=== PATIENT | female | born 1955 | race Caucasian/White ===

== ENCOUNTER 2023-03-09 12:28 | Emergency (ER) | payer MEDICARE, SELFPAY ==
--- NOTE | ~2023-03-09 | CT_ITS ---
EXAMINATION: CT abdomen pelvis wo con DATE: 03/09/2023 14:38 INDICATION: Right lower quadrant pain. Hematuria. TECHNIQUE: Computed tomography (CT) of the abdomen and pelvis was performed without intravenous contr ast. The dose-length product was 1002.51 mGy-cm. Automated exposure control and iterative reconstruct ion technique were employed. COMPARISON: No prior studies for comparison. FINDINGS: Lung bases are unremarkable. Heart size normal. No significant pleural or pericardial effus ion. No significant vascular abnormality. No lymphadenopathy. Small fat-containing umbilical hernia. Fatty infiltration of the liver. The spleen, pancreas, adrenal glands and left kidney are unremarkabl e. There is a 3 mm distal right ureteral stone with moderate right hydronephrosis. The left kidney is unremarkable. Normal appendix. Gallbladder is present. Moderate lumbar spondylosis. There is a punct ate 1 mm nonobstructing right renal stone. There is a gallstone. IMPRESSION: 1. Distal right ureteral stone measuring 3 mm with moderate hydronephrosis. 2: Punctate 1 mm right renal stone. 3: Cholelithiasis. 4: Hepatic steatosis. Reviewed, dictated and finalized at location []
[2023-03-09 12:41] VITALS: BP 178/98; PULSE 104; TEMP 36.5; O2SAT 97
[2023-03-09 14:08] LABS: Basophils Percent Auto 0.1 % (0.2-1.2); Hematocrit 43.2 % (37.0-47.0); Hemoglobin 14.6 g/dL (12.0-15.0); Immature Granulocyte Absolute 0.06 K/mm3 (0.00-0.031); Immature Granulocyte Percent A 0.4 % (0-0.5); Lymphocytes Absolute Auto 1.96 K/mm3 (0.9-3.2); Mean Corpuscular HGB Conc 33.8 g/dl (32-36); Mean Corpuscular Hemoglobin 29.3 pg (26-34); Mean Corpuscular Volume 86.7 fl (80-100); Mean Platelet Volume 10.5 fl (7.4-10.4); Monocytes Absolute Auto 0.6 K/mm3 (0.1-0.6); Monocytes Percent Auto 4.3 % (2.6-8.5); Neutrophils Absolute Auto 11.3 K/mm3 (1.3-6.7); Neutrophils Percent Auto 81.2 % (45.5-73.1); Platelet Count Result 214 k/mm3 (150-375); Red Blood Count 4.98 M/mm3 (4.2-5.4); Red Cell Distribution Width 12.3 % (11.5-14.5)
[2023-03-09 14:19] LABS: INR 0.9; Prothrombin Time 12.9 Seconds (11.1-14.7)
[2023-03-09 14:20] LABS: Lactic Acid Reflex 3.6 mmol/L (0.7-2.0); Partial Thromboplastin Time 25.4 SECONDS (22.3-36.8)
[2023-03-09 14:22] LABS: Appearance Urine Cloudy (Clear); Bacteria Urine None Seen /hpf; Bilirubin Urine Negative (Negative); Blood Urine 3+ (Negative); Color Urine Dark Yellow (Yellow); Glucose Urine UA Negative (Negative); Ketones Urine 2+ mg/dL (Negative); Leukocyte Esterase Ur 2+ LEU/UL (Negative); Need Manual Microscopic Reviewed; Nitrate Urine Negative (Negative); Protein Urine Trace mg/dL (Negative); RBC Urine 21-50 /hpf (0-2); Specific Grav Ur 1.023 (1.001-1.035); Squamous Epithelial Cell Urine Few /hpf (Few); Urobilinogen Urine 0.2 mg/dL (<2.0); WBC Urine 0-5 /hpf; pH Urine 5.5 (5.0-9.0)
--- NOTE | 2023-03-09 14:22 | ED.ABDPAIN ---
HPI - Abdominal Pain General Chief Complaint: Abdominal Pain Stated Complaint: abdominal pain Time Seen by Provider: 03/09/23 12:47 History of Present Illness HPI narrative: 67-year-old female presented the emergency department for evaluation of right-sided abdominal pain. Patient was recently treated for a urinary tract infection due to her hematuria, patient states that she did take the antibiotics, her urine culture came back negative and patient is still having right lower quadrant pain. Patient presented to the emergency department for further evaluation. Patient has no prior history of kidney stones. Review of Systems Review of Systems: All systems reviewed & are unremarkable except as noted in HPI and below Exam Narrative: APPEARANCE: Well appearing, no pain, no distress, well-nourished. HEAD: normocephalic, atraumatic. EYES: PERRLA/EOMI, conjunctivae clear. NOSE: Normal no drainage NECK: Supple. No adenopathy, no masses. RESPIRATORY: Airway patent, respirations nonlabored. Clear to auscultation bilaterally, no rales, rhonchi, wheezing. CARDIOVASCULAR: Regular rate and rhythm without murmurs rubs or gallops. ABDOMINAL: Soft, right lower quadrant pain without significant tenderness to palpation MUSCULOSKELETAL: Moves all extremities. Strength/ROM intact, No edema, No calf tenderness. NEURO: Alert. Cranial nerves II through XII intact. Grossly intact SKIN: Warm, dry. Normal Color PSYCHIATRIC: Normal affect/mood. Course Course Emergency Course: Patient is afebrile but is tachycardic. Patient has a leukocytosis of 14.1. Patient's lactic acid is elevated at 3.6. Patient was treated with 1 L IV saline. Patient lactic acid was normal after rehydration. UA showed no evidence of infection but did show some hematuria. CT scan did show distal right ureteral stone measuring 3 mm with moderate hydronephrosis. Patient declined any medications for pain control in the ED. A follow-up will be provided medications for pain control for home. Patient was updated on the results of the work-up and was encouraged of close follow-up with urology. Patient was also educated on reasons to return to the emergency department. All question concerns were addressed. Vital Signs Vital signs: Vital Signs Temperature 97.7 F 03/09/23 12:41 Pulse Rate 104 H 03/09/23 12:41 Blood Pressure 178/98 H 03/09/23 12:41 Pulse Oximetry 97 03/09/23 12:41 Temperature 97.7 F 03/09/23 12:41 Pulse Rate 104 H 03/09/23 12:41 Blood Pressure 178/98 H 03/09/23 12:41 Pulse Oximetry 97 03/09/23 12:41 MDM - Abdominal Pain Lab Data Attestation: I reviewed the patient's lab results. 03/09/23 13:59 03/09/23 13:59 Labs: Lab Results 03/09/23 03/09/23 Range/Units 13:59 16:26 WBC 14.0 H (4.5-10.0) K/mm3 RBC 4.98 (4.2-5.4) M/mm3 Hgb 14.6 (12.0-15.0) g/dL Hct 43.2 (37.0-47.0) % MCV 86.7 (80-100) fl MCH 29.3 (26-34) pg MCHC 33.8 (32-36) g/dl RDW 12.3 (11.5-14.5) % Plt Count 214 (150-375) k/mm3 MPV 10.5 H (7.4-10.4) fl Immature Gran % (Auto) 0.4 (0-0.5) % Neut % (Auto) 81.2 H (45.5-73.1) % Lymph % (Auto) 14.0 L (18.3-44.2) % [place] % (Auto) 4.3 (2.6-8.5) % Eos % (Auto) 0.0 (0-4.4) % Baso % (Auto) 0.1 L (0.2-1.2) % Lymph # (Auto) 1.96 (0.9-3.2) K/mm3 [place] # (Auto) 0.6 (0.1-0.6) K/mm3 Eos # (Auto) 0.0 (0-0.3) K/mm3 Baso # (Auto) 0.0 (0.0-0.1) K/mm3 Abs Immat Gran (auto) 0.06 H (0.00-0.031) K/mm3 Absolute Neuts (auto) 11.3 H (1.3-6.7) K/mm3 Absolute Nucleated RBC 0.0 (0.0-0.012) K/mm3 Nucleated RBC % 0.0 (0.0-0.2) % PT 12.9 (11.1-14.7) Seconds INR 0.9 APTT 25.4 (22.3-36.8) SECONDS Sodium 139 (137-145) mmol/L Potassium 3.5 (3.4-5.0) mmol/L Chloride 99 (98-107) mmol/L Carbon Dioxide 29 (22-30) mmol/L Anion Gap 11 (8-16) mmol/L BUN 19 H (7-17) mg/dL Creatinine 0.80 (0.7-1.
[2023-03-09 14:23] LABS: Add Urine Microscopic? YES; Albumin Level 4.8 g/dL (3.5-5.1); Alkaline Phosphatase 123 U/L (38-126); Anion Gap 11 mmol/L (8-16); Aspartate Amino Transferase 37 U/L (14-36); Bilirubin,Total 1.4 mg/dL (0.2-1.3); Blood Urea Nitrogen 19 mg/dL (7-17); Calcium 9.7 mg/dL (8.4-10.2); Carbon Dioxide 29 mmol/L (22-30); Chloride 99 mmol/L (98-107); Estimated Glomerular Filt Rate > 60; Glucose 151 mg/dL (65-110); Potassium 3.5 mmol/L (3.4-5.0); Sodium 139 mmol/L (137-145)
[2023-03-09 14:27] LABS: Alanine Aminotransferase 47 U/L (6-35)
[2023-03-09] MEDS: SODIUM CHLORIDE 0.9% IV 1,000 ML 999 ML IV CONT (15:10)
[2023-03-09 16:45] LABS: Lactic Acid Reflex 2.1 mmol/L (0.7-2.0)
[2023-03-09 17:06] LABS: Reflex Lactic Acid Yes or No Add Lactic
== END 2023-03-09 17:39 | disposition home or self-care (01) ==
PROVIDERS: Emergency Provider Emergency Medicine; PCP Internal Medicine Gastroenterology
DX: N13.2 Hydronephrosis with renal and ureteral calculous obstruction (principal); R31.9 Hematuria, unspecified; K76.0 Fatty (change of) liver, not elsewhere classified; K80.20 Calculus of gallbladder without cholecystitis without obstruction
CPT/HCPCS: 36415; 74176; 80053; 81001; 83605; 85025; 85610; 85730; 96360; 99284; J7030

== ENCOUNTER 2024-10-15 09:03 | Inpatient (IN) | payer MEDICARE, SELFPAY ==
[2024-10-15] VITALS (13 sets, daily range): BP systolic 120–153; BP diastolic 63–93; PULSE 92–113; RESP 15–20; TEMP 36.3–37.4; O2SAT 93–98; BMI 37.8
--- NOTE | ~2024-10-15 | CT_ITS ---
EXAMINATION: CT abdomen pelvis w con DATE: 10/15/2024 10:32 INDICATION: Right lower abdominal pain, nausea and vomiting TECHNIQUE: Computed tomography (CT) of the abdomen and pelvis was performed with 100 mL Omnipaque-350 intravenous contrast. Automated exposure control and iterative reconstruction technique were employe d. The dose-length product was 704.31 mGy-cm. COMPARISON: CT dated 03/09/2023 FINDINGS: Mild atelectasis in the right lower lobe. Heart size normal. Atherosclerotic coronary artery calcific location. No pericardial effusion. Postoperative changes with surgical clips at the left breast. Sma ll sliding-type hiatal hernia. Couple calcified gallstones the dependent aspect of the otherwise norm al-appearing gallbladder. Liver, spleen, pancreas, bilateral adrenal glands are normal. 1.2 cm soft t issue density lesion at the lower pole of the right kidney equivocal for neoplasm versus complex prot einaceous/hemorrhagic cyst. Small bowel and appendix are normal. Normal appendix. Small diverticulum along a loop of small bowel in the central abdomen. There is wall thickening in the proximal colon wa s gently mild but more prominent in the region of the hepatic flexure where there is inflammatory str anding, groundglass and small nodular soft tissue densities in the surrounding fat which is all new s wagner the prior study. No abscess, free intraperitoneal gas or significant ascites. Partially decompre ssed bladder is normal. The uterus and bilateral ovaries are not identified there are surgical clips in the pelvis consistent with likely prior hysterectomy and bilateral salpingo-oophorectomy. Interval increase in size of a cluster of small aortocaval lymph nodes the largest measuring 9 mm in maximal short axis diameter. No pathologically enlarged abdominal or pelvic lymphadenopathy. Mild lumbar dext roscoliosis with moderate spondylosis. IMPRESSION: 1. Wall thickening at the hepatic flexure the colon with prominent surrounding inflammatory stranding without abscess or free intraperitoneal gas which could be due to radiographically uncomplicated foc al colitis, diverticulitis or malignancy. Recommend colonoscopy for further evaluation. 2. Indeterminate 1.2 cm soft tissue density lesion at the lower pole the right kidney which could rep resent renal cell carcinoma or a complex proteinaceous/hemorrhagic cyst. Recommend further evaluation with pre and postcontrast MRI or CT. 3. Small sliding-type hiatal hernia. 4. Cholelithiasis. 5. Mild aortocaval lymphadenopathy most likely reactive although could not exclude metastatic disease in the setting of malignancy. Reviewed, dictated and finalized at location A. EMS MECHANIC IMPRESSION: 1. Wall thickening at the hepatic flexure the colon with prominent surrounding inflammatory stranding without abscess or free intraperitoneal gas which could be due to radiographically uncomplicated focal colitis, diverticulitis or malig susy. Recommend colonoscopy for further evaluation. 2. Indeterminate 1.2 cm soft tissue density lesion at the lower pole the right kidney which could represent renal cell carcinoma or a complex proteinaceous/he morrhagic cyst. Recommend further evaluation with pre and postcontrast MRI or C T. 3. Small sliding-type hiatal hernia. 4. Cholelithiasis. 5. Mild aortocaval lymphadenopathy most likely reactive although could not excl ude metastatic disease in the setting of malignancy.
--- NOTE | ~2024-10-15 | US_ITS ---
EXAMINATION: US abdomen limited DATE: 10/17/2024 08:30 INDICATION: Nausea and vomiting. TECHNIQUE: Multiple grayscale and Doppler ultrasound images of the abdomen were obtained. COMPARISON: CT abdomen and pelvis 10/15/2024 FINDINGS: The visualized portions of the head, body, and tail of pancreas are normal. There is diffus e hepatic steatosis. There is normal flow in main portal vein. The gallbladder is normal in size cont ains gallstones. No gallbladder wall thickening or sonographic Maurer sign. The common duct is normal and measures 4 mm. IMPRESSION: 1. Diffuse hepatic steatosis. 2. Cholelithiasis. No evidence of acute cholecystitis. Reviewed, dictated and finalized at location B. GE PERSON
[2024-10-15 09:53] LABS: Basophils Percent Auto 0.2 % (0.2-1.2); Hematocrit 44.5 % (37.0-47.0); Hemoglobin 14.8 g/dL (12.0-15.0); Immature Granulocyte Absolute 0.09 K/mm3 (0.00-0.031); Immature Granulocyte Percent A 0.4 % (0-0.5); Lymphocytes Absolute Auto 1.62 K/mm3 (0.9-3.2); Lymphocytes Percent Auto 6.9 % (18.3-44.2); Mean Corpuscular HGB Conc 33.3 g/dl (32-36); Mean Corpuscular Hemoglobin 28.6 pg (26-34); Mean Corpuscular Volume 86.1 fl (80-100); Mean Platelet Volume 10.4 fl (7.4-10.4); Neutrophils Absolute Auto 20.8 K/mm3 (1.3-6.7); Neutrophils Percent Auto 88.5 % (45.5-73.1); Platelet Count Result 296 k/mm3 (150-375); Red Blood Count 5.17 M/mm3 (4.2-5.4); Red Cell Distribution Width 12.1 % (11.5-14.5); White Blood Count 23.5 K/mm3 (4.5-10.0)
--- NOTE | 2024-10-15 09:56 | ED_ITS ---
HPI - Female Genitourinary General Chief complaint: Urogenital-Female <ALIZA Ma Last Filed: 10/15/24 13:23> Stated complaint: R FLANK PAIN,N/V <Nava Lopez PA-C - Last Filed: 10/15/24 13:23> Time Seen by Provider: 10/15/24 09:30 <ALIZA Ma Last Filed: 10/15/24 13:23> Source: patient <ALIZA Ma Last Filed: 10/15/24 13:23> Mode of arrival: ambulatory <ALIZA Ma Last Filed: 10/15/24 13:23> Limitations: no limitations <ALIZA Ma Last Filed: 10/15/24 13:23> History of Present Illness HPI Narrative: Patient is a 68 y/o female who presents to the ED with c/o right lower abdominal pain. Patient reports pain has been ongoing for the last week or so, but became worse over the last 2 days. Does radiate around to her lower back. States she was diagnosed with a UTI on 10/08 at her primary care doctor's office. Started on Cipro for 5 days. Completed this, but reported no change in symptoms. Reported having nausea and vomiting last night and today. Denies dysuria, hematuria, fevers. Does have history of previous kidney stone. <ALIZA Ma Last Filed: 10/15/24 13:23> Related Data Home medications: Home Medications ?Medication ?Instructions ?Recorded ?Confirmed ?Last Taken ?Type amlodipine 5 mg tablet 5 mg PO DAILY 10/15/24 10/15/24 10/15/24 History aspirin 81 mg chewable tablet 81 mg PO DAILY 10/15/24 10/15/24 10/14/24 History ezetimibe 10 mg tablet 10 mg PO DAILY 10/15/24 10/15/24 10/14/24 History losartan 100 1 tablet PO DAILY 10/15/24 10/15/24 10/15/24 History mg-hydrochlorothiazide 12.5 mg tablet metoprolol succinate 50 mg 50 mg PO Q12H 10/15/24 10/15/24 10/14/24 History tablet,extended release 24 hr potassium chloride 10 mEq 10 meq PO DAILY 10/15/24 10/15/24 10/14/24 History tablet,extended release pravastatin 40 mg tablet 40 mg PO DAILY 10/15/24 10/15/24 10/14/24 History <Nava Lopez PA-C - Last Filed: 10/15/24 13:23> Allergies/Adverse reactions: Allergies Allergy/AdvReac Type Severity Reaction Status Date / Time No Known Allergies Allergy Verified 10/15/24 09:05 <Nava Lopez PA-C - Last Filed: 10/15/24 13:23> Review of Systems 2 Review of Systems: All systems reviewed & are unremarkable except as noted in HPI. <Nava Lopez PA-C - Last Filed: 10/15/24 13:23> All systems reviewed & are unremarkable except as noted in HPI and below < Nava Lopez PA-C - Last Filed: 10/15/24 13:23> [facility] Family History Family History: Family History (Updated 10/15/24 @ 15:00 by Denia Diaz RN) Sibling Lung cancer COVID Diabetes mellitus Father Leukemia Mother Heart trouble <Nava Lopez PA-C - Last Filed: 10/15/24 13:23> Social History Social History: Social History Smoking status: Never smoker Alcohol intake: never Substance use: never Do You Feel Safe in your Home?: Yes Lack of Transportation: No Lack of Food: Never True Current Housing: I Have Housing Concerned About Future Housing: No Difficulty Paying Gas/Electric Bills: No Difficulty Paying for Meds: No Currently Unemployed: No Education: Grade School Difficulty w/ Childcare or Family Care: No Spiritual care concerns: No <Nava Lopez PA-C - Last Filed: 10/15/24 13:23> Exam 2 Narrative: GENERAL: Well appearing, obese with BMI of 36.1, non-toxic, in no acute distress. HEAD: Normocephalic, atraumatic. RESPIRATORY: Airway patent, respirations nonlabored. Clear to auscultation bilaterally, no rales, rhonchi, wheezing. CARDIOVASCULAR: Regular rate and rhythm without murmurs, rubs, or gallops. ABDOMINAL: Soft, mild tenderness and right upper, mid/lower abdomen. Nondistended. Normoactive BS. No significant CVA tenderness to percussion. MUSCULOSKELETAL: Moves all extremities. No gross deformities. SKIN: Warm, dry, normal color. NEURO: A&O X3. Speech clear. Cranial nerves II-XII grossly intact. Steady gait. No ataxic movements. PSYCHIATRIC: Appropriate mood and affect. Normal interaction. <Nava Lopez PA-C - Last Filed: 10/15/24 13:23> Course COLOR PASTE MIXING SUPERVISOR/PA Physician Supervision For this patient encounter, I reviewed the COLOR PASTE MIXING SUPERVISOR or PA documentation, treatment plan, and medical decision making; and I had [id number] time with this patient. <Baldemar Greenberg MD - Last Filed: 10/15/24 18:38> Vital Signs Vital signs: Vital Signs Temperature 98.6 F 10/15/24 09:04 Pulse Rate 100 10/15/24 09:04 Respiratory Rate 16 10/15/24 09:04 Blood Pressure 150/73 H 10/15/24 09:04 Pulse Oximetry 98 10/15/24 09:04 Oxygen Delivery Room Air 10/15/24 09:04 Temperature 99.3 F 10/15/24 14:05 Pulse Rate 101 H 10/15/24 16:04 Respiratory Rate 16 10/15/24 14:30 Blood Pressure 136/70 10/15/24 14:05 Pulse Oximetry 93 10/15/24 14:30 Oxygen Delivery Room Air 10/15/24 14:30 <Nava Lopez PA-C - Last Filed: 10/15/24 13:23> Vital Signs Temperature 98.6 F 10/15/24 09:04 Pulse Rate 100 10/15/24 09:04 Respiratory Rate 16 10/15/24 09:04 Blood Pressure 150/73 H 10/15/24 09:04 Pulse Oximetry 98 10/15/24 09:04 Oxygen Delivery Room Air 10/15/24 09:04 Temperature 99.3 F 10/15/24 14:05 Pulse Rate 101 H 10/15/24 16:04 Respiratory Rate 16 10/15/24 14:30 Blood Pressure 136/70 10/15/24 14:05 Pulse Oximetry 93 10/15/24 14:30 Oxygen Delivery Room Air 10/15/24 14:30 <Baldemar Greenberg MD - Last Filed: 10/15/24 18:38> MDM - Female Genitourinary MDM Narrative Medical decision making narrative: Patient presented to ED with right lower abdominal pain, N/V, recent UTI. Vital signs are stable upon arrival. Patient is in no acute distress. CBC with elevated white blood cell count of 23.5. Neutrophil predominance. No bandemia. CMP with potassium 3.2. Oral replacement given. Mild anion gap of 17. Normal bicarb. Fluids initiated. Blood sugar is very mildly elevated to 175. Kidney function is stable. Normal LFTs. UA with trace ketones, 1+ leuk esterase, 6-10 whites. No urine bacteria seen. Sent for culture. CT scan of abd/pelvis obtained and showing area of wall thickening at hepatic flexure, could be consistent with focal colitis vs diverticulitis vs malignancy. Given marked leukocytosis, blood cultures obtained, will start antibiotics for colitis/diverticulitis/infectious process. Patient is meeting criteria for sepsis based on VS, leukocytosis. Lactic acid is also elevated to 3.7. Will continue to trend. Radiology recommended colonoscopy for further eval. Discussed lab and imaging findings with patient, need for admission. She is in agreement with plan. Will discuss with GI. Patient did have a colonoscopy last year. She states she had 6 polyps at that time. Was due to have repeat scope this year, but has not scheduled this yet. States last BM was this morning and yesterday and was normal. No rectal bleeding or melena. Discussed case with Dr. Turpin, GI, will consult. Advised likely do not need to repeat colonoscopy given patient had one performed last year. Discussed case with Dr. Adam, hospitalist, accepted patient for admission. Patient is in agreement with plan. <Nava Lopez PA-C - Last Filed: 10/15/24 13:23> Medical Records Attestation: I reviewed the patient's medical records. <Nava Lopez PA-C - Last Filed: 10/15/24 13:23> Lab Data Attestation: I reviewed the patient's lab results. <Nava Lopez PA-C - Last Filed: 10/15/24 13:23> Result diagrams: 10/15/24 09:44 10/15/24 09:44 <Nava Lopez PA-C - Last Filed: 10/15/24 13:23> Labs: Lab Results 10/15/24 10/15/24 Range/Units 09:44 10:59 WBC 23.5 H (4.5-10.0) K/mm3 RBC 5.17 (4.2-5.4) M/mm3 Hgb 14.8 (12.0-15.0) g/dL Hct 44.5 (37.0-47.0) % MCV 86.1 (80-100) fl MCH 28.6 (26-34) pg MCHC 33.3 (32-36) g/dl RDW 12.1 (11.5-14.5) % Plt Count 296 (150-375) k/mm3 MPV 10.4 (7.4-10.4) fl Immature Gran % (Auto) 0.4 (0-0.5) % Neut % (Auto) 88.5 H (45.5-73.1) % Lymph % (Auto) 6.9 L (18.3-44.2) % [place] % (Auto) 4.0 (2.6-8.5) % Eos % (Auto) 0.0 (0-4.4) % Baso % (Auto) 0.2 (0.2-1.2) % Lymph # (Auto) 1.62 (0.9-3.2) K/mm3 [place] # (Auto) 1.0 H (0.1-0.6) K/mm3 Eos # (Auto) 0.0 (0-0.3) K/mm3 Baso # (Auto) 0.0 (0.0-0.1) K/mm3 Abs Immat Gran (auto) 0.09 H (0.00-0.031) K/mm3 Absolute Neuts (auto) 20.8 H (1.3-6.7) K/mm3 Absolute Nucleated RBC 0.000 (0.0-0.012) K/mm3 Nucleated RBC % 0.0 (0.0-0.2) % Sodium 139 (137-145) mmol/L Potassium 3.2 L (3.4-5.0) mmol/L Chloride 95 L (98-107) mmol/L Carbon Dioxide 27 (22-30) mmol/L Anion Gap 17 H (4-12) mmol/L BUN 17 (7-17) mg/dL Creatinine 0.65 L (0.7-1.0) mg/dL Estim Creat Clear Calc 71 ml/min Estimated GFR > 60 (59 - ) Glucose 175 H (65-110) mg/dL Lactic Acid 3.7 H (0.7-2.0) mmol/L Calcium 10.6 H (8.4-10.2) mg/dL Magnesium 1.8 (1.6-2.3) mg/dL Total Bilirubin 1.3 (0.2-1.3) mg/dL AST 27 (14-36) U/L ALT 26 (6-35) U/L Alkaline Phosphatase 108 (38-126) U/L Total Protein 9.0 H (6.3-8.2) g/dL Albumin 4.8 (3.5-5.1) g/dL Urine Color Dark yellow (Yellow) Urine Appearance Cloudy H (Clear) Urine pH 5.5 (5.0-9.0) Ur Specific [place] 1.033 (1.001-1.035) Urine Protein 1+ H (Negative) mg/dL Urine Glucose (UA) Negative (Negative) mg/dL Urine Ketones Trace H (Negative) mg/dL Ur Blood (Man) Negative (Negative) Urine Nitrate Negative (Negative) Urine Bilirubin 1+ H (Negative) Urine Urobilinogen 1.0 (<2.0) mg/dL Add Ur Microanalysis Reviewed Leukocyte Esterase Rfl 1+ H (Negative) JULIAN/UL Urine RBC 6-10 H (0-2) /hpf Urine WBC 6-10 H (0-3) /hpf Ur Squamous Epith Cells Many H (Few) /hpf Calcium Oxalate Crystal Present (None) /hpf Urine Bacteria None seen /hpf Urine Casts 3-5 <Nava Lopez PA-C - Last Filed: 10/15/24 13:23> Lab Results 10/15/24 10/15/24 Range/Units 09:44 10:59 WBC 23.5 H (4.5-10.0) K/mm3 RBC 5.17 (4.2-5.4) M/mm3 Hgb 14.8 (12.0-15.0) g/dL Hct 44.5 (37.0-47.0) % MCV 86.1 (80-100) fl MCH 28.6 (26-34) pg MCHC 33.3 (32-36) g/dl RDW 12.1 (11.5-14.5) % Plt Count 296 (150-375) k/mm3 MPV 10.4 (7.4-10.4) fl Immature Gran % (Auto) 0.4 (0-0.5) % Neut % (Auto) 88.5 H (45.5-73.1) % Lymph % (Auto) 6.9 L (18.3-44.2) % [place] % (Auto) 4.0 (2.6-8.5) % Eos % (Auto) 0.0 (0-4.4) % Baso % (Auto) 0.2 (0.2-1.2) % Lymph # (Auto) 1.62 (0.9-3.2) K/mm3 [place] # (Auto) 1.0 H (0.1-0.6) K/mm3 Eos # (Auto) 0.0 (0-0.3) K/mm3 Baso # (Auto) 0.0 (0.0-0.1) K/mm3 Abs Immat Gran (auto) 0.09 H (0.00-0.031) K/mm3 Absolute Neuts (auto) 20.8 H (1.3-6.7) K/mm3 Absolute Nucleated RBC 0.000 (0.0-0.012) K/mm3 Nucleated RBC % 0.0 (0.0-0.2) % Sodium 139 (137-145) mmol/L Potassium 3.2 L (3.4-5.0) mmol/L Chloride 95 L (98-107) mmol/L Carbon Dioxide 27 (22-30) mmol/L Anion Gap 17 H (4-12) mmol/L BUN 17 (7-17) mg/dL Creatinine 0.65 L (0.7-1.0) mg/dL Estim Creat Clear Calc 71 ml/min Estimated GFR > 60 (59 - ) Glucose 175 H (65-110) mg/dL Lactic Acid 3.7 H (0.7-2.0) mmol/L Calcium 10.6 H (8.4-10.2) mg/dL Magnesium 1.8 (1.6-2.3) mg/dL Total Bilirubin 1.3 (0.2-1.3) mg/dL AST 27 (14-36) U/L ALT 26 (6-35) U/L Alkaline Phosphatase 108 (38-126) U/L Total Protein 9.0 H (6.3-8.2) g/dL Albumin 4.8 (3.5-5.1) g/dL Urine Color Dark yellow (Yellow) Urine Appearance Cloudy H (Clear) Urine pH 5.5 (5.0-9.0) Ur Specific [place] 1.033 (1.001-1.035) Urine Protein 1+ H (Negative) mg/dL Urine Glucose (UA) Negative (Negative) mg/dL Urine Ketones Trace H (Negative) mg/dL Ur Blood (Man) Negative (Negative) Urine Nitrate Negative (Negative) Urine Bilirubin 1+ H (Negative) Urine Urobilinogen 1.0 (<2.0) mg/dL Add Ur Microanalysis Reviewed Leukocyte Esterase Rfl 1+ H (Negative) JULIAN/UL Urine RBC 6-10 H (0-2) /hpf Urine WBC 6-10 H (0-3) /hpf Ur Squamous Epith Cells Many H (Few) /hpf Calcium Oxalate Crystal Present (None) /hpf Urine Bacteria None seen /hpf Urine Casts 3-5 <Baldemar Greenberg MD - Last Filed: 10/15/24 18:38> Imaging Data Attestation: I personally reviewed and interpreted this imaging study as follows: < Nava Lopez PA-C - Last Filed: 10/15/24 13:23> Radiologist's impression: ITS Impressions Abdomen/Pelvis CT 10/15/24 10:33 IMPRESSION: 1. Wall thickening at the hepatic flexure the colon with prominent surrounding inflammatory stranding without abscess or free intraperitoneal gas which could be due to radiographically uncomplicated focal colitis, diverticulitis or malignancy. Recommend colonoscopy for further evaluation. 2. Indeterminate 1.2 cm soft tissue density lesion at the lower pole the right kidney which could represent renal cell carcinoma or a complex proteinaceous/hemorrhagic cyst. Recommend further evaluation with pre and postcontrast MRI or CT. 3. Small sliding-type hiatal hernia. 4. Cholelithiasis. 5. Mild aortocaval lymphadenopathy most likely reactive although could not exclude metastatic disease in the setting of malignancy. <Nava Lopez PA-C - Last Filed: 10/15/24 13:23> Discharge Plan Discharge Clinical Impression: Colitis, Right sided abdominal pain, Lesion of right [place] kidney Sepsis Qualifiers: Sepsis type: sepsis due to unspecified organism Sepsis acute organ dysfunction status: unspecified Qualified Code(s): A41.9 - Sepsis, unspecified organism <ALIZA Ma Last Filed: 10/15/24 13:23> Patient Disposition: Still a Patient <ALIZA Ma Last Filed: 10/15/24 13:23> Condition: Stable <ALIZA Ma Last Filed: 10/15/24 13:23>
[2024-10-15 10:07] LABS: Add Urine Microscopic? YES; Albumin Level 4.8 g/dL (3.5-5.1); Alkaline Phosphatase 108 U/L (38-126); Anion Gap 17 mmol/L (4-12); Appearance Urine Cloudy (Clear); Aspartate Amino Transferase 27 U/L (14-36); Bacteria Urine None Seen /hpf; Bilirubin Urine 1+ (Negative); Bilirubin,Total 1.3 mg/dL (0.2-1.3); Blood Urea Nitrogen 17 mg/dL (7-17); Blood Urine Negative (Negative); Calcium 10.6 mg/dL (8.4-10.2); Calcium Oxalate Crystals Urine Present /hpf; Carbon Dioxide 27 mmol/L (22-30); Chloride 95 mmol/L (98-107); Color Urine Dark Yellow (Yellow); Estimated CRCL calculation 71 ml/min; Estimated Glomerular Filt Rate > 60; Glucose 175 mg/dL (65-110); Glucose Urine UA Negative (Negative); Ketones Urine Trace mg/dL (Negative); Leukocyte Esterase Ur 1+ LEU/UL (Negative); Need Manual Microscopic Reviewed; Nitrate Urine Negative (Negative); Potassium 3.2 mmol/L (3.4-5.0); Protein Urine 1+ mg/dL (Negative); Sodium 139 mmol/L (137-145); Specific Grav Ur 1.033 (1.001-1.035); Squamous Epithelial Cell Urine Many /hpf (Few); pH Urine 5.5 (5.0-9.0)
[2024-10-15 10:10] LABS: Alanine Aminotransferase 26 U/L (6-35)
[2024-10-15] MEDS: MORPHINE SULFATE (*CRX) 2 MG/ML INJ IV PUSH (10:19)
[2024-10-15] MEDS: ONDANSETRON INJ 4 MG/2 ML VIAL IV PUSH (10:21)
[2024-10-15] MEDS: POTASSIUM CHLORIDE 20 MEQ ER TABLET 40 MEQ PO (10:21)
[2024-10-15] MEDS: SODIUM CHLORIDE 0.9% IV 1,000 ML 999 ML IV CONT ×2 (10:21→11:47)
[2024-10-15 10:23] LABS: Magnesium 1.8 mg/dL (1.6-2.3)
[2024-10-15 11:18] LABS: Lactic Acid Reflex 3.7 mmol/L (0.7-2.0)
[2024-10-15 12:29] LABS: Procalcitonin 0.1 ng/mL
[2024-10-15] MEDS: metroNIDAZOLE 500 MG/ISO 100ML 500 MG/100 ML BAG 100 MG IVPB ×2 (12:30→20:28)
--- NOTE | 2024-10-15 13:44 | P.HP_ITS ---
H&P: HPI History of Present Illness Date/Time: 10/15/24 13:44 Chief Complaint: abd pain and vomiting Narrative: 68-year-old male past medical history of cervical breast cancer, hypertension presented to the ER on account of vomiting and abdominal pain. Patient she stated having some pain which she described as sharp, in the right lower abdominal region associated with any vomiting patient and she vomited for most of the night which caused her to present to the ER Denies ay chest pain, SOB, dysuria, focal deficits or trauma. CT AP showed showed wall thickening at hepatic flexure the colon with prominent surrounding inflammatory stranding without abscess or free intraperitoneal gas focal colitis, diverticulitis or malignancy. WBC 23.5, K 3.2, lactic acid 3.7. patient was started on IVF, Rocephin and Flagyl. Gi consulted prior to admission. Review of Systems Review of Systems: All other systems are reviewed and negative except as noted in the history above. Meds Home Medications and Allergies Home Medications ?Medication ?Instructions ?Recorded ?Confirmed ?Type hydrocodone 5 mg-acetaminophen 325 1 tablet PO Q12H PRN pain #10 tabs 03/09/23 Rx mg tablet tamsulosin 0.4 mg capsule (Flomax) 0.4 mg PO DAILY #10 caps 03/09/23 Rx Allergies Allergy/AdvReac Type Severity Reaction Status Date / Time No Known Allergies Allergy Verified 10/15/24 09:05 Vital Signs Vital Signs - 24 hr 10/15/24 09:04 10/15/24 10:48 10/15/24 11:15 Temperature 98.6 F 97.8 F Pulse Rate 100 107 H 105 H Respiratory Rate 16 18 20 Blood Pressure 150/73 H 142/80 H 128/63 Pulse Oximetry 98 94 95 Oxygen Delivery Room Air 10/15/24 11:30 Temperature Pulse Rate 108 H Respiratory Rate 18 Blood Pressure 146/70 H Pulse Oximetry 95 Oxygen Delivery Exam Narrative: General: alert and comfortable Eyes: EOMI, PERRLA ENNT External ears normal, Neck is supple, no masses, Respiratory systems: Clear to auscultation Cardiovascular S1, S2, normal rhythm, no murmur, rub, or gallop; no thrill or palpable murmurs on palpation. Gastrointestinal: soft, RLQ tenderness, and non-distended abdomen with no masses; BS present Skin: no rash, lesions, ulcerations, subcutaneous nodules or induration Musculoskeletal: no abnormality and no tenderness, normal ROM Neurologic: Alert and oriented x3, non focal Mental Status Exam: normal affect H&P: Results Labs Labs: Short CBC 10/15/24 Range/Units 09:44 WBC 23.5 H (4.5-10.0) K/mm3 Hgb 14.8 (12.0-15.0) g/dL Hct 44.5 (37.0-47.0) % Plt Count 296 (150-375) k/mm3 BMP 10/15/24 09:44 Sodium 139 Potassium 3.2 L Chloride 95 L Carbon Dioxide 27 BUN 17 Creatinine 0.65 L Glucose 175 H Calcium 10.6 H Liver Function 10/15/24 Range/Units 09:44 Total Bilirubin 1.3 (0.2-1.3) mg/dL AST 27 (14-36) U/L ALT 26 (6-35) U/L Alkaline Phosphatase 108 (38-126) U/L Albumin 4.8 (3.5-5.1) g/dL Urine 10/15/24 Range/Units 09:44 Urine Color Dark yellow (Yellow) Urine Appearance Cloudy H (Clear) Urine pH 5.5 (5.0-9.0) Ur Specific [place] 1.033 (1.001-1.035) Urine Protein 1+ H (Negative) mg/dL Urine Glucose (UA) Negative (Negative) mg/dL Assessment and Plan Assessment and plan (1) Colitis: Code(s): K52.9 - Noninfective gastroenteritis and colitis, unspecified Status: Acute Plan Sepsis from colitis leukocytosis, tachycardic, lactic acid 3.[address] scan. Presented with abdominal pain and vomiting. Continue IV fluid, blood cultures. Monitor. Colitis Rule out malignancy CT abdomen pelvis reviewed. Continue above treatment. GI consulted from ED. History of breast and cervical cancer Monitor Hypertension Titrate medication clinical course. DVT prophylaxis Sq Lovenox Patient is full code Surrogate decision maker is Gray Estrella Hospitalist [facility] Advance Care Plan I have confirmed that the patient's Advanced Care Plan is present, code status is documented, or surrogate decision maker is listed in patient medical record.: Yes Medication Reconciliation I have utilized all available resources to obtain, update and review the patients current medications (includes all prescriptions, OTC, herbals, cannabis, and nutritional supplements).: Yes
--- NOTE | 2024-10-15 13:50 | PC.NURSE ---
Pt unable to verify home medication. Pt states I didn't plan on staying today.
--- NOTE | 2024-10-15 14:05 | ADMGEN ---
This patient, Hayden Estrella, was admitted to Medical Room 248-. Patient/family oriented to hospital policies and general routines including ID bracelet, bed and alarms, visiting hours, pain management, procedures, bathroom and other care routines, personal items, smoking policy, room service/diet, and visiting hours. Information on how to activate the Rapid Response Team has been discussed. Patient/Family are encouraged to report perceived risks to care and to ask questions if they do not understand what they are told or what they should do.
[2024-10-15 14:06] LABS: Reflex Lactic Acid Yes or No Add Lactic
[2024-10-15] MEDS: SODIUM CHLORIDE 0.9% IV 1,000 ML 75 ML IV CONT (14:35)
[2024-10-15 15:19] LABS: Lactic Acid 2.2 mmol/L (0.7-2.0)
--- NOTE | 2024-10-15 15:23 | WPDGICN ---
Assessment and Plan Assessment and plan (1) Right sided abdominal pain: Code(s): R10.9 - Unspecified abdominal pain Status: Acute Assessment and Plan: The patient's current clinical picture and radiological findings are compatible with right-sided diverticulitis. She is receiving appropriate broad-spectrum antibiotic coverage with ceftriaxone and metronidazole. Patient asked to obtain the report from her previous colonoscopy. The plan is to continue antibiotic therapy and check serial white counts. No need to repeat the colonoscopy for now. Once the pain is improved and the white count normalizes, she can be discharged home with the 14 day course of oral antibiotics. GI Consult Note Consult date/time: 10/15/24 15:23 HPI: Hayden Estrella, is a a 68-year-old female, presented to the emergency department with worsening right-sided flank pain. One week prior, she was diagnosed with a urinary tract infection and treated with ciprofloxacin. However, despite completing the antibiotic course, her pain intensified. Initial symptoms included general malaise and moderate to severe left flank pain, prompting concerns about a possible recurrence of kidney stones, which she experienced previously. Upon presentation, her white blood cell count was elevated at +-23,000/?L. Imaging studies, including a CT scan, revealed inflammation and stranding of fat in the right hepatic flexure, with no evidence of perforation or ascites. The CT scan also reported a possible mass in the inferior pole of the right kidney. of note, she had a colonoscopy in [place] last year, reporting the finding of 6 polyps and diverticulosis. Review of Systems Review of Systems: All systems reviewed & are unremarkable except as noted in HPI and below [facility] Family History Family History (Updated 10/15/24 @ 15:00 by Denia Diaz RN) Sibling Lung cancer COVID Diabetes mellitus Father Leukemia Mother Heart trouble Social History Social History Smoking status: Never smoker Alcohol intake: never Substance use: never Do You Feel Safe in your Home?: Yes Lack of Transportation: No Lack of Food: Never True Current Housing: I Have Housing Concerned About Future Housing: No Difficulty Paying Gas/Electric Bills: No Difficulty Paying for Meds: No Currently Unemployed: No Education: Grade School Difficulty w/ Childcare or Family Care: No Spiritual care concerns: No Meds Home Medications and Allergies Home Medications ?Medication ?Instructions ?Recorded ?Confirmed ?Type amlodipine 5 mg tablet 5 mg PO DAILY 10/15/24 10/15/24 History aspirin 81 mg chewable tablet 81 mg PO DAILY 10/15/24 10/15/24 History ezetimibe 10 mg tablet 10 mg PO DAILY 10/15/24 10/15/24 History losartan 100 1 tablet PO DAILY 10/15/24 10/15/24 History mg-hydrochlorothiazide 12.5 mg tablet metoprolol succinate 50 mg 50 mg PO Q12H 10/15/24 10/15/24 History tablet,extended release 24 hr potassium chloride 10 mEq 10 meq PO DAILY 10/15/24 10/15/24 History tablet,extended release pravastatin 40 mg tablet 40 mg PO DAILY 10/15/24 10/15/24 History Allergies Allergy/AdvReac Type Severity Reaction Status Date / Time No Known Allergies Allergy Verified 10/15/24 09:05 Vital Signs Vital Signs - 24 hr 10/15/24 09:04 10/15/24 10:48 10/15/24 11:15 Temperature 98.6 F 97.8 F Pulse Rate 100 107 H 105 H Respiratory Rate 16 18 20 Blood Pressure 150/73 H 142/80 H 128/63 Pulse Oximetry 98 94 95 Oxygen Delivery Room Air 10/15/24 11:30 10/15/24 12:02 10/15/24 12:34 Temperature Pulse Rate 108 H 102 H 97 Respiratory Rate 18 18 18 Blood Pressure 146/70 H 128/68 127/80 Pulse Oximetry 95 97 97 Oxygen Delivery 10/15/24 13:02 10/15/24 13:55 10/15/24 14:05 Temperature 99.3 F Pulse Rate 96 96 99 Respiratory Rate 15 18 16 Blood Pressure 120/71 136/93 H 136/70 Pulse Oximetry 96 96 93 Oxygen Delivery 10/15/24 14:30 Temperature Pulse Rate 99 Respiratory Rate 16 Blood Pressure Pulse Oximetry 93 Oxygen Delivery Room Air Exam Narrative: Alert oriented x3. Lungs and cardiovascular: Normal. Abdominal exam, tenderness to deep palpation in the right flank and right upper quadrant areas, no rebound. Bowel sounds present and normal. Rest of the exam within normal limits. Results Labs 10/15/24 09:44 10/15/24 09:44 Labs: Short CBC 10/15/24 Range/Units 09:44 WBC 23.5 H (4.5-10.0) K/mm3 Hgb 14.8 (12.0-15.0) g/dL Hct 44.5 (37.0-47.0) % Plt Count 296 (150-375) k/mm3 BMP 10/15/24 09:44 Sodium 139 Potassium 3.2 L Chloride 95 L Carbon Dioxide 27 BUN 17 Creatinine 0.65 L Glucose 175 H Calcium 10.6 H Liver Function 10/15/24 Range/Units 09:44 Total Bilirubin 1.3 (0.2-1.3) mg/dL AST 27 (14-36) U/L ALT 26 (6-35) U/L Alkaline Phosphatase 108 (38-126) U/L Albumin 4.8 (3.5-5.1) g/dL Urine 10/15/24 Range/Units 09:44 Urine Color Dark yellow (Yellow) Urine Appearance Cloudy H (Clear) Urine pH 5.5 (5.0-9.0) Ur Specific [place] 1.033 (1.001-1.035) Urine Protein 1+ H (Negative) mg/dL Urine Glucose (UA) Negative (Negative) mg/dL
[2024-10-15] MEDS: MORPHINE SULFATE (*CRX) 4 MG/ML INJ IV PUSH (20:29)
[2024-10-16] VITALS (9 sets, daily range): BP systolic 131–153; BP diastolic 64–68; PULSE 97–117; RESP 16–20; TEMP 36.3–36.9; O2SAT 90–96
[2024-10-16 06:22] LABS: Basophils Percent Auto 0.2 % (0.2-1.2); Eosinophils Percent Auto 0.1 % (0-4.4); Hematocrit 36.6 % (37.0-47.0); Hemoglobin 11.9 g/dL (12.0-15.0); Immature Granulocyte Absolute 0.12 K/mm3 (0.00-0.031); Immature Granulocyte Percent A 0.6 % (0-0.5); Lymphocytes Percent Auto 10.9 % (18.3-44.2); Mean Corpuscular HGB Conc 32.5 g/dl (32-36); Mean Corpuscular Hemoglobin 28.2 pg (26-34); Mean Corpuscular Volume 86.7 fl (80-100); Monocytes Percent Auto 5.2 % (2.6-8.5); Platelet Count Result 229 k/mm3 (150-375); Red Blood Count 4.22 M/mm3 (4.2-5.4); Red Cell Distribution Width 12.4 % (11.5-14.5); White Blood Count 19.2 K/mm3 (4.5-10.0)
[2024-10-16 06:36] LABS: Alanine Aminotransferase 16 U/L (6-35); Albumin Level 3.7 g/dL (3.5-5.1); Alkaline Phosphatase 84 U/L (38-126); Anion Gap 12 mmol/L (4-12); Aspartate Amino Transferase 20 U/L (14-36); Bilirubin,Total 1.3 mg/dL (0.2-1.3); Blood Urea Nitrogen 13 mg/dL (7-17); Calcium 8.4 mg/dL (8.4-10.2); Carbon Dioxide 23 mmol/L (22-30); Chloride 101 mmol/L (98-107); Estimated CRCL calculation 89 ml/min; Estimated Glomerular Filt Rate > 60; Glucose 148 mg/dL (65-110); Magnesium 1.7 mg/dL (1.6-2.3); Potassium 3.1 mmol/L (3.4-5.0); Sodium 136 mmol/L (137-145)
[2024-10-16 06:37] LABS: Lactic Acid Reflex 1.2 mmol/L (0.7-2.0)
[2024-10-16] MEDS: SODIUM CHLORIDE 0.9% IV 1,000 ML 75 ML IV CONT (06:54)
[2024-10-16] MEDS: metroNIDAZOLE 500 MG/ISO 100ML 500 MG/100 ML BAG 100 MG IVPB ×3 (06:55→21:18)
[2024-10-16] MEDS: ENOXAPARIN 40 MG/0.4 ML SYRINGE SUB-Q (10:03)
--- NOTE | 2024-10-16 15:50 | P.PNGI_ITS ---
Progress Note: A&P Assessment and Plan (1) Right sided abdominal pain: Code(s): R10.9 - Unspecified abdominal pain Status: Acute Assessment and Plan: The patient has what appears to be a right-sided diverticulitis. We obtained the colonoscopy report from 2022, describing polyps and diverticular disease. Although they did not describe polyps in the right colon but only in the sigmoid, but this could have been just a involuntary omission. her white count today is much improved from yesterday although still high. Will Continue current antibiotic regime, obtain follow-up CBC tomorrow and continue to follow clinical course. Subjective Date/time seen: 10/16/24 15:50 Interval history: The patient feels better, however still having right flank and upper quadrant pain when coughing or straining for defecation. No fever. Exam Narrative: Tenderness to palpation in right upper quadrant and right flank. Rest of the exam unchanged from yesterday. Objective Data Vital Signs Vital Signs: Vital Signs - 24 hr 10/15/24 16:04 10/15/24 20:00 10/15/24 20:00 Temperature Pulse Rate 101 H 113 H 92 Respiratory Rate 18 Blood Pressure Pulse Oximetry 94 Oxygen Delivery Room Air 10/15/24 21:55 10/16/24 00:00 10/16/24 04:00 Temperature 97.4 F L Pulse Rate 113 H 105 H 101 H Respiratory Rate 18 Blood Pressure 153/67 H Pulse Oximetry 94 Oxygen Delivery 10/16/24 06:00 10/16/24 14:00 Temperature 97.3 F L 98.2 F Pulse Rate 107 H 105 H Respiratory Rate 16 20 Blood Pressure 131/68 146/68 H Pulse Oximetry 96 91 Oxygen Delivery Intake/Output Intake/Output: Intake & Output 10/13/24 10/14/24 10/15/24 10/16/24 23:59 23:59 23:59 23:59 Intake Total 2340 2780 Balance 2340 2780 Meds/Results Medications: Active Medications Generic Name Dose Route Start Last Admin Trade Name Freq PRN Reason Stop Dose Admin Acetaminophen 650 mg 10/15/24 11:39 Acetaminophen 325 Mg Tablet PO Q4H PRN Mild Pain (1-3) or Fever Enoxaparin Sodium 40 mg 10/16/24 09:00 10/16/24 10:03 Enoxaparin 40 Mg/0.4 Ml Syringe SUB-Q 40 mg DAILY FLORINDA Administration Ceftriaxone Sodium 1 gm in 50 mls @ 100 mls/hr 10/16/24 12:00 10/16/24 11:53 Rocephin 1 Gm/Ns 50 Ml IVPB Infused Q24H FLORINDA Infusion Metronidazole 500 mg in 100 mls @ 100 mls/hr 10/15/24 22:00 10/16/24 14:25 Flagyl 500 Mg/Iso Soln 100 Ml IVPB 100 mls/hr Q8H FLORINDA Administration Sodium Chloride 1,000 mls @ 75 mls/hr 10/15/24 11:40 10/16/24 11:24 Normal Saline Iv IV CONT Infused .[id number] FLORINDA Infusion Morphine Sulfate 4 mg 10/15/24 11:39 10/15/24 20:29 Morphine Sulfate (*Crx) 4 Mg/Ml Inj IV PUSH 4 mg Q2H PRN Administration Pain Rated 7-10 Ondansetron HCl 4 mg 10/15/24 11:39 Ondansetron Inj 4 Mg/2 Ml Vial IV PUSH Q4H PRN Nausea Radiology Results: ITS Impressions Abdomen/Pelvis CT 10/15/24 10:33 IMPRESSION: 1. Wall thickening at the hepatic flexure the colon with prominent surrounding inflammatory stranding without abscess or free intraperitoneal gas which could be due to radiographically uncomplicated focal colitis, diverticulitis or malignancy. Recommend colonoscopy for further evaluation. 2. Indeterminate 1.2 cm soft tissue density lesion at the lower pole the right kidney which could represent renal cell carcinoma or a complex proteinaceous/hemorrhagic cyst. Recommend further evaluation with pre and postcontrast MRI or CT. 3. Small sliding-type hiatal hernia. 4. Cholelithiasis. 5. Mild aortocaval lymphadenopathy most likely reactive although could not exclude metastatic disease in the setting of malignancy. Labs Labs: Laboratory Results - last 24 hr 10/16/24 06:09 WBC 19.2 H RBC 4.22 Hgb 11.9 L Hct 36.6 L MCV 86.7 MCH 28.2 MCHC 32.5 RDW 12.4 Plt Count 229 MPV 10.0 Immature Gran % (Auto) 0.6 H Neut % (Auto) 83.0 H Lymph % (Auto) 10.9 L [place] % (Auto) 5.2 Eos % (Auto) 0.1 Baso % (Auto) 0.2 Lymph # (Auto) 2.10 [place] # (Auto) 1.0 H Eos # (Auto) 0.0 Baso # (Auto) 0.0 Abs Immat Gran (auto) 0.12 H Absolute Neuts (auto) 16.0 H Absolute Nucleated RBC 0.000 Nucleated RBC % 0.0 Sodium 136 L Potassium 3.1 L Chloride 101 Carbon Dioxide 23 Anion Gap 12 BUN 13 Creatinine 0.52 L Estim Creat Clear Calc 89 Estimated GFR > 60 Glucose 148 H Lactic Acid 1.2 Calcium 8.4 Magnesium 1.7 Total Bilirubin 1.3 AST 20 ALT 16 Alkaline Phosphatase 84 Total Protein 7.0 Albumin 3.7
--- NOTE | 2024-10-16 16:11 | P.PNIM_ITS ---
Progress Note: A&P Assessment and Plan (1) Colitis: Code(s): K52.9 - Noninfective gastroenteritis and colitis, unspecified Status: Acute Plan Sepsis from colitis resolving, WBC down 19.2 from 23.5, lactic 1.2 from 3.7, HR improvin g Presented with abdominal pain and vomiting. monitor blood cultures. liberalized diet Monitor. Colitis Rule out malignancy CT abdomen pelvis reviewed. Continue above treatment. GI eval noted History of breast and cervical cancer Monitor Hypertension Titrate medication clinical course. DVT prophylaxis Sq Lovenox Patient is full code Surrogate decision maker is Gray Estrella Subjective Date/time seen: 10/16/24 16:11 Interval history: noted marked improvement but still having elevated heart rate Review of Systems Review of Systems: All other systems are reviewed and negative except as noted in the history above. Exam Narrative: General: alert and comfortable Eyes: EOMI, PERRLA ENNT External ears normal, Neck is supple, no masses, Respiratory systems: Clear to auscultation Cardiovascular S1, S2, normal rhythm, no murmur, rub, or gallop; no thrill or palpable murmurs on palpation. Gastrointestinal: soft, RLQ tenderness, and non-distended abdomen with no masses; BS present Skin: no rash, lesions, ulcerations, subcutaneous nodules or induration Musculoskeletal: no abnormality and no tenderness, normal ROM Neurologic: Alert and oriented x3, non focal Mental Status Exam: normal affect Objective Data Vital Signs Vital Signs: Vital Signs - 24 hr 10/15/24 20:00 10/15/24 20:00 10/15/24 21:55 Temperature 97.4 F L Pulse Rate 113 H 92 113 H Respiratory Rate 18 18 Blood Pressure 153/67 H Pulse Oximetry 94 94 Oxygen Delivery Room Air 10/16/24 00:00 10/16/24 04:00 10/16/24 06:00 Temperature 97.3 F L Pulse Rate 105 H 101 H 107 H Respiratory Rate 16 Blood Pressure 131/68 Pulse Oximetry 96 Oxygen Delivery 10/16/24 14:00 Temperature 98.2 F Pulse Rate 105 H Respiratory Rate 20 Blood Pressure 146/68 H Pulse Oximetry 91 Oxygen Delivery Intake/Output Intake/Output: Intake & Output 10/13/24 10/14/24 10/15/24 10/16/24 23:59 23:59 23:59 23:59 Intake Total 2340 2780 Balance 2340 2780 Meds/Results Medications: Active Medications Generic Name Dose Route Start Last Admin Trade Name Freq PRN Reason Stop Dose Admin Acetaminophen 650 mg 10/15/24 11:39 Acetaminophen 325 Mg Tablet PO Q4H PRN Mild Pain (1-3) or Fever Enoxaparin Sodium 40 mg 10/16/24 09:00 10/16/24 10:03 Enoxaparin 40 Mg/0.4 Ml Syringe SUB-Q 40 mg DAILY FLORINDA Administration Ceftriaxone Sodium 1 gm in 50 mls @ 100 mls/hr 10/16/24 12:00 10/16/24 11:53 Rocephin 1 Gm/Ns 50 Ml IVPB Infused Q24H FLORINDA Infusion Metronidazole 500 mg in 100 mls @ 100 mls/hr 10/15/24 22:00 10/16/24 14:25 Flagyl 500 Mg/Iso Soln 100 Ml IVPB 100 mls/hr Q8H FLORINDA Administration Sodium Chloride 1,000 mls @ 75 mls/hr 10/15/24 11:40 10/16/24 11:24 Normal Saline Iv IV CONT Infused .[id number] FLORINDA Infusion Morphine Sulfate 4 mg 10/15/24 11:39 10/15/24 20:29 Morphine Sulfate (*Crx) 4 Mg/Ml Inj IV PUSH 4 mg Q2H PRN Administration Pain Rated 7-10 Ondansetron HCl 4 mg 10/15/24 11:39 Ondansetron Inj 4 Mg/2 Ml Vial IV PUSH Q4H PRN Nausea Radiology Results: ITS Impressions Abdomen/Pelvis CT 10/15/24 10:33 IMPRESSION: 1. Wall thickening at the hepatic flexure the colon with prominent surrounding inflammatory stranding without abscess or free intraperitoneal gas which could be due to radiographically uncomplicated focal colitis, diverticulitis or malignancy. Recommend colonoscopy for further evaluation. 2. Indeterminate 1.2 cm soft tissue density lesion at the lower pole the right kidney which could represent renal cell carcinoma or a complex proteinaceous/hemorrhagic cyst. Recommend further evaluation with pre and postcontrast MRI or CT. 3. Small sliding-type hiatal hernia. 4. Cholelithiasis. 5. Mild aortocaval lymphadenopathy most likely reactive although could not exclude metastatic disease in the setting of malignancy. Labs Labs: Laboratory Results - last 24 hr 10/16/24 06:09 WBC 19.2 H RBC 4.22 Hgb 11.9 L Hct 36.6 L MCV 86.7 MCH 28.2 MCHC 32.5 RDW 12.4 Plt Count 229 MPV 10.0 Immature Gran % (Auto) 0.6 H Neut % (Auto) 83.0 H Lymph % (Auto) 10.9 L [place] % (Auto) 5.2 Eos % (Auto) 0.1 Baso % (Auto) 0.2 Lymph # (Auto) 2.10 [place] # (Auto) 1.0 H Eos # (Auto) 0.0 Baso # (Auto) 0.0 Abs Immat Gran (auto) 0.12 H Absolute Neuts (auto) 16.0 H Absolute Nucleated RBC 0.000 Nucleated RBC % 0.0 Sodium 136 L Potassium 3.1 L Chloride 101 Carbon Dioxide 23 Anion Gap 12 BUN 13 Creatinine 0.52 L Estim Creat Clear Calc 89 Estimated GFR > 60 Glucose 148 H Lactic Acid 1.2 Calcium 8.4 Magnesium 1.7 Total Bilirubin 1.3 AST 20 ALT 16 Alkaline Phosphatase 84 Total Protein 7.0 Albumin 3.7
[2024-10-16] MEDS: ACETAMINOPHEN 325 MG TABLET 650 MG PO (18:05)
[2024-10-16] MEDS: MORPHINE SULFATE (*CRX) 4 MG/ML INJ IV PUSH (20:16)
--- OUTSIDE RECORDS SUMMARY | 2024-10-16 22:12 | XMS_ITS | Referral Summary ---
Author Organization [facility] Address [address] [place] [address] Care Team Providers Care Rfp Writer Name Role Phone Richardson Correa Primary Care Provider + Richardson Correa Unavailable [phone] Aris Meyer MD Unavailable Ghanshyam Calixto DO Unavailable [phone] Domingo Bearden MD Unavailable [phone] Ebony Masters MD Unavailable [phone] Allergies No known active allergies Medications diclofenac sodium (VOLTAREN) 1 % gel diclofenac 1 % topical gel APPLY 2 GRAM TO THE AFFECTED AREA(S) BY TOPICAL ROUTE 4 TIMES PER DAY Active potassium chloride ER (KLOR-CON) 10 mEq CR tablet potassium chloride ER 10 mEq tablet,extended release TAKE 1 TABLET BY MOUTH EVERY MORNING Active pravastatin (PRAVACHOL) 40 mg tablet pravastatin 40 mg tablet Active aspirin 81 mg enteric coated tablet Take 1 tablet (81 mg total) by mouth daily Active ascorbic acid/vitamin E/biotin (HAIR, SKIN, NAILS WITH BIOTIN ORAL) Take by mouth Active cholecalciferol (VITAMIN D-3) 2000 unit capsule Take by mouth 0 Active ezetimibe (ZETIA) 10 mg tablet 1 Active cyanocobalamin (Vitamin B-12) 2,500 mcg tablet, sublingualIndic ations:Preventi on of Vitamin B12 Deficiency Activ e calcium carbonate-vitam in D3 1,250 mg (500 mg elemental)-400 unit chewable tablet Take 1 tablet by mouth daily Active metoprolol XL (TOPROL-XL) 50 mg extended release tablet Take by mouth 2 Active anastrozole (ARIMIDEX) 1 mg tablet TAKE 1 TABLET(1 MG) BY MOUTH DAILY 90 tablet 3 Active amLODIPine (NORVASC) 5 mg tablet TAKE 2 TABLETS BY MOUTH EVERY DAY IN THE MORNING 3 Active losartan-hydroC HLOROthiazide (HYZAAR) 50-12.5 mg per tablet Take 1 tablet by mouth daily 2 Active metoclopramide (REGLAN) 10 mg tablet Take by mouth Active tamsulosin (FLOMAX) 0.4 mg extended release capsule Take 1 tablet by mouth daily Active Active Problems Problem Noted Date Diagnosed Date Personal history of radiation therapy 12/26/2021 Malignant neoplasm of upper- outer quadrant of left breast in female, estrogen receptor positive 08/31/2021 Cancer Staging:Clinical stage from 05/26/2021:Stage IB(cT2, cN0, cM0, G2, ER+, IL+, HER2-) - Signed by Ebony Masters MD on 08/31/2021 Pathologic stage from 09/26/2021:Stage IA(pT1b, pN0(sn), cM0, G2, ER+, IL+, HER2-) - Signed by Ebony Masters MD on 10/12/2021 Malignant neoplasm of upper- outer quadrant of left breast in female, estrogen receptor positive 08/10/2021 Immunizations Name Administration Dates Next Due Moderna SARS-CoV-2 Monovalen t Vaccination (12+ YRS) 07/18/2021,12/27/2020,11/30/2020 Pneumococcal Conjugate PCV 13 08/12/2021 Social History Tobacco Use Types Packs/Day Years Used Date Smoking Tobacco: Never Smokeless Tobacco: Never Tobacco Cessation:Counseling Given: Not Answered AUDIT-C Answer Date Recorded Q1: How often do you have a drink containing alc ohol? 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 Not on file Not on file Not on file Last Filed Vital Signs Vital Sign Reading Time Taken Comments Blood Pressure 148/85 06/14/2023 11:03 AM CDT Pulse 94 06/14/2023 11:03 AM CDT Temperature 36.6 ??C (97.9 ??F) 06/14/2023 11:03 AM C DT Respiratory Rate 18 06/14/2023 11:03 AM CDT Oxygen Saturation 96% 06/14/2023 11:03 AM CDT Inhaled Oxygen Concentration - - Weight 88.9 kg (196 lb) 06/14/2023 11:03 AM CDT with shoes Height 154.9 cm (5' 1) 06/14/2023 11:03 AM CDT Body Mass Index 37.03 06/14/2023 11:03 AM CDT Plan of Treatment Not on file Insurance MEDICARE SOLUTIONS MEDICARE SOLUTIONS Care Teams Rfp Writer Relationship Specialty [place] [address] [place] [address] [id number] PCP - General Internal Medicine 08/31/21 Richardson Correa PA [address] [place] [address] [phone] Internal Medicine 08/31/21 Aris Meyer MD [address] [place] [address] Consulting Physician Cardiology 08/31/21 Ghanshyam Calixto DO [address] [address] Medical Oncologist/It Help Desk Technician Hematology and Oncology 08/31/21 Domingo Bearden MD [address] [facility] [address] [place] [address] Surgeon General Surgery 08/31/21 Ebony Masters MD [address] [facility] [address] [place] [address] Radiation Oncologist Radiation Oncology 05/14/24
--- OUTSIDE RECORDS SUMMARY | 2024-10-16 22:12 | XMS_ITS | Clinical Summary ---
Author Organization [facility] Address [address] [place] [address] Care Team Providers Care Information Delivery Analyst Name Role Phone Richardson Correa Primary Care Provider + Richardson Correa Unavailable [phone] Aris Meyer MD Unavailable Ghanshyam Calixto DO Unavailable [phone] Domingo Bearden MD Unavailable [phone] Ebony Masters MD Unavailable [phone] Allergies No known active allergies Medications diclofenac [...] from 05/26/2021:Stage IB(cT2, cN0, cM0, G2, ER+, [place]+, HER2-) - Signed by Ebony Masters MD on 08/31/2021 Pathologic stage from 09/26/2021:Stage IA(pT1b, pN0(sn), cM0, G2, ER+, [place]+, HER2-) - Signed by Ebony Masters MD on 10/12/2021 Malignant neoplasm of upper- outer quadrant of left breast in female, estrogen receptor positive 08/10/2021 Immunizations Name Administration Dates Next Due Moderna SARS-CoV-2 Monovalen t Vaccination (12+ YRS) 07/18/2021,12/27/2020,11/30/2020 Pneumococcal Conjugate PCV 13 08/12/2021 Surgical History Surgery Date Site/Laterality Comments HYSTERECTOMY [place] LIG/TRNSXJ FLP TUBE ABDL/VAG APPR UNI/BI Tubal Ligation - (Added by TW Conv) [place] SALPINGO-OOPHORECTOMY COMPL/PRTL UNI/BI SPX Salpingo-oophorectomy Left Side - (Added by TW Conv) [place] COLPOPEXY ABDOMINAL APPROACH Vaginal Surgery Colpopexy Abdominal Approach - (Added by TW Conv) HYSTERECTOMY 09/24/1987 - 09/23/1988 BREAST LUMPECTOMY Left Medical History Medical History Date Comments Hypertension Hyperlipidemia 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 - (Added by THOM Conv) Essential (primary) hypertension Benign essential hypertension - (Added by THOM Conv) Breast cancer (HCC) Family History Medical History Relation Name Comments Kidney cancer Brother Leukemia Father Cervical cancer Maternal Grandmother Kidney cancer Mother Lung cancer Sister 2 Relation Name Status Comments Brother Other Father Maternal Grandmother Mother Sister 1 Other lung cancer Sister 2 Alive Social History Tobacco Use Types Packs/Day Years [...] on file 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 Gender Identity Not on file Sexual Orientation Not on file 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 Not on file Not on file Not on file Obstetrics History Last Filed Vital Signs Vital Sign Reading [...] 06/14/2023 11:03 AM CDT Plan of Treatment Health Maintenance Due Date Last Done Comments Colon Cancer Screening-Colonoscopy 1955 Depression Screening 1955 Fall Risk Assessment 1955 Hepatitis C Screening 1955 Osteoporosis Screening-Bone Density Scan 1955 Hepatitis B Screening 12/30/1973 Zoster Vaccine (1 of 2) 12/30/1974 Well Visit 65+ 12/30/2020 Pneumococcal vaccine 65+ (2 of 2 - PPSV23 or PCV20) 10/07/2021 08/12/2021 Covid-19 Vaccine (5 - 2023-2 5 season) 2024 06/05/2022, 06/05/2022, 07/18/2021, Additional history exists Influenza Vaccine (#1) 2024 , 07/05/2021, 07/12/2020, Additional history exists Breast Cancer Screening-Mammogram 06/05/2024 023 DTaP/Tdap/Td Vaccine (2 - Td or Tdap) 02/02/2026 02/03/2016 Insurance [employer] [place] [id number] [employer] [place] [id number] Care Teams Information Delivery Analyst Relationship Specialty [place] [address] [place] [id number] PCP - General Internal Medicine 08/31/21 [place] [address] [place] [id number] Internal Medicine 08/31/21 Aris Meyer MD [address] [place] [address] Consulting Physician Cardiology 08/31/21 Ghanshyam Calixto DO [address] [place] [address] [id number] Medical Oncologist/Chicken Cleaner Hematology and Oncology 08/31/21 Domingo Bearden MD [address] [place] [address] [address] [place] [address] Surgeon General Surgery 08/31/21 Ebony Masters MD [facility] [address] [place] [address] Radiation Oncologist Radiation Oncology 05/14/24
--- OUTSIDE RECORDS SUMMARY | 2024-10-16 22:12 | XMS_ITS | Clinical Summary ---
Author Organization [facility] Address [facility] [place] [address] [place] [address] Care Team Providers Care Branch Rental Manager Name Role Phone Richardson Correa Primary Care Provider + Aris Meyer MD Unavailable Allergies No known active allergies Medications biotin 300 MCG Tab Take 1 tablet by mouth daily. Active Cholecalciferol (VITAMIN D3) 50 MCG (1999) Tab Take 1 tablet by mouth daily. Active vitamin B-12 250 MCG Tab Take 250 mcg by mouth daily. Active pravastatin 40 MG tablet Take 40 mg by mouth nightly at bedtime. Active potassium chloride CR 10 MEQ tablet Take 10 mEq by mouth 2 (two) times daily. Active losartan 50 MG TABS 50 mg, hydroCHLOROthiazide 12.5 MG CAPS 12.5 mg Take 1 tablet by mouth every evening. Active calcium-vitamin D 250-125 MG-UNIT tablet Take 1 tablet by mouth daily. Active aspirin EC (ASPIRIN EC) 81 MG tablet Take 81 mg by mouth daily. Active losartan-hydroCHLOROthi azide 100-25 MG tablet Take 1 tablet by mouth daily. Active ezetimibe 10 MG tablet Take 10 mg by mouth every evening. Active traMADol 50 MG tabletIndications:Acute Pain < 7 Day Supply Take 1 tablet (50 mg total) by mouth every 6 (six) hours as needed for Pain. Indications : Acute Pain < 7 Day Supply 20 tablet 09/26/19 22 Active Family History Medical History Relation Comments Cancer Father Heart Disease Father Hypertension Father Heart Disease Mother Hypertension Mother Covid Sister 1 Cancer Sister 2 Lung Cancer Sister 2 Breast Cancer Sister 3 Cancer Sister 3 Relation Status Comments Brother 1 Brother 2 Brother 3 Brother 4 Alive Brother 5 Alive Brother 6 Alive Brother 7 Alive Father Mother Sister 1 Sister 2 Sister 3 Alive Sister 4 Alive Social History Tobacco Use Types Packs/Day Years Used Date Smoking Tobacco: Never Smokeless Tobacco: Never Alcohol Use Standard Drinks/Week Comments Not Currently 0 (1 standard drink = 0.6 oz pur e alcohol) Comments No Sex and Gender Information Value Date Recorded Sex Assigned at Not on file Legal Sex Female 6:06 PM CDT Gender Identity Not on file Sexual Orientation Not on file Last Filed Vital Signs Vital Sign Reading Time Taken Comments Blood Pressure 167/88 09/26/2021 4:12 PM PRINCIPAL SECRETARY Pulse 99 09/26/2021 4:12 PM PRINCIPAL SECRETARY Temperature 37 ??C (98.6 ??F) 09/26/2021 4:12 PM PRINCIPAL SECRETARY Respiratory Rate 20 09/26/2021 4:12 PM PRINCIPAL SECRETARY Oxygen Saturation 93% 09/26/2021 4:12 PM PRINCIPAL SECRETARY Inhaled Oxygen Concentration - - Weight 88.4 kg (194 lb 14.2 oz) 022 11:00 AM PRINCIPAL SECRETARY Height 154.9 cm (5' 1) 09/26/2021 11:0 0 AM PRINCIPAL SECRETARY Body Mass Index 36.82 09/26/2021 11:00 AM PRINCIPAL SECRETARY Plan of Treatment Health Maintenance Due Date Last Done Comments Colorectal Cancer Screening Colonoscopy (10 Years) 1955 Hepatitis C 12/30/1973 Mammogram Screening 1995 Zoster Vaccines (1 of 2) 12/30/2005 Annual Medicare Wellness Visit 12/30/2020 Dexa Scan (General) 12/30/2020 Pneumococcal Vaccine: 65+ Years (2 of 2 - PPSV23 or PCV20) 08/12/2022 08/12/2021 COVID-19 Vaccine ( - season) 2024 06/05/2022, 07/18/2021, 12/27/2020, Additional history exists Influenza Adult (#1) 2024 07/12/2020, 06/26/2019, 07/27/2015 DTaP, Tdap and Td Vaccines (2 - Td or Tdap) 02/02/2026 02/03/2016 RSV Immunization or 60+ Years (1 - 1-dose 75+ series) 12/30/2030 Meningococcal Vaccine Aged Out No [place] ivone eligible based on patient's age to complete this topic RSV Immunizations Under 20 Months Aged Out No longer eligible based on patient's age to complete this topic Insurance [facility] [place] [address] Care Teams Branch Rental Manager Relationship Specialty Start Date End Date Richardson Correa PA PCP - General PHYSICIAN METER READERS SUPERVISOR 09/13/21 [place] [address] [place] [address] CARDIOVASCULAR DISEASE 09/13/21
--- OUTSIDE RECORDS SUMMARY | 2024-10-16 22:12 | XMS_ITS ---
Author Organization [facility] Address [address] [place] [address] Care Team Providers Care Alpine Guide Name Role Phone Richardson Correa Primary Care Provider + Richardson Correa Unavailable [phone] Aris Meyer MD Unavailable Ghanshyam Calixto DO Unavailable [phone] Domingo Bearden MD Unavailable [phone] Ebony Masters MD Unavailable [phone] Active Problems Problem Noted Date Diagnosed Date Personal history of radiation therapy 12/26/2021 Malignant neoplasm of upper- outer quadrant of left breast in female, estrogen receptor positive 08/31/2021 Cancer Staging:Clinical stage from 05/26/2021:Stage IB(cT2, cN0, cM0, G2, ER+, [place]+, HER2-) - Signed by Ebony Masters MD on 08/31/2021 Pathologic stage from 09/26/2021:Stage IA(pT1b, pN0(sn), cM0, G2, ER+, [place]+, HER2-) - Signed by Ebony Masters MD on 10/12/2021 Malignant neoplasm of upper- outer quadrant of left breast in female, estrogen receptor positive 08/10/2021 Current Oncology Plans No current plan information found. Past Plans No past plan information found. Radiation Treatments * Plan Last Treated On Days Fractions Treated Prescribed Fraction Dose Prescribed Total Dose PRNE_LT BRST 11/15/2021 26 15 267 cGy 4,005 cGy Reference Point Last Treated On Elapsed Days Session Dose Total Dose PRNE LT BREAST 11/15/2021 26 267 cGy 4,005 cGy
--- OUTSIDE RECORDS SUMMARY | 2024-10-16 22:12 | XMS_ITS | Data Portability ---
Author Organization [facility] [place] Dom[place] Address [address] [facility] [place] [address] Care Team Providers Care Rides Supervisor Name Role Phone EMPERATRIZ MEYER Primary Care Provider [phone] Assessment No assessment recorded. Plan of Treatment Reminders Order Date Submit Date Provider Last Modified By Organization Details Last Modified Time Details Appointments ANY 15 2024 09:00A M Emperatriz Meyer MD Not available Not available Not available Lab rf (rheumato id factor), serum 2022 023 [facility], [address] [place], [place] [address], [address], [place], [address], 01/11/2023 09:16:24 C reactive protein, QN, serum or plasma 2022 023 [facility], [address] [facility], [address], [place], [address], 01/11/2023 09:16:25 erythrocy te sedimenta tion rate by westergre n method 2022 023 [facility], [address] [facility] [address], [address], [place], [address], 01/11/2023 09:16:23 CBC 2022 023 [facility], [address] [facility], [address], [place], [address], 01/10/2023 03:39:55 lipid panel, serum 2022 023 [facility], [address], [address], [place], [address], 01/10/2023 03:39:56 vitamin D, 25-hydrox y, total, serum 2022 023 [facility], [address], [address], [place], [address], 01/11/2023 09:16:26 noninvasi ve colorecta l cancer DNA + occult blood screening , QL, stool 2022 023 [facility], [address], [address], [place], [address], 01/08/2023 11:03:49 CMP, serum or plasma 2022 023 [facility], [address] [facility], [address], [place], [address], 01/10/2023 03:39:56 noninvasi ve colorecta l cancer DNA + occult blood screening , QL, stool 2022 023 [facility]), [address], [address], [place], [address], 05/31/2023 03:58:30 vitamin D, 25-hydrox y, total, serum 2022 023 [facility], [address] [facility] [address], [address], [place], [address], 07/17/2023 08:26:35 CMP, serum or plasma 2022 023 [facility], [address], [address], [place], [address], 07/17/2023 06:15:55 lipid panel, serum 2022 023 [facility], [address], [address], [place], [address], 07/17/2023 06:15:54 CBC 2022 023 [facility], [address], [address], [place], [address], 07/17/2023 06:15:56 TSH, ultra-sen sitive, serum 2022 023 [facility], [address], [address], [place], [address], 07/17/2023 08:26:34 HbA1c (hemoglob in A1c), blood 2023 024 [facility], [address], [address], [place], [address], 07/08/2024 08:29:59 vitamin D, 25-hydrox y, total, serum 2023 024 [facility], [address], [address], [place], [address], 07/08/2024 08:30:00 CMP, serum or plasma 2023 024 [facility], [address], [address], [place], [address], 07/08/2024 08:29:58 lipid panel, serum 2023 024 [facility], [address], [address], [place], [address], 07/08/2024 08:29:56 Referral dermatolo gist referral 2023 024 [email or web address] Kirk Hardy MD ([facility], Dermatology), [address] [place], [address], 03/30/2024 01:42:29 Procedures None recorded. Surgeries None recorded. Imaging XR, wrist + hand 2022 023 [facility] ([facility]), [address] [place], [address], 01/11/2023 02:52:41 MAMMO, screening , bilateral 2022 023 [facility] ([facility] Sched[facility]), [address] [place], [address], 06/05/2023 14:58:34 MAMMO, screening , digital, bilateral - Hx papillary carcinoma left breast 2020 024 [facility] ([facility]) , [address], [place], [address], 09/19/2024 16:13:32 Medication Orders ibuprofen 600 mg tablet 2022 023 [facility] #[id number], [address] [place], [place], [id number], 01/09/2024 09:52:03 losartan 50 mg-hydroc hlorothia zide 12.5 mg tablet 2022 023 [facility], [address] [place], [place], [id number], 01/09/2024 09:52:10 amlodipin e 5 mg tablet 2022 023 [facility], [address] [place], [place], [id number], 05/10/2023 10:36:53 losartan 100 mg-hydroc hlorothia zide 12.5 mg tablet 2022 [address] [place] [facility], [address] [place], [place], [id number], 07/10/2023 10:38:22 losartan 100 mg-hydroc hlorothia zide 12.5 mg tablet 2023 [facility] #30106, [address] [place], [place], [id number], 07/07/2024 10:38:53 metoprolo l succinate ER 50 mg tablet,ex tended release 24 hr 2023 [facility] #86615, [address] [place], [place], [id number], 07/07/2024 10:38:53 amlodipin e 5 mg tablet 2023 [facility] #84752, [address] [place], [place], [id number], 07/07/2024 10:38:53 pravastat in 40 mg tablet 2023 [facility] [facility] #40551, [address] [place], [place], [id number], 07/07/2024 10:40:07 ezetimibe 10 mg tablet 2023 [facility] [facility] #17692, [address] [place], [place], [id number], 07/07/2024 10:38:52 potassium chloride ER 10 mEq tablet,ex tended release 2023 [facility] [facility] #25211, [address] [place], [place], [id number], 07/07/2024 10:38:53 Patient TargetsNo targets recorded. Patient Instructions Encounter Date Encounter Id Patient Instructions Last Modified By Organization Details Last Modified Time 01/08/2023 [id number] When You Want to Lose Weight: Care Instructions [email or web address] Not available 01/08/2023 11:03:30 A healthy lifestyle: care instructions [email or web address] Not available 01/08/2023 11:03:30 high cholesterol : care instructions [email or web address] Not available 01/08/2023 11:03:29 learning about high blood pressure [email or web address] Not available 01/08/2023 11:03:30 05/10/2023 [id number] When You Want to Lose Weight: Care Instructions [email or web address] Not available 05/10/2023 10:36:42 A healthy lifestyle: care instructions Not available 05/10/2023 10:36:41 learning about breast cancer screening [email or web address] Not available 05/10/2023 10:36:42 07/10/2023 [id number] back care and preventing injuries: care instructions [email or web address] Not available 07/10/2023 10:37:54 When You Want to Lose Weight: Care Instructions Not available 07/10/2023 10:37:54 A healthy lifestyle: care instructions [email or web address] Not available 07/10/2023 10:37:53 learning about high blood pressure [email or web address] Not available 07/10/2023 10:37:54 high cholesterol : care instructions [email or web address] Not available 07/10/2023 10:37:53 hypokalemia: car e instructions [email or web address] Not available 07/10/2023 10:37:54 01/09/2024 [id number] back care and preventing injuries: care instructions [email or web address] Not available 01/09/2024 10:35:11 When You Want to Lose Weight: Care Instructions [email or web address] Not available 01/09/2024 10:35:11 high cholesterol : care instructions [email or web address] Not available 01/09/2024 10:35:11 A healthy lifestyle: care instructions [email or web address] Not available 01/09/2024 10:35:11 learning about high blood pressure [email or web address] Not available 01/09/2024 10:35:11 hypokalemia: car e instructions [email or web address] Not available 01/09/2024 10:35:11 07/07/2024 [id number] learning about breast cancer screening [email or web address] Not available 07/07/2024 10:33:31 When You Want to Lose Weight: Care Instructions [email or web address] Not available 07/07/2024 10:33:31 A healthy lifestyle: care instructions [email or web address] Not available 07/07/2024 10:33:31 learning about high blood pressure [email or web address] Not available 07/07/2024 10:33:31 high cholesterol : care instructions [email or web address] Not available 07/07/2024 10:33:31 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 [address] [place], [address], 01/09/2023 19:09:16 01/10/2001/09/2023 LIPID PANEL HDL cholesterol 41.1 mg/dL 40.0-1 00.0 Not Available [facility] [address] [place], [address], 01/09/2023 19:09:16 01/10/2001/09/2023 LIPID PANEL VLDL cholesterol [place] 24.00 mg/dL 5.00-4 0.00 Not Available [facility] [address] [place], [address], 01/09/2023 19:09:16 01/10/20 23 01/09/2023 LIPID PANEL LDL chol calc (nih) 67.9 Not Available [facility] Department [address] [place], [address], 01/09/2023 19:09:16 01/10/20 23 01/09/2023 COMP. METAB OLIC PANEL (14) glucose 98 mg/dL 65-99 ANION GP 20.0 mmol/ L N OSMOL 286.0 mOsM/ L N REFER ENCE RANGE : 275.0 -301. 0 Not Available [facility] [address] [place], [address], 01/09/2023 19:09:16 01/10/20 23 01/09/2023 COMP. METAB OLIC PANEL (14) BUN 15 mg/dL 8-26 Not Available [facility] [address] [place], [address], 01/09/2023 19:09:16 01/10/20 23 01/09/2023 COMP. METAB OLIC PANEL (14) creatinine 0.59 mg/dL 0.50-1 .40 Not Available [facility] [address] [place], [address], 01/09/2023 19:09:16 01/10/20 23 01/09/2023 COMP. METAB OLIC PANEL (14) eGFR 99 mL/mi n/1.7 3 >=60 Not Available [facility] [address] [place], [address], 01/09/2023 19:09:16 01/10/20 23 01/09/2023 COMP. METAB OLIC PANEL (14) BUN/creatini ne ratio 25.[address] [facility] [address] [place], [address], 01/09/2023 19:09:16 01/10/20 23 01/09/2023 COMP. METAB OLIC PANEL (14) sodium 143.0 mmol/ L 136.0- 144.0 Not Available [facility] [address] [place], [address], 01/09/2023 19:09:16 01/10/20 23 01/09/2023 COMP. METAB OLIC PANEL (14) potassium 3.8 mmol/ L 3.5-5. 3 Not Available [facility] [address] [place], [address], 01/09/2023 19:09:16 01/10/20 23 01/09/2023 COMP. METAB OLIC PANEL (14) chloride 102 mmol/ l 101-11 1 Not Available [facility] [address] [place], [address], 01/09/2023 19:09:16 01/10/20 23 01/09/2023 COMP. METAB OLIC PANEL (14) carbon dioxide, total 24.3 mmol/ L 21.0-3 2.0 Not Available [facility] [address] [place], [address], 01/09/2023 19:09:16 01/10/20 23 01/09/2023 COMP. METAB OLIC PANEL (14) calcium 10.2 mg/dL 8.2-10 .0 above high normal Not Available [facility] [address] [place], [address], 01/09/2023 19:09:16 01/10/20 23 01/09/2023 COMP. METAB OLIC PANEL (14) protein, total 6.8 g/dL 6.7-8. 2 Not Available [facility] [address] [place], [address], 01/09/2023 19:09:16 01/10/20 23 01/09/2023 COMP. METAB OLIC PANEL (14) albumin 4.5 g/dL 3.5-5. 5 Not Available [facility] [address] [place], [address], 01/09/2023 19:09:16 01/10/20 23 01/09/2023 COMP. METAB OLIC PANEL (14) globulin, total 2.3 g/dL 1.5-4. 5 Not Available [facility] [address] [place], [address], 01/09/2023 19:09:16 01/10/20 23 01/09/2023 COMP. METAB OLIC PANEL (14) A/G ratio 2.0 Not Available [facility] Department [address] [place], [address], 01/09/2023 19:09:16 01/10/20 23 01/09/2023 COMP. METAB OLIC PANEL (14) bilirubin, total 1.0 mg/dL 0.0-1. 2 Not Available [facility] [address] [place], [address], 01/09/2023 19:09:16 01/10/20 23 01/09/2023 COMP. METAB OLIC PANEL (14) alkaline phosphatase 133.4 IU/L 42.0-1 21.0 above high normal Not Available [facility] [address] [place], [address], 01/09/2023 19:09:16 01/10/20 23 01/09/2023 COMP. METAB OLIC PANEL (14) AST (SGOT) 22.3 U/L 10.0-4 2.0 Not Available [facility] [address] [place], [address], 01/09/2023 19:09:16 01/10/20 23 01/09/2023 COMP. METAB OLIC PANEL (14) ALT (SGPT) 27.5 U/L 10.0-6 0.0 Not Available [facility] [address] [place], [address], 01/09/2023 19:09:16 01/10/20 23 01/09/2023 CBC, PLATE LET, NO DIFFE RENTI AL WBC 7.7 K/uL 3.4-10 .8 Not Available [facility] [address] [place], [address], 01/09/2023 19:09:17 01/10/20 23 01/09/2023 CBC, PLATE LET, NO DIFFE RENTI AL RBC 4.7 M/uL 4.2-5. 4 Not Available [facility] [address] [place], [address], 01/09/2023 19:09:17 01/10/2001/09/2023 CBC, PLATE LET, NO DIFFE RENTI AL hemoglobin 13.7 g/dL 11.5-1 5.5 Not Available [facility] [address] [place], [address], 01/09/2023 19:09:17 01/10/2001/09/2023 CBC, PLATE LET, NO DIFFE RENTI AL hematocrit 41.6 % 36.0-4 8.0 Not Available [facility] [address] [place], [address], 01/09/2023 19:09:17 01/10/20 23 01/09/2023 CBC, PLATE LET, NO DIFFE RENTI AL MCV 89 fL 80-95 Not Available [facility] [address] [place], [address], 01/09/2023 19:09:17 01/10/20 23 01/09/2023 CBC, PLATE LET, NO DIFFE RENTI AL MCH 29 pg 27-32 Not Available [facility] [address] [place], [address], 01/09/2023 19:09:17 01/10/2001/09/2023 CBC, PLATE LET, NO DIFFE RENTI AL MCHC 33 g/dL 32-36 Not Available [facility] [address] [place], [address], 01/09/2023 19:09:17 01/10/20 23 01/09/2023 CBC, PLATE LET, NO DIFFE RENTI AL RDW 12.1 % 11.5-1 4.5 Not Available [facility] [address] [place], [address], 01/09/2023 19:09:17 01/10/20 23 01/09/2023 CBC, PLATE LET, NO DIFFE RENTI AL platelets 173 K/uL 155-37 9 MPV 10.5 FL 8.9-1 2.7 N Not Available [facility] [address] [place], [address], 01/09/2023 19:09:17 01/10/20 23 01/09/2023 CBC, PLATE LET, NO DIFFE RENTI AL NRBC 0 % Not Available [facility] [address] [facility], [place], [address], 01/09/2023 19:09:17 01/10/20 23 01/11/2023 SEDIM ENTAT ION RATE- WESTE RGREN sedimentatio n rate-westerg jumana 12 mm/HR 0-40 Not Available [facility] ([facility]) [address] [place], [address], 01/11/2023 09:16:23 01/10/20 23 01/10/2023 RHEUM ATOID FACTO R (RF) rheumatoid factor (rf) <10.0 IU/mL <14.0 Not Available [facility] ([facility]) [address] [place], [address], 01/11/2023 09:16:24 01/10/2001/10/2023 C-ESTEFANI CTIVE PROTE IN, QUANT C-reactive protein, quant 6 mg/L 0-10 Not Available [facility] ([facility]) [address] [place], [address], 01/11/2023 09:16:25 01/10/20 23 01/10/2023 VITAM IN D, 25-HY DROXY vitamin D, 25-hydroxy 45.4 NG/mL 30.0-1 00.0 Vitam in D defic iency has been defin ed by the Insti tute of Medic ine and an Endoc rine Socie ty pract ice guide line as a level of serum 25-OH vitam in D less than 20 ng/mL (1,2) . The Endoc rine Socie ty went on to fur er defin e vitam in D insuf ficie ncy as a level betwe en 21 and 29 ng/mL (2). 1. IOM (Inst itute of Medic ine). 2009. Dieta ry refer ence intak es for calci um and D. Florencio sahu DC: The Natio nal [facility] Press . 2. Arielle sharif MF, Olga pena [place], Fletcher off-F caroline i DUMONT, et al. Evalu ation , treat ment, and preve ntion of vitam in D defic iency : an Endoc rine Socie ty clini [place] pract ice guide line. JCEM. 2010; 96(7) :1911 -30. Not Available [facility] ([facility]) [address] [facility], [place], [address], 01/11/2023 09:16:26 01/11/20 23 01/11/2023 OCCUL T BLOOD , FECAL , IA occult blood, fecal, ia Negati ve negati ve Not Available [facility] ([facility]) [address] [facility], [place], [address], 01/11/2023 15:10:31 05/22/20 23 05/22/2023 COLOG UARD cologuard result reportable Positi ve negati ve abnormal POSIT REDD TEST RESUL T. A posit redd Colog uard resul t shoul d be follo wed with a colon oscop y or visua l exami natio n of the colon . The rocco l value (refe rence range ) for this assay is negat redd. TEST DESCR IPTIO N: [place] site algor ithmi c julio sis of stool DNA-b iomar kers with hemog lobin immun oassa y. Quant itati ve value s of indiv idual bioma rkers are not repor table and are not assoc iated with indiv idual bioma rker resul t refer ence range s. Colog uard is inten ded for color ectal cance r scree ana of adult s of eithe r sex, 45 years or older , who are at [facility] for color ectal cance r (CRC) . Colog uard has been appro yao for use by the U.[place]. FDA. The perfo rmanc e of Colog uard was estab lishe d in a cross secti onal study of [facility] adult s aged 50-84 . Colog uard perfo rmanc e in patie nts ages 45 to 49 years was estim ated by sub-g rosemariep julio sis of near- age group s. Colon oscop ies perfo rmed for a posit redd resul t may find as the most clini kelli signi fican t lesio n: color ectal cance r [4.0% ], advan bony adeno ma (incl uding sessi le vivian obinna polyp s great er than or equal to 1cm diame ter) [20%] or non- advan bony adeno ma [31%] ; or no color ectal neopl mathew [45%] . These estim ates are deriv ed from a prosp ectiv e cross -sect ional scree ana study of 10,00 0 indiv idual s at [facility] risk for color ectal cance r who were scree russell with both Colog uard and colon oscop y. (Kole Rice et al, N Engl J Med 2014; 370(1 4):12 86-12 97.) Colog uard may produ ce a false negat redd or false posit redd resul t (no color ectal cance r or preca ncero us polyp prese nt at colon oscop y follo w up). A negat redd Colog uard test resul t does not guara ntee the absen ce of CRC or advan bony adeno ma (pre- cance r). The curre nt Colog uard scree ana inter rudolph is every 3 years . (Amer ican Cance r Socie ty and U.S. Multi -Soci ety Task Force ). Colog uard perfo rmanc e data in a 10,00 0 patie nt pivot al study using colon oscop y as the refer ence metho d can be acces sed at the follo wing locat ion: www.e xactl abs.c om/re jaylyn . Addit ional descr iptio n of the Colog uard test proce ss, warni ngs and preca ution s can be found at www.c domingo robetr.c om. Not Available [facility] (Cologuard Orders Only) [address], [place], [address], 05/31/2023 03:58:30 07/16/2007/16/2023 LIPID PANEL cholesterol, total 128 mg/dL 100-19 9 Not Available [facility] [address] [place], [address], 07/17/2023 06:15:54 07/16/2007/16/2023 LIPID PANEL triglyceride s 123 mg/dL 0-[address] [facility] [address] [place], [address], 07/17/2023 06:15:54 07/16/2007/16/2023 LIPID PANEL HDL cholesterol 42 mg/dL 40-999 Not Available [facility] [address] [place], [address], 07/17/2023 06:15:54 07/16/2007/16/2023 LIPID PANEL VLDL cholesterol carol[place] 25 mg/dL 5-[address] [facility] [address] [place], [address], 07/17/2023 06:15:54 07/16/2007/16/2023 LIPID PANEL LDL chol calc ([facility]) 79 mg/dL 0-99 Not Available [facility] [address] [place], [address], 07/17/2023 06:15:54 07/16/2007/16/2023 COMP. METAB OLIC PANEL (14) glucose 94 mg/dL 70-99 Not Available [facility] [address] [place], [address], 07/17/2023 06:15:55 07/16/2007/16/2023 COMP. METAB OLIC PANEL (14) BUN 18 mg/dL 8-27 Not Available [facility] [address] [place], [address], 07/17/2023 06:15:55 07/16/2007/16/2023 COMP. METAB OLIC PANEL (14) creatinine 0.52 mg/dL 0.76-1 .27 below low normal Not Available [facility] [address] [place], [address], 07/17/2023 06:15:55 07/16/2007/16/2023 COMP. METAB OLIC PANEL (14) eGFR 102 >=60 Units for eGFR value s are mL/mi n/1.7 3 The eGFR Calcu latio n has not been valid ated for patie nts under the age of 18. If test resul ts are displ ayed for a patie nt under the age of 18, disre liborio that value . Not Available [facility] [address] [place], [address], 07/17/2023 06:15:55 07/16/2007/16/2023 COMP. METAB OLIC PANEL (14) BUN/creatini ne ratio 35 10-28 above high normal Not Available [facility] [address] [place], [address], 07/17/2023 06:15:55 07/16/2007/16/2023 COMP. METAB OLIC PANEL (14) sodium 143 mmol/ L 134-14 4 Not Available [facility] [address] [place], [address], 07/17/2023 06:15:55 07/16/2007/16/2023 COMP. METAB OLIC PANEL (14) potassium 3.3 mmol/ L 3.5-5. 2 below low normal Not Available [facility] [address] [place] [address], [address], 07/17/2023 06:15:55 07/16/2007/16/2023 COMP. METAB OLIC PANEL (14) chloride 101 mmol/ L 96-106 Not Available [facility] [address] [place] [address], [address], 07/17/2023 06:15:55 07/16/2007/16/2023 COMP. METAB OLIC PANEL (14) carbon dioxide, total 27 mmol/ L 20-29 Not Available [facility] [address] [place] [address], [address], 07/17/2023 06:15:55 07/16/2007/16/2023 COMP. METAB OLIC PANEL (14) calcium 9.2 mg/dL 8.7-10 .3 Not Available [facility] [address] [place] [address], [address], 07/17/2023 06:15:55 07/16/2007/16/2023 COMP. METAB OLIC PANEL (14) protein, total 6.7 g/dL 6.0-8. 5 Not Available [facility] [address] [place] [address], [address], 07/17/2023 06:15:55 07/16/2007/16/2023 COMP. METAB OLIC PANEL (14) albumin 4.3 g/dL 3.8-4. 8 Not Available [facility] [address] [place] [address], [address], 07/17/2023 06:15:55 07/16/2007/16/2023 COMP. METAB OLIC PANEL (14) globulin, total 2.4 g/dL 1.5-4. 5 Not Available [facility] [address] [place], [address], 07/17/2023 06:15:55 07/16/2007/16/2023 COMP. METAB OLIC PANEL (14) A/G ratio 1.8 1.2-2. 2 Not Available [facility] [address] [place], [address], 07/17/2023 06:15:55 07/16/2007/16/2023 COMP. METAB OLIC PANEL (14) bilirubin, total 0.8 mg/dL 0.0-1. 2 Not Available [facility] [address] [place], [address], 07/17/2023 06:15:55 07/16/2007/16/2023 COMP. METAB OLIC PANEL (14) alkaline phosphatase 129 IU/L 44-121 above high normal Not Available [facility] [address] [place], [address], 07/17/2023 06:15:55 07/16/2007/16/2023 COMP. METAB OLIC PANEL (14) AST (SGOT) 21 IU/L 0-40 Not Available [facility] [address] [place] [address], [address], 07/17/2023 06:15:55 07/16/2007/16/2023 COMP. METAB OLIC PANEL (14) ALT (SGPT) 29 IU/L 0-32 Not Available [facility] [address] [place], [address], 07/17/2023 06:15:55 07/16/2007/16/2023 CBC, PLATE LET, NO DIFFE RENTI AL WBC 7.5 x10e3 /uL 3.4-10 .8 Not Available [facility] [address] [place] [address], [address], 07/17/2023 06:15:56 07/16/2007/16/2023 CBC, PLATE LET, NO DIFFE RENTI AL RBC 4.66 x10e6 /uL 3.77-5 .28 Not Available [facility] [address] [place], [address], 07/17/2023 06:15:56 07/16/2007/16/2023 CBC, PLATE LET, NO DIFFE RENTI AL hemoglobin 13.4 g/dL 11.1-1 5.9 Not Available [facility] [address] [place], [address], 07/17/2023 06:15:56 07/16/2007/16/2023 CBC, PLATE LET, NO DIFFE RENTI AL hematocrit 41.7 % 34.0-4 6.6 Not Available [facility] [address] [place], [address], 07/17/2023 06:15:56 07/16/2007/16/2023 CBC, PLATE LET, NO DIFFE RENTI AL MCV 90 fL 79-97 Not Available [facility] [address] [place], [address], 07/17/2023 06:15:56 07/16/2007/16/2023 CBC, PLATE LET, NO DIFFE RENTI AL MCH 28.8 pg 26.6-3 3.0 Not Available [facility] [address] [place], [address], 07/17/2023 06:15:56 07/16/2007/16/2023 CBC, PLATE LET, NO DIFFE RENTI AL MCHC 32.1 g/dL 31.5-3 5.7 Not Available [facility] [address] [place], [address], 07/17/2023 06:15:56 07/16/2007/16/2023 CBC, PLATE LET, NO DIFFE RENTI AL RDW 12.7 % 11.5-1 4.5 Not Available [facility] [address] [place], [address], 07/17/2023 06:15:56 07/16/2007/16/2023 CBC, PLATE LET, NO DIFFE RENTI AL platelets 194 x10e3 /uL 150-45 0 Mean Plate let Volum e 10.6 fL 8.9-1 2.7 N Not Available [facility] [address] [place], [address], 07/17/2023 06:15:56 07/16/2007/16/2023 CBC, PLATE LET, NO DIFFE RENTI AL NRBC 0 % 0-0 Not Available [facility] [address] [place], [address], 07/17/2023 06:15:56 07/16/2007/17/2023 TSH TSH 2.340 uIU/m L 0.450- 4.500 Not Available [facility] ([facility]) [address] [facility] [address] [place], [place], [address], 07/17/2023 08:26:34 07/16/2007/17/2023 VITAM IN D, 25-HY DROXY vitamin D, 25-hydroxy 42.1 NG/mL 30.0-1 00.0 Vitam in D defic iency has been defin ed by the Insti tute of Medic ine and an Endoc rine Socie ty pract ice guide line as a level of serum 25-OH vitam in D less than 20 ng/mL (1,2) . The Endoc rine Socie ty went on to furth er defin e vitam in D insuf ficie ncy as a level betwe en 21 and 29 ng/mL (2). 1. IOM (Inst itute of Medic ine). 2010. Dieta ry refer ence intak es for calci um and D. Florencio sahu DC: The [facility], [facility]–1983 [facility] Press . 2. Arielle sharif MF, Olga pena [place], Fletcher off-F errar i DUMONT, et al. Evalu ation , treat ment, and preve ntion of vitam in D defic iency : an Endoc rine Socie ty clini [place] pract ice guide line. JCEM. 2010; 96(7) :1911 -30. Not Available [facility] ([facility]) [address] [facility] [place], [place], [address], 07/17/2023 08:26:35 07/07/2007/08/2024 LIPID PANEL cholesterol, total 136 mg/dL 100-19 9 Not Available [facility] ([facility]) [address] [facility] [place], [place], [address], 07/08/2024 08:29:56 07/07/2007/08/2024 LIPID PANEL triglyceride s 162 mg/dL 0-149 above high normal Not Available [facility] ([facility]) [address] [place], [address], 07/08/2024 08:29:56 07/07/2007/08/2024 LIPID PANEL HDL cholesterol 40 mg/dL >39 Not Available [facility]) [address] [facility] [place], [place], [address], 07/08/2024 08:29:56 07/07/2007/08/2024 LIPID PANEL VLDL cholesterol [place] 28 mg/dL 5-40 Not Available [facility] ([facility]) [address] [place], [address], 07/08/2024 08:29:56 07/07/2007/08/2024 LIPID PANEL LDL chol calc ([facility]) 68 mg/dL 0-99 Not Available [facility]) [address] [place], [address], 07/08/2024 08:29:56 07/07/2007/08/2024 COMP. METAB OLIC PANEL (14) glucose 102 mg/dL 70-99 above high normal Not Available [facility] ([facility]) [address] [facility] [place], [address], 07/08/2024 08:29:58 07/07/2007/08/2024 COMP. METAB OLIC PANEL (14) BUN 16 mg/dL 8-27 Not Available [facility] ([facility]) [address] [facility] [place], [address], 07/08/2024 08:29:58 07/07/2007/08/2024 COMP. METAB OLIC PANEL (14) creatinine 0.76 mg/dL 0.57-1 .00 Not Available [facility] ([facility]) [address] [facility] [place], [address], 07/08/2024 08:29:58 07/07/2007/08/2024 COMP. METAB OLIC PANEL (14) eGFR 85 mL/mi n/1.7 3 >59 Not Available [facility] ([facility]) [address] [facility] [place], [address], 07/08/2024 08:29:58 07/07/2007/08/2024 COMP. METAB OLIC PANEL (14) BUN/creatini ne ratio 21 12-28 Not Available [facility] ([facility]) [address] [facility] [place], [address], 07/08/2024 08:29:58 07/07/2007/08/2024 COMP. METAB OLIC PANEL (14) sodium 139 mmol/ L 134-14 4 Not Available [facility] ([facility]) [address] [facility] [place], [address], 07/08/2024 08:29:58 07/07/2007/08/2024 COMP. METAB OLIC PANEL (14) potassium 3.8 mmol/ L 3.5-5. 2 Not Available [facility] ([facility]) [address] [facility] [place], [address], 07/08/2024 08:29:58 07/07/2007/08/2024 COMP. METAB OLIC PANEL (14) chloride 98 mmol/ L 96-106 Not Available [facility] ([facility]) [address] [facility] [place], [place], [address], 07/08/2024 08:29:58 07/07/20 24 07/08/2024 COMP. METAB OLIC PANEL (14) carbon dioxide, total 25 mmol/ L 20-29 Not Available [facility] ([facility]) [address] [facility] [place], [place], [address], 07/08/2024 08:29:58 07/07/2007/08/2024 COMP. METAB OLIC PANEL (14) calcium 9.7 mg/dL 8.7-10 .3 Not Available [facility] ([facility]) [address] [facility] [place], [place], [address], 07/08/2024 08:29:58 07/07/2007/08/2024 COMP. METAB OLIC PANEL (14) protein, total 7.1 g/dL 6.0-8. 5 Not Available [facility] ([facility]) [address] [facility] [place], [place], [address], 07/08/2024 08:29:58 07/07/2007/08/2024 COMP. METAB OLIC PANEL (14) albumin 4.4 g/dL 3.9-4. 9 Not Available [facility] ([facility]) [address] [facility] [place], [place], [address], 07/08/2024 08:29:58 07/07/2007/08/2024 COMP. METAB OLIC PANEL (14) globulin, total 2.7 g/dL 1.5-4. 5 Not Available [facility] ([facility]) [address] [facility] [place], [place], [address], 07/08/2024 08:29:58 07/07/2007/08/2024 COMP. METAB OLIC PANEL (14) bilirubin, total 0.8 mg/dL 0.0-1. 2 Not Available [facility] ([facility]) [address] [place], [address], 07/08/2024 08:29:58 07/07/20 24 07/08/2024 COMP. METAB OLIC PANEL (14) alkaline phosphatase 108 IU/L 44-121 Not Available [facility] ([facility]) [address] [place], [address], 07/08/2024 08:29:58 07/07/2007/08/2024 COMP. METAB OLIC PANEL (14) AST (SGOT) 23 IU/L 0-40 Not Available [facility] ([facility]) [address] [place], [address], 07/08/2024 08:29:58 07/07/2007/08/2024 COMP. METAB OLIC PANEL (14) ALT (SGPT) 19 IU/L 0-32 Not Available [facility] ([facility]) [address] [place], [address], 07/08/2024 08:29:58 07/07/2007/08/2024 HEMOG LOBIN A1C hemoglobin A1C 6.2 % 4.8-5. 6 above high normal Predi abete s: 5.7 - 6.4 Diabe mesfin: >6.4 Glyce leona contr ol for adult s with diabe mesfin: <7.0 Not Available [facility] ([facility]) [address] [place], [address], 07/08/2024 08:29:59 07/07/2007/08/2024 VITAM IN D, 25-HY DROXY vitamin D, 25-hydroxy 43.7 NG/mL 30.0-1 00.0 Vitam in D defic iency has been defin ed by the Insti tute of Medic ine and an Endoc rine Socie ty pract ice guide line as a level of serum 25-OH vitam in D less than 20 ng/mL (1,2) . The Endoc rine Socie ty went on to furth er defin e vitam in D insuf ficie ncy as a level betwe en 21 and 29 ng/mL (2). 1. IOM (Inst itute of Medic ine). 2010. Dieta ry refer ence intak es for calci um and D. Florencio sahu DC: The [facility] Press . 2. Arielle sharif MF, Olga pena [place], Bisch off-F errar i DUMONT, et al. Evalu ation , treat ment, and preve ntion of vitam in D defic iency : an Endoc rine Socie ty clini [place] pract ice guide line. JCEM. 2010; 96(7) :1911 -30. Not Available [facility] ([facility]) [address] [facility] [place], [place], [address], 07/08/2024 08:30:00 10/07/1910/07/2024 urina lysis , dipst ick Leukocytes Trace Not Available In-Offi ce Order Internal Use Only DO Not Attach Compendium DO Not Attach Compendium, Do Not Delete/merge, 10/07/2024 10:47:48 10/07/1910/07/2024 urina lysis , dipst ick Nitrite negati ve Not Available In-Office Order Internal Use Only DO Not Attach Compendium DO Not Attach Compendium, Do Not Delete/merge, 10/07/2024 10:47:48 10/07/1910/07/2024 urina lysis , dipst ick Urobilinogen .2 Not Available In-Of fice Order Internal Use Only DO Not Attach Compendium DO Not Attach Compendium, Do Not Delete/merge, 10/07/2024 10:47:48 10/07/19 25 10/07/2024 urina lysis , dipst ick Protein Negati ve Not Available In-Office Order Internal Use Only DO Not Attach Compendium DO Not Attach Compendium, Do Not Delete/merge, 10/07/2024 10:47:48 10/07/19 25 10/07/2024 urina lysis , dipst ick pH 6.5 Not Available In-Office Order Internal Use Only DO Not Attach Compendium DO Not Attach Compendium, Do Not Delete/merge, 10/07/2024 10:47:48 10/07/19 25 10/07/2024 urina lysis , dipst ick Blood Non-He molyze d: Trace Not Available In-Office Order Internal Use Only DO Not Attach Compendium DO Not Attach Compendium, Do Not Delete/merge, 10/07/2024 10:47:48 10/07/19 25 10/07/2024 urina lysis , dipst ick Specific Timber 1.020 Not Available In-Off ice Order Internal Use Only DO Not Attach Compendium DO Not Attach Compendium, Do Not Delete/merge, 10/07/2024 10:47:48 10/07/19 25 10/07/2024 urina lysis , dipst ick Ketone Negati ve Not Available In-Office Order Internal Use Only DO Not Attach Compendium DO Not Attach Compendium, Do Not Delete/merge, 10/07/2024 10:47:48 10/07/19 25 10/07/2024 urina lysis , dipst ick Bilirubin Negati ve Not Available In-Office Order Internal Use Only DO Not Attach Compendium DO Not Attach Compendium, Do Not Delete/merge, 10/07/2024 10:47:48 10/07/19 25 10/07/2024 urina lysis , dipst ick Glucose Negati ve Not Available In-Office Order Internal Use Only DO Not Attach Compendium DO Not Attach Compendium, Do Not Delete/merge, 10/07/2024 10:47:48 01/11/20 23 01/10/2023 XR, wrist + hand No observ ation record ed. [address] [place], [address], 01/24/2023 14:16:12 03/09/20 23 03/09/2023 CT, abdom en + pelvi s, w/o contr ast No observ ation record ed. [place] [id number] [facility] [address], [place], [address], 03/13/2023 16:43:45 06/05/20 23 06/05/2023 MAMMO , scree ana, bilat eral No observ ation record ed. cox bransonsseyn [facility] [address] [place], [address], 06/27/2023 12:53:30 07/03/2007/03/2023 US, breas t, unila teral No observ ation record ed. [facility] [address] [place], [address], 07/05/2023 09:20:36 07/03/2007/03/2023 MAMMO , diagn ostic , unila teral No observ ation record ed. [address] ([employer]) [address] [place], [address], 07/03/2023 14:20:42 10/15/19 25 10/15/2024 CT, abdom en + pelvi s, w/ contr ast No observ ation record ed. [address], [place], [address], 10/16/2024 12:21:18 Result Notes None recorded. Problems Name Problem SNOMED Code Status Onset Date Resolution Date Notes Provider Name and Address Organization Details Recorded Time Low back pain 399659805 Active 2017 Not Available [facility] 2 06:06:52 Dysuria 12229794 Active 2017 Not Available [facility] 2 06:06:52 [place] shana 59594061 Active 2018 Not Available [facility] 2 06:06:52 Administ ration of influenz a vaccine Active 2018 Not Available [facility] 2 06:06:52 Normal grief reaction 415492708 Active 2019 Not Available [facility] 2 06:06:52 High hemoglob in A1c level 233932916 Active 2019 Not Available [facility] 2 06:06:52 Injury of ribs 596589028 Active 2020 right Not Available [facility] 2 06:06:52 Cardiome mahendra 6952789 Active 2020 Not Available [facility] 2 06:06:52 Screenin g for malignan t neoplasm of breast Active 2020 Not Available [facility] 2 06:06:52 Mammogra phy abnormal 510074909 Active 2020 Not Available [facility] 2 06:06:52 Cervical spondylo sis 617756036 Active 2020 see XR cervical spine 05/27/2021 Not Available [facility] 06:06[facility]52 Ultrason ography of breast abnormal 82897691149 720372 Active 2020 Not Available [facility] 2 06:06:52 Administ ration of pneumoco ccal vaccine Active 2020 Not Available [facility] 2 06:06:52 Menopaus e present 904617658 Active 2020 Not Available [facility] 2 06:06:52 HIV screenin g Active 2021 Richardson Correa PA-C Attn: Accounting ,[address] [facility], [place], [address] , [place] - [facility] 2 10:01:15 Pharyngi tis 624719978 Active 2021 Richardson Correa PA-C Attn: Accounting ,[address] [facility], [place], [address] , [place] [facility] 2 10:46:21 Cough 19749796 Active 2021 Emperatriz Meyer MD Attn: Accounting ,[address] [facility], [place], [address] , [place] - [facility] 2 17:15:56 Morbid obesity 865954225 Active 2022 Emperatriz Meyer MD Attn: Accounting ,[address] [facility], [place], [address] , [place] [facility] 3 10:57:52 Finger joint stiff 386795082 Active 2022 Emperatriz Meyer MD Attn: Accounting ,[address] [facility], [place], [address] , [place] [facility] 3 10:59:17 Pain of bilatera l hands 69043662443 870796 Active 2022 Emperatriz Meyer MD Attn: Accounting ,[address] [facility], [place], [address] , [place] [facility] 3 10:39:02 History of polyp of colon 617863003 Active 2023 Emperatriz Meyer MD Attn: Accounting ,[address] [facility], [place], [address] , [place] [facility] 4 10:34:33 Disorder of skin 47665310 Active 2023 Emperatriz Meyer MD Attn: Accounting ,[address] [facility], [place], [address] , [place] [facility] 4 10:36:51 Carcinom a of breast 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 Active 2023 Papillar y carcinom a 2020 Emperatriz Meyer MD Attn: Accounting ,[address] [facility], [place], [address] , [place] [facility] 4 10:28:22 Disorder of left ear 77441732539 45063 Active 2023 Emperatriz Meyer MD Attn: Accounting ,[address] [facility], [place], [address] , [place] [facility] 4 10:31:36 Urinary tract infectio us disease 08310557 Active 2024 Emperatriz Meyer MD Attn: Accounting ,[address] [facility], [place], [address] , [place] [facility] 5 15:39:12 [facility] hyperten alex 41916196 Active Not Available [facility] 2 06:06:52 Hyperlip idemia 89284274 Active Not Available [facility] 2 06:06:52 Follicul itis 23490293 Active Not Available [facility] 2 06:06:52 Acute labyrint hitis 49212524596 4103 Active Not Available [facility] 2 06:06:52 Obesity 854726247 Completed 01/08/2023 Emperatriz Meyer MD Attn: Accounting ,[address] [facility], [place], [address] , [facility] 3 10:57:41 Screenin g for malignan t neoplasm of colon Active 2016 Not Available [facility] 2 06:06:52 Vitamin D deficien cy 90828685 Active 2016 Not Available [facility] 2 06:06:52 Notes:prolapsed bowel in 200 7.... pinned to spine Problem Notes None recorded. Procedures Surgical History Date Name Laterality Status Provider Name and Address Organization Details Recorded Time 09/26/19 22 lumpectomy of breast completed Yenny Jackson MA [facility] 04/04/2022 09:43:11 09/24/19 16 Most Recent Mammogram completed Danish Cortez [facility] 06/19/2019 10:20:56 09/24/19 07 operation on intestine completed Danish Dana [facility] 06/19/2019 10:24:51 09/24/18 88 Hysterectomy completed Danish Dana [facility] 06/19/2019 10:23:01 Imaging Results Imaging Date Name Status LastModified by Organiz ation Details LastModified Time 01/10/2023 XR, wrist + hand completed [address], [place], [address], 01/24/2023 14:16:12 03/09/2023 CT, abdomen + pelvis, w/o contrast completed [address], [address], 03/13/2023 16:43:45 06/05/2023 MAMMO, screening, bilateral completed [facility] [address] [place], [address], 06/27/2023 12:53:30 07/03/2023 US, breast, unilateral completed [facility] [address] [place], [address], 07/05/2023 09:20:36 07/03/2023 MAMMO, diagnostic, unilateral completed [address] ([employer]) [address] [place], [address], 07/03/2023 14:20:42 10/15/2024 CT, abdomen + pelvis, w/ contrast completed [address] [facility] [address], [place], [address], 10/16/2024 12:21:18 Procedure Notes None recorded. Medical Equipment None Reported. Allergies No known drug allergies Medications Name Sig Start Date Stop Date Status Note LastModified by Organization Details LastModified Time multivitami n tablet Take 1 tablet every day by oral route. 04/13 completed Not Available Not Available Not Available cyclobenzap rine 10 mg tablet Take 0.5 tablets as needed by oral route at bedtime for 30 days. 08/09 completed Not Available Not Available Not Available anastrozole 1 mg tablet 01/08 completed Not Available Not Available Not Available clindamycin HCl 300 mg capsule TAKE 1 CAPSULE BY MOUTH THREE TIMES DAILY 07/07 completed Not Available Not Available Not Available azithromyci n 250 mg tablet TAKE 2 TABLETS BY MOUTH FOR 1 DAY THEN 1 TABLET EVERY DAY FOR 4 DAYS 06/09 completed Not Available Not Available Not Available pravastatin 40 mg tablet 1 tab po qd 2023 active last seen Not Available Not Available Not Available ibuprofen 800 mg tablet TAKE 1 TABLET BY MOUTH EVERY 6 HOURS NEEDED 01/08 completed Not Available Not Available Not Available fluconazole 150 mg tablet Take 1 tablet 3 times a week by oral route for 7 days. 04/13 completed Not Available Not Available Not Available metoprolol succinate ER 50 mg tablet,exte nded release 24 hr TAKE 1 TABLET BY MOUTH EVERY DAY 2023 active Not Available Not Available Not Avai lable hydrocodone 5 mg-acetamin ophen 325 mg tablet TAKE 1 TABLET BY MOUTH EVERY 12 HOURS NEEDED 01/08 completed Not Available Not Available Not Available prednisone 20 mg tablet 2 tabs po twice daily for 2 days ; 1 tab twice daily for 5 days ; 0.5 tab twice daily for 2 days; 0.5 tab for one day. Take 2nd dose every day at noon. 01/08 completed Not Available Not Available Not Available meclizine 12.5 mg tablet TAKE 1 TABLET BY MOUTH THREE TIMES DAILY 01/08 completed Not Available Not Available Not Available potassium chloride ER 10 mEq tablet,exte nded release TAKE 1 TABLET BY MOUTH EVERY DAY IN THE MORNING 2023 active Not Available Not Available Not Avai lable metronidazo le 500 mg tablet Take 1 tablet twice a day by oral route for 7 days. 04/13 completed Not Available Not Available Not Available amlodipine 5 mg tablet TAKE 2 TABLET BY MOUTH EVERY DAY IN THE MORNING 2023 active Not Available Not Available Not Avai lable peg-electro lyte solution 420 gram oral solution 01/08 completed Not Available Not Available Not Available tramadol 50 mg tablet TAKE 1 TO 2 TABLETS BY MOUTH EVERY 6 HOURS NEEDED FOR PAIN 01/08 completed Not Available Not Available Not Available losartan 100 mg-hydrochl orothiazide 25 mg tablet TAKE 1 TABLET BY MOUTH EVERY DAY 02/28 completed Not Available Not Available Not Available amoxicillin 875 mg tablet TAKE 1 TABLET BY MOUTH TWICE DAILY 02/28 completed Not Available Not Available Not Available tamsulosin 0.4 mg capsule TAKE 1 CAPSULE BY MOUTH EVERY DAY 01/08 completed Not Available Not Available Not Available Cipro 500 mg tablet Take 1 tablet every 12 hours by oral route. 2024 active Not Available Not Available Not Avai lable fluoxetine 10 mg capsule Take 1 capsule every day by oral route in the morning for 30 days. 03/31 completed Not Available Not Available Not Available bisacodyl 5 mg tablet,sherin yed release TAKE 6 TABLETS BY MOUTH AT 8 AM ON 07/11 completed Not Available Not Available Not Available pravastatin 20 mg tablet Take 1 tablet every day by oral route in the evening for 30 days. 08/02 completed Not Available Not Available Not Available hydrochloro thiazide 25 mg tablet TAKE 1 TABLET BY MOUTH EVERY DAY 08/09 completed Not Available Not Available Not Available ibuprofen 600 mg tablet TAKE 1 TABLET BY MOUTH TWICE DAILY WITH MEALS 01/08 completed Not Available Not Available Not Available losartan 50 mg-hydrochl orothiazide 12.5 mg tablet TAKE 1 TABLET BY MOUTH EVERY DAY 01/08 completed Not Available Not Available Not Available metoclopram roberto 10 mg tablet TAKE 1 TABLET BY MOUTH EVERY 4 TO 6 HOURS NEEDED 01/08 completed Not Available Not Available Not Available ezetimibe 10 mg tablet TAKE 1 TABLET BY MOUTH EVERY DAY active Not Available Not Available No t Available metoprolol tartrate 25 mg tablet TAKE 1 TABLET BY MOUTH TWICE DAILY 02/28 completed Not Available Not Available Not Available nitrofurant oin monohydrate /macrocryst als 100 mg capsule TAKE 1 CAPSULE BY MOUTH TWICE DAILY 01/08 completed Not Available Not Available Not Available Boudreauxs Butt Paste 16 % topical ointment Apply 1 g as needed by topical route. 04/13 completed Not Available Not Available Not Available losartan 100 mg-hydrochl orothiazide 12.5 mg tablet TAKE 1 TABLET BY MOUTH EVERY DAY active Not Available Not Available No t Available metoprolol tartrate 25 mg 1 po bid 08/02 completed Not Available Not Available Not Available diclofenac 1 % topical gel APPLY 2 GRAM TO THE AFFECTED AREA(S) BY TOPICAL ROUTE 4 TIMES PER DAY 08/09 completed Not Available Not Available Not Available Calcium with Vitamin D 600 mg-10 mcg (400 unit) tablet Take 1 tablet twice a day by oral route. 08/09 completed Not Available Not Available Not Available Osphena 60 mg tablet TAKE 1 TABLET BY MOUTH EVERY DAY 04/13 completed Not Available Not Available Not Available Pennsaid 20 mg/gram/act uation (2 %) topical soln in metered-dos e pump APPLY 2 PUMPS (40 MG) TO THE AFFECTED KNEE(S) BY TOPICAL ROUTE 2 TIMES PER DAY 08/09 completed Not Available Not Available Not Available Flulaval Quad (PF) 60 mcg (15 mcg x 4)/0.5 mL IM syringe 04/04 completed Not Available Not Available Not Available Vitals Date Recorded Body height Provider Name an d Address Organization Details Last Updated DateTime 01/08/2023 156.21 cm Dalia Ellis MA [facility] 10:24:36 Date Recorded Body mass index (BMI) Body weight Provider Name and Address Organization Details Last Updated DateTime 01/08/2023 37.4 kg/m2 63410.07 g Dalia Ellis MA [facility] 0 01/08/2023 10:35:51 Date Recorded Body temperature Provider Name a nd Address Organization Details Last Updated DateTime 01/08/2023 98.1 [degF] Dalia Ellis MA [facility] 01/09/20 23 10:35:54 Date Recorded Heart rate Provider Name an d Address Organization Details Last Updated DateTime 01/08/2023 89 /min Dalia Ellis MA [facility] 10:37:18 Date Recorded Oxygen saturation Oxygen saturation in Arterial blood by Pulse oximetry Provider Name and Address Organization Details Last Updated DateTime 01/08/2023 96 % 96 % Dalia Ellis MA [facility] 01/08/2023 10:37:23 Date Recorded Body height Provider Name an d Address Organization Details Last Updated DateTime 05/10/2023 156.21 cm Madelyn Hong MA [facility] 05/10/2023 10:06:29 Date Recorded Body mass index (BMI) Body weight Provider Name and Address Organization Details Last Updated DateTime 05/10/2023 37.2 kg/m2 28641.47 jm Hong MA [facility] 10:09:37 Date Recorded Heart rate Provider Name an d Address Organization Details Last Updated DateTime 05/10/2023 91 /min [facility] Whatley [facility] 05/10/2023 10:11:57 Date Recorded Oxygen saturation Oxygen saturation in Arterial blood by Pulse oximetry Provider Name and Address Organization Details Last Updated DateTime 05/10/2023 94 % 94 % Madelyn Hong [place] [facility] 05/10/2023 10:12:02 Date Recorded Body height Provider Name an d Address Organization Details Last Updated DateTime 07/10/2023 156.21 cm Dalia Ellis MA [facility] 3 09:42:45 Date Recorded Body mass index (BMI) Body weight Provider Name and Address Organization Details Last Updated DateTime 07/10/2023 36.2 kg/m2 14809.51 g Dalia Ellis MA [facility] 1 10:01:30 Date Recorded Heart rate Provider Name an d Address Organization Details Last Updated DateTime 07/10/2023 80 /min Dalia Ellis [place] [facility] 3 10:01:34 Date Recorded Body temperature Provider Name a nd Address Organization Details Last Updated DateTime 07/10/2023 98 [degF] Dalia Ellis [place] [facility] 10:01:37 Date Recorded Oxygen saturation Oxygen saturation in Arterial blood by Pulse oximetry Provider Name and Address Organization Details Last Updated DateTime 07/10/2023 95 % 95 % Dalia Ellis MA [facility] 07/10/2023 10:01:44 Date Recorded Body height Provider Name an d Address Organization Details Last Updated DateTime 01/09/2024 156.21 cm Dalia Ellis [place] [facility] 09:51:33 Date Recorded Body mass index (BMI) Body weight Provider Name and Address Organization Details Last Updated DateTime 01/09/2024 34.9 kg/m2 54222.37 g Dalia Ellis [place] [facility] 01/09/2024 10:15:34 Date Recorded Body temperature Provider Name a nd Address Organization Details Last Updated DateTime 01/09/2024 98 [degF] Dalia Ellis [place] [facility] 10:15:43 Date Recorded Oxygen saturation Oxygen saturation in Arterial blood by Pulse oximetry Provider Name and Address Organization Details Last Updated DateTime 01/09/2024 96 % 96 % Dalia Ellis [place] [facility] 01/09/2024 10:15:46 Date Recorded Heart rate Provider Name an d Address Organization Details Last Updated DateTime 01/09/2024 84 /min Dalia Ellis MA [facility] 10:15:50 Date Recorded Body height Provider Name an d Address Organization Details Last Updated DateTime 07/07/2024 156.21 cm Jose Correa MA [facility] 07/07/2024 09:46:16 Date Recorded Body mass index (BMI) Body weight Provider Name and Address Organization Details Last Updated DateTime 07/07/2024 36.6 kg/m2 59444.7 g Jose Correa MA [facility] 07/07/2024 09:51:27 Date Recorded Heart rate Provider Name an d Address Organization Details Last Updated DateTime 07/07/2024 82 /min Jose Correa MA [facility] 06/24 10:00:31 Date Recorded Oxygen saturation Oxygen saturation in Arterial blood by Pulse oximetry Provider Name and Address Organization Details Last Updated DateTime 07/07/2024 95 % 95 % Jose Correa MA [facility] 07/07/2024 10:00:35 Date Recorded Systolic blood pressure Diastolic blood pressure Provider Name and Address Organization Details Last Updated DateTime 01/08/2023 142 mm[Hg] 82 mm[Hg] Dalia Ellis MA [facility] 01/08/2023 10:37:28 Date Recorded Systolic blood pressure Diastolic blood pressure Provider Name and Address Organization Details Last Updated DateTime 05/10/2023 150 mm[Hg] 85 mm[Hg] Madelyn Hong MA [facility] 05/10/2023 10:11:49 Date Recorded Systolic blood pressure Diastolic blood pressure Provider Name and Address Organization Details Last Updated DateTime 07/10/2023 140 mm[Hg] 80 mm[Hg] Dalia Ellis MA [facility] 07/10/2023 10:01:32 Date Recorded Systolic blood pressure Diastolic blood pressure Provider Name and Address Organization Details Last Updated DateTime 01/09/2024 134 mm[Hg] 80 mm[Hg] Dalia Ellis MA [facility] 01/09/2024 10:15:53 Date Recorded Systolic blood pressure Diastolic blood pressure Provider Name and Address Organization Details Last Updated DateTime 07/07/2024 130 mm[Hg] 81 mm[Hg] Luis Eduardobaileejennifer Correa [place] [facility] 07/07/2024 10:00:14 Social History Question Answer Notes LastModified by Organizat ion Details LastModified Time Tobacco Smoking Status Never Smoker Not Available [facility] 07/27/2020 03:43:22 Do You Have An Advance Directive? No [id number] Information not available 07/27/2020 What Is Your Level Of Alcohol Consumption? None [id number] Information not available 07/27/2020 Are You Blind Or Do You Have Difficulty Seeing? No [id number] Information not available 07/27/2020 What Is Your Level Of Caffeine Consumption? Moderate [id number] Information not available 07/27/2020 How Much Tobacco Do You Chew? None [id number] Information not available 07/27/2020 Are You Currently Employed? No Information not available 02/03/2021 Are You Deaf Or Do You Have Serious Difficulty Hearing? No [id number] Information not available 07/27/2020 What Type Of Diet Are You Following? REGULAR [id number] Information not available 07/27/2020 Which Illicit Or Recreational Drugs Have You Used? 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 No [id number] Information not available 07/27/2020 Hard Of Hearing Or Deaf In One Or Both Ears? No Information not available 02/23/2015 Legally Blind In One Or Both Eyes? No Information no t available 02/23/2015 Marital Status Informatio n not available 02/23/2015 What Was The Date Of Your Most Recent Tobacco Screening? 07/07/2024 Information not available 07/07/2024 How Many Children Do You Have? 2 Information not available 02/03/2021 Do You Use Protection During Sex? No Information not available 02/03/2021 What Is Your Relationship Status? Information not available 02/03/2021 Do You Use Your Seat Belt Or Car Seat Routinely? Yes Information not available 02/03/2021 Seat Belts Used Routinely Yes Information not available 02/23/2015 Are You Sexually Active? Yes Information not available 02/03/2021 Smoke Alarm In Home Yes Information not available 02/23/2015 Do You Have Smoke And Carbon Monoxide Detectors In Your Home? Yes Information not available 02/03/2021 Are You Passively Exposed To Smoke? Yes Information no t available 02/03/2021 How Much Tobacco Do You Smoke? No [id number] Information not available 07/27/2020 General Stress Level Medium Information not available 02/23/2015 Do You Feel Stressed (tense, Restless, Nervous, Or Anxious, Or Unable To Sleep At Night)? [id number] Information not available 02/03/2021 Do You Use Any Illicit Or Recreational Drugs? No Information not available 02/03/2021 Do You Use Sunscreen Routinely? No [id number] Information not available 07/27/2020 Has Tobacco Cessation Counseling Been Provided? No Information not available 01/08/2023 On What Date Was Tobacco Cessation Counseling Provided? 07/07/2024 Information not available 07/07/2024 Do You Or Have You Ever Used Any Other Forms Of Tobacco Or Nicotine? No Information not available 01/08/2023 Sex: Female Functional Status Question Answer Note LastModified by Organizat ion Details LastModified Time Do you have difficulty walking or climbing stairs? No [id number] Information not available 07/27/2020 Do you have difficulty doing errands alone? No [id number] Information not available 07/27/2020 Are you able to care for yourself? Yes Information not available 02/03/2021 Do you have difficulty dressing or bathing? No [id number] Information not available 07/27/2020 What is your exercise level? Occasional [id number] Information not available 07/27/2020 Mental Status Question Answer Note LastModified by Organization D etails LastModified Time Do you have difficulty concentrating, remembering or making decisions? No [id number] Information no t available 07/27/2020 Family History Relationship Description Onset Age of this Age Resolved Age Notes LastModified by Organization Details LastModified Time Mother Coronary arterioscler osis Not available 2014 10:15:49 Mother Heart disease Not available 2014 10:15:49 Mother Hypertensive disorder Not available 2014 10:15:49 Sister Diabetes mellitus Not available 2014 10:15:49 Sister Hypertensive disorder Not available 2014 10:15:49 Brother Diabetes mellitus Not available 2014 10:15:49 Brother Heart disease Not available 2014 10:15:49 Brother Hypertensive disorder Not available 2014 10:15:49 Maternal Aunt Neoplasm of uterine cervix mwasserman Not available 06/19 10:25:59 Medical History Condition Response Coronary Artery Disease N Other N Atrial Fibrillation N High Blood Pressure Y Breast Cancer N Thyroid Problems N Kidney or Bladder Problems N COPD N Blood Clots N Depression N GI Problems N Have you had a mammogram in the last yea r? N Skin Problems Y Breast Problem N Anemia N Heart Attack (MS) N Diabetes N Anxiety Disorder N Muscle, Joint, or Bone Problems N Seizures/Epilepsy N Have you had a colonoscopy in the last 1 0 years? N Acid Reflux (GERD) N Cancer Y Stroke N Allergies N Asthma N Have you had a PSA blood test in the las t year? N High Cholesterol Y Hepatitis N Liver Disease N Headaches N Osteoporosis N Heart Failure N Gynecological History Statement/Question Response Date of Last Pap Smear Sexual Problems? N Most Recent Mammogram 09/24/2015 Obstetrics History GPAL:G 2 P 2 0 0 2 Type Value Full Term 2 Living 2 Total 2 Immunizations Vaccine Type Date Status Note Provider Casey prakash and Address Organization Details Recorded Time Tdap 6 completed Not Available [facility] 10/11/2019 02:30:21 Influenza, split virus, quadrivalent, preservative 0 completed Not Available [facility] 09/28/2021 06:06:52 COVID-19, mRNA, LNP-S, PF, 100 mcg/0.5mL dose or 50 mcg/0.25mL dose 1 completed Not Available [facility] 09/28/2021 06:06:52 COVID-19, mRNA, LNP-S, PF, 100 mcg/0.5mL dose or 50 mcg/0.25mL dose 1 completed Not Available [facility] 09/28/2021 06:06:52 COVID-19, mRNA, LNP-S, PF, 100 mcg/0.5mL dose or 50 mcg/0.25mL dose 1 completed [facility], [place] [facility] 06/09/2022 15:14:04 COVID-19, mRNA, LNP-S, PF, 100 mcg/0.5mL dose or 50 mcg/0.25mL dose 2 completed [facility] [place] [facility] 06/09/2022 15:14:27 Influenza, split virus, trivalent, PF 7 completed Jose Correa [place], [place] [facility] 07/07/2024 09:58:36 Influenza, split virus, quadrivalent, preservative 9 completed Not Available [facility] 10/11/2019 02:41:29 Pneumococcal conjugate PCV 13 1 completed [facility] [place] [facility] 08/12/2021 10:52:14 Influenza, split virus, quadrivalent, preservative 5 completed Not Available [facility] 10/11/2019 02:47:51 Past Encounters Encounter ID Performer Location Encounter Start Date Encounter Closed Date Diagnosis/Indication Diagnosis SNOMED-CT Code Diagnosis ICD10 Code Diagnosis Note [id number] Maryam (Adult Med) [address] [place] [address] [id number] 0 02/23/2015 09:39:49 02/23/2015 11:21:06 Essential hypertension 82631003 Hyperlipidemia 88364441 [facility] [id number] [facility] (Adult Med) [address] [place] [address] [id number] 05/26/2015 09:14:07 05/26/2015 10:15:40 Adult health examination 650477135 Essential hypertension 72426154 Hyperlipidemia 67703646 Folliculitis 35250624 [id number] ALIZA Chavis (Adult Med) [address] [place] [address] [id number] 0 07/27/2015 09:15:41 07/27/2015 10:04:19 Administration of influenza vaccine 70108857 Z23 Adult heal th examination 601338902 Z00.00 Essential hypertension 24775532 I10 Hyperlipidemia 71084675 E78.5 [id number] ALIZA Chavis (Adult Med) [address] [place] [address] [id number] 0 10/05/2015 09:14:36 10/05/2015 10:02:26 Acute labyrinthitis 3138505553 69205 H83.09 Essential hypertension 43969313 I10 Hyperlipidemia 08035382 E78.5 [id number] ALIZA Chavis (Adult Med) [address] [place] [address] [id number] 0 02/03/2016 09:14:08 02/03/2016 16:59:30 Essential hypertension 20003986 I10 Hyperlipidemia 23396895 E78.5 Obesity 204315431 E66.9 Administra tion of tetanus vaccine 161214244 Z23 Screening mammography 24 064175 Z12.31 [id number] ALIZA Chavis (Adult Med) [address] [place] [address] [id number] 0 08/02/2016 10:29:29 08/02/2016 12:00:24 Obesity 482966060 E66.9 Hyperlipidemia 85291578 E78.5 Essential hypertension 12828052 I10 Acute labyrinthitis 4336 800856 94306 H83.09 [id number] ALIZA Chavis (Adult Med) [address] [place] [address] [id number] 0 11/23/2016 09:31:42 11/24/2016 11:40:13 Screening for malignant neoplasm of colon 206252923 Z12.11 Essential hypertension 85343352 I10 Hyperlipidemia 77221248 E78.5 Obesity 891860277 E66.9 Acute labyrinthitis 4336 805473 14056 H83.09 [id number] ALIZA Chavis (Adult Med) [address] [place] [address] 71590-933 0 05/25/2017 09:32:08 05/25/2017 10:53:40 Essential hypertension 74517471 I10 Acute labyrinthitis 4336 623387 94692 H83.09 Hyperlipidemia 98903518 E78.5 Vitamin D deficiency 347 14020 E55.9 Obesity 354875450 E66.9 [id number] ALIZA Chavis (Adult Med) [address] [place] [address] [id number] 0 08/24/2017 09:32:20 08/24/2017 10:21:15 Essential hypertension 31457403 I10 Hyperlipidemia 79591303 E78.5 Obesity 604200360 E66.9 Vitamin D deficiency 347 14333 E55.9 Screening for malignant neoplasm of colon 434002947 Z12.11 [id number] ALIZA Chavis (Adult Med) [address] [place] [address] [id number] 0 02/22/2018 09:21:27 02/22/2018 10:17:15 Hyperlipidemia 25708563 E78.5 Essential hypertension 28864801 I10 Dysuria 49283514 R30.0 Low back pain 893267378 M54.5 Vitamin D deficiency 347 03570 E55.9 Obesity 511447393 E66.9 [id number] ALIZA Chavis (Adult Med) [address] [place] [address] [id number] 0 06/04/2018 10:03:24 06/05/2018 10:23:44 Hyperlipidemia 22446983 E78.5 Essential hypertension 91075204 I10 Obesity 804294701 E66.9 Low back pain 565531486 M54.5 Vitamin D deficiency 347 83332 E55.9 Screening for malignant neoplasm of colon 439525750 Z12.11 [id number] ALIZA Chavis (Adult Med) [address] [place] [address] [id number] 0 09/05/2018 09:18:32 09/05/2018 10:34:15 Essential hypertension 92104471 I10 Hyperlipidemia 18058936 E78.5 Obesity 900963692 E66.9 Vitamin D deficiency 347 93448 E55.9 Screening for malignant neoplasm of colon 223525660 Z12.11 [id number] ALIZA Chavis (Adult Med) [address] [place] [address] [id number] 0 11/05/2018 09:34:48 11/05/2018 10:50:15 Hypokalemia 37079599 E87.6 Hyperlipidemia 13097691 E78.5 Essential hypertension 15528535 I10 Obesity 974820169 E66.9 Vitamin D deficiency 347 40766 E55.9 Low back pain 100220897 M54.5 Screening for malignant neoplasm of colon 097879923 Z12.11 [id number] ALIZA Chavis (Adult Med) [address] [place] [address] [id number] 0 03/13/2019 11:20:26 03/14/2019 08:56:05 Essential hypertension 39723985 I10 Hyperlipidemia 06685579 E78.5 Vitamin D deficiency 347 20099 E55.9 Low back pain 107389621 M54.5 Hypokalemia 94084217 E87 .6 Dysuria 43931700 R30.0 Obesity 536443187 E66.9 [id number] ALIZA Chavis (Adult Med) [address] [place] [address] [id number] 0 05/12/2019 09:16:58 05/13/2019 09:16:57 Low back pain 070039422 M54.5 [id number] Danish EASLEY ([employer]) [address] [place] [address] [id number] 0 06/19/2019 09:57:34 06/20/2019 11:42:59 Screening mammography 01634719 Z12.31 History of hysterectomy 755046304 Z90.711 2007 for cervical cancer Screening for osteoporosis 792779885 Z13.820 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 Menopausal syndrome 1237 85835 N95.9 Candidal vulvovaginitis 31859561 B37.3 [id number] ALIZA Chavis (Adult Med) [address] [place] [address] [id number] 0 06/26/2019 09:20:24 06/26/2019 10:03:58 Essential hypertension 71153051 I10 Hyperlipidemia 73690882 E78.5 Vitamin D deficiency 347 68029 E55.9 Low back pain 983957543 M54.5 Hypokalemia 23471038 E87 .6 Administra tion of influenza vaccine 32112826 Z23 Obesity 752251743 E66.9 [id number] ALIZA Chavis (Adult Med) [address] [place] [address] [id number] 0 07/24/2019 09:27:53 07/24/2019 10:15:50 Essential hypertension 47759922 I10 Hyperlipidemia 82885522 E78.5 Obesity 555475895 E66.9 Vitamin D deficiency 347 55429 E55.9 Low back pain 549684318 M54.5 Hypokalemia 38925240 E87 .6 History of hysterectomy 079123507 Z90.931 [id number] ALIZA Chavis (Adult Med) [address] [place] [address] [id number] 0 12/08/2019 10:44:52 12/08/2019 11:47:12 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 Essential hypertension 70242549 I10 Hyperlipidemia 35676067 E78.5 Vitamin D deficiency 347 12203 E55.9 Hypokalemia 67296411 E87 .6 Low back pain 366022055 M54.5 [id number] ALIZA Chavis (Adult Med) [address] [place] [address] [id number] 0 04/13/2020 09:35:27 04/13/2020 10:18:08 Essential hypertension 98625986 I10 Hyperlipidemia 35390741 E78.5 Vitamin D deficiency 347 07237 E55.9 High hemog lobin A1c level 873082657 R73.09 [id number] ALIZA Chavis (Adult Med) [address] [place] [address] [id number] 0 07/26/2020 08:00:03 07/26/2020 11:11:05 High hemoglobin A1c level 302749807 R73.09 Hyperlipidemia 73816616 E78.5 Low back pain 715580200 M54.5 Vitamin D deficiency 347 57691 E55.9 Essential hypertension 84875225 I10 Normal grief reaction 27 7197112 F43.20 Hypokalemia 82787274 E87 .6 [id number] ALIZA Chavis (Adult Med) [address] [place] [address] 82104-434 0 01/04/2021 11:05:45 01/06/2021 11:05:34 Low back pain 179587402 M54.5 Essential hypertension 92059585 I10 Hyperlipidemia 26156361 E78.5 Vitamin D deficiency 347 58689 E55.9 [id number] ALIZA Chavis (Adult Med) [address] [place] [address] 28235-705 0 02/03/2021 11:43:22 02/03/2021 12:23:07 Low back pain 018725931 M54.5 Hyperlipidemia 22456343 E78.5 Hypokalemia 84686312 E87 .6 Vitamin D deficiency 347 97957 E55.9 High hemog lobin A1c level 440944929 R73.09 Essential hypertension 32166630 I10 [id number] ALIZA Chavis (Adult Med) [address] [place] [address] [id number] 0 03/31/2021 10:35:44 03/31/2021 11:41:27 Cardiomegaly 7960325 I51.7 Hyperlipidemia 05291819 E78.5 Essential hypertension 57202170 I10 Screening for malignant neoplasm of breast 151233706 Z12.39 High hemog lobin A1c level 138740244 R73.09 Low back pain 595428246 M54.5 Vitamin D deficiency 347 92918 E55.9 Screening mammography of bilateral breasts 4992876127 60642 Z12.31 [id number] ALIZA Chavis (Adult Med) [address] [place] [address] 90449-240 0 08/12/2021 09:37:08 08/12/2021 11:13:10 Mammography abnormal 383115346 R92.8 Administra tion of pneumococcal vaccine 74042064 Z23 Normal grief reaction 27 9916319 F43.20 Menopause present 783019 006 Z78.0 [id number] ALIZA Chavis (Adult Med) [address] [place] [address] 34330-013 0 11/25/2021 10:21:39 12/01/2021 17:01:26 Cervical spondylosis 973313770 M47.812 Essential hypertension 62024841 I10 High hemog lobin A1c level 487306435 R73.09 Hyperlipidemia 58312071 E78.5 Low back pain 487906403 M54.50 Normal grief reaction 27 1834318 F43.20 Vitamin D deficiency 347 72623 E55.9 [id number] ALIZA Chavis (Adult Med) [address] [place] [address] 95776-626 0 02/28/2022 09:59:45 03/01/2022 11:47:22 Essential hypertension 33872085 I10 Acute labyrinthitis 4336 921530 37236 H83.09 Cardiomegaly 5542507 I51 .7 Cervical spondylosis 387 037252 M47.812 High hemog lobin A1c level 723219290 R73.09 Hyperlipidemia 66774940 E78.5 Low back pain 804683381 M54.50 Obesity 965019100 E66.9 Vitamin D deficiency 347 38759 E55.9 [id number] ALIZA Chavis (Adult Med) [address] [place] [address] [id number] 0 04/04/2022 09:06:07 04/05/2022 11:44:29 Screening for malignant neoplasm of breast 416838094 Z12.39 Vitamin D deficiency 347 72038 E55.9 Normal grief reaction 27 1986423 F43.20 Hyperlipidemia 31901454 E78.5 Essential hypertension 09603534 I10 HIV screening 231932031 Z11.4 High hemog lobin A1c level 751936288 R73.09 Cervical spondylosis 387 960865 M47.812 Low back pain 386780107 M54.50 Screening mammography 24 013193 Z12.31 [id number] ALIZA Chavis (Adult Med) [address] [place] [address] [id number] 0 05/08/2022 10:18:30 05/09/2022 08:17:42 Essential hypertension 04699211 I10 Low back pain 023220957 M54.50 Pharyngitis 896338471 J0 2.9 Cardiomegaly 0788173 I51 .7 Cervical spondylosis 387 911537 M47.812 High hemog lobin A1c level 217325183 R73.09 Hyperlipidemia 36221356 E78.5 Normal grief reaction 27 8809562 F43.20 Vitamin D deficiency 347 33990 E55.9 [id number] ALIZA Chavis (Adult Med) [address] [place] [address] [id number] 0 06/09/2022 10:30:01 06/12/2022 13:58:21 Cervical spondylosis 159207654 M47.812 Hyperlipidemia 01235190 E78.5 Essential hypertension 10143980 I10 Low back pain 027988687 M54.50 Obesity 649763468 E66.9 Vitamin D deficiency 347 41454 E55.9 Cardiomegaly 6202297 I51 .7 High hemog lobin A1c level 659711002 R73.09 [id number] MD Maryam White (Adult Med) [address] [place] [address] [id number] 0 08/09/2022 14:57:26 08/11/2022 12:39:15 Essential hypertension 66012955 I10 Cont current regimen Cough 79985369 R05.9 [id number] MD Maryam White (Adult Med) [address] [place] [address] [id number] 0 01/08/2023 10:13:51 01/09/2023 10:18:23 Morbid obesity 285130540 E66.01 Essential hypertension 63628453 I10 Cont current regimen Hyperlipidemia 63407278 E78.5 Cardiomegaly 0061368 I51 .7 Finger joint stiff 22044 8005 M25.649 Vitamin D deficiency 347 81348 E55.9 Screening for malignant neoplasm of colon 709173446 Z12.11 [id number] MD Maryam White (Adult Med) [address] [place] [address] 67305-116 0 05/10/2023 09:35:49 05/14/2023 10:00:26 Essential hypertension 21009338 I10 high x last three visits. Will increase amlodipine to 10 mg/d Morbid obesity 505814921 E66.01 Screening for malignant neoplasm of breast 572494917 Z12.39 Screening for malignant neoplasm of colon 189350230 Z12.11 Pain of bi lateral hands 0434457727 4586533 M79.641 M79.642 Screening mammography 24 824886 Z12.31 [id number] MD Maryam White (Adult Med) [address] [place] [address] [id number] 0 07/10/2023 09:34:52 07/19/2023 12:43:18 Essential hypertension 92075697 I10 Will increase amlodipine to 10 mg/d. Will increase losartan Hyperlipidemia 78090391 E78.5 Hypokalemia 70799936 E87 .6 Low back pain 775822232 M54.50 Morbid obesity 586714472 E66.01 Vitamin D deficiency 347 12155 E55.9 [id number] Emperatriz Meyer MD [facility] (Adult Med) [address] [place] [address] 13690-966 0 01/09/2024 09:27:37 01/10/2024 12:34:09 Obesity 623359709 E66.9 Essential hypertension 78396084 I10 Continue current regimen High hemog lobin A1c level 143441706 R73.09 Hyperlipidemia 48472217 E78.5 Hypokalemia 91156274 E87 .6 Low back pain 954595456 M54.50 Morbid obesity 039489003 E66.01 Vitamin D deficiency 347 45756 E55.9 History of polyp of colon 134109147 Z86.010 Get colonoscop y results Disorder of skin 8990468 5 L98.9 [id number] MD Maryam White (Adult Med) [address] [place] [address] 41068-933 0 07/07/2024 09:31:14 07/08/2024 10:00:55 Essential hypertension 11555139 I10 Continue current regimen High hemog lobin A1c level 885667160 R73.09 History of polyp of colon 347451993 Z86.0100 Hyperlipidemia 56939815 E78.5 Morbid obesity 793533495 E66.01 Vitamin D deficiency 347 47367 E55.9 Carcinoma of breast 2548 27935 C50.919 Screening for malignant neoplasm of breast 969074876 Z12.39 Disorder of left ear 081 6992284 073180 H93.92 Will refer to ENT after other problems addresses Hypokalemia 95595215 E87 .6 Health Concerns Section Related Observation LastModified by Organization Detai ls LastModified Time None Recorded Concern Status LastModified by Organization Details LastModified Time None Recorded Advance Directives Directive N: Payers Encounter Date Sequence Insurance Name Policy Number Policy Mcghee Covered Member ID Mcghee Member ID Guarantor Name 01/08/2023 1 [facility] (MEDICARE REPLACEMENT/A DVANTAGE - HMO) [id number] Yaneth A Estrella [id number] Yaneth Ebonie Estrella 05/10/2023 1 [facility] (MEDICARE REPLACEMENT/A DVANTAGE - HMO) [id number] Yaneth A Estrella [id number] Yaneth Ebonie Estrella 07/10/2023 1 [facility] (MEDICARE REPLACEMENT/A DVANTAGE - HMO) [id number] Yaneth A Estrella [id number] Yaneth Ebonie Estrella 01/09/2024 1 [facility] (MEDICARE REPLACEMENT/A DVANTAGE - HMO) [id number] Yaneth A Estrella [id number] Yaneth Ebonie Estrella 07/07/2024 1 [facility] (MEDICARE REPLACEMENT/A DVANTAGE - HMO) [id number] Yaneth A Estrella [id number] Yaneth Ebonie Estrella Notes Date Note Type Note Provider Name and Address Organization Details Recorded Time 01/08/2023 text/html Hands swelling a nd stiffness in hands especially on the left in the past month. She has tried OTC meds with some relief. Emperatriz Meyer MD Attn: Accounting,[address] [facility], [place], [address], [facility] 01/08/2023 11:04:03 05/10/2023 text/html Here for four month f/u visit. Needs mammogram. BP med was apparently denied Emperatriz Meyer MD Attn: Accounting,[address] [facility], [place], [address], [facility] 05/10/2023 10:41:36 07/10/2023 text/html Here for BP f/u. Scheduled for colonoscopy in two days. Emperatriz Meyer MD Attn: Accounting,[address] [facility], [place], [address], [place] [facility] 07/10/2023 10:38:18 01/09/2024 text/html Here for routine f/u. Had colonoscopy about six months ago. Wants results. Has skin lesions on her ear she wants examined by dermatology Emperatriz Meyer MD Attn: Accounting,[address] [facility], [place], [address], [place] [facility] 01/09/2024 10:39:49 07/07/2024 text/html Throbbing of lef t ear for four months. Needs mammogram Emperatriz Meyer MD Attn: Accounting,[address] [facility], [place], [address], [place] [facility] 07/07/2024 10:40:04 OBGyn Episode Ob Episode Information Episode Created Date Number of Fetuses Patient Bloodtype Patient rh Status Prepregnancy Weight lbs Domestic Partner Domestic Partner Phone Father Name Bit Sharpener Status 06/19/20 19 1 CLOSED Fetus Data First Name Last Name Admitted to NICU Weight (g) Sex Living Outcome Pediatric Complications Fetus ID Race Codes Race Delivery Type Full Term [id number] Nathanael Calculation Initial Nathanael Date Initial Exam Date Initial Exam Provider Initial Ultrasound Date Last Menstrual Period Date Ultra Sound Weeks Gestation 0 Eighteen To Twenty Week Nathanael Update Ultra Sound Date Fundal Height At Umbil Quickening Date Ultra Sound Latest Weeks Gestation Final Nathanael Confirmed By Final Nathanael Confirmed Date Final Nathanael Date Ultra Sound Latest Days Gestation 0 0 Menstrual History Last Menstrual Date Menses Monthly On Bcp Conception Prior Menses Frequency Hcg Plus Date Menarche Onset Age Delivery Information Delivery Date Delivery Type Labor Anesthesia Weeks Gestation Incision Type Labor Labor Length Hrs Delivered By Post Complications Tubal Sterilization Discharge Date Comments 0 Discharge Information Feeding Method Contraceptive Method Maternal HG B and HCT Levels Ob Episode Information Episode Created Date Number of Fetuses Patient Bloodtype Patient rh Status Prepregnancy Weight lbs Domestic Partner Domestic Partner Phone Father Name Bit Sharpener Status 06/19/20 19 1 CLOSED Fetus Data First Name Last Name Admitted to NICU Weight (g) Sex Living Outcome Pediatric Complications Fetus ID Race Codes Race Delivery Type Full Term [id number] Nathanael Calculation Initial Nathanael Date Initial Exam Date Initial Exam Provider Initial Ultrasound Date Last Menstrual Period Date Ultra Sound Weeks Gestation 0 Eighteen To Twenty Week Nathanael Update Ultra Sound Date Fundal Height At Umbil Quickening Date Ultra Sound Latest Weeks Gestation Final Nathanael Confirmed By Final Nathanael Confirmed Date Final Nathanael Date Ultra Sound Latest Days Gestation 0 0 Menstrual History Last Menstrual Date Menses Monthly On Bcp Conception Prior Menses Frequency Hcg Plus Date Menarche Onset Age Delivery Information Delivery Date Delivery Type Labor Anesthesia Weeks Gestation Incision Type Labor Labor Length Hrs Delivered By Post Complications Tubal Sterilization Discharge Date Comments 3 Discharge Information Feeding Method Contraceptive Method Maternal HG B and HCT Levels
--- OUTSIDE RECORDS SUMMARY | 2024-10-16 22:38 | XMS_ITS ---
Author Organization [facility] Address [address] [place] [address] Care Team Providers Care Property Management Assistant Name Role Phone Richardson Correa Primary Care Provider + Richardson Correa Unavailable [phone] Aris Meyer MD Unavailable Ghanshyam Calixto DO Unavailable [phone] Domingo Bearden MD Unavailable [phone] Ebony Masters MD Unavailable [phone] Active Problems Problem Noted Date Diagnosed Date Personal history of radiation therapy 12/26/2021 Malignant neoplasm of upper- outer quadrant of left breast in female, estrogen receptor positive 08/31/2021 Cancer Staging:Clinical stage from 05/26/2021:Stage IB(cT2, cN0, cM0, G2, ER+, ME+, HER2-) - Signed by Ebony Masters MD on 08/31/2021 Pathologic stage from 09/26/2021:Stage IA(pT1b, pN0(sn), cM0, G2, ER+, ME+, HER2-) - Signed by Ebony Masters MD [...]
--- OUTSIDE RECORDS SUMMARY | 2024-10-16 22:38 | XMS_ITS | Clinical Summary ---
Author Organization [facility] Address [facility] [place] [address] [place] [address] Care Team Providers Care Database Coordinator Name Role Phone Richardson Correa Primary Care [...] Comments Blood Pressure 167/88 09/26/2021 4:12 PM MUSIC BOX MECHANIC Pulse 99 09/26/2021 4:12 PM MUSIC BOX MECHANIC Temperature 37 ??C (98.6 ??F) 09/26/2021 4:12 PM MUSIC BOX MECHANIC Respiratory Rate 20 09/26/2021 4:12 PM MUSIC BOX MECHANIC Oxygen Saturation 93% 09/26/2021 4:12 PM MUSIC BOX MECHANIC Inhaled Oxygen Concentration - - Weight 88.4 kg (194 lb 14.2 oz) 022 11:00 AM MUSIC BOX MECHANIC Height 154.9 cm (5' 1) 09/26/2021 11:0 0 AM MUSIC BOX MECHANIC Body Mass Index 36.82 09/26/2021 11:00 AM MUSIC BOX MECHANIC Plan of Treatment Health Maintenance Due Date [...] patient's age to complete this topic Insurance [facility] [place] [address] Care Teams Database Coordinator Relationship Specialty Start Date End Date Richardson Correa PA PCP - General 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
--- OUTSIDE RECORDS SUMMARY | 2024-10-16 22:38 | XMS_ITS | Clinical Summary ---
Author Organization [facility] Address [address] [place] [address] Care Team Providers Care Tank Operator Name Role Phone Richardson Correa Primary Care Provider + Richardson Correa Unavailable [phone] Aris Meyer MD Unavailable Ghanshyam Calixto DO Unavailable [phone] Domingo Bearden MD Unavailable [phone] Ebony Masters MD Unavailable [phone] Allergies No known active allergies Medications diclofenac [...] from 05/26/2021:Stage IB(cT2, cN0, cM0, G2, ER+, HI+, HER2-) - Signed by Ebony Masters MD on 08/31/2021 Pathologic stage from 09/26/2021:Stage IA(pT1b, pN0(sn), cM0, G2, ER+, HI+, HER2-) - Signed by Ebony Masters MD on 10/12/2021 Malignant neoplasm of upper- outer quadrant of left breast in female, estrogen receptor positive 08/10/2021 Immunizations Name Administration Dates Next Due Moderna SARS-CoV-2 Monovalen t Vaccination (12+ YRS) 07/18/2021,12/27/2020,11/30/2020 Pneumococcal Conjugate PCV 13 08/12/2021 Surgical History Surgery Date Site/Laterality Comments HYSTERECTOMY HI LIG/TRNSXJ FLP TUBE ABDL/VAG APPR UNI/BI Tubal Ligation - (Added by TW Conv) HI SALPINGO-OOPHORECTOMY COMPL/PRTL UNI/BI SPX Salpingo-oophorectomy Left Side - (Added by TW Conv) HI COLPOPEXY ABDOMINAL APPROACH Vaginal Surgery Colpopexy Abdominal [...] on file 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 Gender Identity Not on file Sexual Orientation [...] or Tdap) 02/02/2026 02/03/2016 Insurance [employer] [facility] Address: [facility] [address] [place] [id number] [employer] [facility] Address: [address] [address] [place] [id number] Care Teams Tank Operator Relationship Specialty [place] [address] [place] [id number] PCP - General Internal Medicine 08/31/21 [place] [address] [place] [address] Internal Medicine 08/31/21 Aris Meyer MD [address] [place] [address] Consulting Physician Cardiology 08/31/21 Ghanshyam Calixto DO [address] [place] [address] [id number] Medical Oncologist/Planetarium Technician Hematology and Oncology 08/31/21 Domingo Bearden MD [address] [place] [address] [address] [place] [address] Surgeon General Surgery 08/31/21 Ebony Masters MD [facility] [address] [place] [address] Radiation Oncologist Radiation Oncology 05/14/24
--- OUTSIDE RECORDS SUMMARY | 2024-10-16 22:38 | XMS_ITS | Referral Summary ---
Author Organization [facility] Address [address] [place] [address] Care Team Providers Care Intake Assessor Name Role Phone Richardson Correa Primary Care Provider + Richardson Correa Unavailable [phone] Aris Meyer MD Unavailable Ghanshyam Calixto DO Unavailable [phone] Domingo Bearden MD Unavailable [phone] Ebony Masters MD Unavailable [phone] Allergies No known active allergies Medications diclofenac [...] from 05/26/2021:Stage IB(cT2, cN0, cM0, G2, ER+, [place]+, HER2-) - Signed by Ebony Masters MD on 08/31/2021 Pathologic stage from 09/26/2021:Stage IA(pT1b, pN0(sn), cM0, G2, ER+, [place]+, HER2-) - Signed by Ebony Masters MD [...] on file 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 Gender Identity Not on file Sexual Orientation [...] Insurance [employer] Care Teams Intake Assessor Relationship Specialty [place] [address] [place] [address] [phone] PCP - General Internal Medicine 08/31/21 Richardson Correa PA [address] [place] [address] [phone] Internal Medicine 08/31/21 Aris Meyer MD [address] [place] [address] Consulting Physician Cardiology 08/31/21 Ghanshyam Calixto DO [address] [address] Medical Oncologist/Emergency Crew Supervisor Hematology and Oncology 08/31/21 Domingo Bearden MD [address] [facility] [address] [place] [address] Surgeon General Surgery 08/31/21 Ebony Masters MD [address] [facility] [address] [place] [address] Radiation Oncologist Radiation Oncology 05/14/24
[2024-10-17] VITALS (9 sets, daily range): BP systolic 131–149; BP diastolic 61–78; PULSE 11–107; RESP 16–18; TEMP 36.7–37.5; O2SAT 90–95
[2024-10-17] MEDS: metroNIDAZOLE 500 MG/ISO 100ML 500 MG/100 ML BAG 100 MG IVPB ×3 (06:02→20:47)
[2024-10-17 06:05] LABS: Basophils Percent Auto 0.2 % (0.2-1.2); Eosinophils Absolute Auto 0.1 K/mm3 (0-0.3); Eosinophils Percent Auto 0.7 % (0-4.4); Hematocrit 33.4 % (37.0-47.0); Immature Granulocyte Absolute 0.05 K/mm3 (0.00-0.031); Immature Granulocyte Percent A 0.3 % (0-0.5); Lymphocytes Absolute Auto 1.69 K/mm3 (0.9-3.2); Lymphocytes Percent Auto 11.3 % (18.3-44.2); Mean Corpuscular HGB Conc 32.9 g/dl (32-36); Mean Corpuscular Hemoglobin 28.4 pg (26-34); Mean Corpuscular Volume 86.3 fl (80-100); Mean Platelet Volume 10.1 fl (7.4-10.4); Monocytes Percent Auto 6.4 % (2.6-8.5); Neutrophils Absolute Auto 12.1 K/mm3 (1.3-6.7); Neutrophils Percent Auto 81.1 % (45.5-73.1); Platelet Count Result 215 k/mm3 (150-375); Red Blood Count 3.87 M/mm3 (4.2-5.4); Red Cell Distribution Width 12.2 % (11.5-14.5)
[2024-10-17 06:33] LABS: Alanine Aminotransferase 14 U/L (6-35); Albumin Level 3.4 g/dL (3.5-5.1); Alkaline Phosphatase 81 U/L (38-126); Anion Gap 8 mmol/L (4-12); Aspartate Amino Transferase 23 U/L (14-36); Blood Urea Nitrogen 11 mg/dL (7-17); Calcium 8.2 mg/dL (8.4-10.2); Carbon Dioxide 29 mmol/L (22-30); Chloride 99 mmol/L (98-107); Estimated CRCL calculation 94 ml/min; Estimated Glomerular Filt Rate > 60; Glucose 129 mg/dL (65-110); Magnesium 1.8 mg/dL (1.6-2.3); Potassium 2.5 mmol/L (3.4-5.0); Sodium 136 mmol/L (137-145)
--- NOTE | 2024-10-17 07:21 | P.PNGI_ITS ---
Progress Note: A&P Assessment and Plan (1) Right sided abdominal pain: Code(s): R10.9 - Unspecified abdominal pain Status: Acute Assessment and Plan: Patient with an acute inflammatory process in the area of the right upper quadrant, presumably right-sided diverticulitis. Receiving antibiotics and improving white count. Will continue same regimen and continue to monitor clinically. Subjective Date/time seen: 10/17/24 07:21 Interval history: the patient still experiences pain when coughing, sitting up or straining for defecation. There is no fever. Her white count today is improving, 15,000 leukocytes. Objective Data Vital Signs Vital Signs: Vital Signs - 24 hr 10/16/24 08:03 10/16/24 08:03 10/16/24 12:01 Temperature Pulse Rate 97 102 H Respiratory Rate Blood Pressure Pulse Oximetry Oxygen Delivery Room Air 10/16/24 14:00 10/16/24 16:46 10/16/24 20:00 Temperature 98.2 F Pulse Rate 105 H 117 H Respiratory Rate 20 Blood Pressure 146/68 H Pulse Oximetry 91 Oxygen Delivery Room Air 10/16/24 20:00 10/16/24 22:00 10/17/24 00:00 Temperature 98.4 F Pulse Rate 102 H 100 93 Respiratory Rate 18 Blood Pressure 153/64 H Pulse Oximetry 90 Oxygen Delivery 10/17/24 04:00 10/17/24 06:00 Temperature 98.9 F Pulse Rate 97 100 Respiratory Rate 18 Blood Pressure 131/61 Pulse Oximetry 90 Oxygen Delivery Intake/Output Intake/Output: Intake & Output 10/14/24 10/15/24 10/16/24 10/17/24 23:59 23:59 23:59 23:59 Intake Total 2340 2980 Balance 2340 2980 Meds/Results Medications: Active Medications Generic Name Dose Route Start Last Admin Trade Name Freq PRN Reason Stop Dose Admin Acetaminophen 650 mg 10/15/24 11:39 10/16/24 18:05 Acetaminophen 325 Mg Tablet PO 650 mg Q4H PRN Administration Mild Pain (1-3) or Fever Enoxaparin Sodium 40 mg 10/16/24 09:00 10/16/24 10:03 Enoxaparin 40 Mg/0.4 Ml Syringe SUB-Q 40 mg DAILY FLORINDA Administration Ceftriaxone Sodium 1 gm in 50 mls @ 100 mls/hr 10/16/24 12:00 10/16/24 11:53 Rocephin 1 Gm/Ns 50 Ml IVPB Infused Q24H FLORINDA Infusion Metronidazole 500 mg in 100 mls @ 100 mls/hr 10/15/24 22:00 10/17/24 06:02 Flagyl 500 Mg/Iso Soln 100 Ml IVPB 100 mls/hr Q8H FLORINDA Administration Potassium Chloride 40 meq/ 520 mls @ 130 mls/hr 10/17/24 06:58 Sodium Chloride IVPB 10/17/24 10:57 ONCE ONE Morphine Sulfate 4 mg 10/15/24 11:39 10/16/24 20:16 Morphine Sulfate (*Crx) 4 Mg/Ml Inj IV PUSH 4 mg Q2H PRN Administration Pain Rated 7-10 Ondansetron HCl 4 mg 10/15/24 11:39 Ondansetron Inj 4 Mg/2 Ml Vial IV PUSH Q4H PRN Nausea Radiology Results: ITS Impressions Abdomen/Pelvis CT 10/15/24 10:33 IMPRESSION: 1. Wall thickening at the hepatic flexure the colon with prominent surrounding inflammatory stranding without abscess or free intraperitoneal gas which could be due to radiographically uncomplicated focal colitis, diverticulitis or malignancy. Recommend colonoscopy for further evaluation. 2. Indeterminate 1.2 cm soft tissue density lesion at the lower pole the right kidney which could represent renal cell carcinoma or a complex proteinaceous/hemorrhagic cyst. Recommend further evaluation with pre and postcontrast MRI or CT. 3. Small sliding-type hiatal hernia. 4. Cholelithiasis. 5. Mild aortocaval lymphadenopathy most likely reactive although could not exclude metastatic disease in the setting of malignancy. Labs Labs: Laboratory Results - last 24 hr 10/17/24 05:47 WBC 15.0 H RBC 3.87 L Hgb 11.0 L Hct 33.4 L MCV 86.3 MCH 28.4 MCHC 32.9 RDW 12.2 Plt Count 215 MPV 10.1 Immature Gran % (Auto) 0.3 Neut % (Auto) 81.1 H Lymph % (Auto) 11.3 L [place] % (Auto) 6.4 Eos % (Auto) 0.7 Baso % (Auto) 0.2 Lymph # (Auto) 1.69 [place] # (Auto) 1.0 H Eos # (Auto) 0.1 Baso # (Auto) 0.0 Abs Immat Gran (auto) 0.05 H Absolute Neuts (auto) 12.1 H Absolute Nucleated RBC 0.000 Nucleated RBC % 0.0 Sodium 136 L Potassium 2.5 L* Chloride 99 Carbon Dioxide 29 Anion Gap 8 BUN 11 Creatinine 0.49 L Estim Creat Clear Calc 94 Estimated GFR > 60 Glucose 129 H Calcium 8.2 L Magnesium 1.8 Total Bilirubin 1.0 AST 23 ALT 14 Alkaline Phosphatase 81 Total Protein 6.0 L Albumin 3.4 L
--- NOTE | 2024-10-17 07:24 | P.PNGI_ITS ---
Progress Note: A&P Assessment and Plan (1) Right sided abdominal pain: Code(s): R10.9 - Unspecified abdominal pain Status: Acute Assessment and Plan: Will order right upper quadrant sonogram for today, to evaluate gallbladder. the CT scan showed normal gallbladder bowers but the presence of gallstones. Subjective Date/time seen: 10/17/24 07:24 Objective Data Vital Signs Vital Signs: Vital Signs - 24 hr 10/16/24 08:03 10/16/24 08:03 10/16/24 12:01 Temperature Pulse Rate 97 102 H Respiratory Rate Blood Pressure Pulse Oximetry Oxygen Delivery Room Air 10/16/24 14:00 10/16/24 16:46 10/16/24 20:00 Temperature 98.2 F Pulse Rate 105 H 117 H Respiratory Rate 20 Blood Pressure 146/68 H Pulse Oximetry 91 Oxygen Delivery Room Air 10/16/24 20:00 10/16/24 22:00 10/17/24 00:00 Temperature 98.4 F Pulse Rate 102 H 100 93 Respiratory Rate 18 Blood Pressure 153/64 H Pulse Oximetry 90 Oxygen Delivery 10/17/24 04:00 10/17/24 06:00 Temperature 98.9 F Pulse Rate 97 100 Respiratory Rate 18 Blood Pressure 131/61 Pulse Oximetry 90 Oxygen Delivery Intake/Output Intake/Output: Intake & Output 10/14/24 10/15/24 10/16/24 10/17/24 23:59 23:59 23:59 23:59 Intake Total 2340 2980 Balance 2340 2980 Meds/Results Medications: Active Medications Generic Name Dose Route Start Last Admin Trade Name Freq PRN Reason Stop Dose Admin Acetaminophen 650 mg 10/15/24 11:39 10/16/24 18:05 Acetaminophen 325 Mg Tablet PO 650 mg Q4H PRN Administration Mild Pain (1-3) or Fever Enoxaparin Sodium 40 mg 10/16/24 09:00 10/16/24 10:03 Enoxaparin 40 Mg/0.4 Ml Syringe SUB-Q 40 mg DAILY FLORINDA Administration Ceftriaxone Sodium 1 gm in 50 mls @ 100 mls/hr 10/16/24 12:00 10/16/24 11:53 Rocephin 1 Gm/Ns 50 Ml IVPB Infused Q24H FLORINDA Infusion Metronidazole 500 mg in 100 mls @ 100 mls/hr 10/15/24 22:00 10/17/24 06:02 Flagyl 500 Mg/Iso Soln 100 Ml IVPB 100 mls/hr Q8H FLORINDA Administration Potassium Chloride 40 meq/ 520 mls @ 130 mls/hr 10/17/24 06:58 Sodium Chloride IVPB 10/17/24 10:57 ONCE ONE Morphine Sulfate 4 mg 10/15/24 11:39 10/16/24 20:16 Morphine Sulfate (*Crx) 4 Mg/Ml Inj IV PUSH 4 mg Q2H PRN Administration Pain Rated 7-10 Ondansetron HCl 4 mg 10/15/24 11:39 Ondansetron Inj 4 Mg/2 Ml Vial IV PUSH Q4H PRN Nausea Radiology Results: ITS Impressions Abdomen/Pelvis CT 10/15/24 10:33 IMPRESSION: 1. Wall thickening at the hepatic flexure the colon with prominent surrounding inflammatory stranding without abscess or free intraperitoneal gas which could be due to radiographically uncomplicated focal colitis, diverticulitis or malignancy. Recommend colonoscopy for further evaluation. 2. Indeterminate 1.2 cm soft tissue density lesion at the lower pole the right kidney which could represent renal cell carcinoma or a complex proteinaceous/hemorrhagic cyst. Recommend further evaluation with pre and postcontrast MRI or CT. 3. Small sliding-type hiatal hernia. 4. Cholelithiasis. 5. Mild aortocaval lymphadenopathy most likely reactive although could not exclude metastatic disease in the setting of malignancy. Labs Labs: Laboratory Results - last 24 hr 10/17/24 05:47 WBC 15.0 H RBC 3.87 L Hgb 11.0 L Hct 33.4 L MCV 86.3 MCH 28.4 MCHC 32.9 RDW 12.2 Plt Count 215 MPV 10.1 Immature Gran % (Auto) 0.3 Neut % (Auto) 81.1 H Lymph % (Auto) 11.3 L [place] % (Auto) 6.4 Eos % (Auto) 0.7 Baso % (Auto) 0.2 Lymph # (Auto) 1.69 [place] # (Auto) 1.0 H Eos # (Auto) 0.1 Baso # (Auto) 0.0 Abs Immat Gran (auto) 0.05 H Absolute Neuts (auto) 12.1 H Absolute Nucleated RBC 0.000 Nucleated RBC % 0.0 Sodium 136 L Potassium 2.5 L* Chloride 99 Carbon Dioxide 29 Anion Gap 8 BUN 11 Creatinine 0.49 L Estim Creat Clear Calc 94 Estimated GFR > 60 Glucose 129 H Calcium 8.2 L Magnesium 1.8 Total Bilirubin 1.0 AST 23 ALT 14 Alkaline Phosphatase 81 Total Protein 6.0 L Albumin 3.4 L
--- NOTE | 2024-10-17 07:50 | PC.NURSE ---
To Radiology per wheelchair
[2024-10-17] MEDS: MAGNESIUM SULF 1 GM/D5W 100 ML 1 GM/100 ML BAG IVPB (08:37)
[2024-10-17] MEDS: POTASSIUM CHLORIDE 20 MEQ ER TABLET 80 MEQ PO (08:37)
[2024-10-17] MEDS: ENOXAPARIN 40 MG/0.4 ML SYRINGE SUB-Q (08:38)
[2024-10-17] MEDS: POTASSIUM CHLORIDE INJ 40 MEQ in SODIUM CHLORIDE 0.9% IV 500 ML 130 MEQ IVPB (09:41)
--- NOTE | 2024-10-17 10:10 | P.PNIM_ITS ---
Progress Note: A&P Assessment and Plan (1) Colitis: Code(s): K52.9 - Noninfective gastroenteritis and colitis, unspecified Status: Acute Plan Sepsis from colitis resolved, WBC down 15 from 23.5 vomiting resolved and abd pain improving monitor blood cultures. tolerating diet Monitor. Colitis Rule out malignancy CT abdomen pelvis reviewed. US liver no cholecystitis Continue above treatment. GI eval noted Hypokalemia K 2.5, Mg 1.8 replaced and monitor History of breast and cervical cancer Monitor Hypertension Titrate medication clinical course. DVT prophylaxis Sq Lovenox Subjective Date/time seen: 10/17/24 10:10 Interval history: patient noted she is feeling better and WBC improving, 15 today K 2.5, US liver no cholecystitis Review of Systems Review of Systems: All other systems are reviewed and negative except as noted in the history above. Exam Narrative: General: alert and comfortable Eyes: EOMI, PERRLA ENNT External ears normal, Neck is supple, no masses, Respiratory systems: Clear to auscultation Cardiovascular S1, S2, normal rhythm, no murmur, rub, or gallop; no thrill or palpable murmurs on palpation. Gastrointestinal: soft, RLQ tenderness, and non-distended abdomen with no masses; BS present Skin: no rash, lesions, ulcerations, subcutaneous nodules or induration Musculoskeletal: no abnormality and no tenderness, normal ROM Neurologic: Alert and oriented x3, non focal Mental Status Exam: normal affect Objective Data Vital Signs Vital Signs: Vital Signs - 24 hr 10/16/24 12:01 10/16/24 14:00 10/16/24 16:46 Temperature 98.2 F Pulse Rate 102 H 105 H 117 H Respiratory Rate 20 Blood Pressure 146/68 H Pulse Oximetry 91 Oxygen Delivery 10/16/24 20:00 10/16/24 20:00 10/16/24 22:00 Temperature 98.4 F Pulse Rate 102 H 100 Respiratory Rate 18 Blood Pressure 153/64 H Pulse Oximetry 90 Oxygen Delivery Room Air 10/17/24 00:00 10/17/24 04:00 10/17/24 06:00 Temperature 98.9 F Pulse Rate 93 97 100 Respiratory Rate 18 Blood Pressure 131/61 Pulse Oximetry 90 Oxygen Delivery Intake/Output Intake/Output: Intake & Output 10/14/24 10/15/24 10/16/24 10/17/24 23:59 23:59 23:59 23:59 Intake Total 2340 2980 Balance 2340 2980 Meds/Results Medications: Active Medications Generic Name Dose Route Start Last Admin Trade Name Freq PRN Reason Stop Dose Admin Acetaminophen 650 mg 10/15/24 11:39 10/16/24 18:05 Acetaminophen 325 Mg Tablet PO 650 mg Q4H PRN Administration Mild Pain (1-3) or Fever Enoxaparin Sodium 40 mg 10/16/24 09:00 10/17/24 08:38 Enoxaparin 40 Mg/0.4 Ml Syringe SUB-Q 40 mg DAILY FLORINDA Administration Ceftriaxone Sodium 1 gm in 50 mls @ 100 mls/hr 10/16/24 12:00 10/16/24 11:53 Rocephin 1 Gm/Ns 50 Ml IVPB Infused Q24H FLORINDA Infusion Metronidazole 500 mg in 100 mls @ 100 mls/hr 10/15/24 22:00 10/17/24 06:02 Flagyl 500 Mg/Iso Soln 100 Ml IVPB 100 mls/hr Q8H FLORINDA Administration Potassium Chloride 40 meq/ 520 mls @ 130 mls/hr 10/17/24 06:58 10/17/24 09:41 Sodium Chloride IVPB 10/17/24 10:57 130 mls/hr ONCE ONE Administration Morphine Sulfate 4 mg 10/15/24 11:39 10/16/24 20:16 Morphine Sulfate (*Crx) 4 Mg/Ml Inj IV PUSH 4 mg Q2H PRN Administration Pain Rated 7-10 Ondansetron HCl 4 mg 10/15/24 11:39 Ondansetron Inj 4 Mg/2 Ml Vial IV PUSH Q4H PRN Nausea Radiology Results: ITS Impressions Abdomen/Pelvis CT 10/15/24 10:33 IMPRESSION: 1. Wall thickening at the hepatic flexure the colon with prominent surrounding inflammatory stranding without abscess or free intraperitoneal gas which could be due to radiographically uncomplicated focal colitis, diverticulitis or malignancy. Recommend colonoscopy for further evaluation. 2. Indeterminate 1.2 cm soft tissue density lesion at the lower pole the right kidney which could represent renal cell carcinoma or a complex proteinaceous/hemorrhagic cyst. Recommend further evaluation with pre and postcontrast MRI or CT. 3. Small sliding-type hiatal hernia. 4. Cholelithiasis. 5. Mild aortocaval lymphadenopathy most likely reactive although could not exclude metastatic disease in the setting of malignancy. Abdomen Ultrasound 10/17/24 08:30 IMPRESSION: 1. Diffuse hepatic steatosis. 2. Cholelithiasis. No evidence of acute cholecystitis. Labs Labs: Laboratory Results - last 24 hr 10/17/24 05:47 WBC 15.0 H RBC 3.87 L Hgb 11.0 L Hct 33.4 L MCV 86.3 MCH 28.4 MCHC 32.9 RDW 12.2 Plt Count 215 MPV 10.1 Immature Gran % (Auto) 0.3 Neut % (Auto) 81.1 H Lymph % (Auto) 11.3 L [place] % (Auto) 6.4 Eos % (Auto) 0.7 Baso % (Auto) 0.2 Lymph # (Auto) 1.69 [place] # (Auto) 1.0 H Eos # (Auto) 0.1 Baso # (Auto) 0.0 Abs Immat Gran (auto) 0.05 H Absolute Neuts (auto) 12.1 H Absolute Nucleated RBC 0.000 Nucleated RBC % 0.0 Sodium 136 L Potassium 2.5 L* Chloride 99 Carbon Dioxide 29 Anion Gap 8 BUN 11 Creatinine 0.49 L Estim Creat Clear Calc 94 Estimated GFR > 60 Glucose 129 H Calcium 8.2 L Magnesium 1.8 Total Bilirubin 1.0 AST 23 ALT 14 Alkaline Phosphatase 81 Total Protein 6.0 L Albumin 3.4 L
[2024-10-17 15:44] LABS: Potassium 3.2 mmol/L (3.4-5.0)
[2024-10-17] MEDS: ONDANSETRON INJ 4 MG/2 ML VIAL IV PUSH (17:27)
[2024-10-17] MEDS: ACETAMINOPHEN 325 MG TABLET 650 MG PO (22:47)
[2024-10-18] VITALS: PULSE 90
[2024-10-18 04:00] VITALS: PULSE 83
[2024-10-18 04:45] VITALS: BP 137/70; PULSE 86; RESP 16; TEMP 36; O2SAT 97
[2024-10-18 05:22] LABS: Basophils Percent Auto 0.2 % (0.2-1.2); Eosinophils Absolute Auto 0.2 K/mm3 (0-0.3); Eosinophils Percent Auto 1.7 % (0-4.4); Hematocrit 36.8 % (37.0-47.0); Hemoglobin 11.6 g/dL (12.0-15.0); Immature Granulocyte Absolute 0.05 K/mm3 (0.00-0.031); Immature Granulocyte Percent A 0.4 % (0-0.5); Lymphocytes Percent Auto 16.9 % (18.3-44.2); Mean Corpuscular HGB Conc 31.5 g/dl (32-36); Mean Corpuscular Hemoglobin 28.3 pg (26-34); Mean Corpuscular Volume 89.8 fl (80-100); Monocytes Absolute Auto 0.9 K/mm3 (0.1-0.6); Monocytes Percent Auto 7.5 % (2.6-8.5); Neutrophils Absolute Auto 8.3 K/mm3 (1.3-6.7); Neutrophils Percent Auto 73.3 % (45.5-73.1); Platelet Count Result 252 k/mm3 (150-375); Red Cell Distribution Width 12.2 % (11.5-14.5); White Blood Count 11.3 K/mm3 (4.5-10.0)
[2024-10-18 05:38] LABS: Alanine Aminotransferase 17 U/L (6-35); Albumin Level 3.6 g/dL (3.5-5.1); Alkaline Phosphatase 86 U/L (38-126); Anion Gap 6 mmol/L (4-12); Aspartate Amino Transferase 25 U/L (14-36); Bilirubin,Total 0.7 mg/dL (0.2-1.3); Blood Urea Nitrogen 10 mg/dL (7-17); Calcium 8.3 mg/dL (8.4-10.2); Carbon Dioxide 29 mmol/L (22-30); Chloride 102 mmol/L (98-107); Estimated CRCL calculation 89 ml/min; Estimated Glomerular Filt Rate > 60; Glucose 124 mg/dL (65-110); Magnesium 2.2 mg/dL (1.6-2.3); Potassium 3.3 mmol/L (3.4-5.0); Sodium 137 mmol/L (137-145)
[2024-10-18] MEDS: metroNIDAZOLE 500 MG/ISO 100ML 500 MG/100 ML BAG 100 MG IVPB (05:41)
[2024-10-18 08:00] VITALS: PULSE 92
--- NOTE | 2024-10-18 09:01 | WPDGIPROGNO ---
Progress Note: A&P Assessment and Plan (1) Right sided abdominal pain: Code(s): R10.9 - Unspecified abdominal pain Status: Acute (2) Colitis: Code(s): K52.9 - Noninfective gastroenteritis and colitis, unspecified Status: Acute Assessment and Plan: better with abx ultrasound reviewed, fatty liver, cholelithiasis without inflammation (3) Hypokalemia: Code(s): E87.6 - Hypokalemia Status: Acute Assessment and Plan: replacing (4) Leukocytosis: Code(s): D72.829 - Elevated white blood cell count, unspecified Status: Acute Assessment and Plan: trending down, on abx probably home tomorrow if pain better and wbd keeps trending down (5) Nausea and vomiting in adult: Code(s): R11.2 - Nausea with vomiting, unspecified Status: Acute Assessment and Plan: antiemetics prn diet as tolerated Subjective Date/time seen: 10/18/24 09:01 Interval history: today had emesis x1 after eating regular food but today better, more comfortable with less pain wbc trending down Review of Systems Review of Systems: All systems reviewed & are unremarkable except as noted in HPI and below Exam Const: General: comfortable and no acute distress HENMT: Face/Nose/Sinus: Normal nares present Eyes: General: appearance normal, both eyes and all related structures Neck: Neck: supple Resp: Auscultation: clear to auscultation bilaterally Cardio: Rate: regular rate Rhythm: regular rhythm GI: Inspection: non-distended GI Palp: Yes Soft to palpation and Yes Tenderness to palpation present (GI) (mild ttp in ruq, no rebound) Auscultation: normal bowel sounds Skin: General skin exam: normal color Neuro: Speech: normal speech Motor exam (neuro): 5/5 motor strength present throughout Extrem: General: normal to inspection Psych: Mental Status: mental status grossly normal Objective Data Vital Signs Vital Signs: Vital Signs - 24 hr 10/17/24 12:00 10/17/24 14:00 10/17/24 16:00 Temperature 98.1 F Pulse Rate 85 107 H 11 L Respiratory Rate 18 Blood Pressure 148/78 H Pulse Oximetry 95 Oxygen Delivery 10/17/24 19:46 10/17/24 20:00 10/17/24 20:00 Temperature 99.5 F Pulse Rate 101 H 101 H Respiratory Rate 16 Blood Pressure 149/73 H Pulse Oximetry 92 Oxygen Delivery Room Air 10/18/24 00:00 10/18/24 04:00 10/18/24 04:45 Temperature 96.8 F L Pulse Rate 90 83 86 Respiratory Rate 16 Blood Pressure 137/70 Pulse Oximetry 97 Oxygen Delivery Intake/Output Intake/Output: Intake & Output 10/15/24 10/16/24 10/17/24 10/18/24 23:59 23:59 23:59 23:59 Intake Total 2340 2980 1690 400 Output Total 3 Balance 2340 2980 1690 397 Meds/Results Medications: Active Medications Generic Name Dose Route Start Last Admin Trade Name Freq PRN Reason Stop Dose Admin Acetaminophen 650 mg 10/15/24 11:39 10/17/24 22:47 Acetaminophen 325 Mg Tablet PO 650 mg Q4H PRN Administration Mild Pain (1-3) or Fever Enoxaparin Sodium 40 mg 10/16/24 09:00 10/17/24 08:38 Enoxaparin 40 Mg/0.4 Ml Syringe SUB-Q 40 mg DAILY FLORINDA Administration Ceftriaxone Sodium 1 gm in 50 mls @ 100 mls/hr 10/16/24 12:00 10/17/24 13:25 Rocephin 1 Gm/Ns 50 Ml IVPB Infused Q24H FLORINDA Infusion Metronidazole 500 mg in 100 mls @ 100 mls/hr 10/15/24 22:00 10/18/24 06:43 Flagyl 500 Mg/Iso Soln 100 Ml IVPB Infused Q8H FLORINDA Infusion Morphine Sulfate 4 mg 10/15/24 11:39 10/16/24 20:16 Morphine Sulfate (*Crx) 4 Mg/Ml Inj IV PUSH 4 mg Q2H PRN Administration Pain Rated 7-10 Ondansetron HCl 4 mg 10/15/24 11:39 10/17/24 17:27 Ondansetron Inj 4 Mg/2 Ml Vial IV PUSH 4 mg Q4H PRN Administration Nausea Radiology Results: ITS Impressions Abdomen/Pelvis CT 10/15/24 10:33 IMPRESSION: 1. Wall thickening at the hepatic flexure the colon with prominent surrounding inflammatory stranding without abscess or free intraperitoneal gas which could be due to radiographically uncomplicated focal colitis, diverticulitis or malignancy. Recommend colonoscopy for further evaluation. 2. Indeterminate 1.2 cm soft tissue density lesion at the lower pole the right kidney which could represent renal cell carcinoma or a complex proteinaceous/hemorrhagic cyst. Recommend further evaluation with pre and postcontrast MRI or CT. 3. Small sliding-type hiatal hernia. 4. Cholelithiasis. 5. Mild aortocaval lymphadenopathy most likely reactive although could not exclude metastatic disease in the setting of malignancy. Abdomen Ultrasound 10/17/24 08:30 IMPRESSION: 1. Diffuse hepatic steatosis. 2. Cholelithiasis. No evidence of acute cholecystitis. Labs Labs: Laboratory Results - last 24 hr 10/17/24 10/18/24 15:32 04:53 WBC 11.3 H RBC 4.10 L Hgb 11.6 L Hct 36.8 L MCV 89.8 MCH 28.3 MCHC 31.5 L RDW 12.2 Plt Count 252 MPV 10.0 Immature Gran % (Auto) 0.4 Neut % (Auto) 73.3 H Lymph % (Auto) 16.9 L [place] % (Auto) 7.5 Eos % (Auto) 1.7 Baso % (Auto) 0.2 Lymph # (Auto) 1.90 [place] # (Auto) 0.9 H Eos # (Auto) 0.2 Baso # (Auto) 0.0 Abs Immat Gran (auto) 0.05 H Absolute Neuts (auto) 8.3 H Absolute Nucleated RBC 0.000 Nucleated RBC % 0.0 Sodium 137 Potassium 3.2 L 3.3 L Chloride 102 Carbon Dioxide 29 Anion Gap 6 BUN 10 Creatinine 0.52 L Estim Creat Clear Calc 89 Estimated GFR > 60 Glucose 124 H Calcium 8.3 L Magnesium 2.2 Total Bilirubin 0.7 AST 25 ALT 17 Alkaline Phosphatase 86 Total Protein 7.0 Albumin 3.6
[2024-10-18] MEDS: ENOXAPARIN 40 MG/0.4 ML SYRINGE SUB-Q (09:05)
[2024-10-18 12:00] VITALS: PULSE 107
--- NOTE | 2024-10-18 12:09 | PM.DS ---
DS: Admitting Diagnosis Discharge Date 10/18/24 Admitting Diagnosis abd pain and vomiting DS: Discharge Diagnosis Discharge Diagnosis (1) Colitis: Code(s): K52.9 - Noninfective gastroenteritis and colitis, unspecified Status: Acute (2) Sepsis: Qualifiers: Sepsis acute organ dysfunction status: unspecified Sepsis type: sepsis due to unspecified organism Qualified Code(s): A41.9 - Sepsis, unspecified organism Code(s): A41.9 - Sepsis, unspecified organism Status: Acute DS: Summary Hospital Course Hospital Course: 68-year-old male past medical history of cervical breast cancer, hypertension presented to the ER on account of vomiting and abdominal pain. Patient she stated having some pain which she described as sharp, in the right lower abdominal region associated with any vomiting patient and she vomited for most of the night which caused her to present to the ER Denies ay chest pain, SOB, dysuria, focal deficits or trauma. CT AP showed showed wall thickening at hepatic flexure the colon with prominent surrounding inflammatory stranding without abscess or free intraperitoneal gas focal colitis, diverticulitis or malignancy. WBC 23.5, K 3.2, lactic acid 3.7. patient was started on IVF, Rocephin and Flagyl. Gi consulted prior to admission. Gi was consulted and they evaluated patient and recommended 14 days antibiotics with outpatient follow up for colonoscopy. leukocytosis resolving, abd pain markedly improved, patient tolerating regular diet and having bowel movements. Sepsis resolved and cultures negative. Patient discharged on Levaquin and Flagyl to complete total of 14 days. F/u with PCP in 3-5 days F/u with GI as instructed. Time Spent with Patient Time attestation: Total time spent providing and/or coordinating discharge services: DS: Data Data Completed and Pending Labs on day of discharge: Labs from last 24 hours 10/18/24 10/17/24 04:53 15:32 WBC 11.3 H RBC 4.10 L Hgb 11.6 L Hct 36.8 L MCV 89.8 MCH 28.3 MCHC 31.5 L RDW 12.2 Plt Count 252 MPV 10.0 Immature Gran % (Auto) 0.4 Neut % (Auto) 73.3 H Lymph % (Auto) 16.9 L [place] % (Auto) 7.5 Eos % (Auto) 1.7 Baso % (Auto) 0.2 Lymph # (Auto) 1.90 [place] # (Auto) 0.9 H Eos # (Auto) 0.2 Baso # (Auto) 0.0 Abs Immat Gran (auto) 0.05 H Absolute Neuts (auto) 8.3 H Absolute Nucleated RBC 0.000 Nucleated RBC % 0.0 Sodium 137 Potassium 3.3 L 3.2 L Chloride 102 Carbon Dioxide 29 Anion Gap 6 BUN 10 Creatinine 0.52 L Estim Creat Clear Calc 89 Estimated GFR > 60 Glucose 124 H Calcium 8.3 L Magnesium 2.2 Total Bilirubin 0.7 AST 25 ALT 17 Alkaline Phosphatase 86 Total Protein 7.0 Albumin 3.6 Preliminary micro results at discharge 10/15/24 11:42 Blood Culture - Preliminary Blood 10/15/24 11:42 Blood Culture - Preliminary Blood Discharge Plan Discharge Attending physician on discharge: Ginette Adam Consulting providers: Loki Turpin Discharging Clinician: Ginette Adam Anticipated Discharge Date/Time: 10/18/24 12:00 Patient Disposition: Home, Self-Care Activity: as tolerated Diet: regular Patient Instructions: Antibiotic Form Patient Language: Italian Stand Alone Forms: General Discharge Information Follow-up/Referrals: Loki Turpin MD [Physician] - (F/u with GI as instructed ) Corwin,Emperatriz Myers MD [Primary Care Provider] - (F/u with PCP in 3-5 days ) Discharge Medications: New oxycodone-acetaminophen 7.5-325 mg tablet 1 tablet PO Q6H PRN (Reason: pain) 5 Days Qty: 7 0RF levofloxacin 750 mg tablet 750 mg PO DAILY 11 Days Qty: 11 0RF metronidazole 500 mg tablet 500 mg PO Q8H 11 Days Qty: 33 0RF Continued amlodipine 5 mg tablet 5 mg PO DAILY ezetimibe 10 mg tablet 10 mg PO DAILY losartan-hydrochlorothiazide 100-12.5 mg tablet 1 tablet PO DAILY metoprolol succinate 50 mg tablet extended release 24 hr 50 mg PO Q12H potassium chloride 10 mEq tablet extended release 10 meq PO DAILY pravastatin 40 mg tablet 40 mg PO DAILY aspirin 81 mg tablet,chewable 81 mg PO DAILY Date of admission: 10/17/24 09:19 Primary Care Provider: Corwin,Emperatriz Myers Admitting Provider: Ginette Adam Attending physician on admission: Ginette Adam Condition: Stable
[2024-10-18] MEDS: guaiFENesin/DEXTROMETHORPHAN 10 ML UDC PO (13:24)
== END 2024-10-18 13:40 | disposition home or self-care (01) | DRG 392 ==
LOC: ANHED 11:18 → ANH3MEDSUR 12:25 → ANH2MED 14:24
PROVIDERS: Emergency Medicine; Nurse Practitioner Adult Health; Admitting Provider Internal Medicine; Emergency Provider Physician Assistant; PCP Internal Medicine Gastroenterology; Visit Provider Internal Medicine
DX: K52.9 Noninfective gastroenteritis and colitis, unspecified (principal); I10 Essential (primary) hypertension; Z85.41 Personal history of malignant neoplasm of cervix uteri; Z85.3 Personal history of malignant neoplasm of breast
CPT/HCPCS: 36415; 74177; 76705; 80053; 81001; 83605; 83735; 84132; 84145; 85025; 87040; 87086; 96361; 96365; 96367; 96375; 96376; 99285; A9270; G0378; J0696; J1650; J1836; J2270; J2405; J3475; J3480; J7030; J7040; Q9967

== ENCOUNTER 2024-10-21 13:26 | Inpatient (IN) | payer MEDICARE, SELFPAY ==
--- NOTE | ~2024-10-21 | CT_ITS ---
EXAMINATION: CT abdomen pelvis w con DATE: 10/21/2024 20:36 INDICATION: Colitis. Sepsis. TECHNIQUE: Computed tomography (CT) of the abdomen and pelvis was performed with 100 mL Omnipaque 350 intravenous contrast. Automated exposure control and iterative reconstruction technique were employe d. The dose-length product was 1026.91 mGy-cm. COMPARISON: CT abdomen and pelvis 10/15/2024 FINDINGS: The visualized portions of the lung bases demonstrate mild atelectasis. No pleural effusion . The heart size is normal. There are coronary artery calcifications. No pericardial effusion. There is a small sliding hiatal hernia. There are surgical changes in left breast. The liver is normal. The re is a gallstone in the gallbladder, which is normal in size. The spleen, pancreas, adrenal glands, and kidneys are normal. There is an 8 mm mass in right kidney, which is too small for further evaluat ion, probably a hemorrhagic cyst. There is a 5 mm cyst in left kidney. There is focal wall thickening and small caliber of the transverse colon. The colon is dilated proximal to this area, consistent wi th obstruction. The small bowel is normal in caliber. There is nodularity of the peritoneum in the up per abdomen. There is mild aortocaval lymphadenopathy. There is no free intraperitoneal fluid. There is mild thoracic and lumbar spondylosis. IMPRESSION: 1. Persistent stricture of the transverse colon with bowel obstruction suspicious for primary maligna ncy. 2. Nodularity of the peritoneum in the upper abdomen suspicious for peritoneal carcinomatosis. 3. Mild aortocaval lymphadenopathy suspicious for metastatic disease. Reviewed, dictated and finalized at location A. ACT CENTER AGENT IMPRESSION: 1. Persistent stricture of the transverse colon with bowel obstruction suspicio us for primary malignancy. 2. Nodularity of the peritoneum in the upper abdomen suspicious for peritoneal carcinomatosis. 3. Mild aortocaval lymphadenopathy suspicious for metastatic disease.
--- NOTE | ~2024-10-21 | CT_ITS ---
EXAMINATION: CT diagnostic chest w con DATE: 10/23/2024 20:06 INDICATION: Staging for colon cancer TECHNIQUE: Computed tomography (CT) of the chest was performed with 100 mL Omnipaque-350 intravenous contrast. Automated exposure control and iterative reconstruction technique were employed. The dose-l ength product was 445.43 mGy-cm. COMPARISON: CT abdomen pelvis 10/21/2024. FINDINGS: CHEST: Thoracic aorta: No significant dilation. Mild atherosclerotic calcification. Lung parenchyma and airways: Bilateral dependent atelectasis. Patent airways. Thoracic inlet, axillae and chest wall: No thyroid or soft tissue mass. No axillary lymphadenopathy. Postsurgical change in the left breast. Mediastinum: Enlarged pretracheal lymph node. Heart and pericardium: Normal heart size. No pericardial effusion. Coronary artery calcifications: Mild. Pleura: No effusion or mass. Upper abdomen: Moderate volume pneumoperitoneum. Cholelithiasis. Pericolonic inflammatory stranding a nd nodularity at the hepatic flexure. Thoracic bones: No acute osseous finding in the chest. No lytic or blastic lesion. IMPRESSION: Pretracheal lymphadenopathy, otherwise unremarkable intrathoracic findings. Moderate pneumoperitoneum concerning for interval bowel perforation. Results reported telephonically to Jessica Rocha RN by Dr. Sales at 8:23 PM on 10/23/2024. Reviewed, dictated and finalized at location K. Y CATTLE FARMER IMPRESSION: Pretracheal lymphadenopathy, otherwise unremarkable intrathoracic findings. Moderate pneumoperitoneum concerning for interval bowel perforation. Results reported telephonically to Jessica Rocha RN by Dr. Sales at 8:23 P M on 10/23/2024.
--- NOTE | ~2024-10-21 | US_ITS ---
EXAM: Focused ultrasound examination of the soft tissues of the abdomen HISTORY: US bx omentum--attn Dr. Deleon. TECHNIQUE: Sonographic evaluation of the soft tissues of the anterior peritoneum were performed asses sing grayscale appearance and color Doppler flow. COMPARISON: Reference was made to CT examination dated 10/21/2024 and then subsequently 10/23/2024. FINDINGS: Original imaging dated 10/21/2024 demonstrated thickened and nodular omentum within the right mid to u pper quadrant of the abdomen, caudal to the liver and gallbladder. Repeat imaging performed 10/23/2024 (post colonoscopy) demonstrated extensive free air within the abdo men, precluding adequate visualization beyond the level of the anterior abdominal wall fascia. IMPRESSION: Aborted omental biopsy secondary to free air within the abdomen, precluding adequate visualization. Reviewed, dictated and finalized at location A. ICATION SOFTWARE DEVELOPER IMPRESSION: Aborted omental biopsy secondary to free air within the abdomen, precluding carlos quate visualization.
--- NOTE | ~2024-10-21 | US_ITS ---
EXAMINATION: US venous doppler LE RT DATE: 10/21/2024 15:44 INDICATION: Right lower limb swelling TECHNIQUE: Grayscale ultrasound images without and with compression and Doppler ultrasound images of the right lower extremity veins were obtained. COMPARISON: None. FINDINGS: The visualized portions of right common femoral vein, profunda (deep) femoral vein, femoral vein, pop liteal vein, posterior tibial veins, peroneal veins, gastrocnemius vein and greater saphenous vein ou tflow are patent. IMPRESSION: 1. No deep venous thrombosis in the right lower limb. Reviewed, dictated and finalized at location A. STAINER
--- NOTE | ~2024-10-21 | XR_ITS ---
INTRAOPERATIVE FLUOROSCOPY: CLINICAL HISTORY: 68 years old Female; INSERTION BAO CATH PROCEDURE COMMENTS: Limited intraoperative fluoroscopy of the mediastinum was performed. CUMULATIVE DOSE: 26.6 mGy FLUOROSCOPY TIME: 65 seconds FINDINGS/IMPRESSION: Please refer to operative note for further details. Reviewed, dictated and finalized at location A. ET CONTRACTOR
--- NOTE | ~2024-10-21 | XR_ITS ---
CHEST RADIOGRAPH CLINICAL HISTORY: POST INSERTION BAO CATH . COMPARISON: None available TECHNIQUE: Single portable view of the chest. FINDINGS A right subclavian central venous port catheter identified with the reservoir projecting just caudal to the right glenohumeral joint space and the tip projecting over the superior vena cava. Right upper extremity PICC line also detected with its tip projecting over the cavoatrial junction. The remainder of the cardiomediastinal silhouette is enlarged, but otherwise unremarkable. Patchy opacification of the left mid to lower lung field. Increased interstitial markings are identified bilaterally, findings suggesting mild pulmonary vascul ar congestion. The lungs are otherwise clear. IMPRESSION: Mild pulmonary vascular congestion with patchy opacification of the left mid to lower lung field. Supportive devices in position (as detailed above) and ready for immediate use. Reviewed, dictated and finalized at location A. DENT CARE COORDINATOR
--- NOTE | ~2024-10-21 | CT_ITS ---
EXAMINATION: CT abdomen pelvis w con DATE: 10/23/2024 21:26 INDICATION: possible bowel perforation TECHNIQUE: Computed tomography (CT) of the abdomen and pelvis was performed with 100 mL Omnipaque-350 intravenous contrast. Automated exposure control and iterative reconstruction technique were employe d. The dose-length product was 1235.57 mGy-cm. COMPARISON: 10/21/2024. FINDINGS: Lower thorax: Bibasilar scar/atelectasis. Liver: Normal. Biliary/Gallbladder: Gallbladder is normal. No bile duct dilation. Pancreas: No mass or duct dilation. Spleen: Normal. Adrenals:No mass. Kidneys: No suspicious mass, obstructing stone, or hydronephrosis. Indeterminate density right lower pole lesion, too small to characterize likely hemorrhagic or proteinaceous cyst. 5 mm cyst or AML in the left kidney. Excreted contrast in the collecting system. GI tract: No small bowel dilation. Persistent but decreased cecal and ascending colonic dilation now measuring up to 7.0 and 6.6 cm respectively. Short segment colonic wall thickening and luminal narrow ing at the proximal transverse colon with distal decompression. Normal appendix. Mesentery/Peritoneum: Moderate volume of nondependent free air. Scattered bubbles of mesenteric gas a re seen adjacent to the ascending colon in the right lower quadrant and to a greater degree adjacent to the colon in the right upper quadrant. Small traces of pericolonic fluid adjacent to the ascending colon which were present previously. Mesenteric stranding and nodular soft tissue densities in the m esenteric fat at the hepatic flexure Retroperitoneum: No mass. Pelvis: Pelvic organs are within normal limits. Soft Tissues: Soft tissues and body wall unremarkable. Bones: No acute osseous finding. IMPRESSION: Moderate pneumoperitoneum concerning for large bowel perforation. A definite bowel wall defect is not identified. Candidate location at the hepatic flexure based on the presence of a slightly increased amount of pericolonic mesenteric gas bubbles. Persistent stricture of the transverse colon with slight interval decompression of the dilated proxim al large bowel. 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 Reviewed, dictated and finalized at location K. R PLAN ADJUSTER IMPRESSION: Moderate pneumoperitoneum concerning for large bowel perforation. A definite breana wel wall defect is not identified. Candidate location at the hepatic flexure ba sed on the presence of a slightly increased amount of pericolonic mesenteric ga s bubbles. Persistent stricture of the transverse colon with slight interval decompression of the dilated proximal large bowel. 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
[2024-10-21 13:33] VITALS: BP 137/73; PULSE 113; RESP 18; TEMP 36.1; O2SAT 98
--- OUTSIDE RECORDS SUMMARY | 2024-10-21 14:01 | XMS_ITS | Clinical Summary ---
Author Organization [facility] Address [facility] [place] [address] [place] [address] Care Team Providers Care Sales Clerk Food Name Role Phone Richardson Correa Primary Care Provider + Aris Meyer MD Unavailable [phone] Allergies No known active allergies Medications biotin [...] Comments Blood Pressure 167/88 09/26/2021 4:12 PM MANAGER FOOD BEVERAGE Pulse 99 09/26/2021 4:12 PM MANAGER FOOD BEVERAGE Temperature 37 ??C (98.6 ??F) 09/26/2021 4:12 PM MANAGER FOOD BEVERAGE Respiratory Rate 20 09/26/2021 4:12 PM MANAGER FOOD BEVERAGE Oxygen Saturation 93% 09/26/2021 4:12 PM MANAGER FOOD BEVERAGE Inhaled Oxygen Concentration - - Weight 88.4 kg (194 lb 14.2 oz) 022 11:00 AM MANAGER FOOD BEVERAGE Height 154.9 cm (5' 1 ) 09/26/2021 11:0 0 AM MANAGER FOOD BEVERAGE Body Mass Index 36.82 09/26/2021 11:00 AM MANAGER FOOD BEVERAGE Plan of Treatment Health Maintenance Due Date [...] (1 - 1-dose 75+ series) 12/30/2030 Meningococcal B Vaccine Aged Out No l onger eligible based on patient's age to complete this topic Meningococcal Vaccine Aged Out No [place] ivone eligible based on patient's age to complete this topic RSV Immunizations Under 20 Months Aged Out No longer eligible based on patient's age to complete this topic Insurance [facility] Care Teams Sales Clerk Food Relationship Specialty Start Date End Date Richardson Correa PA PCP - General PHYSICIAN HOOK AND EYE SEWING MACHINE OPERATOR 09/13/21 [place] [id number] [place] [id number] CARDIOVASCULAR DISEASE 09/13/21
--- OUTSIDE RECORDS SUMMARY | 2024-10-21 14:02 | XMS_ITS ---
Author Organization [facility] Address [address] [place] [address] Care Team Providers Care Scenic Arts Supervisor Name Role Phone Richardson Correa Primary Care Provider + Richardson Correa Unavailable [phone] Aris Meyer MD Unavailable Ghanshyam Calixto DO Unavailable [phone] Domingo Bearden MD Unavailable [phone] Ebony Masters MD Unavailable [phone] Active Problems Problem Noted Date Diagnosed Date Personal history of radiation therapy 12/26/2021 Malignant neoplasm of upper- outer quadrant of left breast in female, estrogen receptor positive 08/31/2021 Cancer Staging:Clinical stage from 05/26/2021:Stage IB(cT2, cN0, cM0, G2, ER+, MA+, HER2-) - Signed by Ebony Masters MD on 08/31/2021 Pathologic stage from 09/26/2021:Stage IA(pT1b, pN0(sn), cM0, G2, ER+, MA+, HER2-) - Signed by Ebony Masters MD [...]
--- OUTSIDE RECORDS SUMMARY | 2024-10-21 14:02 | XMS_ITS | Clinical Summary ---
Author Organization [facility] Address [address] [place] [address] Care Team Providers Care Electrogalvanizing Machine Operator Name Role Phone Richardson Correa Primary Care Provider + Richardson Correa Unavailable [phone] Aris Meyer MD Unavailable Ghanshyam Calixto DO Unavailable [phone] Domingo Bearden MD Unavailable [phone] Ebony Masters MD Unavailable [phone] Allergies No known active allergies Medications diclofenac [...] from 05/26/2021:Stage IB(cT2, cN0, cM0, G2, ER+, MS+, HER2-) - Signed by Ebony Masters MD on 08/31/2021 Pathologic stage from 09/26/2021:Stage IA(pT1b, pN0(sn), cM0, G2, ER+, MS+, HER2-) - Signed by Ebony Masters MD on 10/12/2021 Malignant neoplasm of upper- outer quadrant of left breast in female, estrogen receptor positive 08/10/2021 Immunizations Name Administration Dates Next Due Moderna SARS-CoV-2 Monovalen t Vaccination (12+ YRS) 07/18/2021,12/27/2020,11/30/2020 Pneumococcal Conjugate PCV 13 08/12/2021 Surgical History Surgery Date Site/Laterality Comments HYSTERECTOMY MS LIG/TRNSXJ FLP TUBE ABDL/VAG APPR UNI/BI Tubal Ligation - (Added by TW Conv) MS SALPINGO-OOPHORECTOMY COMPL/PRTL UNI/BI SPX Salpingo-oophorectomy Left Side - (Added by TW Conv) MS COLPOPEXY ABDOMINAL APPROACH Vaginal Surgery Colpopexy Abdominal [...] on file Legal Sex Female 7:22 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 Gender Identity Not on file Sexual Orientation [...] CDT with shoes Height 154.9 cm (5' 1 ) 06/14/2023 11:03 AM CDT Body Mass Index [...] or Tdap) 02/02/2026 02/03/2016 Insurance [facility] Address: [facility] [address] [place] [id number] [employer]IC[employer] [facility] Address: [address] [address] [place] [id number] Care Teams Electrogalvanizing Machine Operator Relationship Specialty Start [place] [address] [place] [id number] PCP - General Internal Medicine 08/31/21 [place] [address] [place] [id number] Internal Medicine 08/31/21 Aris Meyer MD [address] [place] [address] Consulting Physician Cardiology 08/31/21 Ghanshyam Calixto DO [address] [place] [address] [phone] Medical Oncologist/Surgical Technology Instructor Hematology and Oncology 08/31/21 Domingo Bearden MD [address] [place] [address] [address] [place] [address] Surgeon General Surgery 08/31/21 Ebony Masters MD [facility] [address] [place] [address] Radiation Oncologist Radiation Oncology 05/14/24
--- OUTSIDE RECORDS SUMMARY | 2024-10-21 14:02 | XMS_ITS | Data Portability ---
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 Plan of Treatment Reminders Order Date Submit Date Provider Last Modified By Organization Details Last Modified Time Details Appointments ANY 15 2024 09:00A M Emperatriz Meyer MD Not available Not available Not available Lab rf (rheumato id factor), serum 2022 023 [facility], [address] [place], [place] [address], [address], [place], [address], 01/11/2023 09:16:24 C reactive protein, QN, serum or plasma 2022 023 [facility], [address] [facility], [address], [place], [address], 01/11/2023 09:16:25 erythrocy te sedimenta tion rate by westergre n method 2022 023 [facility], [address] [facility] [address], [address], [place], [address], 01/11/2023 09:16:23 CBC 2022 023 [facility], [address] [facility] [address], [address], [place], [address], 01/10/2023 03:39:55 lipid panel, serum 2022 023 [facility], [address], [address], [place], [address], 01/10/2023 03:39:56 vitamin D, 25-hydrox y, total, serum 2022 023 [facility], [address], [address], [place], [address], 01/11/2023 09:16:26 noninvasi ve colorecta l cancer DNA + occult blood screening , QL, stool 2022 023 [facility], [address], [address], [place], [address], 01/08/2023 11:03:49 CMP, serum or plasma 2022 023 [facility], [address] [facility] [address], [address], [place], [address], 01/10/2023 03:39:56 noninvasi ve colorecta l cancer DNA + occult blood screening , QL, stool 2022 023 [facility]ard [facility] Only), [address], [address], [place], [address], 05/31/2023 03:58:30 vitamin D, 25-hydrox y, total, serum 2022 023 [facility], [address] [facility] [address], [address], [place], [address], 07/17/2023 08:26:35 CMP, serum or plasma 2022 023 [facility], [address], [address], [place], [address], 07/17/2023 06:15:55 lipid panel, serum 2022 023 [facility], [address], [address], [place], [address], 07/17/2023 06:15:54 CBC 2022 023 [facility], [address], [address], [place], [address], 07/17/2023 06:15:56 TSH, ultra-sen sitive, serum 2022 023 [facility], [address], [address], [place], [address], 07/17/2023 08:26:34 HbA1c (hemoglob in A1c), blood 2023 024 [facility], [address], [address], [place], [address], 07/08/2024 08:29:59 vitamin D, 25-hydrox y, total, serum 2023 024 [facility], [address], [address], [place], [address], 07/08/2024 08:30:00 CMP, serum or plasma 2023 024 [facility], [address], [address], [place], [address], 07/08/2024 08:29:58 lipid panel, serum 2023 024 [facility], [address], [address], [place], [address], 07/08/2024 08:29:56 Referral dermatolo gist referral 2023 024 [email or web address] Kirk Hardy MD ([facility] Derm[facility]), [address] [place], [address], 03/30/2024 01:42:29 Procedures None recorded. Surgeries None recorded. Imaging XR, wrist + hand 2022 023 [facility] (One Call Scheduling), [address] [place], [address], 01/11/2023 02:52:41 MAMMO, screening , bilateral 2022 023 [facility] (One Call Scheduling), [address] [place], [address], 06/05/2023 14:58:34 MAMMO, screening , digital, bilateral - Hx papillary carcinoma left breast [address] (Mammography) , [address], [place], [address], 10/17/2024 09:59:11 Medication Orders ibuprofen 600 mg tablet 2022 023 [facility], [address], [place], [id number], 01/09/2024 09:52:03 losartan 50 mg-hydroc hlorothia zide 12.5 mg tablet 2022 023 [facility], [address], [place], [id number], 01/09/2024 09:52:10 amlodipin e 5 mg tablet 2022 023 [facility], [address], [place], [id number], 05/10/2023 10:36:53 losartan 100 mg-hydroc hlorothia zide 12.5 mg tablet 2022 023 [facility], [address], [place], [id number], 07/10/2023 10:38:22 losartan 100 mg-hydroc hlorothia zide 12.5 mg tablet [address] [facility]58627, [address], [place], [id number], 07/07/2024 10:38:53 metoprolo l succinate ER 50 mg tablet,ex tended release 24 hr [address] [facility] #25340, [address], [place], [id number], 07/07/2024 10:38:53 amlodipin e 5 mg tablet [address] [facility] #57279, [address], [place], [id number], 07/07/2024 10:38:53 pravastat in 40 mg tablet [address] [facility] #03217, [address], [place], [id number], 07/07/2024 10:40:07 ezetimibe 10 mg tablet [address] [facility] #21985, [address], [place], [id number], 07/07/2024 10:38:52 potassium chloride ER 10 mEq tablet,ex tended release [address] [facility] #51921, [address], [place], [id number], 07/07/2024 10:38:53 Patient TargetsNo targets recorded. Patient Instructions Encounter Date Encounter Id Patient Instructions Last Modified By Organization Details Last Modified Time 01/08/2023 [id number] When You Want to Lose Weight: Care Instructions [email or web address] Not available 01/08/2023 11:03:30 A healthy lifestyle: care instructions [email or web address] Not available 01/08/2023 11:03:30 high cholesterol : care instructions Not available 01/08/2023 11:03:29 learning about high blood pressure [email or web address] Not available 01/08/2023 11:03:30 05/10/2023 [id number] When You Want to Lose Weight: Care Instructions [email or web address] Not available 05/10/2023 10:36:42 A healthy lifestyle: care instructions [email or web address] Not available 05/10/2023 10:36:41 learning about breast cancer screening [email or web address] Not available 05/10/2023 10:36:42 07/10/2023 [id number] back care and preventing injuries: care instructions [email or web address] Not available 07/10/2023 10:37:54 When You Want to Lose Weight: Care Instructions [email or web address] Not available 07/10/2023 10:37:54 A healthy lifestyle: care instructions [email or web address] Not available 07/10/2023 10:37:53 learning about high blood pressure Not available 07/10/2023 10:37:54 high cholesterol : care instructions [email or web address] Not available 07/10/2023 10:37:53 hypokalemia: car e instructions [email or web address] Not available 07/10/2023 10:37:54 01/09/2024 [id number] back care and preventing injuries: care instructions [email or web address] Not available 01/09/2024 10:35:11 When You Want to Lose Weight: Care Instructions [email or web address] Not available 01/09/2024 10:35:11 high cholesterol : care instructions [email or web address] Not available 01/09/2024 10:35:11 A healthy lifestyle: care instructions [email or web address] Not available 01/09/2024 10:35:11 learning about high blood pressure [email or web address] Not available 01/09/2024 10:35:11 hypokalemia: car e instructions Not available 01/09/2024 10:35:11 07/07/2024 [id number] learning about breast cancer screening [email or web address] Not available 07/07/2024 10:33:31 When You Want to Lose Weight: Care Instructions [email or web address] Not available 07/07/2024 10:33:31 A healthy lifestyle: care instructions Not available 07/07/2024 10:33:31 learning about high blood pressure [email or web address] Not available 07/07/2024 10:33:31 high cholesterol : care instructions [email or web address] Not available 07/07/2024 10:33:31 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 Department [address] [place], [address], 01/09/2023 19:09:16 01/10/2001/09/2023 LIPID PANEL HDL cholesterol 41.1 mg/dL 40.0-1 00.0 Not Available [facility] Department [address] [place], [address], 01/09/2023 19:09:16 01/10/2001/09/2023 LIPID PANEL VLDL cholesterol [place] 24.00 mg/dL 5.00-4 0.00 Not Available [facility] Department [address] [place], [address], 01/09/2023 19:09:16 01/10/20 23 01/09/2023 LIPID PANEL LDL chol calc ([facility]) 67.9 Not Available [facility] Department [address] [place], [address], 01/09/2023 19:09:16 01/10/20 23 01/09/2023 COMP. METAB OLIC PANEL (14) glucose 98 mg/dL 65-99 ANION GP 20.0 mmol/ L N OSMOL 286.0 mOsM/ L N REFER ENCE RANGE : 275.0 -301. 0 Not Available [facility] Department [address] [place], [address], 01/09/2023 19:09:16 01/10/20 23 01/09/2023 COMP. METAB OLIC PANEL (14) BUN 15 mg/dL 8-26 Not Available [facility] Department [address] [place], [address], 01/09/2023 19:09:16 01/10/20 23 01/09/2023 COMP. METAB OLIC PANEL (14) creatinine 0.59 mg/dL 0.50-1 .40 Not Available [facility] Department [address] [place], [address], 01/09/2023 19:09:16 01/10/20 23 01/09/2023 COMP. METAB OLIC PANEL (14) eGFR 99 mL/mi n/1.7 3 >=60 Not Available [facility] Department [address] [place], [address], 01/09/2023 19:09:16 01/10/20 23 01/09/2023 COMP. METAB OLIC PANEL (14) BUN/creatini ne ratio 25.[address] [facility] Department [address] [place], [address], 01/09/2023 19:09:16 01/10/20 23 01/09/2023 COMP. METAB OLIC PANEL (14) sodium 143.0 mmol/ L 136.0- 144.0 Not Available [facility] Department [address] [place], [address], 01/09/2023 19:09:16 01/10/20 23 01/09/2023 COMP. METAB OLIC PANEL (14) potassium 3.8 mmol/ L 3.5-5. 3 Not Available [facility] Department [address] [place], [address], 01/09/2023 19:09:16 01/10/20 23 01/09/2023 COMP. METAB OLIC PANEL (14) chloride 102 mmol/ l 101-11 1 Not Available [facility] Department [address] [place], [address], 01/09/2023 19:09:16 01/10/20 23 01/09/2023 COMP. METAB OLIC PANEL (14) carbon dioxide, total 24.3 mmol/ L 21.0-3 2.0 Not Available [facility] Department [address] [place], [address], 01/09/2023 19:09:16 01/10/20 23 01/09/2023 COMP. METAB OLIC PANEL (14) calcium 10.2 mg/dL 8.2-10 .0 above high normal Not Available [facility] Department [address] [place], [address], 01/09/2023 19:09:16 01/10/20 23 01/09/2023 COMP. METAB OLIC PANEL (14) protein, total 6.8 g/dL 6.7-8. 2 Not Available [facility] Department [address] [place], [address], 01/09/2023 19:09:16 01/10/20 23 01/09/2023 COMP. METAB OLIC PANEL (14) albumin 4.5 g/dL 3.5-5. 5 Not Available [facility] Department [address] [place], [address], 01/09/2023 19:09:16 01/10/20 23 01/09/2023 COMP. METAB OLIC PANEL (14) globulin, total 2.3 g/dL 1.5-4. 5 Not Available [facility] Department [address] [place], [address], 01/09/2023 19:09:16 01/10/20 23 01/09/2023 COMP. METAB OLIC PANEL (14) A/G ratio 2.0 Not Available [facility] Department [address] [place], [address], 01/09/2023 19:09:16 01/10/20 23 01/09/2023 COMP. METAB OLIC PANEL (14) bilirubin, total 1.0 mg/dL 0.0-1. 2 Not Available [facility] Department [address] [place], [address], 01/09/2023 19:09:16 01/10/20 23 01/09/2023 COMP. METAB OLIC PANEL (14) alkaline phosphatase 133.4 IU/L 42.0-1 21.0 above high normal Not Available [facility] Department [address] [place], [address], 01/09/2023 19:09:16 01/10/20 23 01/09/2023 COMP. METAB OLIC PANEL (14) AST (SGOT) 22.3 U/L 10.0-4 2.0 Not Available [facility] Department [address] [place], [address], 01/09/2023 19:09:16 01/10/20 23 01/09/2023 COMP. METAB OLIC PANEL (14) ALT (SGPT) 27.5 U/L 10.0-6 0.0 Not Available [facility] Department [address] [place], [address], 01/09/2023 19:09:16 01/10/20 23 01/09/2023 CBC, PLATE LET, NO DIFFE RENTI AL WBC 7.7 K/uL 3.4-10 .8 Not Available [facility] Department [address] [place], [address], 01/09/2023 19:09:17 01/10/20 23 01/09/2023 CBC, PLATE LET, NO DIFFE RENTI AL RBC 4.7 M/uL 4.2-5. 4 Not Available [facility] Department [address] [place], [address], 01/09/2023 19:09:17 01/10/2001/09/2023 CBC, PLATE LET, NO DIFFE RENTI AL hemoglobin 13.7 g/dL 11.5-1 5.5 Not Available [facility] Department [address] [place], [address], 01/09/2023 19:09:17 01/10/2001/09/2023 CBC, PLATE LET, NO DIFFE RENTI AL hematocrit 41.6 % 36.0-4 8.0 Not Available [facility] Department [address] [place], [address], 01/09/2023 19:09:17 01/10/2001/09/2023 CBC, PLATE LET, NO DIFFE RENTI AL MCV 89 fL 80-95 Not Available [facility] Department [address] [place], [address], 01/09/2023 19:09:17 01/10/20 23 01/09/2023 CBC, PLATE LET, NO DIFFE RENTI AL MCH 29 pg 27-32 Not Available [facility] Department [address] [place], [address], 01/09/2023 19:09:17 01/10/2001/09/2023 CBC, PLATE LET, NO DIFFE RENTI AL MCHC 33 g/dL 32-36 Not Available [facility] Department [address] [place], [address], 01/09/2023 19:09:17 01/10/20 23 01/09/2023 CBC, PLATE LET, NO DIFFE RENTI AL RDW 12.1 % 11.5-1 4.5 Not Available [facility] Department [address] [place], [address], 01/09/2023 19:09:17 01/10/20 23 01/09/2023 CBC, PLATE LET, NO DIFFE RENTI AL platelets 173 K/uL 155-37 9 MPV 10.5 FL 8.9-1 2.7 N Not Available [facility] Department [address] [place], [address], 01/09/2023 19:09:17 01/10/20 23 01/09/2023 CBC, PLATE LET, NO DIFFE RENTI AL NRBC 0 % Not Available [facility] Department [address] [facility], [place], [address], 01/09/2023 19:09:17 01/10/20 23 01/11/2023 SEDIM ENTAT ION RATE- WESTE RGREN sedimentatio n rate-westerg jumana 12 mm/HR 0-40 Not Available [facility]) [address] [place], [address], 01/11/2023 09:16:23 01/10/20 23 01/10/2023 RHEUM ATOID FACTO R (RF) rheumatoid factor (rf) <10.0 IU/mL <14.0 Not Available [facility]) [address] [place], [address], 01/11/2023 09:16:24 01/10/2001/10/2023 C-ESTEFANI CTIVE PROTE IN, QUANT C-reactive protein, quant 6 mg/L 0-10 Not Available [facility] ([facility]) [address] [place], [address], 01/11/2023 09:16:25 01/10/20 23 01/10/2023 VITAM IN [...] Florencio sahu DC: The Nat[facility] Press . 2. Arielle sharif MF, Olga epna [place], Fletcher off-F caroline i DUMONT, et al. Evalu ation , treat ment, and preve ntion of vitam in D defic iency : an Endoc rine Socie ty clini [place] pract ice guide line. JCEM. 2010; 96(7) :1911 -30. Not Available [facility] ([facility]) [address] [place], [address], 01/11/2023 09:16:26 01/11/20 23 01/11/2023 OCCUL T BLOOD , FECAL , IA occult blood, fecal, ia Negati ve negati ve Not Available [facility] ([facility]) [address] [place], [address], 01/11/2023 15:10:31 05/22/20 23 05/22/2023 COLOG UARD [...] is negat redd. TEST DESCR IPTIO N: [place] site algor ithmi c julio sis of [...] years or older , who are at psychiatric for color ectal cance r (CRC) . Colog uard has been appro yao for use by the [place]. FDA. The perfo rmanc e of Colog uard was estab lishe d in a cross secti onal study of psychiatric adult s aged 50-84 . Colog uard perfo rmanc e in patie nts ages 45 to 49 years was estim ated by sub-g roup julio sis of near- age group s. [...] of 10,00 0 indiv idual s at [facility] risk for color ectal cance r who [...] s can be found at www.c domingo robert.c om. Not Available [facility] (Cologuard Orders Only) [address], [place], [address], 05/31/2023 03:58:30 07/16/2007/16/2023 LIPID PANEL cholesterol, total 128 mg/dL 100-19 9 Not Available [facility] Department [address] [place], [address], 07/17/2023 06:15:54 07/16/2007/16/2023 LIPID PANEL triglyceride s 123 mg/dL 0-[address] [facility] Department [address] [place], [address], 07/17/2023 06:15:54 07/16/2007/16/2023 LIPID PANEL HDL cholesterol 42 mg/dL 40-999 Not Available [facility] Department [address] [place], [address], 07/17/2023 06:15:54 07/16/2007/16/2023 LIPID PANEL VLDL cholesterol [place] 25 mg/dL 5-[address] [facility] Department [address] [place], [address], 07/17/2023 06:15:54 07/16/2007/16/2023 LIPID PANEL LDL chol calc ([facility]) 79 mg/dL 0-99 Not Available [facility] Department [address] [place], [address], 07/17/2023 06:15:54 07/16/2007/16/2023 COMP. METAB OLIC PANEL (14) glucose 94 mg/dL 70-99 Not Available [facility] Department [address] [place], [address], 07/17/2023 06:15:55 07/16/2007/16/2023 COMP. METAB OLIC PANEL (14) BUN 18 mg/dL 8-27 Not Available [facility] Department [address] [place], [address], 07/17/2023 06:15:55 07/16/2007/16/2023 COMP. METAB OLIC PANEL (14) creatinine 0.52 mg/dL 0.76-1 .27 below low normal Not Available [facility] Department [address] [place] [address], [address], 07/17/2023 06:15:55 07/16/2007/16/2023 COMP. METAB OLIC PANEL (14) eGFR 102 >=60 Units for eGFR value s are mL/mi n/1.7 3 The eGFR Calcu latio n has not been valid ated for patie nts under the age of 18. If test resul ts are displ ayed for a patie nt under the age of 18, disre liborio that value . Not Available [facility] Department [address] [place], [address], 07/17/2023 06:15:55 07/16/2007/16/2023 COMP. METAB OLIC PANEL (14) BUN/creatini ne ratio 35 10-28 above high normal Not Available [facility] Department [address] [place], [address], 07/17/2023 06:15:55 07/16/2007/16/2023 COMP. METAB OLIC PANEL (14) sodium 143 mmol/ L 134-14 4 Not Available [facility] Department [address] [place], [address], 07/17/2023 06:15:55 07/16/2007/16/2023 COMP. METAB OLIC PANEL (14) potassium 3.3 mmol/ L 3.5-5. 2 below low normal Not Available [facility] Department [address] [place] [address], [address], 07/17/2023 06:15:55 07/16/2007/16/2023 COMP. METAB OLIC PANEL (14) chloride 101 mmol/ L 96-106 Not Available [facility] Department [address] [place] [address], [address], 07/17/2023 06:15:55 07/16/2007/16/2023 COMP. METAB OLIC PANEL (14) carbon dioxide, total 27 mmol/ L 20-29 Not Available [facility] Department [address] [place] [address], [address], 07/17/2023 06:15:55 07/16/2007/16/2023 COMP. METAB OLIC PANEL (14) calcium 9.2 mg/dL 8.7-10 .3 Not Available [facility] Department [address] [place] [address], [address], 07/17/2023 06:15:55 07/16/2007/16/2023 COMP. METAB OLIC PANEL (14) protein, total 6.7 g/dL 6.0-8. 5 Not Available [facility] Department [address] [place] [address], [address], 07/17/2023 06:15:55 07/16/2007/16/2023 COMP. METAB OLIC PANEL (14) albumin 4.3 g/dL 3.8-4. 8 Not Available [facility] Department [address] [place] [address], [address], 07/17/2023 06:15:55 07/16/2007/16/2023 COMP. METAB OLIC PANEL (14) globulin, total 2.4 g/dL 1.5-4. 5 Not Available [facility] Department [address] [place], [address], 07/17/2023 06:15:55 07/16/2007/16/2023 COMP. METAB OLIC PANEL (14) A/G ratio 1.8 1.2-2. 2 Not Available [facility] Department [address] [place], [address], 07/17/2023 06:15:55 07/16/2007/16/2023 COMP. METAB OLIC PANEL (14) bilirubin, total 0.8 mg/dL 0.0-1. 2 Not Available [facility] Department [address] [place], [address], 07/17/2023 06:15:55 07/16/2007/16/2023 COMP. METAB OLIC PANEL (14) alkaline phosphatase 129 IU/L 44-121 above high normal Not Available [facility] Department [address] [place], [address], 07/17/2023 06:15:55 07/16/2007/16/2023 COMP. METAB OLIC PANEL (14) AST (SGOT) 21 IU/L 0-40 Not Available [facility] Department [address] [place] [address], [address], 07/17/2023 06:15:55 07/16/2007/16/2023 COMP. METAB OLIC PANEL (14) ALT (SGPT) 29 IU/L 0-32 Not Available [facility] Department [address] [place], [address], 07/17/2023 06:15:55 07/16/2007/16/2023 CBC, PLATE LET, NO DIFFE RENTI AL WBC 7.5 x10e3 /uL 3.4-10 .8 Not Available [facility] Department [address] [place] [address], [address], 07/17/2023 06:15:56 07/16/2007/16/2023 CBC, PLATE LET, NO DIFFE RENTI AL RBC 4.66 x10e6 /uL 3.77-5 .28 Not Available [facility] Department [address] [place], [address], 07/17/2023 06:15:56 07/16/2007/16/2023 CBC, PLATE LET, NO DIFFE RENTI AL hemoglobin 13.4 g/dL 11.1-1 5.9 Not Available [facility] Department [address] [place], [address], 07/17/2023 06:15:56 07/16/2007/16/2023 CBC, PLATE LET, NO DIFFE RENTI AL hematocrit 41.7 % 34.0-4 6.6 Not Available [facility] Department [address] [place], [address], 07/17/2023 06:15:56 07/16/2007/16/2023 CBC, PLATE LET, NO DIFFE RENTI AL MCV 90 fL 79-97 Not Available [facility] Department [address] [place], [address], 07/17/2023 06:15:56 07/16/2007/16/2023 CBC, PLATE LET, NO DIFFE RENTI AL MCH 28.8 pg 26.6-3 3.0 Not Available [facility] Department [address] [place], [address], 07/17/2023 06:15:56 07/16/2007/16/2023 CBC, PLATE LET, NO DIFFE RENTI AL MCHC 32.1 g/dL 31.5-3 5.7 Not Available [facility] Department [address] [place], [address], 07/17/2023 06:15:56 07/16/2007/16/2023 CBC, PLATE LET, NO DIFFE RENTI AL RDW 12.7 % 11.5-1 4.5 Not Available [facility] Department [address] [place], [address], 07/17/2023 06:15:56 07/16/2007/16/2023 CBC, PLATE LET, NO DIFFE RENTI AL platelets 194 x10e3 /uL 150-45 0 Mean Plate let Volum e 10.6 fL 8.9-1 2.7 N Not Available [facility] Department [address] [place], [address], 07/17/2023 06:15:56 07/16/2007/16/2023 CBC, PLATE LET, NO DIFFE RENTI AL NRBC 0 % 0-0 Not Available [facility] Department [address] [place], [address], 07/17/2023 06:15:56 07/16/2007/17/2023 TSH TSH 2.340 uIU/m L 0.450- 4.500 Not Available [facility] ([facility]) [address] [facility], [place], [address], 07/17/2023 08:26:34 07/16/2007/17/2023 VITAM IN D, 25-HY [...] D. Florencio sahu DC: The [facility] Press . 2. Arielle sharif MF, Olga pena [place], Fletcher off-F errar i DUMONT, et al. Evalu ation , treat ment, and preve ntion of vitam in D defic iency : an Endoc rine Socie ty clini [place] pract ice guide line. JCEM. 2010; 96(7) :1911 -30. Not Available [facility] ([facility]) [address] [facility], [place], [address], 07/17/2023 08:26:35 07/07/2007/08/2024 LIPID PANEL cholesterol, total 136 mg/dL 100-19 9 Not Available [facility] ([facility]) [address] [place], [address], 07/08/2024 08:29:56 07/07/2007/08/2024 LIPID PANEL triglyceride s 162 mg/dL 0-149 above high normal Not Available [facility] ([facility]) [address] [place], [address], 07/08/2024 08:29:56 07/07/2007/08/2024 LIPID PANEL HDL cholesterol 40 mg/dL >39 Not Available [facility] ([facility]) [address] [facility], [place], [address], 07/08/2024 08:29:56 07/07/2007/08/2024 LIPID PANEL VLDL cholesterol [place] 28 mg/dL 5-40 Not Available [facility] ([facility]) [address] [place], [address], 07/08/2024 08:29:56 07/07/2007/08/2024 LIPID PANEL LDL chol calc ([facility]) 68 mg/dL 0-99 Not Available [facility] ([facility]) [address] [place], [address], 07/08/2024 08:29:56 07/07/2007/08/2024 COMP. METAB OLIC PANEL (14) glucose 102 mg/dL 70-99 above high normal Not Available [facility] ([facility]) [address] [facility] [place], [address], 07/08/2024 08:29:58 07/07/2007/08/2024 COMP. METAB OLIC PANEL (14) BUN 16 mg/dL 8-27 Not Available [facility] ([facility]) [address] [facility] [place], [address], 07/08/2024 08:29:58 07/07/2007/08/2024 COMP. METAB OLIC PANEL (14) creatinine 0.76 mg/dL 0.57-1 .00 Not Available [facility] ([facility]) [address] [facility] [place], [address], 07/08/2024 08:29:58 07/07/2007/08/2024 COMP. METAB OLIC PANEL (14) eGFR 85 mL/mi n/1.7 3 >59 Not Available [facility] ([facility]) [address] [facility], [place], [address], 07/08/2024 08:29:58 07/07/2007/08/2024 COMP. METAB OLIC PANEL (14) BUN/creatini ne ratio 21 12-28 Not Available [facility] ([facility]) [address] [facility] [place], [address], 07/08/2024 08:29:58 07/07/2007/08/2024 COMP. METAB OLIC PANEL (14) sodium 139 mmol/ L 134-14 4 Not Available [facility] ([facility]) [address] [facility] [place], [address], 07/08/2024 08:29:58 07/07/2007/08/2024 COMP. METAB OLIC PANEL (14) potassium 3.8 mmol/ L 3.5-5. 2 Not Available [facility] ([facility]) [address] [facility] [place], [address], 07/08/2024 08:29:58 07/07/20 24 07/08/2024 COMP. METAB OLIC PANEL (14) chloride 98 mmol/ L 96-106 Not Available [facility] ([facility]) [address] [facility], [place], [address], 07/08/2024 08:29:58 07/07/20 24 07/08/2024 COMP. METAB OLIC PANEL (14) carbon dioxide, total 25 mmol/ L 20-29 Not Available [facility] ([facility]) [address] [facility], [place], [address], 07/08/2024 08:29:58 07/07/2007/08/2024 COMP. METAB OLIC PANEL (14) calcium 9.7 mg/dL 8.7-10 .3 Not Available [facility] ([facility]) [address] [facility], [place], [address], 07/08/2024 08:29:58 07/07/2007/08/2024 COMP. METAB OLIC PANEL (14) protein, total 7.1 g/dL 6.0-8. 5 Not Available [facility] ([facility]) [address] [facility], [place], [address], 07/08/2024 08:29:58 07/07/2007/08/2024 COMP. METAB OLIC PANEL (14) albumin 4.4 g/dL 3.9-4. 9 Not Available [facility] ([facility]) [address] [facility], [place], [address], 07/08/2024 08:29:58 07/07/2007/08/2024 COMP. METAB OLIC PANEL (14) globulin, total 2.7 g/dL 1.5-4. 5 Not Available [facility] ([facility]) [address] [facility], [place], [address], 07/08/2024 08:29:58 07/07/2007/08/2024 COMP. METAB OLIC PANEL (14) bilirubin, total 0.8 mg/dL 0.0-1. 2 Not Available [facility] ([facility]) [address] [place], [address], 07/08/2024 08:29:58 07/07/20 24 07/08/2024 COMP. METAB OLIC PANEL (14) alkaline phosphatase 108 IU/L 44-121 Not Available [facility] ([facility]) [address] [place], [address], 07/08/2024 08:29:58 07/07/2007/08/2024 COMP. METAB OLIC PANEL (14) AST (SGOT) 23 IU/L 0-40 Not Available [facility] ([facility]) [address] [place], [address], 07/08/2024 08:29:58 07/07/20 24 07/08/2024 COMP. METAB OLIC PANEL (14) ALT (SGPT) 19 IU/L 0-32 Not Available [facility] ([facility]) [address] [place], [address], 07/08/2024 08:29:58 07/07/2007/08/2024 HEMOG LOBIN A1C hemoglobin A1C 6.2 % 4.8-5. 6 above high normal Predi abete s: 5.7 - 6.4 Diabe mesfin: >6.4 Glyce leona contr ol for adult s with diabe mesfin: <7.0 Not Available [facility] ([facility]) [address] [place], [address], 07/08/2024 08:29:59 07/07/2007/08/2024 VITAM IN D, 25-HY [...] um and D. Florencio sahu [place]: [facility] Press . 2. Arielle sharif MF, Olga pena [place], Bisch off-F errclaude i DUMONT, et al. Evalu ation , treat ment, and preve ntion of vitam in D defic iency : an Endoc rine Socie ty clini [place] pract ice guide line. JCEM. 2010; 96(7) :1911 -30. Not Available [facility] ([facility]) [address] [facility], [place], [address], 07/08/2024 08:30:00 10/07/1910/07/2024 urina lysis , dipst [...] 10/07/2024 urina lysis , dipst ick Specific Whitt 1.020 Not Available In-Off ice Order Internal [...] + hand No observ ation record ed. [address] [place], [address], 01/24/2023 14:16:12 03/09/20 23 03/09/2023 CT, abdom en + pelvi s, w/o contr ast No observ ation record ed. [address], [place], [address], 03/13/2023 16:43:45 06/05/20 23 06/05/2023 MAMMO , scree ana, bilat eral No observ ation record ed. [facility] [address] [place], [address], 06/27/2023 12:53:30 07/03/2007/03/2023 US, breas t, unila teral No observ ation record ed. [facility] [address] [place], [address], 07/05/2023 09:20:36 07/03/2007/03/2023 MAMMO , diagn ostic , unila teral No observ ation record ed. [address] ([employer]) [address] [place], [address], 07/03/2023 14:20:42 10/15/19 25 10/15/2024 CT, abdom en + pelvi s, w/ contr ast No observ ation record ed. [address] [address], [place], [address], 10/16/2024 12:21:18 10/17/19 25 10/17/2024 US, abdom en No observ ation record ed. [address] [address], [place], [address], 10/20/2024 12:22:07 Result Notes None recorded. Problems Name Problem SNOMED Code Status Onset Date Resolution Date Notes Provider Name and Address Organization Details Recorded Time Low back pain 909304040 Active 2017 Not Available [facility] 2 06:06:52 Dysuria 28084965 Active 2017 Not Available [facility] 2 06:06:52 Hypokale shana 77377162 Active 2018 Not Available [facility] 2 06:06:52 Administ ration of influenz a vaccine Active 2018 Not Available [facility] 2 06:06:52 Normal grief reaction 260171005 Active 2019 Not Available [facility] 2 06:06:52 High hemoglob in A1c level 303656529 Active 2019 Not Available [facility] 2 06:06:52 Injury of ribs 765239217 Active 2020 right Not Available [facility] 2 06:06:52 Cardiome mahendra 9686174 Active 2020 Not Available [facility] 2 06:06:52 Screenin g for malignan t neoplasm of breast Active 2020 Not Available [facility] 2 06:06:52 Mammogra phy abnormal 912751677 Active 2020 Not Available [facility] 2 06:06:52 Cervical spondylo sis 551767055 Active 2020 see XR cervical spine 05/27/2021 Not Available [facility] 2 06:06:52 Ultrason ography of breast abnormal 28243740834 748156 Active 2020 Not Available [facility] 2 06:06:52 Administ ration of pneumoco ccal vaccine Active 2020 Not Available [facility] 2 06:06:52 Menopaus e present 033734512 Active 2020 Not Available [facility] 2 06:06:52 HIV screenin g Active 2021 Richardson Correa PA-C Attn: Accounting ,[address] [facility], [place], [address] , [place] - [facility] 2 10:01:15 Pharyngi tis 715400203 Active 2021 Richardson Correa PA-C Attn: Accounting ,[address] [facility], [place], [address] , [place] [facility] 2 10:46:21 Cough 15706959 Active 2021 Emperatriz Meyer MD Attn: Accounting ,[address] [facility], [place], [address] , [place] [facility] 2 17:15:56 Morbid obesity 223812446 Active 2022 Emperatriz Meyer MD Attn: Accounting ,[address] [facility], [place], [address] , [place] [facility] 3 10:57:52 Finger joint stiff 458170244 Active 2022 Emperatriz Meyer MD Attn: Accounting ,[address] [facility], [place], [address] , [place] [facility] 3 10:59:17 Pain of bilatera l hands 33064972153 487867 Active 2022 Emperatriz Meyer MD Attn: Accounting ,[address] [facility], [place], [address] , [place] [facility] 3 10:39:02 History of polyp of colon 882759797 Active 2023 Emperatriz Meyer MD Attn: Accounting ,[address] [facility], [place], [address] , [place] [facility] 4 10:34:33 Disorder of skin 17021046 Active 2023 Emperatriz Meyer MD Attn: Accounting ,[address] 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, [place], [address] , [place] [facility] 4 10:28:22 Disorder of left ear 79413759644 92962 Active 2023 Emperatriz Meyer MD Attn: Accounting ,[address] [facility], [place], [address] , [place] [facility] 4 10:31:36 Urinary tract infectio us disease 72228365 Active 2024 Emperatriz Meyer MD Attn: Accounting ,[address] [place], [address] , [facility] - [facility] 5 15:39:12 Essentia l hyperten alex 61574377 Active Not Available [facility] 2 06:06:52 Hyperlip idemia 80351923 Active Not Available [facility] 2 06:06:52 Follicul itis 78050008 Active Not Available [facility] 2 06:06:52 Acute labyrint hitis 76724158468 4103 Active Not Available [facility] 2 06:06:52 Obesity 838783914 Completed 01/08/2023 Emperatriz Meyer MD Attn: Accounting ,[address] [facility], [place], [address] , [facility] - [facility] 3 10:57:41 Screenin g for malignan t neoplasm of colon Active 2016 Not Available [facility] 2 06:06:52 Vitamin D deficien cy 45694555 Active 2016 Not Available [facility] 2 06:06:52 Notes:prolapsed bowel in 200 7.... pinned to spine Problem Notes None recorded. Procedures Surgical History Date Name Laterality Status Provider Name and Address Organization Details Recorded Time 09/26/19 22 lumpectomy of breast completed Yenny Jackson MA [facility] 04/04/2022 09:43:11 09/24/19 16 Most Recent Mammogram completed Danish Cortez [facility] 06/19/2019 10:20:56 09/24/19 07 operation on intestine completed Danish Cortez [facility] 06/19/2019 10:24:51 09/24/18 88 Hysterectomy completed Danish ConwayDana [facility] 06/19/2019 10:23:01 Imaging Results Imaging Date Name Status LastModified by Organiz ation Details LastModified Time 01/10/2023 XR, wrist + hand completed [email or web address] [address], [address], 01/24/2023 14:16:12 03/09/2023 CT, abdomen + pelvis, w/o contrast completed [address], [address], 03/13/2023 16:43:45 06/05/2023 MAMMO, screening, bilateral completed [facility] [address] [place], [address], 06/27/2023 12:53:30 07/03/2023 US, breast, unilateral completed [facility] [address] [place], [address], 07/05/2023 09:20:36 07/03/2023 MAMMO, diagnostic, unilateral completed [address] ([employer]) [address] [place], [address], 07/03/2023 14:20:42 10/15/2024 CT, abdomen + pelvis, w/ contrast completed [address], [address], 10/16/2024 12:21:18 10/17/2024 US, abdomen completed [address], [address], 10/20/2024 12:22:07 Procedure Notes None recorded. Medical Equipment None [...] Available Not Available pravastatin 40 mg tablet TAKE 1 TABLET BY MOUTH EVERY DAY active Not Available Not Available No t Available ibuprofen 800 mg tablet TAKE 1 [...] Not Available Not Available No t Available hydrocodone 5 mg-acetamin ophen 325 mg tablet [...] completed Not Available Not Available Not Available fluorouraci l 5 % topical cream APPLY TO THE AFFECTED AREA OF EAR TWICE DAILY active Not Available Not Available No t Available meclizine 12.5 mg tablet TAKE 1 TABLET BY MOUTH THREE TIMES DAILY 01/08 completed Not Available Not Available Not Available potassium chloride ER 10 mEq tablet,exte nded release TAKE 1 TABLET BY MOUTH EVERY DAY IN THE MORNING active Not Available Not Available No t Available metronidazo le 500 mg tablet TAKE 1 TABLET BY MOUTH EVERY 8 HOURS FOR 11 DAYS active Not Available Not Available No t Available amlodipine 5 mg tablet TAKE 2 TABLETS BY MOUTH EVERY DAY IN THE MORNING active Not Available Not Available No t Available ciprofloxac in 500 mg tablet TAKE 1 TABLET BY MOUTH EVERY 12 HOURS active Not Available Not Available No t Available peg-electro lyte solution 420 gram oral solution [...] completed Not Available Not Available Not Available fluoxetine 10 mg capsule Take 1 capsule [...] completed Not Available Not Available Not Available oxycodone-a cetaminophe n 7.5 mg-325 mg tablet TAKE 1 TABLET BY MOUTH EVERY 6 HOURS NEEDED FOR PAIN FOR 5 DAYS active Not Available Not Available No t Available levofloxaci n 750 mg tablet TAKE 1 TABLET BY MOUTH DAILY FOR 11 DAYS active Not Available Not Available No t Available losartan 50 mg-hydrochl orothiazide 12.5 mg [...] completed Not Available Not Available Not Available Guerdas Butt Paste 16 % topical ointment Apply [...] DateTime 01/08/2023 156.21 cm Dalia Ellis MA [facility] 10:24:36 Date Recorded Body mass index (BMI) Body weight Provider Name and Address Organization Details Last Updated DateTime 01/08/2023 37.4 kg/m2 01044.07 g [facility] 0 01/08/2023 10:35:51 Date Recorded Body temperature Provider Name a nd Address Organization Details Last Updated DateTime 01/08/2023 98.1 [degF] Dalia Ellis [place] [facility] 01/09/20 23 10:35:54 Date Recorded Heart rate Provider Name an d Address Organization Details Last Updated DateTime 01/08/2023 89 /min [facility] 10:37:18 Date Recorded Oxygen saturation Oxygen saturation in Arterial blood by Pulse oximetry Provider Name and Address Organization Details Last Updated DateTime 01/08/2023 96 % 96 % [facility] 01/08/2023 10:37:23 Date Recorded Body height Provider Name an d Address Organization Details Last Updated DateTime 05/10/2023 156.21 cm Madelyn HalFCO [facility] 05/10/2023 10:06:29 Date Recorded Body mass index (BMI) Body weight Provider Name and Address Organization Details Last Updated DateTime 05/10/2023 37.2 kg/m2 31297.47 g Madelyn Hong MA [facility] 10:09:37 Date Recorded Heart rate Provider Name an d Address Organization Details Last Updated DateTime 05/10/2023 91 /min Madelyn Hong MA [facility] 05/10/2023 10:11:57 Date Recorded Oxygen saturation Oxygen saturation in Arterial blood by Pulse oximetry Provider Name and Address Organization Details Last Updated DateTime 05/10/2023 94 % 94 % Madelyn Hong MA [facility] 05/10/2023 10:12:02 Date Recorded Body height Provider Name an d Address Organization Details Last Updated DateTime 07/10/2023 156.21 cm Dalia Ellis MA [facility] 09:42:45 Date Recorded Body mass index (BMI) Body weight Provider Name and Address Organization Details Last Updated DateTime 07/10/2023 36.2 kg/m2 27407.51 g Dalia Ellis MA [facility] 1 10:01:30 Date Recorded Heart rate Provider Name an d Address Organization Details Last Updated DateTime 07/10/2023 80 /min [facility] 3 10:01:34 Date Recorded Body temperature Provider Name a nd Address Organization Details Last Updated DateTime 07/10/2023 98 [degF] Dalia Ellis [place] [facility] 10:01:37 Date Recorded Oxygen saturation Oxygen saturation in Arterial blood by Pulse oximetry Provider Name and Address Organization Details Last Updated DateTime 07/10/2023 95 % 95 % [facility] - [facility] 07/10/2023 10:01:44 Date Recorded Body height Provider Name an d Address Organization Details Last Updated DateTime 01/09/2024 156.21 cm Dalia Ellis MA [facility] 09:51:33 Date Recorded Body mass index (BMI) Body weight Provider Name and Address Organization Details Last Updated DateTime 01/09/2024 34.9 kg/m2 75569.37 g Dalia Ellis MA [facility] 0 01/09/2024 10:15:34 Date Recorded Body temperature Provider Name a nd Address Organization Details Last Updated DateTime 01/09/2024 98 [degF] Dalia Ellis MA [facility] 10:15:43 Date Recorded Oxygen saturation Oxygen saturation in Arterial blood by Pulse oximetry Provider Name and Address Organization Details Last Updated DateTime 01/09/2024 96 % 96 % Dalia Ellis MA [facility] 01/09/2024 10:15:46 Date Recorded Heart rate Provider Name an d Address Organization Details Last Updated DateTime 01/09/2024 84 /min Dalia Ellis MA [facility] 10:15:50 Date Recorded Body height Provider Name an d Address Organization Details Last Updated DateTime 07/07/2024 156.21 cm Jose Correa MA [facility] 07/07/2024 09:46:16 Date Recorded Body mass index (BMI) Body weight Provider Name and Address Organization Details Last Updated DateTime 07/07/2024 36.6 kg/m2 09492.7 g Jose Correa MA [facility] 07/07/2024 09:51:27 Date Recorded Heart rate Provider Name an d Address Organization Details Last Updated DateTime 07/07/2024 82 /min Jose Correa MA [facility] 06/24 10:00:31 Date Recorded Oxygen saturation Oxygen saturation in Arterial blood by Pulse oximetry Provider Name and Address Organization Details Last Updated DateTime 07/07/2024 95 % 95 % Jose Correa MA [facility] 07/07/2024 10:00:35 Date Recorded Systolic blood pressure Diastolic blood pressure Provider Name and Address Organization Details Last Updated DateTime 01/08/2023 142 mm[Hg] 82 mm[Hg] Dalia Ellis MA [facility] 01/08/2023 10:37:28 Date Recorded Systolic blood pressure Diastolic blood pressure Provider Name and Address Organization Details Last Updated DateTime 05/10/2023 150 mm[Hg] 85 mm[Hg] Madelyn Hong [place] [facility] 05/10/2023 10:11:49 Date Recorded Systolic blood pressure Diastolic blood pressure Provider Name and Address Organization Details Last Updated DateTime 07/10/2023 140 mm[Hg] 80 mm[Hg] Dalia Ellis [place] [facility] 07/10/2023 10:01:32 Date Recorded Systolic blood pressure Diastolic blood pressure Provider Name and Address Organization Details Last Updated DateTime 01/09/2024 134 mm[Hg] 80 mm[Hg] Dalia Ellis [place] [facility] 01/09/2024 10:15:53 Date Recorded Systolic blood pressure Diastolic blood pressure Provider Name and Address Organization Details Last Updated DateTime 07/07/2024 130 mm[Hg] 81 mm[Hg] Jose Correa [place] [facility] 07/07/2024 10:00:14 Social History Question Answer Notes LastModified by Organizat ion Details LastModified Time Tobacco Smoking Status Never Smoker Not Available [facility] 07/27/2020 03:43:22 Do You Have An Advance Directive? No [id number] Information not available 07/27/2020 What Is Your Level Of Alcohol Consumption? None [id number] Information not available 07/27/2020 Are You Blind Or Do You Have Difficulty Seeing? No [id number] Information not available 07/27/2020 What Is Your Level Of Caffeine Consumption? Moderate [id number] Information not available 07/27/2020 How Much Tobacco Do You Chew? None [id number] Information not available 07/27/2020 Are You Currently Employed? No Information not available 02/03/2021 Are You Deaf Or Do You Have Serious Difficulty Hearing? No [id number] Information not available 07/27/2020 What Type Of Diet Are You Following? REGULAR [id number] Information not available 07/27/2020 Which Illicit Or Recreational Drugs Have You Used? 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 No [id number] Information not available 07/27/2020 Hard Of Hearing [...] How Much Tobacco Do You Smoke? No [id number] Information not available 07/27/2020 General Stress Level Medium Information not available 02/23/2015 Do You Feel Stressed (tense, Restless, Nervous, Or Anxious, Or Unable To Sleep At Night)? [id number] Information not available 02/03/2021 Do You Use Any Illicit Or Recreational Drugs? No Information not available 02/03/2021 Do You Use Sunscreen Routinely? No [id number] Information not available 07/27/2020 Has Tobacco Cessation [...] have difficulty walking or climbing stairs? No [id number] Information not available 07/27/2020 Do you have difficulty doing errands alone? No [id number] Information not available 07/27/2020 Are you able to care for yourself? Yes Information not available 02/03/2021 Do you have difficulty dressing or bathing? No [id number] Information not available 07/27/2020 What is your exercise level? Occasional [id number] Information not available 07/27/2020 Mental Status Question Answer Note LastModified by Organization D etails LastModified Time Do you have difficulty concentrating, remembering or making decisions? No [id number] Information no t available 07/27/2020 Family History [...] High Blood Pressure Y Breast Cancer N Kidney or Bladder Problems N Thyroid Problems N GI Problems N Depression N COPD N Blood Clots N Have you had a mammogram in the last yea r? N Skin Problems Y Breast Problem N Anemia N Heart Attack (AR) N Anxiety Disorder N Diabetes N Muscle, Joint, or Bone Problems N Seizures/Epilepsy N Have you had a colonoscopy in the last 1 0 years? N Acid Reflux (GERD) N Cancer Y Stroke N Asthma N Allergies N Have you had a PSA blood test in the las t year? N High Cholesterol Y Hepatitis N Liver Disease N Headaches N Heart Failure N Osteoporosis N Gynecological History Statement/Question Response Date of Last Pap Smear Sexual Problems? N Most Recent Mammogram 09/24/2015 Obstetrics History GPAL:G 2 P 2 0 0 2 Type Value Full Term 2 Living 2 Total 2 Immunizations Vaccine Type Date Status Note Provider Nam e and Address Organization Details Recorded Time Tdap 6 completed Not Available [facility] 10/11/2019 02:30:21 Influenza, split virus, quadrivalent, preservative 0 completed Not Available [facility] 09/28/2021 06:06:52 COVID-19, mRNA, LNP-S, PF, 100 mcg/0.5mL dose or 50 mcg/0.25mL dose 1 completed Not Available [facility] 09/28/2021 06:06:52 COVID-19, mRNA, LNP-S, PF, 100 mcg/0.5mL dose or 50 mcg/0.25mL dose 1 completed Not Available [facility] 09/28/2021 06:06:52 COVID-19, mRNA, LNP-S, PF, 100 mcg/0.5mL dose or 50 mcg/0.25mL dose 1 completed Yenny Jackson [place], [place] [facility] 06/09/2022 15:14:04 COVID-19, mRNA, LNP-S, PF, 100 mcg/0.5mL dose or 50 mcg/0.25mL dose 2 completed Yenny Jackson [place], [place] [facility] 06/09/2022 15:14:27 Influenza, split virus, trivalent, PF 7 completed [facility] [place], [place] [facility] 07/07/2024 09:58:36 Influenza, split virus, quadrivalent, preservative 9 completed Not Available [facility] 10/11/2019 02:41:29 Pneumococcal conjugate PCV 13 1 completed [facility] [place], [place] [facility] 08/12/2021 10:52:14 Influenza, split virus, quadrivalent, preservative 5 completed Not Available [facility] 10/11/2019 02:47:51 Past Encounters Encounter ID Performer Location Encounter Start Date Encounter Closed Date Diagnosis/Indication Diagnosis SNOMED-CT Code Diagnosis ICD10 Code Diagnosis Note [id number] Maryam (Adult Med) [address] [place] [id number] 02/23/2015 09:39:49 02/23/2015 11:21:06 Essential hypertension 95240610 Hyperlipidemia 81098480 Adult heal th examination [id number] [id number] [facility] (Adult Med) [address] [place] [phone] [id number] 05/26/2015 09:14:07 05/26/2015 10:15:40 Adult health examination 946303931 Essential hypertension 82979945 Hyperlipidemia 92522354 Folliculitis 38311449 [id number] ALIZA Chavis (Adult Med) [address] [place] [address] 21219-405 0 07/27/2015 09:15:41 07/27/2015 10:04:19 Administration of influenza vaccine 17817796 Z23 Adult heal th examination 055933307 Z00.00 Essential hypertension 23587857 I10 Hyperlipidemia 80247651 E78.5 [id number] ALIZA Chavis (Adult Med) [address] [place] [address] 66989-762 0 10/05/2015 09:14:36 10/05/2015 10:02:26 Acute labyrinthitis 6346825943 90330 H83.09 Essential hypertension 89306543 I10 Hyperlipidemia 50804368 E78.5 [id number] ALIZA Chavis (Adult Med) [address] [place] [address] 26517-419 0 02/03/2016 09:14:08 02/03/2016 16:59:30 Essential hypertension 37045297 I10 Hyperlipidemia 34195966 E78.5 Obesity 154703085 E66.9 Administra tion of tetanus vaccine 486780961 Z23 Screening mammography 24 036554 Z12.31 [id number] ALIZA Chavis (Adult Med) [address] [place] [address] 44913-103 0 08/02/2016 10:29:29 08/02/2016 12:00:24 Obesity 924591308 E66.9 Hyperlipidemia 25524958 E78.5 Essential hypertension 98539849 I10 Acute labyrinthitis 4336 318372 38545 H83.09 [id number] ALIZA Chavis (Adult Med) [address] [place] [address] 64059-701 0 11/23/2016 09:31:42 11/24/2016 11:40:13 Screening for malignant neoplasm of colon 004333578 Z12.11 Essential hypertension 60192948 I10 Hyperlipidemia 91476963 E78.5 Obesity 813395135 E66.9 Acute labyrinthitis 4336 003810 56509 H83.09 [id number] ALIZA Chavis (Adult Med) [address] [place] [address] 62050-918 0 05/25/2017 09:32:08 05/25/2017 10:53:40 Essential hypertension 29651581 I10 Acute labyrinthitis 4336 182430 19270 H83.09 Hyperlipidemia 62713709 E78.5 Vitamin D deficiency 347 31568 E55.9 Obesity 020420037 E66.9 [id number] ALIZA Chavis (Adult Med) [address] [place] [address] 72604-389 0 08/24/2017 09:32:20 08/24/2017 10:21:15 Essential hypertension 60265611 I10 Hyperlipidemia 52005690 E78.5 Obesity 274791687 E66.9 Vitamin D deficiency 347 06809 E55.9 Screening for malignant neoplasm of colon 353889008 Z12.11 [id number] ALIZA Chavis (Adult Med) [address] [place] [address] 49321-176 0 02/22/2018 09:21:27 02/22/2018 10:17:15 Hyperlipidemia 18410135 E78.5 Essential hypertension 36537257 I10 Dysuria 56309385 R30.0 Low back pain 818576914 M54.5 Vitamin D deficiency 347 19847 E55.9 Obesity 966593153 E66.9 [id number] ALIZA Chavis (Adult Med) [address] [place] [address] 15427-064 0 06/04/2018 10:03:24 06/05/2018 10:23:44 Hyperlipidemia 56198240 E78.5 Essential hypertension 09898671 I10 Obesity 316512876 E66.9 Low back pain 273738501 M54.5 Vitamin D deficiency 347 93922 E55.9 Screening for malignant neoplasm of colon 501464785 Z12.11 [id number] ALIZA Chavis (Adult Med) [address] [place] [address] 39611-539 0 09/05/2018 09:18:32 09/05/2018 10:34:15 Essential hypertension 88755417 I10 Hyperlipidemia 85326495 E78.5 Obesity 399841697 E66.9 Vitamin D deficiency 347 56008 E55.9 Screening for malignant neoplasm of colon 573197741 Z12.11 [id number] ALIZA Chavis (Adult Med) [address] [place] [address] 16291-354 0 11/05/2018 09:34:48 11/05/2018 10:50:15 Hypokalemia 16948931 E87.6 Hyperlipidemia 85871381 E78.5 Essential hypertension 78468679 I10 Obesity 882927546 E66.9 Vitamin D deficiency 347 92874 E55.9 Low back pain 204686146 M54.5 Screening for malignant neoplasm of colon 054287943 Z12.11 [id number] ALIZA Chavis (Adult Med) [address] [place] [address] 13200-287 0 03/13/2019 11:20:26 03/14/2019 08:56:05 Essential hypertension 93188222 I10 Hyperlipidemia 24393145 E78.5 Vitamin D deficiency 347 97312 E55.9 Low back pain 060103971 M54.5 Hypokalemia 42812203 E87 .6 Dysuria 11502612 R30.0 Obesity 439043301 E66.9 [id number] ALIZA Chavis (Adult Med) [address] [place] [address] 66381-172 0 05/12/2019 09:16:58 05/13/2019 09:16:57 Low back pain 571283379 M54.5 [id number] Danish EASLEY (PERIOPERATIVE TECH) [address] [place] [address] 59056-190 0 06/19/2019 09:57:34 06/20/2019 11:42:59 Screening mammography 72025141 Z12.31 History of hysterectomy 251507299 Z90.711 2007 for cervical cancer Screening for osteoporosis 401814582 Z13.820 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 Menopausal syndrome 1237 03828 N95.9 Candidal vulvovaginitis 51372684 B37.3 [id number] ALIZA Chavis (Adult Med) [address] [place] [address] 62334-786 0 06/26/2019 09:20:24 06/26/2019 10:03:58 Essential hypertension 81293839 I10 Hyperlipidemia 27091561 E78.5 Vitamin D deficiency 347 22787 E55.9 Low back pain 770120001 M54.5 Hypokalemia 49434858 E87 .6 Administra tion of influenza vaccine 27395004 Z23 Obesity 079037533 E66.9 [id number] ALIZA Chavis (Adult Med) [address] [place] [address] 65388-309 0 07/24/2019 09:27:53 07/24/2019 10:15:50 Essential hypertension 81121885 I10 Hyperlipidemia 23330041 E78.5 Obesity 948564657 E66.9 Vitamin D deficiency 347 75436 E55.9 Low back pain 225651362 M54.5 Hypokalemia 33227017 E87 .6 History of hysterectomy 519464358 Z90.852 [id number] ALIZA Chavis (Adult Med) [address] [place] [address] 25866-079 0 12/08/2019 10:44:52 12/08/2019 11:47:12 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 Essential hypertension 87959753 I10 Hyperlipidemia 77882423 E78.5 Vitamin D deficiency 347 99364 E55.9 Hypokalemia 41414498 E87 .6 Low back pain 507752917 M54.5 [id number] ALIZA Chavis (Adult Med) [address] [place] [address] 50667-877 0 04/13/2020 09:35:27 04/13/2020 10:18:08 Essential hypertension 92786196 I10 Hyperlipidemia 40303234 E78.5 Vitamin D deficiency 347 09646 E55.9 High hemog lobin A1c level 791119958 R73.09 [id number] ALIZA Chavis (Adult Med) [address] [place] [address] 60285-671 0 07/26/2020 08:00:03 07/26/2020 11:11:05 High hemoglobin A1c level 599613616 R73.09 Hyperlipidemia 19930095 E78.5 Low back pain 650998223 M54.5 Vitamin D deficiency 347 35993 E55.9 Essential hypertension 54689040 I10 Normal grief reaction 27 7854894 F43.20 Hypokalemia 62341929 E87 .6 [id number] ALIZA Chavis (Adult Med) [address] [place] [address] 61098-024 0 01/04/2021 11:05:45 01/06/2021 11:05:34 Low back pain 025463110 M54.5 Essential hypertension 59416216 I10 Hyperlipidemia 05452726 E78.5 Vitamin D deficiency 347 09178 E55.9 [id number] ALIZA Chavis (Adult Med) [address] [place] [address] 55530-906 0 02/03/2021 11:43:22 02/03/2021 12:23:07 Low back pain 990221542 M54.5 Hyperlipidemia 14409753 E78.5 Hypokalemia 91105432 E87 .6 Vitamin D deficiency 347 57901 E55.9 High hemog lobin A1c level 926138412 R73.09 Essential hypertension 46470914 I10 [id number] ALIZA Chavis (Adult Med) [address] [place] [address] 34217-082 0 03/31/2021 10:35:44 03/31/2021 11:41:27 Cardiomegaly 2817236 I51.7 Hyperlipidemia 57833010 E78.5 Essential hypertension 12172080 I10 Screening for malignant neoplasm of breast 609857106 Z12.39 High hemog lobin A1c level 840137882 R73.09 Low back pain 359116540 M54.5 Vitamin D deficiency 347 33148 E55.9 Screening mammography of bilateral breasts 9165896769 28082 Z12.31 [id number] ALIZA Chavis (Adult Med) [address] [place] [address] 36282-545 0 08/12/2021 09:37:08 08/12/2021 11:13:10 Mammography abnormal 259095419 R92.8 Administra tion of pneumococcal vaccine 13651822 Z23 Normal grief reaction 27 0404584 F43.20 Menopause present 037421 006 Z78.0 [id number] ALIZA Chavis (Adult Med) [address] [place] [address] 05109-546 0 11/25/2021 10:21:39 12/01/2021 17:01:26 Cervical spondylosis 921267604 M47.812 Essential hypertension 36707932 I10 High hemog lobin A1c level 698015952 R73.09 Hyperlipidemia 70395288 E78.5 Low back pain 758854526 M54.50 Normal grief reaction 27 8785348 F43.20 Vitamin D deficiency 347 82151 E55.9 [id number] ALIZA Chavis (Adult Med) [address] [place] [address] 19928-212 0 02/28/2022 09:59:45 03/01/2022 11:47:22 Essential hypertension 87629683 I10 Acute labyrinthitis 4336 356478 59990 H83.09 Cardiomegaly 5418908 I51 .7 Cervical spondylosis 387 717402 M47.812 High hemog lobin A1c level 098148810 R73.09 Hyperlipidemia 14278684 E78.5 Low back pain 339589998 M54.50 Obesity 183667803 E66.9 Vitamin D deficiency 347 23219 E55.9 [id number] ALIZA Chavis (Adult Med) [address] [place] [address] 25794-594 0 04/04/2022 09:06:07 04/05/2022 11:44:29 Screening for malignant neoplasm of breast 812813562 Z12.39 Vitamin D deficiency 347 50775 E55.9 Normal grief reaction 27 3059601 F43.20 Hyperlipidemia 34448911 E78.5 Essential hypertension 14763834 I10 HIV screening 259135660 Z11.4 High hemog lobin A1c level 559978673 R73.09 Cervical spondylosis 387 906565 M47.812 Low back pain 436485485 M54.50 Screening mammography 24 222332 Z12.31 [id number] ALIZA Chavis (Adult Med) [address] [place] [address] 52578-967 0 05/08/2022 10:18:30 05/09/2022 08:17:42 Essential hypertension 42478166 I10 Low back pain 973912636 M54.50 Pharyngitis 881232614 J0 2.9 Cardiomegaly 7254985 I51 .7 Cervical spondylosis 387 162327 M47.812 High hemog lobin A1c level 878051532 R73.09 Hyperlipidemia 55356548 E78.5 Normal grief reaction 27 2820599 F43.20 Vitamin D deficiency 347 10720 E55.9 [id number] ALIZA Chavis (Adult Med) [address] [place] [address] 41411-099 0 06/09/2022 10:30:01 06/12/2022 13:58:21 Cervical spondylosis 046988044 M47.812 Hyperlipidemia 01588427 E78.5 Essential hypertension 30266063 I10 Low back pain 379151100 M54.50 Obesity 098270971 E66.9 Vitamin D deficiency 347 24468 E55.9 Cardiomegaly 7622558 I51 .7 High hemog lobin A1c level 547197327 R73.09 [id number] MD Maryam White (Adult Med) [address] [place] [address] 03141-909 0 08/09/2022 14:57:26 08/11/2022 12:39:15 Essential hypertension 38024120 I10 Cont current regimen Cough 71348651 R05.9 [id number] MD Maryam White (Adult Med) [address] [place] [address] 31905-239 0 01/08/2023 10:13:51 01/09/2023 10:18:23 Morbid obesity 422897141 E66.01 Essential hypertension 49412970 I10 Cont current regimen Hyperlipidemia 48416555 E78.5 Cardiomegaly 8718282 I51 .7 Finger joint stiff 42911 8005 M25.649 Vitamin D deficiency 347 38783 E55.9 Screening for malignant neoplasm of colon 231962513 Z12.11 [id number] MD Maryam White (Adult Med) [address] [place] [address] 62599-286 0 05/10/2023 09:35:49 05/14/2023 10:00:26 Essential hypertension 45039157 I10 high x last three visits. Will increase amlodipine to 10 mg/d Morbid obesity 621614873 E66.01 Screening for malignant neoplasm of breast 331253030 Z12.39 Screening for malignant neoplasm of colon 755270425 Z12.11 Pain of bi lateral hands 9011358089 7763343 M79.641 M79.642 Screening mammography 24 033673 Z12.31 [id number] MD Maryam White (Adult Med) [address] [place] [address] 37701-912 0 07/10/2023 09:34:52 07/19/2023 12:43:18 Essential hypertension 56625461 I10 Will increase amlodipine to 10 mg/d. Will increase losartan Hyperlipidemia 72556485 E78.5 Hypokalemia 03867344 E87 .6 Low back pain 453251143 M54.50 Morbid obesity 846040570 E66.01 Vitamin D deficiency 347 05609 E55.9 [id number] MD Maryam White (Adult Med) [address] [place] [address] 98939-371 0 01/09/2024 09:27:37 01/10/2024 12:34:09 Obesity 207709127 E66.9 Essential hypertension 87574943 I10 Continue current regimen High hemog lobin A1c level 471706478 R73.09 Hyperlipidemia 40874401 E78.5 Hypokalemia 65820509 E87 .6 Low back pain 378751079 M54.50 Morbid obesity 340106498 E66.01 Vitamin D deficiency 347 75629 E55.9 History of polyp of colon 852080163 Z86.010 Get colonoscop y results Disorder of skin 0061485 5 L98.9 [id number] Emperatriz Meyer MD [facility] (Adult Med) [address] [place] [address] 99361-948 0 07/07/2024 09:31:14 07/08/2024 10:00:55 Essential hypertension 22362928 I10 Continue current regimen High hemog lobin A1c level 768720880 R73.09 History of polyp of colon 404520797 Z86.0100 Hyperlipidemia 99555671 E78.5 Morbid obesity 573320105 E66.01 Vitamin D deficiency 347 39028 E55.9 Carcinoma of breast 2548 81485 C50.919 Screening for malignant neoplasm of breast 536565571 Z12.39 Disorder of left ear 359 5346595 397509 H93.92 Will refer to ENT after other problems addresses Hypokalemia 47620028 E87 .6 Health Concerns Section Related Observation LastModified by Organization Detai ls LastModified Time None Recorded Concern Status LastModified by Organization Details LastModified Time None Recorded Advance Directives Directive N: Payers Encounter Date Sequence Insurance Name Policy Number Policy Mcghee Covered Member ID Mcghee Member ID Guarantor Name 01/08/2023 1 [facility] (MEDICARE REPLACEMENT/A DVANTAGE - HMO) [id number] Yaneth A Estrella [id number] Yaneth Ebonie Estrella 05/10/2023 1 [facility] (MEDICARE REPLACEMENT/A DVANTAGE - HMO) [id number] Yaneth A Estrella [id number] Yaneth Ebonie Estrella 07/10/2023 1 [facility] (MEDICARE REPLACEMENT/A DVANTAGE - HMO) [id number] Yaneth A Estrella [id number] Yaneth Ebonie Estrella 01/09/2024 1 [facility] (MEDICARE REPLACEMENT/A DVANTAGE - HMO) [id number] Yaneth A Estrella [id number] Yaneth Ebonie Estrella 07/07/2024 1 [facility] (MEDICARE REPLACEMENT/A DVANTAGE - HMO) [id number] Yaneth A Estrella [id number] Yaneth Ebonie Estrella Notes Date Note Type Note Provider Name and Address Organization Details Recorded Time 01/08/2023 text/html Hands swelling a nd stiffness in hands especially on the left in the past month. She has tried OTC meds with some relief. Emperatriz Meyer MD Attn: Accounting,[address] [facility], [place], [address], [place] - [facility] 01/08/2023 11:04:03 05/10/2023 text/html Here for four month f/u visit. Needs mammogram. BP med was apparently denied Emperatriz Meyer MD Attn: Accounting,[address] [facility], [place], [address], [place] - [facility] 05/10/2023 10:41:36 07/10/2023 text/html Here for BP f/u. Scheduled for colonoscopy in two days. Emperatriz Meyer MD Attn: Accounting[address] [place], [address], [facility] 07/10/2023 10:38:18 01/09/2024 text/html Here for routine f/u. Had colonoscopy about six months ago. Wants results. Has skin lesions on her ear she wants examined by dermatology Emperatriz Meyer MD Attn: Accounting[address] [place], [address], [place] [facility] 01/09/2024 10:39:49 07/07/2024 text/html Throbbing of lef t ear for four months. Needs mammogram Emperatriz Meyer MD Attn: Accounting[address] [place], [address], [place] [facility] 07/07/2024 10:40:04 OBGyn Episode Ob Episode Information Episode Created Date Number of Fetuses Patient Bloodtype Patient rh Status Prepregnancy Weight lbs Domestic Partner Domestic Partner Phone Father Name Insurance Salesman Status 06/19/20 19 1 CLOSED Fetus Data First Name Last Name Admitted to NICU Weight (g) Sex Living Outcome Pediatric Complications Fetus ID Race Codes Race Delivery Type Full Term [id number] Nathanael Calculation Initial Nathanael Date Initial Exam [...] Domestic Partner Domestic Partner Phone Father Name Insurance Salesman Status 06/19/20 19 1 CLOSED Fetus Data First Name Last Name Admitted to NICU Weight (g) Sex Living Outcome Pediatric Complications Fetus ID Race Codes Race Delivery Type Full Term [id number] Nathanael Calculation Initial Nathanael Date Initial Exam [...]
--- OUTSIDE RECORDS SUMMARY | 2024-10-21 14:02 | XMS_ITS | Referral Summary ---
Author Organization [facility] Address [address] [place] [address] Care Team Providers Care Sugar Cane Planter Name Role Phone Richardson Correa Primary Care Provider + Richardson Correa Unavailable [phone] Aris Meyer MD Unavailable Ghanshyam Calixto DO Unavailable [phone] Domingo Bearden MD Unavailable [phone] Ebony Masters MD Unavailable [phone] Allergies No known active allergies Medications diclofenac [...] from 05/26/2021:Stage IB(cT2, cN0, cM0, G2, ER+, SD+, HER2-) - Signed by Ebony Masters MD on 08/31/2021 Pathologic stage from 09/26/2021:Stage IA(pT1b, pN0(sn), cM0, G2, ER+, SD+, HER2-) - Signed by Ebony Masters MD [...] on file Legal Sex Female 7:22 AM FRONT DESK Gender Identity Not on file Sexual Orientation [...] Insurance MEDICARE SOLUTIONS MEDICARE SOLUTIONS Care Teams Sugar Cane Planter Relationship Specialty [place] [address] [place] [address] [id number] PCP - General Internal Medicine 08/31/21 Richardson Correa PA [address] [place] [address] [phone] Internal Medicine 08/31/21 Aris Meyer MD [address] [place] [address] Consulting Physician Cardiology 08/31/21 Ghanshyam Calixto DO [address] [address] Medical Oncologist/Carrier Driver Hematology and Oncology 08/31/21 Domingo Bearden MD [address] [facility] [address] [place] [address] Surgeon General Surgery 08/31/21 Ebony Masters MD [address] [facility] [address] [place] [address] Radiation Oncologist Radiation Oncology 05/14/24
--- NOTE | 2024-10-21 15:17 | ED_ITS ---
HPI - General Adult General Chief complaint: Extremity Problem,Nontraumatic <Kelsi Murry January, [employer] TILE REPAIRER - Last Filed: 10/21/24 18:39> Stated complaint: thigh feels weird <Kelsi Murry January, [employer]ORY TILE REPAIRER - Last Filed: 10/21/24 18:39> Time Seen by Provider: 10/21/24 15:18 <Kelsi Murry January, [employer]ORY TILE REPAIRER - Last Filed: 10/21/24 18:39> Focused HPI: Hayden Estrella is a 68 y/o female who presents with reports of being admitted here Sunday for Sepsis/ colon inflamed and was d/c home 3 days ago. She is back today she states she is having burning/ numbness to her right thigh. She states the infection was all on her right side and she said she was sent home before her WBC was better and she wants that rechecked - she states she has 11 more days of antibiotics she is taking. She states she is still having some lower abdominal pain but nothing worse then when she was here. GENERAL: Well-appearing, well-nourished, and in no acute distress. HEAD: Normocephalic, atraumatic. CHEST: Clear to auscultation. ?No respiratory distress. HEART: Regular rate and rhythm.? NEURO: ?Alert and oriented x3. Patient screened in triage and initial orders placed.? ?Additional care and disposition to be based upon?diagnostic testing and treatment. <Kelsi Murry January, [employer] TILE REPAIRER - Last Filed: 10/21/24 18:39> Related Data Home medications: Home Medications ?Medication ?Instructions ?Recorded ?Confirmed ?Last Taken ?Type amlodipine 5 mg tablet 5 mg PO DAILY 10/15/24 10/15/24 10/15/24 History aspirin 81 mg chewable tablet 81 mg PO DAILY 10/15/24 10/15/24 10/14/24 History ezetimibe 10 mg tablet 10 mg PO DAILY 10/15/24 10/15/24 10/14/24 History losartan 100 1 tablet PO DAILY 10/15/24 10/15/24 10/15/24 History mg-hydrochlorothiazide 12.5 mg tablet metoprolol succinate 50 mg 50 mg PO Q12H 10/15/24 10/15/24 10/14/24 History tablet,extended release 24 hr potassium chloride 10 mEq 10 meq PO DAILY 10/15/24 10/15/24 10/14/24 History tablet,extended release pravastatin 40 mg tablet 40 mg PO DAILY 10/15/24 10/15/24 10/14/24 History <Kelsi Murry January, - Last Filed: 10/21/24 18:39> Allergies/adverse reactions: Allergies Allergy/AdvReac Type Severity Reaction Status Date / Time No Known Allergies Allergy Verified 10/21/24 13:26 <Kelsi Murry January, - Last Filed: 10/21/24 18:39> [facility] Past Medical History Medical History: Medical History Nausea and vomiting in adult Leukocytosis Hypokalemia <Kelsi Murry January, - Last Filed: 10/21/24 18:39> Family History Family History: Family History Sibling Lung cancer COVID Diabetes mellitus Father Leukemia Mother Heart trouble <Kelsi Murry January, - Last Filed: 10/21/24 18:39> Social History Social History: Social History Smoking status: Never smoker Alcohol intake: never Substance use: never Do You Feel Safe in your Home?: Yes Lack of Transportation: No Lack of Food: Never True Current Housing: I Have Housing Concerned About Future Housing: No Difficulty Paying Gas/Electric Bills: No Difficulty Paying for Meds: No Currently Unemployed: No Education: Grade School Difficulty w/ Childcare or Family Care: No Spiritual care concerns: No <Kelsi Murry January, - Last Filed: 10/21/24 18:39> Exam 2 Narrative: APPEARANCE: No apparent distress. Head: atraumatic. EYES: EOMI, NOSE: Atraumatic NECK: Trachea midline RESPIRATORY: No increased rate of breathing CARDIOVASCULAR: RRR, ABDOMINAL: Abdomen is tender to palpation in the lowers quadrants and right side. MUSCULOSKELETAl: No obvious deformities NEURO: Alert. Moving 4/4 extremities SKIN:: Warm, dry. Normal color PSYCHIATRIC: Normal affect <Kg Morton MD - Last Filed: 10/21/24 22:21> Course Vital Signs Vital signs: Vital Signs Temperature 96.9 F L 10/21/24 13:33 Pulse Rate 113 H 10/21/24 13:33 Respiratory Rate 18 10/21/24 13:33 Blood Pressure 137/73 10/21/24 13:33 Pulse Oximetry 98 10/21/24 13:33 Oxygen Delivery Room Air 10/21/24 13:33 Temperature 96.9 F L 10/21/24 13:33 Pulse Rate 113 H 10/21/24 13:33 Respiratory Rate 18 10/21/24 13:33 Blood Pressure 137/73 10/21/24 13:33 Pulse Oximetry 98 10/21/24 13:33 Oxygen Delivery Room Air 10/21/24 13:33 <Kelsi Ramires, [employer] TILE REPAIRER - Last Filed: 10/21/24 18:39> Vital Signs Temperature 96.9 F L 10/21/24 13:33 Pulse Rate 113 H 10/21/24 13:33 Respiratory Rate 18 10/21/24 13:33 Blood Pressure 137/73 10/21/24 13:33 Pulse Oximetry 98 10/21/24 13:33 Oxygen Delivery Room Air 10/21/24 13:33 Temperature 96.9 F L 10/21/24 13:33 Pulse Rate 113 H 10/21/24 13:33 Respiratory Rate 18 10/21/24 13:33 Blood Pressure 137/73 10/21/24 13:33 Pulse Oximetry 98 10/21/24 13:33 Oxygen Delivery Room Air 10/21/24 13:33 <Kg Morton MD - Last Filed: 10/21/24 22:21> Medical Decision Making [facility] Narrative Medical decision making narrative: -Course: 68-year-old female presenting with increasing abdominal pain after being discharged on 10/18. Repeat CT showed that she still has the stricture and it is now causing a bowel obstruction. There are also findings concerning for metastatic disease. No vomiting. White count is elevated and she is tachycardic. She will be started on antibiotics and 30cc/kg bolus for sepsis. Dr. Walden was notified. Patient will be admitted for further management. Patient was also complaining of burning and tingling to her right thigh. Exam unremarkable. DVT scan negative. Possibly paresthetica meralgia? -DDX includes but is not limited to: Colitis, neoplasm, bowel obstruction <Kg Morton MD - Last Filed: 10/21/24 22:21> Vital Signs Vital Signs: Vital Signs Temperature 96.9 F L 10/21/24 13:33 Pulse Rate 113 H 10/21/24 13:33 Respiratory Rate 18 10/21/24 13:33 Blood Pressure 137/73 10/21/24 13:33 Pulse Oximetry 98 10/21/24 13:33 Oxygen Delivery Room Air 10/21/24 13:33 Temperature 96.9 F L 10/21/24 13:33 Pulse Rate 113 H 10/21/24 13:33 Respiratory Rate 18 10/21/24 13:33 Blood Pressure 137/73 10/21/24 13:33 Pulse Oximetry 98 10/21/24 13:33 Oxygen Delivery Room Air 10/21/24 13:33 <Kelsi Ramires, [employer] TILE REPAIRER - Last Filed: 10/21/24 18:39> Vital Signs Temperature 96.9 F L 10/21/24 13:33 Pulse Rate 113 H 10/21/24 13:33 Respiratory Rate 18 10/21/24 13:33 Blood Pressure 137/73 10/21/24 13:33 Pulse Oximetry 98 10/21/24 13:33 Oxygen Delivery Room Air 10/21/24 13:33 Temperature 96.9 F L 10/21/24 13:33 Pulse Rate 113 H 10/21/24 13:33 Respiratory Rate 18 10/21/24 13:33 Blood Pressure 137/73 10/21/24 13:33 Pulse Oximetry 98 10/21/24 13:33 Oxygen Delivery Room Air 10/21/24 13:33 <Kg Morton MD - Last Filed: 10/21/24 22:21> Lab Data Result diagrams: 10/21/24 15:50 10/21/24 15:50 <Kelsi Ramires, [employer] TILE REPAIRER - Last Filed: 10/21/24 18:39> Labs: Lab Results 10/21/24 10/21/24 Range/Units 15:50 18:21 WBC 14.3 H (4.5-10.0) K/mm3 RBC 4.71 (4.2-5.4) M/mm3 Hgb 13.3 (12.0-15.0) g/dL Hct 39.9 (37.0-47.0) % MCV 84.7 D (80-100) fl MCH 28.2 (26-34) pg MCHC 33.3 (32-36) g/dl RDW 12.6 (11.5-14.5) % Plt Count 328 (150-375) k/mm3 MPV 9.4 (7.4-10.4) fl Immature Gran % (Auto) 0.6 H (0-0.5) % Neut % (Auto) 74.7 H (45.5-73.1) % Lymph % (Auto) 15.7 L (18.3-44.2) % [place] % (Auto) 8.3 (2.6-8.5) % Eos % (Auto) 0.5 (0-4.4) % Baso % (Auto) 0.2 (0.2-1.2) % Lymph # (Auto) 2.24 (0.9-3.2) K/mm3 [place] # (Auto) 1.2 H (0.1-0.6) K/mm3 Eos # (Auto) 0.1 (0-0.3) K/mm3 Baso # (Auto) 0.0 (0.0-0.1) K/mm3 Abs Immat Gran (auto) 0.09 H (0.00-0.031) K/mm3 Absolute Neuts (auto) 10.7 H (1.3-6.7) K/mm3 Absolute Nucleated RBC 0.000 (0.0-0.012) K/mm3 Nucleated RBC % 0.0 (0.0-0.2) % Sodium 137 (137-145) mmol/L Potassium 2.8 L* (3.4-5.0) mmol/L Chloride 100 (98-107) mmol/L Carbon Dioxide 26 (22-30) mmol/L Anion Gap 11 (4-12) mmol/L BUN 14 (7-17) mg/dL Creatinine 0.57 L (0.7-1.0) mg/dL Estim Creat Clear Calc 80 ml/min Estimated GFR > 60 (59 - ) Glucose 136 H (65-110) mg/dL Calcium 9.1 (8.4-10.2) mg/dL Total Bilirubin 0.8 (0.2-1.3) mg/dL AST 29 (14-36) U/L ALT 26 (6-35) U/L Alkaline Phosphatase 96 (38-126) U/L Total Protein 7.0 (6.3-8.2) g/dL Albumin 3.9 (3.5-5.1) g/dL Urine Color Dark yellow (Yellow) Urine Appearance Cloudy H (Clear) Urine pH 5.0 (5.0-9.0) Ur Specific [place] 1.028 (1.001-1.035) Urine Protein 1+ H (Negative) mg/dL Urine Glucose (UA) Negative (Negative) mg/dL Urine Ketones Trace H (Negative) mg/dL Ur Blood (Man) Negative (Negative) Urine Nitrate Positive H (Negative) Urine Bilirubin 1+ H (Negative) Urine Urobilinogen 0.2 (<2.0) mg/dL Add Ur Microanalysis Reviewed Leukocyte Esterase Rfl 1+ H (Negative) JULIAN/UL Urine RBC 0-2 (0-2) /hpf Urine WBC 0-5 (0-3) /hpf Ur Squamous Epith Cells Many H (Few) /hpf Calcium Oxalate Crystal Present (None) /hpf Urine Bacteria None seen /hpf Urine Casts 3-5 Urine Mucus Present /lpf <Kelsi Murry January, [employer] TILE REPAIRER - Last Filed: 10/21/24 18:39> Lab Results 10/21/24 10/21/24 Range/Units 15:50 18:21 WBC 14.3 H (4.5-10.0) K/mm3 RBC 4.71 (4.2-5.4) M/mm3 Hgb 13.3 (12.0-15.0) g/dL Hct 39.9 (37.0-47.0) % MCV 84.7 D (80-100) fl MCH 28.2 (26-34) pg MCHC 33.3 (32-36) g/dl RDW 12.6 (11.5-14.5) % Plt Count 328 (150-375) k/mm3 MPV 9.4 (7.4-10.4) fl Immature Gran % (Auto) 0.6 H (0-0.5) % Neut % (Auto) 74.7 H (45.5-73.1) % Lymph % (Auto) 15.7 L (18.3-44.2) % [place] % (Auto) 8.3 (2.6-8.5) % Eos % (Auto) 0.5 (0-4.4) % Baso % (Auto) 0.2 (0.2-1.2) % Lymph # (Auto) 2.24 (0.9-3.2) K/mm3 [place] # (Auto) 1.2 H (0.1-0.6) K/mm3 Eos # (Auto) 0.1 (0-0.3) K/mm3 Baso # (Auto) 0.0 (0.0-0.1) K/mm3 Abs Immat Gran (auto) 0.09 H (0.00-0.031) K/mm3 Absolute Neuts (auto) 10.7 H (1.3-6.7) K/mm3 Absolute Nucleated RBC 0.000 (0.0-0.012) K/mm3 Nucleated RBC % 0.0 (0.0-0.2) % Sodium 137 (137-145) mmol/L Potassium 2.8 L* (3.4-5.0) mmol/L Chloride 100 (98-107) mmol/L Carbon Dioxide 26 (22-30) mmol/L Anion Gap 11 (4-12) mmol/L BUN 14 (7-17) mg/dL Creatinine 0.57 L (0.7-1.0) mg/dL Estim Creat Clear Calc 80 ml/min Estimated GFR > 60 (59 - ) Glucose 136 H (65-110) mg/dL Calcium 9.1 (8.4-10.2) mg/dL Total Bilirubin 0.8 (0.2-1.3) mg/dL AST 29 (14-36) U/L ALT 26 (6-35) U/L Alkaline Phosphatase 96 (38-126) U/L Total Protein 7.0 (6.3-8.2) g/dL Albumin 3.9 (3.5-5.1) g/dL Urine Color Dark yellow (Yellow) Urine Appearance Cloudy H (Clear) Urine pH 5.0 (5.0-9.0) Ur Specific [place] 1.028 (1.001-1.035) Urine Protein 1+ H (Negative) mg/dL Urine Glucose (UA) Negative (Negative) mg/dL Urine Ketones Trace H (Negative) mg/dL Ur Blood (Man) Negative (Negative) Urine Nitrate Positive H (Negative) Urine Bilirubin 1+ H (Negative) Urine Urobilinogen 0.2 (<2.0) mg/dL Add Ur Microanalysis Reviewed Leukocyte Esterase Rfl 1+ H (Negative) JULIAN/UL Urine RBC 0-2 (0-2) /hpf Urine WBC 0-5 (0-3) /hpf Ur Squamous Epith Cells Many H (Few) /hpf Calcium Oxalate Crystal Present (None) /hpf Urine Bacteria None seen /hpf Urine Casts 3-5 Urine Mucus Present /lpf <Kg Morton MD - Last Filed: 10/21/24 22:21> Discharge Plan Discharge Clinical Impression: Bowel obstruction, Sepsis, Stricture intestinal <Kelsi Ramires APRN - Last Filed: 10/21/24 18:39> Patient Disposition: Still a Patient <Kelsi Ramires APRN - Last Filed: 10/21/24 18:39> Condition: Guarded Prognosis <Kelsi Ramires APRN - Last Filed: 10/21/24 18:39> Patient Language: Syrian <Kelsi Ramires APRN - Last Filed: 10/21/24 18:39> Prescriptions: No Action amlodipine 5 mg tablet 5 mg PO DAILY ezetimibe 10 mg tablet 10 mg PO DAILY losartan-hydrochlorothiazide 100-12.5 mg tablet 1 tablet PO DAILY metoprolol succinate 50 mg tablet extended release 24 hr 50 mg PO Q12H potassium chloride 10 mEq tablet extended release 10 meq PO DAILY pravastatin 40 mg tablet 40 mg PO DAILY aspirin 81 mg tablet,chewable 81 mg PO DAILY levofloxacin 750 mg tablet 750 mg PO DAILY 11 Days Qty: 11 0RF metronidazole 500 mg tablet 500 mg PO Q8H 11 Days Qty: 33 0RF oxycodone-acetaminophen 7.5-325 mg tablet 1 tablet PO Q6H PRN (Reason: pain) 5 Days Qty: 7 0RF <Kelsi Ramires APRN - Last Filed: 10/21/24 18:39> Follow-up/Referrals: Sharon,Emperatriz Myers MD [Primary Care Provider] - <Kelsi Ramires APRN - Last Filed: 10/21/24 18:39>
--- OUTSIDE RECORDS SUMMARY | 2024-10-21 15:47 | XMS_ITS | Clinical Summary ---
Author Organization [facility] Address [address] [place] [address] Care Team Providers Care Farm Service Consultant Name Role Phone Richardson Correa Primary Care Provider + Richardson Correa Unavailable [phone] Aris Meyer MD Unavailable Ghanshyam Calixto DO Unavailable [phone] Domingo Bearden MD Unavailable [phone] Ebony Masters MD Unavailable [phone] Allergies No known active allergies Medications diclofenac [...] from 05/26/2021:Stage IB(cT2, cN0, cM0, G2, ER+, AL+, HER2-) - Signed by Ebony Masters MD on 08/31/2021 Pathologic stage from 09/26/2021:Stage IA(pT1b, pN0(sn), cM0, G2, ER+, AL+, HER2-) - Signed by Ebony Masters MD on 10/12/2021 Malignant neoplasm of upper- outer quadrant of left breast in female, estrogen receptor positive 08/10/2021 Immunizations Name Administration Dates Next Due Moderna SARS-CoV-2 Monovalen t Vaccination (12+ YRS) 07/18/2021,12/27/2020,11/30/2020 Pneumococcal Conjugate PCV 13 08/12/2021 Surgical History Surgery Date Site/Laterality Comments HYSTERECTOMY AL LIG/TRNSXJ FLP TUBE ABDL/VAG APPR UNI/BI Tubal Ligation - (Added by TW Conv) AL SALPINGO-OOPHORECTOMY COMPL/PRTL UNI/BI SPX Salpingo-oophorectomy Left Side - (Added by TW Conv) AL COLPOPEXY ABDOMINAL APPROACH Vaginal Surgery Colpopexy Abdominal [...] on file Legal Sex Female 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 Gender Identity Not on file Sexual Orientation [...] or Tdap) 02/02/2026 02/03/2016 Insurance [employer]IONS [place] [id number] [employer] [place] [id number] Care Teams Farm Service Consultant Relationship Specialty [place] [address] [place] [id number] PCP - General Internal Medicine 08/31/21 [place] [address] [place] [id number] Internal Medicine 08/31/21 Aris Meyer MD [address] [place] [address] Consulting Physician Cardiology 08/31/21 Ghanshyam Calixto DO [address] [place] [address] [id number] Medical Oncologist/Processor Solid Propellant Hematology and Oncology 08/31/21 Domingo Bearden MD [address] [place] [address] [address] [place] [address] Surgeon General Surgery 08/31/21 Ebony Masters MD [facility] [address] [place] [address] Radiation Oncologist Radiation Oncology 05/14/24
--- OUTSIDE RECORDS SUMMARY | 2024-10-21 15:47 | XMS_ITS | Referral Summary ---
Author Organization [facility] Address [address] [place] [address] Care Team Providers Care Maintenance Controller Name Role Phone Richardson Correa Primary Care Provider + Richardson Correa Unavailable [phone] Aris Meyer MD Unavailable Ghanshyam Calixto DO Unavailable [phone] Domingo Bearden MD Unavailable [phone] Ebony Masters MD Unavailable [phone] Allergies No known active allergies Medications diclofenac [...] from 05/26/2021:Stage IB(cT2, cN0, cM0, G2, ER+, NM+, HER2-) - Signed by Ebony Masters MD on 08/31/2021 Pathologic stage from 09/26/2021:Stage IA(pT1b, pN0(sn), cM0, G2, ER+, NM+, HER2-) - Signed by Ebony Masters MD [...] on file Legal Sex Female 7:22 AM 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 Gender Identity Not on file Sexual Orientation [...] Insurance MED[employer] SOL[employer]IONS [employer] Care Teams Maintenance Controller Relationship Specialty [place] [address] [place] [address] [id number] PCP - General Internal Medicine 08/31/21 Richardson Correa PA [address] [place] [address] [phone] Internal Medicine 08/31/21 Aris Meyer MD [address] [place] [address] Consulting Physician Cardiology 08/31/21 Ghanshyam Calixto DO [address] [address] Medical Oncologist/Research Program Coordinator Hematology and Oncology 08/31/21 Domingo Bearden MD [address] [facility] [address] [place] [address] Surgeon General Surgery 08/31/21 Ebony Masters MD [address] [facility] [address] [place] [address] Radiation Oncologist Radiation Oncology 05/14/24
--- OUTSIDE RECORDS SUMMARY | 2024-10-21 15:47 | XMS_ITS ---
Author Organization [facility] Address [address] [place] [address] Care Team Providers Care Hall Porter Name Role Phone Richardson Correa Primary Care Provider + Richardson Correa Unavailable [phone] Aris Meyer MD Unavailable Ghanshyam Calixto DO Unavailable [phone] Domingo Bearden MD Unavailable [phone] Ebony Masters MD Unavailable [phone] Active Problems Problem Noted Date Diagnosed Date Personal history of radiation therapy 12/26/2021 Malignant neoplasm of upper- outer quadrant of left breast in female, estrogen receptor positive 08/31/2021 Cancer Staging:Clinical stage from 05/26/2021:Stage IB(cT2, cN0, cM0, G2, ER+, [place]+, HER2-) - Signed by Ebony Masters MD on 08/31/2021 Pathologic stage from 09/26/2021:Stage IA(pT1b, pN0(sn), cM0, G2, ER+, [place]+, HER2-) - Signed by Ebony Masters MD [...]
--- OUTSIDE RECORDS SUMMARY | 2024-10-21 15:47 | XMS_ITS | Clinical Summary ---
Author Organization [facility] Address [facility] [facility] [place] [address] [place] [address] Care Team Providers Care Chef De Partie Name Role Phone Richardson Correa Primary Care Provider + Aris Meyer MD Unavailable [phone] Allergies No known active allergies Medications [...] Comments Blood Pressure 167/88 09/26/2021 4:12 PM HOSPITAL ADMISSIONS CLERK Pulse 99 09/26/2021 4:12 PM HOSPITAL ADMISSIONS CLERK Temperature 37 ??C (98.6 ??F) 09/26/2021 4:12 PM HOSPITAL ADMISSIONS CLERK Respiratory Rate 20 09/26/2021 4:12 PM HOSPITAL ADMISSIONS CLERK Oxygen Saturation 93% 09/26/2021 4:12 PM HOSPITAL ADMISSIONS CLERK Inhaled Oxygen Concentration - - Weight 88.4 kg (194 lb 14.2 oz) 022 11:00 AM HOSPITAL ADMISSIONS CLERK Height 154.9 cm (5' 1 ) 09/26/2021 11:0 0 AM HOSPITAL ADMISSIONS CLERK Body Mass Index 36.82 09/26/2021 11:00 AM HOSPITAL ADMISSIONS CLERK Plan of Treatment Health Maintenance Due Date [...] patient's age to complete this topic Insurance [facility] Care Teams Chef De Partie Relationship Specialty Start Date End Date Richardson Correa PA PCP - General PHYSICIAN DIRECTOR CONSUMER 09/13/21 [place] [address] [place] [id number] CARDIOVASCULAR DISEASE 09/13/21
[2024-10-21 15:56] LABS: Basophils Percent Auto 0.2 % (0.2-1.2); Eosinophils Absolute Auto 0.1 K/mm3 (0-0.3); Eosinophils Percent Auto 0.5 % (0-4.4); Hematocrit 39.9 % (37.0-47.0); Hemoglobin 13.3 g/dL (12.0-15.0); Immature Granulocyte Absolute 0.09 K/mm3 (0.00-0.031); Immature Granulocyte Percent A 0.6 % (0-0.5); Lymphocytes Absolute Auto 2.24 K/mm3 (0.9-3.2); Lymphocytes Percent Auto 15.7 % (18.3-44.2); Mean Corpuscular HGB Conc 33.3 g/dl (32-36); Mean Corpuscular Hemoglobin 28.2 pg (26-34); Mean Corpuscular Volume 84.7 fl (80-100); Mean Platelet Volume 9.4 fl (7.4-10.4); Monocytes Absolute Auto 1.2 K/mm3 (0.1-0.6); Monocytes Percent Auto 8.3 % (2.6-8.5); Neutrophils Absolute Auto 10.7 K/mm3 (1.3-6.7); Neutrophils Percent Auto 74.7 % (45.5-73.1); Platelet Count Result 328 k/mm3 (150-375); Red Blood Count 4.71 M/mm3 (4.2-5.4); Red Cell Distribution Width 12.6 % (11.5-14.5); White Blood Count 14.3 K/mm3 (4.5-10.0)
[2024-10-21 16:20] LABS: Alanine Aminotransferase 26 U/L (6-35); Albumin Level 3.9 g/dL (3.5-5.1); Alkaline Phosphatase 96 U/L (38-126); Anion Gap 11 mmol/L (4-12); Aspartate Amino Transferase 29 U/L (14-36); Bilirubin,Total 0.8 mg/dL (0.2-1.3); Blood Urea Nitrogen 14 mg/dL (7-17); Calcium 9.1 mg/dL (8.4-10.2); Carbon Dioxide 26 mmol/L (22-30); Chloride 100 mmol/L (98-107); Estimated CRCL calculation 80 ml/min; Estimated Glomerular Filt Rate > 60; Glucose 136 mg/dL (65-110); Potassium 2.8 mmol/L (3.4-5.0); Sodium 137 mmol/L (137-145)
[2024-10-21] MEDS: POTASSIUM CHLORIDE 20 MEQ ER TABLET 40 MEQ PO (16:38)
[2024-10-21] MEDS: KETOROLAC 15 MG/ML VIAL (*BKC) IV PUSH (18:01)
[2024-10-21] MEDS: POTASSIUM CHLORIDE 20 MEQ PACKET (FOR LIQUID) 40 MEQ PO (18:02)
[2024-10-21 19:19] LABS: Add Urine Microscopic? YES; Appearance Urine Cloudy (Clear); Bacteria Urine None Seen /hpf; Bilirubin Urine 1+ (Negative); Blood Urine Negative (Negative); Calcium Oxalate Crystals Urine Present /hpf; Color Urine Dark Yellow (Yellow); Glucose Urine UA Negative (Negative); Ketones Urine Trace mg/dL (Negative); Leukocyte Esterase Ur 1+ LEU/UL (Negative); Mucus Urine Present /lpf; Need Manual Microscopic Reviewed; Nitrate Urine Positive (Negative); Protein Urine 1+ mg/dL (Negative); RBC Urine 0-2 /hpf (0-2); Specific Grav Ur 1.028 (1.001-1.035); Squamous Epithelial Cell Urine Many /hpf (Few); Urobilinogen Urine 0.2 mg/dL (<2.0); WBC Urine 0-5 /hpf (0-3)
--- NOTE | 2024-10-21 20:31 | ED_ITS ---
HPI - General Adult General Chief complaint: Extremity Problem,Nontraumatic Stated complaint: thigh feels weird Time Seen by Provider: 10/21/24 15:18 Related Data Home Medications ?Medication ?Instructions ?Recorded ?Confirmed ?Last Taken ?Type amlodipine 5 mg tablet 5 mg PO DAILY 10/15/24 10/15/24 10/15/24 History aspirin 81 mg chewable tablet 81 mg PO DAILY 10/15/24 10/15/24 10/14/24 History ezetimibe 10 mg tablet 10 mg PO DAILY 10/15/24 10/15/24 10/14/24 History losartan 100 1 tablet PO DAILY 10/15/24 10/15/24 10/15/24 History mg-hydrochlorothiazide 12.5 mg tablet metoprolol succinate 50 mg 50 mg PO Q12H 10/15/24 10/15/24 10/14/24 History tablet,extended release 24 hr potassium chloride 10 mEq 10 meq PO DAILY 10/15/24 10/15/24 10/14/24 History tablet,extended release pravastatin 40 mg tablet 40 mg PO DAILY 10/15/24 10/15/24 10/14/24 History Allergies Allergy/AdvReac Type Severity Reaction Status Date / Time No Known Allergies Allergy Verified 10/21/24 13:26 [facility] Past Medical History Medical History (Updated 10/18/24 @ 09:02 by Ramos Capellan MD) Nausea and vomiting in adult Leukocytosis Hypokalemia Family History Family History (Updated 10/15/24 @ 15:00 by Denia Diaz RN) Sibling Lung cancer COVID Diabetes mellitus Father Leukemia Mother Heart trouble Social History Social History Smoking status: Never smoker Alcohol intake: never Substance use: never Do You Feel Safe in your Home?: Yes Lack of Transportation: No Lack of Food: Never True Current Housing: I Have Housing Concerned About Future Housing: No Difficulty Paying Gas/Electric Bills: No Difficulty Paying for Meds: No Currently Unemployed: No Education: Grade School Difficulty w/ Childcare or Family Care: No Spiritual care concerns: No Course Vital Signs Vital signs: Vital Signs Temperature 96.9 F L 10/21/24 13:33 Pulse Rate 113 H 10/21/24 13:33 Respiratory Rate 18 10/21/24 13:33 Blood Pressure 137/73 10/21/24 13:33 Pulse Oximetry 98 10/21/24 13:33 Oxygen Delivery Room Air 10/21/24 13:33 Temperature 96.9 F L 10/21/24 13:33 Pulse Rate 113 H 10/21/24 13:33 Respiratory Rate 18 10/21/24 13:33 Blood Pressure 137/73 10/21/24 13:33 Pulse Oximetry 98 10/21/24 13:33 Oxygen Delivery Room Air 10/21/24 13:33 Medical Decision Making Vital Signs Vital Signs: Vital Signs Temperature 96.9 F L 10/21/24 13:33 Pulse Rate 113 H 10/21/24 13:33 Respiratory Rate 18 10/21/24 13:33 Blood Pressure 137/73 10/21/24 13:33 Pulse Oximetry 98 10/21/24 13:33 Oxygen Delivery Room Air 10/21/24 13:33 Temperature 96.9 F L 10/21/24 13:33 Pulse Rate 113 H 10/21/24 13:33 Respiratory Rate 18 10/21/24 13:33 Blood Pressure 137/73 10/21/24 13:33 Pulse Oximetry 98 10/21/24 13:33 Oxygen Delivery Room Air 10/21/24 13:33 Lab Data 10/21/24 15:50 10/21/24 15:50 Labs: Lab Results 10/21/24 10/21/24 Range/Units 15:50 18:21 WBC 14.3 H (4.5-10.0) K/mm3 RBC 4.71 (4.2-5.4) M/mm3 Hgb 13.3 (12.0-15.0) g/dL Hct 39.9 (37.0-47.0) % MCV 84.7 D (80-100) fl MCH 28.2 (26-34) pg MCHC 33.3 (32-36) g/dl RDW 12.6 (11.5-14.5) % Plt Count 328 (150-375) k/mm3 MPV 9.4 (7.4-10.4) fl Immature Gran % (Auto) 0.6 H (0-0.5) % Neut % (Auto) 74.7 H (45.5-73.1) % Lymph % (Auto) 15.7 L (18.3-44.2) % [place] % (Auto) 8.3 (2.6-8.5) % Eos % (Auto) 0.5 (0-4.4) % Baso % (Auto) 0.2 (0.2-1.2) % Lymph # (Auto) 2.24 (0.9-3.2) K/mm3 [place] # (Auto) 1.2 H (0.1-0.6) K/mm3 Eos # (Auto) 0.1 (0-0.3) K/mm3 Baso # (Auto) 0.0 (0.0-0.1) K/mm3 Abs Immat Gran (auto) 0.09 H (0.00-0.031) K/mm3 Absolute Neuts (auto) 10.7 H (1.3-6.7) K/mm3 Absolute Nucleated RBC 0.000 (0.0-0.012) K/mm3 Nucleated RBC % 0.0 (0.0-0.2) % Sodium 137 (137-145) mmol/L Potassium 2.8 L* (3.4-5.0) mmol/L Chloride 100 (98-107) mmol/L Carbon Dioxide 26 (22-30) mmol/L Anion Gap 11 (4-12) mmol/L BUN 14 (7-17) mg/dL Creatinine 0.57 L (0.7-1.0) mg/dL Estim Creat Clear Calc 80 ml/min Estimated GFR > 60 (59 - ) Glucose 136 H (65-110) mg/dL Calcium 9.1 (8.4-10.2) mg/dL Total Bilirubin 0.8 (0.2-1.3) mg/dL AST 29 (14-36) U/L ALT 26 (6-35) U/L Alkaline Phosphatase 96 (38-126) U/L Total Protein 7.0 (6.3-8.2) g/dL Albumin 3.9 (3.5-5.1) g/dL Urine Color Dark yellow (Yellow) Urine Appearance Cloudy H (Clear) Urine pH 5.0 (5.0-9.0) Ur Specific [place] 1.028 (1.001-1.035) Urine Protein 1+ H (Negative) mg/dL Urine Glucose (UA) Negative (Negative) mg/dL Urine Ketones Trace H (Negative) mg/dL Ur Blood (Man) Negative (Negative) Urine Nitrate Positive H (Negative) Urine Bilirubin 1+ H (Negative) Urine Urobilinogen 0.2 (<2.0) mg/dL Add Ur Microanalysis Reviewed Leukocyte Esterase Rfl 1+ H (Negative) JULIAN/UL Urine RBC 0-2 (0-2) /hpf Urine WBC 0-5 (0-3) /hpf Ur Squamous Epith Cells Many H (Few) /hpf Calcium Oxalate Crystal Present (None) /hpf Urine Bacteria None seen /hpf Urine Casts 3-5 Urine Mucus Present /lpf Discharge Plan Discharge Patient Language: [place] Prescriptions: No Action amlodipine 5 mg tablet 5 mg PO DAILY ezetimibe 10 mg tablet 10 mg PO DAILY losartan-hydrochlorothiazide 100-12.5 mg tablet 1 tablet PO DAILY metoprolol succinate 50 mg tablet extended release 24 hr 50 mg PO Q12H potassium chloride 10 mEq tablet extended release 10 meq PO DAILY pravastatin 40 mg tablet 40 mg PO DAILY aspirin 81 mg tablet,chewable 81 mg PO DAILY levofloxacin 750 mg tablet 750 mg PO DAILY 11 Days Qty: 11 0RF metronidazole 500 mg tablet 500 mg PO Q8H 11 Days Qty: 33 0RF oxycodone-acetaminophen 7.5-325 mg tablet 1 tablet PO Q6H PRN (Reason: pain) 5 Days Qty: 7 0RF Follow-up/Referrals: Sharon,Emperatriz Myers MD [Primary Care Provider] -
[2024-10-21] MEDS: SODIUM CHLORIDE 0.9% IV 2,500 ML 999 ML IV CONT (20:48)
[2024-10-21] MEDS: PIPERACILLN/TAZ 3.375GM/NS50ML 3.375 GM/50 ML BAG IVPB (21:50)
[2024-10-21] MEDS: HYDROmorphone HCL INJ (*CRX) 1 MG/ML SYR 0.5 MG IV PUSH (21:50)
--- NOTE | 2024-10-21 22:01 | PM.IMHP ---
H&P: HPI History of Present Illness Date/Time: 10/21/24 22:01 Chief Complaint: Abdominal pain Narrative: This is a 68-year-old female with past medical history significant for hypertension, obesity, recently discharged from [facility] [place] after she was treated for urinary tract infection. Presents to the emergency room due to right-sided abdominal pain, colic in nature, patient has had diarrhea, denies any fevers rigors or chills, patient denies any melena, coffee-ground emesis, bright red blood per rectum. Preliminary workup was significant for CT of abdomen and pelvis with colonic stricture suspicious for malignancy. Patient has been placed in observation for further evaluation management and treatment. EXAMINATION: US venous doppler LE RT DATE: 10/21/2024 15:44 INDICATION: Right lower limb swelling TECHNIQUE: Grayscale ultrasound images without and with compression and Doppler ultrasound images of the right lower extremity veins were obtained. COMPARISON: None. FINDINGS: The visualized portions of right common femoral vein, profunda (deep) femoral vein, femoral vein, popliteal vein, posterior tibial veins, peroneal veins, gastrocnemius vein and greater saphenous vein outflow are patent. IMPRESSION: 1. No deep venous thrombosis in the right lower limb. EXAMINATION: CT abdomen pelvis w con DATE: 10/21/2024 20:36 INDICATION: Colitis. Sepsis. TECHNIQUE: Computed tomography (CT) of the abdomen and pelvis was performed with 100 mL Omnipaque 350 intravenous contrast. Automated exposure control and iterative reconstruction technique were employed. The dose-length product was 1026.91 mGy-cm. COMPARISON: CT abdomen and pelvis 10/15/2024 FINDINGS: The visualized portions of the lung bases demonstrate mild atelectasis. No pleural effusion. The heart size is normal. There are coronary artery calcifications. No pericardial effusion. There is a small sliding hiatal hernia. There are surgical changes in left breast. The liver is normal. There is a gallstone in the gallbladder, which is normal in size. The spleen, pancreas, adrenal glands, and kidneys are normal. There is an 8 mm mass in right kidney, which is too small for further evaluation, probably a hemorrhagic cyst. There is a 5 mm cyst in left kidney. There is focal wall thickening and small caliber of the transverse colon. The colon is dilated proximal to this area, consistent with obstruction. The small bowel is normal in caliber. There is nodularity of the peritoneum in the upper abdomen. There is mild aortocaval lymphadenopathy. There is no free intraperitoneal fluid. There is mild thoracic and lumbar spondylosis. IMPRESSION: 1. Persistent stricture of the transverse colon with bowel obstruction suspicious for primary malignancy. 2. Nodularity of the peritoneum in the upper abdomen suspicious for peritoneal carcinomatosis. 3. Mild aortocaval lymphadenopathy suspicious for metastatic disease. Review of Systems Review of Systems: Right flank pain PMFSH Past Medical History Medical History Nausea and vomiting in adult Leukocytosis Hypokalemia Family History Family History Sibling Lung cancer COVID Diabetes mellitus Father Leukemia Mother Heart trouble Social History Social History Smoking status: Never smoker Alcohol intake: never Substance use: never Do You Feel Safe in your Home?: Yes Lack of Transportation: No Lack of Food: Never True Current Housing: I Have Housing Concerned About Future Housing: No Difficulty Paying Gas/Electric Bills: No Difficulty Paying for Meds: No Currently Unemployed: No Education: Grade School Difficulty w/ Childcare or Family Care: No Spiritual care concerns: No Meds Home Medications and Allergies Home Medications ?Medication ?Instructions ?Recorded ?Confirmed ?Type amlodipine 5 mg tablet 5 mg PO DAILY 10/15/24 10/15/24 History aspirin 81 mg chewable tablet 81 mg PO DAILY 10/15/24 10/15/24 History ezetimibe 10 mg tablet 10 mg PO DAILY 10/15/24 10/15/24 History losartan 100 1 tablet PO DAILY 10/15/24 10/15/24 History mg-hydrochlorothiazide 12.5 mg tablet metoprolol succinate 50 mg 50 mg PO Q12H 10/15/24 10/15/24 History tablet,extended release 24 hr potassium chloride 10 mEq 10 meq PO DAILY 10/15/24 10/15/24 History tablet,extended release pravastatin 40 mg tablet 40 mg PO DAILY 10/15/24 10/15/24 History levofloxacin 750 mg tablet 750 mg PO DAILY 11 days #11 tabs 10/18/24 Rx metronidazole 500 mg tablet 500 mg PO Q8H 11 days #33 tabs 10/18/24 Rx oxycodone-acetaminophen 7.5 mg-325 1 tablet PO Q6H PRN pain 5 days #7 10/18/24 Rx mg tablet tabs Allergies Allergy/AdvReac Type Severity Reaction Status Date / Time No Known Allergies Allergy Verified 10/21/24 13:26 Vital Signs Vital Signs - 24 hr 10/21/24 13:33 Temperature 96.9 F L Pulse Rate 113 H Respiratory Rate 18 Blood Pressure 137/73 Pulse Oximetry 98 Oxygen Delivery Room Air Exam Narrative: Sitting in a stretcher Const: General: comfortable, no acute distress, well developed, alert, awake, ill appearing acutely and obese Nutritional Appearance: obese Orientation/consciousness: patient oriented x3 HENMT: Head: normal to inspection, normocephalic and atraumatic Ears: hearing grossly normal bilaterally Face/Nose/Sinus: normal facial exam Face and sinus: normal facial exam Eyes: General: appearance normal, both eyes and all related structures Pupils: Equal, round and reactive pupils present EOM: EOMs intact bilaterally Neck: Neck: full ROM, no lymphadenopathy and no JVD Thyroid: thyroid normal Lymphatic: no lymphadenopathy noted Resp: Effort & Inspection: normal respiratory effort and able to speak in complete sentences Auscultation: clear to auscultation bilaterally Cardio: Jugular venous distension: no JVD Rate: regular rate Rhythm: regular rhythm Heart sounds: S1 normal heart sound present and S2 normal heart sound present GI: Inspection: Pannus present, obesity and no visible herniation GI Palp: Yes Soft to palpation and Yes No hepatosplenomegaly present : General: Yes deferred Skin: Rashes: no rashes Wounds: no wounds Neuro: General: patient oriented x3 and CN's II-XI intact bilaterally Cranial nerves: Yes CN's II-XII intact bilaterally and Yes Equal, round and reactive pupils present Cognition (Neuro): normal cognition Speech: normal speech Gait exam (Neuro): Normal gait present Motor exam (neuro): 5/5 motor strength present throughout Extrem: General: normal to inspection, full ROM, no joint enlargement and no pedal edema H&P: Results Labs Labs: Short CBC 10/21/24 Range/Units 15:50 WBC 14.3 H (4.5-10.0) K/mm3 Hgb 13.3 (12.0-15.0) g/dL Hct 39.9 (37.0-47.0) % Plt Count 328 (150-375) k/mm3 BMP 10/21/24 15:50 Sodium 137 Potassium 2.8 L* Chloride 100 Carbon Dioxide 26 BUN 14 Creatinine 0.57 L Glucose 136 H Calcium 9.1 Liver Function 10/21/24 Range/Units 15:50 Total Bilirubin 0.8 (0.2-1.3) mg/dL AST 29 (14-36) U/L ALT 26 (6-35) U/L Alkaline Phosphatase 96 (38-126) U/L Albumin 3.9 (3.5-5.1) g/dL Urine 10/21/24 Range/Units 18:21 Urine Color Dark yellow (Yellow) Urine Appearance Cloudy H (Clear) Urine pH 5.0 (5.0-9.0) Ur Specific [place] 1.028 (1.001-1.035) Urine Protein 1+ H (Negative) mg/dL Urine Glucose (UA) Negative (Negative) mg/dL Assessment and Plan Assessment and plan (1) Bowel obstruction: Code(s): K56.609 - Unspecified intestinal obstruction, unspecified as to partial versus complete obstruction Status: Acute Assessment and Plan: Admit to regular medical floor NPO GI consult (2) Abdominal pain: Code(s): R10.9 - Unspecified abdominal pain Status: Acute Assessment and Plan: Likely secondary to obstruction Supportive care (3) Nausea and vomiting in adult: Code(s): R11.2 - Nausea with vomiting, unspecified Status: Acute Assessment and Plan: NPO Supportive care (4) Stricture intestinal: Code(s): K56.699 - Other intestinal obstruction unspecified as to partial versus complete obstruction Status: Acute Assessment and Plan: Suspicious for malignancy Hospitalist MIPS Advance Care Plan I have confirmed that the patient's Advanced Care Plan is present, code status is documented, or surrogate decision maker is listed in patient medical record.: Yes Medication Reconciliation I have utilized all available resources to obtain, update and review the patients current medications (includes all prescriptions, OTC, herbals, cannabis, and nutritional supplements).: Yes
--- NOTE | 2024-10-21 23:18 | PC.NURSE ---
This RN offered pt hospital bed at this time d/t borded status. Pt stated she would like to stay on stretcher, but would notify this RN if she changes her mind. Call light within reach and lights dimmed at this time.
[2024-10-22] VITALS (10 sets, daily range): BP systolic 132–154; BP diastolic 78–81; PULSE 80–115; RESP 14–19; TEMP 36.1–36.3; O2SAT 93–96; BMI 36.5
--- NOTE | 2024-10-22 01:10 | PC.NURSE ---
IV IN L AC REMOVED BY THIS RN D/T PT HX OF BREAST CANCER AND MASTECTOMY. LIMB ALERT BRACELET APPLIED. NEW IV ESTABLISHED IN R AC.
[2024-10-22] MEDS: PIPERACILLN/TAZ 3.375GM/NS50ML 3.375 GM/50 ML BAG IVPB ×3 (06:10→17:14)
[2024-10-22 06:13] LABS: Basophils Percent Auto 0.2 % (0.2-1.2); Eosinophils Absolute Auto 0.1 K/mm3 (0-0.3); Hematocrit 34.5 % (37.0-47.0); Hemoglobin 11.4 g/dL (12.0-15.0); Immature Granulocyte Absolute 0.06 K/mm3 (0.00-0.031); Immature Granulocyte Percent A 0.6 % (0-0.5); Lymphocytes Absolute Auto 2.09 K/mm3 (0.9-3.2); Lymphocytes Percent Auto 20.6 % (18.3-44.2); Mean Corpuscular Hemoglobin 28.7 pg (26-34); Mean Corpuscular Volume 86.9 fl (80-100); Mean Platelet Volume 9.7 fl (7.4-10.4); Monocytes Percent Auto 9.4 % (2.6-8.5); Neutrophils Absolute Auto 6.9 K/mm3 (1.3-6.7); Neutrophils Percent Auto 68.2 % (45.5-73.1); Platelet Count Result 269 k/mm3 (150-375); Red Blood Count 3.97 M/mm3 (4.2-5.4); Red Cell Distribution Width 12.9 % (11.5-14.5); White Blood Count 10.2 K/mm3 (4.5-10.0)
[2024-10-22 06:22] LABS: Anion Gap 11 mmol/L (4-12); Blood Urea Nitrogen 12 mg/dL (7-17); Carbon Dioxide 25 mmol/L (22-30); Chloride 103 mmol/L (98-107); Estimated CRCL calculation 92 ml/min; Estimated Glomerular Filt Rate > 60; Glucose 130 mg/dL (65-110); Magnesium 1.9 mg/dL (1.6-2.3); Phosphorus 2.9 mg/dL (2.5-4.5); Potassium 3.2 mmol/L (3.4-5.0); Sodium 139 mmol/L (137-145)
[2024-10-22] MEDS: POTASSIUM CHLORIDE INJ 40 MEQ in SODIUM CHLORIDE 0.9% IV 500 ML 130 MEQ IVPB (08:55)
--- NOTE | 2024-10-22 11:25 | PC.NURSE ---
Pt states that she called [facility] office and wants us to call them and have him come down. This RN explained that we have consulted with the FOOD ANALYST and she is supposed to be coming to see her.
--- NOTE | 2024-10-22 12:45 | P.PNIM_ITS ---
Progress Note: A&P Assessment and Plan (1) Bowel obstruction: Code(s): K56.609 - Unspecified intestinal obstruction, unspecified as to partial versus complete obstruction Status: Acute Assessment and Plan: * Admit to regular medical floor * GI consulted, Colonoscopy in the AM * Clear liquid supper, NPO after midnight. * Polyethylene glycol 3350 * WBC improved from 14.3> 10.2. * Carcinoembryronic Antigen Routine in the AM (2) Abdominal pain: Code(s): R10.9 - Unspecified abdominal pain Status: Acute Assessment and Plan: * Likely secondary to partial obstruction * Supportive care (3) Nausea and vomiting in adult: Code(s): R11.2 - Nausea with vomiting, unspecified Status: Acute Assessment and Plan: * Ondansetron 4 mg ivp q 6 PRN. (4) Stricture intestinal: Code(s): K56.699 - Other intestinal obstruction unspecified as to partial versus complete obstruction Status: Acute Assessment and Plan: * Suspicious for malignancy (5) Hypokalemia: Code(s): E87.6 - Hypokalemia Status: Acute Assessment and Plan: * Potassium 3.2. * Potasium Chloride 40 meq IVPB x1 given. * Monitor labs. Subjective Date/time seen: 10/22/24 12:45 Interval history: Patient reports pain in abdomen is a 4 , tender to palpation, and frequent. Patient denies chest pain, palpitations, headache, dizziness, nausea, or vomiting. Patient reports last bowel movement was today. Patient reports that she seen GI and the plan is for a colonoscopy in the morning. Review of Systems Review of Systems: All systems reviewed & are unremarkable except as noted in HPI and below Exam Const: General: no acute distress and uncomfortable Eyes: Sclera: sclerae normal Resp: Effort & Inspection: normal respiratory effort Auscultation: clear to auscultation bilaterally Cardio: Rate: regular rate Rhythm: regular rhythm GI: GI Palp: Yes Soft to palpation and Yes Tenderness to palpation present (GI) (right upper quadrant and right lower quadrant. ) Auscultation: normal bowel sounds Skin: General skin exam: no rashes or lesions noted Extrem: General: no pedal edema Psych: Mental Status: mental status grossly normal Affect: normal affect Objective Data Vital Signs Vital Signs: Vital Signs - 24 hr 10/21/24 13:33 10/22/24 01:13 10/22/24 06:10 Temperature 96.9 F L Pulse Rate 113 H 100 94 Respiratory Rate 18 16 17 Blood Pressure 137/73 132/78 135/78 Pulse Oximetry 98 96 95 Oxygen Delivery Room Air 10/22/24 07:13 10/22/24 07:54 Temperature Pulse Rate 97 103 H Respiratory Rate 16 14 Blood Pressure 135/78 135/78 Pulse Oximetry 94 95 Oxygen Delivery Intake/Output Intake/Output: Intake & Output 10/19/24 10/20/24 10/21/24 10/22/24 23:59 23:59 23:59 23:59 Intake Total 2550 50 Balance 2550 50 Meds/Results Medications: Active Medications Generic Name Dose Route Start Last Admin Trade Name Freq PRN Reason Stop Dose Admin Piperacillin/Tazobactam/Dextrose 3.375 gm in 50 mls @ 100 mls/hr 10/22/24 06:00 10/22/24 12:06 Zosyn 3.375 Gm/Ns 50 Ml IVPB 100 mls/hr Q6H FLORINDA Administration Potassium Chloride 40 meq/ 520 mls @ 130 mls/hr 10/22/24 09:00 10/22/24 08:55 Sodium Chloride IVPB 10/22/24 12:59 130 mls/hr ONCE ONE Administration Radiology Results: ITS Impressions Venous Doppler Study 10/21/24 15:46 IMPRESSION: 1. No deep venous thrombosis in the right lower limb. Abdomen/Pelvis CT 10/21/24 20:42 IMPRESSION: 1. Persistent stricture of the transverse colon with bowel obstruction suspicious for primary malignancy. 2. Nodularity of the peritoneum in the upper abdomen suspicious for peritoneal carcinomatosis. 3. Mild aortocaval lymphadenopathy suspicious for metastatic disease. Labs Labs: Laboratory Results - last 24 hr 10/21/24 10/21/24 10/22/24 15:50 18:21 06:08 WBC 14.3 H 10.2 H RBC 4.71 3.97 L Hgb 13.3 11.4 L Hct 39.9 34.5 L MCV 84.7 D 86.9 MCH 28.2 28.7 MCHC 33.3 33.0 RDW 12.6 12.9 Plt Count 328 269 MPV 9.4 9.7 Immature Gran % (Auto) 0.6 H 0.6 H Neut % (Auto) 74.7 H 68.2 Lymph % (Auto) 15.7 L 20.6 [place] % (Auto) 8.3 9.4 H Eos % (Auto) 0.5 1.0 Baso % (Auto) 0.2 0.2 Lymph # (Auto) 2.24 2.09 [place] # (Auto) 1.2 H 1.0 H Eos # (Auto) 0.1 0.1 Baso # (Auto) 0.0 0.0 Abs Immat Gran (auto) 0.09 H 0.06 H Absolute Neuts (auto) 10.7 H 6.9 H Absolute Nucleated RBC 0.000 0.000 Nucleated RBC % 0.0 0.0 Sodium 137 139 Potassium 2.8 L* 3.2 L Chloride 100 103 Carbon Dioxide 26 25 Anion Gap 11 11 BUN 14 12 Creatinine 0.57 L 0.49 L Estim Creat Clear Calc 80 92 Estimated GFR > 60 > 60 Glucose 136 H 130 H Calcium 9.1 8.0 L Phosphorus 2.9 Magnesium 1.9 Total Bilirubin 0.8 AST 29 ALT 26 Alkaline Phosphatase 96 Total Protein 7.0 Albumin 3.9 Urine Color Dark yellow Urine Appearance Cloudy H Urine pH 5.0 Ur Specific [place] 1.028 Urine Protein 1+ H Urine Glucose (UA) Negative Urine Ketones Trace H Ur Blood (Man) Negative Urine Nitrate Positive H Urine Bilirubin 1+ H Urine Urobilinogen 0.2 Add Ur Microanalysis Reviewed Leukocyte Esterase Rfl 1+ H Urine RBC 0-2 Urine WBC 0-5 Ur Squamous Epith Cells Many H Calcium Oxalate Crystal Present Urine Bacteria None seen Urine Casts 3-5 Urine Mucus Present Quality VTE Prophylaxis VTE prophylaxis: mechanical ordered
--- NOTE | 2024-10-22 13:01 | WPDGICN ---
Assessment and Plan Assessment and plan (1) Right sided abdominal pain: Code(s): R10.9 - Unspecified abdominal pain Status: Acute Assessment and Plan: concerning finding in ct scan, possible malignancy (patient had colonoscopy about 1 year ago at outside hospital) she is comfortable now and no emesis, if she can tolerate prep then we attempt colonoscopy will also ask surgery to evaluate (2) Nausea and vomiting in adult: Code(s): R11.2 - Nausea with vomiting, unspecified Status: Acute (3) Bowel obstruction: Code(s): K56.609 - Unspecified intestinal obstruction, unspecified as to partial versus complete obstruction Status: Acute Assessment and Plan: colon stricture, possible malignancy, need to assess with colonoscopy if possible will get CEA level and ask surgery to evaluate (4) Stricture intestinal: Code(s): K56.699 - Other intestinal obstruction unspecified as to partial versus complete obstruction Status: Acute (5) Abdominal pain: Code(s): R10.9 - Unspecified abdominal pain Status: Acute (6) Leukocytosis: Code(s): D72.829 - Elevated white blood cell count, unspecified Status: Acute (7) Hypokalemia: Code(s): E87.6 - Hypokalemia Status: Acute Assessment and Plan: repleting GI Consult Note Consult date/time: 10/22/24 13:01 Reason for consult: colon stricture, abdominal pain HPI: Hayden Estrella is a 68 year old female who was recently in the hospital after worsening pain in right-sided flank, CT scan revealed thickening at hepatic flexure and treated as colitis with iv abx then sent home to complete oral antibiotics (she had colonoscopy at [place] 1 year ago that showed polyps). Pain worsened and finally she had to come back to ER again for pain control, also nausea. Repeat CT scan showed Persistent stricture of the transverse colon with bowel obstruction suspicious for primary malignancy. Nodularity of the peritoneum in the upper abdomen suspicious for peritoneal carcinomatosis. Mild aortocaval lymphadenopathy suspicious for metastatic disease. WBC 14, also hypokalemia. Still with pain but better, no emesis today. Denies fever. Review of Systems Constitutional: Constitutional: Denies chills Eyes: Eyes: Denies blurry vision ENT: Reports Normal hearing present Cardiovascular: Cardiovascular: Denies chest pain Respiratory: Respiratory: Denies chest congestion Gastrointestinal: Gastrointestinal: Reports abdominal pain, Reports nausea and Reports vomiting Genitourinary: Genitourinary: Denies dysuria Musculoskeletal: Musculoskeletal: Denies neck pain Integumentary/Breasts: Skin/Breast: Denies rash Neurologic: Denies Abnormal speech present Psychiatric: Psychiatric: Denies behavioral changes [facility] Past Medical History Medical History Nausea and vomiting in adult Leukocytosis Hypokalemia Family History Family History Sibling Lung cancer COVID Diabetes mellitus Father Leukemia Mother Heart trouble Social History Social History Smoking status: Never smoker Second hand tobacco smoke exposure: No Alcohol intake: never Substance use: never Do You Feel Safe in your Home?: Yes Lack of Transportation: No Lack of Food: Never True Current Housing: I Have Housing Concerned About Future Housing: No Difficulty Paying Gas/Electric Bills: No Difficulty Paying for Meds: No Currently Unemployed: No Education: Grade School Difficulty w/ Childcare or Family Care: No Spiritual care concerns: No Meds Home Medications and Allergies Home Medications ?Medication ?Instructions ?Recorded ?Confirmed ?Type amlodipine 5 mg tablet 5 mg PO DAILY 10/15/24 10/22/24 History aspirin 81 mg chewable tablet 81 mg PO DAILY 10/15/24 10/22/24 History ezetimibe 10 mg tablet 10 mg PO DAILY 10/15/24 10/22/24 History losartan 100 1 tablet PO DAILY 10/15/24 10/22/24 History mg-hydrochlorothiazide 12.5 mg tablet metoprolol succinate 50 mg 50 mg PO Q12H 10/15/24 10/22/24 History tablet,extended release 24 hr potassium chloride 10 mEq 10 meq PO DAILY 10/15/24 10/22/24 History tablet,extended release pravastatin 40 mg tablet 40 mg PO DAILY 10/15/24 10/22/24 History levofloxacin 750 mg tablet 750 mg PO DAILY 11 days #11 tabs 10/18/24 10/22/24 Rx metronidazole 500 mg tablet 500 mg PO Q8H 11 days #33 tabs 10/18/24 10/22/24 Rx oxycodone-acetaminophen 7.5 mg-325 1 tablet PO Q6H PRN pain 5 days #7 10/18/24 10/22/24 Rx mg tablet tabs Allergies Allergy/AdvReac Type Severity Reaction Status Date / Time No Known Allergies Allergy Verified 10/21/24 13:26 Vital Signs Vital Signs - 24 hr 10/21/24 13:33 10/22/24 01:13 10/22/24 06:10 Temperature 96.9 F L Pulse Rate 113 H 100 94 Respiratory Rate 18 16 17 Blood Pressure 137/73 132/78 135/78 Pulse Oximetry 98 96 95 Oxygen Delivery Room Air 10/22/24 07:13 10/22/24 07:54 10/22/24 12:49 Temperature Pulse Rate 97 103 H 93 Respiratory Rate 16 14 19 Blood Pressure 135/78 135/78 151/80 H Pulse Oximetry 94 95 96 Oxygen Delivery Exam Const: General: comfortable and no acute distress HENMT: Face/Nose/Sinus: Normal nares present Eyes: General: appearance normal, both eyes and all related structures Neck: Neck: supple Resp: Auscultation: clear to auscultation bilaterally Cardio: Rate: regular rate Rhythm: regular rhythm GI: Inspection: distended GI Palp: Yes Soft to palpation and Yes Tenderness to palpation present (GI) (ttp in right side, no rebound) Skin: General skin exam: normal color Neuro: Speech: normal speech Motor exam (neuro): 5/5 motor strength present throughout Extrem: General: normal to inspection Psych: Mental Status: mental status grossly normal Results Labs 10/22/24 06:08 10/22/24 06:08 Labs: Short CBC 10/21/24 10/22/24 Range/Units 15:50 06:08 WBC 14.3 H 10.2 H (4.5-10.0) K/mm3 Hgb 13.3 11.4 L (12.0-15.0) g/dL Hct 39.9 34.5 L (37.0-47.0) % Plt Count 328 269 (150-375) k/mm3 BMP 10/21/24 10/22/24 15:50 06:08 Sodium 137 139 Potassium 2.8 L* 3.2 L Chloride 100 103 Carbon Dioxide 26 25 BUN 14 12 Creatinine 0.57 L 0.49 L Glucose 136 H 130 H Calcium 9.1 8.0 L Liver Function 10/21/24 Range/Units 15:50 Total Bilirubin 0.8 (0.2-1.3) mg/dL AST 29 (14-36) U/L ALT 26 (6-35) U/L Alkaline Phosphatase 96 (38-126) U/L Albumin 3.9 (3.5-5.1) g/dL Urine 10/21/24 Range/Units 18:21 Urine Color Dark yellow (Yellow) Urine Appearance Cloudy H (Clear) Urine pH 5.0 (5.0-9.0) Ur Specific [place] 1.028 (1.001-1.035) Urine Protein 1+ H (Negative) mg/dL Urine Glucose (UA) Negative (Negative) mg/dL
--- NOTE | 2024-10-22 14:25 | ADMGEN ---
This patient, Hayden Estrella, was admitted to [facility] Surg Room 300-01. Patient/family oriented to hospital policies and general routines including ID bracelet, bed and alarms, visiting hours, pain management, procedures, bathroom and other care routines, personal items, smoking policy, room service/diet, and visiting hours. Information on how to activate the Rapid Response Team has been discussed. Patient/Family are encouraged to report perceived risks to care and to ask questions if they do not understand what they are told or what they should do.
--- NOTE | 2024-10-22 16:13 | P.CONGS_ITS ---
Assessment and Plan Assessment and plan (1) Bowel obstruction: Code(s): K56.609 - Unspecified intestinal obstruction, unspecified as to partial versus complete obstruction Status: Acute Assessment and Plan: Patient recently admitted and treated for focal colitis at the hepatic flexure with IV antibiotics and discharged with oral antibiotics 3 days ago. She continues to have right-sided abdominal pain without much relief and now presents back with numbness and tingling in her right thigh as well. Her repeat CT scan showed now some proximal bowel dilation from the wall thickening at the hepatic flexure with stricturing, as well as mention of nodularity of the peritoneum concerning for peritoneal carcinomatosis, and aortocaval lymphadenopathy concerning for metastatic disease. She is having some bowel function and appears to be partially obstructed at this point. There are no signs of perforation or peritoneal signs on exam. GI is going to attempt bowel prep tonight for possibly colonoscopy tomorrow. CEA has also been ordered. There is no indication for emergent surgical intervention, which would be reserved for perforation or a high-grade obstruction. We will continue to follow along and await colonoscopy results for further recommendations. (2) Stricture intestinal: Code(s): K56.699 - Other intestinal obstruction unspecified as to partial versus complete obstruction Status: Acute (3) Abnormal CT of the abdomen: Code(s): R93.5 - Abnormal findings on diagnostic imaging of other abdominal regions, including retroperitoneum Status: Acute (4) Right sided abdominal pain: Code(s): R10.9 - Unspecified abdominal pain Status: Acute (5) Leukocytosis: Code(s): D72.829 - Elevated white blood cell count, unspecified Status: Acute Assessment and Plan: * Patient still has mild leukocytosis. Continue IV antibiotics. See plan above. (6) Hypokalemia: Code(s): E87.6 - Hypokalemia Status: Acute Assessment and Plan: * Potassium 2.8 on admission and has been replaced. Continue to replace as needed and monitor labs. (7) Hypertension: Code(s): I10 - Essential (primary) hypertension Status: Chronic Plan I have discussed the patient's case and plan of care with Dr. Otero. Thank you for allowing us to see the patient in consultation and we will continue to follow along with you. History of Present Illness Consult details Consult date: 10/22/24 Reason for consult: other (Colon obstruction/stricture) Requesting physician: Ramos Capellan MD Narrative: This is a 68-year-old woman who we have been asked to see in surgical consultation for a colonic obstruction and stricture. She was recently admitted to the hospital from 10/15/2024 through 10/18/2024 with focal colitis and sepsis. Her CT scan of the abdomen and pelvis on that admission showed wall thickening at the hepatic flexure of the colon with prominent surrounding inflammatory stranding without abscess or free intraperitoneal gas, which could be focal colitis versus diverticulitis versus malignancy. She was treated with IV antibiotics and eventually discharged with oral Levaquin and Flagyl. She had been taking her medication as prescribed, but reportedly continued having right- sided abdominal pain. Her pain never stopped, but days ago she developed some numbness and tingling in her right anterior thigh. She has never had this occur before and called her PCP. They recommended she go to the ED for evaluation. Her labs showed her white blood cell count at 14,300, which is up from her discharge when it was 11,300. She also had significant hyperkalemia with a potassium of 2.8, which has been replaced and is up to 3.2. CT scan of the abdomen and pelvis with IV contrast showed persistent stricture of the transverse colon with bowel obstruction suspicious for primary malignancy, nodularity of the peritoneum in the upper abdomen suspicious for peritoneal carcinomatosis, and mild aortocaval lymphadenopathy suspicious for metastatic disease. She also has a mass in the right kidney and a small cyst in left kidney, as well as a gallstone in the gallbladder, and small sliding hiatal hernia. She reports that she has recently had liquid stools and is moving her bowels multiple times per day. No blood in her stools. She denies any nausea or vomiting. GI has been consulted and has ordered bowel prep for a colonoscopy tomorrow. She reportedly had a colonoscopy a [place] last year with multiple polyps removed, but reportedly no concerning findings. She has a history of breast cancer in 2021 status post lumpectomy and radiation therapy. She also had cervical cancer in 1987 status post total abdominal hysterectomy. She additionally reports about 20 years ago having some type of vaginal prolapse, possibly cystocele, that was surgically repaired at [place]. Review of Systems 2 Review of Systems: All systems reviewed & are unremarkable except as noted in HPI and below PMFSH Past Medical History Medical History Hyperlipidemia Hypertension History of cervical cancer History of breast cancer Surgical History Surgical History History of laparotomy She had some open repair for prolapse, possibly cystocele History of total abdominal hysterectomy History of lumpectomy of left breast Family History Family History Sibling Lung cancer COVID Diabetes mellitus Father Leukemia Mother Heart trouble Social History Social History Smoking status: Never smoker Second hand tobacco smoke exposure: No Alcohol intake: never Substance use: never Do You Feel Safe in your Home?: Yes Lack of Transportation: No Lack of Food: Never True Current Housing: I Have Housing Concerned About Future Housing: No Difficulty Paying Gas/Electric Bills: No Difficulty Paying for Meds: No Currently Unemployed: No Education: Grade School Difficulty w/ Childcare or Family Care: No Spiritual care concerns: No Meds Home Medications and Allergies Home Medications ?Medication ?Instructions ?Recorded ?Confirmed ?Type amlodipine 5 mg tablet 5 mg PO DAILY 10/15/24 10/22/24 History aspirin 81 mg chewable tablet 81 mg PO DAILY 10/15/24 10/22/24 History ezetimibe 10 mg tablet 10 mg PO DAILY 10/15/24 10/22/24 History losartan 100 1 tablet PO DAILY 10/15/24 10/22/24 History mg-hydrochlorothiazide 12.5 mg tablet metoprolol succinate 50 mg 50 mg PO Q12H 10/15/24 10/22/24 History tablet,extended release 24 hr potassium chloride 10 mEq 10 meq PO DAILY 10/15/24 10/22/24 History tablet,extended release pravastatin 40 mg tablet 40 mg PO DAILY 10/15/24 10/22/24 History levofloxacin 750 mg tablet 750 mg PO DAILY 11 days #11 tabs 10/18/24 10/22/24 Rx metronidazole 500 mg tablet 500 mg PO Q8H 11 days #33 tabs 10/18/24 10/22/24 Rx oxycodone-acetaminophen 7.5 mg-325 1 tablet PO Q6H PRN pain 5 days #7 10/18/24 10/22/24 Rx mg tablet tabs Allergies Allergy/AdvReac Type Severity Reaction Status Date / Time No Known Allergies Allergy Verified 10/21/24 13:26 Vital Signs Vital Signs - 24 hr 10/22/24 01:13 10/22/24 06:10 10/22/24 07:13 Temperature Pulse Rate 100 94 97 Respiratory Rate 16 17 16 Blood Pressure 132/78 135/78 135/78 Pulse Oximetry 96 95 94 10/22/24 07:54 10/22/24 12:49 10/22/24 14:34 Temperature 96.9 F L Pulse Rate 103 H 93 115 H Respiratory Rate 14 19 18 Blood Pressure 135/78 151/80 H 154/80 H Pulse Oximetry 95 96 94 Exam 2 Const: General: comfortable and no acute distress Nutritional Appearance: o verweight Orientation/consciousness: patient oriented x3 HENMT: Head: normocephalic and atraumatic Ears: hearing grossly normal bilaterally Mouth: Yes moist mucous membranes Eyes: General: appearance normal, both eyes and all related structures P upils: Equal, round and reactive pupils present Neck: Neck: normal visual inspection and full ROM Resp: Effort & Inspection: no respiratory distress Auscultation: clear to auscultation bilaterally Cardio: Rate: regular rate Rhythm: regular rhythm Peripheral pulses: P eripheral pulses 2+ throughout GI: Inspection: distended, obesity, scar (Pfannenstiel scar) and no visible herniation GI Palp: Yes Soft to palpation, Yes Tenderness to palpation present (GI) (Right upper quadrant and right lower quadrant), No Guarding due to palpation present (GI), Yes No hepatosplenomegaly present and No Rebound tenderness present Auscultation: normal bowel sounds Rectal Exam: deferred Skin: General skin exam: normal color Neuro: General: moves all extremities and no focal motor deficits Speech: n ormal speech Motor exam (neuro): 5/5 motor strength present throughout Extrem: General: normal to inspection and no edema Psych: Mental Status: mental status grossly normal Attitude: cooperative Insight: Good insight present (Psych) Judgement: Good judgement present (Psych) Results Labs 10/22/24 06:08 10/22/24 06:08 Labs: Abnormal lab results 10/21/24 10/21/24 10/22/24 Range/Units 15:50 18:21 06:08 WBC 10.2 H (4.5-10.0) K/mm3 RBC 3.97 L (4.2-5.4) M/mm3 Hgb 11.4 L (12.0-15.0) g/dL Hct 34.5 L (37.0-47.0) % Immature Gran % (Auto) 0.6 H (0-0.5) % [place] % (Auto) 9.4 H (2.6-8.5) % [place] # (Auto) 1.0 H (0.1-0.6) K/mm3 Abs Immat Gran (auto) 0.06 H (0.00-0.031) K/mm3 Absolute Neuts (auto) 6.9 H (1.3-6.7) K/mm3 Potassium 2.8 L* 3.2 L (3.4-5.0) mmol/L Creatinine 0.57 L 0.49 L (0.7-1.0) mg/dL Glucose 136 H 130 H (65-110) mg/dL Calcium 8.0 L (8.4-10.2) mg/dL Urine Appearance Cloudy H (Clear) Urine Protein 1+ H (Negative) mg/dL Urine Ketones Trace H (Negative) mg/dL Urine Nitrate Positive H (Negative) Urine Bilirubin 1+ H (Negative) Leukocyte Esterase Rfl 1+ H (Negative) JULIAN/UL Ur Squamous Epith Cells Many H (Few) /hpf Diabetes panel 10/21/24 10/22/24 Range/Units 15:50 06:08 Sodium 137 139 (137-145) mmol/L Potassium 2.8 L* 3.2 L (3.4-5.0) mmol/L Chloride 100 103 (98-107) mmol/L Carbon Dioxide 26 25 (22-30) mmol/L BUN 14 12 (7-17) mg/dL Creatinine 0.57 L 0.49 L (0.7-1.0) mg/dL Glucose 136 H 130 H (65-110) mg/dL Calcium 9.1 8.0 L (8.4-10.2) mg/dL AST 29 (14-36) U/L ALT 26 (6-35) U/L Alkaline Phosphatase 96 (38-126) U/L Total Protein 7.0 (6.3-8.2) g/dL Albumin 3.9 (3.5-5.1) g/dL Calcium panel 10/21/24 10/22/24 Range/Units 15:50 06:08 Calcium 9.1 8.0 L (8.4-10.2) mg/dL Phosphorus 2.9 (2.5-4.5) mg/dL Albumin 3.9 (3.5-5.1) g/dL Pituitary panel 10/21/24 10/22/24 Range/Units 15:50 06:08 Sodium 137 139 (137-145) mmol/L Potassium 2.8 L* 3.2 L (3.4-5.0) mmol/L Chloride 100 103 (98-107) mmol/L Carbon Dioxide 26 25 (22-30) mmol/L BUN 14 12 (7-17) mg/dL Creatinine 0.57 L 0.49 L (0.7-1.0) mg/dL Glucose 136 H 130 H (65-110) mg/dL Calcium 9.1 8.0 L (8.4-10.2) mg/dL Adrenal panel 10/21/24 10/22/24 Range/Units 15:50 06:08 Sodium 137 139 (137-145) mmol/L Potassium 2.8 L* 3.2 L (3.4-5.0) mmol/L Chloride 100 103 (98-107) mmol/L Carbon Dioxide 26 25 (22-30) mmol/L BUN 14 12 (7-17) mg/dL Creatinine 0.57 L 0.49 L (0.7-1.0) mg/dL Glucose 136 H 130 H (65-110) mg/dL Calcium 9.1 8.0 L (8.4-10.2) mg/dL Total Bilirubin 0.8 (0.2-1.3) mg/dL AST 29 (14-36) U/L ALT 26 (6-35) U/L Alkaline Phosphatase 96 (38-126) U/L Total Protein 7.0 (6.3-8.2) g/dL Albumin 3.9 (3.5-5.1) g/dL All other labs normal. Imaging Additional studies: ITS Impressions Venous Doppler Study 10/21/24 15:46 IMPRESSION: 1. No deep venous thrombosis in the right lower limb. Abdomen/Pelvis CT 10/21/24 20:42 IMPRESSION: 1. Persistent stricture of the transverse colon with bowel obstruction suspicious for primary malignancy. 2. Nodularity of the peritoneum in the upper abdomen suspicious for peritoneal carcinomatosis. 3. Mild aortocaval lymphadenopathy suspicious for metastatic disease.
[2024-10-22] MEDS: BISACODYL 5 MG TABLET EC 20 MG PO (17:11)
[2024-10-22] MEDS: METOPROLOL SUCCINATE EXT REL 50 MG TABCR PO (17:11)
[2024-10-22] MEDS: polyethylene glycoL 3350 238 GM BOTTLE PO (17:11)
[2024-10-23] VITALS (18 sets, daily range): BP systolic 121–162; BP diastolic 50–72; PULSE 73–109; RESP 16–28; TEMP 36–37.5; O2SAT 93–97
[2024-10-23] MEDS: PIPERACILLN/TAZ 3.375GM/NS50ML 3.375 GM/50 ML BAG IVPB ×4 (00:58→18:39)
[2024-10-23] MEDS: METOPROLOL SUCCINATE EXT REL 50 MG TABCR PO ×2 (04:26→16:41)
[2024-10-23 07:13] LABS: Basophils Percent Auto 0.2 % (0.2-1.2); Eosinophils Absolute Auto 0.2 K/mm3 (0-0.3); Hematocrit 34.6 % (37.0-47.0); Hemoglobin 11.4 g/dL (12.0-15.0); Immature Granulocyte Absolute 0.05 K/mm3 (0.00-0.031); Immature Granulocyte Percent A 0.5 % (0-0.5); Lymphocytes Absolute Auto 2.05 K/mm3 (0.9-3.2); Lymphocytes Percent Auto 21.9 % (18.3-44.2); Mean Corpuscular HGB Conc 32.9 g/dl (32-36); Mean Corpuscular Hemoglobin 28.6 pg (26-34); Mean Corpuscular Volume 86.7 fl (80-100); Mean Platelet Volume 9.7 fl (7.4-10.4); Monocytes Absolute Auto 0.8 K/mm3 (0.1-0.6); Monocytes Percent Auto 8.9 % (2.6-8.5); Neutrophils Absolute Auto 6.2 K/mm3 (1.3-6.7); Neutrophils Percent Auto 66.5 % (45.5-73.1); Platelet Count Result 290 k/mm3 (150-375); Red Blood Count 3.99 M/mm3 (4.2-5.4); Red Cell Distribution Width 12.9 % (11.5-14.5); White Blood Count 9.4 K/mm3 (4.5-10.0)
[2024-10-23 07:29] LABS: Alanine Aminotransferase 16 U/L (6-35); Albumin Level 3.6 g/dL (3.5-5.1); Alkaline Phosphatase 79 U/L (38-126); Anion Gap 10 mmol/L (4-12); Aspartate Amino Transferase 19 U/L (14-36); Bilirubin,Total 0.8 mg/dL (0.2-1.3); Blood Urea Nitrogen 8 mg/dL (7-17); Calcium 8.6 mg/dL (8.4-10.2); Carbon Dioxide 24 mmol/L (22-30); Chloride 102 mmol/L (98-107); Estimated CRCL calculation 97 ml/min; Estimated Glomerular Filt Rate > 60; Glucose 131 mg/dL (65-110); Potassium 3.2 mmol/L (3.4-5.0); Sodium 136 mmol/L (137-145)
[2024-10-23 07:59] LABS: Carcinoembryonic Antigen 0.7 ng/mL (0.0-3.0)
[2024-10-23 08:54] LABS: Magnesium 2.1 mg/dL (1.6-2.3)
--- NOTE | 2024-10-23 09:33 | P.PNAN_ITS ---
Anes - Initial Pre Proc Eval Procedure: Operation Date: 10/23/24 14:30 Proposed Procedures p Colonoscopy - Ramos Capellan MD Date/Time: 10/23/24 09:33 Surgeon: Rosita Bauman MD Pre Op Diagnosis: bowel obstruction Patient Data Age: 68 Gender: F Height: 1.55 m Weight: 87.6 kg Last Vital Signs Temp 36.8 C 10/23/24 04:59 Pulse 101 H 10/23/24 04:59 Resp 16 10/23/24 04:59 BP 139/71 10/23/24 04:59 Pulse Ox 96 10/23/24 08:33 O2 Del Method Room Air 10/23/24 08:33 Allergies Allergy/AdvReac Type Severity Reaction Status Date / Time No Known Allergies Allergy Verified 10/23/24 09:33 Home Medications ?Medication ?Instructions ?Recorded ?Confirmed ?Type amlodipine 5 mg tablet 5 mg PO DAILY 10/15/24 10/22/24 History aspirin 81 mg chewable tablet 81 mg PO DAILY 10/15/24 10/22/24 History ezetimibe 10 mg tablet 10 mg PO DAILY 10/15/24 10/22/24 History losartan 100 1 tablet PO DAILY 10/15/24 10/22/24 History mg-hydrochlorothiazide 12.5 mg tablet metoprolol succinate 50 mg 50 mg PO Q12H 10/15/24 10/22/24 History tablet,extended release 24 hr potassium chloride 10 mEq 10 meq PO DAILY 10/15/24 10/22/24 History tablet,extended release pravastatin 40 mg tablet 40 mg PO DAILY 10/15/24 10/22/24 History levofloxacin 750 mg tablet 750 mg PO DAILY 11 days #11 tabs 10/18/24 10/22/24 Rx metronidazole 500 mg tablet 500 mg PO Q8H 11 days #33 tabs 10/18/24 10/22/24 Rx oxycodone-acetaminophen 7.5 mg-325 1 tablet PO Q6H PRN pain 5 days #7 10/18/24 10/22/24 Rx mg tablet tabs Laboratory Tests 10/23/24 10/23/24 06:24 06:28 WBC 9.4 K/mm3 (4.5-10.0) RBC 3.99 L M/mm3 (4.2-5.4) Hgb 11.4 L g/dL (12.0-15.0) Hct 34.6 L % (37.0-47.0) MCV 86.7 fl (80-100) MCH 28.6 pg (26-34) MCHC 32.9 g/dl (32-36) RDW 12.9 % (11.5-14.5) Plt Count 290 k/mm3 (150-375) MPV 9.7 fl (7.4-10.4) Immature Gran % (Auto) 0.5 % (0-0.5) Neut % (Auto) 66.5 % (45.5-73.1) Lymph % (Auto) 21.9 % (18.3-44.2) [place] % (Auto) 8.9 H % (2.6-8.5) Eos % (Auto) 2.0 % (0-4.4) Baso % (Auto) 0.2 % (0.2-1.2) Lymph # (Auto) 2.05 K/mm3 (0.9-3.2) [place] # (Auto) 0.8 H K/mm3 (0.1-0.6) Eos # (Auto) 0.2 K/mm3 (0-0.3) Baso # (Auto) 0.0 K/mm3 (0.0-0.1) Abs Immat Gran (auto) 0.05 H K/mm3 (0.00-0.031) Absolute Neuts (auto) 6.2 K/mm3 (1.3-6.7) Absolute Nucleated RBC 0.000 K/mm3 (0.0-0.012) Nucleated RBC % 0.0 % (0.0-0.2) Sodium 136 L mmol/L (137-145) Potassium 3.2 L mmol/L (3.4-5.0) Chloride 102 mmol/L (98-107) Carbon Dioxide 24 mmol/L (22-30) Anion Gap 10 mmol/L (4-12) BUN 8 mg/dL (7-17) Creatinine 0.46 L mg/dL (0.7-1.0) Estim Creat Clear Calc 97 ml/min Estimated GFR > 60 (59 - ) Glucose 131 H mg/dL (65-110) Calcium 8.6 mg/dL (8.4-10.2) Magnesium 2.1 mg/dL (1.6-2.3) Total Bilirubin 0.8 mg/dL (0.2-1.3) AST 19 U/L (14-36) ALT 16 U/L (6-35) Alkaline Phosphatase 79 U/L (38-126) Total Protein 7.0 g/dL (6.3-8.2) Albumin 3.6 g/dL (3.5-5.1) Carcinoembryonic Ag 0.7 ng/mL (0.0-3.0) Patient hx anesthesia problems: none Family hx anesthesia problems: none Results Review: All pre-operative results and documents have been reviewed as part of the pre- operative evaluation. [facility] Past Medical History Medical History Hyperlipidemia Hypertension History of cervical cancer History of breast cancer Surgical History Surgical History History of laparotomy She had some open repair for prolapse, possibly cystocele History of total abdominal hysterectomy History of lumpectomy of left breast Family History Family History Sibling Lung cancer COVID Diabetes mellitus Father Leukemia Mother Heart trouble Social History Social History Smoking status: Never smoker Second hand tobacco smoke exposure: No Alcohol intake: never Substance use: never Do You Feel Safe in your Home?: Yes Lack of Transportation: No Lack of Food: Never True Current Housing: I Have Housing Concerned About Future Housing: No Difficulty Paying Gas/Electric Bills: No Difficulty Paying for Meds: No Currently Unemployed: No Education: Grade School Difficulty w/ Childcare or Family Care: No Spiritual care concerns: No Anes - Eval Final PreProcedure Day of Procedure 10/23/24 09:33 Patient weight: obese Heart: regular rate and rhythm Lungs: clear to auscultation Airway: Mallampati scale class II Neurological: alert and oriented Last oral intake: >/= 8 hours ASA classification: III Emergent: no Anesthetic plan: proceed Anesthesia type and monitoring: general GIVS and standard monitoring Results Review: All pre-operative results and documents have been reviewed as part of the pre- operative evaluation. Informed Consent: The patient's anesthetic plan and its attendant risks and benefits were discussed with the patient/family/POA. Questions were solicited and answers provided to the satisfaction of the patient/family/POA.
[2024-10-23] MEDS: LACTATED RINGERS 1,000 ML 150 ML IV CONT (09:36)
--- NOTE | 2024-10-23 09:45 | PC.NURSE ---
To GI Lab per belen at 0920, IV saline locked. Report given to ASUNCION Riggins.
--- NOTE | 2024-10-23 11:09 | PM.IMPN ---
Progress Note: A&P Assessment and Plan (1) Bowel obstruction: Code(s): K56.609 - Unspecified intestinal obstruction, unspecified as to partial versus complete obstruction Status: Acute Assessment and Plan: Admit to regular medical floor GI consulted WBC improved from 14.3> 10.2>9.4. Carcinoembryronic Antigen 0.7. Colonoscopy done today showed: a few diverticula were present in the sigmoid colon. The diverticula were not actively bleeding. A partially-obstructing, large-size friable, infiltrative, malignant appearing, circumferential mass was observed in the transverse colon, size about 3-4 cm, noted small lumen probably 7-8 mm diameter and unable to traverse with scope and reach cecum (original plan was to perform a full colonoscopy). Multiple biopsies were taken. A few small-size internal hemorrhoids were seen in the rectum. The hemorrhoids were not actively bleeding. Endoscopic diagnosis: Diverticulosis without perforation or abscess without bleeding (K57.30), Malignant appearing colonic mass at transverse colon (C18.4), and Internal hemorrhoids (K64.8). Surgery following. Dr. Otero today wrote in plan: Patient has a malignant-appearing stricture mass effect in proximal transverse and hepatic flexure of the colon. Biopsies were obtained and colonoscopy and sent to pathology. It will be least 3 days we get a pathology result back. However by imaging as well as laparoscopic description and evidence of mild aortocaval lymphadenopathy this appears to be consistent with a colon cancer. There is some thickened omentum in the right upper quadrant up against the abdominal wall which may represent omentum. After reviewing the CT scan with the radiologist she feels that this can be biopsied with ultrasound guidance. I have ordered this to be done for tomorrow in Radiology. If this shows advanced disease with at least omental metastasis in the patient may be a candidate for resection and HIPEC. Will discuss with Surgical Oncology surgeons [place] and refer if appropriate. For now stay on clear liquids. Albumin is 3.8 so would not start on TPN just yet. (2) Abdominal pain: Code(s): R10.9 - Unspecified abdominal pain Status: Acute Assessment and Plan: Likely secondary to partial obstruction Supportive care (3) Nausea and vomiting in adult: Code(s): R11.2 - Nausea with vomiting, unspecified Status: Acute Assessment and Plan: Ondansetron 4 mg ivp q 6 PRN. (4) Stricture intestinal: Code(s): K56.699 - Other intestinal obstruction unspecified as to partial versus complete obstruction Status: Acute Assessment and Plan: Suspicious for malignancy (5) Hypokalemia: Code(s): E87.6 - Hypokalemia Status: Acute Assessment and Plan: Potassium 3.2. Potasium Chloride 40 meq IVPB x1 given. Monitor labs. Subjective Date/time seen: 10/23/24 11:09 Interval history: Patient reports pain in abdomen is a 8 , tender to palpation, and frequent. Patient denies chest pain, palpitations, headache, dizziness, nausea, or vomiting. Patient reports last bowel movement was today. Colonoscopy today. Review of Systems Review of Systems: All systems reviewed & are unremarkable except as noted in HPI and below Exam Const: General: no acute distress and uncomfortable Eyes: Sclera: sclerae normal Resp: Effort & Inspection: normal respiratory effort Auscultation: clear to auscultation bilaterally Cardio: Rate: regular rate Rhythm: regular rhythm GI: GI Palp: Yes Soft to palpation and Yes Tenderness to palpation present (GI) (across lower abdomen) Auscultation: normal bowel sounds Neuro: Speech: normal speech Extrem: General: no pedal edema Psych: Mental Status: mental status grossly normal Other: Affect a little flat. Objective Data Vital Signs Vital Signs: Vital Signs - 24 hr 10/22/24 12:49 10/22/24 14:34 10/22/24 16:00 Temperature 96.9 F L Pulse Rate 93 115 H 100 Respiratory Rate 19 18 Blood Pressure 151/80 H 154/80 H Pulse Oximetry 96 94 Oxygen Delivery 10/22/24 17:11 10/22/24 20:00 10/22/24 20:00 Temperature Pulse Rate 103 H 98 Respiratory Rate Blood Pressure Pulse Oximetry Oxygen Delivery Room Air 10/22/24 20:13 10/23/24 00:00 10/23/24 04:00 Temperature 97.4 F L Pulse Rate 80 85 84 Respiratory Rate 16 Blood Pressure 144/81 H Pulse Oximetry 93 Oxygen Delivery 10/23/24 04:26 10/23/24 04:59 10/23/24 08:33 Temperature 98.2 F Pulse Rate 106 H 101 H Respiratory Rate 16 Blood Pressure 139/71 Pulse Oximetry 95 96 Oxygen Delivery Room Air 10/23/24 09:34 10/23/24 10:04 10/23/24 10:14 Temperature 96.8 F L Pulse Rate 98 83 79 Respiratory Rate 16 28 H 27 H Blood Pressure 135/60 143/65 H 152/72 H Pulse Oximetry 96 95 96 Oxygen Delivery Room Air Room Air Room Air 10/23/24 10:24 10/23/24 10:54 Temperature 97.1 F L Pulse Rate 81 87 Respiratory Rate 21 H 16 Blood Pressure 139/71 162/62 H Pulse Oximetry 97 96 Oxygen Delivery Room Air Intake/Output Intake/Output: Intake & Output 10/20/24 10/21/24 10/22/24 10/23/24 23:59 23:59 23:59 23:59 Intake Total 2469 670 2668 Balance 8724 670 2664 Meds/Results Medications: Active Medications Generic Name Dose Route Start Last Admin Trade Name Freq PRN Reason Stop Dose Admin Acetaminophen 650 mg 10/23/24 11:03 Acetaminophen 325 Mg Tablet PO Q4H PRN Mild Pain (1-3) or Fever Amlodipine Besylate 5 mg 10/23/24 09:00 Amlodipine Besylate 5 Mg Tablet PO DAILY [facility] Ezetimibe 10 mg 10/23/24 09:00 Ezetimibe 10 Mg Tablet PO DAILY [facility] Hydrochlorothiazide 12.5 mg 10/23/24 09:00 Hydrochlorothiazide 12.5 Mg Capsule PO QAM [facility] Piperacillin/Tazobactam/Dextrose 3.375 gm in 50 mls @ 100 mls/hr 10/22/24 06:00 10/23/24 06:49 Zosyn 3.375 Gm/Ns 50 Ml IVPB Infused Q6H [facility] Infusion Potassium Chloride 40 meq/ 520 mls @ 130 mls/hr 10/23/24 08:00 Sodium Chloride IVPB 10/23/24 11:59 ONCE ONE Losartan Potassium 100 mg 10/23/24 09:00 Losartan Potassium 100 Mg Tablet PO DAILY [facility] Metoprolol Succinate 50 mg 10/22/24 16:40 10/23/24 04:26 Metoprolol Succinate Ext Rel 50 Mg Tabcr PO 50 mg Q12H FLORINDA Administration Morphine Sulfate 2 mg 10/23/24 11:03 Morphine Sulfate (*Crx) 2 Mg/Ml Inj IV PUSH Q2H PRN Pain Rated 7-10 Ondansetron HCl 4 mg 10/22/24 16:46 Ondansetron Inj 4 Mg/2 Ml Vial IV PUSH Q6H PRN Nausea And Vomiting Oxycodone HCl 2.5 mg 10/23/24 09:37 Oxycodone Hcl (*Crx) 2.5 Mg Tab Ir PO Q6H PRN Pain Rated 7-10 Oxycodone/Acetaminophen 1 tablet 10/23/24 09:36 Oxycodone/Acetaminophen (*Crx) 5-325 Mg Tablet PO Q6H PRN Pain Rated 7-10 Potassium Chloride 10 meq 10/23/24 09:00 Potassium Chloride 10 Meq Er Tablet PO DAILY [facility] Pravastatin Sodium 40 mg 10/23/24 09:00 Pravastatin Sodium 20 Mg Tablet PO DAILY [facility] Radiology Results: ITS Impressions Venous Doppler Study 10/21/24 15:46 IMPRESSION: 1. No deep venous thrombosis in the right lower limb. Abdomen/Pelvis CT 10/21/24 20:42 IMPRESSION: 1. Persistent stricture of the transverse colon with bowel obstruction suspicious for primary malignancy. 2. Nodularity of the peritoneum in the upper abdomen suspicious for peritoneal carcinomatosis. 3. Mild aortocaval lymphadenopathy suspicious for metastatic disease. Labs Labs: Laboratory Results - last 24 hr 10/23/24 10/23/24 06:24 06:28 WBC 9.4 RBC 3.99 L Hgb 11.4 L Hct 34.6 L MCV 86.7 MCH 28.6 MCHC 32.9 RDW 12.9 Plt Count 290 MPV 9.7 Immature Gran % (Auto) 0.5 Neut % (Auto) 66.5 Lymph % (Auto) 21.9 [place] % (Auto) 8.9 H Eos % (Auto) 2.0 Baso % (Auto) 0.2 Lymph # (Auto) 2.05 [place] # (Auto) 0.8 H Eos # (Auto) 0.2 Baso # (Auto) 0.0 Abs Immat Gran (auto) 0.05 H Absolute Neuts (auto) 6.2 Absolute Nucleated RBC 0.000 Nucleated RBC % 0.0 Sodium 136 L Potassium 3.2 L Chloride 102 Carbon Dioxide 24 Anion Gap 10 BUN 8 Creatinine 0.46 L Estim Creat Clear Calc 97 Estimated GFR > 60 Glucose 131 H Calcium 8.6 Magnesium 2.1 Total Bilirubin 0.8 AST 19 ALT 16 Alkaline Phosphatase 79 Total Protein 7.0 Albumin 3.6 Carcinoembryonic Ag 0.7 Quality VTE Prophylaxis VTE prophylaxis: mechanical ordered
[2024-10-23] MEDS: MORPHINE SULFATE (*CRX) 2 MG/ML INJ IV PUSH (11:35)
[2024-10-23] MEDS: POTASSIUM CHLORIDE INJ 40 MEQ in SODIUM CHLORIDE 0.9% IV 500 ML 130 MEQ IVPB (11:36)
[2024-10-23] MEDS: LOSARTAN POTASSIUM 100 MG TABLET PO (11:37)
[2024-10-23] MEDS: PRAVASTATIN SODIUM 20 MG TABLET 40 MG PO (11:37)
[2024-10-23] MEDS: hydroCHLOROthiazide 12.5 MG CAPSULE PO (11:37)
[2024-10-23] MEDS: amLODIPine BESYLATE 5 MG TABLET PO (11:37)
[2024-10-23] MEDS: EZETIMIBE 10 MG TABLET PO (11:38)
--- NOTE | 2024-10-23 14:25 | PC.NURSE ---
Returned from GI Lab at 1040. Report received from ASUNCION Lopez.
--- NOTE | 2024-10-23 15:35 | WPDPN ---
Progress Note: A&P Assessment and Plan (1) Stricture intestinal: Code(s): K56.699 - Other intestinal obstruction unspecified as to partial versus complete obstruction Status: Acute Assessment and Plan: Patient has a malignant-appearing stricture mass effect in proximal transverse and hepatic flexure of the colon. Biopsies were obtained and colonoscopy and sent to pathology. It will be least 3 days we get a pathology result back. However by imaging as well as laparoscopic description and evidence of mild aortocaval lymphadenopathy this appears to be consistent with a colon cancer. There is some thickened omentum in the right upper quadrant up against the abdominal wall which may represent omentum. After reviewing the CT scan with the radiologist she feels that this can be biopsied with ultrasound guidance. I have ordered this to be done for tomorrow in Radiology. If this shows advanced disease with at least omental metastasis in the patient may be a candidate for resection and HIPEC. Will discuss with Surgical Oncology surgeons [place] and refer if appropriate. For now stay on clear liquids. Albumin is 3.8 so would not start on TPN just yet. Subjective Date/time seen: 10/23/24 15:35 Interval history: Patient had colonoscopy this morning. She is back in her room now and has no complaints. The colonoscopy revealed malignant-appearing stricture ring mass the proximal transverse and hepatic flexure of the colon. Biopsies were obtained and sent to pathology for processing. She was started back on clear liquids which she is tolerating. Exam GI: Other: Abdomen is moderately obese. Soft. No appreciable masses. Well-healed low transverse Pfannenstiel scar without incisional hernia. No other ventral hernias. Objective Data Vital Signs Vital Signs: Vital Signs - 24 hr 10/22/24 16:00 10/22/24 17:11 10/22/24 20:00 Temperature Pulse Rate 100 103 H Respiratory Rate Blood Pressure Pulse Oximetry Oxygen Delivery Room Air 10/22/24 20:00 10/22/24 20:13 10/23/24 00:00 Temperature 36.3 C L Pulse Rate 98 80 85 Respiratory Rate 16 Blood Pressure 144/81 H Pulse Oximetry 93 Oxygen Delivery 10/23/24 04:00 10/23/24 04:26 10/23/24 04:59 Temperature 36.8 C Pulse Rate 84 106 H 101 H Respiratory Rate 16 Blood Pressure 139/71 Pulse Oximetry 95 Oxygen Delivery 10/23/24 08:00 10/23/24 08:33 10/23/24 09:34 Temperature 36.0 C L Pulse Rate 73 98 Respiratory Rate 16 Blood Pressure 135/60 Pulse Oximetry 96 96 Oxygen Delivery Room Air Room Air 10/23/24 10:04 10/23/24 10:14 10/23/24 10:24 Temperature Pulse Rate 83 79 81 Respiratory Rate 28 H 27 H 21 H Blood Pressure 143/65 H 152/72 H 139/71 Pulse Oximetry 95 96 97 Oxygen Delivery Room Air Room Air Room Air 10/23/24 10:54 10/23/24 15:18 Temperature 36.2 C L 36.3 C L Pulse Rate 87 88 Respiratory Rate 16 17 Blood Pressure 162/62 H 121/54 L Pulse Oximetry 96 93 Oxygen Delivery Intake/Output Intake/Output: Intake & Output 10/20/24 10/21/24 10/22/24 10/23/24 23:59 23:59 23:59 23:59 Intake Total 2550 670 2716 Balance 2550 670 2713 Meds/Results Medications: Active Medications Generic Name Dose Route Start Last Admin Trade Name Freq PRN Reason Stop Dose Admin Acetaminophen 650 mg 10/23/24 11:03 Acetaminophen 325 Mg Tablet PO Q4H PRN Mild Pain (1-3) or Fever Amlodipine Besylate 5 mg 10/23/24 09:00 10/23/24 11:37 Amlodipine Besylate 5 Mg Tablet PO 5 mg DAILY FLORINDA Administration Ezetimibe 10 mg 10/23/24 09:00 10/23/24 11:38 Ezetimibe 10 Mg Tablet PO 10 mg DAILY FLORINDA Administration Hydrochlorothiazide 12.5 mg 10/23/24 09:00 10/23/24 11:37 Hydrochlorothiazide 12.5 Mg Capsule PO 12.5 mg QAM FLORINDA Administration Piperacillin/Tazobactam/Dextrose 3.375 gm in 50 mls @ 100 mls/hr 10/22/24 06:00 10/23/24 13:40 Zosyn 3.375 Gm/Ns 50 Ml IVPB Infused Q6H [facility] Infusion Losartan Potassium 100 mg 10/23/24 09:00 10/23/24 11:37 Losartan Potassium 100 Mg Tablet PO 100 mg DAILY FLORINDA Administration Metoprolol Succinate 50 mg 10/22/24 16:40 10/23/24 04:26 Metoprolol Succinate Ext Rel 50 Mg Tabcr PO 50 mg Q12H FLORINDA Administration Morphine Sulfate 2 mg 10/23/24 11:03 10/23/24 11:35 Morphine Sulfate (*Crx) 2 Mg/Ml Inj IV PUSH 2 mg Q2H PRN Administration Pain Rated 7-10 Ondansetron HCl 4 mg 10/22/24 16:46 Ondansetron Inj 4 Mg/2 Ml Vial IV PUSH Q6H PRN Nausea And Vomiting Oxycodone HCl 2.5 mg 10/23/24 09:37 Oxycodone Hcl (*Crx) 2.5 Mg Tab Ir PO Q6H PRN Pain Rated 7-10 Oxycodone/Acetaminophen 1 tablet 10/23/24 09:36 Oxycodone/Acetaminophen (*Crx) 5-325 Mg Tablet PO Q6H PRN Pain Rated 7-10 Potassium Chloride 10 meq 10/23/24 09:00 10/23/24 11:38 Potassium Chloride 10 Meq Er Tablet PO Not Given DAILY [facility]ORIN[facility] Pravastatin Sodium 40 mg 10/23/24 09:00 10/23/24 11:37 Pravastatin Sodium 20 Mg Tablet PO 40 mg DAILY FLORINDA Administration Radiology Results: ITS Impressions Venous Doppler Study 10/21/24 15:46 IMPRESSION: 1. No deep venous thrombosis in the right lower limb. Abdomen/Pelvis CT 10/21/24 20:42 IMPRESSION: 1. Persistent stricture of the transverse colon with bowel obstruction suspicious for primary malignancy. 2. Nodularity of the peritoneum in the upper abdomen suspicious for peritoneal carcinomatosis. 3. Mild aortocaval lymphadenopathy suspicious for metastatic disease. Labs Labs: Laboratory Results - last 24 hr 10/23/24 10/23/24 06:24 06:28 WBC 9.4 RBC 3.99 L Hgb 11.4 L Hct 34.6 L MCV 86.7 MCH 28.6 MCHC 32.9 RDW 12.9 Plt Count 290 MPV 9.7 Immature Gran % (Auto) 0.5 Neut % (Auto) 66.5 Lymph % (Auto) 21.9 [place] % (Auto) 8.9 H Eos % (Auto) 2.0 Baso % (Auto) 0.2 Lymph # (Auto) 2.05 [place] # (Auto) 0.8 H Eos # (Auto) 0.2 Baso # (Auto) 0.0 Abs Immat Gran (auto) 0.05 H Absolute Neuts (auto) 6.2 Absolute Nucleated RBC 0.000 Nucleated RBC % 0.0 Sodium 136 L Potassium 3.2 L Chloride 102 Carbon Dioxide 24 Anion Gap 10 BUN 8 Creatinine 0.46 L Estim Creat Clear Calc 97 Estimated GFR > 60 Glucose 131 H Calcium 8.6 Magnesium 2.1 Total Bilirubin 0.8 AST 19 ALT 16 Alkaline Phosphatase 79 Total Protein 7.0 Albumin 3.6 Carcinoembryonic Ag 0.7
--- NOTE | 2024-10-23 18:03 | P.CONONC_ITS ---
Assessment and Plan Assessment and plan (1) Mass of colon: Code(s): K63.89 - Other specified diseases of intestine Status: Acute Assessment and Plan: This is a pleasant 68-year-old female with history of cervical cancer, left-sided breast cancer and recently skin cancer came into the hospital with abdominal pain and diarrhea. CT scan showed stricture of the transverse colon, nodularity of the peritoneum in the upper abdomen suspicious for peritoneal carcinomatosis and mailed aortocaval lymphadenopathy. Patient has sigmoidoscopy done and biopsy is pending. I will order CT chest for completion of staging. This seems to be metastatic disease with peritoneal carcinomatosis. Patient will be a candidate for chemotherapy as an outpatient. I will order PET scan after the discharge. She will need port placement. Patient will follow-up with us as an outpatient. HPI Data of Consult Date/Time: 10/23/24 18:03 Requesting Physician: Rosita Bauman MD Primary Care Provider: Emperatriz OliviaMD Consult Narrative Narrative: Hayden Estrella is a 68 year old female with history of cervical cancer diagnosed in 1987 status post hysterectomy, left-sided breast cancer status post lumpectomy and radiation therapy in 2021 and then recently skin cancer removal was recently treated for UTI at hospital came into the hospital with right-sided abdominal pain along with diarrhea. She denies any melena CT scan abdomen and pelvis showed colonic stricture suspicious for malignancy along with nodularity in the peritoneum in the upper abdomen suspicion for peritoneal carcinomatosis and mild aortocaval lymphadenopathy suspicious for metastatic disease. Patient had sigmoidoscopy done that showed diverticulosis without perforation or abscess along with malignant appearing mass at the transverse colon and internal hemorrhoids. Biopsies were taken and pathology is pending. Review of Systems 2 Review of Systems: Review of system as per HPI otherwise negative [facility] Past Medical History Medical History Hyperlipidemia Hypertension History of cervical cancer History of breast cancer Surgical History Surgical History History of laparotomy She had some open repair for prolapse, possibly cystocele History of total abdominal hysterectomy History of lumpectomy of left breast Family History Family History Sibling Lung cancer COVID Diabetes mellitus Father Leukemia Mother Heart trouble Social History Social History Smoking status: Never smoker Second hand tobacco smoke exposure: No Alcohol intake: never Substance use: never Do You Feel Safe in your Home?: Yes Lack of Transportation: No Lack of Food: Never True Current Housing: I Have Housing Concerned About Future Housing: No Difficulty Paying Gas/Electric Bills: No Difficulty Paying for Meds: No Currently Unemployed: No Education: Grade School Difficulty w/ Childcare or Family Care: No Spiritual care concerns: No Meds Home Medications and Allergies Home Medications ?Medication ?Instructions ?Recorded ?Confirmed ?Type amlodipine 5 mg tablet 5 mg PO DAILY 10/15/24 10/22/24 History aspirin 81 mg chewable tablet 81 mg PO DAILY 10/15/24 10/22/24 History ezetimibe 10 mg tablet 10 mg PO DAILY 10/15/24 10/22/24 History losartan 100 1 tablet PO DAILY 10/15/24 10/22/24 History mg-hydrochlorothiazide 12.5 mg tablet metoprolol succinate 50 mg 50 mg PO Q12H 10/15/24 10/22/24 History tablet,extended release 24 hr potassium chloride 10 mEq 10 meq PO DAILY 10/15/24 10/22/24 History tablet,extended release pravastatin 40 mg tablet 40 mg PO DAILY 10/15/24 10/22/24 History levofloxacin 750 mg tablet 750 mg PO DAILY 11 days #11 tabs 10/18/24 10/22/24 Rx metronidazole 500 mg tablet 500 mg PO Q8H 11 days #33 tabs 10/18/24 10/22/24 Rx oxycodone-acetaminophen 7.5 mg-325 1 tablet PO Q6H PRN pain 5 days #7 10/18/24 10/22/24 Rx mg tablet tabs Allergies Allergy/AdvReac Type Severity Reaction Status Date / Time No Known Allergies Allergy Verified 10/23/24 09:33 Vital Signs Vital Signs - 24 hr 10/22/24 20:00 10/22/24 20:00 10/22/24 20:13 Temperature 36.3 C L Pulse Rate 98 80 Respiratory Rate 16 Blood Pressure 144/81 H Pulse Oximetry 93 Oxygen Delivery Room Air 10/23/24 00:00 10/23/24 04:00 10/23/24 04:26 Temperature Pulse Rate 85 84 106 H Respiratory Rate Blood Pressure Pulse Oximetry Oxygen Delivery 10/23/24 04:59 10/23/24 08:00 10/23/24 08:33 Temperature 36.8 C Pulse Rate 101 H 73 Respiratory Rate 16 Blood Pressure 139/71 Pulse Oximetry 95 96 Oxygen Delivery Room Air 10/23/24 09:34 10/23/24 10:04 10/23/24 10:14 Temperature 36.0 C L Pulse Rate 98 83 79 Respiratory Rate 16 28 H 27 H Blood Pressure 135/60 143/65 H 152/72 H Pulse Oximetry 96 95 96 Oxygen Delivery Room Air Room Air Room Air 10/23/24 10:24 10/23/24 10:54 10/23/24 12:00 Temperature 36.2 C L Pulse Rate 81 87 86 Respiratory Rate 21 H 16 Blood Pressure 139/71 162/62 H Pulse Oximetry 97 96 Oxygen Delivery Room Air 10/23/24 15:18 10/23/24 16:00 10/23/24 16:41 Temperature 36.3 C L Pulse Rate 88 86 109 H Respiratory Rate 17 Blood Pressure 121/54 L Pulse Oximetry 93 Oxygen Delivery Exam 2 Narrative: Lungs are clear to auscultation bilaterally Cardiovascular regular rate rhythm no murmurs Abdomen slight tenderness in the mid epigastric region bowel sounds are positive no hepatosplenomegaly Extremities no edema Results Labs 10/23/24 06:28 10/23/24 06:28 Labs: Short CBC 10/23/24 Range/Units 06:28 WBC 9.4 (4.5-10.0) K/mm3 Hgb 11.4 L (12.0-15.0) g/dL Hct 34.6 L (37.0-47.0) % Plt Count 290 (150-375) k/mm3 BMP 10/23/24 06:28 Sodium 136 L Potassium 3.2 L Chloride 102 Carbon Dioxide 24 BUN 8 Creatinine 0.46 L Glucose 131 H Calcium 8.6 Liver Function 10/23/24 Range/Units 06:28 Total Bilirubin 0.8 (0.2-1.3) mg/dL AST 19 (14-36) U/L ALT 16 (6-35) U/L Alkaline Phosphatase 79 (38-126) U/L Albumin 3.6 (3.5-5.1) g/dL
[2024-10-24] VITALS (12 sets, daily range): BP systolic 108–134; BP diastolic 67–76; PULSE 85–98; RESP 16–20; TEMP 36.5–36.6; O2SAT 92–96; BMI 36.5
[2024-10-24] MEDS: PIPERACILLN/TAZ 3.375GM/NS50ML 3.375 GM/50 ML BAG IVPB ×3 (00:05→11:28)
[2024-10-24] MEDS: METOPROLOL SUCCINATE EXT REL 50 MG TABCR PO ×2 (05:54→20:17)
[2024-10-24 06:49] LABS: Basophils Percent Auto 0.3 % (0.2-1.2); Eosinophils Absolute Auto 0.1 K/mm3 (0-0.3); Eosinophils Percent Auto 0.9 % (0-4.4); Hematocrit 34.7 % (37.0-47.0); Hemoglobin 11.4 g/dL (12.0-15.0); Immature Granulocyte Absolute 0.04 K/mm3 (0.00-0.031); Immature Granulocyte Percent A 0.4 % (0-0.5); Lymphocytes Absolute Auto 1.93 K/mm3 (0.9-3.2); Mean Corpuscular HGB Conc 32.9 g/dl (32-36); Mean Corpuscular Hemoglobin 28.6 pg (26-34); Mean Platelet Volume 9.9 fl (7.4-10.4); Monocytes Absolute Auto 0.8 K/mm3 (0.1-0.6); Monocytes Percent Auto 7.6 % (2.6-8.5); Neutrophils Absolute Auto 7.8 K/mm3 (1.3-6.7); Neutrophils Percent Auto 72.8 % (45.5-73.1); Platelet Count Result 271 k/mm3 (150-375); Red Blood Count 3.99 M/mm3 (4.2-5.4); White Blood Count 10.7 K/mm3 (4.5-10.0)
[2024-10-24 07:06] LABS: Alanine Aminotransferase 14 U/L (6-35); Albumin Level 3.2 g/dL (3.5-5.1); Alkaline Phosphatase 70 U/L (38-126); Anion Gap 10 mmol/L (4-12); Aspartate Amino Transferase 17 U/L (14-36); Bilirubin,Total 0.9 mg/dL (0.2-1.3); Blood Urea Nitrogen 6 mg/dL (7-17); Calcium 8.6 mg/dL (8.4-10.2); Carbon Dioxide 27 mmol/L (22-30); Chloride 98 mmol/L (98-107); Estimated CRCL calculation 95 ml/min; Estimated Glomerular Filt Rate > 60; Glucose 120 mg/dL (65-110); Sodium 135 mmol/L (137-145)
--- NOTE | 2024-10-24 09:56 | P.PNIM_ITS ---
Progress Note: A&P Assessment and Plan (1) Bowel obstruction: Code(s): K56.609 - Unspecified intestinal obstruction, unspecified as to partial versus complete obstruction Status: Acute Assessment and Plan: * Admit to regular medical floor * GI consulted * WBC improved from 14.3> 10.2>9.4>10.7. * Carcinoembryronic Antigen 0.7. * Colonoscopy done 10/23/24 showed: a few diverticula were present in the sigmoid colon. The diverticula were not actively bleeding. A partially-obstructing, large-size friable, infiltrative, malignant appearing, circumferential mass was observed in the transverse colon, size about 3-4 cm, noted small lumen probably 7-8 mm diameter and unable to traverse with scope and reach cecum (original plan was to perform a full colonoscopy). Multiple biopsies were taken. A few small-size internal hemorrhoids were seen in the rectum. The hemorrhoids were not actively bleeding. * Endoscopic diagnosis: Diverticulosis without perforation or abscess without bleeding (K57.30), Malignant appearing colonic mass at transverse colon (C18.4), and Internal hemorrhoids (K64.8). * Surgery following. * Dr. Otero today wrote in plan: Patient has a malignant-appearing stricture mass effect in proximal transverse and hepatic flexure of the colon. Biopsies were obtained and colonoscopy and sent to pathology. It will be least 3 days we get a pathology result back. However by imaging as well as laparoscopic description and evidence of mild aortocaval lymphadenopathy this appears to be consistent with a colon cancer. There is some thickened omentum in the right upper quadrant up against the abdominal wall which may represent omentum. After reviewing the CT scan with the radiologist she feels that this can be biopsied with ultrasound guidance. I have ordered this to be done for tomorrow in Radiology. If this shows advanced disease with at least omental metastasis in the patient may be a candidate for resection and HIPEC. Will discuss with Surgical Oncology surgeons [facility] and refer if appropriate. For now stay on clear liquids. Albumin is 3.8 so would not start on TPN just yet. * Patient is NPO for US biopsy of abdomen retroperitoneal. Patient reports that plan is for surgery on Sunday. (2) Abdominal pain: Code(s): R10.9 - Unspecified abdominal pain Status: Acute Assessment and Plan: * Likely secondary to partial obstruction * Supportive care (3) Nausea and vomiting in adult: Code(s): R11.2 - Nausea with vomiting, unspecified Status: Acute Assessment and Plan: * Ondansetron 4 mg ivp q 6 PRN. (4) Stricture intestinal: Code(s): K56.699 - Other intestinal obstruction unspecified as to partial versus complete obstruction Status: Acute Assessment and Plan: * Suspicious for malignancy (5) Hypokalemia: Code(s): E87.6 - Hypokalemia Status: Acute Assessment and Plan: * Potassium 3.0. * Potasium Chloride 40 meq IVPB x1 given. * Monitor labs. Subjective Date/time seen: 10/24/24 09:56 Interval history: Patient sitting up in chair with family at bedside. Patient reports pain in lower pelvis vaginal area a 5 when she leans forward, pain is frequent, and a pressure. Patient reports feeling like she has gas pressure from colonoscopy. Patient denies chest pain, palpitations, headache, dizziness, nausea, or vomiting. Patient is NPO for US biopsy of abdomen retroperitoneal. Patient reports that plan is for surgery on Sunday. Review of Systems Review of Systems: All systems reviewed & are unremarkable except as noted in HPI and below Exam Const: General: no acute distress and uncomfortable Eyes: Sclera: sclerae normal Resp: Effort & Inspection: normal respiratory effort Auscultation: clear to auscultation bilaterally Cardio: Rate: regular rate Rhythm: regular rhythm GI: GI Palp: Yes Soft to palpation and Yes Tenderness to palpation present (GI) (across lower abdomen ) Auscultation: normal bowel sounds Neuro: Speech: normal speech Extrem: General: pedal edema bilaterally (Trace) Psych: Mental Status: mental status grossly normal Affect: normal affect Objective Data Vital Signs Vital Signs: Vital Signs - 24 hr 10/23/24 10:04 10/23/24 10:14 10/23/24 10:24 Temperature Pulse Rate 83 79 81 Respiratory Rate 28 H 27 H 21 H Blood Pressure 143/65 H 152/72 H 139/71 Pulse Oximetry 95 96 97 Oxygen Delivery Room Air Room Air Room Air 10/23/24 10:54 10/23/24 12:00 10/23/24 15:18 Temperature 97.1 F L 97.3 F L Pulse Rate 87 86 88 Respiratory Rate 16 17 Blood Pressure 162/62 H 121/54 L Pulse Oximetry 96 93 Oxygen Delivery 10/23/24 16:00 10/23/24 16:41 10/23/24 20:00 Temperature Pulse Rate 86 109 H Respiratory Rate Blood Pressure Pulse Oximetry Oxygen Delivery Room Air 10/23/24 20:00 10/23/24 20:36 10/24/24 00:00 Temperature 99.5 F Pulse Rate 95 87 94 Respiratory Rate 18 Blood Pressure 126/50 L Pulse Oximetry 96 Oxygen Delivery 10/24/24 00:07 10/24/24 04:00 10/24/24 04:17 Temperature 97.8 F Pulse Rate 93 86 89 Respiratory Rate 16 20 Blood Pressure 123/67 108/67 Pulse Oximetry 93 93 Oxygen Delivery 10/24/24 05:54 Temperature Pulse Rate 94 Respiratory Rate Blood Pressure Pulse Oximetry Oxygen Delivery Intake/Output Intake/Output: Intake & Output 10/21/24 10/22/24 10/23/24 10/24/24 23:59 23:59 23:59 23:59 Intake Total 6572 670 2864 650 Balance 2550 670 2864 650 Meds/Results Medications: Active Medications Generic Name Dose Route Start Last Admin Trade Name Freq PRN Reason Stop Dose Admin Acetaminophen 650 mg 10/23/24 11:03 Acetaminophen 325 Mg Tablet PO Q4H PRN Mild Pain (1-3) or Fever Amlodipine Besylate 5 mg 10/23/24 09:00 10/23/24 11:37 Amlodipine Besylate 5 Mg Tablet PO 5 mg DAILY FLORINDA Administration Benzocaine 1 lozenge 10/23/24 18:37 Benzocaine/Menthol (*Bkc) 18 Ea Lozenge PO PRN PRN Sore Throat Ezetimibe 10 mg 10/23/24 09:00 10/23/24 11:38 Ezetimibe 10 Mg Tablet PO 10 mg DAILY FLORINDA Administration Hydrochlorothiazide 12.5 mg 10/23/24 09:00 10/23/24 11:37 Hydrochlorothiazide 12.5 Mg Capsule PO 12.5 mg QAM FLORINDA Administration Piperacillin/Tazobactam/Dextrose 3.375 gm in 50 mls @ 100 mls/hr 10/22/24 06:00 10/24/24 06:18 Zosyn 3.375 Gm/Ns 50 Ml IVPB Infused Q6H FLORINDA Infusion Potassium Chloride 40 meq/ 520 mls @ 130 mls/hr 10/24/24 08:00 Sodium Chloride IVPB 10/24/24 11:59 ONCE ONE Dextrose 1,000 mls @ 50 mls/hr 10/24/24 09:09 Dextrose 10% IV CONT .Q20H PRN if PN is interrupted Losartan Potassium 100 mg 10/23/24 09:00 10/23/24 11:37 Losartan Potassium 100 Mg Tablet PO 100 mg DAILY FLORINDA Administration Metoprolol Succinate 50 mg 10/24/24 06:00 10/24/24 05:54 Metoprolol Succinate Ext Rel 50 Mg Tabcr PO 50 mg Q12H FLORINDA Administration Morphine Sulfate 2 mg 10/23/24 11:03 10/23/24 11:35 Morphine Sulfate (*Crx) 2 Mg/Ml Inj IV PUSH 2 mg Q2H PRN Administration Pain Rated 7-10 Ondansetron HCl 4 mg 10/22/24 16:46 Ondansetron Inj 4 Mg/2 Ml Vial IV PUSH Q6H PRN Nausea And Vomiting Oxycodone HCl 2.5 mg 10/23/24 09:37 Oxycodone Hcl (*Crx) 2.5 Mg Tab Ir PO Q6H PRN Pain Rated 7-10 Oxycodone/Acetaminophen 1 tablet 10/23/24 09:36 Oxycodone/Acetaminophen (*Crx) 5-325 Mg Tablet PO Q6H PRN Pain Rated 7-10 Potassium Chloride 10 meq 10/23/24 09:00 10/23/24 11:38 Potassium Chloride 10 Meq Er Tablet PO Not Given DAILY FLORINDA Pravastatin Sodium 40 mg 10/23/24 09:00 10/23/24 11:37 Pravastatin Sodium 20 Mg Tablet PO 40 mg DAILY FLORINDA Administration Radiology Results: ITS Impressions Venous Doppler Study 10/21/24 15:46 IMPRESSION: 1. No deep venous thrombosis in the right lower limb. Chest CT 10/23/24 20:15 IMPRESSION: Pretracheal lymphadenopathy, otherwise unremarkable intrathoracic findings. Moderate pneumoperitoneum concerning for interval bowel perforation. Results reported telephonically to Jessica Rocha RN by Dr. Sales at 8:23 PM on 10/23/2024. Abdomen/Pelvis CT 10/23/24 21:37 IMPRESSION: Moderate pneumoperitoneum concerning for large bowel perforation. A definite bowel wall defect is not identified. Candidate location at the hepatic flexure based on the presence of a slightly increased amount of pericolonic mesenteric gas bubbles. Persistent stricture of the transverse colon with slight interval decompression of the dilated proximal large bowel. 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 Labs Labs: Laboratory Results - last 24 hr 10/24/24 06:01 WBC 10.7 H RBC 3.99 L Hgb 11.4 L Hct 34.7 L MCV 87.0 MCH 28.6 MCHC 32.9 RDW 13.0 Plt Count 271 MPV 9.9 Immature Gran % (Auto) 0.4 Neut % (Auto) 72.8 Lymph % (Auto) 18.0 L [place] % (Auto) 7.6 Eos % (Auto) 0.9 Baso % (Auto) 0.3 Lymph # (Auto) 1.93 [place] # (Auto) 0.8 H Eos # (Auto) 0.1 Baso # (Auto) 0.0 Abs Immat Gran (auto) 0.04 H Absolute Neuts (auto) 7.8 H Absolute Nucleated RBC 0.000 Nucleated RBC % 0.0 Sodium 135 L Potassium 3.0 L Chloride 98 Carbon Dioxide 27 Anion Gap 10 BUN 6 L Creatinine 0.47 L Estim Creat Clear Calc 95 Estimated GFR > 60 Glucose 120 H Calcium 8.6 Total Bilirubin 0.9 AST 17 ALT 14 Alkaline Phosphatase 70 Total Protein 6.0 L Albumin 3.2 L Quality VTE Prophylaxis VTE prophylaxis: mechanical ordered
[2024-10-24 10:03] LABS: Magnesium 2.1 mg/dL (1.6-2.3)
[2024-10-24 10:15] LABS: Transferrin 184 mg/dL (206-381)
[2024-10-24 10:39] LABS: INR 1.1; Prothrombin Time 14.8 Seconds (11.1-14.7)
[2024-10-24 10:40] LABS: Partial Thromboplastin Time 29.4 Seconds (22.3-36.8)
[2024-10-24 12:06] LABS: Glucose Point of Care 129 mg/dl (65-105)
--- NOTE | 2024-10-24 14:11 | PCWOUND ---
WOCN NOTE Received consult to sumaay patient for diverting loop ilesotomy. Received order to sumaya both Right and Left side of abdomen. Abdomen assessed with patient in sitting and supine position. After assessment, a black X placed on both sides in most optimal position. Applied a Tegaderm to both areas.
--- NOTE | 2024-10-24 14:19 | P.PNAN_ITS ---
Anes - Prog Note Post-Op Date/Time: 10/24/24 14:19 Cardiovascular status: normal Respiratory status: normal Airway patency: baseline Mental status: baseline Post-Op hydration status: normal Vital Signs: Last Vital Signs Temp 36.6 C 10/24/24 14:00 Pulse 90 10/24/24 14:00 Resp 18 10/24/24 14:00 BP 110/76 10/24/24 14:00 Pulse Ox 96 10/24/24 14:00 O2 Del Method Room Air 10/23/24 20:00 Pain Score (VAS): 0 I/O: Intake & Output 10/23/24 10/24/24 10/24/24 23:59 07:59 15:59 Intake Total 150 650 Balance 150 650 Laboratory Tests 10/24/24 06:01 10/24/24 06:01 10/24/24 10/24/24 10/24/24 06:00 06:01 09:57 WBC 10.7 H RBC 3.99 L Hgb 11.4 L Hct 34.7 L MCV 87.0 MCH 28.6 MCHC 32.9 RDW 13.0 Plt Count 271 MPV 9.9 Immature Gran % (Auto) 0.4 Neut % (Auto) 72.8 Lymph % (Auto) 18.0 L [place] % (Auto) 7.6 Eos % (Auto) 0.9 Baso % (Auto) 0.3 Lymph # (Auto) 1.93 [place] # (Auto) 0.8 H Eos # (Auto) 0.1 Baso # (Auto) 0.0 Abs Immat Gran (auto) 0.04 H Absolute Neuts (auto) 7.8 H Absolute Nucleated RBC 0.000 Nucleated RBC % 0.0 PT 14.8 H INR 1.1 APTT 29.4 Sodium 135 L Potassium 3.0 L Chloride 98 Carbon Dioxide 27 Anion Gap 10 BUN 6 L Creatinine 0.47 L Estim Creat Clear Calc 95 Estimated GFR > 60 Glucose 120 H POC Capillary Glucose Calcium 8.6 Magnesium 2.1 Transferrin 184 L Total Bilirubin 0.9 AST 17 ALT 14 Alkaline Phosphatase 70 Total Protein 6.0 L Albumin 3.2 L 10/24/24 12:02 WBC RBC Hgb Hct MCV MCH MCHC RDW Plt Count MPV Immature Gran % (Auto) Neut % (Auto) Lymph % (Auto) [place] % (Auto) Eos % (Auto) Baso % (Auto) Lymph # (Auto) [place] # (Auto) Eos # (Auto) Baso # (Auto) Abs Immat Gran (auto) Absolute Neuts (auto) Absolute Nucleated RBC Nucleated RBC % PT INR APTT Sodium Potassium Chloride Carbon Dioxide Anion Gap BUN Creatinine Estim Creat Clear Calc Estimated GFR Glucose POC Capillary Glucose 129 H Calcium Magnesium Transferrin Total Bilirubin AST ALT Alkaline Phosphatase Total Protein Albumin Post-procedural complaints: none Patient Feedback: Patient satisfied with anesthetic care.
--- NOTE | 2024-10-24 15:11 | P.PNGI_ITS ---
Progress Note: A&P Assessment and Plan (1) Mass of colon: Code(s): K63.89 - Other specified diseases of intestine Status: Acute Assessment and Plan: colonoscopy revealed large mass in right colon with narrowing of lumen (partial obstruction, unable to traverse with scope) surgery and oncology on board, pending biopsies of omentum to confirm mets should be ok to discontinue antibiotics (no colitis) liquid diet for now will follow as needed, call if questions (2) Right sided abdominal pain: Code(s): R10.9 - Unspecified abdominal pain Status: Acute (3) Bowel obstruction: Code(s): K56.609 - Unspecified intestinal obstruction, unspecified as to partial versus complete obstruction Status: Acute Subjective Date/time seen: 10/24/24 15:11 Interval history: colonoscopy yesterday with partial colon obstruction c/w malignancy (pending biopsies) Review of Systems 2 Review of Systems: All systems reviewed & are unremarkable except as noted in HPI and below Exam Const: General: comfortable and no acute distress HENMT: Face/Nose/Sinus: Normal nares present Eyes: General: appearance normal, both eyes and all related structures Neck: Neck: supple Resp: Auscultation: clear to auscultation bilaterally Cardio: Rate: regular rate Rhythm: regular rhythm GI: Inspection: distended GI Palp: Yes Soft to palpation and Yes Tenderness to palpation present (GI) (ttp in right side, no rebound) Skin: General skin exam: normal color Neuro: Speech: normal speech Motor exam (neuro): 5/5 motor strength present throughout Extrem: General: normal to inspection Psych: Mental Status: mental status grossly normal Objective Data Vital Signs Vital Signs: Vital Signs - 24 hr 10/23/24 15:18 10/23/24 16:00 10/23/24 16:41 Temperature 97.3 F L Pulse Rate 88 86 109 H Respiratory Rate 17 Blood Pressure 121/54 L Pulse Oximetry 93 Oxygen Delivery 10/23/24 20:00 10/23/24 20:00 10/23/24 20:36 Temperature 99.5 F Pulse Rate 95 87 Respiratory Rate 18 Blood Pressure 126/50 L Pulse Oximetry 96 Oxygen Delivery Room Air 10/24/24 00:00 10/24/24 00:07 10/24/24 04:00 Temperature Pulse Rate 94 93 86 Respiratory Rate 16 Blood Pressure 123/67 Pulse Oximetry 93 Oxygen Delivery 10/24/24 04:17 10/24/24 05:54 10/24/24 14:00 Temperature 97.8 F 97.9 F Pulse Rate 89 94 90 Respiratory Rate 20 18 Blood Pressure 108/67 110/76 Pulse Oximetry 93 96 Oxygen Delivery Intake/Output Intake/Output: Intake & Output 10/21/24 10/22/24 10/23/24 10/24/24 23:59 23:59 23:59 23:59 Intake Total 8560 670 2864 650 Balance 2550 670 2864 650 Meds/Results Medications: Active Medications Generic Name Dose Route Start Last Admin Trade Name Freq PRN Reason Stop Dose Admin Acetaminophen 650 mg 10/23/24 11:03 Acetaminophen 325 Mg Tablet PO Q4H PRN Mild Pain (1-3) or Fever Amlodipine Besylate 5 mg 10/23/24 09:00 10/23/24 11:37 Amlodipine Besylate 5 Mg Tablet PO 5 mg DAILY FLORINDA Administration Benzocaine 1 lozenge 10/23/24 18:37 Benzocaine/Menthol (*Bkc) 18 Ea Lozenge PO PRN PRN Sore Throat Ezetimibe 10 mg 10/23/24 09:00 10/23/24 11:38 Ezetimibe 10 Mg Tablet PO 10 mg DAILY FLORINDA Administration Hydrochlorothiazide 12.5 mg 10/23/24 09:00 10/23/24 11:37 Hydrochlorothiazide 12.5 Mg Capsule PO 12.5 mg QAM FLORINDA Administration Piperacillin/Tazobactam/Dextrose 3.375 gm in 50 mls @ 100 mls/hr 10/22/24 06:00 10/24/24 11:28 Zosyn 3.375 Gm/Ns 50 Ml IVPB 100 mls/hr Q6H FLORINDA Administration Dextrose 1,000 mls @ 50 mls/hr 10/24/24 09:09 Dextrose 10% IV CONT .Q20H PRN if PN is interrupted Losartan Potassium 100 mg 10/23/24 09:00 10/23/24 11:37 Losartan Potassium 100 Mg Tablet PO 100 mg DAILY FLORINDA Administration Metoprolol Succinate 50 mg 10/24/24 06:00 10/24/24 05:54 Metoprolol Succinate Ext Rel 50 Mg Tabcr PO 50 mg Q12H FLORINDA Administration Morphine Sulfate 2 mg 10/23/24 11:03 10/23/24 11:35 Morphine Sulfate (*Crx) 2 Mg/Ml Inj IV PUSH 2 mg Q2H PRN Administration Pain Rated 7-10 Ondansetron HCl 4 mg 10/22/24 16:46 Ondansetron Inj 4 Mg/2 Ml Vial IV PUSH Q6H PRN Nausea And Vomiting Oxycodone HCl 2.5 mg 10/23/24 09:37 Oxycodone Hcl (*Crx) 2.5 Mg Tab Ir PO Q6H PRN Pain Rated 7-10 Oxycodone/Acetaminophen 1 tablet 10/23/24 09:36 Oxycodone/Acetaminophen (*Crx) 5-325 Mg Tablet PO Q6H PRN Pain Rated 7-10 Potassium Chloride 10 meq 10/23/24 09:00 10/23/24 11:38 Potassium Chloride 10 Meq Er Tablet PO Not Given DAILY FLORINDA Pravastatin Sodium 40 mg 10/23/24 09:00 10/23/24 11:37 Pravastatin Sodium 20 Mg Tablet PO 40 mg DAILY FLORINDA Administration Radiology Results: ITS Impressions Venous Doppler Study 10/21/24 15:46 IMPRESSION: 1. No deep venous thrombosis in the right lower limb. Chest CT 10/23/24 20:15 IMPRESSION: Pretracheal lymphadenopathy, otherwise unremarkable intrathoracic findings. Moderate pneumoperitoneum concerning for interval bowel perforation. Results reported telephonically to Jessica Rocha RN by Dr. Sales at 8:23 PM on 10/23/2024. Abdomen/Pelvis CT 10/23/24 21:37 IMPRESSION: Moderate pneumoperitoneum concerning for large bowel perforation. A definite bowel wall defect is not identified. Candidate location at the hepatic flexure based on the presence of a slightly increased amount of pericolonic mesenteric gas bubbles. Persistent stricture of the transverse colon with slight interval decompression of the dilated proximal large bowel. 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 Labs Labs: Laboratory Results - last 24 hr 10/24/24 10/24/24 10/24/24 06:00 06:01 09:57 WBC 10.7 H RBC 3.99 L Hgb 11.4 L Hct 34.7 L MCV 87.0 MCH 28.6 MCHC 32.9 RDW 13.0 Plt Count 271 MPV 9.9 Immature Gran % (Auto) 0.4 Neut % (Auto) 72.8 Lymph % (Auto) 18.0 L [place] % (Auto) 7.6 Eos % (Auto) 0.9 Baso % (Auto) 0.3 Lymph # (Auto) 1.93 [place] # (Auto) 0.8 H Eos # (Auto) 0.1 Baso # (Auto) 0.0 Abs Immat Gran (auto) 0.04 H Absolute Neuts (auto) 7.8 H Absolute Nucleated RBC 0.000 Nucleated RBC % 0.0 PT 14.8 H INR 1.1 APTT 29.4 Sodium 135 L Potassium 3.0 L Chloride 98 Carbon Dioxide 27 Anion Gap 10 BUN 6 L Creatinine 0.47 L Estim Creat Clear Calc 95 Estimated GFR > 60 Glucose 120 H POC Capillary Glucose Calcium 8.6 Magnesium 2.1 Transferrin 184 L Total Bilirubin 0.9 AST 17 ALT 14 Alkaline Phosphatase 70 Total Protein 6.0 L Albumin 3.2 L 10/24/24 12:02 WBC RBC Hgb Hct MCV MCH MCHC RDW Plt Count MPV Immature Gran % (Auto) Neut % (Auto) Lymph % (Auto) [place] % (Auto) Eos % (Auto) Baso % (Auto) Lymph # (Auto) [place] # (Auto) Eos # (Auto) Baso # (Auto) Abs Immat Gran (auto) Absolute Neuts (auto) Absolute Nucleated RBC Nucleated RBC % PT INR APTT Sodium Potassium Chloride Carbon Dioxide Anion Gap BUN Creatinine Estim Creat Clear Calc Estimated GFR Glucose POC Capillary Glucose 129 H Calcium Magnesium Transferrin Total Bilirubin AST ALT Alkaline Phosphatase Total Protein Albumin
--- NOTE | 2024-10-24 17:53 | WPDPN ---
Progress Note: A&P Assessment and Plan (1) Mass of colon: Code(s): K63.89 - Other specified diseases of intestine Status: Acute Assessment and Plan: Mass at the hepatic flexure and proximal transverse colon is likely a colon cancer. On colonoscopic evaluation it appears to be malignant. Pathology on the biopsy results are pending at this time. CT scan abdomen pelvis shows some mild aortocaval lymphadenopathy and there is suggestion of omental and peritoneal involvement was studding. This most likely represents stage for colon cancer. An attempt at performing ultrasound-guided biopsy of the omentum was canceled today due to the free air in the abdomen which precluded being able to image the omentum well. I did discuss with the patient proceeding with a diverting loop ileostomy hopefully to be done laparoscopically so that she is able to eat solid food and start chemotherapy soon. If she responds well to the chemotherapy then further surgical management with resection of the tumor and takedown of the ileostomy and possible HIPEC procedure in [place] by Surgical Oncology could be an option. She is agreeable to this plan. We will schedule her for laparoscopic placement of a diverting loop ileostomy with placement of a ana catheter on Sunday. Due to the high grade stricture and near total obstruction from the mass she has not been eating well and has been only been able to take liquids since she has been admitted. Her albumin was 3.6 yesterday. We will go ahead and have a PICC line placed and started on TPN as it is expected that she will continue to be without significant nutrition if she does not get TPN for several more days. Subjective Date/time seen: 10/24/24 17:53 Interval history: Patient remains clinically stable. Was seen by Oncology yesterday and CT chest was ordered to complete radiographic workup. On that scan free air under the diaphragm was seen. I was then followed up with a CT of the abdomen pelvis last night which confirmed free air in the abdomen but the patient's clinical exam of her abdomen was stable without evidence of an acute surgical abdomen. She has done well with non operative management overnight. More than likely she probably had a small perforation of the colon at the site of biopsy during the colonoscopy which has sealed. She is having some loose bowel movements. Exam GI: Other: Abdomen is minimally distended. It is minimally diffusely tender. No guarding or generalized peritoneal signs. Objective Data Vital Signs Vital Signs: Vital Signs - 24 hr 10/23/24 20:00 10/23/24 20:00 10/23/24 20:36 Temperature 37.5 C Pulse Rate 95 87 Respiratory Rate 18 Blood Pressure 126/50 L Pulse Oximetry 96 Oxygen Delivery Room Air 10/24/24 00:00 10/24/24 00:07 10/24/24 04:00 Temperature Pulse Rate 94 93 86 Respiratory Rate 16 Blood Pressure 123/67 Pulse Oximetry 93 Oxygen Delivery 10/24/24 04:17 10/24/24 05:54 10/24/24 14:00 Temperature 36.6 C 36.6 C Pulse Rate 89 94 90 Respiratory Rate 20 18 Blood Pressure 108/67 110/76 Pulse Oximetry 93 96 Oxygen Delivery Intake/Output Intake/Output: Intake & Output 10/21/24 10/22/24 10/23/24 10/24/24 23:59 23:59 23:59 23:59 Intake Total 2550 670 2864 650 Balance 2550 670 2864 650 Meds/Results Medications: Active Medications Generic Name Dose Route Start Last Admin Trade Name Freq PRN Reason Stop Dose Admin Acetaminophen 650 mg 10/23/24 11:03 Acetaminophen 325 Mg Tablet PO Q4H PRN Mild Pain (1-3) or Fever Amlodipine Besylate 5 mg 10/23/24 09:00 10/24/24 09:00 Amlodipine Besylate 5 Mg Tablet PO Not Given DAILY FLORINDA Benzocaine 1 lozenge 10/23/24 18:37 Benzocaine/Menthol (*Bkc) 18 Ea Lozenge PO PRN PRN Sore Throat Ezetimibe 10 mg 10/23/24 09:00 10/24/24 09:00 Ezetimibe 10 Mg Tablet PO Not Given DAILY FLORINDA Hydrochlorothiazide 12.5 mg 10/23/24 09:00 10/24/24 09:00 Hydrochlorothiazide 12.5 Mg Capsule PO Not Given QAM FLORINDA Piperacillin/Tazobactam/Dextrose 3.375 gm in 50 mls @ 100 mls/hr 10/22/24 06:00 10/24/24 11:28 Zosyn 3.375 Gm/Ns 50 Ml IVPB 100 mls/hr Q6H FLORINDA Administration Dextrose 1,000 mls @ 50 mls/hr 10/24/24 09:09 Dextrose 10% IV CONT .Q20H PRN if PN is interrupted Losartan Potassium 100 mg 10/23/24 09:00 10/24/24 09:00 Losartan Potassium 100 Mg Tablet PO Not Given DAILY [facility] Metoprolol Succinate 50 mg 10/24/24 06:00 10/24/24 05:54 Metoprolol Succinate Ext Rel 50 Mg Tabcr PO 50 mg Q12H FLORINDA Administration Morphine Sulfate 2 mg 10/23/24 11:03 10/23/24 11:35 Morphine Sulfate (*Crx) 2 Mg/Ml Inj IV PUSH 2 mg Q2H PRN Administration Pain Rated 7-10 Ondansetron HCl 4 mg 10/22/24 16:46 Ondansetron Inj 4 Mg/2 Ml Vial IV PUSH Q6H PRN Nausea And Vomiting Oxycodone HCl 2.5 mg 10/23/24 09:37 Oxycodone Hcl (*Crx) 2.5 Mg Tab Ir PO Q6H PRN Pain Rated 7-10 Oxycodone/Acetaminophen 1 tablet 10/23/24 09:36 Oxycodone/Acetaminophen (*Crx) 5-325 Mg Tablet PO Q6H PRN Pain Rated 7-10 Potassium Chloride 10 meq 10/23/24 09:00 10/24/24 09:00 Potassium Chloride 10 Meq Er Tablet PO Not Given DAILY [facility] Pravastatin Sodium 40 mg 10/23/24 09:00 10/24/24 09:00 Pravastatin Sodium 20 Mg Tablet PO Not Given DAILY [facility] Radiology Results: ITS Impressions Venous Doppler Study 10/21/24 15:46 IMPRESSION: 1. No deep venous thrombosis in the right lower limb. Chest CT 10/23/24 20:15 IMPRESSION: Pretracheal lymphadenopathy, otherwise unremarkable intrathoracic findings. Moderate pneumoperitoneum concerning for interval bowel perforation. Results reported telephonically to Jessica Rocha RN by Dr. Sales at 8:23 PM on 10/23/2024. Abdomen/Pelvis CT 10/23/24 21:37 IMPRESSION: Moderate pneumoperitoneum concerning for large bowel perforation. A definite bowel wall defect is not identified. Candidate location at the hepatic flexure based on the presence of a slightly increased amount of pericolonic mesenteric gas bubbles. Persistent stricture of the transverse colon with slight interval decompression of the dilated proximal large bowel. 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 Abdomen Ultrasound 10/24/24 17:08 IMPRESSION: Aborted omental biopsy secondary to free air within the abdomen, precluding adequate visualization. Labs Labs: Laboratory Results - last 24 hr 10/24/24 10/24/24 10/24/24 06:00 06:01 09:57 WBC 10.7 H RBC 3.99 L Hgb 11.4 L Hct 34.7 L MCV 87.0 MCH 28.6 MCHC 32.9 RDW 13.0 Plt Count 271 MPV 9.9 Immature Gran % (Auto) 0.4 Neut % (Auto) 72.8 Lymph % (Auto) 18.0 L [place] % (Auto) 7.6 Eos % (Auto) 0.9 Baso % (Auto) 0.3 Lymph # (Auto) 1.93 [place] # (Auto) 0.8 H Eos # (Auto) 0.1 Baso # (Auto) 0.0 Abs Immat Gran (auto) 0.04 H Absolute Neuts (auto) 7.8 H Absolute Nucleated RBC 0.000 Nucleated RBC % 0.0 PT 14.8 H INR 1.1 APTT 29.4 Sodium 135 L Potassium 3.0 L Chloride 98 Carbon Dioxide 27 Anion Gap 10 BUN 6 L Creatinine 0.47 L Estim Creat Clear Calc 95 Estimated GFR > 60 Glucose 120 H POC Capillary Glucose Calcium 8.6 Magnesium 2.1 Transferrin 184 L Total Bilirubin 0.9 AST 17 ALT 14 Alkaline Phosphatase 70 Total Protein 6.0 L Albumin 3.2 L 10/24/24 12:02 WBC RBC Hgb Hct MCV MCH MCHC RDW Plt Count MPV Immature Gran % (Auto) Neut % (Auto) Lymph % (Auto) [place] % (Auto) Eos % (Auto) Baso % (Auto) Lymph # (Auto) [place] # (Auto) Eos # (Auto) Baso # (Auto) Abs Immat Gran (auto) Absolute Neuts (auto) Absolute Nucleated RBC Nucleated RBC % PT INR APTT Sodium Potassium Chloride Carbon Dioxide Anion Gap BUN Creatinine Estim Creat Clear Calc Estimated GFR Glucose POC Capillary Glucose 129 H Calcium Magnesium Transferrin Total Bilirubin AST ALT Alkaline Phosphatase Total Protein Albumin
[2024-10-24 18:12] LABS: Glucose Point of Care 134 mg/dl (65-105)
[2024-10-24] MEDS: POTASSIUM CHLORIDE INJ 40 MEQ in SODIUM CHLORIDE 0.9% IV 500 ML 130 MEQ IVPB (20:17)
[2024-10-24 23:32] LABS: Glucose Point of Care 108 mg/dl (65-105)
[2024-10-25] VITALS (11 sets, daily range): BP systolic 144–152; BP diastolic 74–84; PULSE 42–103; RESP 16–18; TEMP 36.3; O2SAT 94–97
[2024-10-25] MEDS: PIPERACILLN/TAZ 3.375GM/NS50ML 3.375 GM/50 ML BAG IVPB ×3 (00:14→12:55)
[2024-10-25] MEDS: HEPARIN SODIUM 5,000 UNITS/ML VIAL 5000 UNITS SUB-Q ×2 (00:15→20:31)
[2024-10-25] MEDS: METOPROLOL SUCCINATE EXT REL 50 MG TABCR PO ×2 (05:28→16:59)
[2024-10-25 06:35] LABS: Basophils Percent Auto 0.2 % (0.2-1.2); Eosinophils Absolute Auto 0.1 K/mm3 (0-0.3); Eosinophils Percent Auto 1.3 % (0-4.4); Hematocrit 29.7 % (37.0-47.0); Hemoglobin 9.6 g/dL (12.0-15.0); Immature Granulocyte Absolute 0.04 K/mm3 (0.00-0.031); Immature Granulocyte Percent A 0.4 % (0-0.5); Lymphocytes Absolute Auto 1.33 K/mm3 (0.9-3.2); Lymphocytes Percent Auto 12.6 % (18.3-44.2); Mean Corpuscular HGB Conc 32.3 g/dl (32-36); Mean Corpuscular Hemoglobin 28.1 pg (26-34); Mean Corpuscular Volume 86.8 fl (80-100); Mean Platelet Volume 9.6 fl (7.4-10.4); Monocytes Absolute Auto 0.7 K/mm3 (0.1-0.6); Monocytes Percent Auto 6.6 % (2.6-8.5); Neutrophils Absolute Auto 8.3 K/mm3 (1.3-6.7); Neutrophils Percent Auto 78.9 % (45.5-73.1); Platelet Count Result 270 k/mm3 (150-375); Red Blood Count 3.42 M/mm3 (4.2-5.4); Red Cell Distribution Width 12.9 % (11.5-14.5); White Blood Count 10.6 K/mm3 (4.5-10.0)
[2024-10-25 06:48] LABS: Triglycerides 95 mg/dL (<150)
[2024-10-25 06:53] LABS: Alanine Aminotransferase 9 U/L (6-35); Albumin Level 2.9 g/dL (3.5-5.1); Alkaline Phosphatase 65 U/L (38-126); Anion Gap 20 mmol/L (4-12); Aspartate Amino Transferase 16 U/L (14-36); Bilirubin,Total 0.9 mg/dL (0.2-1.3); Blood Urea Nitrogen 8 mg/dL (7-17); Calcium 7.4 mg/dL (8.4-10.2); Carbon Dioxide 24 mmol/L (22-30); Chloride 103 mmol/L (98-107); Estimated CRCL calculation 105 ml/min; Estimated Glomerular Filt Rate > 60; Glucose 104 mg/dL (65-110); Phosphorus 2.4 mg/dL (2.5-4.5); Potassium 2.5 mmol/L (3.4-5.0); Sodium 147 mmol/L (137-145)
[2024-10-25] MEDS: LIDOCAINE 1% PF INJ 5 ML VIAL INFILTRATE (07:30)
[2024-10-25] MEDS: POTASSIUM CHLORIDE 20 MEQ PACKET (FOR LIQUID) 40 MEQ PO (08:26)
[2024-10-25] MEDS: POTASSIUM/PHOSPHORUS/SODIUM 1.5 GM PACKET 1 PACKET PO (08:26)
[2024-10-25] MEDS: LOSARTAN POTASSIUM 100 MG TABLET PO (08:29)
[2024-10-25] MEDS: PRAVASTATIN SODIUM 20 MG TABLET 40 MG PO (08:29)
[2024-10-25] MEDS: hydroCHLOROthiazide 12.5 MG CAPSULE PO (08:29)
[2024-10-25] MEDS: amLODIPine BESYLATE 5 MG TABLET PO (08:30)
[2024-10-25] MEDS: EZETIMIBE 10 MG TABLET PO (08:30)
[2024-10-25] MEDS: KCL 40 MEQ/WATER 100 ML 100 ML 25 ML IVPB (08:32)
--- NOTE | 2024-10-25 10:49 | P.PNIM_ITS ---
Progress Note: A&P Assessment and Plan (1) Bowel obstruction: Code(s): K56.609 - Unspecified intestinal obstruction, unspecified as to partial versus complete obstruction Status: Acute Assessment and Plan: * Admit to regular medical floor * GI consulted * WBC improved from 14.3> 10.2>9.4>10.7>10.6. * Carcinoembryronic Antigen 0.7. * Colonoscopy done 10/23/24 showed: a few diverticula were present in the sigmoid colon. The diverticula were not actively bleeding. A partially-obstructing, large-size friable, infiltrative, malignant appearing, circumferential mass was observed in the transverse colon, size about 3-4 cm, noted small lumen probably 7-8 mm diameter and unable to traverse with scope and reach cecum (original plan was to perform a full colonoscopy). Multiple biopsies were taken. A few small-size internal hemorrhoids were seen in the rectum. The hemorrhoids were not actively bleeding. * Endoscopic diagnosis: Diverticulosis without perforation or abscess without bleeding (K57.30), Malignant appearing colonic mass at transverse colon (C18.4), and Internal hemorrhoids (K64.8). * Surgery following. * Dr. Otero today wrote in plan: Patient has a malignant-appearing stricture mass effect in proximal transverse and hepatic flexure of the colon. Biopsies were obtained and colonoscopy and sent to pathology. It will be least 3 days we get a pathology result back. However by imaging as well as laparoscopic description and evidence of mild aortocaval lymphadenopathy this appears to be consistent with a colon cancer. There is some thickened omentum in the right upper quadrant up against the abdominal wall which may represent omentum. After reviewing the CT scan with the radiologist she feels that this can be biopsied with ultrasound guidance. I have ordered this to be done for tomorro w in Radiology. If this shows advanced disease with at least omental metastasis in the patient may be a candidate for resection and HIPEC. Will discuss with Surgical Oncology surgeons [place] and refer if appropriate. For now stay on clear liquids. Albumin is 3.8 so would not start on TPN just yet. * US biopsy of abdomen retroperitonea done on 10/24/24. Patient reports that plan is for surgery on Sunday. (2) Abdominal pain: Code(s): R10.9 - Unspecified abdominal pain Status: Acute Assessment and Plan: * Likely secondary to partial obstruction * Supportive care (3) Nausea and vomiting in adult: Code(s): R11.2 - Nausea with vomiting, unspecified Status: Acute Assessment and Plan: * Ondansetron 4 mg ivp q 6 PRN. (4) Stricture intestinal: Code(s): K56.699 - Other intestinal obstruction unspecified as to partial versus complete obstruction Status: Acute Assessment and Plan: * Suspicious for malignancy (5) Hypokalemia: Code(s): E87.6 - Hypokalemia Status: Acute Assessment and Plan: * Potassium 2.5. * Potasium Chloride 40 meq IVPB x1 and Potassium 40 meq PO x1 given. * Repeat potassium 4.0. * Increase Potassium 20 meq PO daily. * Monitor labs. Subjective Date/time seen: 10/25/24 10:49 Interval history: Patient sitting up in chair. Patient denies pain, shortness of breath, headache, dizziness, nausea, or vomiting. Patient reports that her gas pressure has went away. Review of Systems Review of Systems: All systems reviewed & are unremarkable except as noted in HPI and below Exam Const: General: comfortable and no acute distress Eyes: Sclera: sclerae normal Resp: Effort & Inspection: normal respiratory effort Auscultation: clear to auscultation bilaterally Cardio: Rate: regular rate Rhythm: regular rhythm GI: GI Palp: Yes Soft to palpation Auscultation: normal bowel sounds Neuro: Speech: normal speech Extrem: General: pedal edema bilaterally (trace) Psych: Mental Status: mental status grossly normal Affect: normal affect Objective Data Vital Signs Vital Signs: Vital Signs - 24 hr 10/24/24 12:00 10/24/24 14:00 10/24/24 16:00 Temperature 97.9 F Pulse Rate 86 90 90 Respiratory Rate 18 Blood Pressure 110/76 Pulse Oximetry 96 Oxygen Delivery 10/24/24 20:00 10/24/24 20:00 10/24/24 20:17 Temperature Pulse Rate 98 87 Respiratory Rate Blood Pressure Pulse Oximetry Oxygen Delivery Room Air 10/24/24 21:41 10/25/24 00:00 10/25/24 04:00 Temperature 97.7 F Pulse Rate 88 103 H 100 Respiratory Rate 20 Blood Pressure 134/73 Pulse Oximetry 92 Oxygen Delivery 10/25/24 05:28 10/25/24 05:38 Temperature 97.3 F L Pulse Rate 100 98 Respiratory Rate 16 Blood Pressure 144/74 H Pulse Oximetry 97 Oxygen Delivery Intake/Output Intake/Output: Intake & Output 10/22/24 10/23/24 10/24/24 10/25/24 23:59 23:59 23:59 23:59 Intake Total 670 2864 820 400 Balance 670 2864 820 400 Meds/Results Medications: Active Medications Generic Name Dose Route Start Last Admin Trade Name Freq PRN Reason Stop Dose Admin Acetaminophen 650 mg 10/23/24 11:03 Acetaminophen 325 Mg Tablet PO Q4H PRN Mild Pain (1-3) or Fever Amlodipine Besylate 5 mg 10/23/24 09:00 10/25/24 08:30 Amlodipine Besylate 5 Mg Tablet PO 5 mg DAILY FLORINDA Administration Benzocaine 1 lozenge 10/23/24 18:37 Benzocaine/Menthol (*Bkc) 18 Ea Lozenge PO PRN PRN Sore Throat Ezetimibe 10 mg 10/23/24 09:00 10/25/24 08:30 Ezetimibe 10 Mg Tablet PO 10 mg DAILY FLORINDA Administration Heparin Sodium (Porcine) 5,000 units 10/24/24 21:00 10/25/24 08:29 Heparin Sodium 5,000 Units/Ml Vial SUB-Q Not Given Q12HR FLORINDA Hydrochlorothiazide 12.5 mg 10/23/24 09:00 10/25/24 08:29 Hydrochlorothiazide 12.5 Mg Capsule PO 12.5 mg QAM FLORINDA Administration Piperacillin/Tazobactam/Dextrose 3.375 gm in 50 mls @ 100 mls/hr 10/22/24 06:00 10/25/24 05:58 Zosyn 3.375 Gm/Ns 50 Ml IVPB Infused Q6H FLORINDA Infusion Dextrose 1,000 mls @ 50 mls/hr 10/24/24 09:09 Dextrose 10% IV CONT .Q20H PRN if PN is interrupted Multivitamins 1.25 ml/ 1,002.5 mls @ 40 mls/hr 10/24/24 20:00 10/24/24 22:05 Multivitamins 1.25 ml/ Amino IV CONT Not Given Acids/Electrolytes/Dextrose .Q24H [facility] Protocol Fat Emulsion Intravenous 250 mls @ 20.833 mls/hr 10/24/24 20:00 10/24/24 22:05 Lipids 20% IVPB Not Given Q24H [facility] Potassium Chloride 100 mls @ 25 mls/hr 10/25/24 07:06 10/25/24 08:32 Kcl 40 Meq/Water 100 Ml IVPB 10/25/24 11:05 25 mls/hr ONCE ONE Administration Losartan Potassium 100 mg 10/23/24 09:00 10/25/24 08:29 Losartan Potassium 100 Mg Tablet PO 100 mg DAILY FLORINDA Administration Metoprolol Succinate 50 mg 10/24/24 06:00 10/25/24 05:28 Metoprolol Succinate Ext Rel 50 Mg Tabcr PO 50 mg Q12H FLORINDA Administration Morphine Sulfate 2 mg 10/23/24 11:03 10/23/24 11:35 Morphine Sulfate (*Crx) 2 Mg/Ml Inj IV PUSH 2 mg Q2H PRN Administration Pain Rated 7-10 Ondansetron HCl 4 mg 10/22/24 16:46 Ondansetron Inj 4 Mg/2 Ml Vial IV PUSH Q6H PRN Nausea And Vomiting Oxycodone HCl 2.5 mg 10/23/24 09:37 Oxycodone Hcl (*Crx) 2.5 Mg Tab Ir PO Q6H PRN Pain Rated 7-10 Oxycodone/Acetaminophen 1 tablet 10/23/24 09:36 Oxycodone/Acetaminophen (*Crx) 5-325 Mg Tablet PO Q6H PRN Pain Rated 7-10 Pravastatin Sodium 40 mg 10/23/24 09:00 10/25/24 08:29 Pravastatin Sodium 20 Mg Tablet PO 40 mg DAILY [facility] Administration Sodium Chloride 10 ml 10/25/24 14:00 Central Line Flush IV PUSH Q8HR FLORINDA Sodium Chloride 10 ml 10/25/24 08:24 Central Line Flush IV PUSH PRN PRN with TPN bag changes Sodium Chloride 20 ml 10/25/24 08:24 Central Line Flush IV PUSH PRN PRN after blood draws Radiology Results: ITS Impressions Venous Doppler Study 10/21/24 15:46 IMPRESSION: 1. No deep venous thrombosis in the right lower limb. Chest CT 10/23/24 20:15 IMPRESSION: Pretracheal lymphadenopathy, otherwise unremarkable intrathoracic findings. Moderate pneumoperitoneum concerning for interval bowel perforation. Results reported telephonically to Jessica Rocha RN by Dr. Sales at 8:23 PM on 10/23/2024. Abdomen/Pelvis CT 10/23/24 21:37 IMPRESSION: Moderate pneumoperitoneum concerning for large bowel perforation. A definite bowel wall defect is not identified. Candidate location at the hepatic flexure based on the presence of a slightly increased amount of pericolonic mesenteric gas bubbles. Persistent stricture of the transverse colon with slight interval decompression of the dilated proximal large bowel. 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 Abdomen Ultrasound 10/24/24 17:08 IMPRESSION: Aborted omental biopsy secondary to free air within the abdomen, precluding adequate visualization. Labs Labs: Laboratory Results - last 24 hr 10/24/24 10/24/24 10/24/24 12:02 18:06 23:28 WBC RBC Hgb Hct MCV MCH MCHC RDW Plt Count MPV Immature Gran % (Auto) Neut % (Auto) Lymph % (Auto) [place] % (Auto) Eos % (Auto) Baso % (Auto) Lymph # (Auto) [place] # (Auto) Eos # (Auto) Baso # (Auto) Abs Immat Gran (auto) Absolute Neuts (auto) Absolute Nucleated RBC Nucleated RBC % Sodium Potassium Chloride Carbon Dioxide Anion Gap BUN Creatinine Estim Creat Clear Calc Estimated GFR Glucose POC Capillary Glucose 129 H 134 H 108 H Calcium Phosphorus Total Bilirubin AST ALT Alkaline Phosphatase Total Protein Albumin Triglycerides 10/25/24 05:53 WBC 10.6 H RBC 3.42 L Hgb 9.6 L Hct 29.7 L MCV 86.8 MCH 28.1 MCHC 32.3 RDW 12.9 Plt Count 270 MPV 9.6 Immature Gran % (Auto) 0.4 Neut % (Auto) 78.9 H Lymph % (Auto) 12.6 L [place] % (Auto) 6.6 Eos % (Auto) 1.3 Baso % (Auto) 0.2 Lymph # (Auto) 1.33 [place] # (Auto) 0.7 H Eos # (Auto) 0.1 Baso # (Auto) 0.0 Abs Immat Gran (auto) 0.04 H Absolute Neuts (auto) 8.3 H Absolute Nucleated RBC 0.000 Nucleated RBC % 0.0 Sodium 147 H Potassium 2.5 L* Chloride 103 Carbon Dioxide 24 Anion Gap 20 H BUN 8 Creatinine 0.42 L Estim Creat Clear Calc 105 Estimated GFR > 60 Glucose 104 POC Capillary Glucose Calcium 7.4 L Phosphorus 2.4 L Total Bilirubin 0.9 AST 16 ALT 9 Alkaline Phosphatase 65 Total Protein 6.0 L Albumin 2.9 L Triglycerides 95 Quality VTE Prophylaxis VTE prophylaxis: mechanical ordered
--- NOTE | 2024-10-25 11:10 | P.PNGS_ITS ---
Progress Note: A&P Assessment and Plan (1) Mass of colon: Code(s): K63.89 - Other specified diseases of intestine Status: Acute Assessment and Plan: await path, exam largely benign, will start TPN, plan for loop ileostomy and port on Sunday Subjective Subjective Date/Time Seen: 10/25/24 11:11 Interval history: no acute issues, PICC placed Review of Systems Review of Systems: All systems reviewed & are unremarkable except as noted in HPI and below Exam Const: General: cooperative, comfortable, no acute distress and ill appearing Resp: Auscultation: clear to auscultation bilaterally Cardio: Rate: regular rate Rhythm: regular rhythm GI: Inspection: normal to inspection and distended GI Palp: Yes abdominal tenderness, Yes Soft to palpation, No Guarding due to palpation present (GI) and No Rigid due to palpation Objective Data Vital Signs Vital Signs: Vital Signs - 24 hr 10/24/24 12:00 10/24/24 14:00 10/24/24 16:00 Temperature 36.6 C Pulse Rate 86 90 90 Respiratory Rate 18 Blood Pressure 110/76 Pulse Oximetry 96 Oxygen Delivery 10/24/24 20:00 10/24/24 20:00 10/24/24 20:17 Temperature Pulse Rate 98 87 Respiratory Rate Blood Pressure Pulse Oximetry Oxygen Delivery Room Air 10/24/24 21:41 10/25/24 00:00 10/25/24 04:00 Temperature 36.5 C Pulse Rate 88 103 H 100 Respiratory Rate 20 Blood Pressure 134/73 Pulse Oximetry 92 Oxygen Delivery 10/25/24 05:28 10/25/24 05:38 Temperature 36.3 C L Pulse Rate 100 98 Respiratory Rate 16 Blood Pressure 144/74 H Pulse Oximetry 97 Oxygen Delivery Intake/Output Intake/Output: Intake & Output 10/22/24 10/23/24 10/24/24 10/25/24 23:59 23:59 23:59 23:59 Intake Total 670 2864 820 400 Balance 670 2864 820 400 Meds/Results Medications: Active Medications Generic Name Dose Route Start Last Admin Trade Name Freq PRN Reason Stop Dose Admin Acetaminophen 650 mg 10/23/24 11:03 Acetaminophen 325 Mg Tablet PO Q4H PRN Mild Pain (1-3) or Fever Amlodipine Besylate 5 mg 10/23/24 09:00 10/25/24 08:30 Amlodipine Besylate 5 Mg Tablet PO 5 mg DAILY FLORINDA Administration Benzocaine 1 lozenge 10/23/24 18:37 Benzocaine/Menthol (*Bkc) 18 Ea Lozenge PO PRN PRN Sore Throat Ezetimibe 10 mg 10/23/24 09:00 10/25/24 08:30 Ezetimibe 10 Mg Tablet PO 10 mg DAILY FLORINDA Administration Heparin Sodium (Porcine) 5,000 units 10/24/24 21:00 10/25/24 08:29 Heparin Sodium 5,000 Units/Ml Vial SUB-Q Not Given Q12HR [facility] Hydrochlorothiazide 12.5 mg 10/23/24 09:00 10/25/24 08:29 Hydrochlorothiazide 12.5 Mg Capsule PO 12.5 mg QAM [facility] Administration Piperacillin/Tazobactam/Dextrose 3.375 gm in 50 mls @ 100 mls/hr 10/22/24 06:00 10/25/24 05:58 Zosyn 3.375 Gm/Ns 50 Ml IVPB Infused Q6H [facility] Infusion Dextrose 1,000 mls @ 50 mls/hr 10/24/24 09:09 Dextrose 10% IV CONT .Q20H PRN if PN is interrupted Multivitamins 1.25 ml/ 1,002.5 mls @ 40 mls/hr 10/24/24 20:00 10/24/24 22:05 Multivitamins 1.25 ml/ Amino IV CONT Not Given Acids/Electrolytes/Dextrose .Q24H [facility] Protocol Fat Emulsion Intravenous 250 mls @ 20.833 mls/hr 10/24/24 20:00 10/24/24 22:05 Lipids 20% IVPB Not Given Q24H [facility] Losartan Potassium 100 mg 10/23/24 09:00 10/25/24 08:29 Losartan Potassium 100 Mg Tablet PO 100 mg DAILY FLORINDA Administration Metoprolol Succinate 50 mg 10/24/24 06:00 10/25/24 05:28 Metoprolol Succinate Ext Rel 50 Mg Tabcr PO 50 mg Q12H FLORINDA Administration Morphine Sulfate 2 mg 10/23/24 11:03 10/23/24 11:35 Morphine Sulfate (*Crx) 2 Mg/Ml Inj IV PUSH 2 mg Q2H PRN Administration Pain Rated 7-10 Ondansetron HCl 4 mg 10/22/24 16:46 Ondansetron Inj 4 Mg/2 Ml Vial IV PUSH Q6H PRN Nausea And Vomiting Oxycodone HCl 2.5 mg 10/23/24 09:37 Oxycodone Hcl (*Crx) 2.5 Mg Tab Ir PO Q6H PRN Pain Rated 7-10 Oxycodone/Acetaminophen 1 tablet 10/23/24 09:36 Oxycodone/Acetaminophen (*Crx) 5-325 Mg Tablet PO Q6H PRN Pain Rated 7-10 Pravastatin Sodium 40 mg 10/23/24 09:00 10/25/24 08:29 Pravastatin Sodium 20 Mg Tablet PO 40 mg DAILY FLORINDA Administration Sodium Chloride 10 ml 10/25/24 14:00 Central Line Flush IV PUSH Q8HR FLORINDA Sodium Chloride 10 ml 10/25/24 08:24 Central Line Flush IV PUSH PRN PRN with TPN bag changes Sodium Chloride 20 ml 10/25/24 08:24 Central Line Flush IV PUSH PRN PRN after blood draws Radiology Results: ITS Impressions Venous Doppler Study 10/21/24 15:46 IMPRESSION: 1. No deep venous thrombosis in the right lower limb. Chest CT 10/23/24 20:15 IMPRESSION: Pretracheal lymphadenopathy, otherwise unremarkable intrathoracic findings. Moderate pneumoperitoneum concerning for interval bowel perforation. Results reported telephonically to Jessica Rocha RN by Dr. Sales at 8:23 PM on 10/23/2024. Abdomen/Pelvis CT 10/23/24 21:37 IMPRESSION: Moderate pneumoperitoneum concerning for large bowel perforation. A definite bowel wall defect is not identified. Candidate location at the hepatic flexure based on the presence of a slightly increased amount of pericolonic mesenteric gas bubbles. Persistent stricture of the transverse colon with slight interval decompression of the dilated proximal large bowel. 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 Abdomen Ultrasound 10/24/24 17:08 IMPRESSION: Aborted omental biopsy secondary to free air within the abdomen, precluding adequate visualization. Labs Labs: Laboratory Results - last 24 hr 10/24/24 10/24/24 10/24/24 12:02 18:06 23:28 WBC RBC Hgb Hct MCV MCH MCHC RDW Plt Count MPV Immature Gran % (Auto) Neut % (Auto) Lymph % (Auto) [place] % (Auto) Eos % (Auto) Baso % (Auto) Lymph # (Auto) [place] # (Auto) Eos # (Auto) Baso # (Auto) Abs Immat Gran (auto) Absolute Neuts (auto) Absolute Nucleated RBC Nucleated RBC % Sodium Potassium Chloride Carbon Dioxide Anion Gap BUN Creatinine Estim Creat Clear Calc Estimated GFR Glucose POC Capillary Glucose 129 H 134 H 108 H Calcium Phosphorus Total Bilirubin AST ALT Alkaline Phosphatase Total Protein Albumin Triglycerides 10/25/24 05:53 WBC 10.6 H RBC 3.42 L Hgb 9.6 L Hct 29.7 L MCV 86.8 MCH 28.1 MCHC 32.3 RDW 12.9 Plt Count 270 MPV 9.6 Immature Gran % (Auto) 0.4 Neut % (Auto) 78.9 H Lymph % (Auto) 12.6 L [place] % (Auto) 6.6 Eos % (Auto) 1.3 Baso % (Auto) 0.2 Lymph # (Auto) 1.33 [place] # (Auto) 0.7 H Eos # (Auto) 0.1 Baso # (Auto) 0.0 Abs Immat Gran (auto) 0.04 H Absolute Neuts (auto) 8.3 H Absolute Nucleated RBC 0.000 Nucleated RBC % 0.0 Sodium 147 H Potassium 2.5 L* Chloride 103 Carbon Dioxide 24 Anion Gap 20 H BUN 8 Creatinine 0.42 L Estim Creat Clear Calc 105 Estimated GFR > 60 Glucose 104 POC Capillary Glucose Calcium 7.4 L Phosphorus 2.4 L Total Bilirubin 0.9 AST 16 ALT 9 Alkaline Phosphatase 65 Total Protein 6.0 L Albumin 2.9 L Triglycerides 95
[2024-10-25 12:48] LABS: Anion Gap 10 mmol/L (4-12); Blood Urea Nitrogen 9 mg/dL (7-17); Calcium 8.8 mg/dL (8.4-10.2); Carbon Dioxide 27 mmol/L (22-30); Chloride 99 mmol/L (98-107); Estimated CRCL calculation 105 ml/min; Estimated Glomerular Filt Rate > 60; Glucose 112 mg/dL (65-110); Sodium 136 mmol/L (137-145)
[2024-10-25] MEDS: CENTRAL LINE FLUSH 10 ML IV PUSH ×2 (14:20→21:00)
[2024-10-25] MEDS: AMINO ACIDS 5%/D15W/E-LYTES/CA 1,000 ML with MULTIVITAMINS-12 INJ VIAL 1 1.25 ML, MULTI... 40 ML IV CONT (14:21)
[2024-10-25] MEDS: FAT EMULSIONS IV 20% 250 ML 20.83 ML IVPB (14:21)
[2024-10-25 18:36] LABS: Glucose Point of Care 157 mg/dl (65-105)
[2024-10-25 23:45] LABS: Glucose Point of Care 148 mg/dl (65-105)
[2024-10-26] VITALS (10 sets, daily range): BP systolic 128–160; BP diastolic 67–82; PULSE 78–104; RESP 16–18; TEMP 36.3–36.5; O2SAT 94–99
[2024-10-26] MEDS: METOPROLOL SUCCINATE EXT REL 50 MG TABCR PO ×2 (05:47→17:06)
[2024-10-26 05:57] LABS: Glucose Point of Care 140 mg/dl (65-105)
[2024-10-26] MEDS: CENTRAL LINE FLUSH 10 ML IV PUSH ×3 (06:00→21:52)
[2024-10-26 06:04] LABS: Basophils Percent Auto 0.2 % (0.2-1.2); Eosinophils Absolute Auto 0.2 K/mm3 (0-0.3); Eosinophils Percent Auto 1.9 % (0-4.4); Hematocrit 33.6 % (37.0-47.0); Hemoglobin 11.1 g/dL (12.0-15.0); Immature Granulocyte Absolute 0.06 K/mm3 (0.00-0.031); Immature Granulocyte Percent A 0.5 % (0-0.5); Lymphocytes Absolute Auto 1.87 K/mm3 (0.9-3.2); Lymphocytes Percent Auto 14.6 % (18.3-44.2); Mean Corpuscular Hemoglobin 28.4 pg (26-34); Mean Corpuscular Volume 85.9 fl (80-100); Mean Platelet Volume 9.6 fl (7.4-10.4); Monocytes Percent Auto 7.4 % (2.6-8.5); Neutrophils Absolute Auto 9.6 K/mm3 (1.3-6.7); Neutrophils Percent Auto 75.4 % (45.5-73.1); Platelet Count Result 305 k/mm3 (150-375); Red Blood Count 3.91 M/mm3 (4.2-5.4); White Blood Count 12.8 K/mm3 (4.5-10.0)
[2024-10-26 06:27] LABS: Alanine Aminotransferase 15 U/L (6-35); Albumin Level 3.4 g/dL (3.5-5.1); Alkaline Phosphatase 80 U/L (38-126); Anion Gap 9 mmol/L (4-12); Aspartate Amino Transferase 24 U/L (14-36); Bilirubin,Total 0.7 mg/dL (0.2-1.3); Blood Urea Nitrogen 8 mg/dL (7-17); Calcium 8.6 mg/dL (8.4-10.2); Carbon Dioxide 27 mmol/L (22-30); Chloride 98 mmol/L (98-107); Estimated CRCL calculation 103 ml/min; Estimated Glomerular Filt Rate > 60; Glucose 125 mg/dL (65-110); Phosphorus 3.5 mg/dL (2.5-4.5); Potassium 3.2 mmol/L (3.4-5.0); Sodium 134 mmol/L (137-145)
[2024-10-26] MEDS: POTASSIUM CHLORIDE 20 MEQ ER TABLET 40 MEQ PO ×2 (08:53→15:37)
[2024-10-26] MEDS: LOSARTAN POTASSIUM 100 MG TABLET PO (08:54)
[2024-10-26] MEDS: hydroCHLOROthiazide 12.5 MG CAPSULE PO (08:55)
[2024-10-26] MEDS: amLODIPine BESYLATE 5 MG TABLET PO (08:55)
[2024-10-26] MEDS: PRAVASTATIN SODIUM 20 MG TABLET 40 MG PO (08:55)
[2024-10-26] MEDS: EZETIMIBE 10 MG TABLET PO (08:55)
--- NOTE | 2024-10-26 10:37 | P.PNIM_ITS ---
Progress Note: A&P Assessment and Plan (1) Bowel obstruction: Code(s): K56.609 - Unspecified intestinal obstruction, unspecified as to partial versus complete obstruction Status: Acute Assessment and Plan: * Admit to regular medical floor * GI consulted * WBC improved from 14.3> 10.2>9.4>10.7>10.6>12.8. * Carcinoembryronic Antigen 0.7. * Colonoscopy done 10/23/24 showed: a few diverticula were present in the sigmoid colon. The diverticula were not actively bleeding. A partially-obstructing, large-size friable, infiltrative, malignant appearing, circumferential mass was observed in the transverse colon, size about 3-4 cm, noted small lumen probably 7-8 mm diameter and unable to traverse with scope and reach cecum (original plan was to perform a full colonoscopy). Multiple biopsies were taken. A few small-size internal hemorrhoids were seen in the rectum. The hemorrhoids were not actively bleeding. * Endoscopic diagnosis: Diverticulosis without perforation or abscess without bleeding (K57.30), Malignant appearing colonic mass at transverse colon (C18.4), and Internal hemorrhoids (K64.8). * Surgery following. * Dr. Oetro today wrote in plan: Patient has a malignant-appearing stricture mass effect in proximal transverse and hepatic flexure of the colon. Biopsies were obtained and colonoscopy and sent to pathology. It will be least 3 days we get a pathology result back. However by imaging as well as laparoscopic description and evidence of mild aortocaval lymphadenopathy this appears to be consistent with a colon cancer. There is some thickened omentum in the right upper quadrant up against the abdominal wall which may represent omentum. After reviewing the CT scan with the radiologist she feels that this can be biopsied with ultrasound guidance. I have ordered this to be done for to amanda in Radiology. If this shows advanced disease with at least omental metastasis in the patient may be a candidate for resection and HIPEC. Will discuss with Surgical Oncology surgeons [place] and refer if appropriate. For now stay on clear liquids. Albumin is 3.8 so would not start on TPN just yet. * US biopsy of abdomen retroperitonea done on 10/24/24. Patient reports that plan is for surgery on Sunday. (2) Abdominal pain: Code(s): R10.9 - Unspecified abdominal pain Status: Acute Assessment and Plan: * Likely secondary to partial obstruction * Supportive care (3) Nausea and vomiting in adult: Code(s): R11.2 - Nausea with vomiting, unspecified Status: Acute Assessment and Plan: * Ondansetron 4 mg ivp q 6 PRN. (4) Stricture intestinal: Code(s): K56.699 - Other intestinal obstruction unspecified as to partial versus complete obstruction Status: Acute Assessment and Plan: * Suspicious for malignancy (5) Hypokalemia: Code(s): E87.6 - Hypokalemia Status: Acute Assessment and Plan: * Potassium 3.2. * Increased Potassium Chloride 40 meq PO daily. * Potassium 40 meq PO at 2:00. * Monitor labs. Subjective Date/time seen: 10/26/24 10:37 Interval history: Patient sitting up in chair. Patient denies pain, shortness of breath, headache, dizziness, nausea, or vomiting. NPO after for loop ileostomy and port tomorrow. Review of Systems Review of Systems: All systems reviewed & are unremarkable except as noted in HPI and below Exam Const: General: comfortable and no acute distress Eyes: Sclera: sclerae normal Resp: Effort & Inspection: normal respiratory effort Auscultation: clear to auscultation bilaterally Cardio: Rate: regular rate Rhythm: regular rhythm GI: GI Palp: Yes Soft to palpation Auscultation: normal bowel sounds Neuro: Speech: normal speech Extrem: General: pedal edema bilaterally (Trace) Psych: Mental Status: mental status grossly normal Affect: normal affect Objective Data Vital Signs Vital Signs: Vital Signs - 24 hr 10/25/24 12:00 10/25/24 14:00 10/25/24 16:00 Temperature 97.3 F L Pulse Rate 92 42 L 97 Respiratory Rate 18 Blood Pressure 152/84 H Pulse Oximetry 94 10/25/24 16:59 10/25/24 20:00 10/25/24 22:00 Temperature 97.4 F L Pulse Rate 91 93 98 Respiratory Rate 18 Blood Pressure 145/78 H Pulse Oximetry 94 10/26/24 00:00 10/26/24 04:00 10/26/24 05:02 Temperature 97.4 F L Pulse Rate 87 87 89 Respiratory Rate 16 Blood Pressure 148/82 H Pulse Oximetry 94 Intake/Output Intake/Output: Intake & Output 10/23/24 10/24/24 10/25/24 10/26/24 23:59 23:59 23:59 23:59 Intake Total 2864 820 750 900 Balance 2864 820 750 900 Meds/Results Medications: Active Medications Generic Name Dose Route Start Last Admin Trade Name Freq PRN Reason Stop Dose Admin Acetaminophen 650 mg 10/23/24 11:03 Acetaminophen 325 Mg Tablet PO Q4H PRN Mild Pain (1-3) or Fever Amlodipine Besylate 5 mg 10/23/24 09:00 10/26/24 08:55 Amlodipine Besylate 5 Mg Tablet PO 5 mg DAILY FLORINDA Administration Benzocaine 1 lozenge 10/23/24 18:37 Benzocaine/Menthol (*Bkc) 18 Ea Lozenge PO PRN PRN Sore Throat Ezetimibe 10 mg 10/23/24 09:00 10/26/24 08:55 Ezetimibe 10 Mg Tablet PO 10 mg DAILY FLORINDA Administration Heparin Sodium (Porcine) 5,000 units 10/24/24 21:00 10/26/24 08:51 Heparin Sodium 5,000 Units/Ml Vial SUB-Q Not Given Q12HR FLORIN[facility] Hydrochlorothiazide 12.5 mg 10/23/24 09:00 10/26/24 08:55 Hydrochlorothiazide 12.5 Mg Capsule PO 12.5 mg QAM FLORINDA Administration Dextrose 1,000 mls @ 50 mls/hr 10/24/24 09:09 Dextrose 10% IV CONT .Q20H PRN if PN is interrupted Multivitamins 1.25 ml/ 1,002.5 mls @ 40 mls/hr 10/25/24 14:00 10/25/24 14:21 Multivitamins 1.25 ml/ Amino IV CONT 40 mls/hr Acids/Electrolytes/Dextrose .Q24H FLORINDA Administration Protocol Fat Emulsion Intravenous 250 mls @ 20.833 mls/hr 10/25/24 14:00 10/25/24 14:21 Lipids 20% IVPB 20.83 mls/hr Q24H FLORINDA Administration Losartan Potassium 100 mg 10/23/24 09:00 10/26/24 08:54 Losartan Potassium 100 Mg Tablet PO 100 mg DAILY FLORINDA Administration Metoprolol Succinate 50 mg 10/24/24 06:00 10/26/24 05:47 Metoprolol Succinate Ext Rel 50 Mg Tabcr PO 50 mg Q12H FLORINDA Administration Morphine Sulfate 2 mg 10/23/24 11:03 10/23/24 11:35 Morphine Sulfate (*Crx) 2 Mg/Ml Inj IV PUSH 2 mg Q2H PRN Administration Pain Rated 7-10 Ondansetron HCl 4 mg 10/22/24 16:46 Ondansetron Inj 4 Mg/2 Ml Vial IV PUSH Q6H PRN Nausea And Vomiting Oxycodone HCl 2.5 mg 10/23/24 09:37 Oxycodone Hcl (*Crx) 2.5 Mg Tab Ir PO Q6H PRN Pain Rated 7-10 Oxycodone/Acetaminophen 1 tablet 10/23/24 09:36 Oxycodone/Acetaminophen (*Crx) 5-325 Mg Tablet PO Q6H PRN Pain Rated 7-10 Potassium Chloride 40 meq 10/26/24 09:00 10/26/24 08:53 Potassium Chloride 20 Meq Er Tablet PO 40 meq DAILY FLORINDA Administration Potassium Chloride 40 meq 10/26/24 14:00 Potassium Chloride 20 Meq Er Tablet PO 10/26/24 14:01 ONCE ONE Pravastatin Sodium 40 mg 10/23/24 09:00 10/26/24 08:55 Pravastatin Sodium 20 Mg Tablet PO 40 mg DAILY FLORINDA Administration Sodium Chloride 10 ml 10/25/24 14:00 10/26/24 06:00 Central Line Flush IV PUSH 10 ml Q8HR FLORINDA Administration Sodium Chloride 10 ml 10/25/24 08:24 Central Line Flush IV PUSH PRN PRN with TPN bag changes Sodium Chloride 20 ml 10/25/24 08:24 Central Line Flush IV PUSH PRN PRN after blood draws Radiology Results: ITS Impressions Venous Doppler Study 10/21/24 15:46 IMPRESSION: 1. No deep venous thrombosis in the right lower limb. Chest CT 10/23/24 20:15 IMPRESSION: Pretracheal lymphadenopathy, otherwise unremarkable intrathoracic findings. Moderate pneumoperitoneum concerning for interval bowel perforation. Results reported telephonically to Jessica Rocha RN by Dr. Sales at 8:23 PM on 10/23/2024. Abdomen/Pelvis CT 10/23/24 21:37 IMPRESSION: Moderate pneumoperitoneum concerning for large bowel perforation. A definite bowel wall defect is not identified. Candidate location at the hepatic flexure based on the presence of a slightly increased amount of pericolonic mesenteric gas bubbles. Persistent stricture of the transverse colon with slight interval decompression of the dilated proximal large bowel. 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 Abdomen Ultrasound 10/24/24 17:08 IMPRESSION: Aborted omental biopsy secondary to free air within the abdomen, precluding adequate visualization. Labs Labs: Laboratory Results - last 24 hr 10/25/24 10/25/24 10/25/24 12:32 18:33 23:32 WBC RBC Hgb Hct MCV MCH MCHC RDW Plt Count MPV Immature Gran % (Auto) Neut % (Auto) Lymph % (Auto) [place] % (Auto) Eos % (Auto) Baso % (Auto) Lymph # (Auto) [place] # (Auto) Eos # (Auto) Baso # (Auto) Abs Immat Gran (auto) Absolute Neuts (auto) Absolute Nucleated RBC Nucleated RBC % Sodium 136 L Potassium 4.0 Chloride 99 Carbon Dioxide 27 Anion Gap 10 BUN 9 Creatinine 0.42 L Estim Creat Clear Calc 105 Estimated GFR > 60 Glucose 112 H POC Capillary Glucose 157 H 148 H Calcium 8.8 Phosphorus Total Bilirubin AST ALT Alkaline Phosphatase Total Protein Albumin 10/26/24 10/26/24 05:42 05:45 WBC 12.8 H RBC 3.91 L Hgb 11.1 L Hct 33.6 L MCV 85.9 MCH 28.4 MCHC 33.0 RDW 13.0 Plt Count 305 MPV 9.6 Immature Gran % (Auto) 0.5 Neut % (Auto) 75.4 H Lymph % (Auto) 14.6 L [place] % (Auto) 7.4 Eos % (Auto) 1.9 Baso % (Auto) 0.2 Lymph # (Auto) 1.87 [place] # (Auto) 1.0 H Eos # (Auto) 0.2 Baso # (Auto) 0.0 Abs Immat Gran (auto) 0.06 H Absolute Neuts (auto) 9.6 H Absolute Nucleated RBC 0.000 Nucleated RBC % 0.0 Sodium 134 L Potassium 3.2 L Chloride 98 Carbon Dioxide 27 Anion Gap 9 BUN 8 Creatinine 0.43 L Estim Creat Clear Calc 103 Estimated GFR > 60 Glucose 125 H POC Capillary Glucose 140 H Calcium 8.6 Phosphorus 3.5 Total Bilirubin 0.7 AST 24 ALT 15 Alkaline Phosphatase 80 Total Protein 7.0 Albumin 3.4 L Quality VTE Prophylaxis VTE prophylaxis: mechanical ordered
[2024-10-26 11:49] LABS: Glucose Point of Care 171 mg/dl (65-105)
--- NOTE | 2024-10-26 12:26 | PM.PNGS ---
Progress Note: A&P Assessment and Plan (1) Mass of colon: Code(s): K63.89 - Other specified diseases of intestine Status: Acute Assessment and Plan: Continue TPN, clears, plan loop ileostomy and port tomorrow Subjective Subjective Date/Time Seen: 10/26/24 12:26 Interval history: no acute issues, started on TPN Review of Systems Review of Systems: All systems reviewed & are unremarkable except as noted in HPI and below Exam Const: General: cooperative, comfortable and no acute distress Resp: Auscultation: clear to auscultation bilaterally Cardio: Rate: regular rate Rhythm: regular rhythm GI: Inspection: normal to inspection and distended GI Palp: Yes abdominal tenderness, Yes Soft to palpation, No Guarding due to palpation present (GI) and No Rigid due to palpation Objective Data Vital Signs Vital Signs: Vital Signs - 24 hr 10/25/24 14:00 10/25/24 16:00 10/25/24 16:59 Temperature 36.3 C L Pulse Rate 42 L 97 91 Respiratory Rate 18 Blood Pressure 152/84 H Pulse Oximetry 94 10/25/24 20:00 10/25/24 22:00 10/26/24 00:00 Temperature 36.3 C L Pulse Rate 93 98 87 Respiratory Rate 18 Blood Pressure 145/78 H Pulse Oximetry 94 10/26/24 04:00 10/26/24 05:02 10/26/24 08:00 Temperature 36.3 C L Pulse Rate 87 89 103 H Respiratory Rate 16 Blood Pressure 148/82 H Pulse Oximetry 94 Intake/Output Intake/Output: Intake & Output 10/23/24 10/24/24 10/25/24 10/26/24 23:59 23:59 23:59 23:59 Intake Total 2864 820 750 900 Balance 2864 820 750 900 Meds/Results Medications: Active Medications Generic Name Dose Route Start Last Admin Trade Name Freq PRN Reason Stop Dose Admin Acetaminophen 650 mg 10/23/24 11:03 Acetaminophen 325 Mg Tablet PO Q4H PRN Mild Pain (1-3) or Fever Amlodipine Besylate 5 mg 10/23/24 09:00 10/26/24 08:55 Amlodipine Besylate 5 Mg Tablet PO 5 mg DAILY FLORINDA Administration Benzocaine 1 lozenge 10/23/24 18:37 Benzocaine/Menthol (*Bkc) 18 Ea Lozenge PO PRN PRN Sore Throat Ezetimibe 10 mg 10/23/24 09:00 10/26/24 08:55 Ezetimibe 10 Mg Tablet PO 10 mg DAILY FLORINDA Administration Heparin Sodium (Porcine) 5,000 units 10/24/24 21:00 10/26/24 08:51 Heparin Sodium 5,000 Units/Ml Vial SUB-Q Not Given Q12HR FLORINDA Hydrochlorothiazide 12.5 mg 10/23/24 09:00 10/26/24 08:55 Hydrochlorothiazide 12.5 Mg Capsule PO 12.5 mg QAM FLORINDA Administration Dextrose 1,000 mls @ 50 mls/hr 10/24/24 09:09 Dextrose 10% IV CONT .Q20H PRN if PN is interrupted Multivitamins 1.25 ml/ 1,002.5 mls @ 40 mls/hr 10/25/24 14:00 10/25/24 14:21 Multivitamins 1.25 ml/ Amino IV CONT 40 mls/hr Acids/Electrolytes/Dextrose .Q24H FLORINDA Administration Protocol Fat Emulsion Intravenous 250 mls @ 20.833 mls/hr 10/25/24 14:00 10/25/24 14:21 Lipids 20% IVPB 20.83 mls/hr Q24H FLORINDA Administration Losartan Potassium 100 mg 10/23/24 09:00 10/26/24 08:54 Losartan Potassium 100 Mg Tablet PO 100 mg DAILY FLORINDA Administration Metoprolol Succinate 50 mg 10/24/24 06:00 10/26/24 05:47 Metoprolol Succinate Ext Rel 50 Mg Tabcr PO 50 mg Q12H FLORINDA Administration Morphine Sulfate 2 mg 10/23/24 11:03 10/23/24 11:35 Morphine Sulfate (*Crx) 2 Mg/Ml Inj IV PUSH 2 mg Q2H PRN Administration Pain Rated 7-10 Ondansetron HCl 4 mg 10/22/24 16:46 Ondansetron Inj 4 Mg/2 Ml Vial IV PUSH Q6H PRN Nausea And Vomiting Oxycodone HCl 2.5 mg 10/23/24 09:37 Oxycodone Hcl (*Crx) 2.5 Mg Tab Ir PO Q6H PRN Pain Rated 7-10 Oxycodone/Acetaminophen 1 tablet 10/23/24 09:36 Oxycodone/Acetaminophen (*Crx) 5-325 Mg Tablet PO Q6H PRN Pain Rated 7-10 Potassium Chloride 40 meq 10/26/24 09:00 10/26/24 08:53 Potassium Chloride 20 Meq Er Tablet PO 40 meq DAILY FLORINDA Administration Potassium Chloride 40 meq 10/26/24 14:00 Potassium Chloride 20 Meq Er Tablet PO 10/26/24 14:01 ONCE ONE Pravastatin Sodium 40 mg 10/23/24 09:00 10/26/24 08:55 Pravastatin Sodium 20 Mg Tablet PO 40 mg DAILY FLORINDA Administration Sodium Chloride 10 ml 10/25/24 14:00 10/26/24 06:00 Central Line Flush IV PUSH 10 ml Q8HR FLORINDA Administration Sodium Chloride 10 ml 10/25/24 08:24 Central Line Flush IV PUSH PRN PRN with TPN bag changes Sodium Chloride 20 ml 10/25/24 08:24 Central Line Flush IV PUSH PRN PRN after blood draws Radiology Results: ITS Impressions Venous Doppler Study 10/21/24 15:46 IMPRESSION: 1. No deep venous thrombosis in the right lower limb. Chest CT 10/23/24 20:15 IMPRESSION: Pretracheal lymphadenopathy, otherwise unremarkable intrathoracic findings. Moderate pneumoperitoneum concerning for interval bowel perforation. Results reported telephonically to Jessica Rocha RN by Dr. Sales at 8:23 PM on 10/23/2024. Abdomen/Pelvis CT 10/23/24 21:37 IMPRESSION: Moderate pneumoperitoneum concerning for large bowel perforation. A definite bowel wall defect is not identified. Candidate location at the hepatic flexure based on the presence of a slightly increased amount of pericolonic mesenteric gas bubbles. Persistent stricture of the transverse colon with slight interval decompression of the dilated proximal large bowel. 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 Abdomen Ultrasound 10/24/24 17:08 IMPRESSION: Aborted omental biopsy secondary to free air within the abdomen, precluding adequate visualization. Labs Labs: Laboratory Results - last 24 hr 10/25/24 10/25/24 10/25/24 12:32 18:33 23:32 WBC RBC Hgb Hct MCV MCH MCHC RDW Plt Count MPV Immature Gran % (Auto) Neut % (Auto) Lymph % (Auto) [place] % (Auto) Eos % (Auto) Baso % (Auto) Lymph # (Auto) [place] # (Auto) Eos # (Auto) Baso # (Auto) Abs Immat Gran (auto) Absolute Neuts (auto) Absolute Nucleated RBC Nucleated RBC % Sodium 136 L Potassium 4.0 Chloride 99 Carbon Dioxide 27 Anion Gap 10 BUN 9 Creatinine 0.42 L Estim Creat Clear Calc 105 Estimated GFR > 60 Glucose 112 H POC Capillary Glucose 157 H 148 H Calcium 8.8 Phosphorus Total Bilirubin AST ALT Alkaline Phosphatase Total Protein Albumin 10/26/24 10/26/24 10/26/24 05:42 05:45 11:29 WBC 12.8 H RBC 3.91 L Hgb 11.1 L Hct 33.6 L MCV 85.9 MCH 28.4 MCHC 33.0 RDW 13.0 Plt Count 305 MPV 9.6 Immature Gran % (Auto) 0.5 Neut % (Auto) 75.4 H Lymph % (Auto) 14.6 L [place] % (Auto) 7.4 Eos % (Auto) 1.9 Baso % (Auto) 0.2 Lymph # (Auto) 1.87 [place] # (Auto) 1.0 H Eos # (Auto) 0.2 Baso # (Auto) 0.0 Abs Immat Gran (auto) 0.06 H Absolute Neuts (auto) 9.6 H Absolute Nucleated RBC 0.000 Nucleated RBC % 0.0 Sodium 134 L Potassium 3.2 L Chloride 98 Carbon Dioxide 27 Anion Gap 9 BUN 8 Creatinine 0.43 L Estim Creat Clear Calc 103 Estimated GFR > 60 Glucose 125 H POC Capillary Glucose 140 H 171 H Calcium 8.6 Phosphorus 3.5 Total Bilirubin 0.7 AST 24 ALT 15 Alkaline Phosphatase 80 Total Protein 7.0 Albumin 3.4 L
[2024-10-26] MEDS: FAT EMULSIONS IV 20% 250 ML 20.83 ML IVPB (15:45)
[2024-10-26] MEDS: AMINO ACIDS 5%/D15W/E-LYTES/CA 1,000 ML with MULTIVITAMINS-12 INJ VIAL 1 1.25 ML, MULTI... 40 ML IV CONT (15:46)
[2024-10-26] MEDS: BENZOCAINE/MENTHOL (*BKC) 18 EA LOZENGE 1 LOZENGE PO (17:07)
[2024-10-26 18:43] LABS: Glucose Point of Care 168 mg/dl (65-105)
[2024-10-26 23:45] LABS: Glucose Point of Care 177 mg/dl (65-105)
[2024-10-27] VITALS (18 sets, daily range): BP systolic 130–170; BP diastolic 65–82; PULSE 83–102; RESP 12–20; TEMP 36.2–37.1; O2SAT 93–98
[2024-10-27 05:40] LABS: Glucose Point of Care 190 mg/dl (65-105)
[2024-10-27] MEDS: CENTRAL LINE FLUSH 10 ML IV PUSH ×3 (06:00→20:30)
[2024-10-27 06:52] LABS: Basophils Percent Auto 0.2 % (0.2-1.2); Eosinophils Absolute Auto 0.3 K/mm3 (0-0.3); Eosinophils Percent Auto 2.6 % (0-4.4); Hematocrit 33.9 % (37.0-47.0); Hemoglobin 11.1 g/dL (12.0-15.0); Immature Granulocyte Absolute 0.05 K/mm3 (0.00-0.031); Immature Granulocyte Percent A 0.4 % (0-0.5); Lymphocytes Absolute Auto 1.44 K/mm3 (0.9-3.2); Lymphocytes Percent Auto 11.6 % (18.3-44.2); Mean Corpuscular HGB Conc 32.7 g/dl (32-36); Mean Corpuscular Hemoglobin 28.5 pg (26-34); Mean Corpuscular Volume 86.9 fl (80-100); Mean Platelet Volume 10.2 fl (7.4-10.4); Monocytes Absolute Auto 0.9 K/mm3 (0.1-0.6); Neutrophils Absolute Auto 9.7 K/mm3 (1.3-6.7); Neutrophils Percent Auto 78.2 % (45.5-73.1); Platelet Count Result 354 k/mm3 (150-375); White Blood Count 12.4 K/mm3 (4.5-10.0)
[2024-10-27 06:57] LABS: Alanine Aminotransferase 16 U/L (6-35); Albumin Level 3.5 g/dL (3.5-5.1); Alkaline Phosphatase 82 U/L (38-126); Anion Gap 9 mmol/L (4-12); Aspartate Amino Transferase 20 U/L (14-36); Bilirubin,Total 0.7 mg/dL (0.2-1.3); Blood Urea Nitrogen 9 mg/dL (7-17); Calcium 8.8 mg/dL (8.4-10.2); Carbon Dioxide 28 mmol/L (22-30); Chloride 97 mmol/L (98-107); Estimated CRCL calculation 105 ml/min; Estimated Glomerular Filt Rate > 60; Glucose 165 mg/dL (65-110); Magnesium 2.2 mg/dL (1.6-2.3); Phosphorus 3.4 mg/dL (2.5-4.5); Potassium 3.5 mmol/L (3.4-5.0); Sodium 134 mmol/L (137-145); Triglycerides 96 mg/dL (<150)
--- NOTE | 2024-10-27 07:01 | P.PNIM_ITS ---
Progress Note: A&P Assessment and Plan (1) Bowel obstruction: Code(s): K56.609 - Unspecified intestinal obstruction, unspecified as to partial versus complete obstruction Status: Inactive Assessment and Plan: * Admit to regular medical floor * GI consulted * WBC improved from 14.3> 10.2>9.4>10.7>10.6>12.8>12.4 * Carcinoembryronic Antigen 0.7. * Colonoscopy done 10/23/24 showed: a few diverticula were present in the sigmoid colon. The diverticula were not actively bleeding. A partially-obstructing, large-size friable, infiltrative, malignant appearing, circumferential mass was observed in the transverse colon, size about 3-4 cm, noted small lumen probably 7-8 mm diameter and unable to traverse with scope and reach cecum (original plan was to perform a full colonoscopy). Multiple biopsies were taken. A few small-size internal hemorrhoids were seen in the rectum. The hemorrhoids were not actively bleeding. * Endoscopic diagnosis: Diverticulosis without perforation or abscess without bleeding (K57.30), Malignant appearing colonic mass at transverse colon (C18.4), and Internal hemorrhoids (K64.8). * Surgery following. * Dr. Otero today wrote in plan: Patient has a malignant-appearing stricture mass effect in proximal transverse and hepatic flexure of the colon. Biopsies were obtained and colonoscopy and sent to pathology. It will be least 3 days we get a pathology result back. However by imaging as well as laparoscopic description and evidence of mild aortocaval lymphadenopathy this appears to be consistent with a colon cancer. There is some thickened omentum in the right upper quadrant up against the abdominal wall which may represent omentum. After reviewing the CT scan with the radiologist she feels that this can be biopsied with ultrasound guidance. I have ordered this to be done for tomorrow in Radiology. If this shows advanced disease with at least omental metastasis in the patient may be a candidate for resection and HIPEC. Will discuss with Surgical Oncology surgeons [place] and refer if appropriate. For now stay on clear liquids. Albumin is 3.8 so would not start on TPN just yet. * US biopsy of abdomen retroperitoneal unable to be completed on 10/24/24. * TPN was started on 10/25/24. Albumin 3.5 today. * NPO for surgery today. (2) Abdominal pain: Code(s): R10.9 - Unspecified abdominal pain Status: Acute Assessment and Plan: * Likely secondary to partial obstruction * Supportive care (3) Nausea and vomiting in adult: Code(s): R11.2 - Nausea with vomiting, unspecified Status: Acute Assessment and Plan: * Ondansetron 4 mg ivp q 6 PRN. (4) Stricture intestinal: Code(s): K56.699 - Other intestinal obstruction unspecified as to partial versus complete obstruction Status: Acute Assessment and Plan: * Suspicious for malignancy. (5) Hypokalemia: Code(s): E87.6 - Hypokalemia Status: Acute Assessment and Plan: * Potassium 3.5 * Gave Potassium Chloride 40 meq IVPB x1. Patient is NPO for surgery. * Potassium 40 meq PO daily. * Monitor labs. (6) Back pain: Code(s): M54.9 - Dorsalgia, unspecified Status: Acute Assessment and Plan: * Acetaminophen 650 mg PO q 4 PRN. Subjective Date/time seen: 10/27/24 07:01 Interval history: Patient sitting up in chair awaiting surgery today. Patient reports pain in her back that is a 3 , frequent, and aching. Patient denies chest pain, pa lpitations, headache, dizziness, nausea, or vomiting. Review of Systems Review of Systems: All systems reviewed & are unremarkable except as noted in HPI and below Exam Const: General: no acute distress and uncomfortable Eyes: Sclera: sclerae normal Resp: Effort & Inspection: normal respiratory effort Auscultation: clear to auscultation bilaterally Cardio: Rate: regular rate Rhythm: regular rhythm GI: GI Palp: Yes Soft to palpation Auscultation: normal bowel sounds Neuro: Speech: normal speech Extrem: General: pedal edema bilaterally (trace edema) Psych: Mental Status: mental status grossly normal Affect: normal affect Objective Data Vital Signs Vital Signs: Vital Signs - 24 hr 10/26/24 08:00 10/26/24 12:00 10/26/24 14:00 Temperature 97.6 F Pulse Rate 103 H 97 78 Respiratory Rate 18 Blood Pressure 128/77 Pulse Oximetry 99 10/26/24 16:00 10/26/24 17:06 10/26/24 20:00 Temperature Pulse Rate 100 104 H 98 Respiratory Rate Blood Pressure Pulse Oximetry 10/26/24 21:20 10/27/24 00:00 10/27/24 04:00 Temperature 97.7 F Pulse Rate 98 90 89 Respiratory Rate 16 Blood Pressure 160/67 H Pulse Oximetry 96 10/27/24 05:37 Temperature 97.2 F L Pulse Rate 84 Respiratory Rate 18 Blood Pressure 161/78 H Pulse Oximetry 98 Intake/Output Intake/Output: Intake & Output 10/24/24 10/25/24 10/26/24 10/27/24 23:59 23:59 23:59 23:59 Intake Total 149 802 4106.5 250 Balance 932 748 0442.5 250 Meds/Results Medications: Active Medications Generic Name Dose Route Start Last Admin Trade Name Freq PRN Reason Stop Dose Admin Acetaminophen 650 mg 10/23/24 11:03 Acetaminophen 325 Mg Tablet PO Q4H PRN Mild Pain (1-3) or Fever Amlodipine Besylate 5 mg 10/23/24 09:00 10/26/24 08:55 Amlodipine Besylate 5 Mg Tablet PO 5 mg DAILY FLORINDA Administration Benzocaine 1 lozenge 10/23/24 18:37 10/26/24 17:07 Benzocaine/Menthol (*Bkc) 18 Ea Lozenge PO 1 lozenge PRN PRN Administration Sore Throat Ezetimibe 10 mg 10/23/24 09:00 10/26/24 08:55 Ezetimibe 10 Mg Tablet PO 10 mg DAILY FLORINDA Administration Heparin Sodium (Porcine) 5,000 units 10/24/24 21:00 10/26/24 21:51 Heparin Sodium 5,000 Units/Ml Vial SUB-Q Not Given Q12HR FLORINDA Hydrochlorothiazide 12.5 mg 10/23/24 09:00 10/26/24 08:55 Hydrochlorothiazide 12.5 Mg Capsule PO 12.5 mg QAM FLORINDA Administration Dextrose 1,000 mls @ 50 mls/hr 10/24/24 09:09 Dextrose 10% IV CONT .Q20H PRN if PN is interrupted Multivitamins 1.25 ml/ 1,002.5 mls @ 40 mls/hr 10/25/24 14:00 10/26/24 15:46 Multivitamins 1.25 ml/ Amino IV CONT 40 mls/hr Acids/Electrolytes/Dextrose .Q24H FLORINDA Administration Protocol Fat Emulsion Intravenous 250 mls @ 20.833 mls/hr 10/25/24 14:00 10/27/24 03:46 Lipids 20% IVPB Infused Q24H FLORINDA Infusion Losartan Potassium 100 mg 10/23/24 09:00 10/26/24 08:54 Losartan Potassium 100 Mg Tablet PO 100 mg DAILY FLORINDA Administration Metoprolol Succinate 50 mg 10/24/24 06:00 10/27/24 05:48 Metoprolol Succinate Ext Rel 50 Mg Tabcr PO Not Given Q12H [facility] Morphine Sulfate 2 mg 10/23/24 11:03 10/23/24 11:35 Morphine Sulfate (*Crx) 2 Mg/Ml Inj IV PUSH 2 mg Q2H PRN Administration Pain Rated 7-10 Ondansetron HCl 4 mg 10/22/24 16:46 Ondansetron Inj 4 Mg/2 Ml Vial IV PUSH Q6H PRN Nausea And Vomiting Oxycodone HCl 2.5 mg 10/23/24 09:37 Oxycodone Hcl (*Crx) 2.5 Mg Tab Ir PO Q6H PRN Pain Rated 7-10 Oxycodone/Acetaminophen 1 tablet 10/23/24 09:36 Oxycodone/Acetaminophen (*Crx) 5-325 Mg Tablet PO Q6H PRN Pain Rated 7-10 Potassium Chloride 40 meq 10/26/24 09:00 10/26/24 08:53 Potassium Chloride 20 Meq Er Tablet PO 40 meq DAILY FLORINDA Administration Pravastatin Sodium 40 mg 10/23/24 09:00 10/26/24 08:55 Pravastatin Sodium 20 Mg Tablet PO 40 mg DAILY [facility] Administration Sodium Chloride 10 ml 10/25/24 14:00 10/26/24 21:52 Central Line Flush IV PUSH 10 ml Q8HR FLORINDA Administration Sodium Chloride 10 ml 10/25/24 08:24 Central Line Flush IV PUSH PRN PRN with TPN bag changes Sodium Chloride 20 ml 10/25/24 08:24 Central Line Flush IV PUSH PRN PRN after blood draws Radiology Results: ITS Impressions Venous Doppler Study 10/21/24 15:46 IMPRESSION: 1. No deep venous thrombosis in the right lower limb. Chest CT 10/23/24 20:15 IMPRESSION: Pretracheal lymphadenopathy, otherwise unremarkable intrathoracic findings. Moderate pneumoperitoneum concerning for interval bowel perforation. Results reported telephonically to Jessica Rocha RN by Dr. Sales at 8:23 PM on 10/23/2024. Abdomen/Pelvis CT 10/23/24 21:37 IMPRESSION: Moderate pneumoperitoneum concerning for large bowel perforation. A definite bowel wall defect is not identified. Candidate location at the hepatic flexure based on the presence of a slightly increased amount of pericolonic mesenteric gas bubbles. Persistent stricture of the transverse colon with slight interval decompression of the dilated proximal large bowel. 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 Abdomen Ultrasound 10/24/24 17:08 IMPRESSION: Aborted omental biopsy secondary to free air within the abdomen, precluding adequate visualization. Labs Labs: Laboratory Results - last 24 hr 10/26/24 10/26/24 10/26/24 11:29 18:28 23:39 WBC RBC Hgb Hct MCV MCH MCHC RDW Plt Count MPV Immature Gran % (Auto) Neut % (Auto) Lymph % (Auto) [place] % (Auto) Eos % (Auto) Baso % (Auto) Lymph # (Auto) [place] # (Auto) Eos # (Auto) Baso # (Auto) Abs Immat Gran (auto) Absolute Neuts (auto) Absolute Nucleated RBC Nucleated RBC % Sodium Potassium Chloride Carbon Dioxide Anion Gap BUN Creatinine Estim Creat Clear Calc Estimated GFR Glucose POC Capillary Glucose 171 H 168 H 177 H Calcium Phosphorus Magnesium Total Bilirubin AST ALT Alkaline Phosphatase Total Protein Albumin Triglycerides 10/27/24 10/27/24 05:31 05:44 WBC 12.4 H RBC 3.90 L Hgb 11.1 L Hct 33.9 L MCV 86.9 MCH 28.5 MCHC 32.7 RDW 13.0 Plt Count 354 MPV 10.2 Immature Gran % (Auto) 0.4 Neut % (Auto) 78.2 H Lymph % (Auto) 11.6 L [place] % (Auto) 7.0 Eos % (Auto) 2.6 Baso % (Auto) 0.2 Lymph # (Auto) 1.44 [place] # (Auto) 0.9 H Eos # (Auto) 0.3 Baso # (Auto) 0.0 Abs Immat Gran (auto) 0.05 H Absolute Neuts (auto) 9.7 H Absolute Nucleated RBC 0.000 Nucleated RBC % 0.0 Sodium 134 L Potassium 3.5 Chloride 97 L Carbon Dioxide 28 Anion Gap 9 BUN 9 Creatinine 0.42 L Estim Creat Clear Calc 105 Estimated GFR > 60 Glucose 165 H POC Capillary Glucose 190 H Calcium 8.8 Phosphorus 3.4 Magnesium 2.2 Total Bilirubin 0.7 AST 20 ALT 16 Alkaline Phosphatase 82 Total Protein 7.0 Albumin 3.5 Triglycerides 96 Quality VTE Prophylaxis VTE prophylaxis: mechanical ordered
[2024-10-27] MEDS: ACETAMINOPHEN 325 MG TABLET 650 MG PO (07:02)
[2024-10-27 07:04] LABS: Transferrin 185 mg/dL (206-381)
[2024-10-27 07:11] LABS: INR 1.1; Partial Thromboplastin Time 34.1 Seconds (22.3-36.8); Prothrombin Time 14.4 Seconds (11.1-14.7)
[2024-10-27] MEDS: amLODIPine BESYLATE 5 MG TABLET PO (07:46)
[2024-10-27] MEDS: METOPROLOL SUCCINATE EXT REL 50 MG TABCR PO ×2 (07:46→17:37)
--- NOTE | 2024-10-27 08:21 | ECG_ITS ---
Test Date: 2024-10-27 09:07:23 Measurements Intervals [place] Rate: 90 P: 41 NH: 155 QRS: 56 QRSD: 73 T: 13 QT: 351 QTc: 431 Interpretive Statements SINUS RHYTHM LOW QRS VOLTAGE IN PRECORDIAL LEADS MINIMAL Q WAVES- INFERIOR LEADS BORDERLINE T WAVE ABNORMALITY- ANT/INF LEADS BASELINE ARTIFACT- I, II, III, AVR, AVL, AVF BORDERLINE ECG No previous ECG available for comparison Electronically Signed On 10-27-2024 09:35:48 CRITICAL CARE PHYSICIAN ASSISTANT by Saji Abrams D.O.
[2024-10-27] MEDS: KCL 20 MEQ/SW 100 ML 100 ML 50 MEQ IVPB (08:29)
--- NOTE | 2024-10-27 08:33 | WPDANESEPPF ---
Anes - Initial Pre Proc Eval Procedure: Operation Date: 10/23/24 14:30 Proposed Procedures p Colonoscopy - Ramos Capellan MD Operation Date: 10/27/24 09:30 Proposed Procedures p Laparoscopic Diverting Loop Ileostomy ,Possible Open - Taz Otero MD s Insertion Robert Cath - Taz Otero MD Date/Time: 10/27/24 08:33 Surgeon: Rosita Bauman MD Pre Op Diagnosis: bowel obstruction Patient Data Age: 68 Gender: F Height: 1.55 m Weight: 87.6 kg Last Vital Signs Temp 36.2 C L 10/27/24 05:37 Pulse 97 10/27/24 07:46 Resp 18 10/27/24 05:37 BP 161/78 H 10/27/24 05:37 Pulse Ox 98 10/27/24 05:37 O2 Del Method Room Air 10/24/24 20:00 Allergies Allergy/AdvReac Type Severity Reaction Status Date / Time No Known Allergies Allergy Verified 10/23/24 09:33 Home Medications ?Medication ?Instructions ?Recorded ?Confirmed ?Type amlodipine 5 mg tablet 5 mg PO DAILY 10/15/24 10/22/24 History aspirin 81 mg chewable tablet 81 mg PO DAILY 10/15/24 10/22/24 History ezetimibe 10 mg tablet 10 mg PO DAILY 10/15/24 10/22/24 History losartan 100 1 tablet PO DAILY 10/15/24 10/22/24 History mg-hydrochlorothiazide 12.5 mg tablet metoprolol succinate 50 mg 50 mg PO Q12H 10/15/24 10/22/24 History tablet,extended release 24 hr potassium chloride 10 mEq 10 meq PO DAILY 10/15/24 10/22/24 History tablet,extended release pravastatin 40 mg tablet 40 mg PO DAILY 10/15/24 10/22/24 History levofloxacin 750 mg tablet 750 mg PO DAILY 11 days #11 tabs 10/18/24 10/22/24 Rx metronidazole 500 mg tablet 500 mg PO Q8H 11 days #33 tabs 10/18/24 10/22/24 Rx oxycodone-acetaminophen 7.5 mg-325 1 tablet PO Q6H PRN pain 5 days #7 10/18/24 10/22/24 Rx mg tablet tabs Laboratory Tests 0210/26/24 10/26/24 11:29 18:28 23:39 WBC RBC Hgb Hct MCV MCH MCHC RDW Plt Count MPV Immature Gran % (Auto) Neut % (Auto) Lymph % (Auto) [place] % (Auto) Eos % (Auto) Baso % (Auto) Lymph # (Auto) [place] # (Auto) Eos # (Auto) Baso # (Auto) Abs Immat Gran (auto) Absolute Neuts (auto) Absolute Nucleated RBC Nucleated RBC % PT INR APTT Sodium Potassium Chloride Carbon Dioxide Anion Gap BUN Creatinine Estim Creat Clear Calc Estimated GFR Glucose POC Capillary Glucose 171 H mg/dl 168 H mg/dl 177 H mg/dl (65-105) (65-105) (65-105) Calcium Phosphorus Magnesium Transferrin Total Bilirubin AST ALT Alkaline Phosphatase Total Protein Albumin Triglycerides 10/27/24 10/27/24 05:31 05:44 WBC 12.4 H K/mm3 (4.5-10.0) RBC 3.90 L M/mm3 (4.2-5.4) Hgb 11.1 L g/dL (12.0-15.0) Hct 33.9 L % (37.0-47.0) MCV 86.9 fl (80-100) MCH 28.5 pg (26-34) MCHC 32.7 g/dl (32-36) RDW 13.0 % (11.5-14.5) Plt Count 354 k/mm3 (150-375) MPV 10.2 fl (7.4-10.4) Immature Gran % (Auto) 0.4 % (0-0.5) Neut % (Auto) 78.2 H % (45.5-73.1) Lymph % (Auto) 11.6 L % (18.3-44.2) [place] % (Auto) 7.0 % (2.6-8.5) Eos % (Auto) 2.6 % (0-4.4) Baso % (Auto) 0.2 % (0.2-1.2) Lymph # (Auto) 1.44 K/mm3 (0.9-3.2) [place] # (Auto) 0.9 H K/mm3 (0.1-0.6) Eos # (Auto) 0.3 K/mm3 (0-0.3) Baso # (Auto) 0.0 K/mm3 (0.0-0.1) Abs Immat Gran (auto) 0.05 H K/mm3 (0.00-0.031) Absolute Neuts (auto) 9.7 H K/mm3 (1.3-6.7) Absolute Nucleated RBC 0.000 K/mm3 (0.0-0.012) Nucleated RBC % 0.0 % (0.0-0.2) PT 14.4 Seconds (11.1-14.7) INR 1.1 APTT 34.1 Seconds (22.3-36.8) Sodium 134 L mmol/L (137-145) Potassium 3.5 mmol/L (3.4-5.0) Chloride 97 L mmol/L (98-107) Carbon Dioxide 28 mmol/L (22-30) Anion Gap 9 mmol/L (4-12) BUN 9 mg/dL (7-17) Creatinine 0.42 L mg/dL (0.7-1.0) Estim Creat Clear Calc 105 ml/min Estimated GFR > 60 (59 - ) Glucose 165 H mg/dL (65-110) POC Capillary Glucose 190 H mg/dl (65-105) Calcium 8.8 mg/dL (8.4-10.2) Phosphorus 3.4 mg/dL (2.5-4.5) Magnesium 2.2 mg/dL (1.6-2.3) Transferrin 185 L mg/dL (206-381) Total Bilirubin 0.7 mg/dL (0.2-1.3) AST 20 U/L (14-36) ALT 16 U/L (6-35) Alkaline Phosphatase 82 U/L (38-126) Total Protein 7.0 g/dL (6.3-8.2) Albumin 3.5 g/dL (3.5-5.1) Triglycerides 96 mg/dL (<150) Patient hx anesthesia problems: none Family hx anesthesia problems: none Results Review: All pre-operative results and documents have been reviewed as part of the pre-operative evaluation. [facility] Past Medical History Medical History (Updated 10/27/24 @ 08:34 by Cade Barton MD) Bowel obstruction Mass of colon Hyperlipidemia Hypertension History of cervical cancer History of breast cancer Surgical History Surgical History History of laparotomy She had some open repair for prolapse, possibly cystocele History of total abdominal hysterectomy History of lumpectomy of left breast Family History Family History Sibling Lung cancer COVID Diabetes mellitus Father Leukemia Mother Heart trouble Social History Social History Smoking status: Never smoker Second hand tobacco smoke exposure: No Alcohol intake: never Substance use: never Do You Feel Safe in your Home?: Yes Lack of Transportation: No Lack of Food: Never True Current Housing: I Have Housing Concerned About Future Housing: No Difficulty Paying Gas/Electric Bills: No Difficulty Paying for Meds: No Currently Unemployed: No Education: Grade School Difficulty w/ Childcare or Family Care: No Spiritual care concerns: No Anes - Eval Final PreProcedure Day of Procedure 10/27/24 08:33 Patient weight: obese Heart: regular rate and rhythm Lungs: clear to auscultation Airway: Mallampati scale class II Neurological: alert and oriented Last oral intake: >/= 8 hours ASA classification: III Emergent: no Anesthetic plan: proceed Anesthesia type and monitoring: general ETT and standard monitoring Results Review: All pre-operative results and documents have been reviewed as part of the pre-operative evaluation. Informed Consent: The patient's anesthetic plan and its attendant risks and benefits were discussed with the patient/family/POA. Questions were solicited and answers provided to the satisfaction of the patient/family/POA.
[2024-10-27] MEDS: KETOROLAC 15 MG/ML VIAL (*BKC) IV PUSH (09:10)
[2024-10-27] MEDS: LACTATED RINGERS 1,000 ML 30 ML IV CONT ×2 (09:10→12:43)
[2024-10-27] MEDS: ALVIMOPAN 12 MG CAPSULE PO (09:10)
[2024-10-27] MEDS: ACETAMINOPHEN 500 MG TABLET 1000 MG PO (09:10)
--- NOTE | 2024-10-27 09:11 | WPDHPUPDATE1 ---
History and Physical Update Update Date/Time: 10/27/24 09:11 History and Physical has been reviewed, including an updated exam of the patient. There are NO changes in the patient's condition. Risks, benefits, and alternatives have been discussed and questions answered. Patient agrees to proceed with procedure.
[2024-10-27] MEDS: ceFAZolin 2 GM/D5W 50 ML 2 GM/50 ML BAG IVPB (09:23)
[2024-10-27] MEDS: metroNIDAZOLE 500 MG/ISO 100ML 500 MG/100 ML BAG 100 MG IVPB (09:48)
--- NOTE | 2024-10-27 10:34 | SUR.OPER ---
Specimen sent fresh for permanent with KAVIN Moore and received in pathology by Stella
[2024-10-27] MEDS: LIDO 1%/EPINEPHRINE 1:100,000 20 ML VIAL 5 ML INFILTRATE (11:19)
[2024-10-27] MEDS: BUPivacaine HCL 0.5% 10 ML AMP 5 ML INFILTRATE (11:20)
[2024-10-27] MEDS: HEPARIN SODIUM 1,000 UNITS/ML VIAL 1000 UNITS IV PUSH (11:57)
--- NOTE | 2024-10-27 11:58 | SUR.OPER ---
5000 units heparin in 4ml IVNS injected by Dr. Otero as final flush port a cath insertion.
--- NOTE | 2024-10-27 12:38 | P.OPB_ITS ---
Procedure Note - Brief Procedure Note - Brief Date of procedure: 10/27/24 Transverse colonic obstruction secondary to colon cancer. Post-op diagnosis: Same Procedure performed: Laparoscopic diverting loop ileostomy Laparoscopic incisional omental biopsy Placement of right subclavian vein single-lumen port a catheter with intraoperative fluoroscopy Surgeon: Taz Otero MD Residential Mortgage Manager: OLY Walsh Anesthesia: GETA Implants: 9.6 [place] single-lumen silastic catheter attached to Smart port via right subclavian vein Estimated blood loss (mL): 50 Drains: No Packing: No Pathology: Yes (Portion of omentum to pathology) Complications: No immediate complications Condition: Stable Disposition: PACU
[2024-10-27 13:09] LABS: Glucose Point of Care 173 mg/dl (65-105)
[2024-10-27] MEDS: LOSARTAN POTASSIUM 100 MG TABLET PO (14:53)
[2024-10-27] MEDS: AMINO ACIDS 5%/D15W/E-LYTES/CA 1,000 ML with MULTIVITAMINS-12 INJ VIAL 1 1.25 ML, MULTI... 40 ML IV CONT (14:54)
[2024-10-27] MEDS: FAT EMULSIONS IV 20% 250 ML 20.83 ML IVPB (14:58)
[2024-10-27] MEDS: hydroCHLOROthiazide 12.5 MG CAPSULE PO (15:08)
[2024-10-27] MEDS: PRAVASTATIN SODIUM 20 MG TABLET 40 MG PO (15:08)
[2024-10-27] MEDS: EZETIMIBE 10 MG TABLET PO (15:08)
[2024-10-27] MEDS: POTASSIUM CHLORIDE 20 MEQ ER TABLET 40 MEQ PO (15:09)
[2024-10-27] MEDS: ARTIFICIAL TEARS OPHTH SOLN 15 ML BOTTLE 1 DROP EACH EYE (15:23)
[2024-10-27] MEDS: oxyCODONE/ACETAMINOPHEN (*CRX) 5-325 MG TABLET 1 TABLET PO (16:37)
--- NOTE | 2024-10-27 16:50 | PC.NURSE ---
Dr Taylor notified that patient c/o right eye pain.
--- NOTE | 2024-10-27 16:51 | PC.NURSE ---
Dr Otero notified of small amount of blood in ileostomy bag.
[2024-10-27] MEDS: PROPARACAINE HCL 0.5% 15 ML OPHTH SOLN 1 DROP EACH EYE (17:37)
[2024-10-27 18:31] LABS: Glucose Point of Care 247 mg/dl (65-105)
[2024-10-27] MEDS: HEPARIN SODIUM 5,000 UNITS/ML VIAL 5000 UNITS SUB-Q (20:26)
[2024-10-27 23:50] LABS: Glucose Point of Care 255 mg/dl (65-105)
[2024-10-28] VITALS (13 sets, daily range): BP systolic 125–170; BP diastolic 54–74; PULSE 84–95; RESP 16–18; TEMP 36.1–37; O2SAT 91–96
[2024-10-28] MEDS: oxyCODONE/ACETAMINOPHEN (*CRX) 5-325 MG TABLET 1 TABLET PO ×3 (03:09→16:54)
[2024-10-28 05:40] LABS: Glucose Point of Care 226 mg/dl (65-105)
[2024-10-28] MEDS: METOPROLOL SUCCINATE EXT REL 50 MG TABCR PO ×2 (06:02→16:54)
[2024-10-28] MEDS: CENTRAL LINE FLUSH 10 ML IV PUSH ×3 (06:03→20:21)
[2024-10-28 06:33] LABS: Basophils Percent Auto 0.2 % (0.2-1.2); Eosinophils Percent Auto 0.1 % (0-4.4); Hematocrit 26.9 % (37.0-47.0); Hemoglobin 8.9 g/dL (12.0-15.0); Immature Granulocyte Percent A 0.6 % (0-0.5); Lymphocytes Absolute Auto 1.69 K/mm3 (0.9-3.2); Lymphocytes Percent Auto 9.9 % (18.3-44.2); Mean Corpuscular HGB Conc 33.1 g/dl (32-36); Mean Corpuscular Hemoglobin 28.8 pg (26-34); Mean Corpuscular Volume 87.1 fl (80-100); Monocytes Absolute Auto 1.1 K/mm3 (0.1-0.6); Monocytes Percent Auto 6.6 % (2.6-8.5); Neutrophils Absolute Auto 14.1 K/mm3 (1.3-6.7); Neutrophils Percent Auto 82.6 % (45.5-73.1); Platelet Count Result 324 k/mm3 (150-375); Red Blood Count 3.09 M/mm3 (4.2-5.4); Red Cell Distribution Width 12.8 % (11.5-14.5); White Blood Count 17.1 K/mm3 (4.5-10.0)
[2024-10-28 06:46] LABS: Alanine Aminotransferase 15 U/L (6-35); Alkaline Phosphatase 67 U/L (38-126); Anion Gap 7 mmol/L (4-12); Aspartate Amino Transferase 20 U/L (14-36); Bilirubin,Total 0.5 mg/dL (0.2-1.3); Blood Urea Nitrogen 12 mg/dL (7-17); Calcium 8.1 mg/dL (8.4-10.2); Carbon Dioxide 29 mmol/L (22-30); Chloride 97 mmol/L (98-107); Estimated CRCL calculation 98 ml/min; Estimated Glomerular Filt Rate > 60; Glucose 199 mg/dL (65-110); Phosphorus 3.2 mg/dL (2.5-4.5); Sodium 133 mmol/L (137-145)
--- NOTE | 2024-10-28 07:49 | P.PNAN_ITS ---
Anes - Prog Note Post-Op Date/Time: 10/28/24 07:49 Cardiovascular status: normal Respiratory status: normal Airway patency: baseline Mental status: baseline Post-Op hydration status: normal Vital Signs: Last Vital Signs Temp 37.0 C 10/28/24 07:15 Pulse 88 10/28/24 07:15 Resp 18 10/28/24 07:15 BP 146/58 H 10/28/24 07:15 Pulse Ox 93 10/28/24 07:15 O2 Del Method Room Air 10/27/24 20:00 O2 Flow Rate 3 10/27/24 14:00 Pain Score (VAS): 11/03 I/O: Intake & Output 10/27/24 10/27/24 10/28/24 15:59 23:59 07:59 Intake Total 1175.3 550 Balance 1175.3 550 Laboratory Tests 10/28/24 06:11 10/28/24 06:11 10/27/24 10/27/24 10/27/24 08:40 13:05 18:27 WBC RBC Hgb Hct MCV MCH MCHC RDW Plt Count MPV Immature Gran % (Auto) Neut % (Auto) Lymph % (Auto) [place] % (Auto) Eos % (Auto) Baso % (Auto) Lymph # (Auto) [place] # (Auto) Eos # (Auto) Baso # (Auto) Abs Immat Gran (auto) Absolute Neuts (auto) Absolute Nucleated RBC Nucleated RBC % Sodium Potassium Chloride Carbon Dioxide Anion Gap BUN Creatinine Estim Creat Clear Calc Estimated GFR Glucose POC Capillary Glucose 173 H 247 H Calcium Phosphorus Total Bilirubin AST ALT Alkaline Phosphatase Total Protein Albumin Blood Type O Positive Antibody Screen Negative 10/27/24 10/28/24 10/28/24 23:39 05:31 06:11 WBC 17.1 H RBC 3.09 L Hgb 8.9 L Hct 26.9 L MCV 87.1 MCH 28.8 MCHC 33.1 RDW 12.8 Plt Count 324 MPV 10.0 Immature Gran % (Auto) 0.6 H Neut % (Auto) 82.6 H Lymph % (Auto) 9.9 L [place] % (Auto) 6.6 Eos % (Auto) 0.1 Baso % (Auto) 0.2 Lymph # (Auto) 1.69 [place] # (Auto) 1.1 H Eos # (Auto) 0.0 Baso # (Auto) 0.0 Abs Immat Gran (auto) 0.10 H Absolute Neuts (auto) 14.1 H Absolute Nucleated RBC 0.000 Nucleated RBC % 0.0 Sodium 133 L Potassium 4.0 Chloride 97 L Carbon Dioxide 29 Anion Gap 7 BUN 12 Creatinine 0.47 L Estim Creat Clear Calc 98 Estimated GFR > 60 Glucose 199 H POC Capillary Glucose 255 H 226 H Calcium 8.1 L Phosphorus 3.2 Total Bilirubin 0.5 AST 20 ALT 15 Alkaline Phosphatase 67 Total Protein 6.0 L Albumin 3.0 L Blood Type Antibody Screen Microbiology 10/21/24 22:02 Blood Blood Culture - Final 10/21/24 22:02 Blood Blood Culture - Final Post-procedural complaints: none Patient Feedback: Patient satisfied with anesthetic care.
--- NOTE | 2024-10-28 08:27 | PCNFU ---
Nutrition Follow-Up Complete: Inadequate energy intake related to small bowel obstruction as evidenced by need for parenteral nutrition Meet estimated nutrition needs - Progressing. meeting ~65% EER with TPN PO intake as medically able - Not advancing yet. Continue same goals Goal: Pt current nutrition is TPN Clinmix E 02/15 with lipids running @ 40 ml/h. Nutrition recommendation: Could advance TPN to 60 ml/h to better meet nutrition needs (1522 kcal, 72 g protein, 1690 ml total volume) Last recorded weight is 92.1 kg. Up from 87.6 kg 10/21/24 Bowel Motility: +1 BM Labs Reviewed: Hgb 8.9, 26.9, Alb 3.0, Na 133, Cre 0.47, Glu 199, Trig 96 Meds Noted: Hydrochlorothiazide, Zofran, heparin Skin: Surgical Additional Notes: Had lap diverting loop ileostomy yesterday d/t colon mass. Tolerating TPN @ 40 ml/h, provides 1182 kcal, (~65% EER), 48 g protein, 1210 ml total volume. Following Monitoring TPN tolerance, labs, output, weights, plan of care, diet advancement Follow up Tuesdays/Fridays
[2024-10-28] MEDS: HEPARIN SODIUM 5,000 UNITS/ML VIAL 5000 UNITS SUB-Q ×2 (08:48→20:20)
[2024-10-28] MEDS: LOSARTAN POTASSIUM 100 MG TABLET PO (08:50)
[2024-10-28] MEDS: EZETIMIBE 10 MG TABLET PO (08:51)
[2024-10-28] MEDS: amLODIPine BESYLATE 5 MG TABLET PO (08:52)
[2024-10-28] MEDS: hydroCHLOROthiazide 12.5 MG CAPSULE PO (08:54)
[2024-10-28] MEDS: PRAVASTATIN SODIUM 20 MG TABLET 40 MG PO (08:55)
[2024-10-28] MEDS: ASPIRIN 81 MG CHEWABLE TABLET PO (09:00)
--- NOTE | 2024-10-28 11:05 | P.PNIM_ITS ---
Progress Note: A&P Assessment and Plan (1) Bowel obstruction: Code(s): K56.609 - Unspecified intestinal obstruction, unspecified as to partial versus complete obstruction Status: Inactive Assessment and Plan: * Admit to regular medical floor * GI consulted * WBC improved from 14.3> 10.2>9.4>10.7>10.6>12.8>12.4>17.1. * Carcinoembryronic Antigen 0.7. * Colonoscopy done 10/23/24 showed: a few diverticula were present in the sigmoid colon. The diverticula were not actively bleeding. A partially-obstructing, large-size friable, infiltrative, malignant appearing, circumferential mass was observed in the transverse colon, size about 3-4 cm, noted small lumen probably 7-8 mm diameter and unable to traverse with scope and reach cecum (original plan was to perform a full colonoscopy). Multiple biopsies were taken. A few small-size internal hemorrhoids were seen in the rectum. The hemorrhoids were not actively bleeding. * Endoscopic diagnosis: Diverticulosis without perforation or abscess without bleeding (K57.30), Malignant appearing colonic mass at transverse colon (C18.4), and Internal hemorrhoids (K64.8). * Surgery following. * Dr. Otero 10/23/24 wrote in plan: Patient has a malignant-appearing stricture mass effect in proximal transverse and hepatic flexure of the colon. Biopsies were obtained and colonoscopy and sent to pathology. It will be least 3 days we get a pathology result back. However by imaging as well as laparoscopic description and evidence of mild aortocaval lymphadenopathy this appears to be consistent with a colon cancer. There is some thickened omentum in the right upper quadrant up against the abdominal wall which may represent omentum. After reviewing the CT scan with the radiologist she feels that this can be biopsied with ultrasound guidance. I have ordered this to be done for tomorrow in Radiology. If this shows advanced disease with at least omental metastasis in the patient may be a candidate for resection and HIPEC. Will discuss with Surgical Oncology surgeons [place] and refer if appropriate. For now stay on clear liquids. Albumin is 3.8 so would not start on TPN just yet. * US biopsy of abdomen retroperitoneal unable to be completed on 10/24/24. * TPN was started on 10/25/24. Albumin 3.0 today. * 2/3/25 laparoscopic diverting loop ileostomy with omental biopsy, and placement of right subclavian Robert cath. * 10/29/24 wound care to teach ostomy training. (2) Abdominal pain: Code(s): R10.9 - Unspecified abdominal pain Status: Acute Assessment and Plan: * Likely secondary to partial obstruction * Supportive care (3) Nausea and vomiting in adult: Code(s): R11.2 - Nausea with vomiting, unspecified Status: Acute Assessment and Plan: * Ondansetron 4 mg ivp q 6 PRN. (4) Stricture intestinal: Code(s): K56.699 - Other intestinal obstruction unspecified as to partial versus complete obstruction Status: Acute Assessment and Plan: * Suspicious for malignancy. (5) Hypokalemia: Code(s): E87.6 - Hypokalemia Status: Acute Assessment and Plan: * Potassium 4.0. * Potassium 40 meq PO daily. * Monitor labs. (6) Back pain: Code(s): M54.9 - Dorsalgia, unspecified Status: Acute Assessment and Plan: * Acetaminophen 650 mg PO q 4 PRN. Subjective Date/time seen: 10/28/24 11:05 Interval history: Patient sitting up in chair. Patient reports abdominal pain is an 6 , frequent, and soreness. Patient denies chest pain, palpitations, headache, dizziness, nausea, or vomiting. Review of Systems Review of Systems: All systems reviewed & are unremarkable except as noted in HPI and below Exam Const: General: no acute distress and uncomfortable Eyes: Sclera: sclerae normal Resp: Effort & Inspection: normal respiratory effort Auscultation: clear to auscultation bilaterally Cardio: Rate: regular rate Rhythm: regular rhythm GI: GI Palp: Yes Soft to palpation and Yes Tenderness to palpation present (GI) Other: hypoactive bowel sounds. Loop ileostomy with scant serosanguineous drainage, stoma slightly dusk. Extrem: General: pedal edema bilaterally (trace) Psych: Mental Status: mental status grossly normal Affect: normal affect Objective Data Vital Signs Vital Signs: Vital Signs - 24 hr 10/27/24 12:43 10/27/24 13:00 10/27/24 13:15 Temperature 98.8 F Pulse Rate 97 96 102 H Respiratory Rate 14 20 20 Blood Pressure 130/82 168/80 H 169/78 H Pulse Oximetry 95 95 94 Oxygen Delivery Simple Face Mask Simple Face Mask Simple Face Mask Oxygen Flow Rate 8 8 8 10/27/24 13:30 10/27/24 13:45 10/27/24 14:00 Temperature Pulse Rate 102 H 98 95 Respiratory Rate 14 14 12 Blood Pressure 170/77 H 151/70 H 164/66 H Pulse Oximetry 96 93 96 Oxygen Delivery Nasal Cannula Nasal Cannula Nasal Cannula Oxygen Flow Rate 3 3 3 10/27/24 14:00 10/27/24 16:00 10/27/24 17:37 Temperature Pulse Rate 94 83 96 Respiratory Rate 20 Blood Pressure 146/76 H Pulse Oximetry 97 Oxygen Delivery Oxygen Flow Rate 10/27/24 18:38 10/27/24 20:00 10/27/24 20:00 Temperature Pulse Rate 90 Respiratory Rate Blood Pressure Pulse Oximetry 96 Oxygen Delivery Room Air Room Air Oxygen Flow Rate 10/27/24 21:06 10/27/24 23:51 10/28/24 00:00 Temperature 97.6 F 97.1 F L Pulse Rate 89 92 84 Respiratory Rate 16 16 Blood Pressure 137/65 156/67 H Pulse Oximetry 94 94 Oxygen Delivery Oxygen Flow Rate 10/28/24 04:00 10/28/24 05:45 10/28/24 06:02 Temperature 97.0 F L Pulse Rate 88 85 85 Respiratory Rate 18 Blood Pressure 152/74 H Pulse Oximetry 96 Oxygen Delivery Oxygen Flow Rate 10/28/24 07:15 10/28/24 08:00 10/28/24 08:00 Temperature 98.6 F Pulse Rate 88 87 Respiratory Rate 18 Blood Pressure 146/58 H Pulse Oximetry 93 93 Oxygen Delivery Room Air Oxygen Flow Rate 10/28/24 08:08 Temperature 98 F Pulse Rate 89 Respiratory Rate 16 Blood Pressure 145/54 H Pulse Oximetry 93 Oxygen Delivery Oxygen Flow Rate Intake/Output Intake/Output: Intake & Output 10/25/24 10/26/24 10/27/24 10/28/24 23:59 23:59 23:59 23:59 Intake Total 750 2152.5 1425.3 670 Output Total 120 Balance 750 2152.5 1425.3 550 Meds/Results Medications: Active Medications Generic Name Dose Route Start Last Admin Trade Name Freq PRN Reason Stop Dose Admin Acetaminophen 650 mg 10/23/24 11:03 10/27/24 07:02 Acetaminophen 325 Mg Tablet PO 650 mg Q4H PRN Administration Mild Pain (1-3) or Fever Amlodipine Besylate 5 mg 10/23/24 09:00 10/28/24 08:52 Amlodipine Besylate 5 Mg Tablet PO 5 mg DAILY FLORINDA Administration Artificial Tears 1 drop 10/27/24 15:06 10/27/24 15:23 Artificial Tears Ophth Soln 15 Ml Bottle EACH EYE 1 drop QID PRN Administration Dry Eye(s) Artificial Tears 1 drop 10/27/24 16:48 Artificial Tears Ophth Soln 15 Ml Bottle EACH EYE Q2H PRN Dry Eye(s) Aspirin 81 mg 10/28/24 09:00 Aspirin 81 Mg Chewable Tablet PO DAILY FLORINDA Benzocaine 1 lozenge 10/23/24 18:37 10/26/24 17:07 Benzocaine/Menthol (*Bkc) 18 Ea Lozenge PO 1 lozenge PRN PRN Administration Sore Throat Ezetimibe 10 mg 10/23/24 09:00 10/28/24 08:51 Ezetimibe 10 Mg Tablet PO 10 mg DAILY FLORINDA Administration Heparin Sodium (Porcine) 5,000 units 10/24/24 21:00 10/28/24 08:48 Heparin Sodium 5,000 Units/Ml Vial SUB-Q 5,000 units Q12HR FLORINDA Administration Hydrochlorothiazide 12.5 mg 10/23/24 09:00 10/28/24 08:54 Hydrochlorothiazide 12.5 Mg Capsule PO 12.5 mg QAM FLORINDA Administration Dextrose 1,000 mls @ 50 mls/hr 10/24/24 09:09 Dextrose 10% IV CONT .Q20H PRN if PN is interrupted Multivitamins 1.25 ml/ 1,002.5 mls @ 40 mls/hr 10/25/24 14:00 10/27/24 14:54 Multivitamins 1.25 ml/ Amino IV CONT 40 mls/hr Acids/Electrolytes/Dextrose .Q24H FLORINDA Administration Protocol Fat Emulsion Intravenous 250 mls @ 20.833 mls/hr 10/25/24 14:00 10/28/24 02:59 Lipids 20% IVPB Infused Q24H FLORINDA Infusion Ketorolac Tromethamine 1 drop 10/28/24 09:00 Ketorolac 0.5% Op Soln 5 Ml Bottle AFFCTD EYE 10/31/24 16:59 QID FLORINDA Losartan Potassium 100 mg 10/23/24 09:00 10/28/24 08:50 Losartan Potassium 100 Mg Tablet PO 100 mg DAILY FLORINDA Administration Metoprolol Succinate 50 mg 10/24/24 06:00 10/28/24 06:02 Metoprolol Succinate Ext Rel 50 Mg Tabcr PO 50 mg Q12H FLORINDA Administration Morphine Sulfate 2 mg 10/23/24 11:03 10/23/24 11:35 Morphine Sulfate (*Crx) 2 Mg/Ml Inj IV PUSH 2 mg Q2H PRN Administration Pain Rated 7-10 Ondansetron HCl 4 mg 10/22/24 16:46 Ondansetron Inj 4 Mg/2 Ml Vial IV PUSH Q6H PRN Nausea And Vomiting Oxycodone/Acetaminophen 1 tablet 10/23/24 09:36 10/28/24 03:09 Oxycodone/Acetaminophen (*Crx) 5-325 Mg Tablet PO 1 tablet Q6H PRN Administration Pain Rated 7-10 Potassium Chloride 40 meq 10/26/24 09:00 10/27/24 15:09 Potassium Chloride 20 Meq Er Tablet PO 40 meq DAILY FLORINDA Administration Pravastatin Sodium 40 mg 10/23/24 09:00 10/28/24 08:55 Pravastatin Sodium 20 Mg Tablet PO 40 mg DAILY FLORINDA Administration Sodium Chloride 10 ml 10/25/24 14:00 10/28/24 06:03 Central Line Flush IV PUSH 10 ml Q8HR FLORINDA Administration Sodium Chloride 10 ml 10/25/24 08:24 Central Line Flush IV PUSH PRN PRN with TPN bag changes Sodium Chloride 20 ml 10/25/24 08:24 Central Line Flush IV PUSH PRN PRN after blood draws Radiology Results: ITS Impressions Venous Doppler Study 10/21/24 15:46 IMPRESSION: 1. No deep venous thrombosis in the right lower limb. Chest CT 10/23/24 20:15 IMPRESSION: Pretracheal lymphadenopathy, otherwise unremarkable intrathoracic findings. Moderate pneumoperitoneum concerning for interval bowel perforation. Results reported telephonically to Jessica Rocha RN by Dr. Sales at 8:23 PM on 10/23/2024. Abdomen/Pelvis CT 10/23/24 21:37 IMPRESSION: Moderate pneumoperitoneum concerning for large bowel perforation. A definite bowel wall defect is not identified. Candidate location at the hepatic flexure based on the presence of a slightly increased amount of pericolonic mesenteric gas bubbles. Persistent stricture of the transverse colon with slight interval decompression of the dilated proximal large bowel. 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 Abdomen Ultrasound 10/24/24 17:08 IMPRESSION: Aborted omental biopsy secondary to free air within the abdomen, precluding adequate visualization. Chest X-Ray 10/27/24 13:01 IMPRESSION: Mild pulmonary vascular congestion with patchy opacification of the left mid to lower lung field. Supportive devices in position (as detailed above) and ready for immediate use. Labs Labs: Laboratory Results - last 24 hr 10/27/24 10/27/24 10/27/24 13:05 18:27 23:39 WBC RBC Hgb Hct MCV MCH MCHC RDW Plt Count MPV Immature Gran % (Auto) Neut % (Auto) Lymph % (Auto) [place] % (Auto) Eos % (Auto) Baso % (Auto) Lymph # (Auto) [place] # (Auto) Eos # (Auto) Baso # (Auto) Abs Immat Gran (auto) Absolute Neuts (auto) Absolute Nucleated RBC Nucleated RBC % Sodium Potassium Chloride Carbon Dioxide Anion Gap BUN Creatinine Estim Creat Clear Calc Estimated GFR Glucose POC Capillary Glucose 173 H 247 H 255 H Calcium Phosphorus Total Bilirubin AST ALT Alkaline Phosphatase Total Protein Albumin 10/28/24 10/28/24 05:31 06:11 WBC 17.1 H RBC 3.09 L Hgb 8.9 L Hct 26.9 L MCV 87.1 MCH 28.8 MCHC 33.1 RDW 12.8 Plt Count 324 MPV 10.0 Immature Gran % (Auto) 0.6 H Neut % (Auto) 82.6 H Lymph % (Auto) 9.9 L [place] % (Auto) 6.6 Eos % (Auto) 0.1 Baso % (Auto) 0.2 Lymph # (Auto) 1.69 [place] # (Auto) 1.1 H Eos # (Auto) 0.0 Baso # (Auto) 0.0 Abs Immat Gran (auto) 0.10 H Absolute Neuts (auto) 14.1 H Absolute Nucleated RBC 0.000 Nucleated RBC % 0.0 Sodium 133 L Potassium 4.0 Chloride 97 L Carbon Dioxide 29 Anion Gap 7 BUN 12 Creatinine 0.47 L Estim Creat Clear Calc 98 Estimated GFR > 60 Glucose 199 H POC Capillary Glucose 226 H Calcium 8.1 L Phosphorus 3.2 Total Bilirubin 0.5 AST 20 ALT 15 Alkaline Phosphatase 67 Total Protein 6.0 L Albumin 3.0 L Quality VTE Prophylaxis VTE prophylaxis: mechanical ordered
--- NOTE | 2024-10-28 11:10 | W.PM.PROC2 ---
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 Post-op Diagnosis Same Procedure Performed Laparoscopic diverting loop ileostomy Laparoscopic incisional omental biopsy Placement of right subclavian vein ana catheter with intraoperative fluoroscopy Surgeon Taz Otero MD Marketing Business Analyst Loree Delgado [employer] Anesthesia General Indications Patient is a 68-year-old female who unfortunately has a near obstructing transverse colonic mass. The mass was biopsied on endoscopy and results reveal a malignancy and special stains are still being done to identify the specific type of malignancy. Because the tumor is near obstructive she now presents for placement of a diverting loop ileostomy and then placement of a ana catheter to begin chemotherapy treatments. Findings Patient had no evidence of peritoneal studding. She had no evidence of metastatic disease to the surface of the right or left lobe of the liver by laparoscopic inspection. There was nodularity of the omentum overlying the hepatic flexure and mid transverse colon. An incisional laparoscopic biopsy of the omentum was obtained and sent to pathology. There was no obvious evidence of studding of the mesentery. No evidence of small-bowel obstruction. Description of Procedure After informed consent was obtained patient was brought to the operating room she was placed supine position and general endotracheal anesthesia was administered. A Lee catheter was placed decompress the bladder an orogastric tube was placed decompress the stomach. The abdomen was then prepped and draped usual sterile fashion. A time-out was then performed correctly identifying the patient as well as procedure to be performed. She was given perioperative IV antibiotics. I 1st entered the abdomen left upper quadrant utilizing a 5mm Optiview port. Once inside the abdomen insufflated to adequate pneumoperitoneum of 15mmHg of CO2. There was a minimal amount of serous fluid within the abdomen. No large amount of ascites was noted. I then placed additional trocar ports in the left lateral abdominal wall to include a 5mm trocar port and a 10mm trocar port. Viewing the abdomen laparoscopic through these ports I was able to see the surface of the right and left lobes of the liver and there was no evidence of nodularity or masses on the surface of the liver. There was no evidence of peritoneal studding and noted in the upper portions of the abdomen. There was dye staining of the omentum and the area of the mass in the mid transverse colon. There was no obvious direct extension of the tumor through the wall the colon to the omentum but there was certainly was nodularity to the omentum in the right upper quadrant of the abdomen and I could separate the omentum from the colon itself. I then examined the small bowel and there was no evidence of metastatic disease to the peritoneal surface of the mesentery. There was no evidence of small-bowel obstruction around the small bowel distally until I had reached right lower quadrant the abdomen. I felt that I had reached the terminal ileum and this loop of small bowel would easily reach up to the area of the abdominal wall which was marked preoperatively for a loop ileostomy. I then proceeded to obtain multiple laparoscopic pictures of the above noted findings. I then performed an incisional biopsy laparoscopically of the nodular portion of the omentum. The omentum in the right upper quadrant the abdomen was elevated with a laparoscopic grasper and then a LigaSure device was then used to obtain an incisional generous biopsy of a portion of the omentum that was thickened. This tissue was then placed into an Endo-Catch bag and removed through the abdomen through the 10mm trocar port site. Care was taken not to spill any contents from the bag has a was removed through the abdominal wall. The specimen was passed off the table sent to pathology for examination. I then reach Jennifer pneumoperitoneum and then proceeded to make sure there was no bleeding from the omentum. Hemostasis was good. I then placed a laparoscopic Bodfish clamp on to the mesentery of the terminal ileum that I intended to bring up as my loop ileostomy. I then let the abdomen decompress and released the pneumoperitoneum. The external marking on the right abdominal wall for the loop ileostomy was then noted and I made a transverse incision in this area with a scalpel. Dissection was then carried down through the subcutaneous tissues until I reached the anterior rectus fascia. I then incised the anterior rectus fascia longitudinally with electrocautery and then split the rectus muscle fibers longitudinally to reach the posterior rectus fascia. The posterior rectus fascia was then incised electrocautery the peritoneum was opened. I then placed my index finger into the abdomen and then dilated up the opening of the posterior rectus fascia. I then delivered the loop of terminal ileum up through the defect with the laparoscopic grasper which was still attached to the mesentery to the area. A Delta clamp was then used to hold and grasp the loop of small bowel as it was delivered through the abdominal wall. The loop of small bowel as mesentery easily reach through the abdominal wall. I then made a defect through the mesentery to this loop of small bowel then placed an umbilical tape through the defect to keep the small bowel from falling back into the abdomen. I then further deliver the small bowel up through the defect until I felt that I had no small bowel for the loop ileostomy creation. I then replaced the umbilical tape with a ileostomy bridge. The bridge was then secured to the skin with 3-0 nylon sutures. I then incised the anterior anti mesenteric surface of the small-bowel with electrocautery. The enterotomy was extended longitudinally and then I proceeded to suture the mucosa and serosa of the edges of the small bowel to the skin to create the double-barrel loop diverting ileostomy. The edges of the bowel or secured to the dermis of the skin with 3-0 Vicryl sutures over the ileostomy bridge. A loop ileostomy matured easily and there was no evidence of ischemia of the bowel. Once this was done I then insufflated the abdomen 1 last time and looked and made sure there was no twisting of the mesentery. I then removed all the trocar ports under direct visualization and allowed the abdomen decompressed. The port sites were then irrigated sterile saline solution and then the 10mm trocar port fascial defect was closed utilizing 0 Vicryl suture at the fascial level. I then closed all of the port site incision utilizing a running subcuticular 4 Monocryl suture at the skin level. The incisions were cleaned and then skin glue was applied. A ostomy appliance was then placed over the loop ileostomy. At this point the patient was still doing very well as very stable. All the surgical drapes and instruments and tubing were removed and discarded. All counts for the surgical instruments were correct at the end of this portion of the procedure. All new instruments were then opened no new drains were opened. Myself and the full surgical team scrubbed in for the procedure then changed gowns and gloves. The bilateral upper anterior neck and chest was then prepped and draped usual sterile fashion. Another time-out was then performed re-identified the patient and the procedure to be performed at this point which was placement of a ana catheter. She was still under general endotracheal anesthesia and was stable. I then proceeded to make a transverse incision in the right upper anterior chest reason just below the medial 3rd of the right clavicle. Dissection was carried down through the subcutaneous tissue electrocautery and then a subcutaneous port pocket was created below the incision utilizing electrocautery blunt finger dissection. Then with the patient in the head-down Trendelenburg position I then used a long 18gauge needle to cannulate the right subclavian vein on the 1st pass without difficulty. There was prompt return of dark venous appearing blood. A guidewire was advanced through the needle into the right subclavian vein subsequent down into the right atrium of the heart via the superior vena cava. Intraoperative fluoroscopy was then used to visualize the tip of the guidewire which was in the proper position. I then advanced a dilator and breakaway sheath over the guidewire. The guidewire and dilator were removed leaving the sheath in place. I then advanced a 9.6 [place] single-lumen silastic catheter through the sheath into the right atrial the heart via the superior vena cava. The sheath was removed leaving the catheter in place. Intraoperative fluoroscopy was then used to visualize the tip of the catheter and then with traction on the catheter externals the chest wall I pulled back until the tip of the catheter was in the distal superior vena cava. I then cut the catheter to the appropriate length at the skin level and attached to the titanium Smart Port. The port was then secured in the subcutaneous port pocket with 3-0 Prolene sutures. I then irrigated the port pocket sterile saline solution hemostasis was good. I then accessed the port and aspirated blood easily and was flushed with heparinized saline solution. I then close incision utilizing interrupted 3-0 Vicryl sutures in subcutaneous tissues. The skin edges then approximated utilizing a running subcuticular 4 Monocryl suture. Incision was cleaned the skin glue was applied. I then accessed the port through the skin and aspirated blood again easily and then was flushed with 5000units of IV heparin. The patient tolerated the procedure well no complications. All sponges, needles, and instrument counts were correct at the end procedure. EBL was _50__cc. The patient was awakened and taken to recovery in stable and satisfactory condition. Implants Smart Port right subclavian vein. Estimated Blood Loss 50 Urine Output 120 Drains No Packing No Pathology Yes ( Omental tissue to pathology) Complications No immediate complications Condition Stable Disposition PACU [facility] Billing Surgery - Charge Forward: Surgery Billing
[2024-10-28] MEDS: POTASSIUM CHLORIDE 20 MEQ ER TABLET 40 MEQ PO (11:29)
[2024-10-28 11:54] LABS: Glucose Point of Care 226 mg/dl (65-105)
[2024-10-28] MEDS: AMINO ACIDS 5%/D15W/E-LYTES/CA 1,000 ML with MULTIVITAMINS-12 INJ VIAL 1 1.25 ML, MULTI... 40 ML IV CONT (14:11)
[2024-10-28] MEDS: FAT EMULSIONS IV 20% 250 ML 20.3 ML IVPB (14:15)
--- NOTE | 2024-10-28 15:34 | P.PNGS_ITS ---
Progress Note: A&P Assessment and Plan (1) Mass of colon: Code(s): K63.89 - Other specified diseases of intestine Status: Inactive Assessment and Plan: Postop day 1 following laparoscopic diverting loop ileostomy with omental biopsy, and placement of right subclavian Robert cath. Pathology pending. She was advanced to full liquids. She isn't eating much yet. Will continue TPN for today and hopefully stop tomorrow if intake improves. Will add Ensure supplements. Encouraged having her get up to the chair this afternoon and try ambulating with staff. Wound care nurses consulted and plan on doing ostomy teaching tomorrow. I spoke with care coordination, who has [facility] set up for her discharge for ostomy care. Plan I have discussed the patient's case and plan of care with Dr. Otero. Subjective Subjective Date/Time Seen: 10/28/24 15:34 Post Op day: 1 (Laparoscopic diverting loop ileostomy, Laparoscopic incisional omental biopsy, Placement of right subclavian vein robert catheter with intraoperative fluoroscopy) Interval history: Patient reports postop pain at her ileostomy, which is being controlled with oral analgesics. She is tolerating getting up to the commode but has not been ambulating much yet. She has not had much oral intake yet today. Denies nausea or vomiting. No other complaints at this time. Exam Const: General: comfortable and no acute distress Orientation/consciousness: patient oriented x3 GI: Inspection: non-distended, incision (trocar incisions dry and glue intact, no erythema) and other (Loop ileostomy c scant serosanguineous drainage, stoma slightly dusky) GI Palp: Yes Soft to palpation, Yes Tenderness to palpation present (GI) (near ileostomy) and No Guarding due to palpation present (GI) Auscultation: Hypoactive bowel sounds present Objective Data Vital Signs Vital Signs: Vital Signs - 24 hr 10/27/24 16:00 10/27/24 17:37 10/27/24 18:38 Temperature Pulse Rate 83 96 Respiratory Rate Blood Pressure Pulse Oximetry 96 Oxygen Delivery Room Air 10/27/24 20:00 10/27/24 20:00 10/27/24 21:06 Temperature 97.6 F Pulse Rate 90 89 Respiratory Rate 16 Blood Pressure 137/65 Pulse Oximetry 94 Oxygen Delivery Room Air 10/27/24 23:51 10/28/24 00:00 10/28/24 04:00 Temperature 97.1 F L Pulse Rate 92 84 88 Respiratory Rate 16 Blood Pressure 156/67 H Pulse Oximetry 94 Oxygen Delivery 10/28/24 05:45 10/28/24 06:02 10/28/24 07:15 Temperature 97.0 F L 98.6 F Pulse Rate 85 85 88 Respiratory Rate 18 18 Blood Pressure 152/74 H 146/58 H Pulse Oximetry 96 93 Oxygen Delivery 10/28/24 08:00 10/28/24 08:00 10/28/24 08:08 Temperature 98 F Pulse Rate 87 89 Respiratory Rate 16 Blood Pressure 145/54 H Pulse Oximetry 93 93 Oxygen Delivery Room Air 10/28/24 12:00 10/28/24 12:00 10/28/24 12:01 Temperature 97.3 F L Pulse Rate 90 92 93 Respiratory Rate 18 18 Blood Pressure 170/72 H 170/72 H Pulse Oximetry 91 91 Oxygen Delivery Intake/Output Intake/Output: Intake & Output 10/25/24 10/26/24 10/27/24 10/28/24 23:59 23:59 23:59 23:59 Intake Total 750 2152.5 1425.3 1841.3 Output Total 240 Balance 750 2152.5 1425.3 1601.3 Meds/Results Medications: Active Medications Generic Name Dose Route Start Last Admin Trade Name Freq PRN Reason Stop Dose Admin Acetaminophen 650 mg 10/23/24 11:03 10/27/24 07:02 Acetaminophen 325 Mg Tablet PO 650 mg Q4H PRN Administration Mild Pain (1-3) or Fever Amlodipine Besylate 5 mg 10/23/24 09:00 10/28/24 08:52 Amlodipine Besylate 5 Mg Tablet PO 5 mg DAILY FLORINDA Administration Artificial Tears 1 drop 10/27/24 15:06 10/27/24 15:23 Artificial Tears Ophth Soln 15 Ml Bottle EACH EYE 1 drop QID PRN Administration Dry Eye(s) Artificial Tears 1 drop 10/27/24 16:48 Artificial Tears Ophth Soln 15 Ml Bottle EACH EYE Q2H PRN Dry Eye(s) Aspirin 81 mg 10/28/24 09:00 10/28/24 09:00 Aspirin 81 Mg Chewable Tablet PO 81 mg DAILY FLORINDA Administration Benzocaine 1 lozenge 10/23/24 18:37 10/26/24 17:07 Benzocaine/Menthol (*Bkc) 18 Ea Lozenge PO 1 lozenge PRN PRN Administration Sore Throat Ezetimibe 10 mg 10/23/24 09:00 10/28/24 08:51 Ezetimibe 10 Mg Tablet PO 10 mg DAILY FLORINDA Administration Heparin Sodium (Porcine) 5,000 units 10/24/24 21:00 10/28/24 08:48 Heparin Sodium 5,000 Units/Ml Vial SUB-Q 5,000 units Q12HR FLORINDA Administration Hydrochlorothiazide 12.5 mg 10/23/24 09:00 10/28/24 08:54 Hydrochlorothiazide 12.5 Mg Capsule PO 12.5 mg QAM FLORINDA Administration Dextrose 1,000 mls @ 50 mls/hr 10/24/24 09:09 Dextrose 10% IV CONT .Q20H PRN if PN is interrupted Multivitamins 1.25 ml/ 1,002.5 mls @ 40 mls/hr 10/25/24 14:00 10/28/24 14:11 Multivitamins 1.25 ml/ Amino IV CONT 40 mls/hr Acids/Electrolytes/Dextrose .Q24H FLORINDA Administration Protocol Fat Emulsion Intravenous 250 mls @ 20.833 mls/hr 10/25/24 14:00 10/28/24 14:15 Lipids 20% IVPB 20.3 mls/hr Q24H FLORINDA Administration Ketorolac Tromethamine 1 drop 10/28/24 09:00 10/28/24 12:44 Ketorolac 0.5% Op Soln 5 Ml Bottle AFFCTD EYE 10/31/24 16:59 Not Given QID FLORINDA Losartan Potassium 100 mg 10/23/24 09:00 10/28/24 08:50 Losartan Potassium 100 Mg Tablet PO 100 mg DAILY FLORINDA Administration Metoprolol Succinate 50 mg 10/24/24 06:00 10/28/24 06:02 Metoprolol Succinate Ext Rel 50 Mg Tabcr PO 50 mg Q12H FLORINDA Administration Morphine Sulfate 2 mg 10/23/24 11:03 10/23/24 11:35 Morphine Sulfate (*Crx) 2 Mg/Ml Inj IV PUSH 2 mg Q2H PRN Administration Pain Rated 7-10 Ondansetron HCl 4 mg 10/22/24 16:46 Ondansetron Inj 4 Mg/2 Ml Vial IV PUSH Q6H PRN Nausea And Vomiting Oxycodone/Acetaminophen 1 tablet 10/23/24 09:36 10/28/24 11:04 Oxycodone/Acetaminophen (*Crx) 5-325 Mg Tablet PO 1 tablet Q6H PRN Administration Pain Rated 7-10 Potassium Chloride 40 meq 10/26/24 09:00 10/28/24 11:29 Potassium Chloride 20 Meq Er Tablet PO 40 meq DAILY FLORINDA Administration Pravastatin Sodium 40 mg 10/23/24 09:00 10/28/24 08:55 Pravastatin Sodium 20 Mg Tablet PO 40 mg DAILY FLORINDA Administration Sodium Chloride 10 ml 10/25/24 14:00 10/28/24 14:15 Central Line Flush IV PUSH 10 ml Q8HR FLORINDA Administration Sodium Chloride 10 ml 10/25/24 08:24 Central Line Flush IV PUSH PRN PRN with TPN bag changes Sodium Chloride 20 ml 10/25/24 08:24 Central Line Flush IV PUSH PRN PRN after blood draws Radiology Results: ITS Impressions Venous Doppler Study 10/21/24 15:46 IMPRESSION: 1. No deep venous thrombosis in the right lower limb. Chest CT 10/23/24 20:15 IMPRESSION: Pretracheal lymphadenopathy, otherwise unremarkable intrathoracic findings. Moderate pneumoperitoneum concerning for interval bowel perforation. Results reported telephonically to Jessica Rocha RN by Dr. Sales at 8:23 PM on 10/23/2024. Abdomen/Pelvis CT 10/23/24 21:37 IMPRESSION: Moderate pneumoperitoneum concerning for large bowel perforation. A definite bowel wall defect is not identified. Candidate location at the hepatic flexure based on the presence of a slightly increased amount of pericolonic mesenteric gas bubbles. Persistent stricture of the transverse colon with slight interval decompression of the dilated proximal large bowel. 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 Abdomen Ultrasound 10/24/24 17:08 IMPRESSION: Aborted omental biopsy secondary to free air within the abdomen, precluding adequate visualization. Chest X-Ray 10/27/24 13:01 IMPRESSION: Mild pulmonary vascular congestion with patchy opacification of the left mid to lower lung field. Supportive devices in position (as detailed above) and ready for immediate use. Labs Labs: Laboratory Results - last 24 hr 10/27/24 10/27/24 10/28/24 18:27 23:39 05:31 WBC RBC Hgb Hct MCV MCH MCHC RDW Plt Count MPV Immature Gran % (Auto) Neut % (Auto) Lymph % (Auto) Baker % (Auto) Eos % (Auto) Baso % (Auto) Lymph # (Auto) Baker # (Auto) Eos # (Auto) Baso # (Auto) Abs Immat Gran (auto) Absolute Neuts (auto) Absolute Nucleated RBC Nucleated RBC % Sodium Potassium Chloride Carbon Dioxide Anion Gap BUN Creatinine Estim Creat Clear Calc Estimated GFR Glucose POC Capillary Glucose 247 H 255 H 226 H Calcium Phosphorus Total Bilirubin AST ALT Alkaline Phosphatase Total Protein Albumin 10/28/24 10/28/24 06:11 11:50 WBC 17.1 H RBC 3.09 L Hgb 8.9 L Hct 26.9 L MCV 87.1 MCH 28.8 MCHC 33.1 RDW 12.8 Plt Count 324 MPV 10.0 Immature Gran % (Auto) 0.6 H Neut % (Auto) 82.6 H Lymph % (Auto) 9.9 L Baker % (Auto) 6.6 Eos % (Auto) 0.1 Baso % (Auto) 0.2 Lymph # (Auto) 1.69 Baker # (Auto) 1.1 H Eos # (Auto) 0.0 Baso # (Auto) 0.0 Abs Immat Gran (auto) 0.10 H Absolute Neuts (auto) 14.1 H Absolute Nucleated RBC 0.000 Nucleated RBC % 0.0 Sodium 133 L Potassium 4.0 Chloride 97 L Carbon Dioxide 29 Anion Gap 7 BUN 12 Creatinine 0.47 L Estim Creat Clear Calc 98 Estimated GFR > 60 Glucose 199 H POC Capillary Glucose 226 H Calcium 8.1 L Phosphorus 3.2 Total Bilirubin 0.5 AST 20 ALT 15 Alkaline Phosphatase 67 Total Protein 6.0 L Albumin 3.0 L
[2024-10-28 23:47] LABS: Glucose Point of Care 234 mg/dl (65-105)
[2024-10-29] VITALS (11 sets, daily range): BP systolic 137–150; BP diastolic 56–74; PULSE 85–109; RESP 16–18; TEMP 36.2–36.5; O2SAT 91–98
[2024-10-29 05:42] LABS: Glucose Point of Care 222 mg/dl (65-105)
[2024-10-29] MEDS: CENTRAL LINE FLUSH 10 ML IV PUSH ×3 (05:48→20:01)
[2024-10-29] MEDS: METOPROLOL SUCCINATE EXT REL 50 MG TABCR PO ×2 (05:48→17:25)
[2024-10-29 06:16] LABS: Basophils Percent Auto 0.3 % (0.2-1.2); Eosinophils Absolute Auto 0.4 K/mm3 (0-0.3); Hematocrit 26.9 % (37.0-47.0); Hemoglobin 8.7 g/dL (12.0-15.0); Immature Granulocyte Absolute 0.08 K/mm3 (0.00-0.031); Immature Granulocyte Percent A 0.6 % (0-0.5); Lymphocytes Absolute Auto 1.92 K/mm3 (0.9-3.2); Lymphocytes Percent Auto 14.7 % (18.3-44.2); Mean Corpuscular HGB Conc 32.3 g/dl (32-36); Mean Corpuscular Hemoglobin 28.3 pg (26-34); Mean Corpuscular Volume 87.6 fl (80-100); Mean Platelet Volume 9.8 fl (7.4-10.4); Monocytes Absolute Auto 1.1 K/mm3 (0.1-0.6); Monocytes Percent Auto 8.6 % (2.6-8.5); Neutrophils Absolute Auto 9.5 K/mm3 (1.3-6.7); Neutrophils Percent Auto 72.8 % (45.5-73.1); Platelet Count Result 316 k/mm3 (150-375); Red Blood Count 3.07 M/mm3 (4.2-5.4); Red Cell Distribution Width 13.1 % (11.5-14.5); White Blood Count 13.1 K/mm3 (4.5-10.0)
[2024-10-29 06:38] LABS: Alanine Aminotransferase 16 U/L (6-35); Albumin Level 3.1 g/dL (3.5-5.1); Alkaline Phosphatase 87 U/L (38-126); Anion Gap 6 mmol/L (4-12); Aspartate Amino Transferase 21 U/L (14-36); Bilirubin,Total 0.5 mg/dL (0.2-1.3); Blood Urea Nitrogen 12 mg/dL (7-17); Calcium 8.7 mg/dL (8.4-10.2); Carbon Dioxide 30 mmol/L (22-30); Chloride 97 mmol/L (98-107); Estimated CRCL calculation 102 ml/min; Estimated Glomerular Filt Rate > 60; Glucose 175 mg/dL (65-110); Potassium 4.4 mmol/L (3.4-5.0); Sodium 133 mmol/L (137-145)
[2024-10-29] MEDS: oxyCODONE/ACETAMINOPHEN (*CRX) 5-325 MG TABLET 1 TABLET PO ×2 (07:43→19:59)
[2024-10-29] MEDS: EZETIMIBE 10 MG TABLET PO (08:26)
[2024-10-29] MEDS: ASPIRIN 81 MG CHEWABLE TABLET PO (08:26)
[2024-10-29] MEDS: LOSARTAN POTASSIUM 100 MG TABLET PO (08:26)
[2024-10-29] MEDS: amLODIPine BESYLATE 5 MG TABLET PO (08:26)
[2024-10-29] MEDS: PRAVASTATIN SODIUM 20 MG TABLET 40 MG PO (08:26)
[2024-10-29] MEDS: HEPARIN SODIUM 5,000 UNITS/ML VIAL 5000 UNITS SUB-Q ×2 (08:26→19:59)
[2024-10-29] MEDS: hydroCHLOROthiazide 12.5 MG CAPSULE PO (08:26)
[2024-10-29 11:40] LABS: Glucose Point of Care 224 mg/dl (65-105)
--- NOTE | 2024-10-29 12:27 | P.PNIM_ITS ---
Progress Note: A&P Assessment and Plan (1) Bowel obstruction: Code(s): K56.609 - Unspecified intestinal obstruction, unspecified as to partial versus complete obstruction Status: Inactive Assessment and Plan: * Admit to regular medical floor * GI consulted * WBC improved from 14.3> 10.2>9.4>10.7>10.6>12.8>12.4>17.1. * Carcinoembryronic Antigen 0.7. * Colonoscopy done 10/23/24 showed: a few diverticula were present in the sigmoid colon. The diverticula were not actively bleeding. A partially-obstructing, large-size friable, infiltrative, malignant appearing, circumferential mass was observed in the transverse colon, size about 3-4 cm, noted small lumen probably 7-8 mm diameter and unable to traverse with scope and reach cecum (original plan was to perform a full colonoscopy). Multiple biopsies were taken. A few small-size internal hemorrhoids were seen in the rectum. The hemorrhoids were not actively bleeding. * Endoscopic diagnosis: Diverticulosis without perforation or abscess without bleeding (K57.30), Malignant appearing colonic mass at transverse colon (C18.4), and Internal hemorrhoids (K64.8). * Surgery following. * Dr. Otero 10/23/24 wrote in plan: Patient has a malignant-appearing stricture mass effect in proximal transverse and hepatic flexure of the colon. Biopsies were obtained and colonoscopy and sent to pathology. It will be least 3 days we get a pathology result back. However by imaging as well as laparoscopic description and evidence of mild aortocaval lymphadenopathy this appears to be consistent with a colon cancer. There is some thickened omentum in the right upper quadrant up against the abdominal wall which may represent omentum. After reviewing the CT scan with the radiologist she feels that this can be biopsied with ultrasound guidance. I have ordered this to be done for tomorrow in Radiology. If this shows advanced disease with at least omental metastasis in the patient may be a candidate for resection and HIPEC. Will discuss with Surgical Oncology surgeons [place] and refer if appropriate. For now stay on clear liquids. Albumin is 3.8 so would not start on TPN just yet. * US biopsy of abdomen retroperitoneal unable to be completed on 10/24/24. * TPN was started on 10/25/24. Albumin 3.0 today. * 2/3/25 laparoscopic diverting loop ileostomy with omental biopsy, and placement of right subclavian Robert cath. * 10/28/24 wound care to teach ostomy training. (2) Abdominal pain: Code(s): R10.9 - Unspecified abdominal pain Status: Acute Assessment and Plan: * Likely secondary to partial obstruction * Supportive care 10/29/24: * Secondary to #1. S/P diverting ostomy in presence of colon cancer w/mets to omentum. * Follow up with Dr. Buchanan as outpt upon discharge. * Surgery managing along with medicine. * PRN pain control and anti-emetics. * PPN to be managed by Surgery. * Pt slowly increasing her po intake. * Ostomy teaching completed. * Ostomy noted with good output. (3) Nausea and vomiting in adult: Code(s): R11.2 - Nausea with vomiting, unspecified Status: Resolved Assessment and Plan: * Ondansetron 4 mg ivp q 6 PRN. (4) Stricture intestinal: Code(s): K56.699 - Other intestinal obstruction unspecified as to partial versus complete obstruction Status: Acute Assessment and Plan: * Suspicious for malignancy. 10/29/24: * See #1 and 2 (5) Hypokalemia: Code(s): E87.6 - Hypokalemia Status: Resolved Assessment and Plan: * Potassium 4.0. * Potassium 40 meq PO daily. * Monitor labs. 10/29/24: * Resolved (6) Back pain: Code(s): M54.9 - Dorsalgia, unspecified Status: Acute Assessment and Plan: * Acetaminophen 650 mg PO q 4 PRN. Time Spent With Patient Time with patient: 15 - 25 minutes Subjective Date/time seen: 10/29/24 1140 Interval history: Pt evaluated at bedside and found to be in no acute distress. She states she is still sore with getting up and moving out of bed. She is being followed by surgery and her PPN will be turned off today at 1400. She plans on discharge to home and follow up with Dr. Buchanan as outpt to arrange her Oncological care. No new symptoms or complaints today. Review of Systems Review of Systems: All systems reviewed & are unremarkable except as noted in HPI and below Exam Const: General: comfortable and no acute distress HENMT: Mouth: Yes moist mucous membranes Eyes: General: appearance normal, both eyes and all related structures Neck: Neck: supple and no JVD Resp: Effort & Inspection: normal respiratory effort Auscultation: clear to auscultation bilaterally Cardio: Rate: regular rate Rhythm: regular rhythm Heart sounds: no gallops, no murmurs and no rubs GI: Inspection: distended GI Palp: Yes Soft to palpation Auscultation: normal bowel sounds Other: Ostomy site intact with draining stool. Skin: General skin exam: normal color, no rashes or lesions noted and no erythema Lesions: no lesions noted Rashes: no rashes noted Other: Surgical incision without s/s of infection or dehiscence. Neuro: Speech: normal speech Motor exam (neuro): Normal motor muscle tone present throughout Other: Generalized weakness, expected after her surgery. Extrem: General: normal to inspection and no edema Psych: Mental Status: mental status grossly normal Affect: normal affect Objective Data Vital Signs Vital Signs: Vital Signs - 24 hr 10/28/24 16:00 10/28/24 16:00 10/28/24 16:54 Temperature 97.7 F Pulse Rate 92 91 90 Respiratory Rate 16 Blood Pressure 153/62 H Pulse Oximetry 92 Oxygen Delivery 10/28/24 20:00 10/28/24 20:00 10/28/24 21:04 Temperature 97.4 F L Pulse Rate 90 95 Respiratory Rate 18 Blood Pressure 125/66 Pulse Oximetry 93 Oxygen Delivery Room Air 10/29/24 00:00 10/29/24 04:00 10/29/24 05:26 Temperature 97.1 F L Pulse Rate 89 85 91 Respiratory Rate 18 Blood Pressure 150/73 H Pulse Oximetry 95 Oxygen Delivery 10/29/24 05:48 10/29/24 08:00 10/29/24 08:00 Temperature Pulse Rate 86 88 Respiratory Rate Blood Pressure Pulse Oximetry Oxygen Delivery Room Air Intake/Output Intake/Output: Intake & Output 10/26/24 10/27/24 10/28/24 10/29/24 23:59 23:59 23:59 23:59 Intake Total 2152.5 1425.3 2167.3 924 Output Total 540 Balance 2152.5 1425.3 1627.3 924 Meds/Results Medications: Active Medications Generic Name Dose Route Start Last Admin Trade Name Freq PRN Reason Stop Dose Admin Acetaminophen 650 mg 10/23/24 11:03 10/27/24 07:02 Acetaminophen 325 Mg Tablet PO 650 mg Q4H PRN Administration Mild Pain (1-3) or Fever Amlodipine Besylate 5 mg 10/23/24 09:00 10/29/24 08:26 Amlodipine Besylate 5 Mg Tablet PO 5 mg DAILY FLORINDA Administration Artificial Tears 1 drop 10/27/24 15:06 10/27/24 15:23 Artificial Tears Ophth Soln 15 Ml Bottle EACH EYE 1 drop QID PRN Administration Dry Eye(s) Artificial Tears 1 drop 10/27/24 16:48 Artificial Tears Ophth Soln 15 Ml Bottle EACH EYE Q2H PRN Dry Eye(s) Aspirin 81 mg 10/28/24 09:00 10/29/24 08:26 Aspirin 81 Mg Chewable Tablet PO 81 mg DAILY FLORINDA Administration Benzocaine 1 lozenge 10/23/24 18:37 10/26/24 17:07 Benzocaine/Menthol (*Bkc) 18 Ea Lozenge PO 1 lozenge PRN PRN Administration Sore Throat Ezetimibe 10 mg 10/23/24 09:00 10/29/24 08:26 Ezetimibe 10 Mg Tablet PO 10 mg DAILY FLORINDA Administration Heparin Sodium (Porcine) 5,000 units 10/24/24 21:00 10/29/24 08:26 Heparin Sodium 5,000 Units/Ml Vial SUB-Q 5,000 units Q12HR FLORINDA Administration Hydrochlorothiazide 12.5 mg 10/23/24 09:00 10/29/24 08:26 Hydrochlorothiazide 12.5 Mg Capsule PO 12.5 mg QAM FLORINDA Administration Dextrose 1,000 mls @ 50 mls/hr 10/24/24 09:09 Dextrose 10% IV CONT .Q20H PRN if PN is interrupted Multivitamins 1.25 ml/ 1,002.5 mls @ 40 mls/hr 10/25/24 14:00 10/28/24 16:20 Multivitamins 1.25 ml/ Amino IV CONT 10/29/24 13:59 20 mls/hr Acids/Electrolytes/Dextrose .Q24H FLORINDA Infusion Protocol Ketorolac Tromethamine 1 drop 10/28/24 09:00 10/29/24 12:12 Ketorolac 0.5% Op Soln 5 Ml Bottle AFFCTD EYE 10/31/24 16:59 Not Given QID FLORINDA Losartan Potassium 100 mg 10/23/24 09:00 10/29/24 08:26 Losartan Potassium 100 Mg Tablet PO 100 mg DAILY FLORINDA Administration Metoprolol Succinate 50 mg 10/24/24 06:00 10/29/24 05:48 Metoprolol Succinate Ext Rel 50 Mg Tabcr PO 50 mg Q12H FLORINDA Administration Morphine Sulfate 2 mg 10/23/24 11:03 10/23/24 11:35 Morphine Sulfate (*Crx) 2 Mg/Ml Inj IV PUSH 2 mg Q2H PRN Administration Pain Rated 7-10 Ondansetron HCl 4 mg 10/22/24 16:46 Ondansetron Inj 4 Mg/2 Ml Vial IV PUSH Q6H PRN Nausea And Vomiting Oxycodone/Acetaminophen 1 tablet 10/23/24 09:36 10/29/24 07:43 Oxycodone/Acetaminophen (*Crx) 5-325 Mg Tablet PO 1 tablet Q6H PRN Administration Pain Rated 7-10 Potassium Chloride 40 meq 10/26/24 09:00 10/29/24 12:09 Potassium Chloride 20 Meq Er Tablet PO Not Given DAILY FLORINDA Pravastatin Sodium 40 mg 10/23/24 09:00 10/29/24 08:26 Pravastatin Sodium 20 Mg Tablet PO 40 mg DAILY FLORINDA Administration Sodium Chloride 10 ml 10/25/24 14:00 10/29/24 05:48 Central Line Flush IV PUSH 10 ml Q8HR FLORINDA Administration Sodium Chloride 10 ml 10/25/24 08:24 Central Line Flush IV PUSH PRN PRN with TPN bag changes Sodium Chloride 20 ml 10/25/24 08:24 Central Line Flush IV PUSH PRN PRN after blood draws Radiology Results: ITS Impressions Venous Doppler Study 10/21/24 15:46 IMPRESSION: 1. No deep venous thrombosis in the right lower limb. Chest CT 10/23/24 20:15 IMPRESSION: Pretracheal lymphadenopathy, otherwise unremarkable intrathoracic findings. Moderate pneumoperitoneum concerning for interval bowel perforation. Results reported telephonically to Jessica Rocha RN by Dr. Sales at 8:23 PM on 10/23/2024. Abdomen/Pelvis CT 10/23/24 21:37 IMPRESSION: Moderate pneumoperitoneum concerning for large bowel perforation. A definite bowel wall defect is not identified. Candidate location at the hepatic flexure based on the presence of a slightly increased amount of pericolonic mesenteric gas bubbles. Persistent stricture of the transverse colon with slight interval decompression of the dilated proximal large bowel. 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 Abdomen Ultrasound 10/24/24 17:08 IMPRESSION: Aborted omental biopsy secondary to free air within the abdomen, precluding adequate visualization. Chest X-Ray 10/27/24 13:01 IMPRESSION: Mild pulmonary vascular congestion with patchy opacification of the left mid to lower lung field. Supportive devices in position (as detailed above) and ready for immediate use. Labs Labs: Laboratory Results - last 24 hr 10/28/24 10/29/24 10/29/24 23:44 05:39 06:03 WBC 13.1 H RBC 3.07 L Hgb 8.7 L Hct 26.9 L MCV 87.6 MCH 28.3 MCHC 32.3 RDW 13.1 Plt Count 316 MPV 9.8 Immature Gran % (Auto) 0.6 H Neut % (Auto) 72.8 Lymph % (Auto) 14.7 L Rooks % (Auto) 8.6 H Eos % (Auto) 3.0 Baso % (Auto) 0.3 Lymph # (Auto) 1.92 Rooks # (Auto) 1.1 H Eos # (Auto) 0.4 H Baso # (Auto) 0.0 Abs Immat Gran (auto) 0.08 H Absolute Neuts (auto) 9.5 H Absolute Nucleated RBC 0.000 Nucleated RBC % 0.0 Sodium 133 L Potassium 4.4 Chloride 97 L Carbon Dioxide 30 Anion Gap 6 BUN 12 Creatinine 0.45 L Estim Creat Clear Calc 102 Estimated GFR > 60 Glucose 175 H POC Capillary Glucose 234 H 222 H Calcium 8.7 Total Bilirubin 0.5 AST 21 ALT 16 Alkaline Phosphatase 87 Total Protein 6.0 L Albumin 3.1 L 10/29/24 11:36 WBC RBC Hgb Hct MCV MCH MCHC RDW Plt Count MPV Immature Gran % (Auto) Neut % (Auto) Lymph % (Auto) Rooks % (Auto) Eos % (Auto) Baso % (Auto) Lymph # (Auto) Rooks # (Auto) Eos # (Auto) Baso # (Auto) Abs Immat Gran (auto) Absolute Neuts (auto) Absolute Nucleated RBC Nucleated RBC % Sodium Potassium Chloride Carbon Dioxide Anion Gap BUN Creatinine Estim Creat Clear Calc Estimated GFR Glucose POC Capillary Glucose 224 H Calcium Total Bilirubin AST ALT Alkaline Phosphatase Total Protein Albumin Quality VTE Prophylaxis VTE prophylaxis: pharmacologic ordered
--- NOTE | 2024-10-29 14:49 | P.PNGS_ITS ---
Progress Note: A&P Assessment and Plan (1) Mass of colon: Code(s): K63.89 - Other specified diseases of intestine Status: Inactive Assessment and Plan: Postop day 2 following laparoscopic diverting loop ileostomy with omental biopsy, and placement of right subclavian Robert cath. Pathology showed undifferentiated carcinoma. She has been advanced to a low fiber diet and is tolerating her diet well. Loop ileostomy is now functioning. Wound care nurses have educated the patient on ostomy care. She is set up for [facility] on discharge. Will repeat labs tomorrow morning. If she remains stable, then she can be discharged home tomorrow with home health and follow-up with Dr. Otero in the office in 2 weeks. She will also need to follow-up with Dr. Buchanan after discharge to discuss chemotherapy. Plan I have discussed the patient's case and plan of care with Dr. Otero. Subjective Subjective Date/Time Seen: 10/29/24 14:49 Post Op day: 2 (Laparoscopic diverting loop ileostomy, Laparoscopic incisional omental biopsy, Placement of right subclavian vein robert catheter with intraoperative fluoroscopy) Patient reports: no new complaints, feels better, tolerating a regular diet and afebrile Interval history: Patient reports feeling better today. She still has some incisional pain near her ostomy when getting up out of bed, but otherwise not really having any abdominal pain today. She denies nausea or vomiting. She is eating better today with more oral intake. Her ostomy is now functioning. Wound care nurses helped with ostomy teaching/education earlier today with her and her sister. She has no specific complaints at the time of my exam. Exam Const: General: comfortable and no acute distress Orientation/consciousness: patient oriented x3 Chest: Other: Right portacath incision dry and glue intact, mild ecchymosis in this area but no erythema or drainage GI: Inspection: non-distended and incision (port incisions dry and glue intact, no erythema or drainage) GI Palp: Yes Soft to palpation, Yes Tenderness to palpation present (GI) (mild tenderness near ileostomy) and No Guarding due to palpation present (GI) Auscultation: normal bowel sounds Other: Loop ileostomy with liquid brown output and stoma slightly dark pink/purple with some superficial slough but appears viable Objective Data Vital Signs Vital Signs: Vital Signs - 24 hr 10/28/24 16:00 10/28/24 16:00 10/28/24 16:54 Temperature 97.7 F Pulse Rate 92 91 90 Respiratory Rate 16 Blood Pressure 153/62 H Pulse Oximetry 92 Oxygen Delivery 10/28/24 20:00 10/28/24 20:00 10/28/24 21:04 Temperature 97.4 F L Pulse Rate 90 95 Respiratory Rate 18 Blood Pressure 125/66 Pulse Oximetry 93 Oxygen Delivery Room Air 10/29/24 00:00 10/29/24 04:00 10/29/24 05:26 Temperature 97.1 F L Pulse Rate 89 85 91 Respiratory Rate 18 Blood Pressure 150/73 H Pulse Oximetry 95 Oxygen Delivery 10/29/24 05:48 10/29/24 08:00 10/29/24 08:00 Temperature Pulse Rate 86 88 Respiratory Rate Blood Pressure Pulse Oximetry Oxygen Delivery Room Air 10/29/24 12:00 10/29/24 13:49 Temperature 97.6 F Pulse Rate 109 H 98 Respiratory Rate 16 Blood Pressure 137/74 Pulse Oximetry 98 Oxygen Delivery Intake/Output Intake/Output: Intake & Output 10/26/24 10/27/24 10/28/24 10/29/24 23:59 23:59 23:59 23:59 Intake Total 2152.5 1425.3 2167.3 924 Output Total 540 Balance 2152.5 1425.3 1627.3 924 Meds/Results Medications: Active Medications Generic Name Dose Route Start Last Admin Trade Name Freq PRN Reason Stop Dose Admin Acetaminophen 650 mg 10/23/24 11:03 10/27/24 07:02 Acetaminophen 325 Mg Tablet PO 650 mg Q4H PRN Administration Mild Pain (1-3) or Fever Amlodipine Besylate 5 mg 10/23/24 09:00 10/29/24 08:26 Amlodipine Besylate 5 Mg Tablet PO 5 mg DAILY FLORINDA Administration Artificial Tears 1 drop 10/27/24 15:06 10/27/24 15:23 Artificial Tears Ophth Soln 15 Ml Bottle EACH EYE 1 drop QID PRN Administration Dry Eye(s) Artificial Tears 1 drop 10/27/24 16:48 Artificial Tears Ophth Soln 15 Ml Bottle EACH EYE Q2H PRN Dry Eye(s) Aspirin 81 mg 10/28/24 09:00 10/29/24 08:26 Aspirin 81 Mg Chewable Tablet PO 81 mg DAILY FLORINDA Administration Benzocaine 1 lozenge 10/23/24 18:37 10/26/24 17:07 Benzocaine/Menthol (*Bkc) 18 Ea Lozenge PO 1 lozenge PRN PRN Administration Sore Throat Ezetimibe 10 mg 10/23/24 09:00 10/29/24 08:26 Ezetimibe 10 Mg Tablet PO 10 mg DAILY FLORINDA Administration Heparin Sodium (Porcine) 5,000 units 10/24/24 21:00 10/29/24 08:26 Heparin Sodium 5,000 Units/Ml Vial SUB-Q 5,000 units Q12HR FLORINDA Administration Hydrochlorothiazide 12.5 mg 10/23/24 09:00 10/29/24 08:26 Hydrochlorothiazide 12.5 Mg Capsule PO 12.5 mg QAM FLORINDA Administration Dextrose 1,000 mls @ 50 mls/hr 10/24/24 09:09 Dextrose 10% IV CONT .Q20H PRN if PN is interrupted Ketorolac Tromethamine 1 drop 10/28/24 09:00 10/29/24 12:12 Ketorolac 0.5% Op Soln 5 Ml Bottle AFFCTD EYE 10/31/24 16:59 Not Given QID [facility] Losartan Potassium 100 mg 10/23/24 09:00 10/29/24 08:26 Losartan Potassium 100 Mg Tablet PO 100 mg DAILY FLORINDA Administration Metoprolol Succinate 50 mg 10/24/24 06:00 10/29/24 05:48 Metoprolol Succinate Ext Rel 50 Mg Tabcr PO 50 mg Q12H FLORINDA Administration Morphine Sulfate 2 mg 10/23/24 11:03 10/23/24 11:35 Morphine Sulfate (*Crx) 2 Mg/Ml Inj IV PUSH 2 mg Q2H PRN Administration Pain Rated 7-10 Ondansetron HCl 4 mg 10/22/24 16:46 Ondansetron Inj 4 Mg/2 Ml Vial IV PUSH Q6H PRN Nausea And Vomiting Oxycodone/Acetaminophen 1 tablet 10/23/24 09:36 10/29/24 07:43 Oxycodone/Acetaminophen (*Crx) 5-325 Mg Tablet PO 1 tablet Q6H PRN Administration Pain Rated 7-10 Potassium Chloride 40 meq 10/26/24 09:00 10/29/24 12:09 Potassium Chloride 20 Meq Er Tablet PO Not Given DAILY FLORINDA Pravastatin Sodium 40 mg 10/23/24 09:00 10/29/24 08:26 Pravastatin Sodium 20 Mg Tablet PO 40 mg DAILY FLORINDA Administration Sodium Chloride 10 ml 10/25/24 14:00 10/29/24 05:48 Central Line Flush IV PUSH 10 ml Q8HR FLORINDA Administration Sodium Chloride 10 ml 10/25/24 08:24 Central Line Flush IV PUSH PRN PRN with TPN bag changes Sodium Chloride 20 ml 10/25/24 08:24 Central Line Flush IV PUSH PRN PRN after blood draws Radiology Results: ITS Impressions Venous Doppler Study 10/21/24 15:46 IMPRESSION: 1. No deep venous thrombosis in the right lower limb. Chest CT 10/23/24 20:15 IMPRESSION: Pretracheal lymphadenopathy, otherwise unremarkable intrathoracic findings. Moderate pneumoperitoneum concerning for interval bowel perforation. Results reported telephonically to Jessica Rocha RN by Dr. Sales at 8:23 PM on 10/23/2024. Abdomen/Pelvis CT 10/23/24 21:37 IMPRESSION: Moderate pneumoperitoneum concerning for large bowel perforation. A definite bowel wall defect is not identified. Candidate location at the hepatic flexure based on the presence of a slightly increased amount of pericolonic mesenteric gas bubbles. Persistent stricture of the transverse colon with slight interval decompression of the dilated proximal large bowel. 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 Abdomen Ultrasound 10/24/24 17:08 IMPRESSION: Aborted omental biopsy secondary to free air within the abdomen, precluding adequate visualization. Chest X-Ray 10/27/24 13:01 IMPRESSION: Mild pulmonary vascular congestion with patchy opacification of the left mid to lower lung field. Supportive devices in position (as detailed above) and ready for immediate use. Labs Labs: Laboratory Results - last 24 hr 10/28/24 10/29/24 10/29/24 23:44 05:39 06:03 WBC 13.1 H RBC 3.07 L Hgb 8.7 L Hct 26.9 L MCV 87.6 MCH 28.3 MCHC 32.3 RDW 13.1 Plt Count 316 MPV 9.8 Immature Gran % (Auto) 0.6 H Neut % (Auto) 72.8 Lymph % (Auto) 14.7 L [place] % (Auto) 8.6 H Eos % (Auto) 3.0 Baso % (Auto) 0.3 Lymph # (Auto) 1.92 [place] # (Auto) 1.1 H Eos # (Auto) 0.4 H Baso # (Auto) 0.0 Abs Immat Gran (auto) 0.08 H Absolute Neuts (auto) 9.5 H Absolute Nucleated RBC 0.000 Nucleated RBC % 0.0 Sodium 133 L Potassium 4.4 Chloride 97 L Carbon Dioxide 30 Anion Gap 6 BUN 12 Creatinine 0.45 L Estim Creat Clear Calc 102 Estimated GFR > 60 Glucose 175 H POC Capillary Glucose 234 H 222 H Calcium 8.7 Total Bilirubin 0.5 AST 21 ALT 16 Alkaline Phosphatase 87 Total Protein 6.0 L Albumin 3.1 L 10/29/24 11:36 WBC RBC Hgb Hct MCV MCH MCHC RDW Plt Count MPV Immature Gran % (Auto) Neut % (Auto) Lymph % (Auto) Henry % (Auto) Eos % (Auto) Baso % (Auto) Lymph # (Auto) Henry # (Auto) Eos # (Auto) Baso # (Auto) Abs Immat Gran (auto) Absolute Neuts (auto) Absolute Nucleated RBC Nucleated RBC % Sodium Potassium Chloride Carbon Dioxide Anion Gap BUN Creatinine Estim Creat Clear Calc Estimated GFR Glucose POC Capillary Glucose 224 H Calcium Total Bilirubin AST ALT Alkaline Phosphatase Total Protein Albumin
[2024-10-29 18:09] LABS: Glucose Point of Care 231 mg/dl (65-105)
[2024-10-29 22:16] LABS: Glucose Point of Care 281 mg/dl (65-105)
[2024-10-30] VITALS (7 sets, daily range): BP systolic 138–145; BP diastolic 69–82; PULSE 82–99; RESP 16; TEMP 36.2–36.3; O2SAT 94
[2024-10-30 05:18] LABS: Basophils Absolute Auto 0.1 K/mm3 (0.0-0.1); Basophils Percent Auto 0.4 % (0.2-1.2); Eosinophils Absolute Auto 0.4 K/mm3 (0-0.3); Hematocrit 28.8 % (37.0-47.0); Hemoglobin 9.3 g/dL (12.0-15.0); Immature Granulocyte Absolute 0.08 K/mm3 (0.00-0.031); Immature Granulocyte Percent A 0.6 % (0-0.5); Lymphocytes Absolute Auto 2.41 K/mm3 (0.9-3.2); Lymphocytes Percent Auto 17.6 % (18.3-44.2); Mean Corpuscular HGB Conc 32.3 g/dl (32-36); Mean Corpuscular Hemoglobin 28.5 pg (26-34); Mean Corpuscular Volume 88.3 fl (80-100); Mean Platelet Volume 9.7 fl (7.4-10.4); Monocytes Absolute Auto 1.1 K/mm3 (0.1-0.6); Monocytes Percent Auto 7.8 % (2.6-8.5); Neutrophils Absolute Auto 9.7 K/mm3 (1.3-6.7); Neutrophils Percent Auto 70.6 % (45.5-73.1); Platelet Count Result 376 k/mm3 (150-375); Red Blood Count 3.26 M/mm3 (4.2-5.4); Red Cell Distribution Width 13.2 % (11.5-14.5); White Blood Count 13.7 K/mm3 (4.5-10.0)
[2024-10-30 05:33] LABS: Alanine Aminotransferase 18 U/L (6-35); Albumin Level 3.5 g/dL (3.5-5.1); Alkaline Phosphatase 108 U/L (38-126); Anion Gap 9 mmol/L (4-12); Aspartate Amino Transferase 22 U/L (14-36); Bilirubin,Total 0.7 mg/dL (0.2-1.3); Blood Urea Nitrogen 19 mg/dL (7-17); Carbon Dioxide 30 mmol/L (22-30); Chloride 95 mmol/L (98-107); Estimated CRCL calculation 79 ml/min; Estimated Glomerular Filt Rate > 60; Glucose 212 mg/dL (65-110); Potassium 4.3 mmol/L (3.4-5.0); Sodium 134 mmol/L (137-145)
[2024-10-30] MEDS: METOPROLOL SUCCINATE EXT REL 50 MG TABCR PO (05:56)
[2024-10-30] MEDS: CENTRAL LINE FLUSH 10 ML IV PUSH (05:57)
[2024-10-30 06:07] LABS: Glucose Point of Care 228 mg/dl (65-105)
--- NOTE | 2024-10-30 08:12 | P.DS_ITS ---
DS: Admitting Diagnosis Discharge Date 10/30/24 Admitting Diagnosis Abdominal Pain, Bowel Obstruction, Intestinal Stricture DS: Discharge Diagnosis Discharge Diagnosis (1) Bowel obstruction: Code(s): K56.609 - Unspecified intestinal obstruction, unspecified as to partial versus complete obstruction Status: Inactive Assessment and Plan: * Admit to regular medical floor * GI consulted * WBC improved from 14.3> 10.2>9.4>10.7>10.6>12.8>12.4>17.1. * Carcinoembryronic Antigen 0.7. * Colonoscopy done 10/23/24 showed: a few diverticula were present in the sigmoid colon. The diverticula were not actively bleeding. A partially-obstructing, large-size friable, infiltrative, malignant appearing, circumferential mass was observed in the transverse colon, size about 3-4 cm, noted small lumen probably 7-8 mm diameter and unable to traverse with scope and reach cecum (original plan was to perform a full colonoscopy). Multiple biopsies were taken. A few small-size internal hemorrhoids were seen in the rectum. The hemorrhoids were not actively bleeding. * Endoscopic diagnosis: Diverticulosis without perforation or abscess without bleeding (K57.30), Malignant appearing colonic mass at transverse colon (C18.4), and Internal hemorrhoids (K64.8). * Surgery following. * Dr. Otero 10/23/24 wrote in plan: Patient has a malignant-appearing stricture mass effect in proximal transverse and hepatic flexure of the colon. Biopsies were obtained and colonoscopy and sent to pathology. It will be least 3 days we get a pathology result back. However by imaging as well as laparoscopic description and evidence of mild aortocaval lymphadenopathy this appears to be consistent with a colon cancer. There is some thickened omentum in the right upper quadrant up against the abdominal wall which may represent omentum. After reviewing the CT scan with the radiologist she feels that this can be biopsied with ultrasound guidance. I have ordered this to be done for tomorrow in Radiology. If this shows advanced disease with at least omental metastasis in the patient may be a candidate for resection and HIPEC. Will discuss with Surgical Oncology surgeons [place] and refer if appropriate. For now stay on clear liquids. Albumin is 3.8 so would not start on TPN just yet. * US biopsy of abdomen retroperitoneal unable to be completed on 10/24/24. * TPN was started on 10/25/24. Albumin 3.0 today. * 10/27/24 laparoscopic diverting loop ileostomy with omental biopsy, and placement of right subclavian Robert cath. * 10/28/24 wound care to teach ostomy training. (2) Abdominal pain: Code(s): R10.9 - Unspecified abdominal pain Status: Acute Assessment and Plan: * Likely secondary to partial obstruction * Supportive care 10/29/24: * Secondary to #1. S/P diverting ostomy in presence of colon cancer w/mets to omentum. * Follow up with Dr. Buchanan as outpt upon discharge. * Surgery managing along with medicine. * PRN pain control and anti-emetics. * PPN to be managed by Surgery. * Pt slowly increasing her po intake. * Ostomy teaching completed. * Ostomy noted with good output. 10/30/24: * Pt doing well s/p surgery. * She has had ostomy education and is having adequate output from ostomy. * Will have outpt pain control and anti-emetics. * Tolerating oral intake and PPN has been turned off. * Will follow up with Dr. Buchanan as outpt and also Dr. Otero, Surgery. (3) Nausea and vomiting in adult: Code(s): R11.2 - Nausea with vomiting, unspecified Status: Resolved Assessment and Plan: * Ondansetron 4 mg ivp q 6 PRN. (4) Stricture intestinal: Code(s): K56.699 - Other intestinal obstruction unspecified as to partial versus complete obstruction Status: Acute Assessment and Plan: * Suspicious for malignancy. 10/29/24: * See #1 and 2 (5) Hypokalemia: Code(s): E87.6 - Hypokalemia Status: Resolved Assessment and Plan: * Potassium 4.0. * Potassium 40 meq PO daily. * Monitor labs. 10/29/24: * Resolved (6) Back pain: Code(s): M54.9 - Dorsalgia, unspecified Status: Acute Assessment and Plan: * Acetaminophen 650 mg PO q 4 PRN. DS: Summary Hospital Course Reason for hospitalization: Colon stricture causing abdominal pain Hospital Course: This very pleasant 68 year old female pt with PMH of HTN, Obesity, and UTI came to the ER at [place] on 10/21/24 with complaints of abdominal pain. The pain was noted on the right side of the abdomen and had no accompanying symptoms. Workup performed in the ER with CT Scan showed a colonic stricture suspicious for malignancy, with with nodularity of the peritoneum in the upper abdomen suspicious for peritoneal carcinomatosis. She was admitted to the hospital for further workup and management. She had a sigmoidoscopy on 10/23/24 that showed Diverticulosis without perforation or abscess without bleeding, a malignant appearing colonic mass at the transverse colon and internal hemorrhoids. Biopsies were obtained during colonoscopy and sent for path review. 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 Surgery took to the OR on 10/27/24 for a loop ileostomy and port placement and initiated TPN. Dr. Buchanan was consulted for Oncological management, and he will plan for PET scan after discharge from hospital, follow up for continued care and potential referral for HIPEC in the setting that pt has metastatic disease with peritoneal carcinomatosis. Her post-operative period has been positive with active Ostomy output, stable VS and she has slowly began to eat low residue foods without further complications. She has had an approp riate amount of post-operative pain and it has been managed well. She has been weaned off of PPN and has maintained an adequate input and output with stable VS and also with stable and normal labs. She was treated how to care for and change her ostomy and has returned demonstration. She has been cleared by surgery for discharge, and she is now cleared by medicine for discharge. She will follow up with Dr. Buchanan [facility] for further management and treatment. Status at Discharge Cognitive/behavioral status at discharge: At baseline Functional status at discharge: independent ambulation Overall status at discharge: patient is progressing back to baseline Time Spent with Patient Time attestation: Total time spent providing and/or coordinating discharge services: Time spent: Greater than 30 minutes Specific discharge activities: discharge, follow up, medications Exam Const: General: comfortable and no acute distress HENMT: Mouth: Yes moist mucous membranes Eyes: General: appearance normal, both eyes and all related structures Neck: Neck: supple and no JVD Resp: Effort & Inspection: normal respiratory effort Auscultation: clear to auscultation bilaterally Cardio: Rate: regular rate Rhythm: regular rhythm Heart sounds: no gallops, no murmurs and no rubs GI: Inspection: distended Auscultation: normal bowel sounds Other: Ostomy site intact with draining stool. Skin: General skin exam: normal color, no rashes or lesions noted, no erythema, No lesion and No rashes Lesions: no lesions noted Rashes: no rashes noted Other: Surgical incision without s/s of infection or dehiscence. Neuro: Speech: normal speech Motor exam (neuro): Normal motor muscle tone present throughout Other: Generalized weakness, expected after her surgery. Extrem: General: normal to inspection and no edema Psych: Mental Status: mental status grossly normal Affect: normal affect DS: Data Data Completed and Pending Completed studies during hospitalization: Pending at discharge 10/23/24 10:05 Surgical [PTH] Routine 10/27/24 10:28 Surgical [PTH] Routine ITS Impressions Venous Doppler Study 10/21/24 15:46 IMPRESSION: 1. No deep venous thrombosis in the right lower limb. Abdomen/Pelvis CT 10/21/24 20:42 IMPRESSION: 1. Persistent stricture of the transverse colon with bowel obstruction suspicious for primary malignancy. 2. Nodularity of the peritoneum in the upper abdomen suspicious for peritoneal carcinomatosis. 3. Mild aortocaval lymphadenopathy suspicious for metastatic disease. Chest CT 10/23/24 20:15 IMPRESSION: Pretracheal lymphadenopathy, otherwise unremarkable intrathoracic findings. Moderate pneumoperitoneum concerning for interval bowel perforation. Results reported telephonically to Jessica Rocha RN by Dr. Sales at 8:23 PM on 10/23/2024. Abdomen/Pelvis CT 10/23/24 21:37 IMPRESSION: Moderate pneumoperitoneum concerning for large bowel perforation. A definite bowel wall defect is not identified. Candidate location at the hepatic flexure based on the presence of a slightly increased amount of pericolonic mesenteric gas bubbles. Persistent stricture of the transverse colon with slight interval decompression of the dilated proximal large bowel. 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 Abdomen Ultrasound 10/24/24 17:08 IMPRESSION: Aborted omental biopsy secondary to free air within the abdomen, precluding adequate visualization. Chest X-Ray 10/27/24 13:01 IMPRESSION: Mild pulmonary vascular congestion with patchy opacification of the left mid to lower lung field. Supportive devices in position (as detailed above) and ready for immediate use. Labs on day of discharge: Labs from last 24 hours 10/30/24 10/30/24 10/29/24 05:59 05:10 22:11 WBC 13.7 H RBC 3.26 L Hgb 9.3 L Hct 28.8 L MCV 88.3 MCH 28.5 MCHC 32.3 RDW 13.2 Plt Count 376 H MPV 9.7 Immature Gran % (Auto) 0.6 H Neut % (Auto) 70.6 Lymph % (Auto) 17.6 L [place] % (Auto) 7.8 Eos % (Auto) 3.0 Baso % (Auto) 0.4 Lymph # (Auto) 2.41 [place] # (Auto) 1.1 H Eos # (Auto) 0.4 H Baso # (Auto) 0.1 Abs Immat Gran (auto) 0.08 H Absolute Neuts (auto) 9.7 H Absolute Nucleated RBC 0.000 Nucleated RBC % 0.0 Sodium 134 L Potassium 4.3 Chloride 95 L Carbon Dioxide 30 Anion Gap 9 BUN 19 H Creatinine 0.60 L Estim Creat Clear Calc 79 Estimated GFR > 60 Glucose 212 H POC Capillary Glucose 228 H 281 H Calcium 9.0 Total Bilirubin 0.7 AST 22 ALT 18 Alkaline Phosphatase 108 Total Protein 7.0 Albumin 3.5 10/29/24 10/29/24 17:56 11:36 WBC RBC Hgb Hct MCV MCH MCHC RDW Plt Count MPV Immature Gran % (Auto) Neut % (Auto) Lymph % (Auto) [place] % (Auto) Eos % (Auto) Baso % (Auto) Lymph # (Auto) [place] # (Auto) Eos # (Auto) Baso # (Auto) Abs Immat Gran (auto) Absolute Neuts (auto) Absolute Nucleated RBC Nucleated RBC % Sodium Potassium Chloride Carbon Dioxide Anion Gap BUN Creatinine Estim Creat Clear Calc Estimated GFR Glucose POC Capillary Glucose 231 H 224 H Calcium Total Bilirubin AST ALT Alkaline Phosphatase Total Protein Albumin Discharge Plan Discharge Attending physician on discharge: Simin Arredondo Consulting providers: Taz Otero; Abdulaziz Buchanan Discharging Clinician: Simin Arredondo Anticipated Discharge Date/Time: 10/30/24 08:40 Patient Disposition: Home Health Service Activity: january shower Diet: regular Discharge Instructions: Per Care Coordination. Patient to have [facility] RN teaching [phone]. They will contact patient to schedule first appointment. No lifting more than 10 to 15 lb for 2 weeks. Okay to shower. Regular diet as tolerated. Try to use Ensure supplements as well. Patient to call Dr. Buchanan office to schedule her chemotherapy treatments. Patient to call my office for an appointment to be seen in 10 to 14 days. Patient Instructions: Antibiotic Form Patient Language: Hungarian Stand Alone Forms: General Discharge Information Follow-up/Referrals: Abdulaziz Buchanan MD [Physician] - (Call Dr. Buchanan office for an appointment to start chemotherapy.) Corwin,Emperatriz Myers MD [Primary Care Provider] - Call for Appointment Taz Otero MD [Physician] - (Follow-up Dr. Otero the office in 10 to 14 days) Discharge Medications: Continued oxycodone-acetaminophen 7.5-325 mg tablet 1 tablet PO Q6H PRN (Reason: pain) 5 Days Qty: 20 0RF amlodipine 5 mg tablet 5 mg PO DAILY ezetimibe 10 mg tablet 10 mg PO DAILY losartan-hydrochlorothiazide 100-12.5 mg tablet 1 tablet PO DAILY metoprolol succinate 50 mg tablet extended release 24 hr 50 mg PO Q12H pravastatin 40 mg tablet 40 mg PO DAILY aspirin 81 mg tablet,chewable 81 mg PO DAILY Discontinued potassium chloride 10 mEq tablet extended release 10 meq PO DAILY levofloxacin 750 mg tablet 750 mg PO DAILY 11 Days Qty: 11 0RF metronidazole 500 mg tablet 500 mg PO Q8H 11 Days Qty: 33 0RF Date of admission: 10/21/24 22:18 Primary Care Provider: CorwinEmperatriz Admitting Provider: Rosita Bauman V. Attending physician on admission: Simin Arredondo Condition: Stable Quality VTE Prophylaxis VTE prophylaxis: pharmacologic ordered Hospitalist MIPS Heart Failure (Exclusion) Patient has history of Heart Transplant or Left Ventricular Assistive Device?: No IF YES, STOP HERE Heart Failure (Qualifier) Patient has current or prior documentation of LVEF less than or equal to 40%, or mod/servere depressed LVSF?: No IF NO, STOP HERE
[2024-10-30] MEDS: EZETIMIBE 10 MG TABLET PO (09:02)
[2024-10-30] MEDS: LOSARTAN POTASSIUM 100 MG TABLET PO (09:02)
[2024-10-30] MEDS: PRAVASTATIN SODIUM 20 MG TABLET 40 MG PO (09:02)
[2024-10-30] MEDS: ASPIRIN 81 MG CHEWABLE TABLET PO (09:02)
[2024-10-30] MEDS: hydroCHLOROthiazide 12.5 MG CAPSULE PO (09:02)
[2024-10-30] MEDS: HEPARIN SODIUM 5,000 UNITS/ML VIAL 5000 UNITS SUB-Q (09:03)
[2024-10-30] MEDS: amLODIPine BESYLATE 5 MG TABLET PO (09:03)
[2024-10-30] MEDS: POTASSIUM CHLORIDE 20 MEQ ER TABLET 40 MEQ PO (09:03)
--- NOTE | 2024-10-30 11:00 | WPDPN ---
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 There was extension and metastatic disease to the omentum which was biopsied. There was suggestion of lymph node spread on CT scan to the aortocaval nodes. She is now tolerating diet and her ostomy is functioning well. She can be discharged from the hospital today as far general surgery is concerned. Will need to make sure that home health is set up to help the patient with changing her ostomy bag at home until she feels comfortable to doing herself. Her PICC line can be removed prior to discharge. She will need to follow-up Dr. Buchanan in his oncology clinic to start her chemotherapy treatments. She can follow-up see me in my office in 10 to 14 days. Subjective Date/time seen: 10/30/24 11:00 Interval history: Patient is doing well today. She has a decent appetite is tolerating solid diet. No fever. Exam Resp: Other: The right-sided upper chest port site incision is healing well. The port is in place. Minor ecchymosis but no hematoma. GI: Other: Abdomen is soft and nondistended. Right-sided loop diverting ileostomy is functioning well. Ostomy bar in place. Laparoscopic port site incisions are healing well without any redness or drainage. Objective Data Vital Signs Vital Signs: Vital Signs - 24 hr 10/29/24 12:00 10/29/24 13:49 10/29/24 16:00 Temperature 36.4 C Pulse Rate 109 H 98 107 H Respiratory Rate 16 Blood Pressure 137/74 Pulse Oximetry 98 Oxygen Delivery 10/29/24 17:25 10/29/24 19:33 10/29/24 20:00 Temperature 36.5 C Pulse Rate 90 95 Respiratory Rate 16 Blood Pressure 146/56 H Pulse Oximetry 91 Oxygen Delivery Room Air 10/29/24 20:00 10/30/24 00:00 10/30/24 03:48 Temperature 36.3 C L Pulse Rate 95 99 94 Respiratory Rate 16 Blood Pressure 145/82 H Pulse Oximetry 94 Oxygen Delivery 10/30/24 04:00 10/30/24 05:56 10/30/24 09:00 Temperature 36.2 C L Pulse Rate 99 90 88 Respiratory Rate 16 Blood Pressure 138/69 Pulse Oximetry 94 Oxygen Delivery 10/30/24 09:03 10/30/24 09:03 Temperature Pulse Rate 82 Respiratory Rate Blood Pressure Pulse Oximetry 94 Oxygen Delivery Room Air Intake/Output Intake/Output: Intake & Output 10/27/24 10/28/24 10/29/24 10/30/24 23:59 23:59 23:59 23:59 Intake Total 1425.3 2167.3 924 480 Output Total 540 300 Balance 1425.3 1627.3 624 480 Meds/Results Medications: Active Medications Generic Name Dose Route Start Last Admin Trade Name Freq PRN Reason Stop Dose Admin Acetaminophen 650 mg 10/23/24 11:03 10/27/24 07:02 Acetaminophen 325 Mg Tablet PO 650 mg Q4H PRN Administration Mild Pain (1-3) or Fever Amlodipine Besylate 5 mg 10/23/24 09:00 10/30/24 09:03 Amlodipine Besylate 5 Mg Tablet PO 5 mg DAILY FLORINDA Administration Artificial Tears 1 drop 10/27/24 15:06 10/27/24 15:23 Artificial Tears Ophth Soln 15 Ml Bottle EACH EYE 1 drop QID PRN Administration Dry Eye(s) Artificial Tears 1 drop 10/27/24 16:48 Artificial Tears Ophth Soln 15 Ml Bottle EACH EYE Q2H PRN Dry Eye(s) Aspirin 81 mg 10/28/24 09:00 10/30/24 09:02 Aspirin 81 Mg Chewable Tablet PO 81 mg DAILY FLORINDA Administration Benzocaine 1 lozenge 10/23/24 18:37 10/26/24 17:07 Benzocaine/Menthol (*Bkc) 18 Ea Lozenge PO 1 lozenge PRN PRN Administration Sore Throat Ezetimibe 10 mg 10/23/24 09:00 10/30/24 09:02 Ezetimibe 10 Mg Tablet PO 10 mg DAILY FLORINDA Administration Heparin Sodium (Porcine) 5,000 units 10/24/24 21:00 10/30/24 09:03 Heparin Sodium 5,000 Units/Ml Vial SUB-Q 5,000 units Q12HR FLORINDA Administration Hydrochlorothiazide 12.5 mg 10/23/24 09:00 10/30/24 09:02 Hydrochlorothiazide 12.5 Mg Capsule PO 12.5 mg QAM FLORINDA Administration Dextrose 1,000 mls @ 50 mls/hr 10/24/24 09:09 Dextrose 10% IV CONT .Q20H PRN if PN is interrupted Ketorolac Tromethamine 1 drop 10/28/24 09:00 10/30/24 09:04 Ketorolac 0.5% Op Soln 5 Ml Bottle AFFCTD EYE 10/31/24 16:59 Not Given QID [facility] Losartan Potassium 100 mg 10/23/24 09:00 10/30/24 09:02 Losartan Potassium 100 Mg Tablet PO 100 mg DAILY FLORINDA Administration Metoprolol Succinate 50 mg 10/24/24 06:00 10/30/24 05:56 Metoprolol Succinate Ext Rel 50 Mg Tabcr PO 50 mg Q12H FLORINDA Administration Morphine Sulfate 2 mg 10/23/24 11:03 10/23/24 11:35 Morphine Sulfate (*Crx) 2 Mg/Ml Inj IV PUSH 2 mg Q2H PRN Administration Pain Rated 7-10 Ondansetron HCl 4 mg 10/22/24 16:46 Ondansetron Inj 4 Mg/2 Ml Vial IV PUSH Q6H PRN Nausea And Vomiting Oxycodone/Acetaminophen 1 tablet 10/23/24 09:36 10/29/24 19:59 Oxycodone/Acetaminophen (*Crx) 5-325 Mg Tablet PO 1 tablet Q6H PRN Administration Pain Rated 7-10 Potassium Chloride 40 meq 10/26/24 09:00 10/30/24 09:03 Potassium Chloride 20 Meq Er Tablet PO 40 meq DAILY FLORINDA Administration Pravastatin Sodium 40 mg 10/23/24 09:00 10/30/24 09:02 Pravastatin Sodium 20 Mg Tablet PO 40 mg DAILY FLORINDA Administration Sodium Chloride 10 ml 10/25/24 14:00 10/30/24 05:57 Central Line Flush IV PUSH 10 ml Q8HR FLORINDA Administration Sodium Chloride 10 ml 10/25/24 08:24 Central Line Flush IV PUSH PRN PRN with TPN bag changes Sodium Chloride 20 ml 10/25/24 08:24 Central Line Flush IV PUSH PRN PRN after blood draws Radiology Results: ITS Impressions Venous Doppler Study 10/21/24 15:46 IMPRESSION: 1. No deep venous thrombosis in the right lower limb. Chest CT 10/23/24 20:15 IMPRESSION: Pretracheal lymphadenopathy, otherwise unremarkable intrathoracic findings. Moderate pneumoperitoneum concerning for interval bowel perforation. Results reported telephonically to Jessica Rocha RN by Dr. Sales at 8:23 PM on 10/23/2024. Abdomen/Pelvis CT 10/23/24 21:37 IMPRESSION: Moderate pneumoperitoneum concerning for large bowel perforation. A definite bowel wall defect is not identified. Candidate location at the hepatic flexure based on the presence of a slightly increased amount of pericolonic mesenteric gas bubbles. Persistent stricture of the transverse colon with slight interval decompression of the dilated proximal large bowel. 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 Abdomen Ultrasound 10/24/24 17:08 IMPRESSION: Aborted omental biopsy secondary to free air within the abdomen, precluding adequate visualization. Chest X-Ray 10/27/24 13:01 IMPRESSION: Mild pulmonary vascular congestion with patchy opacification of the left mid to lower lung field. Supportive devices in position (as detailed above) and ready for immediate use. Labs Labs: Laboratory Results - last 24 hr 10/29/24 10/29/24 10/29/24 11:36 17:56 22:11 WBC RBC Hgb Hct MCV MCH MCHC RDW Plt Count MPV Immature Gran % (Auto) Neut % (Auto) Lymph % (Auto) [place] % (Auto) Eos % (Auto) Baso % (Auto) Lymph # (Auto) [place] # (Auto) Eos # (Auto) Baso # (Auto) Abs Immat Gran (auto) Absolute Neuts (auto) Absolute Nucleated RBC Nucleated RBC % Sodium Potassium Chloride Carbon Dioxide Anion Gap BUN Creatinine Estim Creat Clear Calc Estimated GFR Glucose POC Capillary Glucose 224 H 231 H 281 H Calcium Total Bilirubin AST ALT Alkaline Phosphatase Total Protein Albumin 10/30/24 10/30/24 05:10 05:59 WBC 13.7 H RBC 3.26 L Hgb 9.3 L Hct 28.8 L MCV 88.3 MCH 28.5 MCHC 32.3 RDW 13.2 Plt Count 376 H MPV 9.7 Immature Gran % (Auto) 0.6 H Neut % (Auto) 70.6 Lymph % (Auto) 17.6 L [place] % (Auto) 7.8 Eos % (Auto) 3.0 Baso % (Auto) 0.4 Lymph # (Auto) 2.41 [place] # (Auto) 1.1 H Eos # (Auto) 0.4 H Baso # (Auto) 0.1 Abs Immat Gran (auto) 0.08 H Absolute Neuts (auto) 9.7 H Absolute Nucleated RBC 0.000 Nucleated RBC % 0.0 Sodium 134 L Potassium 4.3 Chloride 95 L Carbon Dioxide 30 Anion Gap 9 BUN 19 H Creatinine 0.60 L Estim Creat Clear Calc 79 Estimated GFR > 60 Glucose 212 H POC Capillary Glucose 228 H Calcium 9.0 Total Bilirubin 0.7 AST 22 ALT 18 Alkaline Phosphatase 108 Total Protein 7.0 Albumin 3.5
[2024-10-30 11:57] LABS: Glucose Point of Care 198 mg/dl (65-105)
--- NOTE | 2024-10-30 12:15 | PCPTNOTE ---
pt reports she is discharging soon and has been walking around the room independently, reports she does not have any therapy needs at this time, PT discharged entered
== END 2024-10-30 13:11 | disposition home health service (06) | DRG 330 ==
LOC: ANHED 21:37 → ANH3MEDSUR 23:24
PROVIDERS: Internal Medicine Gastroenterology; Nurse Practitioner Family; Surgery; Admitting Provider Internal Medicine; Emergency Provider Emergency Medicine; PCP Internal Medicine Gastroenterology; Visit Provider Nurse Practitioner Adult Health
PROC: 0DJD8ZZ Inspection of Lower Intestinal Tract, Via Natural or Artificial Opening Endoscopic (ICD-10-PCS; CPT 45378; principal; 2024-10-23 14:30)
PROC: 0DTF4ZZ Resection of Right Large Intestine, Percutaneous Endoscopic Approach (ICD-10-PCS; CPT 44204; principal; 2024-10-27 09:30)
PROC: 0D1B4Z4 Bypass Ileum to Cutaneous, Percutaneous Endoscopic Approach (ICD-10-PCS; 2024-10-27 09:30)
DX: C18.4 Malignant neoplasm of transverse colon (principal); C77.2 Secondary and unspecified malignant neoplasm of intra-abdominal lymph nodes; C78.6 Secondary malignant neoplasm of retroperitoneum and peritoneum; K91.71 Accidental puncture and laceration of a digestive system organ or structure during a digestive system procedure; K66.8 Other specified disorders of peritoneum; E87.6 Hypokalemia; I10 Essential (primary) hypertension; Z85.3 Personal history of malignant neoplasm of breast; Z85.41 Personal history of malignant neoplasm of cervix uteri; Z79.82 Long term (current) use of aspirin
CPT/HCPCS: 36415; 36569; 71260; 74177; 76705; 77001; 80048; 80053; 81001; 82378; 82948; 83735; 84100; 84466; 84478; 85025; 85610; 85730; 86850; 86900; 86901; 87040; 88305; 88307; 88342; 93005; 93971; 96361; 96365; 96375; 99285; A9270; C1751; C1788; J0330; J0690; J1100; J1171; J1644; J1836; J1885; J2003; J2004; J2250; J2270; J2405; J2543; J2704; J3010; J3480; J7030; J7040; J7120; Q9967

== ENCOUNTER 2024-11-03 06:38 | Inpatient (IN) | payer MEDICARE, SELFPAY ==
[2024-11-03] VITALS (42 sets, daily range): BP systolic 60–127; BP diastolic 42–78; PULSE 90–115; RESP 14–30; TEMP 36.6–37.2; O2SAT 90–100; BMI 36.1
--- NOTE | ~2024-11-03 | XR_ITS ---
Portable chest x-ray Comparison: 10/27/2024 Clinical History: Leukocytosis Findings: Stable right-sided Mediport. There are central congestive change and probable mild interst itial edema. Cardiomediastinal silhouette is stable. Bones and soft tissues are unremarkable. Impression: Central congestive change and mild interstitial edema pattern. Stable Mediport. Stable elevation right hemidiaphragm. Reviewed, dictated and finalized at location . ID [employer] Impression: Central congestive change and mild interstitial edema pattern. Stable Mediport. Stable elevation right hemidiaphragm.
--- NOTE | ~2024-11-03 | CT_ITS ---
CT of the Abdomen and Pelvis: Indication: Abdominal pain Technique: 2.5 mm axial scans were obtained through the abdomen and pelvis following intravenous adm inistration of 100 cc of Omnipaque 350. Dose reduction technique was used on this scan by utilizing a utomated exposure control and iterative reconstruction technique. The dose-length product (DLP) was 8 70.30 mGy-cm. COMPARISON: 10/23/2024 Findings: Scans through the lung bases demonstrate focal groundglass opacity left lung base, possibl y focal atelectasis versus pneumonitis. The liver, spleen, pancreas, adrenals and kidneys are within normal limits. Calcified gallstone prese nt. No evidence of aortic aneurysm. No lymphadenopathy. There is an apparent double barrel right lower quadrant ileostomy. No bowel obstruction evident. Ther e is focal wall thickening and pericolic inflammatory change at the hepatic flexure region of the col on, suspicious for focal colitis or diverticulitis. Possible peritoneal carcinomatosis. No abscess or free air evident. There is a 7.2 x 7.1 cm irregular somewhat hypodense mass in the subcutaneous soft tissues at the region of the ostomy site, most compatible large hematoma. Images through the pelvis were performed. Urinary bladder unremarkable. No pelvic mass seen. Status p ost hysterectomy. No ascites. Impression: Status post interval surgery with right lower quadrant double barrel ileostomy present. There is a 7. 2 x 7.1 cm hematoma in the subcutaneous soft tissues at the ileostomy site. Stable focal wall thickening and adjacent inflammatory change and/or carcinomatosis at the hepatic fl exure the colon. Possible focal wall irregularity at this region. Correlate for focal colitis/diverti culitis or possibly neoplasm. Appearance is similar to prior exam at this region. Cholelithiasis. Focal atelectasis or possibly pneumonitis the left lung base. Reviewed, dictated and finalized at location . [employer] Impression: Status post interval surgery with right lower quadrant double barrel ileostomy present. There is a 7.2 x 7.1 cm hematoma in the subcutaneous soft tissues at t he ileostomy site. Stable focal wall thickening and adjacent inflammatory change and/or carcinomat osis at the hepatic flexure the colon. Possible focal wall irregularity at this region. Correlate for focal colitis/diverticulitis or possibly neoplasm. Appea halina is similar to prior exam at this region. Cholelithiasis. Focal atelectasis or possibly pneumonitis the left lung base.
--- OUTSIDE RECORDS SUMMARY | 2024-11-03 06:41 | XMS_ITS | Data Portability ---
Author Organization [facility] ABILIOAmauri [place] oDmi Address [address] [place] [address] Care Team Providers Care Lab Director Name Role Phone EMPERATRIZ MEYER Primary Care Provider [phone] Assessment No assessment recorded. Plan of Treatment Reminders Order Date Submit Date Provider Last Modified By Organization Details Last Modified Time Details Appointments ANY 15 2024 09:00A M Emperatriz Meyer MD Not available Not available Not available Lab rf (rheumato id factor), serum 2022 023 [facility], [address] [place], [place] [address], [address], [place], [address], 01/11/2023 09:16:24 C reactive protein, QN, serum or plasma 2022 023 [facility], [address], [place], [address], 01/11/2023 09:16:25 erythrocy te sedimenta tion rate by westergre n method 2022 023 [facility], [address] [facility] [address], [address], [place], [address], 01/11/2023 09:16:23 CBC 2022 023 [facility], [address], [address], [place], [address], 01/10/2023 03:39:55 lipid panel, serum 2022 023 [facility], [address], [address], [place], [address], 01/10/2023 03:39:56 vitamin D, 25-hydrox y, total, serum 2022 023 [facility], [address], [address], [place], [address], 01/11/2023 09:16:26 noninvasi ve colorecta l cancer DNA + occult blood screening , QL, stool 2022 023 [facility], [address], [address], [place], [address], 01/08/2023 11:03:49 CMP, serum or plasma 2022 023 [facility], [address] [facility], [address], [place], [address], 01/10/2023 03:39:56 noninvasi ve colorecta l cancer DNA + occult blood screening , QL, stool 2022 023 [facility] ([facility]olog[facility]ard Orders Only), [address], [address], [place], [address], 05/31/2023 03:58:30 vitamin D, 25-hydrox y, total, serum 2022 023 [facility], [address] [facility] [address], [address], [place], [address], 07/17/2023 08:26:35 CMP, serum or plasma 2022 023 [facility], [address], [address], [place], [address], 07/17/2023 06:15:55 lipid panel, serum 2022 023 [facility], [address], [address], [place], [address], 07/17/2023 06:15:54 CBC 2022 023 [facility], [address], [address], [place], [address], 07/17/2023 06:15:56 TSH, ultra-sen sitive, serum 2022 023 [facility], [address], [address], [place], [address], 07/17/2023 08:26:34 HbA1c (hemoglob in A1c), blood 2023 024 [facility], [address], [address], [place], [address], 07/08/2024 08:29:59 vitamin D, 25-hydrox y, total, serum 2023 024 [facility], [address], [address], [place], [address], 07/08/2024 08:30:00 CMP, serum or plasma 2023 024 [facility], [address], [address], [place], [address], 07/08/2024 08:29:58 lipid panel, serum 2023 024 [facility], [address], [address], [place], [address], 07/08/2024 08:29:56 Referral dermatolo gist referral 2023 024 [email or web address] Kirk Hardy MD ([facility], Dermatology), [address] [place], [address], 03/30/2024 01:42:29 Procedures None recorded. Surgeries None recorded. Imaging XR, wrist + hand 2022 023 [facility] ([facility] Sched[facility]), [address] [place], [address], 01/11/2023 02:52:41 MAMMO, screening , bilateral 2022 023 [facility] ([facility] Sched[facility]), [address] [place], [address], 06/05/2023 14:58:34 MAMMO, screening , digital, bilateral - Hx papillary carcinoma left breast [address] (Mammography) , [address], [place], [address], 10/17/2024 09:59:11 Medication Orders ibuprofen 600 mg tablet 2022 023 [facility] [address], [place], [id number], 01/09/2024 09:52:03 losartan 50 mg-hydroc hlorothia zide 12.5 mg tablet 2022 023 [facility], [address], [place], [id number], 01/09/2024 09:52:10 amlodipin e 5 mg tablet 2022 023 [facility], [address], [place], [id number], 05/10/2023 10:36:53 losartan 100 mg-hydroc hlorothia zide 12.5 mg tablet 2022 023 [facility], [address], [place], [id number], 07/10/2023 10:38:22 losartan 100 mg-hydroc hlorothia zide 12.5 mg tablet 2023 [facility] #59015, [address], [place], [id number], 07/07/2024 10:38:53 metoprolo l succinate ER 50 mg tablet,ex tended release 24 hr 2023 [facility] #50846, [address], [place], [id number], 07/07/2024 10:38:53 amlodipin e 5 mg tablet 2023 [facility] #14791, [address], [place], [id number], 07/07/2024 10:38:53 pravastat in 40 mg tablet 2023 [facility] #98087, [address], [place], [id number], 07/07/2024 10:40:07 ezetimibe 10 mg tablet 2023 [facility] #74035, [address], [place], [id number], 07/07/2024 10:38:52 potassium chloride ER 10 mEq tablet,ex tended release 2023 [facility] #43644, [address], [place], [id number], 07/07/2024 10:38:53 Patient TargetsNo targets recorded. Patient Instructions Encounter Date Encounter Id Patient Instructions Last Modified By Organization Details Last Modified Time 01/08/2023 [id number] When You Want to Lose Weight: Care Instructions Not available 01/08/2023 11:03:30 A healthy lifestyle: care instructions Not available 01/08/2023 11:03:30 high cholesterol : care instructions [email or web address] Not available 01/08/2023 11:03:29 learning about high blood pressure [email or web address] Not available 01/08/2023 11:03:30 05/10/2023 [id number] When You Want to Lose Weight: Care Instructions [email or web address] Not available 05/10/2023 10:36:42 A healthy lifestyle: care instructions [email or web address] Not available 05/10/2023 10:36:41 learning about breast cancer screening Not available 05/10/2023 10:36:42 07/10/2023 [id number] back care and preventing injuries: care instructions [email or web address] Not available 07/10/2023 10:37:54 When You Want to Lose Weight: Care Instructions [email or web address] Not available 07/10/2023 10:37:54 A healthy lifestyle: care instructions [email or web address] Not available 07/10/2023 10:37:53 learning about high blood pressure [email or web address] Not available 07/10/2023 10:37:54 high cholesterol : care instructions [email or web address] Not available 07/10/2023 10:37:53 hypokalemia: car e instructions [id number] Not available 07/10/2023 10:37:54 01/09/2024 [id number] back care and preventing injuries: care instructions [email or web address] Not available 01/09/2024 10:35:11 When You Want to Lose Weight: Care Instructions [email or web address] Not available 01/09/2024 10:35:11 high cholesterol : care instructions Not available 01/09/2024 10:35:11 A healthy lifestyle: care instructions Not available 01/09/2024 10:35:11 learning about high blood pressure [email or web address] Not available 01/09/2024 10:35:11 hypokalemia: car e instructions [email or web address] Not available 01/09/2024 10:35:11 07/07/2024 [id number] learning about breast cancer screening [email or web address] Not available 07/07/2024 10:33:31 When You Want to Lose Weight: Care Instructions [email or web address] Not available 07/07/2024 10:33:31 A healthy lifestyle: care instructions Not available 07/07/2024 10:33:31 learning about high blood pressure [email or web address] Not available 07/07/2024 10:33:31 high cholesterol : care instructions [email or web address] Not available 07/07/2024 10:33:31 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 Multiple skin lesions ears, chest Referring Physician: Emperatriz Meyer, Internal Medicine, Encounter Date: 01/09/2024 Results Created Date Observation Date Name Description Value Unit Range Abnormal Flag Note LastModifiedBy Organization Detail LastModifiedTime 01/10/2001/09/2023 LIPID PANEL cholesterol, total 130.6 mg/dL 140.0- 200.0 below low normal Not Available [facility] Department [address] [place] [address], [address], 01/09/2023 19:09:16 01/10/2001/09/2023 LIPID PANEL triglyceride s 120 mg/dL <=150 Not Available [facility] Department [address] [place], [address], 01/09/2023 19:09:16 01/10/2001/09/2023 LIPID PANEL HDL cholesterol 41.1 mg/dL 40.0-1 00.0 Not Available [facility] Department [address] [place], [address], 01/09/2023 19:09:16 01/10/2001/09/2023 LIPID PANEL VLDL cholesterol [place] 24.00 mg/dL 5.00-4 0.00 Not Available [facility] Department [address] [place], [address], 01/09/2023 19:09:16 01/10/20 23 01/09/2023 LIPID PANEL LDL chol calc ([facility]) 67.9 Not Available [facility] Department [address] [place], [address], 01/09/2023 19:09:16 01/10/20 23 01/09/2023 COMP. METAB OLIC PANEL (14) glucose 98 mg/dL 65-99 ANION GP 20.0 mmol/ L N OSMOL 286.0 mOsM/ L N REFER ENCE RANGE : 275.0 -301. 0 Not Available [facility] Department [address] [place], [address], 01/09/2023 19:09:16 01/10/20 23 01/09/2023 COMP. METAB OLIC PANEL (14) BUN 15 mg/dL 8-26 Not Available [facility] Department [address] [place], [address], 01/09/2023 19:09:16 01/10/20 23 01/09/2023 COMP. METAB OLIC PANEL (14) creatinine 0.59 mg/dL 0.50-1 .40 Not Available [facility] Department [address] [place], [address], 01/09/2023 19:09:16 01/10/20 23 01/09/2023 COMP. METAB OLIC PANEL (14) eGFR 99 mL/mi n/1.7 3 >=60 Not Available [facility] Department [address] [place], [address], 01/09/2023 19:09:16 01/10/20 23 01/09/2023 COMP. METAB OLIC PANEL (14) BUN/creatini ne ratio 25.9 Not Available [facility] Department [address] [place], [address], 01/09/2023 19:09:16 01/10/20 23 01/09/2023 COMP. METAB OLIC PANEL (14) sodium 143.0 mmol/ L 136.0- 144.0 Not Available [facility] Department [address] [place], [address], 01/09/2023 19:09:16 01/10/20 23 01/09/2023 COMP. METAB OLIC PANEL (14) potassium 3.8 mmol/ L 3.5-5. 3 Not Available [facility] Department [address] [place], [address], 01/09/2023 19:09:16 01/10/20 23 01/09/2023 COMP. METAB OLIC PANEL (14) chloride 102 mmol/ l 101-11 1 Not Available [facility] Department [address] [place], [address], 01/09/2023 19:09:16 01/10/20 23 01/09/2023 COMP. METAB OLIC PANEL (14) carbon dioxide, total 24.3 mmol/ L 21.0-3 2.0 Not Available [facility] Department [address] [place], [address], 01/09/2023 19:09:16 01/10/20 23 01/09/2023 COMP. METAB OLIC PANEL (14) calcium 10.2 mg/dL 8.2-10 .0 above high normal Not Available [facility] Department [address] [place], [address], 01/09/2023 19:09:16 01/10/20 23 01/09/2023 COMP. METAB OLIC PANEL (14) protein, total 6.8 g/dL 6.7-8. 2 Not Available [facility] Department [address] [place], [address], 01/09/2023 19:09:16 01/10/20 23 01/09/2023 COMP. METAB OLIC PANEL (14) albumin 4.5 g/dL 3.5-5. 5 Not Available [facility] Department [address] [place], [address], 01/09/2023 19:09:16 01/10/20 23 01/09/2023 COMP. METAB OLIC PANEL (14) globulin, total 2.3 g/dL 1.5-4. 5 Not Available [facility] Department [address] [place], [address], 01/09/2023 19:09:16 01/10/20 23 01/09/2023 COMP. METAB OLIC PANEL (14) A/G ratio 2.0 Not Available [facility] Department [address] [place], [address], 01/09/2023 19:09:16 01/10/20 23 01/09/2023 COMP. METAB OLIC PANEL (14) bilirubin, total 1.0 mg/dL 0.0-1. 2 Not Available [facility] Department [address] [place], [address], 01/09/2023 19:09:16 01/10/20 23 01/09/2023 COMP. METAB OLIC PANEL (14) alkaline phosphatase 133.4 IU/L 42.0-1 21.0 above high normal Not Available [facility] Department [address] [place], [address], 01/09/2023 19:09:16 01/10/20 23 01/09/2023 COMP. METAB OLIC PANEL (14) AST (SGOT) 22.3 U/L 10.0-4 2.0 Not Available [facility] Department [address] [place], [address], 01/09/2023 19:09:16 01/10/20 23 01/09/2023 COMP. METAB OLIC PANEL (14) ALT (SGPT) 27.5 U/L 10.0-6 0.0 Not Available [facility] Department [address] [place], [address], 01/09/2023 19:09:16 01/10/20 23 01/09/2023 CBC, PLATE LET, NO DIFFE RENTI AL WBC 7.7 K/uL 3.4-10 .8 Not Available [facility] Department [address] [place], [address], 01/09/2023 19:09:17 01/10/20 23 01/09/2023 CBC, PLATE LET, NO DIFFE RENTI AL RBC 4.7 M/uL 4.2-5. 4 Not Available [facility] Department [address] [place], [address], 01/09/2023 19:09:17 01/10/2001/09/2023 CBC, PLATE LET, NO DIFFE RENTI AL hemoglobin 13.7 g/dL 11.5-1 5.5 Not Available [facility] Department [address] [place], [address], 01/09/2023 19:09:17 01/10/2001/09/2023 CBC, PLATE LET, NO DIFFE RENTI AL hematocrit 41.6 % 36.0-4 8.0 Not Available [facility] Department [address] [place], [address], 01/09/2023 19:09:17 01/10/2001/09/2023 CBC, PLATE LET, NO DIFFE RENTI AL MCV 89 fL 80-95 Not Available [facility] Department [address] [place], [address], 01/09/2023 19:09:17 01/10/20 23 01/09/2023 CBC, PLATE LET, NO DIFFE RENTI AL MCH 29 pg 27-32 Not Available [facility] Department [address] [place], [address], 01/09/2023 19:09:17 01/10/2001/09/2023 CBC, PLATE LET, NO DIFFE RENTI AL MCHC 33 g/dL 32-36 Not Available [facility] Department [address] [place], [address], 01/09/2023 19:09:17 01/10/20 23 01/09/2023 CBC, PLATE LET, NO DIFFE RENTI AL RDW 12.1 % 11.5-1 4.5 Not Available [facility] Department [address] [place], [address], 01/09/2023 19:09:17 01/10/20 23 01/09/2023 CBC, PLATE LET, NO DIFFE RENTI AL platelets 173 K/uL 155-37 9 MPV 10.5 FL 8.9-1 2.7 N Not Available [facility] Department [address] [place], [address], 01/09/2023 19:09:17 01/10/20 23 01/09/2023 CBC, PLATE LET, NO DIFFE RENTI AL NRBC 0 % Not Available [facility] Department [address] [facility], [place], [address], 01/09/2023 19:09:17 01/10/20 23 01/11/2023 SEDIM ENTAT ION RATE- WESTE RGREN sedimentatio n rate-westerg jumana 12 mm/HR 0-40 Not Available [facility] ([facility]) [address] [place], [address], 01/11/2023 09:16:23 01/10/20 23 01/10/2023 RHEUM ATOID FACTO R (RF) rheumatoid factor (rf) <10.0 IU/mL <14.0 Not Available [facility] ([facility]) [address] [place], [address], 01/11/2023 09:16:24 01/10/2001/10/2023 C-ESTEFANI CTIVE PROTE IN, QUANT C-reactive protein, quant 6 mg/L 0-10 Not Available [facility] ([facility]) [address] [place], [address], 01/11/2023 09:16:25 01/10/20 23 01/10/2023 VITAM IN [...] Florencio sahu DC: The Natio nal [facility] Press . 2. Arielle sharif MF, Olga pena [place], Fletcher off-F caroline i DUMONT, et al. Evalu ation , treat ment, and preve ntion of vitam in D defic iency : an Endoc rine Socie ty clini [place] pract ice guide line. JCEM. 2010; 96(7) :1911 -30. Not Available [facility] ([facility]) [address] [place], [address], 01/11/2023 09:16:26 01/11/20 23 01/11/2023 OCCUL T BLOOD , FECAL , IA occult blood, fecal, ia Negati ve negati ve Not Available [facility] ([facility]) [address] [place], [address], 01/11/2023 15:10:31 05/22/20 23 05/22/2023 COLOG UARD [...] is negat redd. TEST DESCR IPTIO N: [place] site algor ithmi c julio sis of [...] years or older , who are at [facility] for color ectal cance r (CRC) . Colog uard has been appro yao for use by the [place]. FDA. The perfo rmanc e of Colog uard was estab lishe d in a cross secti onal study of [facility] adult s aged 50-84 . Colog [...] of 10,00 0 indiv idual s at [facility] for color ectal cance r who [...] at www.c domingo robert.c om. Not Available [facility] (Cologuard Orders Only) [address], [place], [address], 05/31/2023 03:58:30 07/16/2007/16/2023 LIPID PANEL cholesterol, total 128 mg/dL 100-19 9 Not Available [facility] Department [address] [place], [address], 07/17/2023 06:15:54 07/16/2007/16/2023 LIPID PANEL triglyceride s 123 mg/dL 0-149 Not Available [facility] Department [address] [place], [address], 07/17/2023 06:15:54 07/16/2007/16/2023 LIPID PANEL HDL cholesterol 42 mg/dL 40-999 Not Available [facility] Department [address] [place], [address], 07/17/2023 06:15:54 07/16/2007/16/2023 LIPID PANEL VLDL cholesterol [place] 25 mg/dL 5-40 Not Available [facility] Department [address] [place], [address], 07/17/2023 06:15:54 07/16/2007/16/2023 LIPID PANEL LDL chol calc ([facility]) 79 mg/dL 0-99 Not Available [facility] Department [address] [place], [address], 07/17/2023 06:15:54 07/16/2007/16/2023 COMP. METAB OLIC PANEL (14) glucose 94 mg/dL 70-99 Not Available [facility] Department [address] [place], [address], 07/17/2023 06:15:55 07/16/2007/16/2023 COMP. METAB OLIC PANEL (14) BUN 18 mg/dL 8-27 Not Available [facility] Department [address] [place], [address], 07/17/2023 06:15:55 07/16/2007/16/2023 COMP. METAB OLIC PANEL (14) creatinine 0.52 mg/dL 0.76-1 .27 below low normal Not Available [facility] Department [address] [place] [address], [address], 07/17/2023 06:15:55 07/16/2007/16/2023 COMP. METAB OLIC PANEL (14) eGFR 102 >=60 Units for eGFR value s are mL/mi n/1.7 3 The eGFR Calcu latio n has not been valid ated for patie nts under the age of 18. If test resul ts are displ ayed for a patie nt under the age of 18, disre liborio that value . Not Available [facility] Department [address] [place], [address], 07/17/2023 06:15:55 07/16/2007/16/2023 COMP. METAB OLIC PANEL (14) BUN/creatini ne ratio 35 10-28 above high normal Not Available [facility] Department [address] [place], [address], 07/17/2023 06:15:55 07/16/2007/16/2023 COMP. METAB OLIC PANEL (14) sodium 143 mmol/ L 134-14 4 Not Available [facility] Department [address] [place], [address], 07/17/2023 06:15:55 07/16/2007/16/2023 COMP. METAB OLIC PANEL (14) potassium 3.3 mmol/ L 3.5-5. 2 below low normal Not Available [facility] Department [address] [place] [address], [address], 07/17/2023 06:15:55 07/16/2007/16/2023 COMP. METAB OLIC PANEL (14) chloride 101 mmol/ L 96-106 Not Available [facility] Department [address] [place] [address], [address], 07/17/2023 06:15:55 07/16/2007/16/2023 COMP. METAB OLIC PANEL (14) carbon dioxide, total 27 mmol/ L 20-29 Not Available [facility] Department [address] [place] [address], [address], 07/17/2023 06:15:55 07/16/2007/16/2023 COMP. METAB OLIC PANEL (14) calcium 9.2 mg/dL 8.7-10 .3 Not Available [facility] Department [address] [place] [address], [address], 07/17/2023 06:15:55 07/16/2007/16/2023 COMP. METAB OLIC PANEL (14) protein, total 6.7 g/dL 6.0-8. 5 Not Available [facility] Department [address] [place] [address], [address], 07/17/2023 06:15:55 07/16/2007/16/2023 COMP. METAB OLIC PANEL (14) albumin 4.3 g/dL 3.8-4. 8 Not Available [facility] Department [address] [place] [address], [address], 07/17/2023 06:15:55 07/16/2007/16/2023 COMP. METAB OLIC PANEL (14) globulin, total 2.4 g/dL 1.5-4. 5 Not Available [facility] Department [address] [place], [address], 07/17/2023 06:15:55 07/16/2007/16/2023 COMP. METAB OLIC PANEL (14) A/G ratio 1.8 1.2-2. 2 Not Available [facility] Department [address] [place], [address], 07/17/2023 06:15:55 07/16/2007/16/2023 COMP. METAB OLIC PANEL (14) bilirubin, total 0.8 mg/dL 0.0-1. 2 Not Available [facility] Department [address] [place], [address], 07/17/2023 06:15:55 07/16/2007/16/2023 COMP. METAB OLIC PANEL (14) alkaline phosphatase 129 IU/L 44-121 above high normal Not Available [facility] Department [address] [place], [address], 07/17/2023 06:15:55 07/16/2007/16/2023 COMP. METAB OLIC PANEL (14) AST (SGOT) 21 IU/L 0-40 Not Available [facility] Department [address] [place] [address], [address], 07/17/2023 06:15:55 07/16/2007/16/2023 COMP. METAB OLIC PANEL (14) ALT (SGPT) 29 IU/L 0-32 Not Available [facility] Department [address] [place], [address], 07/17/2023 06:15:55 07/16/2007/16/2023 CBC, PLATE LET, NO DIFFE RENTI AL WBC 7.5 x10e3 /uL 3.4-10 .8 Not Available [facility] Department [address] [place] [address], [address], 07/17/2023 06:15:56 07/16/2007/16/2023 CBC, PLATE LET, NO DIFFE RENTI AL RBC 4.66 x10e6 /uL 3.77-5 .28 Not Available [facility] Department [address] [place], [address], 07/17/2023 06:15:56 07/16/2007/16/2023 CBC, PLATE LET, NO DIFFE RENTI AL hemoglobin 13.4 g/dL 11.1-1 5.9 Not Available [facility] Department [address] [place], [address], 07/17/2023 06:15:56 07/16/2007/16/2023 CBC, PLATE LET, NO DIFFE RENTI AL hematocrit 41.7 % 34.0-4 6.6 Not Available [facility] Department [address] [place], [address], 07/17/2023 06:15:56 07/16/2007/16/2023 CBC, PLATE LET, NO DIFFE RENTI AL MCV 90 fL 79-97 Not Available [facility] Department [address] [place], [address], 07/17/2023 06:15:56 07/16/2007/16/2023 CBC, PLATE LET, NO DIFFE RENTI AL MCH 28.8 pg 26.6-3 3.0 Not Available [facility] Department [address] [place], [address], 07/17/2023 06:15:56 07/16/2007/16/2023 CBC, PLATE LET, NO DIFFE RENTI AL MCHC 32.1 g/dL 31.5-3 5.7 Not Available [facility] Department [address] [place], [address], 07/17/2023 06:15:56 07/16/2007/16/2023 CBC, PLATE LET, NO DIFFE RENTI AL RDW 12.7 % 11.5-1 4.5 Not Available [facility] Department [address] [place], [address], 07/17/2023 06:15:56 07/16/2007/16/2023 CBC, PLATE LET, NO DIFFE RENTI AL platelets 194 x10e3 /uL 150-45 0 Mean Plate let Volum e 10.6 fL 8.9-1 2.7 N Not Available [facility] Department [address] [place], [address], 07/17/2023 06:15:56 07/16/2007/16/2023 CBC, PLATE LET, NO DIFFE RENTI AL NRBC 0 % 0-0 Not Available [facility] Department [address] [place], [address], 07/17/2023 06:15:56 07/16/2007/17/2023 TSH TSH 2.340 uIU/m L 0.450- 4.500 Not Available [facility] ([facility]) [address] [facility], [place], [address], 07/17/2023 08:26:34 07/16/2007/17/2023 VITAM IN D, 25-HY [...] and D. Florencio sahu DC: The [facility] Press . 2. Arielle sharif MF, Olga pena [place], Fletcher off-F errar i DUMONT, et al. Evalu ation , treat ment, and preve ntion of vitam in D defic iency : an Endoc rine Socie ty clini [place] pract ice guide line. JCEM. 2010; 96(7) :1911 -30. Not Available [facility] ([facility]) [address] [facility], [place], [address], 07/17/2023 08:26:35 07/07/2007/08/2024 LIPID PANEL cholesterol, total 136 mg/dL 100-19 9 Not Available [facility] ([facility]) [address] [place], [address], 07/08/2024 08:29:56 07/07/2007/08/2024 LIPID PANEL triglyceride s 162 mg/dL 0-149 above high normal Not Available [facility] ([facility]) [address] [place], [address], 07/08/2024 08:29:56 07/07/2007/08/2024 LIPID PANEL HDL cholesterol 40 mg/dL >39 Not Available [facility] ([facility]) [address] [facility], [place], [address], 07/08/2024 08:29:56 07/07/2007/08/2024 LIPID PANEL VLDL cholesterol [place] 28 mg/dL 5-40 Not Available [facility] ([facility]) [address] [place], [address], 07/08/2024 08:29:56 07/07/2007/08/2024 LIPID PANEL LDL chol calc ([facility]) 68 mg/dL 0-99 Not Available [facility] ([facility]) [address] [place], [address], 07/08/2024 08:29:56 07/07/2007/08/2024 COMP. METAB OLIC PANEL (14) glucose 102 mg/dL 70-99 above high normal Not Available [facility] ([facility]) [address] [place] [place], [address], 07/08/2024 08:29:58 07/07/2007/08/2024 COMP. METAB OLIC PANEL (14) BUN 16 mg/dL 8-27 Not Available [facility] ([facility]) [address] [place] [place], [address], 07/08/2024 08:29:58 07/07/2007/08/2024 COMP. METAB OLIC PANEL (14) creatinine 0.76 mg/dL 0.57-1 .00 Not Available [facility] ([facility]) [address] [place] [place], [address], 07/08/2024 08:29:58 07/07/2007/08/2024 COMP. METAB OLIC PANEL (14) eGFR 85 mL/mi n/1.7 3 >59 Not Available [facility] ([facility]) [address] [facility], [place], [address], 07/08/2024 08:29:58 07/07/2007/08/2024 COMP. METAB OLIC PANEL (14) BUN/creatini ne ratio 21 12-28 Not Available [facility] ([facility]) [address] [place] [place], [address], 07/08/2024 08:29:58 07/07/2007/08/2024 COMP. METAB OLIC PANEL (14) sodium 139 mmol/ L 134-14 4 Not Available [facility] ([facility]) [address] [place] [place], [address], 07/08/2024 08:29:58 07/07/2007/08/2024 COMP. METAB OLIC PANEL (14) potassium 3.8 mmol/ L 3.5-5. 2 Not Available [facility] ([facility]) [address] [place] [place], [address], 07/08/2024 08:29:58 07/07/20 24 07/08/2024 COMP. METAB OLIC PANEL (14) chloride 98 mmol/ L 96-106 Not Available [facility] ([facility]) [address] [facility], [place], [address], 07/08/2024 08:29:58 07/07/20 24 07/08/2024 COMP. METAB OLIC PANEL (14) carbon dioxide, total 25 mmol/ L 20-29 Not Available [facility] ([facility]) [address] [facility], [place], [address], 07/08/2024 08:29:58 07/07/2007/08/2024 COMP. METAB OLIC PANEL (14) calcium 9.7 mg/dL 8.7-10 .3 Not Available [facility] ([facility]) [address] [facility], [place], [address], 07/08/2024 08:29:58 07/07/2007/08/2024 COMP. METAB OLIC PANEL (14) protein, total 7.1 g/dL 6.0-8. 5 Not Available [facility] ([facility]) [address] [facility], [place], [address], 07/08/2024 08:29:58 07/07/2007/08/2024 COMP. METAB OLIC PANEL (14) albumin 4.4 g/dL 3.9-4. 9 Not Available [facility] ([facility]) [address] [facility], [place], [address], 07/08/2024 08:29:58 07/07/2007/08/2024 COMP. METAB OLIC PANEL (14) globulin, total 2.7 g/dL 1.5-4. 5 Not Available [facility] ([facility]) [address] [facility], [place], [address], 07/08/2024 08:29:58 07/07/2007/08/2024 COMP. METAB OLIC PANEL (14) bilirubin, total 0.8 mg/dL 0.0-1. 2 Not Available [facility] ([facility]) [address] [place], [address], 07/08/2024 08:29:58 07/07/20 24 07/08/2024 COMP. METAB OLIC PANEL (14) alkaline phosphatase 108 IU/L 44-121 Not Available [facility] ([facility]) [address] [place], [address], 07/08/2024 08:29:58 07/07/2007/08/2024 COMP. METAB OLIC PANEL (14) AST (SGOT) 23 IU/L 0-40 Not Available [facility] ([facility]) [address] [place], [address], 07/08/2024 08:29:58 07/07/20 24 07/08/2024 COMP. METAB OLIC PANEL (14) ALT (SGPT) 19 IU/L 0-32 Not Available [facility] ([facility]) [address] [place], [address], 07/08/2024 08:29:58 07/07/2007/08/2024 HEMOG LOBIN A1C hemoglobin A1C 6.2 % 4.8-5. 6 above high normal Predi abete s: 5.7 - 6.4 Diabe mesfin: >6.4 Glyce leona contr ol for adult s with diabe mesfin: <7.0 Not Available [facility] ([facility]) [address] [place], [address], 07/08/2024 08:29:59 07/07/2007/08/2024 VITAM IN D, 25-HY [...] um and D. Florencio sahu [place]: [facility] Press . 2. Arielle sharif MF, Olga pena [place], Bisch off-F errclaude i DUMONT, et al. Evalu ation , treat ment, and preve ntion of vitam in D defic iency : an Endoc rine Socie ty clini [place] pract ice guide line. JCEM. 2010; 96(7) :1911 -30. Not Available [facility] ([facility]) [address] [facility], [place], [address], 07/08/2024 08:30:00 10/07/1910/07/2024 urina lysis , dipst [...] 10/07/2024 urina lysis , dipst ick Specific [place] 1.020 Not Available In-Off ice Order Internal [...] + hand No observ ation record ed. [address] [place], [address], 01/24/2023 14:16:12 03/09/20 23 03/09/2023 CT, abdom en + pelvi s, w/o contr ast No observ ation record ed. [address], [place], [address], 03/13/2023 16:43:45 06/05/20 23 06/05/2023 MAMMO , scree ana, bilat eral No observ ation record ed. [facility] [address] [place], [address], 06/27/2023 12:53:30 07/03/2007/03/2023 US, breas t, unila teral No observ ation record ed. [facility] [address] [place], [address], 07/05/2023 09:20:36 07/03/2007/03/2023 MAMMO , diagn ostic , unila teral No observ ation record ed. [address] ([employer]) [address] [place], [address], 07/03/2023 14:20:42 10/15/19 25 10/15/2024 CT, abdom en + pelvi s, w/ contr ast No observ ation record ed. [address] [address], [place], [address], 10/16/2024 12:21:18 10/17/19 25 10/17/2024 US, abdom en No observ ation record ed. [address] [address], [place], [address], 10/20/2024 12:22:07 10/21/19 25 10/21/2024 US, ascencion x, gypsy s, lower extre mity No observ ation record ed. [address] [address], [place], [address], 10/22/2024 10:17:52 10/21/19 25 10/21/2024 CT, abdom en + pelvi s, w/ contr ast No observ ation record ed. [address] [address], [place], [address], 10/22/2024 10:38:39 10/23/19 25 10/23/2024 CT, chest , w/ contr ast No observ ation record ed. [address] [address], [place], [address], 10/25/2024 16:48:20 10/23/19 25 10/23/2024 CT, abdom en + pelvi s, w/ contr ast No observ ation record ed. [address] [address], [place], [address], 10/25/2024 16:48:20 10/24/19 25 10/24/2024 US, abdom en, limit ed No observ ation record ed. [address] [address], [place], [address], 10/28/2024 23:22:35 10/27/19 25 10/27/2024 XR, chest No observ ation record ed. [address] [address], [place], [address], 10/29/2024 10:02:07 10/27/19 25 10/27/2024 fluor oscop y (PROC ) No observ ation record ed. [address] [address], [place], [address], 10/29/2024 10:02:33 Result Notes None recorded. Problems Name Problem SNOMED Code Status Onset Date Resolution Date Notes Provider Name and Address Organization Details Recorded Time Low back pain 425285768 Active 2017 Not Available [facility] 2 06:06:52 Dysuria 72717746 Active 2017 Not Available [facility] 2 06:06:52 Hypokale shana 39754068 Active 2018 Not Available [facility] 2 06:06:52 Administ ration of influenz a vaccine Active 2018 Not Available [facility] 2 06:06:52 Normal grief reaction 369595969 Active 2019 Not Available [facility] 2 06:06:52 High hemoglob in A1c level 462424373 Active 2019 Not Available [facility] 2 06:06:52 Injury of ribs 745086024 Active 2020 right Not Available [facility] 2 06:06:52 Cardiome mahendra 2429561 Active 2020 Not Available [facility] 2 06:06:52 Screenin g for malignan t neoplasm of breast Active 2020 Not Available [facility] 2 06:06:52 Mammogra phy abnormal 706640404 Active 2020 Not Available [facility] 2 06:06:52 Cervical spondylo sis 978510394 Active 2020 see XR cervical spine 05/27/2021 Not Available [facility] 2 06:06:52 Ultrason ography of breast abnormal 24274448550 189669 Active 2020 Not Available [facility] 2 06:06:52 Administ ration of pneumoco ccal vaccine Active 2020 Not Available [facility] 2 06:06:52 Menopaus e present 607820048 Active 2020 Not Available [facility] 2 06:06:52 HIV screenin g Active 2021 Richardson oCrrea PA-C Attn: Accounting ,[address] [facility], [place], [address] , [place] - [facility] 2 10:01:15 Pharyngi tis 155781431 Active 2021 Richardson Correa PA-C Attn: Accounting ,[address] [facility], [place], [address] , [place] [facility] 2 10:46:21 Cough 33240676 Active 2021 Emperatriz Meyer MD Attn: Accounting ,[address] [facility], [place], [address] , [place] [facility] 2 17:15:56 Morbid obesity 516666053 Active 2022 Emperatriz Meyer MD Attn: Accounting ,[address] [facility], [place], [address] , [place] [facility] 3 10:57:52 Finger joint stiff 579500229 Active 2022 Emperatriz Meyer MD Attn: Accounting ,[address] [facility], [place], [address] , [place] [facility] 3 10:59:17 Pain of bilatera l hands 05578071024 907325 Active 2022 Emperatriz Meyer MD Attn: Accounting ,[address] [facility], [place], [address] , [place] [facility] 3 10:39:02 History of polyp of colon 310933293 Active 2023 Emperatriz Meyer MD Attn: Accounting ,[address] [facility], [place], [address] , [place] [facility] 4 10:34:33 Disorder of skin 27971975 Active 2023 Emperatriz Meyer MD Attn: Accounting ,[address] [facility], [place], [address] , [place] [facility] 4 10:36:51 Carcinom a of breast 601247337 Active 2023 Papillar y carcinom a 2020 Emperatriz Meyer MD Attn: Accounting ,[address] [facility], [place], [address] , [place] [facility] 4 10:28:22 Disorder of left ear 21122184140 46087 Active 2023 Emperatriz Meyer MD Attn: Accounting ,[address] [facility], [place], [address] , [place] [facility] 4 10:31:36 Urinary tract infectio us disease 66595531 Active 2024 Emperatriz Meyer MD Attn: Accounting ,[address] [facility], [place], [address] , [facility] - [facility] 5 15:39:12 Essentia l hyperten alex 32048218 Active Not Available [facility] 2 06:06:52 Hyperlip idemia 15955182 Active Not Available [facility] 2 06:06:52 Follicul itis 57814499 Active Not Available [facility] 2 06:06:52 Acute labyrint hitis 58600354596 4103 Active Not Available [facility] 2 06:06:52 Obesity 433149548 Completed 01/08/2023 Emperatriz Meyer MD Attn: Accounting ,[address] [facility], [place], [address] , [facility] - [facility] 3 10:57:41 Screenin g for malignan t neoplasm of colon Active 2016 Not Available [facility] 2 06:06:52 Vitamin D deficien cy 81555516 Active 2016 Not Available [facility] 2 06:06:52 Notes:prolapsed bowel in 200 7.... pinned to spine Problem Notes None recorded. Procedures Surgical History Date Name Laterality Status Provider Name and Address Organization Details Recorded Time 09/26/19 22 lumpectomy of breast completed Yenny Jackson MA [facility] 04/04/2022 09:43:11 09/24/19 16 Most [facility] 10:20:56 09/24/19 07 operation on intestine completed Danish [facility] 06/19/2019 10:24:51 09/24/18 88 [facility] 06/19/2019 10:23:01 Imaging Results Imaging Date Name Status LastModified by Organiz ation Details LastModified Time 01/10/2023 XR, wrist + hand completed [email or web address] [facility] [address] [place], [address], 01/24/2023 14:16:12 03/09/2023 CT, abdomen + pelvis, w/o contrast completed [address], [address], 03/13/2023 16:43:45 06/05/2023 MAMMO, screening, bilateral completed [facility] [address] [place], [address], 06/27/2023 12:53:30 07/03/2023 US, breast, unilateral completed [facility] [address] [place], [address], 07/05/2023 09:20:36 07/03/2023 MAMMO, diagnostic, unilateral completed [address] ([employer]) [address] [place], [address], 07/03/2023 14:20:42 10/15/2024 CT, abdomen + pelvis, w/ contrast completed [address], [address], 10/16/2024 12:21:18 10/17/2024 US, abdomen completed [address], [address], 10/20/2024 12:22:07 10/21/2024 US, duplex, venous, lower extremity completed [address], [address], 10/22/2024 10:17:52 10/21/2024 CT, abdomen + pelvis, w/ contrast completed [address], [address], 10/22/2024 10:38:39 10/23/2024 CT, chest, w/ contrast completed [address], [address], 10/25/2024 16:48:20 10/23/2024 CT, abdomen + pelvis, w/ contrast completed [address] [facility], [place], [address], 10/25/2024 16:48:20 10/24/2024 US, abdomen, limited completed [address], [address], 10/28/2024 23:22:35 10/27/2024 XR, chest completed [address] [address], [place], [address], 10/29/2024 10:02:07 10/27/2024 fluoroscopy (PROC) completed [address] [address], [place], [address], 10/29/2024 10:02:33 Procedure Notes None recorded. Medical Equipment None [...] Not Available Vitals Date Recorded Body height Body mass index (BMI) Body weight Body temperature Heart rate Oxygen saturation Oxygen saturation in Arterial blood by Pulse oximetry Systolic blood pressure Diastolic blood pressure Provider Name and Address Organization Details Last Updated DateTime 3 156.21 cm 37.4 kg/m2 62700.0 7 g 98.1 [degF] 89 /min 96 % 96 % 142 mm[Hg] 82 mm[Hg] Dalia Ellis MA [facility] 3 10:37:28 Date Recorded Body height Body mass index (BMI) Body weight Heart rate Oxygen saturation Oxygen saturation in Arterial blood by Pulse oximetry Systolic blood pressure Diastolic blood pressure Provider Name and Address Organization Details Last Updated DateTime 3 156.21 cm 37.2 kg/m2 79711.4 7 g 91 /min 94 % 94 % 150 mm[Hg] 85 mm[Hg] Madelyn Hong MA [facility] 3 10:11:49 Date Recorded Body height Body mass index (BMI) Body weight Heart rate Body temperature Oxygen saturation Oxygen saturation in Arterial blood by Pulse oximetry Systolic blood pressure Diastolic blood pressure Provider Name and Address Organization Details Last Updated DateTime 3 156.21 cm 36.2 kg/m2 19906.5 1 g 80 /min 98 [degF] 95 % 95 % 140 mm[Hg] 80 mm[Hg] Dalia Ellis MA [facility] 3 10:01:32 Date Recorded Body height Body mass index (BMI) Body weight Body temperature Oxygen saturation Oxygen saturation in Arterial blood by Pulse oximetry Heart rate Systolic blood pressure Diastolic blood pressure Provider Name and Address Organization Details Last Updated DateTime 4 156.21 cm 34.9 kg/m2 24399.3 7 g 98 [degF] 96 % 96 % 84 /min 134 mm[Hg] 80 mm[Hg] Dalia Ellis [place] [facility] 4 10:15:53 Date Recorded Body height Body mass index (BMI) Body weight Heart rate Oxygen saturation Oxygen saturation in Arterial blood by Pulse oximetry Systolic blood pressure Diastolic blood pressure Provider Name and Address Organization Details Last Updated DateTime 4 156.21 cm 36.6 kg/m2 13074.7 g 82 /min 95 % 95 % 130 mm[Hg] 81 mm[Hg] Jose Correa [place] [facility] 4 10:00:14 Social History Question Answer Notes LastModified by Organizat ion Details LastModified Time Tobacco Smoking Status Never Smoker Not Available [facility] 07/27/2020 03:43:22 Do You Have An Advance Directive? No [id number] Information not available 07/27/2020 What Is Your Level Of Alcohol Consumption? None [id number] Information not available 07/27/2020 Are You Blind Or Do You Have Difficulty Seeing? No [id number] Information not available 07/27/2020 What Is Your Level Of Caffeine Consumption? Moderate [id number] Information not available 07/27/2020 How Much Tobacco Do You Chew? None [id number] Information not available 07/27/2020 Are You Currently Employed? No Information not available 02/03/2021 Are You Deaf Or Do You Have Serious Difficulty Hearing? No [id number] Information not available 07/27/2020 What Type Of Diet Are You Following? REGULAR [id number] Information not available 07/27/2020 Which Illicit Or Recreational Drugs Have You Used? 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 No [id number] Information not available 07/27/2020 Hard Of Hearing [...] How Much Tobacco Do You Smoke? No [id number] Information not available 07/27/2020 General Stress Level Medium Information not available 02/23/2015 Do You Feel Stressed (tense, Restless, Nervous, Or Anxious, Or Unable To Sleep At Night)? [id number] Information not available 02/03/2021 Do You Use Any Illicit Or Recreational Drugs? No Information not available 02/03/2021 Do You Use Sunscreen Routinely? No [id number] Information not available 07/27/2020 Has Tobacco Cessation [...] have difficulty walking or climbing stairs? No [id number] Information not available 07/27/2020 Do you have difficulty doing errands alone? No [id number] Information not available 07/27/2020 Are you able to care for yourself? Yes Information not available 02/03/2021 Do you have difficulty dressing or bathing? No [id number] Information not available 07/27/2020 What is your exercise level? Occasional [id number] Information not available 07/27/2020 Mental Status Question Answer Note LastModified by Organization D etails LastModified Time Do you have difficulty concentrating, remembering or making decisions? No [id number] Information no t available 07/27/2020 Family History [...] Response Coronary Artery Disease N Other N High Blood Pressure Y Atrial Fibrillation N Breast Cancer N Kidney or Bladder Problems N Thyroid Problems N GI Problems N Depression N COPD N Blood Clots N Have you had a mammogram in the last yea r? N Breast Problem N Skin Problems Y Anemia N Heart Attack ([place]) N Anxiety Disorder N Diabetes N Muscle, [...] Recorded Time Tdap 6 completed Not Available [facility] 10/11/2019 02:30:21 Influenza, split virus, quadrivalent, preservative 0 completed Not Available [facility] 09/28/2021 06:06:52 COVID-19, mRNA, LNP-S, PF, 100 mcg/0.5mL dose or 50 mcg/0.25mL dose 1 completed Not Available [facility] 09/28/2021 06:06:52 COVID-19, mRNA, LNP-S, PF, 100 mcg/0.5mL dose or 50 mcg/0.25mL dose 1 completed Not Available [facility] 09/28/2021 06:06:52 COVID-19, mRNA, [...] virus, quadrivalent, preservative 9 completed Not Available [facility] 10/11/2019 02:41:29 Pneumococcal conjugate PCV 13 1 completed [facility] [place] [facility] 08/12/2021 10:52:14 Influenza, split virus, quadrivalent, preservative 5 completed Not Available [facility] 10/11/2019 02:47:51 Past Encounters Encounter ID Performer Location Encounter Start Date Encounter Closed Date Diagnosis/Indication Diagnosis SNOMED-CT Code Diagnosis ICD10 Code Diagnosis Note [id number] Maryam (Adult Med) [address] [place] [address] [phone] 0 02/23/2015 09:39:49 02/23/2015 11:21:06 Essential hypertension 88606553 Hyperlipidemia 80842373 Adult heal th examination 813878783 [id number] [facility] (Adult Med) [address] [place] [address] [id number] 0 05/26/2015 09:14:07 05/26/2015 10:15:40 Adult health examination 380009071 Essential hypertension 93489534 Hyperlipidemia 86450872 Folliculitis 49397969 [id number] ALIZA Chavis (Adult Med) [address] [place] [address] [id number] 0 07/27/2015 09:15:41 07/27/2015 10:04:19 Administration of influenza vaccine 04494398 Z23 Adult [facility] th examination 304963458 Z00.00 Essential hypertension 59354520 I10 Hyperlipidemia 03472627 E78.5 [id number] ALIZA Chavis (Adult Med) [address] [place] [address] 06718-924 0 10/05/2015 09:14:36 10/05/2015 10:02:26 Acute labyrinthitis 7587999562 23804 H83.09 Essential hypertension 20466930 I10 Hyperlipidemia 56208530 E78.5 [id number] ALIZA Chavis (Adult Med) [address] [place] [address] [id number] 0 02/03/2016 09:14:08 02/03/2016 16:59:30 Essential hypertension 06883346 I10 Hyperlipidemia 78756815 E78.5 Obesity 811688668 E66.9 Administra tion of tetanus vaccine 349269532 Z23 Screening mammography 24 430043 Z12.31 [id number] ALIZA Chavis (Adult Med) [address] [place] [address] [id number] 0 08/02/2016 10:29:29 08/02/2016 12:00:24 Obesity 653208358 E66.9 Hyperlipidemia 16530675 E78.5 Essential hypertension 22106398 I10 Acute labyrinthitis 4336 404007 74834 H83.09 [id number] ALIZA Chavis (Adult Med) [address] [place] [address] [id number] 0 11/23/2016 09:31:42 11/24/2016 11:40:13 Screening for malignant neoplasm of colon 825460766 Z12.11 Essential hypertension 44759664 I10 Hyperlipidemia 31678539 E78.5 Obesity 929885446 E66.9 Acute labyrinthitis 4336 131520 98893 H83.09 [id number] ALIZA Chavis (Adult Med) [address] [place] [address] [id number] 0 05/25/2017 09:32:08 05/25/2017 10:53:40 Essential hypertension 33438988 I10 Acute labyrinthitis 4336 982253 70233 H83.09 Hyperlipidemia 15064289 E78.5 Vitamin D deficiency 347 17144 E55.9 Obesity 498253131 E66.9 [id number] ALIZA Chavis (Adult Med) [address] [place] [address] [id number] 0 08/24/2017 09:32:20 08/24/2017 10:21:15 Essential hypertension 26257871 I10 Hyperlipidemia 08911153 E78.5 Obesity 676813676 E66.9 Vitamin D deficiency 347 53351 E55.9 Screening for malignant neoplasm of colon 268709790 Z12.11 [id number] ALIZA Chaivs (Adult Med) [address] [place] [address] [id number] 0 02/22/2018 09:21:27 02/22/2018 10:17:15 Hyperlipidemia 21169885 E78.5 Essential hypertension 69456847 I10 Dysuria 63112842 R30.0 Low back pain 697992843 M54.5 Vitamin D deficiency 347 77682 E55.9 Obesity 714046520 E66.9 [id number] ALIZA Chavis (Adult Med) [address] [place] [address] [id number] 0 06/04/2018 10:03:24 06/05/2018 10:23:44 Hyperlipidemia 70143237 E78.5 Essential hypertension 34807372 I10 Obesity 063062538 E66.9 Low back pain 294396241 M54.5 Vitamin D deficiency 347 05948 E55.9 Screening for malignant neoplasm of colon 460510188 Z12.11 [id number] ALIZA Chavis (Adult Med) [address] [place] [address] 09904-729 0 09/05/2018 09:18:32 09/05/2018 10:34:15 Essential hypertension 40223314 I10 Hyperlipidemia 06016132 E78.5 Obesity 402708191 E66.9 Vitamin D deficiency 347 12404 E55.9 Screening for malignant neoplasm of colon 418086875 Z12.11 [id number] ALIZA Chavis (Adult Med) [address] [place] [address] 75517-779 0 11/05/2018 09:34:48 11/05/2018 10:50:15 Hypokalemia 74663136 E87.6 Hyperlipidemia 06737728 E78.5 Essential hypertension 33872523 I10 Obesity 204537116 E66.9 Vitamin D deficiency 347 42370 E55.9 Low back pain 643886425 M54.5 Screening for malignant neoplasm of colon 576508692 Z12.11 [id number] ALIZA Chavis (Adult Med) [address] [place] [address] [id number] 0 03/13/2019 11:20:26 03/14/2019 08:56:05 Essential hypertension 85679293 I10 Hyperlipidemia 01776789 E78.5 Vitamin D deficiency 347 84282 E55.9 Low back pain 176060383 M54.5 Hypokalemia 99079087 E87 .6 Dysuria 56587889 R30.0 Obesity 792920660 E66.9 [id number] ALIZA Chavis (Adult Med) [address] [place] [address] [id number] 0 05/12/2019 09:16:58 05/13/2019 09:16:57 Low back pain 191953802 M54.5 [id number] Danish 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 (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) [address] [place] [address] [id number] 0 06/19/2019 09:57:34 06/20/2019 11:42:59 Screening mammography 66986815 Z12.31 History of hysterectomy 496149602 Z90.711 2007 for cervical cancer Screening for osteoporosis 115225382 Z13.820 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 Menopausal syndrome 1237 66732 N95.9 Candidal vulvovaginitis [id number] B37.3 [id number] ALIZA Chavis (Adult Med) [address] [place] [address] 22352-265 0 06/26/2019 09:20:24 06/26/2019 10:03:58 Essential hypertension 68349702 I10 Hyperlipidemia 66337252 E78.5 Vitamin D deficiency 347 29757 E55.9 Low back pain 465835563 M54.5 Hypokalemia 42520107 E87 .6 Administra tion of influenza vaccine 75043625 Z23 Obesity 020949654 E66.9 [id number] ALIZA Chavis (Adult Med) [address] [place] [address] 13539-744 0 07/24/2019 09:27:53 07/24/2019 10:15:50 Essential hypertension 64716497 I10 Hyperlipidemia 76343829 E78.5 Obesity 080855145 E66.9 Vitamin D deficiency 347 11605 E55.9 Low back pain 040430635 M54.5 Hypokalemia 46775830 E87 .6 History of hysterectomy 334680727 Z90.928 [id number] ALIZA Chavis (Adult Med) [address] [place] [address] 21292-387 0 12/08/2019 10:44:52 12/08/2019 11:47:12 Normal grief reaction 905958722 F43.20 Essential hypertension 48636294 I10 Hyperlipidemia 04932778 E78.5 Vitamin D deficiency 347 47240 E55.9 Hypokalemia 88952792 E87 .6 Low back pain 528728336 M54.5 [id number] ALIZA Chavis (Adult Med) [address] [place] [address] 77464-759 0 04/13/2020 09:35:27 04/13/2020 10:18:08 Essential hypertension 78799363 I10 Hyperlipidemia 14198012 E78.5 Vitamin D deficiency 347 83457 E55.9 High hemog lobin A1c level 529780206 R73.09 [id number] ALIZA Chavis (Adult Med) [address] [place] [address] 12815-398 0 07/26/2020 08:00:03 07/26/2020 11:11:05 High hemoglobin A1c level 791162273 R73.09 Hyperlipidemia 24215850 E78.5 Low back pain 838515119 M54.5 Vitamin D deficiency 347 01977 E55.9 Essential hypertension 11845910 I10 Normal grief reaction 27 2227145 F43.20 Hypokalemia 64732908 E87 .6 [id number] ALIZA Chavis (Adult Med) [address] [place] [address] 19570-971 0 01/04/2021 11:05:45 01/06/2021 11:05:34 Low back pain 579227692 M54.5 Essential hypertension 63080371 I10 Hyperlipidemia 79763488 E78.5 Vitamin D deficiency 347 51405 E55.9 [id number] ALIZA Chavis (Adult Med) [address] [place] [address] 50869-152 0 02/03/2021 11:43:22 02/03/2021 12:23:07 Low back pain 036539091 M54.5 Hyperlipidemia 65010576 E78.5 Hypokalemia 19337824 E87 .6 Vitamin D deficiency 347 30460 E55.9 High hemog lobin A1c level 131044012 R73.09 Essential hypertension 63105989 I10 [id number] ALIZA Chavis (Adult Med) [address] [place] [address] 17691-227 0 03/31/2021 10:35:44 03/31/2021 11:41:27 Cardiomegaly 7863511 I51.7 Hyperlipidemia 14712016 E78.5 Essential hypertension 63426852 I10 Screening for malignant neoplasm of breast 309553320 Z12.39 High hemog lobin A1c level 720392512 R73.09 Low back pain 216123780 M54.5 Vitamin D deficiency 347 44271 E55.9 Screening mammography of bilateral breasts 3660020205 59921 Z12.31 [id number] ALIZA Chavis (Adult Med) [address] [place] [address] 54760-640 0 08/12/2021 09:37:08 08/12/2021 11:13:10 Mammography abnormal 173887788 R92.8 Administra tion of pneumococcal vaccine 39276630 Z23 Normal grief reaction 27 4988206 F43.20 Menopause present 667952 006 Z78.0 [id number] ALIZA Chavis (Adult Med) [address] [place] [address] 96236-740 0 11/25/2021 10:21:39 12/01/2021 17:01:26 Cervical spondylosis 780078739 M47.812 Essential hypertension 99291560 I10 High hemog lobin A1c level 127784525 R73.09 Hyperlipidemia 51155822 E78.5 Low back pain 222402763 M54.50 Normal grief reaction 27 7682880 F43.20 Vitamin D deficiency 347 12677 E55.9 [id number] ALIZA Chavis (Adult Med) [address] [place] [address] 50392-487 0 02/28/2022 09:59:45 03/01/2022 11:47:22 Essential hypertension 62764941 I10 Acute labyrinthitis 4336 506894 63500 H83.09 Cardiomegaly 4612566 I51 .7 Cervical spondylosis 387 660110 M47.812 High hemog lobin A1c level 151683729 R73.09 Hyperlipidemia 29442454 E78.5 Low back pain 568771999 M54.50 Obesity 772078291 E66.9 Vitamin D deficiency 347 02066 E55.9 [id number] ALIZA Chavis (Adult Med) [address] [place] [address] 11790-022 0 04/04/2022 09:06:07 04/05/2022 11:44:29 Screening for malignant neoplasm of breast 517909877 Z12.39 Vitamin D deficiency 347 04958 E55.9 Normal grief reaction 27 7378380 F43.20 Hyperlipidemia 95330153 E78.5 Essential hypertension 06050883 I10 HIV screening 535538316 Z11.4 High hemog lobin A1c level 971330874 R73.09 Cervical spondylosis 387 463295 M47.812 Low back pain 339112314 M54.50 Screening mammography 24 503311 Z12.31 [id number] ALIZA Chavis (Adult Med) [address] [place] [address] 28578-630 0 05/08/2022 10:18:30 05/09/2022 08:17:42 Essential hypertension 30070340 I10 Low back pain 275440148 M54.50 Pharyngitis 109160654 J0 2.9 Cardiomegaly 5897139 I51 .7 Cervical spondylosis 387 843968 M47.812 High hemog lobin A1c level 898481288 R73.09 Hyperlipidemia 65744434 E78.5 Normal grief reaction 27 8050354 F43.20 Vitamin D deficiency 347 85496 E55.9 [id number] ALIZA Chavis (Adult Med) [address] [place] [address] 08682-316 0 06/09/2022 10:30:01 06/12/2022 13:58:21 Cervical spondylosis 921079419 M47.812 Hyperlipidemia 81689403 E78.5 Essential hypertension 58234394 I10 Low back pain 205639286 M54.50 Obesity 181540856 E66.9 Vitamin D deficiency 347 70216 E55.9 Cardiomegaly 9234721 I51 .7 High hemog lobin A1c level 601079730 R73.09 [id number] MD Maryam White (Adult Med) [address] [place] [address] 70511-262 0 08/09/2022 14:57:26 08/11/2022 12:39:15 Essential hypertension 29832335 I10 Cont current regimen Cough 58833468 R05.9 [id number] MD Maryam White (Adult Med) [address] [place] [address] 15828-018 0 01/08/2023 10:13:51 01/09/2023 10:18:23 Morbid obesity 153612123 E66.01 Essential hypertension 50369267 I10 Cont current regimen Hyperlipidemia 43375800 E78.5 Cardiomegaly 5401706 I51 .7 Finger joint stiff 95676 8005 M25.649 Vitamin D deficiency 347 18288 E55.9 Screening for malignant neoplasm of colon 551165840 Z12.11 [id number] Emperatriz Meyer MD [facility] (Adult Med) [address] [place] [address] 02602-745 0 05/10/2023 09:35:49 05/14/2023 10:00:26 Essential hypertension 52254200 I10 high x last three visits. Will increase amlodipine to 10 mg/d Morbid obesity 344995987 E66.01 Screening for malignant neoplasm of breast 537473787 Z12.39 Screening for malignant neoplasm of colon 150726616 Z12.11 Pain of bi lateral hands 2302374816 6056367 M79.641 M79.642 Screening mammography 24 377930 Z12.31 [id number] Emperatriz Meyer MD [facility] (Adult Med) [address] [place] [address] 36041-997 0 07/10/2023 09:34:52 07/19/2023 12:43:18 Essential hypertension 59243336 I10 Will increase amlodipine to 10 mg/d. Will increase losartan Hyperlipidemia 64262667 E78.5 Hypokalemia 37926496 E87 .6 Low back pain 623589462 M54.50 Morbid obesity 991562719 E66.01 Vitamin D deficiency 347 90531 E55.9 [id number] Emperatriz Meyer MD [facility] (Adult Med) [address] [place] [address] 76727-919 0 01/09/2024 09:27:37 01/10/2024 12:34:09 Obesity 048119948 E66.9 Essential hypertension 42445678 I10 Continue current regimen High hemog lobin A1c level 984791095 R73.09 Hyperlipidemia 08114249 E78.5 Hypokalemia 23701347 E87 .6 Low back pain 452869094 M54.50 Morbid obesity 716398469 E66.01 Vitamin D deficiency 347 56622 E55.9 History of polyp of colon 439366102 Z86.010 Get colonoscop y results Disorder of skin 6645524 5 L98.9 [id number] Emperatriz Meyer MD [facility] ([facility]) [address] [place] [address] 71968-895 0 07/07/2024 09:31:14 07/08/2024 10:00:55 Essential hypertension 50740506 I10 Continue current regimen High hemog lobin A1c level 326975987 R73.09 History of polyp of colon 143340661 Z86.0100 Hyperlipidemia 28868943 E78.5 Morbid obesity 177077526 E66.01 Vitamin D deficiency 347 45512 E55.9 Carcinoma of breast 2548 93158 C50.919 Screening for malignant neoplasm of breast 779888683 Z12.39 Disorder of left ear 467 4045807 196885 H93.92 Will refer to ENT after other problems addresses Hypokalemia 16827266 E87 .6 Health Concerns Section Related Observation LastModified by Organization Detai ls LastModified Time None Recorded Concern Status LastModified by Organization Details LastModified Time None Recorded Advance Directives Directive N: Payers Encounter Date Sequence Insurance Name Policy Number Policy Mcghee Covered Member ID Mcghee Member ID Guarantor Name 01/08/2023 1 [facility] (MEDICARE REPLACEMENT/A DVANTAGE - HMO) [id number] Yaneth Lucia Estrella [id number] Yaneth Estrella 05/10/2023 1 [facility] (MEDICARE REPLACEMENT/A DVANTAGE - HMO) [id number] Yaneth Lucia Estrella [id number] Yaneth Estrella 07/10/2023 1 [facility] (MEDICARE REPLACEMENT/A DVANTAGE - HMO) [id number] Yaneth Lucia Estrella [id number] Yaneth Ebonie Esrtella 01/09/2024 1 [facility] (MEDICARE REPLACEMENT/A DVANTAGE - HMO) [id number] Yaneth Lucia Estrella [id number] Yaneth Estrella 07/07/2024 1 [facility] (MEDICARE REPLACEMENT/A DVANTAGE - HMO) [id number] Yaneth Lucia Estrella [id number] Yaneth Estrella Notes Date Note Type Note Provider Name and Address Organization Details Recorded Time 01/08/2023 text/html Hands swelling a nd stiffness in hands especially on the left in the past month. She has tried OTC meds with some relief. Emperatriz Meyer MD Attn: Accounting,[address] [facility], [place], [address], [place] [facility] 01/08/2023 11:04:03 05/10/2023 text/html Here for four month f/u visit. Needs mammogram. BP med was apparently denied Emperatriz Meyer MD Attn: Accounting,[address] [facility], [place], [address], [place] [facility] 05/10/2023 10:41:36 07/10/2023 text/html Here for BP f/u. Scheduled for colonoscopy in two days. Emperatriz Meyer MD Attn: Accounting,[address] [facility], [place], [address], [place] [facility] 07/10/2023 10:38:18 01/09/2024 text/html Here for routine f/u. Had colonoscopy about six months ago. Wants results. Has skin lesions on her ear she wants examined by dermatology Emperatriz Meyer MD Attn: Accounting,[address] [facility], [place], [address], [place] [facility] 01/09/2024 10:39:49 07/07/2024 text/html Throbbing of lef t ear for four months. Needs mammogram Emperatriz Meyer MD Attn: Accounting,[address] [facility], [place], [address], [place] [facility] 07/07/2024 10:40:04 OBGyn Episode Ob Episode Information Episode Created Date Number of Fetuses Patient Bloodtype Patient rh Status Prepregnancy Weight lbs Domestic Partner Domestic Partner Phone Father Name Technical Sales Engineer Status 06/19/20 19 1 CLOSED Fetus Data First Name Last Name Admitted to NICU Weight (g) Sex Living Outcome Pediatric Complications Fetus ID Race Codes Race Delivery Type Full Term [id number] Nathanael Calculation Initial Nathanael Date Initial Exam [...] Domestic Partner Domestic Partner Phone Father Name Technical Sales Engineer Status 06/19/20 19 1 CLOSED Fetus Data First Name Last Name Admitted to NICU Weight (g) Sex Living Outcome Pediatric Complications Fetus ID Race Codes Race Delivery Type Full Term [id number] Nathanael Calculation Initial Nathanael Date Initial Exam [...]
--- OUTSIDE RECORDS SUMMARY | 2024-11-03 06:41 | XMS_ITS | Clinical Summary ---
Author Organization [facility] Address [address] [place] [address] Care Team Providers Care Wire Straightener Name Role Phone Richardson Correa Primary Care Provider + Richardson Correa Unavailable [phone] Aris Meyer MD Unavailable Ghanshyam Calixto DO Unavailable [phone] Domingo Bearden MD Unavailable [phone] Ebony Masters MD Unavailable [phone] Allergies No known active allergies Medications diclofenac [...] Surgical History Surgery Date Site/Laterality Comments HYSTERECTOMY ME LIG/TRNSXJ FLP TUBE ABDL/VAG APPR UNI/BI Tubal Ligation - (Added by TW Conv) ME SALPINGO-OOPHORECTOMY COMPL/PRTL UNI/BI SPX Salpingo-oophorectomy Left Side - (Added by TW Conv) ME COLPOPEXY ABDOMINAL APPROACH Vaginal Surgery Colpopexy Abdominal [...] on file 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 Gender Identity Not on file Sexual Orientation Not on file 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 Not on file Not on file Not on file Obstetrics History Last Filed Vital Signs Vital Sign Reading Time Taken Comments Blood Pressure 148/85 06/14/2023 11:03 AM CDT Pulse 94 06/14/2023 11:03 AM CDT Temperature 36.6 C (97.9 F) 06/14/2023 11:03 AM CDT Respiratory Rate 18 06/14/2023 11:03 AM CDT [...] or Tdap) 02/02/2026 02/03/2016 Insurance MEDICARE SOL[place]IONS [place] [id number] MEDICARE SOLUTIONS [place] [id number] Care Teams Wire Straightener Relationship Specialty Start Date End Date Richardson Correa PA [address] [place] [address] PCP - General Internal Medicine 08/31/21 Richardson Correa PA [address] [place] [address]85 Internal Medicine 08/31/21 Aris Meyer MD [address] [place] [address] Consulting Physician Cardiology 08/31/21 Ghanshyam Calixto DO [facility] [id number] Medical Oncologist/Ground Crew Linesman Hematology and Oncology 08/31/21 Domingo Bearden MD [address] [place] [address] [address] [place] [address] Surgeon General Surgery 08/31/21 Ebony Masters MD [facility]8 [facility] [address] [place] [address] Radiation Oncologist Radiation Oncology 05/14/24
--- OUTSIDE RECORDS SUMMARY | 2024-11-03 06:41 | XMS_ITS ---
Author Organization [facility] Address [address] [place] [address] Care Team Providers Care Textile Technical Officer Name Role Phone Richardson Correa Primary Care Provider + Richardson Correa Unavailable [phone] Aris Meyer MD Unavailable Ghanshyam Calixto DO Unavailable [phone] Domingo Bearden MD Unavailable [phone] Ebony Masters MD Unavailable [phone] Active Problems Problem Noted Date Diagnosed Date Personal history of radiation therapy 12/26/2021 Malignant neoplasm of upper- outer quadrant of left breast in female, estrogen receptor positive 08/31/2021 Cancer Staging:Clinical stage from 05/26/2021:Stage IB(cT2, cN0, cM0, G2, ER+, WV+, HER2-) - Signed by Ebony Masters MD on 08/31/2021 Pathologic stage from 09/26/2021:Stage IA(pT1b, pN0(sn), cM0, G2, ER+, WV+, HER2-) - Signed by Ebony Masters MD [...]
--- OUTSIDE RECORDS SUMMARY | 2024-11-03 06:41 | XMS_ITS | Referral Summary ---
Author Organization [facility] Address [address] [place] [address] Care Team Providers Care Dog Handler Name Role Phone Richardson Correa Primary Care Provider + Richardson Correa Unavailable [phone] Aris Meyer MD Unavailable Ghanshyam Calixto DO Unavailable [phone] Domingo Bearden MD Unavailable [phone] Ebony Masters MD Unavailable [phone] Allergies No known active allergies Medications diclofenac [...] from 05/26/2021:Stage IB(cT2, cN0, cM0, G2, ER+, MI+, HER2-) - Signed by Ebony Masters MD on 08/31/2021 Pathologic stage from 09/26/2021:Stage IA(pT1b, pN0(sn), cM0, G2, ER+, MI+, HER2-) - Signed by Ebony Masters MD [...] on file 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 Gender Identity Not on file Sexual Orientation [...] Insurance MEDICARE SOLUTIONS MEDICARE SOLUTIONS Care Teams Dog Handler Relationship Specialty Start Date End Date Richardson Correa PA [address] [place] [address] [phone] PCP - General Internal Medicine 08/31/21 Richardson Correa PA [address] [place] [address] 81135 Internal Medicine 08/31/21 Aris Meyer MD [address] [place] [address] Consulting Physician Cardiology 08/31/21 Ghanshyam Calixto DO [address] [place] [address] [id number] Medical Oncologist/Injection Molding Machine Offbearer Hematology and Oncology 08/31/21 Domingo Bearden MD [address] [place] [address] [phone] Surgeon General Surgery 08/31/21 Ebony Masters MD [address] [place] [address] [phone] Radiation Oncologist Radiation Oncology 05/14/24
--- OUTSIDE RECORDS SUMMARY | 2024-11-03 06:41 | XMS_ITS | Clinical Summary ---
Author Organization [facility] Abisai antony [facility] Address [address] [facility] [place] [address] Care Team Providers Care Oral And Maxillofacial Pathologist Name Role Phone Unavailable Primary Care Provider Unavailabl e Social History Tobacco Use Types Packs/Day Years Used Date Smoking Tobacco: Never Assessed Comments Unknown Sex and Gender Information Value Date Recorded Sex Assigned at Not on file Legal Sex Female 12:29 PM SHOE ASSOCIATE Gender Identity Not on file Sexual Orientation Not on file Plan of Treatment Upcoming Encounters Date Type Department Care Team (Late st Contact Info) Description 11/04/2024 4:00 PM SHOE ASSOCIATE Office Visit [facility] Oncology and Hematology - [place] [address] [facility] [address] [place] [address] Abdulazzi Buchanan MD [address] [facility] [address] [place] [address] Health Maintenance Due Date Last Done Comments DTAP/TDAP/TD VACCINES (1 - Tdap) 12/30/1974 BREAST CANCER SCREENING 1995 COLORECTAL SCREENING 12/30/2000 Colorectal Cancer Screening 12/30/2000 FIT-DNA Q 3 years 12/30/2000 FIT/FOBT Q 1 year 12/30/2000 Flex Sig/CT Colonography Q 5 years 12/30/2000 PNEUMOCOCCAL VACCINE 65+ YEARS (1 of 1 - PCV) 12/31/19 06 ZOSTER VACCINE (1 of 2) 12/30/2005 OSTEOPOROSIS SCREENING 12/30/2020 INFLUENZA VACCINE (#1) 2024 RSV VACCINE (60+ or ) (1 - 1-dose 75+ series) 12/30/2030
--- OUTSIDE RECORDS SUMMARY | 2024-11-03 06:41 | XMS_ITS | Clinical Summary ---
Author Organization [facility] Address [address] [place] [address] Care Team Providers Care Auxiliary Engineer Name Role Phone Richardson Correa Primary Care [...] Comments Blood Pressure 167/88 09/26/2021 4:12 PM DIE ASSEMBLER Pulse 99 09/26/2021 4:12 PM DIE ASSEMBLER Temperature 37 C (98.6 F) 09/26/2021 4:12 PM DIE ASSEMBLER Respiratory Rate 20 09/26/2021 4:12 PM DIE ASSEMBLER Oxygen Saturation 93% 09/26/2021 4:12 PM DIE ASSEMBLER Inhaled Oxygen Concentration - - Weight 88.4 kg (194 lb 14.2 oz) 022 11:00 AM DIE ASSEMBLER Height 154.9 cm (5' 1) 09/26/2021 11:0 0 AM DIE ASSEMBLER Body Mass Index 36.82 09/26/2021 11:00 AM DIE ASSEMBLER Plan of Treatment Health Maintenance Due Date [...] patient's age to complete this topic Insurance [facility] Care Teams Auxiliary Engineer Relationship Specialty Start Date End Date Richardson Correa PA PCP - General PHYSICIAN PMO PROJECT MANAGER 09/13/21 [place] [address] [place] [address] CARDIOVASCULAR DISEASE 09/13/21
[2024-11-03 07:02] LABS: Basophils Absolute Auto 0.1 K/mm3 (0.0-0.1); Basophils Percent Auto 0.3 % (0.2-1.2); Eosinophils Absolute Auto 0.2 K/mm3 (0-0.3); Eosinophils Percent Auto 1.2 % (0-4.4); Hematocrit 33.1 % (37.0-47.0); Hemoglobin 10.5 g/dL (12.0-15.0); Immature Granulocyte Absolute 0.21 K/mm3 (0.00-0.031); Immature Granulocyte Percent A 1.1 % (0-0.5); Lymphocytes Absolute Auto 2.71 K/mm3 (0.9-3.2); Lymphocytes Percent Auto 13.7 % (18.3-44.2); Mean Corpuscular HGB Conc 31.7 g/dl (32-36); Mean Corpuscular Hemoglobin 28.4 pg (26-34); Mean Corpuscular Volume 89.5 fl (80-100); Mean Platelet Volume 10.2 fl (7.4-10.4); Monocytes Absolute Auto 1.6 K/mm3 (0.1-0.6); Monocytes Percent Auto 7.9 % (2.6-8.5); Neutrophils Percent Auto 75.8 % (45.5-73.1); Platelet Count Result 491 k/mm3 (150-375); Red Cell Distribution Width 13.6 % (11.5-14.5); White Blood Count 19.8 K/mm3 (4.5-10.0)
--- NOTE | 2024-11-03 07:05 | ED_ITS ---
HPI - General Adult General Chief complaint: Unspecified Stated complaint: stoma turning black Time Seen by Provider: 11/03/24 06:53 History of Present Illness HPI narrative: 68-year-old female presented to the emergency department for evaluation for nausea vomiting and concern for her new ostomy being discolored. Patient denies any associated abdominal pain. Patient is not passing any blood in her stoma. Patient was concerned that the stoma was dark red than the expected bright red. On 10/28 patient had a laparoscopic diverting loop ileostomy done by Dr. Otero history of cervical cancer, left-sided breast cancer and recently skin cancer. Recent biopsy showed showed undifferentiated carcinoma. Related Data Home Medications ?Medication ?Instructions ?Recorded ?Confirmed ?Last Taken ?Type amlodipine 5 mg tablet 5 mg PO DAILY 10/15/24 11/03/24 10/21/24 History aspirin 81 mg chewable tablet 81 mg PO DAILY 10/15/24 11/03/24 10/21/24 History ezetimibe 10 mg tablet 10 mg PO DAILY 10/15/24 11/03/24 10/21/24 History losartan 100 1 tablet PO DAILY 10/15/24 11/03/24 10/21/24 History mg-hydrochlorothiazide 12.5 mg tablet metoprolol succinate 50 mg 50 mg PO Q12H 10/15/24 11/03/24 10/21/24 History tablet,extended release 24 hr pravastatin 40 mg tablet 40 mg PO DAILY 10/15/24 11/03/24 10/21/24 History Allergies Allergy/AdvReac Type Severity Reaction Status Date / Time No Known Allergies Allergy Verified 10/23/24 09:33 Review of Systems 2 Review of Systems: All systems reviewed & are unremarkable except as noted in HPI and below PMFSH Past Medical History Medical History (Updated 11/03/24 @ 19:11 by Baldemar Greenberg MD) 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 Bowel obstruction Mass of colon Hyperlipidemia Hypertension History of cervical cancer History of breast cancer Surgical History Surgical History History of laparotomy She had some open repair for prolapse, possibly cystocele History of total abdominal hysterectomy History of lumpectomy of left breast Family History Family History Sibling Lung cancer COVID Diabetes mellitus Father Leukemia Mother Heart trouble Social History Social History Smoking status: Never smoker Second hand tobacco smoke exposure: No Alcohol intake: never Substance use: never Do You Feel Safe in your Home?: Yes Lack of Transportation: No Lack of Food: Never True Current Housing: I Have Housing Concerned About Future Housing: No Difficulty Paying Gas/Electric Bills: No Difficulty Paying for Meds: No Currently Unemployed: No Education: Decline to Answer Difficulty w/ Childcare or Family Care: No Spiritual care concerns: No Exam 2 Narrative: APPEARANCE: Well appearing, no pain, no distress, well-nourished. HEAD: normocephalic, atraumatic. EYES: PERRLA/EOMI, conjunctivae clear. NOSE: Normal no drainage EARS:TMS clear with good light reflex. THROAT: Pharynx clear, no exudate. NECK: Supple. No adenopathy, no masses. RESPIRATORY: Airway patent, respirations nonlabored. Clear to auscultation bilaterally, no rales, rhonchi, wheezing. CARDIOVASCULAR: Regular rate and rhythm without murmurs rubs or gallops. ABDOMINAL: oral bowel sounds an abdomen is soft and nondistended. patient does have an ileostomy bag in place, some darkening of the stoma MUSCULOSKELETAL: Moves all extremities. Strength/ROM intact, No edema, No calf tenderness. NEURO: Alert. Cranial nerves II through XII intact. Good gait. Good coordination SKIN: postop bruising across abdomen Course Vital Signs Vital signs: Vital Signs Temperature 97.9 F 11/03/24 06:44 Pulse Rate 103 H 11/03/24 06:44 Respiratory Rate 19 11/03/24 06:44 Pulse Oximetry 96 11/03/24 06:44 Oxygen Delivery Room Air 11/03/24 06:44 Temperature 98.2 F 11/03/24 16:00 Pulse Rate 106 H 11/03/24 18:00 Respiratory Rate 28 H 11/03/24 16:00 Blood Pressure 123/61 11/03/24 16:00 Pulse Oximetry 93 11/03/24 16:00 Oxygen Delivery Room Air 11/03/24 16:00 Medical Decision Making MDM Narrative Medical decision making narrative: 68-year-old female presented emergency department for evaluation for concern a discolored stoma. Patient is afebrile but does have an elevated white blood cell count of 19.8 and hemoglobin of 10.5. patient did have hypotension on arrival but did respond to aggressive IV fluid rehydration. Patient does have a new JAI on her CMP. Patient did have an elevated CRP at 11.6. Lipase is also elevated at 530. UA appears to be a dirty catch rather than active infection. Patient was negative for COVID RSV and influenza. CT scan was concerning for hematoma versus abscess. With the patient's new leukocytosis she was started on IV Zosyn. Surgery was consulted. Patient family were updated on the plan for admission. All questions concerns were addressed. Differential Diagnosis Differential Diagnosis: Necrotic stoma, hematoma, abscess, dehydration, sepsis, acute kidney injury Vital Signs Vital Signs: Vital Signs Temperature 97.9 F 11/03/24 06:44 Pulse Rate 103 H 11/03/24 06:44 Respiratory Rate 19 11/03/24 06:44 Pulse Oximetry 96 11/03/24 06:44 Oxygen Delivery Room Air 11/03/24 06:44 Temperature 98.2 F 11/03/24 16:00 Pulse Rate 106 H 11/03/24 18:00 Respiratory Rate 28 H 11/03/24 16:00 Blood Pressure 123/61 11/03/24 16:00 Pulse Oximetry 93 11/03/24 16:00 Oxygen Delivery Room Air 11/03/24 16:00 Lab Data 11/03/24 06:55 11/03/24 07:22 Labs: Lab Results 11/03/24 11/03/24 11/03/24 Range/Units 06:55 06:56 07:22 WBC 19.8 H (4.5-10.0) K/mm3 RBC 3.70 L (4.2-5.4) M/mm3 Hgb 10.5 L (12.0-15.0) g/dL Hct 33.1 L (37.0-47.0) % MCV 89.5 (80-100) fl MCH 28.4 (26-34) pg MCHC 31.7 L (32-36) g/dl RDW 13.6 (11.5-14.5) % Plt Count 491 H (150-375) k/mm3 MPV 10.2 (7.4-10.4) fl Immature Gran % (Auto) 1.1 H (0-0.5) % Neut % (Auto) 75.8 H (45.5-73.1) % Lymph % (Auto) 13.7 L (18.3-44.2) % Bertie % (Auto) 7.9 (2.6-8.5) % Eos % (Auto) 1.2 (0-4.4) % Baso % (Auto) 0.3 (0.2-1.2) % Lymph # (Auto) 2.71 (0.9-3.2) K/mm3 Bertie # (Auto) 1.6 H (0.1-0.6) K/mm3 Eos # (Auto) 0.2 (0-0.3) K/mm3 Baso # (Auto) 0.1 (0.0-0.1) K/mm3 Abs Immat Gran (auto) 0.21 H (0.00-0.031) K/mm3 Absolute Neuts (auto) 15.0 H (1.3-6.7) K/mm3 Absolute Nucleated RBC 0.000 (0.0-0.012) K/mm3 Nucleated RBC % 0.0 (0.0-0.2) % Sodium 133 L (137-145) mmol/L Potassium 3.4 (3.4-5.0) mmol/L Chloride 93 L (98-107) mmol/L Carbon Dioxide 28 (22-30) mmol/L Anion Gap 12 (4-12) mmol/L BUN 31 H D (7-17) mg/dL Creatinine 1.41 H (0.7-1.0) mg/dL Estim Creat Clear Calc 32 ml/min Estimated GFR 37 L (59 - ) Glucose 227 H (65-110) mg/dL Lactic Acid 5.1 H* (0.7-2.0) mmol/L Calcium 9.2 (8.4-10.2) mg/dL Total Bilirubin 1.5 H (0.2-1.3) mg/dL AST 37 H (14-36) U/L ALT 27 (6-35) U/L Alkaline Phosphatase 115 (38-126) U/L C-Reactive Protein 11.6 H (<1.0) mg/dL Total Protein 7.0 (6.3-8.2) g/dL Albumin 3.6 (3.5-5.1) g/dL Lipase 530 H (23-300) U/L Urine Color (Yellow) Urine Appearance (Clear) Urine pH (5.0-9.0) Ur Specific [place] (1.001-1.035) Urine Protein (Negative) mg/dL Urine Glucose (UA) (Negative) mg/dL Urine Ketones (Negative) mg/dL Ur Blood (Man) (Negative) Urine Nitrate (Negative) Urine Bilirubin (Negative) Urine Urobilinogen (<2.0) mg/dL Leukocyte Esterase Rfl (Negative) JULIAN/UL Urine RBC (0-2) /hpf Urine WBC (0-3) /hpf Urine WBC Clumps (None) /HPF Ur Squamous Epith Cells (Few) /hpf Urine Bacteria (None) /hpf Influenza A (RT-PCR) Negative (Negative) Influenza B (RT-PCR) Negative (Negative) RSV (RT-PCR) Negative (Negative) SARS-CoV-2 RNA (RT-PCR) Negative (Negative) 11/03/24 Range/Units 07:43 WBC (4.5-10.0) K/mm3 RBC (4.2-5.4) M/mm3 Hgb (12.0-15.0) g/dL Hct (37.0-47.0) % MCV (80-100) fl MCH (26-34) pg MCHC (32-36) g/dl RDW (11.5-14.5) % Plt Count (150-375) k/mm3 MPV (7.4-10.4) fl Immature Gran % (Auto) (0-0.5) % Neut % (Auto) (45.5-73.1) % Lymph % (Auto) (18.3-44.2) % Bertie % (Auto) (2.6-8.5) % Eos % (Auto) (0-4.4) % Baso % (Auto) (0.2-1.2) % Lymph # (Auto) (0.9-3.2) K/mm3 Bertie # (Auto) (0.1-0.6) K/mm3 Eos # (Auto) (0-0.3) K/mm3 Baso # (Auto) (0.0-0.1) K/mm3 Abs Immat Gran (auto) (0.00-0.031) K/mm3 Absolute Neuts (auto) (1.3-6.7) K/mm3 Absolute Nucleated RBC (0.0-0.012) K/mm3 Nucleated RBC % (0.0-0.2) % Sodium (137-145) mmol/L Potassium (3.4-5.0) mmol/L Chloride (98-107) mmol/L Carbon Dioxide (22-30) mmol/L Anion Gap (4-12) mmol/L BUN (7-17) mg/dL Creatinine (0.7-1.0) mg/dL Estim Creat Clear Calc ml/min Estimated GFR (59 - ) Glucose (65-110) mg/dL Lactic Acid (0.7-2.0) mmol/L Calcium (8.4-10.2) mg/dL Total Bilirubin (0.2-1.3) mg/dL AST (14-36) U/L ALT (6-35) U/L Alkaline Phosphatase (38-126) U/L C-Reactive Protein (<1.0) mg/dL Total Protein (6.3-8.2) g/dL Albumin (3.5-5.1) g/dL Lipase (23-300) U/L Urine Color Yellow (Yellow) Urine Appearance Sl cloudy (Clear) Urine pH 5.5 (5.0-9.0) Ur Specific [place] 1.030 (1.001-1.035) Urine Protein 1+ H (Negative) mg/dL Urine Glucose (UA) Negative (Negative) mg/dL Urine Ketones Negative (Negative) mg/dL Ur Blood (Man) 2+ H (Negative) Urine Nitrate Negative (Negative) Urine Bilirubin Negative (Negative) Urine Urobilinogen 0.2 (<2.0) mg/dL Leukocyte Esterase Rfl Negative (Negative) JULIAN/UL Urine RBC 6-10 H (0-2) /hpf Urine WBC 0-3 (0-3) /hpf Urine WBC Clumps None (None) /HPF Ur Squamous Epith Cells Moderate H (Few) /hpf Urine Bacteria 2+ H (None) /hpf Influenza A (RT-PCR) (Negative) Influenza B (RT-PCR) (Negative) RSV (RT-PCR) (Negative) SARS-CoV-2 RNA (RT-PCR) (Negative) Critical Care Time Critical Care Time Critical Care Time: Yes Total Critical Care Time: 35 Discharge Plan Discharge Clinical Impression: Abdominal wall hematoma, Acute kidney injury Patient Disposition: Still a Patient Condition: Serious
[2024-11-03] MEDS: LACTATED RINGERS 1,000 ML 999 ML IV CONT ×2 (07:07→07:25)
[2024-11-03 07:21] LABS: Lactic Acid Reflex 5.1 mmol/L (0.7-2.0)
--- OUTSIDE RECORDS SUMMARY | 2024-11-03 07:25 | XMS_ITS | Referral Summary ---
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 Gender Identity Not on file Sexual Orientation [...] Treatment Not on file Insurance [facility] MEDICARE Address: [facility] [address] [place] [address] [facility] MEDIC[facility] Address: [facility] [address] [place] [address] Care Teams Director Of Vocational Guidance Relationship Specialty Start Date End Date Richardson Correa PA [address] [place] [id number] PCP - General Internal Medicine 08/31/21 Richardson Correa PA [address] [place] [address] Internal Medicine 08/31/21 Aris Meyer MD [address] [place] [address] Consulting Physician Cardiology 08/31/21 Ghanshyam Calixto DO [address] [address] [phone] Medical Oncologist/Map Mounter Hematology and Oncology 08/31/21 Domingo Bearden MD [address] [place] [address] [phone] Surgeon General Surgery 08/31/21 Ebony Masters MD [address] [place] [address] [phone] Radiation Oncologist Radiation Oncology 05/14/24
--- OUTSIDE RECORDS SUMMARY | 2024-11-03 07:25 | XMS_ITS | Clinical Summary ---
Author Organization [facility] Address [address] [place] [address] Care Team Providers Care Juvenile Justice Officer Name Role Phone Richardson Correa Primary Care Provider + Aris Meyer MD Unavailable [phone] Allergies No known active allergies Medications [...] Comments Blood Pressure 167/88 09/26/2021 4:12 PM RN REHABILITATION Pulse 99 09/26/2021 4:12 PM RN REHABILITATION Temperature 37 C (98.6 F) 09/26/2021 4:12 PM RN REHABILITATION Respiratory Rate 20 09/26/2021 4:12 PM RN REHABILITATION Oxygen Saturation 93% 09/26/2021 4:12 PM RN REHABILITATION Inhaled Oxygen Concentration - - Weight 88.4 kg (194 lb 14.2 oz) 022 11:00 AM RN REHABILITATION Height 154.9 cm (5' 1) 09/26/2021 11:0 0 AM RN REHABILITATION Body Mass Index 36.82 09/26/2021 11:00 AM RN REHABILITATION Plan of Treatment Health Maintenance Due Date [...] patient's age to complete this topic Insurance [facility] Care Teams Juvenile Justice Officer Relationship Specialty Start Date End Date Richardson Correa PA PCP - General PHYSICIAN PROGRAM DIRECTOR 09/13/21 [place] [address] [place] [address] CARDIOVASCULAR DISEASE 09/13/21
--- OUTSIDE RECORDS SUMMARY | 2024-11-03 07:25 | XMS_ITS | Clinical Summary ---
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
--- OUTSIDE RECORDS SUMMARY | 2024-11-03 07:25 | XMS_ITS | Clinical Summary ---
Author Organization [facility] Address [address] [place] [address] Care Team Providers Care Public Stenographer Name Role Phone Richardson Correa Primary Care Provider + Richardson Correa Unavailable [phone] Aris Meyer MD Unavailable Ghanshyam Calixto DO Unavailable [phone] Domingo Bearden MD Unavailable [phone] Ebony Masters MD Unavailable [phone] Allergies No known active allergies Medications diclofenac [...] from 05/26/2021:Stage IB(cT2, cN0, cM0, G2, ER+, AR+, HER2-) - Signed by Ebony Masters MD on 08/31/2021 Pathologic stage from 09/26/2021:Stage IA(pT1b, pN0(sn), cM0, G2, ER+, AR+, HER2-) - Signed by Ebony Masters MD on 10/12/2021 Malignant neoplasm of upper- outer quadrant of left breast in female, estrogen receptor positive 08/10/2021 Immunizations Name Administration Dates Next Due Moderna SARS-CoV-2 Monovalen t Vaccination (12+ YRS) 07/18/2021,12/27/2020,11/30/2020 Pneumococcal Conjugate PCV 13 08/12/2021 Surgical History Surgery Date Site/Laterality Comments HYSTERECTOMY AR LIG/TRNSXJ FLP TUBE ABDL/VAG APPR UNI/BI Tubal Ligation - (Added by TW Conv) AR SALPINGO-OOPHORECTOMY COMPL/PRTL UNI/BI SPX Salpingo-oophorectomy Left Side - (Added by TW Conv) AR COLPOPEXY ABDOMINAL APPROACH Vaginal Surgery Colpopexy Abdominal [...] on file 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 Gender Identity Not on file Sexual Orientation [...] or Tdap) 02/02/2026 02/03/2016 Insurance [employer] [place] [address] MEDICARE [employer] [place] [id number] Care Teams Public Stenographer Relationship Specialty Start Date End Date Richardson Correa PA [address] [place] [id number] PCP - General Internal Medicine 08/31/21 Richardson Correa PA [address] [place] [address] Internal Medicine 08/31/21 Aris Meyer MD [address] [place] [address] Consulting Physician Cardiology 08/31/21 Ghanshyam Calixto DO [facility] [phone] Medical Oncologist/Assurance Manager Insurance Hematology and Oncology 08/31/21 Domingo Bearden MD [address] [place] [address] [address] [place] [address] Surgeon General Surgery 08/31/21 Ebony Masters MD [facility] [address] [place] [address] Radiation Oncologist Radiation Oncology 05/14/24
--- OUTSIDE RECORDS SUMMARY | 2024-11-03 07:25 | XMS_ITS ---
Author Organization [facility] Address [address] [place] [address] Care Team Providers Care Launderer Hand Name Role Phone Richardson Correa Primary Care Provider + Richardson Correa Unavailable [phone] Aris Meyer MD Unavailable Ghanshyam Calixto DO Unavailable [phone] Domingo Bearden MD Unavailable [phone] Ebony Masters MD Unavailable [phone] Active Problems Problem Noted Date Diagnosed Date Personal history of radiation therapy 12/26/2021 Malignant neoplasm of upper- outer quadrant of left breast in female, estrogen receptor positive 08/31/2021 Cancer Staging:Clinical stage from 05/26/2021:Stage IB(cT2, cN0, cM0, G2, ER+, CA+, HER2-) - Signed by Ebony Masters MD on 08/31/2021 Pathologic stage from 09/26/2021:Stage IA(pT1b, pN0(sn), cM0, G2, ER+, CA+, HER2-) - Signed by Ebony Masters MD [...]
[2024-11-03] MEDS: SODIUM CHLORIDE 0.9% IV 500 ML 999 ML IV CONT (07:34)
[2024-11-03 07:38] LABS: Influenza A QL RT-PCR Negative (Negative); Influenza B QL RT-PCR Negative (Negative); RSV RNA, RT-PCR Negative (Negative); SARS-CoV-2 RNA PCR Negative (Negative)
[2024-11-03 07:56] LABS: Alanine Aminotransferase 27 U/L (6-35); Albumin Level 3.6 g/dL (3.5-5.1); Alkaline Phosphatase 115 U/L (38-126); Anion Gap 12 mmol/L (4-12); Aspartate Amino Transferase 37 U/L (14-36); Bilirubin,Total 1.5 mg/dL (0.2-1.3); Blood Urea Nitrogen 31 mg/dL (7-17); Calcium 9.2 mg/dL (8.4-10.2); Carbon Dioxide 28 mmol/L (22-30); Chloride 93 mmol/L (98-107); Estimated CRCL calculation 32 ml/min; Estimated Glomerular Filt Rate 37; Glucose 227 mg/dL (65-110); Lipase 530 U/L (23-300); Potassium 3.4 mmol/L (3.4-5.0); Sodium 133 mmol/L (137-145)
[2024-11-03 08:13] LABS: CRP 11.6 mg/dL (<1.0)
[2024-11-03 08:42] LABS: Add Urine Microscopic? YES
[2024-11-03 08:44] LABS: Appearance Urine Sl Cloudy (Clear); Color Urine Yellow (Yellow); Protein Urine 1+ mg/dL (Negative)
[2024-11-03 08:45] LABS: Bilirubin Urine Negative (Negative); Blood Urine 2+ (Negative); Glucose Urine UA Negative (Negative); Ketones Urine Negative (Negative); Leukocyte Esterase Ur Negative LEU/UL (Negative); Nitrate Urine Negative (Negative); Urobilinogen Urine 0.2 mg/dL (<2.0); pH Urine 5.5 (5.0-9.0)
[2024-11-03 08:46] LABS: Bacteria Urine 2+ /hpf; Squamous Epithelial Cell Urine Moderate /hpf (Few); WBC Urine 0-3 /hpf (0-3)
[2024-11-03] MEDS: LACTATED RINGERS 1,000 ML 125 ML IV CONT ×3 (09:29→23:41)
[2024-11-03 10:10] LABS: Reflex Lactic Acid Yes or No Add Lactic
[2024-11-03] MEDS: PIPERACILLN/TAZ 3.375GM/NS50ML 3.375 GM/50 ML BAG IVPB ×3 (10:40→23:41)
[2024-11-03 10:46] LABS: Lactic Acid 1.9 mmol/L (0.7-2.0)
--- NOTE | 2024-11-03 12:43 | P.HP_ITS ---
H&P: HPI History of Present Illness Date/Time: 11/03/24 12:43 Chief Complaint: Nausea vomiting Narrative: This is a 60-year-old female who presented emergency department for evaluation for nausea vomiting and concern for her new ostomy being discolored. she was recently discahrged and since discharge, she was not able to hold anything down and has been feeling nauseated. she has not been eating well since then. no fever, chills. she does not report any abdominal pain. she had a laparoscopic diverting loop ileostomy done on 10/28/2024. On ED evaluation she was hypotensive for which she received IV fluids. Laboratory workup revealed WBC count of 19.8 hemoglobin 10.85 platelet of 491. Chem panel showed mild hyponatremia 133 creatinine 1.4 which is elevated from discharge creatinine. Lactic acid came back at 5.1. LFTs with bilirubin 1.5 AST 37 ALT 27 alkaline phosphatase 115 CRP was elevated at 11.6 lipase was elevated at 530. Repeat lactic acid after fluid resuscitation was 1.9. Her blood pressure also improved with fluid resuscitation. Urinalysis was negative for urine infection. Influenza RSV COVID swab was negative. CT abdomen pelvis was performed which showed 7.2 x 7.1 cm hematoma in the subcutaneous soft tissue at the idea STEMI site. Stable focal wall thickening and adjacent inflammatory change and/or carcinomatosis of the hepatic flexure of the colon. Possible focal wall irregularity at this region. Correlate for focal colitis/diverticulitis or possibly neoplasm. The appearance is similar to prior exam at this region. There is associated cholelithiasis. Focal atelectasis or possibly pneumonitis of the left lung base. She reports no respiratory symptoms with no cough or shortness of breath or chest pain. She is admitted in the setting for further treatment. Review of Systems Review of Systems: - CONSTITUTIONAL: Denies weight loss, fe jyoti and chills. - HEENT: Denies changes in vision and he aring - RESPIRATORY: Denies SOB and cough. - CV: Denies palpitations and CP. - GI: Denies abdominal pain, reports swapna sea, vomiting and denies diarrhea. - : Denies dysuria and urinary frequen cy. - MSK: Denies myalgia and joint pain. - SKIN: Denies rash and pruritus. - NEUROLOGICAL: Denies headache and sync ope. - PSYCHIATRIC: Denies recent changes in mood. Denies anxiety and depression. 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 Bowel obstruction Mass of colon Hyperlipidemia Hypertension History of cervical cancer History of breast cancer Surgical History Surgical History History of laparotomy She had some open repair for prolapse, possibly cystocele History of total abdominal hysterectomy History of lumpectomy of left breast Family History Family History Sibling Lung cancer COVID Diabetes mellitus Father Leukemia Mother Heart trouble Social History Social History Smoking status: Never smoker Second hand tobacco smoke exposure: No Alcohol intake: never Substance use: never Do You Feel Safe in your Home?: Yes Lack of Transportation: No Lack of Food: Never True Current Housing: I Have Housing Concerned About Future Housing: No Difficulty Paying Gas/Electric Bills: No Difficulty Paying for Meds: No Currently Unemployed: No Education: Decline to Answer Difficulty w/ Childcare or Family Care: No Spiritual care concerns: No Meds Home Medications and Allergies Home Medications ?Medication ?Instructions ?Recorded ?Confirmed ?Type amlodipine 5 mg tablet 5 mg PO DAILY 10/15/24 10/22/24 History aspirin 81 mg chewable tablet 81 mg PO DAILY 10/15/24 10/22/24 History ezetimibe 10 mg tablet 10 mg PO DAILY 10/15/24 10/22/24 History losartan 100 1 tablet PO DAILY 10/15/24 10/22/24 History mg-hydrochlorothiazide 12.5 mg tablet metoprolol succinate 50 mg 50 mg PO Q12H 10/15/24 10/22/24 History tablet,extended release 24 hr pravastatin 40 mg tablet 40 mg PO DAILY 10/15/24 10/22/24 History oxycodone-acetaminophen 7.5 mg-325 1 tablet PO Q6H PRN pain 5 days 10/30/24 Rx mg tablet #20 tabs Allergies Allergy/AdvReac Type Severity Reaction Status Date / Time No Known Allergies Allergy Verified 10/23/24 09:33 Vital Signs Vital Signs - 24 hr 11/03/24 06:44 11/03/24 06:50 11/03/24 06:52 Temperature 97.9 F Pulse Rate 103 H 104 H 94 Respiratory Rate 19 20 Blood Pressure Pulse Oximetry 96 96 Oxygen Delivery Room Air 11/03/24 06:52 11/03/24 06:52 11/03/24 07:00 Temperature Pulse Rate 94 92 Respiratory Rate 17 18 15 Blood Pressure 108/56 L Pulse Oximetry 94 92 Oxygen Delivery 11/03/24 07:02 11/03/24 07:03 11/03/24 07:04 Temperature Pulse Rate 93 93 92 Respiratory Rate 22 H 22 H 19 Blood Pressure 60/47 L 87/46 L Pulse Oximetry 96 96 96 Oxygen Delivery 11/03/24 07:08 11/03/24 07:09 11/03/24 07:11 Temperature Pulse Rate 91 93 90 Respiratory Rate 17 18 21 H Blood Pressure 87/53 L 92/55 L 96/53 L Pulse Oximetry 93 91 92 Oxygen Delivery 11/03/24 07:26 11/03/24 07:27 11/03/24 07:34 Temperature Pulse Rate 92 93 100 Respiratory Rate 19 22 H 30 H Blood Pressure 100/50 L Pulse Oximetry 96 94 Oxygen Delivery 11/03/24 07:47 11/03/24 08:10 11/03/24 08:14 Temperature Pulse Rate 95 103 H 97 Respiratory Rate 18 21 H 19 Blood Pressure 117/55 L Pulse Oximetry 97 97 96 Oxygen Delivery 11/03/24 08:15 11/03/24 08:30 11/03/24 08:31 Temperature Pulse Rate 96 98 98 Respiratory Rate 14 18 21 H Blood Pressure 104/55 L Pulse Oximetry 100 94 99 Oxygen Delivery 11/03/24 08:45 11/03/24 08:46 11/03/24 09:03 Temperature Pulse Rate 100 102 H 115 H Respiratory Rate 24 H 21 H Blood Pressure 115/58 L Pulse Oximetry 95 92 Oxygen Delivery 11/03/24 09:05 11/03/24 09:06 11/03/24 09:37 Temperature Pulse Rate 95 95 93 Respiratory Rate 21 H 20 19 Blood Pressure 102/42 L Pulse Oximetry 94 92 91 Oxygen Delivery 11/03/24 09:45 11/03/24 09:46 11/03/24 10:13 Temperature Pulse Rate 95 95 99 Respiratory Rate 19 23 H 22 H Blood Pressure 112/64 Pulse Oximetry 93 96 100 Oxygen Delivery 11/03/24 10:15 11/03/24 10:36 11/03/24 10:54 Temperature Pulse Rate 102 H 100 103 H Respiratory Rate 21 H 20 17 Blood Pressure Pulse Oximetry 93 94 91 Oxygen Delivery 11/03/24 11:02 11/03/24 11:35 11/03/24 11:53 Temperature Pulse Rate 98 98 95 Respiratory Rate 26 H 21 H 18 Blood Pressure Pulse Oximetry 90 Oxygen Delivery 11/03/24 12:15 11/03/24 12:16 Temperature Pulse Rate 91 101 H Respiratory Rate 17 18 Blood Pressure 117/78 Pulse Oximetry Oxygen Delivery Exam Narrative: APPEARANCE: Well appearing, no pain, no distress, well-nourished. HEAD: normocephalic, atraumatic. EYES: PERRLA/EOMI, conjunctivae clear. NOSE: Normal no drainage NECK: Supple. No adenopathy, no masses. RESPIRATORY: Airway patent, respirations nonlabored. Clear to auscultation bilaterally, no rales, rhonchi, wheezing. CARDIOVASCULAR: Regular rate and rhythm without murmurs rubs or gallops. ABDOMINAL: Normoactive bowel sounds, soft distended, patient does have an ileostomy bag in place, some darkening of the stoma noted MUSCULOSKELETAL: Moves all extremities. Strength/ROM intact, No edema, No calf tenderness. NEURO: Alert and oriented x3. Cranial nerves II through XII intact. No focal deficits SKIN: postop bruising across abdomen H&P: Results Labs Labs: Short CBC 11/03/24 Range/Units 06:55 WBC 19.8 H (4.5-10.0) K/mm3 Hgb 10.5 L (12.0-15.0) g/dL Hct 33.1 L (37.0-47.0) % Plt Count 491 H (150-375) k/mm3 BMP 11/03/24 07:22 Sodium 133 L Potassium 3.4 Chloride 93 L Carbon Dioxide 28 BUN 31 H D Creatinine 1.41 H Glucose 227 H Calcium 9.2 Liver Function 11/03/24 Range/Units 07:22 Total Bilirubin 1.5 H (0.2-1.3) mg/dL AST 37 H (14-36) U/L ALT 27 (6-35) U/L Alkaline Phosphatase 115 (38-126) U/L Albumin 3.6 (3.5-5.1) g/dL Urine 11/03/24 Range/Units 07:43 Urine Color Yellow (Yellow) Urine Appearance Sl cloudy (Clear) Urine pH 5.5 (5.0-9.0) Ur Specific [place] 1.030 (1.001-1.035) Urine Protein 1+ H (Negative) mg/dL Urine Glucose (UA) Negative (Negative) mg/dL Assessment and Plan Assessment and plan (1) Hypertension: Code(s): I10 - Essential (primary) hypertension Status: Chronic (2) Hyperlipidemia: Code(s): E78.5 - Hyperlipidemia, unspecified Status: Chronic (3) Colitis: Code(s): K52.9 - Noninfective gastroenteritis and colitis, unspecified Status: Acute (4) Nausea and vomiting in adult: Code(s): R11.2 - Nausea with vomiting, unspecified Status: Resolved (5) Leukocytosis: Code(s): D72.829 - Elevated white blood cell count, unspecified Status: Acute (6) Undifferentiated carcinoma of colon: Code(s): C18.9 - Malignant neoplasm of colon, unspecified Status: Acute Plan This is a 60-year-old female who presented emergency department for evaluation for nausea vomiting and concern for her new ostomy being discolored. she was recently discahrged and since discharge, she was not able to hold anything down and has been feeling nauseated. she has not been eating well since then. no fever, chills. she does not report any abdominal pain. she had a laparoscopic diverting loop ileostomy done on 10/28/2024. On ED evaluation she was hypotensive for which she received IV fluids. Laboratory workup revealed WBC count of 19.8 hemoglobin 10.85 platelet of 491. Chem panel showed mild hyponatremia 133 creatinine 1.4 which is elevated from discharge creatinine. Lactic acid came back at 5.1. LFTs with bilirubin 1.5 AST 37 ALT 27 alkaline phosphatase 115 CRP was elevated at 11.6 lipase was elevated at 530. Repeat lactic acid after fluid resuscitation was 1.9. Her blood pressure also improved with fluid resuscitation. Urinalysis was negative for urine infection. Influenza RSV COVID swab was negative. CT abdomen pelvis was performed which showed 7.2 x 7.1 cm hematoma in the subcutaneous soft tissue at the idea STEMI site. Stable focal wall thickening and adjacent inflammatory change and/or carcinomatosis of the hepatic flexure of the colon. Possible focal wall irregularity at this region. Correlate for focal colitis/diverticulitis or possibly neoplasm. The appearance is similar to prior exam at this region. There is associated cholelithiasis. Focal atelectasis or possibly pneumonitis of the left lung base. She reports no respiratory symptoms with no cough or shortness of breath or chest pain. She is admitted in the setting for further treatment. Patient has been pancultured. Will continue with IV Zosyn She recently presented with bowel obstruction. Underwent colonoscopy evaluation on 10/23/2024 which showed few diverticula in sigmoid colon partially obstructing large friable infiltrative malignant appearing circumferential mass observed in transverse colon size about 3-4 cm noted small lumen probably 7-8 mm diameter and unable to traverse with scope and reach cecum. Biopsies were taken. Colonic biopsy came back as undifferentiated carcinoma General surgery was subsequently consulted and underwent diverting loop ileostomy with omental biopsy on 10/28/2024. This biopsy came back as on differentiated carcinoma as well. CEA level 0.7 Patient is planned to follow up with Dr. Buchanan as outpatient. Hypertension Obesity Diverticulosis DVT prophylaxis SCDs Code status full code Hospitalist MIPS Advance Care Plan I have confirmed that the patient's Advanced Care Plan is present, code status is documented, or surrogate decision maker is listed in patient medical record.: Yes Medication Reconciliation I have utilized all available resources to obtain, update and review the patients current medications (includes all prescriptions, OTC, herbals, cannabis, and nutritional supplements).: Yes
--- NOTE | 2024-11-03 13:19 | PC.NURSE ---
This patient, Hayden Estrella, was admitted to IMU status, and placed in Intensive Care Unit-6. Patient/family oriented to hospital policies and general routines including ID bracelet, bed and alarms, visiting hours, pain management, procedures, bathroom and other care routines, personal items, smoking policy, room service/diet, and visiting hours. Valuables list has been completed. Information on how to activate the Rapid Response Team has been discussed. Patient/Family are encouraged to report perceived risks to care and to ask questions if they do not understand what they are told or what they should do.
--- OUTSIDE RECORDS SUMMARY | 2024-11-03 13:36 | XMS_ITS | Clinical Summary ---
Author Organization [facility] Address [address] [place] [address] Care Team Providers Care Senior Strategy Manager Name Role Phone Richardson Correa Primary Care Provider + Aris Meyer MD Unavailable [phone] Allergies No known active allergies Medications [...] Comments Blood Pressure 167/88 09/26/2021 4:12 PM PLATE INSPECTOR Pulse 99 09/26/2021 4:12 PM PLATE INSPECTOR Temperature 37 C (98.6 F) 09/26/2021 4:12 PM PLATE INSPECTOR Respiratory Rate 20 09/26/2021 4:12 PM PLATE INSPECTOR Oxygen Saturation 93% 09/26/2021 4:12 PM PLATE INSPECTOR Inhaled Oxygen Concentration - - Weight 88.4 kg (194 lb 14.2 oz) 022 11:00 AM PLATE INSPECTOR Height 154.9 cm (5' 1) 09/26/2021 11:0 0 AM PLATE INSPECTOR Body Mass Index 36.82 09/26/2021 11:00 AM PLATE INSPECTOR Plan of Treatment Health Maintenance Due Date [...] patient's age to complete this topic Insurance [facility] Care Teams Senior Strategy Manager Relationship Specialty Start Date End Date Richardson Correa PA PCP - General PHYSICIAN CAN TECHNICIAN 09/13/21 [place] [id number] [place] [address] CARDIOVASCULAR DISEASE 09/13/21
--- OUTSIDE RECORDS SUMMARY | 2024-11-03 13:36 | XMS_ITS | Referral Summary ---
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 Gender Identity Not on file Sexual Orientation [...] Treatment Not on file Insurance [facility] Address: [facility] [address] [place] [address] [facility]ARE [facility] Address[facility] [address] [place] [address] Care Teams Marketing Operations Manager Relationship Specialty Start Date End Date Richardson Correa PA [address] [place] [address] PCP - General Internal Medicine 08/31/21 Richardson Correa PA [address] [place] [address] Internal Medicine 08/31/21 Aris Meyer MD [address] [place] [address] Consulting Physician Cardiology 08/31/21 Ghanshyam Calixto DO [address] [place] [address] [id number] Medical Oncologist/Installer Hematology and Oncology 08/31/21 Domingo Bearden MD [address] [place] [address] [phone] Surgeon General Surgery 08/31/21 Ebony Masters MD [address] [place] [address] [phone] Radiation Oncologist Radiation Oncology 05/14/24
--- OUTSIDE RECORDS SUMMARY | 2024-11-03 13:36 | XMS_ITS | Clinical Summary ---
Author Organization [facility] Address [address] [place] [address] Care Team Providers Care Flattening Press Operator Name Role Phone Richardson Correa Primary Care Provider + Richardson Correa Unavailable [phone] Aris Meyer MD Unavailable Ghanshyam Calixto DO Unavailable [phone] Domingo Bearden MD Unavailable [phone] Ebony Masters MD Unavailable [phone] Allergies No known active allergies Medications diclofenac [...] from 05/26/2021:Stage IB(cT2, cN0, cM0, G2, ER+, WA+, HER2-) - Signed by Ebony Masters MD on 08/31/2021 Pathologic stage from 09/26/2021:Stage IA(pT1b, pN0(sn), cM0, G2, ER+, WA+, HER2-) - Signed by Ebony Masters MD on 10/12/2021 Malignant neoplasm of upper- outer quadrant of left breast in female, estrogen receptor positive 08/10/2021 Immunizations Name Administration Dates Next Due Moderna SARS-CoV-2 Monovalen t Vaccination (12+ YRS) 07/18/2021,12/27/2020,11/30/2020 Pneumococcal Conjugate PCV 13 08/12/2021 Surgical History Surgery Date Site/Laterality Comments HYSTERECTOMY WA LIG/TRNSXJ FLP TUBE ABDL/VAG APPR UNI/BI Tubal Ligation - (Added by TW Conv) [place] SALPINGO-OOPHORECTOMY COMPL/PRTL UNI/BI SPX Salpingo-oophorectomy Left Side - (Added by TW Conv) WA COLPOPEXY ABDOMINAL APPROACH Vaginal Surgery Colpopexy Abdominal [...] on file Legal Sex 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 Gender Identity Not on file Sexual Orientation [...] or Tdap) 02/02/2026 02/03/2016 Insurance [employer] [place] [address] [employer] [place] [id number] Care Teams Flattening Press Operator Relationship Specialty Start Date End Date Richardson Correa PA [address] [place] [id number] PCP - General Internal Medicine 08/31/21 Richardson Correa PA [address] [place] [address] Internal Medicine 08/31/21 Aris Meyer MD [address] [place] [address] Consulting Physician Cardiology 08/31/21 Ghanshyam Calixto DO [facility] [phone] Medical Oncologist/Scrub Nurse Hematology and Oncology 08/31/21 Domingo Bearden MD [address] [place] [address] [address] [place] [address] Surgeon General Surgery 08/31/21 Ebony Masters MD [facility]8 [facility] [address] [place] [address] Radiation Oncologist Radiation Oncology 05/14/24
--- OUTSIDE RECORDS SUMMARY | 2024-11-03 13:36 | XMS_ITS | Clinical Summary ---
Author Organization [facility] Abisai antony [facility] Address [address] [facility] [place] [address] Care Team Providers Care Chemical Operations Specialist Name Role Phone Unavailable Primary Care Provider Unavailabl e Social History Tobacco Use Types Packs/Day Years Used Date Smoking Tobacco: Never Assessed Comments Unknown Sex and Gender Information Value Date Recorded Sex Assigned at Not on file Legal Sex Female 12:29 PM GUARD RAIL INSTALLER Gender Identity Not on file Sexual Orientation Not on file Plan of Treatment Upcoming Encounters Date Type Department Care Team (Late st Contact Info) Description 11/04/2024 4:00 PM GUARD RAIL INSTALLER Office Visit [facility] Oncology and Hematology - [place] [address] [facility] [address] [place] [address] Abdulaziz Buchanan MD [address] [facility] [address] [place] [address] Health Maintenance Due Date Last [...]
--- OUTSIDE RECORDS SUMMARY | 2024-11-03 13:36 | XMS_ITS ---
Author Organization [facility] Address [address] [place] [address] Care Team Providers Care Crushed Stone Grader Name Role Phone Richardson Correa Primary Care Provider + Richardson Correa Unavailable [phone] Aris Meyer MD Unavailable Ghanshyam Calixto DO Unavailable [phone] Domingo Bearden MD Unavailable [phone] Ebony Masters MD Unavailable [phone] Active Problems Problem Noted Date Diagnosed Date Personal history of radiation therapy 12/26/2021 Malignant neoplasm of upper- outer quadrant of left breast in female, estrogen receptor positive 08/31/2021 Cancer Staging:Clinical stage from 05/26/2021:Stage IB(cT2, cN0, cM0, G2, ER+, VT+, HER2-) - Signed by Ebony Masters MD on 08/31/2021 Pathologic stage from 09/26/2021:Stage IA(pT1b, pN0(sn), cM0, G2, ER+, VT+, HER2-) - Signed by Ebony Masters MD [...]
--- NOTE | 2024-11-03 15:09 | P.CONGS_ITS ---
Assessment and Plan Assessment and plan (1) Sepsis: Qualifiers: Sepsis acute organ dysfunction status: unspecified Sepsis type: sepsis due to unspecified organism Qualified Code(s): A41.9 - Sepsis, unspecified organism Code(s): A41.9 - Sepsis, unspecified organism Status: Acute Assessment and Plan: Patient meets sepsis criteria with leukocytosis, hypotension, mild tachycardia, and lactic acidosis. She was started on broad-spectrum IV antibiotics. Source of leukocytosis is not clear. The CT scan showed a hematoma at the ileostomy site, but there is no signs of this being infected on exam. No other intraabdominal infectious source seen on CT. UA negative for UTI. Viral panel was negative. She denies any other additional symptoms other than the vomiting the last 2 days, which has improved. Her incisions appear to be healing well without any sings of infection. CT scan did mention focal atelectasis versus possibly pneumonitis in the left lung base, but she has not respiratory complaints or symptoms. Continue IV antibiotics and trend labs. Blood cultures were ordered. (2) Ileostomy in place: Code(s): Z93.2 - Ileostomy status Status: Acute Assessment and Plan: S/p laparoscopic diverting loop ileostomy on 10/27/24 for metastatic colon cancer. Her daughter had reported concerns of the stoma appearing black this morning. The ostomy appliance was taken down in the ED and her stoma is dark and sloughing, but appears viable. She has had good output from the ileostomy without any evidence of an obstruction. The CT scan of the abdomen and pelvis showed a 7.2 cm hematoma in the subcutaneous tissue at the ileostomy site. This does not appear to be compromising the ileostomy or causing an obstruction. Will continue to monitor. (3) 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: Code(s): C18.9 - Malignant neoplasm of colon, unspecified; C77.2 - Secondary and unspecified malignant neoplasm of intra-abdominal lymph nodes Status: Acute (4) Nausea and vomiting in adult: Code(s): R11.2 - Nausea with vomiting, unspecified Status: Resolved Assessment and Plan: Cause of vomiting is unclear. She has not been vomiting since yesterday afternoon and denies any nausea today. Her CT scan does not show any signs of a bowel obstruction and her ileostomy has been functioning well. Viral panel negative on admission. Continue antiemetics as needed and monitor for now. (5) JAI (acute kidney injury): Code(s): N17.9 - Acute kidney failure, unspecified Status: Acute Assessment and Plan: Creatinine at 1.4 on admission. Likely related to dehydration with recent vomiting and poor oral intake. Continue IV fluid hydration, monitor labs. Plan I have discussed the patient's case and plan of care with Dr. Otero. History of Present Illness Consult details Consult date: 11/03/24 Reason for consult: other (Ostomy complication) Requesting physician: Baldemar Greenberg MD Narrative: This is a 68-year-old woman who is known to our service from recent hospitalization, when she was found to have a near obstructing transverse colon mass. She ultimately underwent laparoscopic diverting loop ileostomy, laparoscopic incisional omental biopsy, and placement of right subclavian vein port a catheter on 10/27/[address] Otero. Postoperatively, her diet was advanced and her ileostomy was functioning well. She was able to be discharged last , 10/30/2024. At that time, she was tolerating a diet and her ileostomy appeared slightly dark, but was viable. She reports doing well initially, but she had been sticking to mostly a liquid diet. On Sunday, she developed nausea and vomiting. She was not able to keep any food or liquids down. She reports emptying her ileostomy bag multiple times yesterday. She denies any decreased ileostomy output. Denies any bloody output. Her daughter change her ileostomy back today, and thought it appeared black therefore they came into the ED for evaluation. In the ED, she was hypotensive with blood pressure as low as 60/47 and tachycardia with a rate in the low 100s. She was afebrile. Labs showed a white blood cell count 92418, lactic acid 5.1, sodium 133, BUN 31, creatinine 1.41, bilirubin 1.5, AST 37, ALT 27, lipase 530. UA negative for UTI. Influenza a/B, RSV, COVID all negative. CT scan of the abdomen and pelvis showed a 7.2 x 7.1 cm hematoma in the subcutaneous soft tissues at the ileostomy site. There is stable focal wall thickening and adjacent inflammatory change at the hepatic flexure of the colon as seen on previous scans where she was found to have a malignancy. Also seen is a calcified gallstone in the otherwise normal gallbladder and focal atelectasis or possibly pneumonitis in the left lung base. She received 2.5 L of IV fluids in the ED and blood pressure improved. Repeat lactic acid down to 1.9. She is seen in the ED with the wound care/ostomy nurses for evaluation. She denies any abdominal pain or nausea at this time. She has not had any vomiting since yesterday afternoon. She reports emptying her ileostomy bag prior to her arrival in the ED. Review of Systems 2 Review of Systems: All systems reviewed & are unremarkable except as noted in HPI and below PMFSH Past Medical History Medical History (Updated 11/03/24 @ 15:40 by KIRSTY Hall) 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 Bowel obstruction Mass of colon Hyperlipidemia Hypertension History of cervical cancer History of breast cancer Surgical History Surgical History History of laparotomy She had some open repair for prolapse, possibly cystocele History of total abdominal hysterectomy History of lumpectomy of left breast Family History Family History Sibling Lung cancer COVID Diabetes mellitus Father Leukemia Mother Heart trouble Social History Social History Smoking status: Never smoker Second hand tobacco smoke exposure: No Alcohol intake: never Substance use: never Do You Feel Safe in your Home?: Yes Lack of Transportation: No Lack of Food: Never True Current Housing: I Have Housing Concerned About Future Housing: No Difficulty Paying Gas/Electric Bills: No Difficulty Paying for Meds: No Currently Unemployed: No Education: Decline to Answer Difficulty w/ Childcare or Family Care: No Spiritual care concerns: No Meds Home Medications and Allergies Home Medications ?Medication ?Instructions ?Recorded ?Confirmed ?Type amlodipine 5 mg tablet 5 mg PO DAILY 10/15/24 11/03/24 History aspirin 81 mg chewable tablet 81 mg PO DAILY 10/15/24 11/03/24 History ezetimibe 10 mg tablet 10 mg PO DAILY 10/15/24 11/03/24 History losartan 100 1 tablet PO DAILY 10/15/24 11/03/24 History mg-hydrochlorothiazide 12.5 mg tablet metoprolol succinate 50 mg 50 mg PO Q12H 10/15/24 11/03/24 History tablet,extended release 24 hr pravastatin 40 mg tablet 40 mg PO DAILY 10/15/24 11/03/24 History oxycodone-acetaminophen 7.5 mg-325 1 tablet PO Q6H PRN pain 5 days 10/30/24 11/03/24 Rx mg tablet #20 tabs Allergies Allergy/AdvReac Type Severity Reaction Status Date / Time No Known Allergies Allergy Verified 10/23/24 09:33 Vital Signs Vital Signs - 24 hr 11/03/24 06:44 11/03/24 06:50 11/03/24 06:52 Temperature 97.9 F Pulse Rate 103 H 104 H 94 Respiratory Rate 19 20 Blood Pressure Pulse Oximetry 96 96 Oxygen Delivery Room Air 11/03/24 06:52 11/03/24 06:52 11/03/24 07:00 Temperature Pulse Rate 94 92 Respiratory Rate 17 18 15 Blood Pressure 108/56 L Pulse Oximetry 94 92 Oxygen Delivery 11/03/24 07:02 11/03/24 07:03 11/03/24 07:04 Temperature Pulse Rate 93 93 92 Respiratory Rate 22 H 22 H 19 Blood Pressure 60/47 L 87/46 L Pulse Oximetry 96 96 96 Oxygen Delivery 11/03/24 07:08 11/03/24 07:09 11/03/24 07:11 Temperature Pulse Rate 91 93 90 Respiratory Rate 17 18 21 H Blood Pressure 87/53 L 92/55 L 96/53 L Pulse Oximetry 93 91 92 Oxygen Delivery 11/03/24 07:26 11/03/24 07:27 11/03/24 07:34 Temperature Pulse Rate 92 93 100 Respiratory Rate 19 22 H 30 H Blood Pressure 100/50 L Pulse Oximetry 96 94 Oxygen Delivery 11/03/24 07:47 11/03/24 08:10 11/03/24 08:14 Temperature Pulse Rate 95 103 H 97 Respiratory Rate 18 21 H 19 Blood Pressure 117/55 L Pulse Oximetry 97 97 96 Oxygen Delivery 11/03/24 08:15 11/03/24 08:30 11/03/24 08:31 Temperature Pulse Rate 96 98 98 Respiratory Rate 14 18 21 H Blood Pressure 104/55 L Pulse Oximetry 100 94 99 Oxygen Delivery 11/03/24 08:45 11/03/24 08:46 11/03/24 09:03 Temperature Pulse Rate 100 102 H 115 H Respiratory Rate 24 H 21 H Blood Pressure 115/58 L Pulse Oximetry 95 92 Oxygen Delivery 11/03/24 09:05 11/03/24 09:06 11/03/24 09:37 Temperature Pulse Rate 95 95 93 Respiratory Rate 21 H 20 19 Blood Pressure 102/42 L Pulse Oximetry 94 92 91 Oxygen Delivery 11/03/24 09:45 11/03/24 09:46 11/03/24 10:13 Temperature Pulse Rate 95 95 99 Respiratory Rate 19 23 H 22 H Blood Pressure 112/64 Pulse Oximetry 93 96 100 Oxygen Delivery 11/03/24 10:15 11/03/24 10:36 11/03/24 10:54 Temperature Pulse Rate 102 H 100 103 H Respiratory Rate 21 H 20 17 Blood Pressure Pulse Oximetry 93 94 91 Oxygen Delivery 11/03/24 11:02 11/03/24 11:35 11/03/24 11:53 Temperature Pulse Rate 98 98 95 Respiratory Rate 26 H 21 H 18 Blood Pressure Pulse Oximetry 90 Oxygen Delivery 11/03/24 12:15 11/03/24 12:16 11/03/24 14:00 Temperature Pulse Rate 91 101 H Respiratory Rate 17 18 Blood Pressure 117/78 Pulse Oximetry Oxygen Delivery Room Air 11/03/24 14:00 11/03/24 14:20 Temperature 99.0 F Pulse Rate 97 93 Respiratory Rate 17 Blood Pressure 127/67 Pulse Oximetry 92 Oxygen Delivery Exam 2 Const: General: comfortable and no acute distress Nutritional Appearance: a verage body habitus Orientation/consciousness: patient oriented x3 HENMT: Head: normocephalic and atraumatic Ears: hearing grossly normal bilaterally Mouth: Yes moist mucous membranes Eyes: General: appearance normal, both eyes and all related structures P upils: Equal, round and reactive pupils present Neck: Neck: normal visual inspection and full ROM Chest: Other: Right ana catheter in place with incision dry and glue still intact. No erythema or drainage from the incision. Healing well. Resp: Effort & Inspection: no respiratory distress Auscultation: clear to auscultation bilaterally Cardio: Rate: regular rate Rhythm: regular rhythm Peripheral pulses: P eripheral pulses 2+ throughout GI: Auscultation: normal bowel sounds Other: Abdomen nondistended and soft with trocar site incisions with no erythema or drainage. There is bruising noted in the mid lower abdomen. Her ileostomy is in the right lower quadrant with firmness palpable in the subcu tissues around the ileostomy consistent with the hematoma seen on CT scan. The overlying skin over the hematoma and around the ileostomy appears healthy with no skin breakdown, no bruising, no redness, and only minimal tenderness in this area. The ileostomy appliance was removed and she has the loop ileostomy bar in place. This stoma is slightly dark with some sloughing, but appears viable. There is active spilling of liquid brown stool from ileostomy, which appears to be functioning well. Ostomy nurse digitally probed to the opening of the loop ileostomy with no tightness or palpable stricturing past the stoma. Skin: General skin exam: normal color Neuro: General: moves all extremities and no focal motor deficits Speech: n ormal speech Motor exam (neuro): 5/5 motor strength present throughout Extrem: General: normal to inspection and no edema Psych: Mental Status: mental status grossly normal Attitude: cooperative Insight: Good insight present (Psych) Judgement: Good judgement present (Psych) Results Labs 11/03/24 06:55 11/03/24 07:22 Labs: Abnormal lab results 11/03/24 11/03/24 11/03/24 Range/Units 06:55 07:22 07:43 WBC 19.8 H (4.5-10.0) K/mm3 RBC 3.70 L (4.2-5.4) M/mm3 Hgb 10.5 L (12.0-15.0) g/dL Hct 33.1 L (37.0-47.0) % MCHC 31.7 L (32-36) g/dl Plt Count 491 H (150-375) k/mm3 Immature Gran % (Auto) 1.1 H (0-0.5) % Neut % (Auto) 75.8 H (45.5-73.1) % Lymph % (Auto) 13.7 L (18.3-44.2) % [place] # (Auto) 1.6 H (0.1-0.6) K/mm3 Abs Immat Gran (auto) 0.21 H (0.00-0.031) K/mm3 Absolute Neuts (auto) 15.0 H (1.3-6.7) K/mm3 Sodium 133 L (137-145) mmol/L Chloride 93 L (98-107) mmol/L BUN 31 H D (7-17) mg/dL Creatinine 1.41 H (0.7-1.0) mg/dL Estimated GFR 37 L (59 - ) Glucose 227 H (65-110) mg/dL Lactic Acid 5.1 H* (0.7-2.0) mmol/L Total Bilirubin 1.5 H (0.2-1.3) mg/dL AST 37 H (14-36) U/L C-Reactive Protein 11.6 H (<1.0) mg/dL Lipase 530 H (23-300) U/L Urine Protein 1+ H (Negative) mg/dL Ur Blood (Man) 2+ H (Negative) Urine RBC 6-10 H (0-2) /hpf Ur Squamous Epith Cells Moderate H (Few) /hpf Urine Bacteria 2+ H (None) /hpf Diabetes panel 11/03/24 Range/Units 07:22 Sodium 133 L (137-145) mmol/L Potassium 3.4 (3.4-5.0) mmol/L Chloride 93 L (98-107) mmol/L Carbon Dioxide 28 (22-30) mmol/L BUN 31 H D (7-17) mg/dL Creatinine 1.41 H (0.7-1.0) mg/dL Glucose 227 H (65-110) mg/dL Calcium 9.2 (8.4-10.2) mg/dL AST 37 H (14-36) U/L ALT 27 (6-35) U/L Alkaline Phosphatase 115 (38-126) U/L Total Protein 7.0 (6.3-8.2) g/dL Albumin 3.6 (3.5-5.1) g/dL Calcium panel 11/03/24 Range/Units 07:22 Calcium 9.2 (8.4-10.2) mg/dL Albumin 3.6 (3.5-5.1) g/dL Pituitary panel 11/03/24 Range/Units 07:22 Sodium 133 L (137-145) mmol/L Potassium 3.4 (3.4-5.0) mmol/L Chloride 93 L (98-107) mmol/L Carbon Dioxide 28 (22-30) mmol/L BUN 31 H D (7-17) mg/dL Creatinine 1.41 H (0.7-1.0) mg/dL Glucose 227 H (65-110) mg/dL Calcium 9.2 (8.4-10.2) mg/dL Adrenal panel 11/03/24 Range/Units 07:22 Sodium 133 L (137-145) mmol/L Potassium 3.4 (3.4-5.0) mmol/L Chloride 93 L (98-107) mmol/L Carbon Dioxide 28 (22-30) mmol/L BUN 31 H D (7-17) mg/dL Creatinine 1.41 H (0.7-1.0) mg/dL Glucose 227 H (65-110) mg/dL Calcium 9.2 (8.4-10.2) mg/dL Total Bilirubin 1.5 H (0.2-1.3) mg/dL AST 37 H (14-36) U/L ALT 27 (6-35) U/L Alkaline Phosphatase 115 (38-126) U/L Total Protein 7.0 (6.3-8.2) g/dL Albumin 3.6 (3.5-5.1) g/dL All other labs normal. Imaging Additional studies: ITS Impressions Abdomen/Pelvis CT 11/03/24 08:16 Impression: Status post interval surgery with right lower quadrant double barrel ileostomy present. There is a 7.2 x 7.1 cm hematoma in the subcutaneous soft tissues at the ileostomy site. Stable focal wall thickening and adjacent inflammatory change and/or carcinomatosis at the hepatic flexure the colon. Possible focal wall irregularity at this region. Correlate for focal colitis/diverticulitis or possibly neoplasm. Appearance is similar to prior exam at this region. Cholelithiasis. Focal atelectasis or possibly pneumonitis the left lung base.
[2024-11-03] MEDS: BENZONATATE 100 MG CAPSULE PO (15:48)
[2024-11-03] MEDS: PANTOPRAZOLE SODIUM IV 40 MG VIAL IV PUSH (15:49)
[2024-11-03] MEDS: ONDANSETRON INJ 4 MG/2 ML VIAL IV PUSH (17:03)
[2024-11-03] MEDS: diphenhydrAMINE HCl CAP 25 MG CAPSULE PO (21:07)
[2024-11-03] MEDS: ACETAMINOPHEN 325 MG TABLET PO (21:07)
[2024-11-03] MEDS: guaiFENesin 600 MG/DEXTROMETHORPHAN 30 MG SR TAB 12 HR 1 TAB PO (21:31)
[2024-11-04] VITALS (12 sets, daily range): BP systolic 135–143; BP diastolic 58–70; PULSE 82–103; RESP 18–20; TEMP 36.5–36.9; O2SAT 90–94
[2024-11-04 04:44] LABS: Basophils Percent Auto 0.4 % (0.2-1.2); Eosinophils Absolute Auto 0.4 K/mm3 (0-0.3); Eosinophils Percent Auto 3.1 % (0-4.4); Hematocrit 26.3 % (37.0-47.0); Hemoglobin 8.4 g/dL (12.0-15.0); Immature Granulocyte Absolute 0.09 K/mm3 (0.00-0.031); Immature Granulocyte Percent A 0.8 % (0-0.5); Lymphocytes Absolute Auto 1.83 K/mm3 (0.9-3.2); Lymphocytes Percent Auto 16.2 % (18.3-44.2); Mean Corpuscular HGB Conc 31.9 g/dl (32-36); Mean Corpuscular Hemoglobin 27.9 pg (26-34); Mean Corpuscular Volume 87.4 fl (80-100); Mean Platelet Volume 9.1 fl (7.4-10.4); Monocytes Absolute Auto 0.9 K/mm3 (0.1-0.6); Monocytes Percent Auto 7.5 % (2.6-8.5); Neutrophils Absolute Auto 8.1 K/mm3 (1.3-6.7); Platelet Count Result 277 k/mm3 (150-375); Red Blood Count 3.01 M/mm3 (4.2-5.4); Red Cell Distribution Width 13.5 % (11.5-14.5); White Blood Count 11.3 K/mm3 (4.5-10.0)
[2024-11-04] MEDS: PIPERACILLN/TAZ 3.375GM/NS50ML 3.375 GM/50 ML BAG IVPB ×4 (04:55→23:24)
[2024-11-04 04:58] LABS: Alanine Aminotransferase 23 U/L (6-35); Albumin Level 2.9 g/dL (3.5-5.1); Alkaline Phosphatase 102 U/L (38-126); Anion Gap 6 mmol/L (4-12); Aspartate Amino Transferase 30 U/L (14-36); Bilirubin,Total 1.3 mg/dL (0.2-1.3); Blood Urea Nitrogen 19 mg/dL (7-17); Calcium 8.2 mg/dL (8.4-10.2); Carbon Dioxide 31 mmol/L (22-30); Chloride 96 mmol/L (98-107); Estimated CRCL calculation 76 ml/min; Estimated Glomerular Filt Rate > 60; Glucose 165 mg/dL (65-110); Magnesium 1.8 mg/dL (1.6-2.3); Potassium 3.6 mmol/L (3.4-5.0); Sodium 133 mmol/L (137-145)
[2024-11-04] MEDS: MAGNESIUM SULF 2 GM/WATER 50ML 2 GM/50 ML BAG IVPB (08:09)
[2024-11-04] MEDS: PRAVASTATIN SODIUM 20 MG TABLET 40 MG PO (08:10)
[2024-11-04] MEDS: PANTOPRAZOLE SODIUM IV 40 MG VIAL IV PUSH (08:10)
[2024-11-04] MEDS: POTASSIUM CHLORIDE 20 MEQ PACKET (FOR LIQUID) 40 MEQ PO (08:10)
[2024-11-04] MEDS: EZETIMIBE 10 MG TABLET PO (08:10)
[2024-11-04 08:13] LABS: Lactic Acid Reflex 1.4 mmol/L (0.7-2.0)
[2024-11-04 09:06] LABS: INR 1.1; Prothrombin Time 14.5 Seconds (11.1-14.7)
[2024-11-04 09:07] LABS: Partial Thromboplastin Time 29.4 Seconds (22.3-36.8)
--- NOTE | 2024-11-04 09:45 | P.PNIM_ITS ---
Progress Note: A&P Assessment and Plan (1) Sepsis: Qualifiers: Sepsis acute organ dysfunction status: unspecified Sepsis type: sepsis due to unspecified organism Qualified Code(s): A41.9 - Sepsis, unspecified o rganism Code(s): A41.9 - Sepsis, unspecified organism Status: Acute Assessment and Plan: Patient presented with nausea, vomiting, abdominal pain and bruising, discolored ostomy -patient was found to be hypotensive in the ER, with elevated lactic acid, acute kidney injury, leukocytosis -adequately fluid-resuscitated with 30 mL/kg IV fluids -lactic acid has normalized, leukocytosis improved significantly -creatinine has normalized -urine output has been adequate 11/03: Blood cultures: Preliminary report with no growth x2 -remains on maintenance IV fluids at 125 mL/hr. Have asked the bedside RN to DC the IV fluids since chest x-ray showed mild pulmonary edema and patient tolerating oral diet -continue Zosyn for possible colitis on CT scan of the abdomen and pelvis (2) Colitis: Code(s): K52.9 - Noninfective gastroenteritis and colitis, unspecified Status: Acute Assessment and Plan: Continue Zosyn 11/03/2024: CT scan of the abdomen Impression: Status post interval surgery with right lower quadrant double barrel ileostomy present. There is a 7.2 x 7.1 cm hematoma in the subcutaneous soft tissues at the ileostomy site. Stable focal wall thickening and adjacent inflammatory change and/or carcinomatosis at the hepatic flexure the colon. Possible focal wall irregularity at this region. Correlate for focal colitis/diverticulitis or possibly neoplasm. Appearance is similar to prior exam at this region. Cholelithiasis. Focal atelectasis or possibly pneumonitis the left lung base. (3) Nausea and vomiting in adult: Code(s): R11.2 - Nausea with vomiting, unspecified Status: Resolved Assessment and Plan: Resolved, could be related to severe sepsis/acidosis, acute kidney injury (4) Abdominal wall hematoma: Code(s): S30.1XXA - Contusion of abdominal wall, initial encounter Status: Acute Assessment and Plan: Abdominal wall hematoma as seen on the CT scan above, -coags are within normal limits -continue to monitor (5) Acute kidney injury: Code(s): N17.9 - Acute kidney failure, unspecified Status: Acute Assessment and Plan: Patient presented with acute kidney injury likely related to decreased oral intake due to nausea and vomiting and unable to keep anything down.,, hypotension, severe sepsis -patient adequately fluid-resuscitated -urine output has been adequate, kidney functions have normalized -continue to monitor urine output, renal function electrolytes (6) Ileostomy in place: Code(s): Z93.2 - Ileostomy status Status: Acute Assessment and Plan: Some darkening of the stoma noted continues to have liquid brown stool from ileostomy, - Ostomy nurse digitally probed to the opening of the loop ileostomy with no tightness or palpable stricturing past the stoma. -surgery following (7) 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: Code(s): C18.9 - Malignant neoplasm of colon, unspecified; C77.2 - Secondary and unspecified malignant neoplasm of intra-abdominal lymph nodes Status: Acute Assessment and Plan: Patient has a follow with Dr. Buchanan as outpatient Plan Hypertension, will restart low-dose metoprolol, which is a home medication Stress ulcer prophylaxis: Protonix DVT prophylaxis: SCDs, no chemoprophylaxis due to abdominal wall hematoma Code status: Full code Patient is medically stable to transfer to medical floor, if okay with surgery Subjective Date/time seen: 11/04/24 09:45 Interval history: 68-year-old female with recent admission to [facility], was found to have knee obstructing transverse colon mass, underwent laparoscopic diverting loop ileostomy, laparoscopic incisional omental biopsy, placement of a right subclavian vein Port-A-Cath on 10/27/[address] Otero. She was discharged on 10/30/2024. To return on 11/03/2024 with complaints of nausea, vomiting, unable to hold anything down, was found to be in sepsis with elevated lactic acid, hypotension with systolic blood pressures in the 80s, WBC count of 19.8. Acute kidney injury with a creatinine 1.4. CT abdomen and pelvis showed a 7.2 x 7.1 cm hematoma in the subcutaneous tissue at the the ileostomy site. Surgery was consulted 11/04/2024: Patient being seen for hospitalist group. Denies any shortness of breath, chest pain, abdominal pain, nausea, vomiting. Adequately fluid-resuscitated, lactic acid down to 1.4 (5.1 on admission) leukocytosis has improved to 11.3 (19 on admission). Patient is afebrile, hemodynamically stable. Remains on says maintenance IV fluids, the bedside RN to DC the fluids. Patient tolerating p.o. diet. On room air with adequate O2 sat, urine output has been adequate Review of Systems Review of Systems: All systems reviewed & are unremarkable except as noted in HPI and below Exam Narrative: APPEARANCE: Well appearing, no pain, no distress, well-nourished. HEAD: normocephalic, atraumatic. EYES: PERRLA/EOMI, conjunctivae clear. NOSE: Normal no drainage NECK: Supple. No adenopathy, no masses. RESPIRATORY: Airway patent, respirations nonlabored. Clear to auscultation bilaterally, no rales, rhonchi, wheezing. CARDIOVASCULAR: Regular rate and rhythm without murmurs rubs or gallops. ABDOMINAL: Normoactive bowel sounds, soft distended, patient does have an ileostomy bag in place, some darkening of the stoma noted continues to have liquid brown stool from ileostomy, bruising and ecchymosis noted periumbilical region. Firm and palpable hematoma. Ostomy nurse digitally probed to the opening of the loop ileostomy with no tightness or palpable stricturing past the stoma. MUSCULOSKELETAL: Moves all extremities. Strength/ROM intact, No edema, No calf tenderness. NEURO: Alert and oriented x3. Moves all extremities, nonfocal SKIN: postop bruising across abdomen GI: Auscultation: normal bowel sounds Other: Abdomen nondistended and soft with trocar site incisions with no erythema or drainage. There is bruising noted in the mid lower abdomen. Her ileostomy is in the right lower quadrant with firmness palpable in the subcu tissues around the ileostomy consistent with the hematoma seen on CT scan. The overlying skin over the hematoma and around the ileostomy appears healthy with no skin [place], no bruising, no redness, and only minimal tenderness in this area. The ileostomy appliance was removed and she has the loop ileostomy bar in place. This stoma is slightly dark with some sloughing, but appears viable. There is active spilling of liquid brown stool from ileostomy, which appears to be functioning well. Ostomy nurse digitally probed to the opening of the loop ileostomy with no tightness or palpable stricturing past the stoma. Objective Data Vital Signs Vital Signs: Vital Signs - 24 hr 11/03/24 09:46 11/03/24 10:13 11/03/24 10:15 Temperature Pulse Rate 95 99 102 H Respiratory Rate 23 H 22 H 21 H Blood Pressure 112/64 Pulse Oximetry 96 100 93 Oxygen Delivery 11/03/24 10:36 11/03/24 10:54 11/03/24 11:02 Temperature Pulse Rate 100 103 H 98 Respiratory Rate 20 17 26 H Blood Pressure Pulse Oximetry 94 91 90 Oxygen Delivery 11/03/24 11:35 11/03/24 11:53 11/03/24 12:15 Temperature Pulse Rate 98 95 91 Respiratory Rate 21 H 18 17 Blood Pressure Pulse Oximetry Oxygen Delivery 11/03/24 12:16 11/03/24 14:00 11/03/24 14:00 Temperature Pulse Rate 101 H 97 Respiratory Rate 18 Blood Pressure 117/78 Pulse Oximetry Oxygen Delivery Room Air 11/03/24 14:20 11/03/24 16:00 11/03/24 16:00 Temperature 99.0 F 98.2 F Pulse Rate 93 98 Respiratory Rate 17 28 H Blood Pressure 127/67 123/61 Pulse Oximetry 92 93 Oxygen Delivery Room Air 11/03/24 16:00 11/03/24 18:00 11/03/24 20:00 Temperature Pulse Rate 100 106 H 106 H Respiratory Rate Blood Pressure Pulse Oximetry Oxygen Delivery Room Air 11/03/24 20:00 11/03/24 20:00 11/03/24 22:00 Temperature 98.2 F Pulse Rate 103 H 106 H 103 H Respiratory Rate 20 Blood Pressure 118/55 L Pulse Oximetry 94 Oxygen Delivery 11/04/24 00:00 11/04/24 00:00 11/04/24 00:00 Temperature 98.5 F Pulse Rate 93 93 92 Respiratory Rate 19 Blood Pressure 135/58 L Pulse Oximetry 92 Oxygen Delivery Room Air 11/04/24 02:00 11/04/24 03:36 11/04/24 04:00 Temperature Pulse Rate 99 98 99 Respiratory Rate Blood Pressure Pulse Oximetry Oxygen Delivery Room Air 11/04/24 04:00 11/04/24 06:00 11/04/24 08:00 Temperature 98.3 F 98.0 F Pulse Rate 100 96 97 Respiratory Rate 20 19 Blood Pressure 140/63 143/64 H Pulse Oximetry 94 Oxygen Delivery 11/04/24 08:00 11/04/24 08:00 Temperature Pulse Rate 97 97 Respiratory Rate 19 Blood Pressure Pulse Oximetry 94 Oxygen Delivery Room Air Intake/Output Intake/Output: Intake & Output 11/01/24 11/02/24 11/03/24 11/04/24 23:59 23:59 23:59 23:59 Intake Total 4795.0 550 Output Total 650 700 Balance 4145.0 -150 Meds/Results Medications: Active Medications Generic Name Dose Route Start Last Admin Trade Name Freq PRN Reason Stop Dose Admin Benzonatate 100 mg 11/03/24 15:49 Benzonatate 100 Mg Capsule PO Q8H PRN Cough Ezetimibe 10 mg 11/04/24 09:00 11/04/24 08:10 Ezetimibe 10 Mg Tablet PO 10 mg DAILY FLORINDA Administration Piperacillin/Tazobactam/Dextrose 3.375 gm in 50 mls @ 100 mls/hr 11/03/24 17:00 11/04/24 04:55 Zosyn 3.375 Gm/Ns 50 Ml IVPB 100 mls/hr Q6HR FLORINDA Administration Ondansetron HCl 4 mg 11/03/24 09:07 11/03/24 17:03 Ondansetron Inj 4 Mg/2 Ml Vial IV PUSH 4 mg Q4H PRN Administration Nausea Oxycodone HCl 2.5 mg 11/03/24 13:59 Oxycodone Hcl (*Crx) 2.5 Mg Tab Ir PO Q6H PRN Pain Rated 7-10 Oxycodone/Acetaminophen 1 tablet 11/03/24 13:58 Oxycodone/Acetaminophen (*Crx) 5-325 Mg Tablet PO Q6H PRN Pain Rated 7-10 Pantoprazole Sodium 40 mg 11/03/24 15:10 11/04/24 08:10 Pantoprazole Sodium Iv 40 Mg Vial IV PUSH 40 mg QAM FLORINDA Administration Pravastatin Sodium 40 mg 11/04/24 09:00 11/04/24 08:10 Pravastatin Sodium 20 Mg Tablet PO 40 mg DAILY FLORINDA Administration Radiology Results: ITS Impressions Abdomen/Pelvis CT 11/03/24 08:16 Impression: Status post interval surgery with right lower quadrant double barrel ileostomy present. There is a 7.2 x 7.1 cm hematoma in the subcutaneous soft tissues at the ileostomy site. Stable focal wall thickening and adjacent inflammatory change and/or carcinomatosis at the hepatic flexure the colon. Possible focal wall irregularity at this region. Correlate for focal colitis/diverticulitis or possibly neoplasm. Appearance is similar to prior exam at this region. Cholelithiasis. Focal atelectasis or possibly pneumonitis the left lung base. Chest X-Ray 11/04/24 06:37 Impression: Central congestive change and mild interstitial edema pattern. Stable Mediport. Stable elevation right hemidiaphragm. Labs Labs: Laboratory Results - last 24 hr 11/03/24 11/04/24 11/04/24 10:25 04:39 07:44 WBC 11.3 H RBC 3.01 L Hgb 8.4 L Hct 26.3 L MCV 87.4 MCH 27.9 MCHC 31.9 L RDW 13.5 Plt Count 277 MPV 9.1 Immature Gran % (Auto) 0.8 H Neut % (Auto) 72.0 Lymph % (Auto) 16.2 L [place] % (Auto) 7.5 Eos % (Auto) 3.1 Baso % (Auto) 0.4 Lymph # (Auto) 1.83 [place] # (Auto) 0.9 H Eos # (Auto) 0.4 H Baso # (Auto) 0.0 Abs Immat Gran (auto) 0.09 H Absolute Neuts (auto) 8.1 H Absolute Nucleated RBC 0.000 Nucleated RBC % 0.0 PT 14.5 INR 1.1 APTT 29.4 Sodium 133 L Potassium 3.6 Chloride 96 L Carbon Dioxide 31 H Anion Gap 6 BUN 19 H D Creatinine 0.58 L Estim Creat Clear Calc 76 Estimated GFR > 60 Glucose 165 H Lactic Acid 1.9 1.4 Calcium 8.2 L Magnesium 1.8 Total Bilirubin 1.3 AST 30 ALT 23 Alkaline Phosphatase 102 Total Protein 6.0 L Albumin 2.9 L
[2024-11-04] MEDS: METOPROLOL TARTRATE 12.5 MG TABLET PO ×2 (12:19→20:34)
--- NOTE | 2024-11-04 16:03 | PM.PNGS ---
Progress Note: A&P Assessment and Plan (1) Sepsis: Qualifiers: Sepsis acute organ dysfunction status: unspecified Sepsis type: sepsis due to unspecified organism Qualified Code(s): A41.9 - Sepsis, unspecified organism Code(s): A41.9 - Sepsis, unspecified organism Status: Acute Assessment and Plan: Source still unclear. No obvious infectious source or surgical causes for her leukocytosis. She appeared significantly dehydrated and is clinically improving with medical management. WBC count down to 11,000. Lactic acid normalized with IV fluid hydration. Her blood pressure has remained stable and she was downgraded to a medical floor status. Continue IV antibiotics for now and continue to monitor. (2) Ileostomy in place: Code(s): Z93.2 - Ileostomy status Status: Acute Assessment and Plan: S/p laparoscopic diverting loop ileostomy on 10/27/24 for metastatic colon cancer. Ileostomy functioning well and stoma is viable. Hematoma in the subcutaneous tissues at the ileostomy site, which appears stable with no signs of an infection at this time. The edema from the hematoma is causing some pressure on the ileostomy bar with a small superficial ulcer of the skin on the medial side of the stoma. Will continue to monitor for now and eventually plan to remove the bar. Discussed with the patient that she will also need to monitor her fluid intake to adequately replace her fluids depending on her ileostomy output even once she is discharged to avoid dehydration. She currently is having difficulty tolerating her diet due to the dysphagia as mentioned below and GI was consulted. 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 She has not had any additional vomiting, but is reporting dysphagia and some regurgitation. This is new for her over the past few days and her symptoms are even with her liquid diet currently. Will consult GI for evaluation. (5) JAI (acute kidney injury): Code(s): N17.9 - Acute kidney failure, unspecified Status: Acute Assessment and Plan: Resolved with IV fluid hydration. Likely related to dehydration from vomiting and poor oral intake with high ileostomy output. Plan I have discussed the patient's case and plan of care with Dr. Otero. Subjective Subjective Date/Time Seen: 11/04/24 16:03 Patient reports: tolerating liquids well and nausea Interval history: Patient denies abdominal pain. She has been advanced to a full liquid diet. She reports having some dysphagia and feeling like she is having troubles with things going all the way down. She states solids have been worse over the past few days, but currently she is just on a liquid diet and had issues even with swallowing her coffee this morning. She feels like there is regurgitation at times. She denies having these issues prior to the this past weekend. She never complained of this during her last hospitalization. Exam Const: General: comfortable and no acute distress Orientation/consciousness: patient oriented x3 GI: Inspection: non-distended and obesity GI Palp: Yes Soft to palpation, No Tenderness to palpation present (GI), No Guarding due to palpation present (GI) and No Rebound tenderness present Auscultation: normal bowel sounds Other: Loop ileostomy functioning well with brown liquid stool in bag. There is swelling around the ileostomy with firmness, consistent with the hematoma noted on imaging, the overlying skin is slightly more pink today but no significant erythema. The medial side of the ileostomy bar is starting to cause a small superficial ulceration of the skin at the skin edge of the stoma. Stoma appears dark but viable. Objective Data Vital Signs Vital Signs: Vital Signs - 24 hr 11/03/24 18:00 11/03/24 20:00 11/03/24 20:00 Temperature 98.2 F Pulse Rate 106 H 106 H 103 H Respiratory Rate 20 Blood Pressure 118/55 L Pulse Oximetry 94 Oxygen Delivery Room Air 11/03/24 20:00 11/03/24 22:00 11/04/24 00:00 Temperature 98.5 F Pulse Rate 106 H 103 H 93 Respiratory Rate 19 Blood Pressure 135/58 L Pulse Oximetry 92 Oxygen Delivery 11/04/24 00:00 11/04/24 00:00 11/04/24 02:00 Temperature Pulse Rate 93 92 99 Respiratory Rate Blood Pressure Pulse Oximetry Oxygen Delivery Room Air 11/04/24 03:36 11/04/24 04:00 11/04/24 04:00 Temperature 98.3 F Pulse Rate 98 99 100 Respiratory Rate 20 Blood Pressure 140/63 Pulse Oximetry 94 Oxygen Delivery Room Air 11/04/24 06:00 11/04/24 08:00 11/04/24 08:00 Temperature 98.0 F Pulse Rate 96 97 97 Respiratory Rate 19 19 Blood Pressure 143/64 H Pulse Oximetry 94 Oxygen Delivery Room Air 11/04/24 08:00 11/04/24 10:00 11/04/24 12:19 Temperature Pulse Rate 97 94 94 Respiratory Rate Blood Pressure Pulse Oximetry Oxygen Delivery Intake/Output Intake/Output: Intake & Output 11/01/24 11/02/24 11/03/24 11/04/24 23:59 23:59 23:59 23:59 Intake Total 4795.0 1370 Output Total 650 700 Balance 4145.0 670 Meds/Results Medications: Active Medications Generic Name Dose Route Start Last Admin Trade Name Freq PRN Reason Stop Dose Admin Aspirin 81 mg 11/05/24 08:00 Aspirin 81 Mg Chewable Tablet PO DAILY@0800 FLORINDA Benzonatate 100 mg 11/03/24 15:49 Benzonatate 100 Mg Capsule PO Q8H PRN Cough Ezetimibe 10 mg 11/04/24 09:00 11/04/24 08:10 Ezetimibe 10 Mg Tablet PO 10 mg DAILY FLORINDA Administration Piperacillin/Tazobactam/Dextrose 3.375 gm in 50 mls @ 100 mls/hr 11/03/24 17:00 11/04/24 12:50 Zosyn 3.375 Gm/Ns 50 Ml IVPB Infused Q6HR FLORINDA Infusion Metoprolol Tartrate 12.5 mg 11/04/24 09:55 11/04/24 12:19 Metoprolol Tartrate 12.5 Mg Tablet PO 12.5 mg Q12HR FLORINDA Administration Ondansetron HCl 4 mg 11/03/24 09:07 11/03/24 17:03 Ondansetron Inj 4 Mg/2 Ml Vial IV PUSH 4 mg Q4H PRN Administration Nausea Oxycodone HCl 2.5 mg 11/03/24 13:59 Oxycodone Hcl (*Crx) 2.5 Mg Tab Ir PO Q6H PRN Pain Rated 7-10 Oxycodone/Acetaminophen 1 tablet 11/03/24 13:58 Oxycodone/Acetaminophen (*Crx) 5-325 Mg Tablet PO Q6H PRN Pain Rated 7-10 Pantoprazole Sodium 40 mg 11/03/24 15:10 11/04/24 08:10 Pantoprazole Sodium Iv 40 Mg Vial IV PUSH 40 mg QAM FLORINDA Administration Pravastatin Sodium 40 mg 11/04/24 09:00 11/04/24 08:10 Pravastatin Sodium 20 Mg Tablet PO 40 mg DAILY FLORINDA Administration Radiology Results: ITS Impressions Abdomen/Pelvis CT 11/03/24 08:16 Impression: Status post interval surgery with right lower quadrant double barrel ileostomy present. There is a 7.2 x 7.1 cm hematoma in the subcutaneous soft tissues at the ileostomy site. Stable focal wall thickening and adjacent inflammatory change and/or carcinomatosis at the hepatic flexure the colon. Possible focal wall irregularity at this region. Correlate for focal colitis/diverticulitis or possibly neoplasm. Appearance is similar to prior exam at this region. Cholelithiasis. Focal atelectasis or possibly pneumonitis the left lung base. Chest X-Ray 11/04/24 06:37 Impression: Central congestive change and mild interstitial edema pattern. Stable Mediport. Stable elevation right hemidiaphragm. Labs Labs: Laboratory Results - last 24 hr 11/04/24 11/04/24 04:39 07:44 WBC 11.3 H RBC 3.01 L Hgb 8.4 L Hct 26.3 L MCV 87.4 MCH 27.9 MCHC 31.9 L RDW 13.5 Plt Count 277 MPV 9.1 Immature Gran % (Auto) 0.8 H Neut % (Auto) 72.0 Lymph % (Auto) 16.2 L [place] % (Auto) 7.5 Eos % (Auto) 3.1 Baso % (Auto) 0.4 Lymph # (Auto) 1.83 [place] # (Auto) 0.9 H Eos # (Auto) 0.4 H Baso # (Auto) 0.0 Abs Immat Gran (auto) 0.09 H Absolute Neuts (auto) 8.1 H Absolute Nucleated RBC 0.000 Nucleated RBC % 0.0 PT 14.5 INR 1.1 APTT 29.4 Sodium 133 L Potassium 3.6 Chloride 96 L Carbon Dioxide 31 H Anion Gap 6 BUN 19 H D Creatinine 0.58 L Estim Creat Clear Calc 76 Estimated GFR > 60 Glucose 165 H Lactic Acid 1.4 Calcium 8.2 L Magnesium 1.8 Total Bilirubin 1.3 AST 30 ALT 23 Alkaline Phosphatase 102 Total Protein 6.0 L Albumin 2.9 L
[2024-11-04] MEDS: MELATONIN 5 MG TABLET PO (21:15)
[2024-11-04] MEDS: ACETAMINOPHEN 500 MG TABLET PO (21:15)
[2024-11-05] VITALS (10 sets, daily range): BP systolic 132–162; BP diastolic 61–99; PULSE 92–109; RESP 18–109; TEMP 35.7–36.6; O2SAT 90–98
[2024-11-05 05:14] LABS: Basophils Percent Auto 0.3 % (0.2-1.2); Eosinophils Absolute Auto 0.3 K/mm3 (0-0.3); Eosinophils Percent Auto 2.2 % (0-4.4); Hematocrit 28.1 % (37.0-47.0); Immature Granulocyte Absolute 0.08 K/mm3 (0.00-0.031); Immature Granulocyte Percent A 0.6 % (0-0.5); Lymphocytes Absolute Auto 1.51 K/mm3 (0.9-3.2); Lymphocytes Percent Auto 12.1 % (18.3-44.2); Mean Corpuscular Hemoglobin 28.2 pg (26-34); Mean Corpuscular Volume 88.1 fl (80-100); Mean Platelet Volume 9.8 fl (7.4-10.4); Monocytes Absolute Auto 0.9 K/mm3 (0.1-0.6); Monocytes Percent Auto 7.6 % (2.6-8.5); Neutrophils Absolute Auto 9.6 K/mm3 (1.3-6.7); Neutrophils Percent Auto 77.2 % (45.5-73.1); Platelet Count Result 298 k/mm3 (150-375); Red Blood Count 3.19 M/mm3 (4.2-5.4); Red Cell Distribution Width 13.5 % (11.5-14.5); White Blood Count 12.4 K/mm3 (4.5-10.0)
[2024-11-05 05:27] LABS: Alanine Aminotransferase 23 U/L (6-35); Albumin Level 3.2 g/dL (3.5-5.1); Alkaline Phosphatase 116 U/L (38-126); Anion Gap 9 mmol/L (4-12); Aspartate Amino Transferase 26 U/L (14-36); Bilirubin,Total 1.2 mg/dL (0.2-1.3); Blood Urea Nitrogen 19 mg/dL (7-17); Calcium 8.5 mg/dL (8.4-10.2); Carbon Dioxide 32 mmol/L (22-30); Chloride 95 mmol/L (98-107); Estimated CRCL calculation 81 ml/min; Estimated Glomerular Filt Rate > 60; Glucose 177 mg/dL (65-110); Magnesium 2.1 mg/dL (1.6-2.3); Phosphorus 3.1 mg/dL (2.5-4.5); Potassium 3.4 mmol/L (3.4-5.0); Sodium 136 mmol/L (137-145)
[2024-11-05] MEDS: PIPERACILLN/TAZ 3.375GM/NS50ML 3.375 GM/50 ML BAG IVPB ×4 (06:06→23:44)
[2024-11-05] MEDS: PANTOPRAZOLE SODIUM IV 40 MG VIAL IV PUSH (11:06)
--- NOTE | 2024-11-05 12:47 | PM.IMPN ---
Progress Note: A&P Assessment and Plan (1) Sepsis: Qualifiers: Sepsis acute organ dysfunction status: unspecified Sepsis type: sepsis due to unspecified organism Qualified Code(s): A41.9 - Sepsis, unspecified organism Code(s): A41.9 - Sepsis, unspecified organism Status: Acute Assessment and Plan: RESOLVED Patient presented with nausea, vomiting, abdominal pain and bruising, discolored ostomy -patient was found to be hypotensive in the ER, with elevated lactic acid, acute kidney injury, leukocytosis -adequately fluid-resuscitated with 30 mL/kg IV fluids -lactic acid has normalized, leukocytosis improved significantly -creatinine has normalized -urine output has been adequate 11/03: Blood cultures: Preliminary report with no growth x2 -remains on maintenance IV fluids at 125 mL/hr. Have asked the bedside RN to DC the IV fluids since chest x-ray showed mild pulmonary edema and patient tolerating oral diet -continue Zosyn for possible colitis on CT scan of the abdomen and pelvis (2) Colitis: Code(s): K52.9 - Noninfective gastroenteritis and colitis, unspecified Status: Acute Assessment and Plan: Continue Zosyn per surgery 11/03/2024: CT scan of the abdomen Impression: Status post interval surgery with right lower quadrant double barrel ileostomy present. There is a 7.2 x 7.1 cm hematoma in the subcutaneous soft tissues at the ileostomy site. Stable focal wall thickening and adjacent inflammatory change and/or carcinomatosis at the hepatic flexure the colon. Possible focal wall irregularity at this region. Correlate for focal colitis/diverticulitis or possibly neoplasm. Appearance is similar to prior exam at this region. Cholelithiasis. Focal atelectasis or possibly pneumonitis the left lung base. (3) Nausea and vomiting in adult: Code(s): R11.2 - Nausea with vomiting, unspecified Status: Resolved Assessment and Plan: Resolved, could be related to severe sepsis/acidosis, acute kidney injury -patient states when she takes solids or liquids, she feels something is getting stuck in her throat, also has nausea and vomiting -GI has been consulted, patient to get EGD done today 11/05 (4) Abdominal wall hematoma: Code(s): S30.1XXA - Contusion of abdominal wall, initial encounter Status: Acute Assessment and Plan: Abdominal wall hematoma as seen on the CT scan above, -coags are within normal limits -continue to monitor (5) Acute kidney injury: Code(s): N17.9 - Acute kidney failure, unspecified Status: Acute Assessment and Plan: Patient presented with acute kidney injury likely related to decreased oral intake due to nausea and vomiting and unable to keep anything down.,, hypotension, severe sepsis -patient adequately fluid-resuscitated -urine output has been adequate, kidney functions have normalized -continue to monitor urine output, renal function electrolytes (6) Ileostomy in place: Code(s): Z93.2 - Ileostomy status Status: Acute Assessment and Plan: Some darkening of the stoma noted continues to have liquid brown stool from ileostomy, - Ostomy nurse digitally probed to the opening of the loop ileostomy with no tightness or palpable stricturing past the stoma. 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 Buchanan Plan Stress ulcer prophylaxis: Protonix DVT prophylaxis: SCDs, no chemoprophylaxis due to abdominal wall hematoma Code status: Full code Subjective Date/time seen: 11/05/24 12:47 Interval history: 68-year-old female with recent admission to [facility], was found to have knee obstructing transverse colon mass, underwent laparoscopic diverting loop ileostomy, laparoscopic incisional omental biopsy, placement of a right subclavian vein Port-A-Cath on 10/27/[address] Otero. She was discharged on 10/30/2024. To return on 11/03/2024 with complaints of nausea, vomiting, unable to hold anything down, was found to be in sepsis with elevated lactic acid, hypotension with systolic blood pressures in the 80s, WBC count of 19.8. Acute kidney injury with a creatinine 1.4. CT abdomen and pelvis showed a 7.2 x 7.1 cm hematoma in the subcutaneous tissue at the the ileostomy site. Surgery was consulted 11/05/2024: Patient being seen for hospitalist group. Denies any shortness of breath, chest pain, abdominal pain, nausea, vomiting. Patient complains of nausea, vomiting with liquid and solid intake. States she feels that something getting stuck in her throat. Patient is afebrile, hemodynamically stable. Urine output has been adequate. On room air with adequate O2 sat, urine output has been adequate Review of Systems Review of Systems: All systems reviewed & are unremarkable except as noted in HPI and below Exam Narrative: APPEARANCE: Well appearing, no pain, no distress, well-nourished. HEAD: normocephalic, atraumatic. EYES: PERRLA/EOMI, conjunctivae clear. NOSE: Normal no drainage NECK: Supple. No adenopathy, no masses. RESPIRATORY: Airway patent, respirations nonlabored. Clear to auscultation bilaterally, no rales, rhonchi, wheezing. CARDIOVASCULAR: Regular rate and rhythm without murmurs rubs or gallops. ABDOMINAL: Normoactive bowel sounds, soft distended, patient does have an ileostomy bag in place, stoma looks more pink this morning continues to have liquid brown stool from ileostomy, bruising and ecchymosis noted periumbilical region. Firm and palpable hematoma. Ostomy nurse digitally probed to the opening of the loop ileostomy with no tightness or palpable stricturing past the stoma. MUSCULOSKELETAL: Moves all extremities. Strength/ROM intact, No edema, No calf tenderness. NEURO: Alert and oriented x3. Moves all extremities, nonfocal SKIN: postop bruising across abdomen GI: Auscultation: normal bowel sounds Other: Abdomen nondistended and soft with trocar site incisions with no erythema or drainage. There is bruising noted in the mid lower abdomen. Her ileostomy is in the right lower quadrant with firmness palpable in the subcu tissues around the ileostomy consistent with the hematoma seen on CT scan. The overlying skin over the hematoma and around the ileostomy appears healthy with no skin breakdown, no bruising, no redness, and only minimal tenderness in this area. The ileostomy appliance was removed and she has the loop ileostomy bar in place. This stoma is slightly dark with some sloughing, but appears viable. There is active spilling of liquid brown stool from ileostomy, which appears to be functioning well. Ostomy nurse digitally probed to the opening of the loop ileostomy with no tightness or palpable stricturing past the stoma. Objective Data Vital Signs Vital Signs: Vital Signs - 24 hr 02/11/25 16:00 11/04/24 20:27 11/04/24 20:34 Temperature 97.7 F Pulse Rate 101 H 82 Respiratory Rate 20 20 Blood Pressure 136/65 Pulse Oximetry 93 Oxygen Delivery Room Air 11/04/24 23:25 11/05/24 08:00 11/05/24 09:09 Temperature 98.1 F 97.9 F Pulse Rate 103 H 107 H Respiratory Rate 18 22 H Blood Pressure 139/70 154/74 H Pulse Oximetry 90 98 94 Oxygen Delivery Room Air Intake/Output Intake/Output: Intake & Output 11/02/24 11/03/24 11/04/24 11/05/24 23:59 23:59 23:59 23:59 Intake Total 4795.0 2220 50 Output Total 650 950 75 Balance 4145.0 1270 -25 Meds/Results Medications: Active Medications Generic Name Dose Route Start Last Admin Trade Name Freq PRN Reason Stop Dose Admin Acetaminophen 500 mg 11/04/24 21:10 11/04/24 21:15 Acetaminophen 500 Mg Tablet PO 500 mg Q6H PRN Administration Mild Pain (1-3) or Fever Aspirin 81 mg 11/05/24 08:00 Aspirin 81 Mg Chewable Tablet PO DAILY@0800 FLORINDA Benzonatate 100 mg 11/03/24 15:49 Benzonatate 100 Mg Capsule PO Q8H PRN Cough Ezetimibe 10 mg 11/04/24 09:00 11/04/24 08:10 Ezetimibe 10 Mg Tablet PO 10 mg DAILY FLORINDA Administration Piperacillin/Tazobactam/Dextrose 3.375 gm in 50 mls @ 100 mls/hr 11/03/24 17:00 11/05/24 11:11 Zosyn 3.375 Gm/Ns 50 Ml IVPB 100 mls/hr Q6HR FLORINDA Administration Melatonin 5 mg 11/04/24 21:10 11/04/24 21:15 Melatonin 5 Mg Tablet PO 5 mg HS PRN Administration insomnia Metoprolol Tartrate 12.5 mg 11/04/24 09:55 11/04/24 20:34 Metoprolol Tartrate 12.5 Mg Tablet PO 12.5 mg Q12HR FLORINDA Administration Ondansetron HCl 4 mg 11/03/24 09:07 11/03/24 17:03 Ondansetron Inj 4 Mg/2 Ml Vial IV PUSH 4 mg Q4H PRN Administration Nausea Oxycodone HCl 2.5 mg 11/03/24 13:59 Oxycodone Hcl (*Crx) 2.5 Mg Tab Ir PO Q6H PRN Pain Rated 7-10 Oxycodone/Acetaminophen 1 tablet 11/03/24 13:58 Oxycodone/Acetaminophen (*Crx) 5-325 Mg Tablet PO Q6H PRN Pain Rated 7-10 Pantoprazole Sodium 40 mg 11/03/24 15:10 11/05/24 11:06 Pantoprazole Sodium Iv 40 Mg Vial IV PUSH 40 mg QAM FLORINDA Administration Pravastatin Sodium 40 mg 11/04/24 09:00 11/04/24 08:10 Pravastatin Sodium 20 Mg Tablet PO 40 mg DAILY FLROINDA Administration Radiology Results: ITS Impressions Abdomen/Pelvis CT 11/03/24 08:16 Impression: Status post interval surgery with right lower quadrant double barrel ileostomy present. There is a 7.2 x 7.1 cm hematoma in the subcutaneous soft tissues at the ileostomy site. Stable focal wall thickening and adjacent inflammatory change and/or carcinomatosis at the hepatic flexure the colon. Possible focal wall irregularity at this region. Correlate for focal colitis/diverticulitis or possibly neoplasm. Appearance is similar to prior exam at this region. Cholelithiasis. Focal atelectasis or possibly pneumonitis the left lung base. Chest X-Ray 11/04/24 06:37 Impression: Central congestive change and mild interstitial edema pattern. Stable Mediport. Stable elevation right hemidiaphragm. Labs Labs: Laboratory Results - last 24 hr 11/05/24 04:47 WBC 12.4 H RBC 3.19 L Hgb 9.0 L Hct 28.1 L MCV 88.1 MCH 28.2 MCHC 32.0 RDW 13.5 Plt Count 298 MPV 9.8 Immature Gran % (Auto) 0.6 H Neut % (Auto) 77.2 H Lymph % (Auto) 12.1 L [place] % (Auto) 7.6 Eos % (Auto) 2.2 Baso % (Auto) 0.3 Lymph # (Auto) 1.51 [place] # (Auto) 0.9 H Eos # (Auto) 0.3 Baso # (Auto) 0.0 Abs Immat Gran (auto) 0.08 H Absolute Neuts (auto) 9.6 H Absolute Nucleated RBC 0.000 Nucleated RBC % 0.0 Sodium 136 L Potassium 3.4 Chloride 95 L Carbon Dioxide 32 H Anion Gap 9 BUN 19 H Creatinine 0.54 L Estim Creat Clear Calc 81 Estimated GFR > 60 Glucose 177 H Calcium 8.5 Phosphorus 3.1 Magnesium 2.1 Total Bilirubin 1.2 AST 26 ALT 23 Alkaline Phosphatase 116 Total Protein 7.0 Albumin 3.2 L
[2024-11-05] MEDS: LACTATED RINGERS 1,000 ML 150 ML IV CONT (13:40)
--- NOTE | 2024-11-05 13:49 | P.CONGI_ITS ---
Assessment and Plan Assessment and plan (1) Nausea and vomiting in adult: Code(s): R11.2 - Nausea with vomiting, unspecified Status: Resolved Assessment and Plan: this has improved but some sensation of food getting stuck at throat will do egd to assess if stricture, ring, esophagitis, etc (2) Dysphagia: Code(s): R13.10 - Dysphagia, unspecified Status: Acute Assessment and Plan: more recommendations after egd (3) 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: Code(s): C18.9 - Malignant neoplasm of colon, unspecified; C77.2 - Secondary and unspecified malignant neoplasm of intra-abdominal lymph nodes Status: Acute Assessment and Plan: s/p surgery she has not started chemotherapy, will follow-up with Dr Buchanan soon to discuss treatment (4) Stricture intestinal: Code(s): K56.699 - Other intestinal obstruction unspecified as to partial versus complete obstruction Status: Acute Assessment and Plan: ileostomy in place (5) Abdominal pain: Code(s): R10.9 - Unspecified abdominal pain Status: Acute (6) JAI (acute kidney injury): Code(s): N17.9 - Acute kidney failure, unspecified Status: Acute Assessment and Plan: resolved (7) Leukocytosis: Code(s): D72.829 - Elevated white blood cell count, unspecified Status: Acute (8) Lactic acidosis: Code(s): E87.20 - Acidosis, unspecified Status: Acute Assessment and Plan: resolved GI Consult Note Consult date/time: 11/05/24 13:49 Reason for consult: n/v, dysphagia HPI: Hayden Estrella is a 68 year old female who is known to me from recent hospitalization when I performed a colonoscopy and found to have a near obstructing transverse colon mass with peritoneal carcinomatosis. She ultimately underwent laparoscopic diverting loop ileostomy, laparoscopic incisional omental biopsy, and placement of right subclavian vein port a catheter on 10/27/[address] Otero. Postoperatively, her diet was advanced and her ileostomy was functioning well then discharged 10/30/2024. She came here with nausea and vomiting, also sensation that food was getting stuck at throat. No recent EGD. Initial blood work showed white blood cell count 31247 down to 11k, lactic acid 5.1 but normalized after treatment, creatinine 1.41 down to normal, bilirubin 1.5, AST 37, ALT 27, lipase 530. UA negative for UTI. Influenza a/B, RSV, COVID all negative. CT scan of the abdomen and pelvis showed a 7.2 x 7.1 cm hematoma in the subcutaneous soft tissues at the ileostomy site. She has been feeling better but still sensation of food stuck in throat. Review of Systems 2 Constitutional: Constitutional: Denies chills Eyes: Eyes: Denies blurry vision ENT: Reports Normal hearing present Cardiovascular: Cardiovascular: Denies chest pain Respiratory: Respiratory: Denies chest congestion Gastrointestinal: Gastrointestinal: Reports abdominal pain, Reports nausea and Reports vomiting Genitourinary: Genitourinary: Denies dysuria Musculoskeletal: Musculoskeletal: Denies neck pain Integumentary/Breasts: Skin/Breast: Denies rash Neurologic: Denies Abnormal speech present Psychiatric: Psychiatric: Denies behavioral changes [facility] Past Medical History Medical History (Updated 11/05/24 @ 13:57 by Ramos Capellan MD) Lactic acidosis Dysphagia 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 Bowel obstruction Mass of colon Hyperlipidemia Hypertension History of cervical cancer History of breast cancer Surgical History Surgical History History of laparotomy She had some open repair for prolapse, possibly cystocele History of total abdominal hysterectomy History of lumpectomy of left breast Family History Family History Sibling Lung cancer COVID Diabetes mellitus Father Leukemia Mother Heart trouble Social History Social History Smoking status: Never smoker Second hand tobacco smoke exposure: No Alcohol intake: never Substance use: never Do You Feel Safe in your Home?: Yes Lack of Transportation: No Lack of Food: Never True Current Housing: I Have Housing Concerned About Future Housing: No Difficulty Paying Gas/Electric Bills: No Difficulty Paying for Meds: No Currently Unemployed: No Education: Decline to Answer Difficulty w/ Childcare or Family Care: No Spiritual care concerns: No Meds Home Medications and Allergies Home Medications ?Medication ?Instructions ?Recorded ?Confirmed ?Type amlodipine 5 mg tablet 5 mg PO DAILY 10/15/24 11/03/24 History aspirin 81 mg chewable tablet 81 mg PO DAILY 10/15/24 11/03/24 History ezetimibe 10 mg tablet 10 mg PO DAILY 10/15/24 11/03/24 History losartan 100 1 tablet PO DAILY 10/15/24 11/03/24 History mg-hydrochlorothiazide 12.5 mg tablet metoprolol succinate 50 mg 50 mg PO Q12H 10/15/24 11/03/24 History tablet,extended release 24 hr pravastatin 40 mg tablet 40 mg PO DAILY 10/15/24 11/03/24 History oxycodone-acetaminophen 7.5 mg-325 1 tablet PO Q6H PRN pain 5 days 10/30/24 11/03/24 Rx mg tablet #20 tabs Allergies Allergy/AdvReac Type Severity Reaction Status Date / Time No Known Allergies Allergy Verified 10/23/24 09:33 Vital Signs Vital Signs - 24 hr 11/04/24 16:00 11/04/24 20:27 11/04/24 20:34 Temperature 97.7 F Pulse Rate 101 H 82 Respiratory Rate 20 20 Blood Pressure 136/65 Pulse Oximetry 93 Oxygen Delivery Room Air 11/04/24 23:25 11/05/24 08:00 11/05/24 09:09 Temperature 98.1 F 97.9 F Pulse Rate 103 H 107 H Respiratory Rate 18 22 H Blood Pressure 139/70 154/74 H Pulse Oximetry 90 98 94 Oxygen Delivery Room Air 11/05/24 13:40 Temperature 96.3 F L Pulse Rate 109 H Respiratory Rate 109 H Blood Pressure 162/99 H Pulse Oximetry 95 Oxygen Delivery Room Air Exam 2 Const: General: comfortable and no acute distress O rientation/consciousness: patient oriented x3 HENMT: Face/Nose/Sinus: Normal nares present Eyes: Sclera: sclerae normal Neck: Neck: supple Resp: Effort & Inspection: normal respiratory effort Cardio: Rate: regular rate GI: Inspection: non-distended and obesity GI Palp: Yes Soft to palpation, No Tenderness to palpation present (GI), No Guarding due to palpation present (GI) and No Rebound tenderness present Auscultation: normal bowel sounds O ther: Loop ileostomy functioning well with brown liquid stool in bag. Skin: General skin exam: normal color Neuro: Speech: normal speech Motor exam (neuro): 5/5 motor strength present throughout Extrem: General: normal to inspection Psych: Affect: normal affect Results Labs 11/05/24 04:47 11/05/24 04:47 Labs: Short CBC 11/05/24 Range/Units 04:47 WBC 12.4 H (4.5-10.0) K/mm3 Hgb 9.0 L (12.0-15.0) g/dL Hct 28.1 L (37.0-47.0) % Plt Count 298 (150-375) k/mm3 BMP 11/05/24 04:47 Sodium 136 L Potassium 3.4 Chloride 95 L Carbon Dioxide 32 H BUN 19 H Creatinine 0.54 L Glucose 177 H Calcium 8.5 Liver Function 11/05/24 Range/Units 04:47 Total Bilirubin 1.2 (0.2-1.3) mg/dL AST 26 (14-36) U/L ALT 23 (6-35) U/L Alkaline Phosphatase 116 (38-126) U/L Albumin 3.2 L (3.5-5.1) g/dL
--- NOTE | 2024-11-05 13:49 | WPDANESEPPF ---
Anes - Initial Pre Proc Eval Procedure: Operation Date: 11/05/24 13:45 Proposed Procedures p Esophagogastroduodenoscopy - Ramos Capellan MD Date/Time: 11/05/24 13:49 Surgeon: Jacob Hartley MD Pre Op Diagnosis: stoma turning black Patient Data Age: 68 Gender: F Height: 1.52 m Weight: 84.5 kg Last Vital Signs Temp 96.3 F L 11/05/24 13:40 Pulse 109 H 11/05/24 13:40 Resp 109 H 11/05/24 13:40 BP 162/99 H 11/05/24 13:40 Pulse Ox 95 11/05/24 13:40 O2 Del Method Room Air 11/05/24 13:40 Allergies Allergy/AdvReac Type Severity Reaction Status Date / Time No Known Allergies Allergy Verified 10/23/24 09:33 Home Medications ?Medication ?Instructions ?Recorded ?Confirmed ?Type amlodipine 5 mg tablet 5 mg PO DAILY 10/15/24 11/03/24 History aspirin 81 mg chewable tablet 81 mg PO DAILY 10/15/24 11/03/24 History ezetimibe 10 mg tablet 10 mg PO DAILY 10/15/24 11/03/24 History losartan 100 1 tablet PO DAILY 10/15/24 11/03/24 History mg-hydrochlorothiazide 12.5 mg tablet metoprolol succinate 50 mg 50 mg PO Q12H 10/15/24 11/03/24 History tablet,extended release 24 hr pravastatin 40 mg tablet 40 mg PO DAILY 10/15/24 11/03/24 History oxycodone-acetaminophen 7.5 mg-325 1 tablet PO Q6H PRN pain 5 days 10/30/24 11/03/24 Rx mg tablet #20 tabs Laboratory Tests 11/05/24 04:47 WBC 12.4 H K/mm3 (4.5-10.0) RBC 3.19 L M/mm3 (4.2-5.4) Hgb 9.0 L g/dL (12.0-15.0) Hct 28.1 L % (37.0-47.0) MCV 88.1 fl (80-100) MCH 28.2 pg (26-34) MCHC 32.0 g/dl (32-36) RDW 13.5 % (11.5-14.5) Plt Count 298 k/mm3 (150-375) MPV 9.8 fl (7.4-10.4) Immature Gran % (Auto) 0.6 H % (0-0.5) Neut % (Auto) 77.2 H % (45.5-73.1) Lymph % (Auto) 12.1 L % (18.3-44.2) [place] % (Auto) 7.6 % (2.6-8.5) Eos % (Auto) 2.2 % (0-4.4) Baso % (Auto) 0.3 % (0.2-1.2) Lymph # (Auto) 1.51 K/mm3 (0.9-3.2) [place] # (Auto) 0.9 H K/mm3 (0.1-0.6) Eos # (Auto) 0.3 K/mm3 (0-0.3) Baso # (Auto) 0.0 K/mm3 (0.0-0.1) Abs Immat Gran (auto) 0.08 H K/mm3 (0.00-0.031) Absolute Neuts (auto) 9.6 H K/mm3 (1.3-6.7) Absolute Nucleated RBC 0.000 K/mm3 (0.0-0.012) Nucleated RBC % 0.0 % (0.0-0.2) Sodium 136 L mmol/L (137-145) Potassium 3.4 mmol/L (3.4-5.0) Chloride 95 L mmol/L (98-107) Carbon Dioxide 32 H mmol/L (22-30) Anion Gap 9 mmol/L (4-12) BUN 19 H mg/dL (7-17) Creatinine 0.54 L mg/dL (0.7-1.0) Estim Creat Clear Calc 81 ml/min Estimated GFR > 60 (59 - ) Glucose 177 H mg/dL (65-110) Calcium 8.5 mg/dL (8.4-10.2) Phosphorus 3.1 mg/dL (2.5-4.5) Magnesium 2.1 mg/dL (1.6-2.3) Total Bilirubin 1.2 mg/dL (0.2-1.3) AST 26 U/L (14-36) ALT 23 U/L (6-35) Alkaline Phosphatase 116 U/L (38-126) Total Protein 7.0 g/dL (6.3-8.2) Albumin 3.2 L g/dL (3.5-5.1) Patient hx anesthesia problems: none Family hx anesthesia problems: none Results Review: All pre-operative results and documents have been reviewed as part of the pre-operative evaluation. [facility] Past Medical History Medical History 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 Bowel obstruction Mass of colon Hyperlipidemia Hypertension History of cervical cancer History of breast cancer Surgical History Surgical History History of laparotomy She had some open repair for prolapse, possibly cystocele History of total abdominal hysterectomy History of lumpectomy of left breast Family History Family History Sibling Lung cancer COVID Diabetes mellitus Father Leukemia Mother Heart trouble Social History Social History Smoking status: Never smoker Second hand tobacco smoke exposure: No Alcohol intake: never Substance use: never Do You Feel Safe in your Home?: Yes Lack of Transportation: No Lack of Food: Never True Current Housing: I Have Housing Concerned About Future Housing: No Difficulty Paying Gas/Electric Bills: No Difficulty Paying for Meds: No Currently Unemployed: No Education: Decline to Answer Difficulty w/ Childcare or Family Care: No Spiritual care concerns: No Anes - Eval Final PreProcedure Day of Procedure 11/05/24 13:49 Patient weight: obese Lungs: normal air movement Airway: Mallampati scale class II Neurological: alert and oriented Last oral intake: >/= 8 hours ASA classification: III Emergent: no Anesthetic plan: proceed Anesthesia type and monitoring: general GIVS and standard monitoring Results Review: All pre-operative results and documents have been reviewed as part of the pre-operative evaluation. Metastatic colon ca, now w dysphagia. Informed Consent: The patient's anesthetic plan and its attendant risks and benefits were discussed with the patient/family/POA. Questions were solicited and answers provided to the satisfaction of the patient/family/POA.
--- NOTE | 2024-11-05 14:08 | PCOTNOTE ---
Attempted occupational therapy evaluation. Patient off floor for EGD.
--- NOTE | 2024-11-05 14:22 | PCPTNOTE ---
attempted PT eval, pt away from room in GI, will follow
--- NOTE | 2024-11-05 14:29 | PM.PNGS ---
Progress Note: A&P Assessment and Plan (1) Ileostomy in place: Code(s): Z93.2 - Ileostomy status Status: Acute Assessment and Plan: S/p laparoscopic diverting loop ileostomy on 10/27/24 for metastatic colon cancer. Ileostomy functioning well and stoma is viable. Hematoma in the subcutaneous tissues at the ileostomy site, which appears stable with no signs of an infection at this time. Okay from our standpoint to start advancing her diet depending on EGD findings. 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 Buchanan as an outpatient for chemotherapy. (3) Nausea and vomiting in adult: Code(s): R11.2 - Nausea with vomiting, unspecified Status: Resolved Assessment and Plan: Reports issues with food going down and regurgitation. GI planning EGD. (4) Sepsis: Qualifiers: Sepsis acute organ dysfunction status: unspecified Sepsis type: sepsis due to unspecified organism Qualified Code(s): A41.9 - Sepsis, unspecified organism Code(s): A41.9 - Sepsis, unspecified organism Status: Acute Assessment and Plan: Resolved. (5) JAI (acute kidney injury): Code(s): N17.9 - Acute kidney failure, unspecified Status: Acute Assessment and Plan: Resolved with IV fluid hydration. Plan I have discussed the patient's case and plan of care with Dr. Otero. Subjective Subjective Date/Time Seen: 11/05/24 14:29 Patient reports: no new complaints and afebrile Interval history: Patient seen today with no new complaints. She is still having issues with food going down and feeling like she has regurgitation. No other complaints. Exam Const: General: comfortable and no acute distress Orientation/consciousness: patient oriented x3 GI: Inspection: non-distended, incision (port site incisions healing well, ecchymosis at mid lower abdomen unchanged) and obesity GI Palp: Yes Soft to palpation, No Tenderness to palpation present (GI) and No Guarding due to palpation present (GI) Auscultation: normal bowel sounds Other: Loop ileostomy functioning well with brown liquid stool in bag. There is swelling around the ileostomy with firmness, consistent with the hematoma noted on imaging. Stoma appears dark but viable. Objective Data Vital Signs Vital Signs: Vital Signs - 24 hr 11/04/24 16:00 11/04/24 20:27 11/04/24 20:34 Temperature 97.7 F Pulse Rate 101 H 82 Respiratory Rate 20 20 Blood Pressure 136/65 Pulse Oximetry 93 Oxygen Delivery Room Air 11/04/24 23:25 11/05/24 08:00 11/05/24 09:09 Temperature 98.1 F 97.9 F Pulse Rate 103 H 107 H Respiratory Rate 18 22 H Blood Pressure 139/70 154/74 H Pulse Oximetry 90 98 94 Oxygen Delivery Room Air 11/05/24 13:40 Temperature 96.3 F L Pulse Rate 109 H Respiratory Rate 109 H Blood Pressure 162/99 H Pulse Oximetry 95 Oxygen Delivery Room Air Intake/Output Intake/Output: Intake & Output 11/02/24 11/03/24 11/04/24 11/05/24 23:59 23:59 23:59 23:59 Intake Total 4795.0 2220 162.5 Output Total 650 950 75 Balance 4145.0 1270 87.5 Meds/Results Medications: Active Medications Generic Name Dose Route Start Last Admin Trade Name Freq PRN Reason Stop Dose Admin Acetaminophen 500 mg 11/04/24 21:10 11/04/24 21:15 Acetaminophen 500 Mg Tablet PO 500 mg Q6H PRN Administration Mild Pain (1-3) or Fever Aspirin 81 mg 11/05/24 08:00 Aspirin 81 Mg Chewable Tablet PO DAILY@0800 FLORINDA Benzonatate 100 mg 11/03/24 15:49 Benzonatate 100 Mg Capsule PO Q8H PRN Cough Ezetimibe 10 mg 11/04/24 09:00 11/04/24 08:10 Ezetimibe 10 Mg Tablet PO 10 mg DAILY FLORINDA Administration Piperacillin/Tazobactam/Dextrose 3.375 gm in 50 mls @ 100 mls/hr 11/03/24 17:00 11/05/24 11:11 Zosyn 3.375 Gm/Ns 50 Ml IVPB 100 mls/hr Q6HR FLORINDA Administration Lactated Ringer's 1,000 mls @ 150 mls/hr 11/05/24 13:40 11/05/24 14:25 Lr - Lactated Ringers Iv IV CONT 150 mls/hr .Q6H40M FLORINDA Infusion Melatonin 5 mg 11/04/24 21:10 11/04/24 21:15 Melatonin 5 Mg Tablet PO 5 mg HS PRN Administration insomnia Metoprolol Tartrate 12.5 mg 11/04/24 09:55 11/04/24 20:34 Metoprolol Tartrate 12.5 Mg Tablet PO 12.5 mg Q12HR FLORINDA Administration Ondansetron HCl 4 mg 11/03/24 09:07 11/03/24 17:03 Ondansetron Inj 4 Mg/2 Ml Vial IV PUSH 4 mg Q4H PRN Administration Nausea Oxycodone HCl 2.5 mg 11/03/24 13:59 Oxycodone Hcl (*Crx) 2.5 Mg Tab Ir PO Q6H PRN Pain Rated 7-10 Oxycodone/Acetaminophen 1 tablet 11/03/24 13:58 Oxycodone/Acetaminophen (*Crx) 5-325 Mg Tablet PO Q6H PRN Pain Rated 7-10 Pantoprazole Sodium 40 mg 11/03/24 15:10 11/05/24 11:06 Pantoprazole Sodium Iv 40 Mg Vial IV PUSH 40 mg QAM FLORINDA Administration Pravastatin Sodium 40 mg 11/04/24 09:00 11/04/24 08:10 Pravastatin Sodium 20 Mg Tablet PO 40 mg DAILY FLORINDA Administration Radiology Results: ITS Impressions Abdomen/Pelvis CT 11/03/24 08:16 Impression: Status post interval surgery with right lower quadrant double barrel ileostomy present. There is a 7.2 x 7.1 cm hematoma in the subcutaneous soft tissues at the ileostomy site. Stable focal wall thickening and adjacent inflammatory change and/or carcinomatosis at the hepatic flexure the colon. Possible focal wall irregularity at this region. Correlate for focal colitis/diverticulitis or possibly neoplasm. Appearance is similar to prior exam at this region. Cholelithiasis. Focal atelectasis or possibly pneumonitis the left lung base. Chest X-Ray 11/04/24 06:37 Impression: Central congestive change and mild interstitial edema pattern. Stable Mediport. Stable elevation right hemidiaphragm. Labs Labs: Laboratory Results - last 24 hr 11/05/24 04:47 WBC 12.4 H RBC 3.19 L Hgb 9.0 L Hct 28.1 L MCV 88.1 MCH 28.2 MCHC 32.0 RDW 13.5 Plt Count 298 MPV 9.8 Immature Gran % (Auto) 0.6 H Neut % (Auto) 77.2 H Lymph % (Auto) 12.1 L [place] % (Auto) 7.6 Eos % (Auto) 2.2 Baso % (Auto) 0.3 Lymph # (Auto) 1.51 [place] # (Auto) 0.9 H Eos # (Auto) 0.3 Baso # (Auto) 0.0 Abs Immat Gran (auto) 0.08 H Absolute Neuts (auto) 9.6 H Absolute Nucleated RBC 0.000 Nucleated RBC % 0.0 Sodium 136 L Potassium 3.4 Chloride 95 L Carbon Dioxide 32 H Anion Gap 9 BUN 19 H Creatinine 0.54 L Estim Creat Clear Calc 81 Estimated GFR > 60 Glucose 177 H Calcium 8.5 Phosphorus 3.1 Magnesium 2.1 Total Bilirubin 1.2 AST 26 ALT 23 Alkaline Phosphatase 116 Total Protein 7.0 Albumin 3.2 L
[2024-11-05] MEDS: POTASSIUM CHLORIDE 20 MEQ PACKET (FOR LIQUID) 40 MEQ PO (15:20)
[2024-11-05] MEDS: PRAVASTATIN SODIUM 20 MG TABLET 40 MG PO (15:20)
[2024-11-05] MEDS: ASPIRIN 81 MG CHEWABLE TABLET PO (15:20)
[2024-11-05] MEDS: EZETIMIBE 10 MG TABLET PO (15:20)
[2024-11-05] MEDS: METOPROLOL TARTRATE 12.5 MG TABLET PO ×2 (15:21→23:45)
[2024-11-05] MEDS: ACETAMINOPHEN 500 MG TABLET PO (17:26)
[2024-11-06 03:47] LABS: Basophils Percent Auto 0.3 % (0.2-1.2); Eosinophils Absolute Auto 0.3 K/mm3 (0-0.3); Eosinophils Percent Auto 2.6 % (0-4.4); Hematocrit 28.5 % (37.0-47.0); Hemoglobin 9.1 g/dL (12.0-15.0); Immature Granulocyte Absolute 0.06 K/mm3 (0.00-0.031); Immature Granulocyte Percent A 0.5 % (0-0.5); Lymphocytes Absolute Auto 1.71 K/mm3 (0.9-3.2); Lymphocytes Percent Auto 14.6 % (18.3-44.2); Mean Corpuscular HGB Conc 31.9 g/dl (32-36); Mean Corpuscular Volume 87.7 fl (80-100); Mean Platelet Volume 9.2 fl (7.4-10.4); Monocytes Absolute Auto 0.8 K/mm3 (0.1-0.6); Monocytes Percent Auto 6.6 % (2.6-8.5); Neutrophils Absolute Auto 8.9 K/mm3 (1.3-6.7); Neutrophils Percent Auto 75.4 % (45.5-73.1); Platelet Count Result 322 k/mm3 (150-375); Red Blood Count 3.25 M/mm3 (4.2-5.4); Red Cell Distribution Width 13.6 % (11.5-14.5); White Blood Count 11.7 K/mm3 (4.5-10.0)
[2024-11-06 03:59] LABS: Alanine Aminotransferase 21 U/L (6-35); Albumin Level 3.3 g/dL (3.5-5.1); Alkaline Phosphatase 111 U/L (38-126); Anion Gap 8 mmol/L (4-12); Aspartate Amino Transferase 27 U/L (14-36); Bilirubin,Total 1.3 mg/dL (0.2-1.3); Blood Urea Nitrogen 16 mg/dL (7-17); Calcium 8.4 mg/dL (8.4-10.2); Carbon Dioxide 29 mmol/L (22-30); Chloride 98 mmol/L (98-107); Estimated CRCL calculation 82 ml/min; Estimated Glomerular Filt Rate > 60; Glucose 179 mg/dL (65-110); Phosphorus 2.6 mg/dL (2.5-4.5); Potassium 3.3 mmol/L (3.4-5.0); Sodium 135 mmol/L (137-145)
[2024-11-06] MEDS: PIPERACILLN/TAZ 3.375GM/NS50ML 3.375 GM/50 ML BAG IVPB ×2 (05:24→11:13)
[2024-11-06 08:00] VITALS: BP 134/77; PULSE 97; RESP 18; TEMP 36.3; O2SAT 95
[2024-11-06] MEDS: POTASSIUM CHLORIDE 20 MEQ PACKET (FOR LIQUID) 40 MEQ PO (08:29)
[2024-11-06 08:31] VITALS: PULSE 95
[2024-11-06] MEDS: EZETIMIBE 10 MG TABLET PO (08:31)
[2024-11-06] MEDS: METOPROLOL TARTRATE 25 MG TABLET PO (08:31)
[2024-11-06] MEDS: amLODIPine BESYLATE 5 MG TABLET PO (08:31)
[2024-11-06] MEDS: ASPIRIN 81 MG CHEWABLE TABLET PO (08:31)
[2024-11-06] MEDS: PANTOPRAZOLE SODIUM IV 40 MG VIAL IV PUSH (08:32)
[2024-11-06] MEDS: PRAVASTATIN SODIUM 20 MG TABLET 40 MG PO (08:32)
--- NOTE | 2024-11-06 09:28 | PCSTNOTE ---
attempted bedside swallow eval per orders; pt refused stating she is not having any difficulty with swallowing; spoke with RN who will cancel order
--- NOTE | 2024-11-06 10:11 | WPDANESPN ---
Anes - Prog Note Post-Op Date/Time: 11/06/24 10:11 Cardiovascular status: normal Respiratory status: normal Airway patency: baseline Mental status: baseline Post-Op hydration status: normal Vital Signs: Last Vital Signs Temp 97.3 F L 11/06/24 08:00 Pulse 95 11/06/24 08:31 Resp 18 11/06/24 08:00 BP 134/77 11/06/24 08:00 Pulse Ox 95 11/06/24 08:00 O2 Del Method Room Air 11/05/24 20:00 O2 Flow Rate 2 11/05/24 14:41 Pain Score (VAS): 0/10 I/O: Intake & Output 11/05/24 11/06/24 11/06/24 23:59 07:59 15:59 Intake Total 530 450 Output Total 100 200 Balance 430 250 Laboratory Tests 11/06/24 03:42 11/06/24 03:42 11/06/24 03:42 WBC 11.7 H RBC 3.25 L Hgb 9.1 L Hct 28.5 L MCV 87.7 MCH 28.0 MCHC 31.9 L RDW 13.6 Plt Count 322 MPV 9.2 Immature Gran % (Auto) 0.5 Neut % (Auto) 75.4 H Lymph % (Auto) 14.6 L [place] % (Auto) 6.6 Eos % (Auto) 2.6 Baso % (Auto) 0.3 Lymph # (Auto) 1.71 [place] # (Auto) 0.8 H Eos # (Auto) 0.3 Baso # (Auto) 0.0 Abs Immat Gran (auto) 0.06 H Absolute Neuts (auto) 8.9 H Absolute Nucleated RBC 0.000 Nucleated RBC % 0.0 Sodium 135 L Potassium 3.3 L Chloride 98 Carbon Dioxide 29 Anion Gap 8 BUN 16 Creatinine 0.53 L Estim Creat Clear Calc 82 Estimated GFR > 60 Glucose 179 H Calcium 8.4 Phosphorus 2.6 Magnesium 2.0 Total Bilirubin 1.3 AST 27 ALT 21 Alkaline Phosphatase 111 Total Protein 7.0 Albumin 3.3 L Post-procedural complaints: none Patient Feedback: Patient satisfied with anesthetic care.
[2024-11-06] MEDS: ONDANSETRON INJ 4 MG/2 ML VIAL IV PUSH (11:09)
--- NOTE | 2024-11-06 12:12 | P.PNIM_ITS ---
Progress Note: A&P Assessment and Plan (1) Sepsis: Qualifiers: Sepsis acute organ dysfunction status: unspecified Sepsis type: sepsis due to unspecified organism Qualified Code(s): A41.9 - Sepsis, unspecified o rganism Code(s): A41.9 - Sepsis, unspecified organism Status: Acute Assessment and Plan: RESOLVED Patient presented with nausea, vomiting, abdominal pain and bruising, discolored ostomy -patient was found to be hypotensive in the ER, with elevated lactic acid, acute kidney injury, leukocytosis -adequately fluid-resuscitated with 30 mL/kg IV fluids -lactic acid has normalized, leukocytosis improved significantly -creatinine has normalized -urine output has been adequate 11/03: Blood cultures: Preliminary report with no growth x2 -remains on maintenance IV fluids at 125 mL/hr. Have asked the bedside RN to DC the IV fluids since chest x-ray showed mild pulmonary edema and patient tolerating oral diet -continue Zosyn for possible colitis on CT scan of the abdomen and pelvis (2) Colitis: Code(s): K52.9 - Noninfective gastroenteritis and colitis, unspecified Status: Acute Assessment and Plan: 11/06/2024: Zosyn will be discontinued 11/03/2024: CT scan of the abdomen Impression: Status post interval surgery with right lower quadrant double barrel ileostomy present. There is a 7.2 x 7.1 cm hematoma in the subcutaneous soft tissues at the ileostomy site. Stable focal wall thickening and adjacent inflammatory change and/or carcinomatosis at the hepatic flexure the colon. Possible focal wall irregularity at this region. Correlate for focal colitis/diverticulitis or possibly neoplasm. Appearance is similar to prior exam at this region. Cholelithiasis. Focal atelectasis or possibly pneumonitis the left lung base. (3) Nausea and vomiting in adult: Code(s): R11.2 - Nausea with vomiting, unspecified Status: Resolved Assessment and Plan: Resolved, could be related to severe sepsis/acidosis, acute kidney injury -patient states when she takes solids or liquids, she feels something is getting stuck in her throat, also has nausea and vomiting -GI has been consulted, -11/05/2024: EGD was normal -continue full liquid diet advanced as tolerated (4) Abdominal wall hematoma: Code(s): S30.1XXA - Contusion of abdominal wall, initial encounter Status: Acute Assessment and Plan: Abdominal wall hematoma as seen on the CT scan above, -coags are within normal limits -continue to monitor (5) Acute kidney injury: Code(s): N17.9 - Acute kidney failure, unspecified Status: Acute Assessment and Plan: RESOLVED Patient presented with acute kidney injury likely related to decreased oral intake due to nausea and vomiting and unable to keep anything down.,, hypotension, severe sepsis -patient adequately fluid-resuscitated -urine output has been adequate, kidney functions have normalized -continue to monitor urine output, renal function electrolytes (6) Ileostomy in place: Code(s): Z93.2 - Ileostomy status Status: Acute Assessment and Plan: Some darkening of the stoma noted continues to have liquid brown stool from ileostomy, - Ostomy nurse digitally probed to the opening of the loop ileostomy with no tightness or palpable stricturing past the stoma. 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 Dewayne Ghotra Stress ulcer prophylaxis: Protonix DVT prophylaxis: SCDs, no chemoprophylaxis due to abdominal wall hematoma Code status: Full code PATIENT WILL BE DISCHARGED TODAY Subjective Date/time seen: 11/06/24 12:12 Interval history: 68-year-old female with recent admission to [facility], was found to have knee obstructing transverse colon mass, underwent laparoscopic diverting loop ileostomy, laparoscopic incisional omental biopsy, placement of a right subclavian vein Port-A-Cath on 10/27/[address] Otero. She was discharged on 10/30/2024. To return on 11/03/2024 with complaints of nausea, vomiting, unable to hold anything down, was found to be in sepsis with elevated lactic acid, hypotension with systolic blood pressures in the 80s, WBC count of 19.8. Acute kidney injury with a creatinine 1.4. CT abdomen and pelvis showed a 7.2 x 7.1 cm hematoma in the subcutaneous tissue at the the ileostomy site. Surgery was consulted 09/04/2024: EGD was done for dysphagia: Normal EGD 11/06/2024: Patient being seen for hospitalist group. Denies any shortness of breath, chest pain, abdominal pain, nausea, vomiting. EGD done yesterday was normal, patient able to tolerate full liquid diet. States she is back to baseline and wants to go home. Patient is afebrile, hemodynamically stable. Urine output has been adequate. On room air with adequate O2 sat, urine output has been adequate. Patient has been sitting up on the couch. Review of Systems Review of Systems: All systems reviewed & are unremarkable except as noted in HPI and below Exam Narrative: APPEARANCE: Well appearing, no pain, no distress, well-nourished. HEAD: normocephalic, atraumatic. EYES: PERRLA/EOMI, conjunctivae clear. NOSE: Normal no drainage NECK: Supple. No adenopathy, no masses. RESPIRATORY: Airway patent, respirations nonlabored. Clear to auscultation annie aterally, no rales, rhonchi, wheezing. CARDIOVASCULAR: Regular rate and rhythm without murmurs rubs or gallops. ABDOMINAL: Normoactive bowel sounds, soft distended, patient does have an ileostomy bag in place, stoma looks more pink this morning continues to have liquid brown stool from ileostomy, bruising and ecchymosis noted periumbilical region. Firm and palpable hematoma. Ostomy nurse digitally probed to the opening of the loop ileostomy with no tightness or palpable stricturing past the stoma. MUSCULOSKELETAL: Moves all extremities. Strength/ROM intact, No edema, No calf tenderness. NEURO: Alert and oriented x3. Moves all extremities, nonfocal SKIN: postop bruising across abdomen GI: Auscultation: normal bowel sounds Other: Abdomen nondistended and soft with trocar site incisions with no erythema or drainage. There is bruising noted in the mid lower abdomen. Her ileostomy is in the right lower quadrant with firmness palpable in the subcu tissues around the ileostomy consistent with the hematoma seen on CT scan. The overlying skin over the hematoma and around the ileostomy appears healthy with no skin breakdown, no bruising, no redness, and only minimal tenderness in this area. The ileostomy appliance was removed and she has the loop ileostomy bar in place. This stoma is slightly dark with some sloughing, but appears viable. There is active spilling of liquid brown stool from ileostomy, which appears to be functioning well. Ostomy nurse digitally probed to the opening of the loop ileostomy with no tightness or palpable stricturing past the stoma. Objective Data Vital Signs Vital Signs: Vital Signs - 24 hr 11/05/24 13:40 11/05/24 14:31 11/05/24 14:41 Temperature 96.3 F L Pulse Rate 109 H 97 96 Respiratory Rate 109 H 23 H 23 H Blood Pressure 162/99 H 132/61 134/64 Pulse Oximetry 95 95 96 Oxygen Delivery Room Air Nasal Cannula Nasal Cannula Oxygen Flow Rate 2 2 11/05/24 14:51 11/05/24 15:17 11/05/24 15:21 Temperature 97.9 F Pulse Rate 96 95 97 Respiratory Rate 21 H 20 Blood Pressure 137/64 155/77 H Pulse Oximetry 94 95 Oxygen Delivery Room Air Oxygen Flow Rate 11/05/24 20:00 11/05/24 23:43 11/06/24 08:00 Temperature 97.5 F L 97.3 F L Pulse Rate 97 92 97 Respiratory Rate 20 18 18 Blood Pressure 155/63 H 134/77 Pulse Oximetry 95 90 95 Oxygen Delivery Room Air Oxygen Flow Rate 11/06/24 08:31 11/06/24 10:52 Temperature Pulse Rate 95 Respiratory Rate Blood Pressure Pulse Oximetry Oxygen Delivery Room Air Oxygen Flow Rate Intake/Output Intake/Output: Intake & Output 11/03/24 11/04/24 11/05/24 11/06/24 23:59 23:59 23:59 23:59 Intake Total 4795.0 2220 1242.5 620 Output Total 650 950 175 200 Balance 4145.0 1270 1067.5 420 Meds/Results Medications: Active Medications Generic Name Dose Route Start Last Admin Trade Name Freq PRN Reason Stop Dose Admin Acetaminophen 500 mg 11/04/24 21:10 11/05/24 17:26 Acetaminophen 500 Mg Tablet PO 500 mg Q6H PRN Administration Mild Pain (1-3) or Fever Amlodipine Besylate 5 mg 11/06/24 09:00 11/06/24 08:31 Amlodipine Besylate 5 Mg Tablet PO 5 mg DAILY FLORINDA Administration Aspirin 81 mg 11/05/24 08:00 11/06/24 08:31 Aspirin 81 Mg Chewable Tablet PO 81 mg DAILY@0800 FLORINDA Administration Benzonatate 100 mg 11/03/24 15:49 Benzonatate 100 Mg Capsule PO Q8H PRN Cough Ezetimibe 10 mg 11/04/24 09:00 11/06/24 08:31 Ezetimibe 10 Mg Tablet PO 10 mg DAILY FLORINDA Administration Piperacillin/Tazobactam/Dextrose 3.375 gm in 50 mls @ 100 mls/hr 11/03/24 17:00 11/06/24 11:43 Zosyn 3.375 Gm/Ns 50 Ml IVPB Infused Q6HR FLORINDA Infusion Melatonin 5 mg 11/04/24 21:10 11/04/24 21:15 Melatonin 5 Mg Tablet PO 5 mg HS PRN Administration insomnia Metoprolol Tartrate 25 mg 11/06/24 09:00 11/06/24 08:31 Metoprolol Tartrate 25 Mg Tablet PO 25 mg Q12HR FLORINDA Administration Ondansetron HCl 4 mg 11/03/24 09:07 11/06/24 11:09 Ondansetron Inj 4 Mg/2 Ml Vial IV PUSH 4 mg Q4H PRN Administration Nausea Oxycodone HCl 2.5 mg 11/03/24 13:59 Oxycodone Hcl (*Crx) 2.5 Mg Tab Ir PO Q6H PRN Pain Rated 7-10 Oxycodone/Acetaminophen 1 tablet 11/03/24 13:58 Oxycodone/Acetaminophen (*Crx) 5-325 Mg Tablet PO Q6H PRN Pain Rated 7-10 Pantoprazole Sodium 40 mg 11/03/24 15:10 11/06/24 08:32 Pantoprazole Sodium Iv 40 Mg Vial IV PUSH 40 mg QAM FLORINDA Administration Pravastatin Sodium 40 mg 11/04/24 09:00 11/06/24 08:32 Pravastatin Sodium 20 Mg Tablet PO 40 mg DAILY FLORINDA Administration Radiology Results: ITS Impressions Abdomen/Pelvis CT 11/03/24 08:16 Impression: Status post interval surgery with right lower quadrant double barrel ileostomy present. There is a 7.2 x 7.1 cm hematoma in the subcutaneous soft tissues at the ileostomy site. Stable focal wall thickening and adjacent inflammatory change and/or carci nomatosis at the hepatic flexure the colon. Possible focal wall irregularity at this region. Correlate for focal colitis/diverticulitis or possibly neoplasm. Appearance is similar to prior exam at this region. Cholelithiasis. Focal atelectasis or possibly pneumonitis the left lung base. Chest X-Ray 11/04/24 06:37 Impression: Central congestive change and mild interstitial edema pattern. Stable Mediport. Stable elevation right hemidiaphragm. Labs Labs: Laboratory Results - last 24 hr 11/06/24 03:42 WBC 11.7 H RBC 3.25 L Hgb 9.1 L Hct 28.5 L MCV 87.7 MCH 28.0 MCHC 31.9 L RDW 13.6 Plt Count 322 MPV 9.2 Immature Gran % (Auto) 0.5 Neut % (Auto) 75.4 H Lymph % (Auto) 14.6 L [place] % (Auto) 6.6 Eos % (Auto) 2.6 Baso % (Auto) 0.3 Lymph # (Auto) 1.71 [place] # (Auto) 0.8 H Eos # (Auto) 0.3 Baso # (Auto) 0.0 Abs Immat Gran (auto) 0.06 H Absolute Neuts (auto) 8.9 H Absolute Nucleated RBC 0.000 Nucleated RBC % 0.0 Sodium 135 L Potassium 3.3 L Chloride 98 Carbon Dioxide 29 Anion Gap 8 BUN 16 Creatinine 0.53 L Estim Creat Clear Calc 82 Estimated GFR > 60 Glucose 179 H Calcium 8.4 Phosphorus 2.6 Magnesium 2.0 Total Bilirubin 1.3 AST 27 ALT 21 Alkaline Phosphatase 111 Total Protein 7.0 Albumin 3.3 L
--- NOTE | 2024-11-06 12:16 | WPDGIPROGNO ---
Progress Note: A&P Assessment and Plan (1) Nausea and vomiting in adult: Code(s): R11.2 - Nausea with vomiting, unspecified Status: Resolved Assessment and Plan: egd no major findings, no esophagitis, no ring still with emesis, diet as tolerated and antiemetics hopefully home soon (2) Sepsis: Qualifiers: Sepsis acute organ dysfunction status: unspecified Sepsis type: sepsis due to unspecified organism Qualified Code(s): A41.9 - Sepsis, unspecified organism Code(s): A41.9 - Sepsis, unspecified organism Status: Acute Assessment and Plan: resolved with medical treatment (3) Abdominal wall hematoma: Code(s): S30.1XXA - Contusion of abdominal wall, initial encounter Status: Acute Assessment and Plan: Abdominal wall hematoma as seen on the CT scan above, -coags are within normal limits -continue to monitor (4) Acute kidney injury: Code(s): N17.9 - Acute kidney failure, unspecified Status: Acute Assessment and Plan: resolved (5) Ileostomy in place: Code(s): Z93.2 - Ileostomy status Status: Acute (6) 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: Code(s): C18.9 - Malignant neoplasm of colon, unspecified; C77.2 - Secondary and unspecified malignant neoplasm of intra-abdominal lymph nodes Status: Acute Assessment and Plan: Hematology/oncology has been consulted as patient had an outpatient appointment on 11/04/[address] Buchanan Subjective Date/time seen: 11/06/24 12:16 Interval history: egd yesterday without major findings she had episode of emesis earlier Review of Systems Review of Systems: All systems reviewed & are unremarkable except as noted in HPI and below Objective Data Vital Signs Vital Signs: Vital Signs - 24 hr 11/05/24 13:40 11/05/24 14:31 11/05/24 14:41 Temperature 96.3 F L Pulse Rate 109 H 97 96 Respiratory Rate 109 H 23 H 23 H Blood Pressure 162/99 H 132/61 134/64 Pulse Oximetry 95 95 96 Oxygen Delivery Room Air Nasal Cannula Nasal Cannula Oxygen Flow Rate 2 2 11/05/24 14:51 11/05/24 15:17 11/05/24 15:21 Temperature 97.9 F Pulse Rate 96 95 97 Respiratory Rate 21 H 20 Blood Pressure 137/64 155/77 H Pulse Oximetry 94 95 Oxygen Delivery Room Air Oxygen Flow Rate 11/05/24 20:00 11/05/24 23:43 11/06/24 08:00 Temperature 97.5 F L 97.3 F L Pulse Rate 97 92 97 Respiratory Rate 20 18 18 Blood Pressure 155/63 H 134/77 Pulse Oximetry 95 90 95 Oxygen Delivery Room Air Oxygen Flow Rate 11/06/24 08:31 11/06/24 10:52 Temperature Pulse Rate 95 Respiratory Rate Blood Pressure Pulse Oximetry Oxygen Delivery Room Air Oxygen Flow Rate Intake/Output Intake/Output: Intake & Output 11/03/24 11/04/24 11/05/24 11/06/24 23:59 23:59 23:59 23:59 Intake Total 4795.0 2220 1242.5 620 Output Total 650 950 175 200 Balance 4145.0 1270 1067.5 420 Meds/Results Medications: Active Medications Generic Name Dose Route Start Last Admin Trade Name Freq PRN Reason Stop Dose Admin Acetaminophen 500 mg 11/04/24 21:10 11/05/24 17:26 Acetaminophen 500 Mg Tablet PO 500 mg Q6H PRN Administration Mild Pain (1-3) or Fever Amlodipine Besylate 5 mg 11/06/24 09:00 11/06/24 08:31 Amlodipine Besylate 5 Mg Tablet PO 5 mg DAILY FLORINDA Administration Aspirin 81 mg 11/05/24 08:00 11/06/24 08:31 Aspirin 81 Mg Chewable Tablet PO 81 mg DAILY@0800 FLORINDA Administration Benzonatate 100 mg 11/03/24 15:49 Benzonatate 100 Mg Capsule PO Q8H PRN Cough Ezetimibe 10 mg 11/04/24 09:00 11/06/24 08:31 Ezetimibe 10 Mg Tablet PO 10 mg DAILY FLORINDA Administration Melatonin 5 mg 11/04/24 21:10 11/04/24 21:15 Melatonin 5 Mg Tablet PO 5 mg HS PRN Administration insomnia Metoprolol Tartrate 25 mg 11/06/24 09:00 11/06/24 08:31 Metoprolol Tartrate 25 Mg Tablet PO 25 mg Q12HR FLORINDA Administration Ondansetron HCl 4 mg 11/03/24 09:07 11/06/24 11:09 Ondansetron Inj 4 Mg/2 Ml Vial IV PUSH 4 mg Q4H PRN Administration Nausea Oxycodone HCl 2.5 mg 11/03/24 13:59 Oxycodone Hcl (*Crx) 2.5 Mg Tab Ir PO Q6H PRN Pain Rated 7-10 Oxycodone/Acetaminophen 1 tablet 11/03/24 13:58 Oxycodone/Acetaminophen (*Crx) 5-325 Mg Tablet PO Q6H PRN Pain Rated 7-10 Pantoprazole Sodium 40 mg 11/03/24 15:10 11/06/24 08:32 Pantoprazole Sodium Iv 40 Mg Vial IV PUSH 40 mg QAM FLORINDA Administration Pravastatin Sodium 40 mg 11/04/24 09:00 11/06/24 08:32 Pravastatin Sodium 20 Mg Tablet PO 40 mg DAILY FLORINDA Administration Radiology Results: ITS Impressions Abdomen/Pelvis CT 11/03/24 08:16 Impression: Status post interval surgery with right lower quadrant double barrel ileostomy present. There is a 7.2 x 7.1 cm hematoma in the subcutaneous soft tissues at the ileostomy site. Stable focal wall thickening and adjacent inflammatory change and/or carcinomatosis at the hepatic flexure the colon. Possible focal wall irregularity at this region. Correlate for focal colitis/diverticulitis or possibly neoplasm. Appearance is similar to prior exam at this region. Cholelithiasis. Focal atelectasis or possibly pneumonitis the left lung base. Chest X-Ray 11/04/24 06:37 Impression: Central congestive change and mild interstitial edema pattern. Stable Mediport. Stable elevation right hemidiaphragm. Labs Labs: Laboratory Results - last 24 hr 11/06/24 03:42 WBC 11.7 H RBC 3.25 L Hgb 9.1 L Hct 28.5 L MCV 87.7 MCH 28.0 MCHC 31.9 L RDW 13.6 Plt Count 322 MPV 9.2 Immature Gran % (Auto) 0.5 Neut % (Auto) 75.4 H Lymph % (Auto) 14.6 L [place] % (Auto) 6.6 Eos % (Auto) 2.6 Baso % (Auto) 0.3 Lymph # (Auto) 1.71 [place] # (Auto) 0.8 H Eos # (Auto) 0.3 Baso # (Auto) 0.0 Abs Immat Gran (auto) 0.06 H Absolute Neuts (auto) 8.9 H Absolute Nucleated RBC 0.000 Nucleated RBC % 0.0 Sodium 135 L Potassium 3.3 L Chloride 98 Carbon Dioxide 29 Anion Gap 8 BUN 16 Creatinine 0.53 L Estim Creat Clear Calc 82 Estimated GFR > 60 Glucose 179 H Calcium 8.4 Phosphorus 2.6 Magnesium 2.0 Total Bilirubin 1.3 AST 27 ALT 21 Alkaline Phosphatase 111 Total Protein 7.0 Albumin 3.3 L
--- NOTE | 2024-11-06 13:06 | PCOTNOTE ---
Attempted to see pt. for occupational therapy evaluation. Per Physical therapy pt. demonstrated adequate safety in mobility during evaluation and declines need for additional therapy. Discussed with patient and confirmed with nursing that pt. declines need for OT services at this time. Reorder if this changes.
--- NOTE | 2024-11-06 14:33 | P.PN_ITS ---
Progress Note: A&P Assessment and Plan (1) Ileostomy in place: Code(s): Z93.2 - Ileostomy status Status: Acute Assessment and Plan: Patient admitted to the hospital for acute dehydration and acute kidney injury likely secondary due to high ileostomy output and poor p.o. intake due to nausea vomiting. She did not have evidence of a bowel obstruction. Was found to have an abdominal wall hematoma which was not infected. Leukocytosis the time of admission quickly resolved but she was placed on Zosyn for IV antibiotics initially. Sepsis was initially thought but no source of sepsis was found her blood cultures are negative. No other sources such as pulmonary, urinary, blood, or wound infections worse found. IV antibiotics were stopped and her white blood cell count remained normal and she was stable and so I do not believe she needs to be discharged on oral antibiotics. EGD was performed showing no obvious structural issues with her esophagus causing her nausea. Her nausea improved dramatically and she was able to eat and tolerate solid food without difficulty. The ostomy was performing well as the ostomy bridge was removed. She be discharged from hospital today with follow-up to see me in the office in 1 week. She will need to reschedule her appointment with Dr. Buchanan for her oncology visit to start her chemotherapy. (2) Nausea and vomiting in adult: Code(s): R11.2 - Nausea with vomiting, unspecified Status: Resolved Subjective Date/time seen: 11/06/24 14:33 Interval history: Patient is doing much better today. She feels good and is up sitting in a chair. Eating solid diet without difficulty. She had EGD yesterday showing no esophageal strictures or webs or any lesions causing her prior symptoms of dysphagia and coughing when she eats. My blood cell count is now down to 11,000. She has been off antibiotics for 48hours. She wants to go home today. Exam GI: Other: Abdomen is soft and nondistended. There is ecchymosis which is resolving around the loop ileostomy and in the lower abdominal wall. Hematoma is stable and minimally tender. Does not appear to be infected. Loop ileostomy is viable and productive of small bowel contents which appears normal her there was no bleeding from the ostomy. Objective Data Vital Signs Vital Signs: Vital Signs - 24 hr 11/05/24 14:41 11/05/24 14:51 11/05/24 15:17 Temperature 36.6 C Pulse Rate 96 96 95 Respiratory Rate 23 H 21 H 20 Blood Pressure 134/64 137/64 155/77 H Pulse Oximetry 96 94 95 Oxygen Delivery Nasal Cannula Room Air Oxygen Flow Rate 2 11/05/24 15:21 11/05/24 20:00 11/05/24 23:43 Temperature 36.4 C L Pulse Rate 97 97 92 Respiratory Rate 20 18 Blood Pressure 155/63 H Pulse Oximetry 95 90 Oxygen Delivery Room Air Oxygen Flow Rate 11/06/24 08:00 11/06/24 08:31 11/06/24 10:52 Temperature 36.3 C L Pulse Rate 97 95 Respiratory Rate 18 Blood Pressure 134/77 Pulse Oximetry 95 Oxygen Delivery Room Air Oxygen Flow Rate Intake/Output Intake/Output: Intake & Output 11/03/24 11/04/24 11/05/24 11/06/24 23:59 23:59 23:59 23:59 Intake Total 4795.0 2220 1242.5 620 Output Total 650 950 175 200 Balance 4145.0 1270 1067.5 420 Meds/Results Medications: Active Medications Generic Name Dose Route Start Last Admin Trade Name Freq PRN Reason Stop Dose Admin Acetaminophen 500 mg 11/04/24 21:10 11/05/24 17:26 Acetaminophen 500 Mg Tablet PO 500 mg Q6H PRN Administration Mild Pain (1-3) or Fever Amlodipine Besylate 5 mg 11/06/24 09:00 11/06/24 08:31 Amlodipine Besylate 5 Mg Tablet PO 5 mg DAILY FLORINDA Administration Aspirin 81 mg 11/05/24 08:00 11/06/24 08:31 Aspirin 81 Mg Chewable Tablet PO 81 mg DAILY@0800 FLORINDA Administration Benzonatate 100 mg 11/03/24 15:49 Benzonatate 100 Mg Capsule PO Q8H PRN Cough Ezetimibe 10 mg 11/04/24 09:00 11/06/24 08:31 Ezetimibe 10 Mg Tablet PO 10 mg DAILY FLORINDA Administration Melatonin 5 mg 11/04/24 21:10 11/04/24 21:15 Melatonin 5 Mg Tablet PO 5 mg HS PRN Administration insomnia Metoprolol Tartrate 25 mg 11/06/24 09:00 11/06/24 08:31 Metoprolol Tartrate 25 Mg Tablet PO 25 mg Q12HR FLORINDA Administration Ondansetron HCl 4 mg 11/03/24 09:07 11/06/24 11:09 Ondansetron Inj 4 Mg/2 Ml Vial IV PUSH 4 mg Q4H PRN Administration Nausea Oxycodone HCl 2.5 mg 11/03/24 13:59 Oxycodone Hcl (*Crx) 2.5 Mg Tab Ir PO Q6H PRN Pain Rated 7-10 Oxycodone/Acetaminophen 1 tablet 11/03/24 13:58 Oxycodone/Acetaminophen (*Crx) 5-325 Mg Tablet PO Q6H PRN Pain Rated 7-10 Pantoprazole Sodium 40 mg 11/03/24 15:10 11/06/24 08:32 Pantoprazole Sodium Iv 40 Mg Vial IV PUSH 40 mg QAM FLORINDA Administration Pravastatin Sodium 40 mg 11/04/24 09:00 11/06/24 08:32 Pravastatin Sodium 20 Mg Tablet PO 40 mg DAILY FLORINDA Administration Radiology Results: ITS Impressions Abdomen/Pelvis CT 11/03/24 08:16 Impression: Status post interval surgery with right lower quadrant double barrel ileostomy present. There is a 7.2 x 7.1 cm hematoma in the subcutaneous soft tissues at the ileostomy site. Stable focal wall thickening and adjacent inflammatory change and/or carcinomatosis at the hepatic flexure the colon. Possible focal wall irregularity at this region. Correlate for focal colitis/diverticulitis or po ssibly neoplasm. Appearance is similar to prior exam at this region. Cholelithiasis. Focal atelectasis or possibly pneumonitis the left lung base. Chest X-Ray 11/04/24 06:37 Impression: Central congestive change and mild interstitial edema pattern. Stable Mediport. Stable elevation right hemidiaphragm. Labs Labs: Laboratory Results - last 24 hr 11/06/24 03:42 WBC 11.7 H RBC 3.25 L Hgb 9.1 L Hct 28.5 L MCV 87.7 MCH 28.0 MCHC 31.9 L RDW 13.6 Plt Count 322 MPV 9.2 Immature Gran % (Auto) 0.5 Neut % (Auto) 75.4 H Lymph % (Auto) 14.[address] [place] % (Auto) 6.6 Eos % (Auto) 2.6 Baso % (Auto) 0.3 Lymph # (Auto) 1.71 [place] # (Auto) 0.8 H Eos # (Auto) 0.3 Baso # (Auto) 0.0 Abs Immat Gran (auto) 0.06 H Absolute Neuts (auto) 8.9 H Absolute Nucleated RBC 0.000 Nucleated RBC % 0.0 Sodium 135 L Potassium 3.3 L Chloride 98 Carbon Dioxide 29 Anion Gap 8 BUN 16 Creatinine 0.53 L Estim Creat Clear Calc 82 Estimated GFR > 60 Glucose 179 H Calcium 8.4 Phosphorus 2.6 Magnesium 2.0 Total Bilirubin 1.3 AST 27 ALT 21 Alkaline Phosphatase 111 Total Protein 7.0 Albumin 3.3 L
--- NOTE | 2024-11-06 14:57 | PM.DS ---
DS: Admitting Diagnosis Discharge Date 11/06/2019 Admitting Diagnosis Nausea, vomiting, unable to hold down anything, found to be in sepsis with elevated lactic acid, hypotension, acute kidney injury, CT abdomen pelvis showed a 7.2 x 7.1 cm hematoma in the subcutaneous tissue at the ileostomy site. Also complained of some discoloration of the ostomy. DS: Discharge Diagnosis Discharge Diagnosis (1) Sepsis: Qualifiers: Sepsis acute organ dysfunction status: unspecified Sepsis type: sepsis due to unspecified organism Qualified Code(s): A41.9 - Sepsis, unspecified organism Code(s): A41.9 - Sepsis, unspecified organism Status: Acute Assessment and Plan: RESOLVED Patient presented with nausea, vomiting, abdominal pain and bruising, discolored ostomy -patient was found to be hypotensive in the ER, with elevated lactic acid, acute kidney injury, leukocytosis -adequately fluid-resuscitated with 30 mL/kg IV fluids -lactic acid has normalized, leukocytosis improved significantly -creatinine has normalized -urine output has been adequate 11/03: Blood cultures: Preliminary report with no growth x2 -remains on maintenance IV fluids at 125 mL/hr. Have asked the bedside RN to DC the IV fluids since chest x-ray showed mild pulmonary edema and patient tolerating oral diet -continue Zosyn for possible colitis on CT scan of the abdomen and pelvis (2) Colitis: Code(s): K52.9 - Noninfective gastroenteritis and colitis, unspecified Status: Acute Assessment and Plan: 11/06/2024: Zosyn will be discontinued 11/03/2024: CT scan of the abdomen Impression: Status post interval surgery with right lower quadrant double barrel ileostomy present. There is a 7.2 x 7.1 cm hematoma in the subcutaneous soft tissues at the ileostomy site. Stable focal wall thickening and adjacent inflammatory change and/or carcinomatosis at the hepatic flexure the colon. Possible focal wall irregularity at this region. Correlate for focal colitis/diverticulitis or possibly neoplasm. Appearance is similar to prior exam at this region. Cholelithiasis. Focal atelectasis or possibly pneumonitis the left lung base. (3) Nausea and vomiting in adult: Code(s): R11.2 - Nausea with vomiting, unspecified Status: Resolved Assessment and Plan: Resolved, could be related to severe sepsis/acidosis, acute kidney injury -patient states when she takes solids or liquids, she feels something is getting stuck in her throat, also has nausea and vomiting -GI has been consulted, -11/05/2024: EGD was normal -continue full liquid diet advanced as tolerated (4) Abdominal wall hematoma: Code(s): S30.1XXA - Contusion of abdominal wall, initial encounter Status: Acute Assessment and Plan: Abdominal wall hematoma as seen on the CT scan above, -coags are within normal limits -continue to monitor (5) Acute kidney injury: Code(s): N17.9 - Acute kidney failure, unspecified Status: Acute Assessment and Plan: RESOLVED Patient presented with acute kidney injury likely related to decreased oral intake due to nausea and vomiting and unable to keep anything down.,, hypotension, severe sepsis -patient adequately fluid-resuscitated -urine output has been adequate, kidney functions have normalized -continue to monitor urine output, renal function electrolytes (6) Ileostomy in place: Code(s): Z93.2 - Ileostomy status Status: Acute Assessment and Plan: Some darkening of the stoma noted continues to have liquid brown stool from ileostomy, - Ostomy nurse digitally probed to the opening of the loop ileostomy with no tightness or palpable stricturing past the stoma. 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 Buchanan Plan Stress ulcer prophylaxis: Protonix DVT prophylaxis: SCDs, no chemoprophylaxis due to abdominal wall hematoma Code status: Full code PATIENT WILL BE DISCHARGED TODAY DS: Summary Hospital Course Reason for hospitalization: Nausea, vomiting, unable to hold down anything, found to be in sepsis with elevated lactic acid, hypotension, acute kidney injury, CT abdomen pelvis showed a 7.2 x 7.1 cm hematoma in the subcutaneous tissue at the ileostomy site. Also complained of some discoloration of the ostomy. Hospital Course: 68-year-old female with recent admission to [facility], was found to have knee obstructing transverse colon mass, underwent laparoscopic diverting loop ileostomy, laparoscopic incisional omental biopsy, placement of a right subclavian vein Port-A-Cath on 10/27/[address] Otero. She was discharged on 10/30/2024. To return on 11/03/2024 with complaints of nausea, vomiting, unable to hold anything down, was found to be in sepsis with elevated lactic acid, hypotension with systolic blood pressures in the 80s, WBC count of 19.8. Acute kidney injury with a creatinine 1.4. CT abdomen and pelvis showed a 7.2 x 7.1 cm hematoma in the subcutaneous tissue at the the ileostomy site. Surgery evaluated the patient, ileostomy is functioning well and stoma is viable. Hematoma in the subcu tissue and the ileo STEMI site appears stable with no signs of infection at this time. Patient had some nausea and vomiting and felt that something was being stuck in her throat. 11/05: GI evaluated the patient, EGD was performed showing no obvious structural issues with her esophagus causing her nausea -patient's nausea improved and she is able to eat and tolerate solid food without difficulty. The ostomy was performing well and the ostomy bridge was removed on 11/06/2024. Surgery was okay for discharge with follow-up in his surgery office in 1 week. Patient has to reschedule appointment Dr. Buchanan for oncology visit to start her chemotherapy P Patient is stable on discharge Status at Discharge Functional status at discharge: independent ambulation Time Spent with Patient Time attestation: Total time spent providing and/or coordinating discharge services: Exam Narrative: APPEARANCE: Well appearing, no pain, no distress, well-nourished. HEAD: normocephalic, atraumatic. EYES: PERRLA/EOMI, conjunctivae clear. NOSE: Normal no drainage NECK: Supple. No adenopathy, no masses. RESPIRATORY: Airway patent, respirations nonlabored. Clear to auscultation bilaterally, no rales, rhonchi, wheezing. CARDIOVASCULAR: Regular rate and rhythm without murmurs rubs or gallops. ABDOMINAL: Normoactive bowel sounds, soft distended, patient does have an ileostomy bag in place, stoma looks more pink this morning continues to have liquid brown stool from ileostomy, bruising and ecchymosis noted periumbilical region. Firm and palpable hematoma. Ostomy nurse digitally probed to the opening of the loop ileostomy with no tightness or palpable stricturing past the stoma. MUSCULOSKELETAL: Moves all extremities. Strength/ROM intact, No edema, No calf tenderness. NEURO: Alert and oriented x3. Moves all extremities, nonfocal SKIN: postop bruising across abdomen DS: Data Data Completed and Pending Labs on day of discharge: Labs from last 24 hours 11/06/24 03:42 WBC 11.7 H RBC 3.25 L Hgb 9.1 L Hct 28.5 L MCV 87.7 MCH 28.0 MCHC 31.9 L RDW 13.6 Plt Count 322 MPV 9.2 Immature Gran % (Auto) 0.5 Neut % (Auto) 75.4 H Lymph % (Auto) 14.6 L [place] % (Auto) 6.6 Eos % (Auto) 2.6 Baso % (Auto) 0.3 Lymph # (Auto) 1.71 [place] # (Auto) 0.8 H Eos # (Auto) 0.3 Baso # (Auto) 0.0 Abs Immat Gran (auto) 0.06 H Absolute Neuts (auto) 8.9 H Absolute Nucleated RBC 0.000 Nucleated RBC % 0.0 Sodium 135 L Potassium 3.3 L Chloride 98 Carbon Dioxide 29 Anion Gap 8 BUN 16 Creatinine 0.53 L Estim Creat Clear Calc 82 Estimated GFR > 60 Glucose 179 H Calcium 8.4 Phosphorus 2.6 Magnesium 2.0 Total Bilirubin 1.3 AST 27 ALT 21 Alkaline Phosphatase 111 Total Protein 7.0 Albumin 3.3 L Preliminary micro results at discharge 11/03/24 10:37 Blood Culture - Preliminary Blood 11/03/24 10:25 Blood Culture - Preliminary Blood Procedures/Treatments: 11/05: EGD was performed showing no obvious structural issues with her esophagus causing her nausea Discharge Plan Discharge Attending physician on discharge: Sixto Page Consulting providers: Taz Otero; Ramos Capellan; Abdulaziz Buchanan Discharging Clinician: Sixto Page Patient Disposition: Home Health Service Activity: may shower Diet: other - see discharge instructions Wound Care Instructions: other - see discharge instructions Discharge Instructions: Per Care Coordination: [facility] will contact you prior to their first visit. [facility] will follow for RN and evaluate for PT/OT eval and treat. [facility] can be contacted at [phone]. Patient to follow-up see Dr. Otero in the office next week. Patient to call [phone] for an appointment Patient to concentrate on drinking enough fluid each day addition to drinking Ensure supplements and the eating foods that are high in protein. She should drink Pedialyte, Gatorade, or some drink that has electrolytes included. Patient should also eat foods that are high in potassium such as bananas. Patient Instructions: Antibiotic Form Patient Language: Japanese Stand Alone Forms: General Discharge Information Follow-up/Referrals: Abdulaziz Buchanan MD [Physician] - (Patient to contact Dr. Buchanna office to reschedule her oncology visit.) Taz Otero MD [Physician] - (Patient follow-up see Dr. Otero in 1 week. ) Discharge Medications: Discontinued losartan-hydrochlorothiazide 100-12.5 mg tablet 1 tablet PO DAILY No Action oxycodone-acetaminophen 7.5-325 mg tablet 1 tablet PO Q6H PRN (Reason: pain) 5 Days Qty: 20 0RF amlodipine 5 mg tablet 5 mg PO DAILY ezetimibe 10 mg tablet 10 mg PO DAILY metoprolol succinate 50 mg tablet extended release 24 hr 50 mg PO Q12H pravastatin 40 mg tablet 40 mg PO DAILY aspirin 81 mg tablet,chewable 81 mg PO DAILY Date of admission: 11/03/24 09:09 Primary Care Provider: SharonEmperatriz Admitting Provider: Jacob Hartley Attending physician on admission: Jacob Hartley Condition: Stable Care Plan Goals: Monitor blood pressures, ostomy output Health Concerns: Go to nearest ER if develops abdominal pain, low blood pressures or ostomy not working
== END 2024-11-06 15:29 | disposition home health service (06) | DRG 394 ==
LOC: ANHED 12:43 → ANHICU 13:23
PROVIDERS: Internal Medicine Gastroenterology; Student in an Organized Health Care Education/Training Program; Admitting Provider Internal Medicine; Emergency Provider Emergency Medicine; PCP Internal Medicine Gastroenterology; Visit Provider Internal Medicine
PROC: 0DJ08ZZ Inspection of Upper Intestinal Tract, Via Natural or Artificial Opening Endoscopic (ICD-10-PCS; principal; 2024-11-05 13:45)
DX: K94.19 Other complications of enterostomy (principal); C18.9 Malignant neoplasm of colon, unspecified; N17.9 Acute kidney failure, unspecified; C77.2 Secondary and unspecified malignant neoplasm of intra-abdominal lymph nodes; E87.1 Hypo-osmolality and hyponatremia; L76.32 Postprocedural hematoma of skin and subcutaneous tissue following other procedure; J98.11 Atelectasis; K52.9 Noninfective gastroenteritis and colitis, unspecified; E86.0 Dehydration; E78.5 Hyperlipidemia, unspecified; D72.829 Elevated white blood cell count, unspecified; R13.11 Dysphagia, oral phase; I10 Essential (primary) hypertension; J98.4 Other disorders of lung; K57.90 Diverticulosis of intestine, part unspecified, without perforation or abscess without bleeding; E66.9 Obesity, unspecified; Z68.36 Body mass index [BMI] 36.0-36.9, adult; Z85.41 Personal history of malignant neoplasm of cervix uteri; Z85.3 Personal history of malignant neoplasm of breast; Z90.710 Acquired absence of both cervix and uterus
CPT/HCPCS: 36415; 71045; 74177; 80053; 81001; 83605; 83690; 83735; 84100; 85025; 85610; 85730; 86140; 87040; 87637; 96361; 96365; 96375; 97161; 99285; A9270; J2003; J2405; J2470; J2543; J2704; J3475; J7030; J7040; J7120; Q9967

== ENCOUNTER 2024-11-18 11:29 | Inpatient (IN) | payer MEDICARE, SELFPAY ==
[2024-11-18] VITALS (10 sets, daily range): BP systolic 129–162; BP diastolic 48–85; PULSE 93–112; RESP 14–24; TEMP 36.3–36.7; O2SAT 93–100; BMI 36.6
--- NOTE | ~2024-11-18 | CT_ITS ---
EXAMINATION:CT diagnostic chest wo con DATE: 11/18/2024 14:55 INDICATION: Cough and fatigue. TECHNIQUE: Computed tomography (CT) of the chest was performed without intravenous contrast. Automate d exposure control and iterative reconstruction technique were employed. The dose-length product (DLP ) was 243.61 mGy-cm. COMPARISON: Chest CT 10/23/2024, 10/21/24 FINDINGS: There is mild atelectasis in the lungs. There is septal thickening in the lungs with a depe ndent predominance, consistent with mild pulmonary edema. No pleural effusion. The heart size is norm al. There are coronary artery calcifications. No pericardial effusion. There is a right subclavian po rt with tip in superior vena cava. There is a small sliding hiatal hernia. There are surgical changes in left breast. There is a gallstone in the gallbladder, which is distended. There is an 18 mm hypod ense mass in right hepatic lobe. There are nodules in the thyroid measuring up to 9 mm, likely not cl inically significant. There is mild mediastinal lymphadenopathy, likely reactive. There is a right alva bclavian port with tip in superior vena cava. There is mild thoracic spondylosis. IMPRESSION: 1. Mild pulmonary edema. 2. 18 mm liver mass suspicious for abscess or metastatic disease. 3. Cholelithiasis. Gallbladder distention may be secondary to fasting. 4. Mild mediastinal lymphadenopathy, likely reactive. Reviewed, dictated and finalized at location A. T TAXONOMIST
--- NOTE | ~2024-11-18 | MR_ITS ---
EXAMINATION: MR MRCP wo/w con/w 3D wo ind DATE: 11/19/2024 15:41 INDICATION: Colon cancer. Jaundice. Liver mass. TECHNIQUE: Magnetic resonance imaging (MRI) of the abdomen was performed without and with 18 mL Multi Jeremy intravenous contrast. Sequences included coronal T2-weighted FS FSE, coronal T2-weighted FSE, a xial T1-weighted LAVA, coronal FS FIESTA, axial dual-echo T1-weighted SPGR, coronal lava-FLEX, sagitt al T2-weighted FSE, axial T2-weighted FSE, and axial DWI. Thick-slab T2-weighted FSE images were obta ined for magnetic resonance cholangiopancreatography (MRCP). Maximum intensity projection 3-D reconst ructions of the volumetric data were created by the technologist. Postcontrast sequences included cor onal LAVA-flex and time course of axial T1-weighted LAVA. COMPARISON: CT abdomen and pelvis 11/03/2024, chest CT 11/18/24 FINDINGS: ABDOMEN MRI: There are approximately 7 masses in the liver measuring up to 15 mm. The gallbladder is distended and contains sludge and a stone. There is a small sliding hiatal hernia. The spleen, pancre as, adrenal glands, and kidneys are normal. There is wall thickening of the hepatic flexure of the [place] with surrounding fat stranding and peritoneal nodularity, consistent with primary malignancy and peritoneal carcinomatosis. There is an ostomy in right abdomen. There are no pathologically enlarged lymph nodes. There is no free intraperitoneal fluid. ABDOMEN MRCP: The common duct is normal and measures 6 mm. IMPRESSION: 1. Multiple liver masses, consistent with metastatic disease. 2. Wall thickening of the hepatic flexure of the colon with surrounding fat stranding and peritoneal nodularity, consistent with primary malignancy and peritoneal carcinomatosis. 3. Cholelithiasis. Gallbladder distention may be secondary to fasting or acute cholecystitis. If ther e is clinical concern for acute cholecystitis, consider hepatobiliary scintigraphy. Reviewed, dictated and finalized at location [] ERTY UTILIZATION OFFICER IMPRESSION: 1. Multiple liver masses, consistent with metastatic disease. 2. Wall thickening of the hepatic flexure of the colon with surrounding fat str anding and peritoneal nodularity, consistent with primary malignancy and perito [place] carcinomatosis. 3. Cholelithiasis. Gallbladder distention may be secondary to fasting or acute cholecystitis. If there is clinical concern for acute cholecystitis, consider h epatobiliary scintigraphy.
--- OUTSIDE RECORDS SUMMARY | 2024-11-18 13:39 | XMS_ITS | Clinical Summary ---
Author Organization [facility] Address [address] [place] [address] Care Team Providers Care Threading Machine Feeder Automatic Name Role Phone Richardson Correa Primary Care Provider + Richardson Correa Unavailable [phone] Aris Meyer MD Unavailable Ghanshyam Calixto DO Unavailable [phone] Domingo Bearden MD Unavailable [phone] Ebony Masters MD Unavailable [phone] Allergies No known active allergies Medications diclofenac [...] from 05/26/2021:Stage IB(cT2, cN0, cM0, G2, ER+, TN+, HER2-) - Signed by Ebony Masters MD on 08/31/2021 Pathologic stage from 09/26/2021:Stage IA(pT1b, pN0(sn), cM0, G2, ER+, TN+, HER2-) - Signed by Ebony Masters MD on 10/12/2021 Malignant neoplasm of upper- outer quadrant of left breast in female, estrogen receptor positive 08/10/2021 Immunizations Immunization Administration Dates Next Due Moderna SARS-CoV-2 Monovalen t Vaccination (12+ YRS) 07/18/2021,12/27/2020,11/30/2020 Pneumococcal Conjugate PCV 13 08/12/2021 Surgical History Surgery Date Site/Laterality Comments HYSTERECTOMY TN LIG/TRNSXJ FLP TUBE ABDL/VAG APPR UNI/BI Tubal Ligation - (Added by TW Conv) TN SALPINGO-OOPHORECTOMY COMPL/PRTL UNI/BI SPX Salpingo-oophorectomy Left Side - (Added by TW Conv) TN COLPOPEXY ABDOMINAL APPROACH Vaginal Surgery Colpopexy Abdominal [...] on file Legal Sex Female 7:22 AM CASE ADVOCATE Gender Identity Not on file Sexual Orientation [...] Pneumococcal vaccine 65+ (2 of 2 - PPSV23) 10/07/2021 08/12/2021 Covid-19 Vaccine (2023-2 5 season) 2024 06/05/2022, 06/05/2022, 07/18/2021, Additional history exists Influenza Vaccine (#1) 2024 , 07/05/2021, 07/12/2020, Additional history exists Breast Cancer Screening-Mammogram 06/05/2024 023 DTaP/Tdap/Td Vaccine (2 - Td or Tdap) 02/02/2026 02/03/2016 Insurance [employer]ICARE [employer]IONS [place] [id number] [employer] [place] [id number] Care Teams Threading Machine Feeder Automatic Relationship Specialty Start Date End Date Richardson Correa PA [address] [place] [id number] PCP - General Internal Medicine 08/31/21 Richardson Correa PA [address] [place] [address] 21931 Internal Medicine 08/31/21 Aris Meyer MD [address] [place] [address] Consulting Physician Cardiology 08/31/21 Ghanshyam Calixto DO [address] [id number] Medical Oncologist/Director Of Software Engineering Hematology and Oncology 08/31/21 Domingo Bearden MD [facility] [address] [place] [address] Surgeon General Surgery 08/31/21 Ebony Masters MD [address] [facility] [address] [place] [address] Radiation Oncologist Radiation Oncology 05/14/24
--- OUTSIDE RECORDS SUMMARY | 2024-11-18 13:39 | XMS_ITS | Clinical Summary ---
Author Organization [facility] Abisai antony [facility] Address [address] [facility] [place] [address] Care Team Providers Care Criminal Analyst Name Role Phone Unavailable Primary Care Provider Unavailabl e Social History Tobacco Use Types Packs/Day Years Used Date Smoking Tobacco: Never Assessed Comments Unknown Sex and Gender Information Value Date Recorded Sex Assigned at Not on file Legal Sex Female 12:29 PM OR MANAGER Gender Identity Not on file Sexual Orientation Not on file Plan of Treatment Upcoming Encounters Date Type Department Care Team (Late st Contact Info) Description 11/18/2024 4:00 PM OR MANAGER Office Visit [facility] Oncology and Hematology - [place] [address] [facility] [address] [place] [address] Abdulaziz Buchanan MD [address] [facility] [address] [place] [address] Health Maintenance Due Date Last [...]
--- OUTSIDE RECORDS SUMMARY | 2024-11-18 13:39 | XMS_ITS | Clinical Summary ---
Author Organization [facility] Address [address] [place] [address] Care Team Providers Care Unix Manager Name Role Phone Richardson Correa Primary Care Provider + Aris Meyer MD Unavailable [phone] Allergies No known active allergies Medications [...] Comments Blood Pressure 167/88 09/26/2021 4:12 PM FLUE GAS ANALYST Pulse 99 09/26/2021 4:12 PM FLUE GAS ANALYST Temperature 37 C (98.6 F) 09/26/2021 4:12 PM FLUE GAS ANALYST Respiratory Rate 20 09/26/2021 4:12 PM FLUE GAS ANALYST Oxygen Saturation 93% 09/26/2021 4:12 PM FLUE GAS ANALYST Inhaled Oxygen Concentration - - Weight 88.4 kg (194 lb 14.2 oz) 022 11:00 AM FLUE GAS ANALYST Height 154.9 cm (5' 1 ) 09/26/2021 11:0 0 AM FLUE GAS ANALYST Body Mass Index 36.82 09/26/2021 11:00 AM FLUE GAS ANALYST Plan of Treatment Health Maintenance Due Date [...] patient's age to complete this topic Insurance [facility] Care Teams Unix Manager Relationship Specialty Start Date End Date Richardson Correa PA PCP - General PHYSICIAN DRAFTING INSTRUCTOR 09/13/21 [place] [address] [place] [address] CARDIOVASCULAR DISEASE 09/13/21
--- OUTSIDE RECORDS SUMMARY | 2024-11-18 13:39 | XMS_ITS | Referral Summary ---
Author Organization [facility] Address [address] [place] [address] Care Team Providers Care Firer Locomotive Name Role Phone Richardson Correa Primary Care Provider + Richardson Correa Unavailable [phone] Aris Meyer MD Unavailable Ghanshyam Calixto DO Unavailable [phone] Domingo Bearden MD Unavailable [phone] Ebony Masters MD Unavailable [phone] Allergies No known active allergies Medications diclofenac [...] from 05/26/2021:Stage IB(cT2, cN0, cM0, G2, ER+, MO+, HER2-) - Signed by Ebony Masters MD on 08/31/2021 Pathologic stage from 09/26/2021:Stage IA(pT1b, pN0(sn), cM0, G2, ER+, MO+, HER2-) - Signed by Ebony Masters MD [...] on file Legal Sex Female 7:22 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 Gender Identity Not on file Sexual [...] Treatment Not on file Insurance MEDICARE [employer] [facility] MEDICARE Address: [facility] [address] [place] [address] MEDICARE [employer] [facility] MEDIC[facility] Address: [facility] [address] [place] [address] Care Teams Firer Locomotive Relationship Specialty Start Date End Date Richardson Correa PA [address] [place] [address] PCP - General Internal Medicine 08/31/21 Richardson Correa PA [address] [place] [address] Internal Medicine 08/31/21 Aris Meyer MD [address] [place] [address] Consulting Physician Cardiology 08/31/21 Ghanshyam Calixto DO [address] [place] [address] [id number] Medical Oncologist/Defect Repairer Glassware Hematology and Oncology 08/31/21 Domingo Bearden MD [address] [place] [address] [phone] Surgeon General Surgery 08/31/21 Ebony Masters MD [address] [place] [phone] Radiation Oncologist Radiation Oncology 05/14/24
--- OUTSIDE RECORDS SUMMARY | 2024-11-18 13:39 | XMS_ITS ---
Author Organization [facility] Address [address] [place] [address] Care Team Providers Care Photographic Technician Name Role Phone Richardson Correa Primary Care Provider + Richardson Correa Unavailable [phone] Aris Meyer MD Unavailable Ghanshyam Calixto DO Unavailable [phone] Domingo Bearden MD Unavailable [phone] Ebony Masters MD Unavailable [phone] Active Problems Problem Noted Date Diagnosed Date Personal history of radiation therapy 12/26/2021 Malignant neoplasm of upper- outer quadrant of left breast in female, estrogen receptor positive 08/31/2021 Cancer Staging:Clinical stage from 05/26/2021:Stage IB(cT2, cN0, cM0, G2, ER+, RI+, HER2-) - Signed by Ebony Masters MD on 08/31/2021 Pathologic stage from 09/26/2021:Stage IA(pT1b, pN0(sn), cM0, G2, ER+, RI+, HER2-) - Signed by Ebony Masters MD on 10/12/2021 Malignant neoplasm of upper- outer quadrant of left breast in female, estrogen receptor positive 08/10/2021 Current Treatment and Therapy Plans No current plan information found. Past Treatment and Therapy Plans No past plan information found. Radiation Treatments * Course [id number]/20/2021 - 11/15/2021 Treatment Period Energy Fraction Dose Fractions Total Dose Plans Planned PRNE_LT BRST 10/20/2021 - 11/15/2021 267 15 / ,005 Reference Points Delivered PRNE LT BREAST 10/20/2021 - 11/15/2021,005
--- OUTSIDE RECORDS SUMMARY | 2024-11-18 13:39 | XMS_ITS | Data Portability ---
Author Organization [facility] [place] Address [address] [facility] [place] [address] Care Team Providers Care Grease Monkey Name Role Phone EMPERATRIZ MEYER Primary Care Provider Assessment No assessment recorded. Plan of Treatment Reminders Order Date Submit Date Provider Last Modified By Organization Details Last Modified Time Details Appointments ANY 15 2024 09:00A M Emperatriz Meyer MD Not available Not available Not available Lab HbA1c (hemoglob in A1c), blood 2023 024 [facility], [address] [place] [address], [address], [place], [address], 07/08/2024 08:29:59 vitamin D, 25-hydrox y, total, serum 2023 024 [facility], [address] [place] [address], [address], [place], [address], 07/08/2024 08:30:00 CMP, serum or plasma 2023 024 [facility], [address] [place] [address], [address], [place], [address], 07/08/2024 08:29:58 lipid panel, serum 2023 024 [facility], [address] [place] [address], [address], [place], [address], 07/08/2024 08:29:56 vitamin D, 25-hydrox y, total, serum [address] [facility], [address], [address], [place], [address], 07/17/2023 08:26:35 CMP, serum or plasma 2022 023 [facility], [address], [address], [place], [address], 07/17/2023 06:15:55 lipid panel, serum [address] [facility], [address], [address], [place], [address], 07/17/2023 06:15:54 CBC 2022 023 [facility], [address], [address], [place], [address], 07/17/2023 06:15:56 TSH, ultra-sen sitive, serum [address] [facility] [address], [address], [place], [address], 07/17/2023 08:26:34 noninvasi ve colorecta l cancer DNA + occult blood screening , QL, stool 2022 023 [facility] (Cologuard Orders Only), [address], [address], [place], [address], 05/31/2023 03:58:30 rf (rheumato id factor), serum [address] [facility], [facility] [address], [address], [place], [address], 01/11/2023 09:16:24 C reactive protein, QN, serum or plasma 2022 023 [facility], [address], [address], [place], [address], 01/11/2023 09:16:25 erythrocy te sedimenta tion rate by lisa n method 2022 023 [facility], [address], [address], [place], [address], 01/11/2023 09:16:23 CBC 2022 023 [facility], [address], [address], [place], [address], 01/10/2023 03:39:55 lipid panel, serum 2022 023 [facility], [address], [address], [place], [address], 01/10/2023 03:39:56 vitamin D, 25-hydrox y, total, serum 2022 023 [facility], [address], [address], [place], [address], 01/11/2023 09:16:26 noninvasi ve colorecta l cancer DNA + occult blood screening , QL, stool 2022 023 [facility], [address], [address], [place], [address], 01/08/2023 11:03:49 CMP, serum or plasma 2022 023 [facility], [address], [address], [place], [address], 01/10/2023 03:39:56 Referral dermatolo gist referral 2023 024 [email or web address] Kirk Hardy MD ([facility], Dermatology), [address] [place], [address], 03/30/2024 01:42:29 Procedures None recorded. Surgeries None recorded. Imaging MAMMO, screening , digital, bilateral - Hx papillary carcinoma left breast [address] (Mammography) , [address], [place], [address], 10/17/2024 09:59:11 MAMMO, screening , bilateral 2022 023 [facility] (One Call Scheduling), [address] [place], [address], 06/05/2023 14:58:34 XR, wrist + hand 2022 023 [facility] (One Call Scheduling), [address] [place], [address], 01/11/2023 02:52:41 Medication Orders losartan 100 mg-hydroc hlorothia zide 12.5 mg tablet 2023 024 [facility]24503, [address] [place], [place], [id number], 07/07/2024 10:38:53 metoprolo l succinate ER 50 mg tablet,ex tended release 24 hr 2023 024 [facility] #59416, [address] [place], [place], [id number], 07/07/2024 10:38:53 amlodipin e 5 mg tablet 2023 024 [facility] #00174, [address] [place], [place], [id number], 07/07/2024 10:38:53 pravastat in 40 mg tablet 2023 024 [facility] #18609, [address] [place], [place], [id number], 07/07/2024 10:40:07 ezetimibe 10 mg tablet 2023 024 [facility] #51052, [address] [place], [place], [id number], 07/07/2024 10:38:52 potassium chloride ER 10 mEq tablet,ex tended release 2023 024 [facility] #11251, [address] [place], [place], [id number], 07/07/2024 10:38:53 losartan 100 mg-hydroc hlorothia zide 12.5 mg tablet 2022 023 [facility] #08733, [address] [place], [place], [id number], 07/10/2023 10:38:22 ibuprofen 600 mg tablet 2022 023 [facility] #83444, [address] [place], [place], [id number], 01/09/2024 09:52:03 losartan 50 mg-hydroc hlorothia zide 12.5 mg tablet 2022 023 [facility], [address] [place], [place], [id number], 01/09/2024 09:52:10 amlodipin e 5 mg tablet 2022 023 [facility], [address] [place], [place], [id number], 05/10/2023 10:36:53 Patient TargetsNo targets recorded. Patient Instructions Encounter Date Encounter Id Patient Instructions Last Modified By Organization Details Last Modified Time 01/08/2023 [id number] When You Want to Lose Weight: Care Instructions [email or web address] Not available 01/08/2023 11:03:30 A healthy lifestyle: care instructions [email or web address] Not available 01/08/2023 11:03:30 high cholesterol : care instructions [email or web address] Not available 01/08/2023 11:03:29 learning about high blood pressure [email or web address] Not available 01/08/2023 11:03:30 05/10/2023 [id number] When You Want to Lose Weight: Care Instructions [email or web address] Not available 05/10/2023 10:36:42 A healthy lifestyle: care instructions [email or web address] Not available 05/10/2023 10:36:41 learning about breast cancer screening Not available 05/10/2023 10:36:42 07/10/2023 [id number] back care and preventing injuries: care instructions [email or web address] Not available 07/10/2023 10:37:54 When You Want to Lose Weight: Care Instructions [email or web address] Not available 07/10/2023 10:37:54 A healthy lifestyle: care instructions Not available 07/10/2023 10:37:53 learning about high blood pressure Not available 07/10/2023 10:37:54 high cholesterol : care instructions [email or web address] Not available 07/10/2023 10:37:53 hypokalemia: car e instructions Not available 07/10/2023 10:37:54 01/09/2024 [id number] back care and preventing injuries: care instructions [email or web address] Not available 01/09/2024 10:35:11 When You Want to Lose Weight: Care Instructions Not available 01/09/2024 10:35:11 high cholesterol : care instructions [email or web address] Not available 01/09/2024 10:35:11 A healthy lifestyle: care instructions [email or web address] Not available 01/09/2024 10:35:11 learning about high blood pressure Not available 01/09/2024 10:35:11 hypokalemia: car e instructions [email or web address] Not available 01/09/2024 10:35:11 07/07/2024 [id number] learning about breast cancer screening [email or web address] Not available 07/07/2024 10:33:31 When You Want to Lose Weight: Care Instructions [email or web address] Not available 07/07/2024 10:33:31 A healthy lifestyle: care instructions [email or web address] Not available 07/07/2024 10:33:31 learning about high blood pressure [email or web address] Not available 07/07/2024 10:33:31 high cholesterol : care instructions Not available 07/07/2024 10:33:31 Reason for Referral Heading Pinner Referral for D isorder of skin Multiple skin lesions ears, chest Referring Physician: Emperatriz Meyer, Internal Medicine, Encounter Date: 01/09/2024 Results Created Date Observation Date Name Description Value Unit Range Abnormal Flag Note LastModifiedBy Organization Detail LastModifiedTime 01/10/2001/09/2023 LIPID PANEL cholesterol, total 130.6 mg/dL 140.0- 200.0 below low normal Not Available [facility] Department [address] [place] [address], [address], 01/09/2023 19:09:16 01/10/2001/09/2023 LIPID PANEL triglyceride s 120 mg/dL <=150 Not Available [facility] Department [address] [place], [address], 01/09/2023 19:09:16 01/10/2001/09/2023 LIPID PANEL HDL cholesterol 41.1 mg/dL 40.0-1 00.0 Not Available [facility] Department [address] [place], [address], 01/09/2023 19:09:16 01/10/2001/09/2023 LIPID PANEL VLDL cholesterol [place] 24.00 mg/dL 5.00-4 0.00 Not Available [facility] Department [address] [place], [address], 01/09/2023 19:09:16 01/10/20 23 01/09/2023 LIPID PANEL LDL chol calc ([facility]) 67.9 Not Available [facility] Department [address] [place], [address], 01/09/2023 19:09:16 01/10/20 23 01/09/2023 COMP. METAB OLIC PANEL (14) glucose 98 mg/dL 65-99 ANION GP 20.0 mmol/ L N OSMOL 286.0 mOsM/ L N REFER ENCE RANGE : 275.0 -301. 0 Not Available [facility] Department [address] [place], [address], 01/09/2023 19:09:16 01/10/20 23 01/09/2023 COMP. METAB OLIC PANEL (14) BUN 15 mg/dL 8-26 Not Available [facility] Department [address] [place], [address], 01/09/2023 19:09:16 01/10/20 23 01/09/2023 COMP. METAB OLIC PANEL (14) creatinine 0.59 mg/dL 0.50-1 .40 Not Available [facility] Department [address] [place], [address], 01/09/2023 19:09:16 01/10/20 23 01/09/2023 COMP. METAB OLIC PANEL (14) eGFR 99 mL/mi n/1.7 3 >=60 Not Available [facility] Department [address] [place], [address], 01/09/2023 19:09:16 01/10/20 23 01/09/2023 COMP. METAB OLIC PANEL (14) BUN/creatini ne ratio 25.9 Not Available [facility] Department [address] [place], [address], 01/09/2023 19:09:16 01/10/20 23 01/09/2023 COMP. METAB OLIC PANEL (14) sodium 143.0 mmol/ L 136.0- 144.0 Not Available [facility] Department [address] [place], [address], 01/09/2023 19:09:16 01/10/20 23 01/09/2023 COMP. METAB OLIC PANEL (14) potassium 3.8 mmol/ L 3.5-5. 3 Not Available [facility] Department [address] [place], [address], 01/09/2023 19:09:16 01/10/20 23 01/09/2023 COMP. METAB OLIC PANEL (14) chloride 102 mmol/ l 101-11 1 Not Available [facility] Department [address] [place], [address], 01/09/2023 19:09:16 01/10/20 23 01/09/2023 COMP. METAB OLIC PANEL (14) carbon dioxide, total 24.3 mmol/ L 21.0-3 2.0 Not Available [facility] Department [address] [place], [address], 01/09/2023 19:09:16 01/10/20 23 01/09/2023 COMP. METAB OLIC PANEL (14) calcium 10.2 mg/dL 8.2-10 .0 above high normal Not Available [facility] Department [address] [place], [address], 01/09/2023 19:09:16 01/10/20 23 01/09/2023 COMP. METAB OLIC PANEL (14) protein, total 6.8 g/dL 6.7-8. 2 Not Available [facility] Department [address] [place], [address], 01/09/2023 19:09:16 01/10/20 23 01/09/2023 COMP. METAB OLIC PANEL (14) albumin 4.5 g/dL 3.5-5. 5 Not Available [facility] Department [address] [place], [address], 01/09/2023 19:09:16 01/10/20 23 01/09/2023 COMP. METAB OLIC PANEL (14) globulin, total 2.3 g/dL 1.5-4. 5 Not Available [facility] Department [address] [place], [address], 01/09/2023 19:09:16 01/10/20 23 01/09/2023 COMP. METAB OLIC PANEL (14) A/G ratio 2.0 Not Available [facility] Department [address] [place], [address], 01/09/2023 19:09:16 01/10/20 23 01/09/2023 COMP. METAB OLIC PANEL (14) bilirubin, total 1.0 mg/dL 0.0-1. 2 Not Available [facility] Department [address] [place], [address], 01/09/2023 19:09:16 01/10/20 23 01/09/2023 COMP. METAB OLIC PANEL (14) alkaline phosphatase 133.4 IU/L 42.0-1 21.0 above high normal Not Available [facility] Department [address] [place], [address], 01/09/2023 19:09:16 01/10/20 23 01/09/2023 COMP. METAB OLIC PANEL (14) AST (SGOT) 22.3 U/L 10.0-4 2.0 Not Available [facility] Department [address] [place], [address], 01/09/2023 19:09:16 01/10/20 23 01/09/2023 COMP. METAB OLIC PANEL (14) ALT (SGPT) 27.5 U/L 10.0-6 0.0 Not Available [facility] Department [address] [place], [address], 01/09/2023 19:09:16 01/10/20 23 01/09/2023 CBC, PLATE LET, NO DIFFE RENTI AL WBC 7.7 K/uL 3.4-10 .8 Not Available [facility] Department [address] [place], [address], 01/09/2023 19:09:17 01/10/20 23 01/09/2023 CBC, PLATE LET, NO DIFFE RENTI AL RBC 4.7 M/uL 4.2-5. 4 Not Available [facility] Department [address] [place], [address], 01/09/2023 19:09:17 01/10/2001/09/2023 CBC, PLATE LET, NO DIFFE RENTI AL hemoglobin 13.7 g/dL 11.5-1 5.5 Not Available [facility] Department [address] [place], [address], 01/09/2023 19:09:17 01/10/2001/09/2023 CBC, PLATE LET, NO DIFFE RENTI AL hematocrit 41.6 % 36.0-4 8.0 Not Available [facility] Department [address] [place], [address], 01/09/2023 19:09:17 01/10/2001/09/2023 CBC, PLATE LET, NO DIFFE RENTI AL MCV 89 fL 80-95 Not Available [facility] Department [address] [place], [address], 01/09/2023 19:09:17 01/10/20 23 01/09/2023 CBC, PLATE LET, NO DIFFE RENTI AL MCH 29 pg 27-32 Not Available [facility] Department [address] [place], [address], 01/09/2023 19:09:17 01/10/2001/09/2023 CBC, PLATE LET, NO DIFFE RENTI AL MCHC 33 g/dL 32-36 Not Available [facility] Department [address] [place], [address], 01/09/2023 19:09:17 01/10/20 23 01/09/2023 CBC, PLATE LET, NO DIFFE RENTI AL RDW 12.1 % 11.5-1 4.5 Not Available [facility] Department [address] [place], [address], 01/09/2023 19:09:17 01/10/20 23 01/09/2023 CBC, PLATE LET, NO DIFFE RENTI AL platelets 173 K/uL 155-37 9 MPV 10.5 FL 8.9-1 2.7 N Not Available [facility] Department [address] [place], [address], 01/09/2023 19:09:17 01/10/20 23 01/09/2023 CBC, PLATE LET, NO DIFFE RENTI AL NRBC 0 % Not Available [facility] Department [address] [facility], [place], [address], 01/09/2023 19:09:17 01/10/20 23 01/11/2023 SEDIM ENTAT ION RATE- WESTE RGREN sedimentatio n rate-westerg jumana 12 mm/HR 0-40 Not Available [facility] ([facility]) [address] [place], [address], 01/11/2023 09:16:23 01/10/20 23 01/10/2023 RHEUM ATOID FACTO R (RF) rheumatoid factor (rf) <10.0 IU/mL <14.0 Not Available [facility] ([facility]) [address] [place], [address], 01/11/2023 09:16:24 01/10/2001/10/2023 C-ESTEFANI CTIVE PROTE IN, QUANT C-reactive protein, quant 6 mg/L 0-10 Not Available [facility] ([facility]) [address] [place], [address], 01/11/2023 09:16:25 01/10/20 23 01/10/2023 VITAM IN [...] Florencio sahu DC: The Natio nal [facility] . 2. Arielle sharif MF, Olga pena [place], Fletcher off-F caroline i DUMONT, et al. Evalu ation , treat ment, and preve ntion of vitam in D defic iency : an Endoc rine Socie ty clini [place] pract ice guide line. JCEM. 2010; 96(7) :1911 -30. Not Available [facility] ([facility]) [address] [place], [address], 01/11/2023 09:16:26 01/11/20 23 01/11/2023 OCCUL T BLOOD , FECAL , IA occult blood, fecal, ia Negati ve negati ve Not Available [facility] ([facility]) [address] [place], [address], 01/11/2023 15:10:31 05/22/20 23 05/22/2023 COLOG UARD [...] is negat redd. TEST DESCR IPTIO N: [place] site algor ithmi c julio sis of [...] years or older , who are at [facility] for color ectal cance r (CRC) . Colog uard has been appro yao for use by the [place] FDA. The perfo rmanc e of Colog uard was estab lishe d in a cross secti onal study of [facility] adult s aged 50-84 . Colog uard [...] of 10,00 0 indiv idual s at [facility] risk for color ectal cance r [...] at www.c domingo robert.c om. Not Available [facility] (Cologuard Orders Only) [address], [place], [address], 05/31/2023 03:58:30 07/16/2007/16/2023 LIPID PANEL cholesterol, total 128 mg/dL 100-19 9 Not Available [facility] Department [address] [place], [address], 07/17/2023 06:15:54 07/16/2007/16/2023 LIPID PANEL triglyceride s 123 mg/dL 0-149 Not Available [facility] Department [address] [place], [address], 07/17/2023 06:15:54 07/16/2007/16/2023 LIPID PANEL HDL cholesterol 42 mg/dL 40-999 Not Available [facility] Department [address] [place], [address], 07/17/2023 06:15:54 07/16/2007/16/2023 LIPID PANEL VLDL cholesterol [place] 25 mg/dL 5-40 Not Available [facility] Department [address] [place], [address], 07/17/2023 06:15:54 07/16/2007/16/2023 LIPID PANEL LDL chol calc ([facility]) 79 mg/dL 0-99 Not Available [facility] Department [address] [place], [address], 07/17/2023 06:15:54 07/16/2007/16/2023 COMP. METAB OLIC PANEL (14) glucose 94 mg/dL 70-99 Not Available [facility] Department [address] [place], [address], 07/17/2023 06:15:55 07/16/2007/16/2023 COMP. METAB OLIC PANEL (14) BUN 18 mg/dL 8-27 Not Available [facility] Department [address] [place], [address], 07/17/2023 06:15:55 07/16/2007/16/2023 COMP. METAB OLIC PANEL (14) creatinine 0.52 mg/dL 0.76-1 .27 below low normal Not Available [facility] Department [address] [place] [address], [address], 07/17/2023 06:15:55 07/16/2007/16/2023 COMP. METAB OLIC PANEL (14) eGFR 102 >=60 Units for eGFR value s are mL/mi n/1.7 3 The eGFR Calcu latio n has not been valid ated for patie nts under the age of 18. If test resul ts are displ ayed for a patie nt under the age of 18, disre liborio that value . Not Available [facility] Department [address] [place], [address], 07/17/2023 06:15:55 07/16/2007/16/2023 COMP. METAB OLIC PANEL (14) BUN/creatini ne ratio 35 10-28 above high normal Not Available [facility] Department [address] [place], [address], 07/17/2023 06:15:55 07/16/2007/16/2023 COMP. METAB OLIC PANEL (14) sodium 143 mmol/ L 134-14 4 Not Available [facility] Department [address] [place], [address], 07/17/2023 06:15:55 07/16/2007/16/2023 COMP. METAB OLIC PANEL (14) potassium 3.3 mmol/ L 3.5-5. 2 below low normal Not Available [facility] Department [address] [place] [address], [address], 07/17/2023 06:15:55 07/16/2007/16/2023 COMP. METAB OLIC PANEL (14) chloride 101 mmol/ L 96-106 Not Available [facility] Department [address] [place] [address], [address], 07/17/2023 06:15:55 07/16/2007/16/2023 COMP. METAB OLIC PANEL (14) carbon dioxide, total 27 mmol/ L 20-29 Not Available [facility] Department [address] [place] [address], [address], 07/17/2023 06:15:55 07/16/2007/16/2023 COMP. METAB OLIC PANEL (14) calcium 9.2 mg/dL 8.7-10 .3 Not Available [facility] Department [address] [place] [address], [address], 07/17/2023 06:15:55 07/16/2007/16/2023 COMP. METAB OLIC PANEL (14) protein, total 6.7 g/dL 6.0-8. 5 Not Available [facility] Department [address] [place] [address], [address], 07/17/2023 06:15:55 07/16/2007/16/2023 COMP. METAB OLIC PANEL (14) albumin 4.3 g/dL 3.8-4. 8 Not Available [facility] Department [address] [place] [address], [address], 07/17/2023 06:15:55 07/16/2007/16/2023 COMP. METAB OLIC PANEL (14) globulin, total 2.4 g/dL 1.5-4. 5 Not Available [facility] Department [address] [place], [address], 07/17/2023 06:15:55 07/16/2007/16/2023 COMP. METAB OLIC PANEL (14) A/G ratio 1.8 1.2-2. 2 Not Available [facility] Department [address] [place], [address], 07/17/2023 06:15:55 07/16/2007/16/2023 COMP. METAB OLIC PANEL (14) bilirubin, total 0.8 mg/dL 0.0-1. 2 Not Available [facility] Department [address] [place], [address], 07/17/2023 06:15:55 07/16/2007/16/2023 COMP. METAB OLIC PANEL (14) alkaline phosphatase 129 IU/L 44-121 above high normal Not Available [facility] Department [address] [place], [address], 07/17/2023 06:15:55 07/16/2007/16/2023 COMP. METAB OLIC PANEL (14) AST (SGOT) 21 IU/L 0-40 Not Available [facility] Department [address] [place] [address], [address], 07/17/2023 06:15:55 07/16/2007/16/2023 COMP. METAB OLIC PANEL (14) ALT (SGPT) 29 IU/L 0-32 Not Available [facility] Department [address] [place], [address], 07/17/2023 06:15:55 07/16/2007/16/2023 CBC, PLATE LET, NO DIFFE RENTI AL WBC 7.5 x10e3 /uL 3.4-10 .8 Not Available [facility] Department [address] [place] [address], [address], 07/17/2023 06:15:56 07/16/2007/16/2023 CBC, PLATE LET, NO DIFFE RENTI AL RBC 4.66 x10e6 /uL 3.77-5 .28 Not Available [facility] Department [address] [place], [address], 07/17/2023 06:15:56 07/16/2007/16/2023 CBC, PLATE LET, NO DIFFE RENTI AL hemoglobin 13.4 g/dL 11.1-1 5.9 Not Available [facility] Department [address] [place], [address], 07/17/2023 06:15:56 07/16/2007/16/2023 CBC, PLATE LET, NO DIFFE RENTI AL hematocrit 41.7 % 34.0-4 6.6 Not Available [facility] Department [address] [place], [address], 07/17/2023 06:15:56 07/16/2007/16/2023 CBC, PLATE LET, NO DIFFE RENTI AL MCV 90 fL 79-97 Not Available [facility] Department [address] [place], [address], 07/17/2023 06:15:56 07/16/2007/16/2023 CBC, PLATE LET, NO DIFFE RENTI AL MCH 28.8 pg 26.6-3 3.0 Not Available [facility] Department [address] [place], [address], 07/17/2023 06:15:56 07/16/2007/16/2023 CBC, PLATE LET, NO DIFFE RENTI AL MCHC 32.1 g/dL 31.5-3 5.7 Not Available [facility] Department [address] [place], [address], 07/17/2023 06:15:56 07/16/2007/16/2023 CBC, PLATE LET, NO DIFFE RENTI AL RDW 12.7 % 11.5-1 4.5 Not Available [facility] Department [address] [place], [address], 07/17/2023 06:15:56 07/16/2007/16/2023 CBC, PLATE LET, NO DIFFE RENTI AL platelets 194 x10e3 /uL 150-45 0 Mean Plate let Volum e 10.6 fL 8.9-1 2.7 N Not Available [facility] Department [address] [place], [address], 07/17/2023 06:15:56 07/16/2007/16/2023 CBC, PLATE LET, NO DIFFE RENTI AL NRBC 0 % 0-0 Not Available [facility] Department [address] [place], [address], 07/17/2023 06:15:56 07/16/2007/17/2023 TSH TSH 2.340 uIU/m L 0.450- 4.500 Not Available [facility] ([facility]) [address] [facility], [place], [address], 07/17/2023 08:26:34 07/16/2007/17/2023 VITAM IN D, 25-HY [...] and D. Florencio sahu DC: The Natio [facility] . 2. Arielle sharif MF, Olga pena [place], Fletcher off-F errar i DUMONT, et al. Evalu ation , treat ment, and preve ntion of vitam in D defic iency : an Endoc rine Socie ty clini [place] pract ice guide line. JCEM. 2010; 96(7) :1911 -30. Not Available [facility] ([facility]) [address] [facility], [place], [address], 07/17/2023 08:26:35 07/07/2007/08/2024 LIPID PANEL cholesterol, total 136 mg/dL 100-19 9 Not Available [facility] ([facility]) [address] [place], [address], 07/08/2024 08:29:56 07/07/2007/08/2024 LIPID PANEL triglyceride s 162 mg/dL 0-149 above high normal Not Available [facility] ([facility]) [address] [place], [address], 07/08/2024 08:29:56 07/07/2007/08/2024 LIPID PANEL HDL cholesterol 40 mg/dL >39 Not Available [facility] ([facility]) [address] [facility], [place], [address], 07/08/2024 08:29:56 07/07/2007/08/2024 LIPID PANEL VLDL cholesterol [place] 28 mg/dL 5-40 Not Available [facility] ([facility]) [address] [place], [address], 07/08/2024 08:29:56 07/07/2007/08/2024 LIPID PANEL LDL chol calc ([facility]) 68 mg/dL 0-99 Not Available [facility] ([facility]) [address] [place], [address], 07/08/2024 08:29:56 07/07/2007/08/2024 COMP. METAB OLIC PANEL (14) glucose 102 mg/dL 70-99 above high normal Not Available [facility] ([facility]) [address] [facility] [place], [address], 07/08/2024 08:29:58 07/07/2007/08/2024 COMP. METAB OLIC PANEL (14) BUN 16 mg/dL 8-27 Not Available [facility] ([facility]) [address] [facility] [place], [address], 07/08/2024 08:29:58 07/07/2007/08/2024 COMP. METAB OLIC PANEL (14) creatinine 0.76 mg/dL 0.57-1 .00 Not Available [facility] ([facility]) [address] [facility] [place], [address], 07/08/2024 08:29:58 07/07/2007/08/2024 COMP. METAB OLIC PANEL (14) eGFR 85 mL/mi n/1.7 3 >59 Not Available [facility] ([facility]) [address] [facility], [place], [address], 07/08/2024 08:29:58 07/07/2007/08/2024 COMP. METAB OLIC PANEL (14) BUN/creatini ne ratio 21 12-28 Not Available [facility] ([facility]) [address] [facility] [place], [address], 07/08/2024 08:29:58 07/07/2007/08/2024 COMP. METAB OLIC PANEL (14) sodium 139 mmol/ L 134-14 4 Not Available [facility] ([facility]) [address] [facility] [place], [address], 07/08/2024 08:29:58 07/07/2007/08/2024 COMP. METAB OLIC PANEL (14) potassium 3.8 mmol/ L 3.5-5. 2 Not Available [facility] ([facility]) [address] [facility] [place], [address], 07/08/2024 08:29:58 07/07/20 24 07/08/2024 COMP. METAB OLIC PANEL (14) chloride 98 mmol/ L 96-106 Not Available [facility] ([facility]) [address] [facility], [place], [address], 07/08/2024 08:29:58 07/07/20 24 07/08/2024 COMP. METAB OLIC PANEL (14) carbon dioxide, total 25 mmol/ L 20-29 Not Available [facility] ([facility]) [address] [facility], [place], [address], 07/08/2024 08:29:58 07/07/2007/08/2024 COMP. METAB OLIC PANEL (14) calcium 9.7 mg/dL 8.7-10 .3 Not Available [facility] ([facility]) [address] [facility], [place], [address], 07/08/2024 08:29:58 07/07/2007/08/2024 COMP. METAB OLIC PANEL (14) protein, total 7.1 g/dL 6.0-8. 5 Not Available [facility] ([facility]) [address] [facility], [place], [address], 07/08/2024 08:29:58 07/07/2007/08/2024 COMP. METAB OLIC PANEL (14) albumin 4.4 g/dL 3.9-4. 9 Not Available [facility] ([facility]) [address] [facility], [place], [address], 07/08/2024 08:29:58 07/07/2007/08/2024 COMP. METAB OLIC PANEL (14) globulin, total 2.7 g/dL 1.5-4. 5 Not Available [facility] ([facility]) [address] [facility], [place], [address], 07/08/2024 08:29:58 07/07/2007/08/2024 COMP. METAB OLIC PANEL (14) bilirubin, total 0.8 mg/dL 0.0-1. 2 Not Available [facility] ([facility]) [address] [place], [address], 07/08/2024 08:29:58 07/07/20 24 07/08/2024 COMP. METAB OLIC PANEL (14) alkaline phosphatase 108 IU/L 44-121 Not Available [facility] ([facility]) [address] [place], [address], 07/08/2024 08:29:58 07/07/2007/08/2024 COMP. METAB OLIC PANEL (14) AST (SGOT) 23 IU/L 0-40 Not Available [facility] ([facility]) [address] [place], [address], 07/08/2024 08:29:58 07/07/20 24 07/08/2024 COMP. METAB OLIC PANEL (14) ALT (SGPT) 19 IU/L 0-32 Not Available [facility] ([facility]) [address] [place], [address], 07/08/2024 08:29:58 07/07/2007/08/2024 HEMOG LOBIN A1C hemoglobin A1C 6.2 % 4.8-5. 6 above high normal Predi abete s: 5.7 - 6.4 Diabe mesfin: >6.4 Glyce leona contr ol for adult s with diabe mesfin: <7.0 Not Available [facility] ([facility]) [address] [place], [address], 07/08/2024 08:29:59 07/07/2007/08/2024 VITAM IN D, 25-HY [...] um and D. Florencio sahu DC: The [facility] Press . 2. Arielle sharif MF, Olga pena [place], Bisch off-F errclaude i DUMONT, et al. Evalu ation , treat ment, and preve ntion of vitam in D defic iency : an Endoc rine Socie ty clini [place] pract ice guide line. JCEM. 2010; 96(7) :1911 -30. Not Available [facility] ([facility]) [address] [facility], [place], [address], 07/08/2024 08:30:00 10/07/1910/07/2024 urina lysis , dipst [...] 10/07/2024 urina lysis , dipst ick Specific Patterson 1.020 Not Available In-Off ice Order Internal [...] + hand No observ ation record ed. [address] [place], [address], 01/24/2023 14:16:12 03/09/20 23 03/09/2023 CT, abdom en + pelvi s, w/o contr ast No observ ation record ed. [address], [place], [address], 03/13/2023 16:43:45 06/05/20 23 06/05/2023 MAMMO , scree ana, bilat eral No observ ation record ed. [facility] [address] [place], [address], 06/27/2023 12:53:30 07/03/2007/03/2023 US, breas t, unila teral No observ ation record ed. [facility] [address] [place], [address], 07/05/2023 09:20:36 07/03/2007/03/2023 MAMMO , diagn ostic , unila teral No observ ation record ed. [address] ([employer]) [address] [place], [address], 07/03/2023 14:20:42 10/15/19 25 10/15/2024 CT, abdom en + pelvi s, w/ contr ast No observ ation record ed. [address] [id number], [place], [address], 10/16/2024 12:21:18 10/17/19 25 10/17/2024 US, abdom en No observ ation record ed. [address] [address], [place], [address], 10/20/2024 12:22:07 10/21/19 25 10/21/2024 US, ascencion x, gypsy s, lower extre mity No observ ation record ed. [address] [address], [place], [address], 10/22/2024 10:17:52 10/21/19 25 10/21/2024 CT, abdom en + pelvi s, w/ contr ast No observ ation record ed. [address] [address], [place], [address], 10/22/2024 10:38:39 10/23/19 25 10/23/2024 CT, chest , w/ contr ast No observ ation record ed. [address] [address], [place], [address], 10/25/2024 16:48:20 10/23/19 25 10/23/2024 CT, abdom en + pelvi s, w/ contr ast No observ ation record ed. [address] [address], [place], [address], 10/25/2024 16:48:20 10/24/19 25 10/24/2024 US, abdom en, limit ed No observ ation record ed. [address] [address], [place], [address], 10/28/2024 23:22:35 10/27/19 25 10/27/2024 XR, chest No observ ation record ed. [address] [address], [place], [address], 10/29/2024 10:02:07 10/27/19 25 10/27/2024 fluor oscop y (PROC ) No observ ation record ed. [address] [address], [place], [address], 10/29/2024 10:02:33 11/03/19 25 11/03/2024 CT, abdom en + pelvi s, w/ contr ast No observ ation record ed. [address] [address], [place], [address], 11/11/2024 12:28:21 11/04/19 25 11/04/2024 XR, chest No observ ation record ed. [address] [address], [place], [address], 11/11/2024 12:28:48 Result Notes None recorded. Problems Name Problem SNOMED Code Status Onset Date Resolution Date Notes Provider Name and Address Organization Details Recorded Time Low back pain 259599027 Active 2017 Not Available [facility] 2 06:06:52 Dysuria 31074663 Active 2017 Not Available [facility] 2 06:06:52 Hypokale shana 16899759 Active 2018 Not Available [facility] 2 06:06:52 Administ ration of influenz a vaccine Active 2018 Not Available [facility] 2 06:06:52 Normal grief reaction 235364229 Active 2019 Not Available [facility] 2 06:06:52 High hemoglob in A1c level 904705474 Active 2019 Not Available [facility] 2 06:06:52 Injury of ribs 644619367 Active 2020 right Not Available [facility] 2 06:06:52 Cardiome mahendra 6155057 Active 2020 Not Available [facility] 2 06:06:52 Screenin g for malignan t neoplasm of breast Active 2020 Not Available [facility] 2 06:06:52 Mammogra phy abnormal 537002851 Active 2020 Not Available [facility] 2 06:06:52 Cervical spondylo sis 527140379 Active 2020 see XR cervical spine 05/27/2021 Not Available [facility] 2 06:06:52 Ultrason ography of breast abnormal 76273939108 041888 Active 2020 Not Available [facility] 2 06:06:52 Administ ration of pneumoco ccal vaccine Active 2020 Not Available [facility] 2 06:06:52 Menopaus e present 892862845 Active 2020 Not Available [facility] 2 06:06:52 HIV screenin g Active 2021 Richardson Correa PA-C Attn: Accounting ,[address] [facility], [place], [address] , [place] [facility] 2 10:01:15 Pharyngi tis 509424494 Active 2021 Richardson Correa PA-C Attn: Accounting ,[address] [facility], [place], [address] , [place] [facility] 2 10:46:21 Cough 57590842 Active 2021 Emperatriz Meyer MD Attn: Accounting ,[address] [facility], [place], [address] , [place] [facility] 2 17:15:56 Morbid obesity 372750480 Active 2022 Emperatriz Meyer MD Attn: Accounting ,[address] [facility], [place], [address] , [place] [facility] 3 10:57:52 Finger joint stiff 323357030 Active 2022 Emperatriz Meyer MD Attn: Accounting ,[address] [facility], [place], [address] , [place] [facility] 3 10:59:17 Pain of bilatera l hands 52977984378 586530 Active 2022 Emperatriz Meyer MD Attn: Accounting ,[address] [facility], [place], [address] , [place] [facility] 3 10:39:02 History of polyp of colon 409357403 Active 2023 Emperatriz Meyer MD Attn: Accounting ,[address] [facility], [place], [address] , [place] [facility] 4 10:34:33 Disorder of skin 22283251 Active 2023 Emperatriz Meyer MD Attn: Accounting ,[address] [facility], [place], [address] , [place] - [facility] 4 10:36:51 Carcinom a of breast 804612648 Active 2023 Papillar y carcinom a 2020 Emperatriz Meyer MD Attn: Accounting ,[address] [facility], [place], [address] , [place] - [facility] 4 10:28:22 Disorder of left ear 54320537352 89731 Active 2023 Emperatriz Meyer MD Attn: Accounting ,[address] [facility], [place], [address] , [place] - [facility] 4 10:31:36 Urinary tract infectio us disease 30619211 Active 2024 Emperatriz Meyer MD Attn: Accounting ,[address] [facility], [place], [address] , [facility] - [facility] 5 15:39:12 [facility] hyperten alex 50284407 Active Not Available [facility] 2 06:06:52 Hyperlip idemia 97768480 Active Not Available [facility] 2 06:06:52 Follicul itis 12690265 Active Not Available [facility] 2 06:06:52 Acute labyrint hitis 91431624773 4103 Active Not Available [facility] 2 06:06:52 Obesity 797461661 Completed 01/08/2023 Emperatriz Meyer MD Attn: Accounting ,[address] [facility], [place], [address] , [facility] - [facility] 3 10:57:41 Screenin g for malignan t neoplasm of colon Active 2016 Not Available [facility] 2 06:06:52 Vitamin D deficien cy 92454927 Active 2016 Not Available [facility] 2 06:06:52 Notes:prolapsed bowel in 200 7.... pinned to spine Problem Notes None recorded. Procedures Surgical History Date Name Laterality Status Provider Name and Address Organization Details Recorded Time 09/26/19 22 lumpectomy of breast completed Yenny Jackson [place] - [facility] 04/04/2022 09:43:11 09/24/19 16 Most Recent Mammogram completed Danish Cortez [facility] 06/19/2019 10:20:56 09/24/19 07 operation on intestine completed Danish Cortez [facility] 06/19/2019 10:24:51 09/24/18 88 Hysterectomy completed Danish Dana [facility] 06/19/2019 10:23:01 Imaging Results Imaging Date Name Status LastModified by Organiz ation Details LastModified Time 01/10/2023 XR, wrist + hand completed [address] [place], [address], 01/24/2023 14:16:12 03/09/2023 CT, abdomen + pelvis, w/o contrast completed [address], [address], 03/13/2023 16:43:45 06/05/2023 MAMMO, screening, bilateral completed [facility] [address] [place], [address], 06/27/2023 12:53:30 07/03/2023 US, breast, unilateral completed [facility] [address] [place], [address], 07/05/2023 09:20:36 07/03/2023 MAMMO, diagnostic, unilateral completed [address] ([employer]) [address] [place], [address], 07/03/2023 14:20:42 10/15/2024 CT, abdomen + pelvis, w/ contrast completed [address], [address], 10/16/2024 12:21:18 10/17/2024 US, abdomen completed [address], [address], 10/20/2024 12:22:07 10/21/2024 US, duplex, venous, lower extremity completed [address] [address], [place], [address], 10/22/2024 10:17:52 10/21/2024 CT, abdomen + pelvis, w/ contrast completed [address], [address], 10/22/2024 10:38:39 10/23/2024 CT, chest, w/ contrast completed [address] [address], [place], [address], 10/25/2024 16:48:20 10/23/2024 CT, abdomen + pelvis, w/ contrast completed [address], [address], 10/25/2024 16:48:20 10/24/2024 US, abdomen, limited completed [address], [address], 10/28/2024 23:22:35 10/27/2024 XR, chest completed [address], [address], 10/29/2024 10:02:07 10/27/2024 fluoroscopy (PROC) completed [address], [address], 10/29/2024 10:02:33 11/03/2024 CT, abdomen + pelvis, w/ contrast completed [address], [address], 11/11/2024 12:28:21 11/04/2024 XR, chest completed [address], [address], 11/11/2024 12:28:48 Procedure Notes None recorded. Medical Equipment None [...] Updated DateTime 3 156.21 cm 37.4 kg/m2 31067.0 7 g 98.1 [degF] 89 /min 96 % 96 % 142 mm[Hg] 82 mm[Hg] Dalia Ellis [place] - [facility] 3 10:37:28 Date Recorded Body height Body mass index (BMI) Body weight Heart rate Oxygen saturation Oxygen saturation in Arterial blood by Pulse oximetry Systolic blood pressure Diastolic blood pressure Provider Name and Address Organization Details Last Updated DateTime 3 156.21 cm 37.2 kg/m2 00688.4 7 g 91 /min 94 % 94 % 150 mm[Hg] 85 mm[Hg] Madelyn Hong [place] - [facility] 3 10:11:49 Date Recorded Body height Body mass index (BMI) Body weight Heart rate Body temperature Oxygen saturation Oxygen saturation in Arterial blood by Pulse oximetry Systolic blood pressure Diastolic blood pressure Provider Name and Address Organization Details Last Updated DateTime 3 156.21 cm 36.2 kg/m2 60170.5 1 g 80 /min 98 [degF] 95 % 95 % 140 mm[Hg] 80 mm[Hg] Dalia Ellis MA [facility] 3 10:01:32 Date Recorded Body height Body mass index (BMI) Body weight Body temperature Oxygen saturation Oxygen saturation in Arterial blood by Pulse oximetry Heart rate Systolic blood pressure Diastolic blood pressure Provider Name and Address Organization Details Last Updated DateTime 4 156.21 cm 34.9 kg/m2 47209.3 7 g 98 [degF] 96 % 96 % 84 /min 134 mm[Hg] 80 mm[Hg] Dalia Ellis [place] - [facility] 4 10:15:53 Date Recorded Body height Body mass index (BMI) Body weight Heart rate Oxygen saturation Oxygen saturation in Arterial blood by Pulse oximetry Systolic blood pressure Diastolic blood pressure Provider Name and Address Organization Details Last Updated DateTime 4 156.21 cm 36.6 kg/m2 65369.7 g 82 /min 95 % 95 % 130 mm[Hg] 81 mm[Hg] Jose Correa [place] - [facility] 4 10:00:14 Social History Question Answer Notes LastModified by Organizat ion Details LastModified Time Tobacco Smoking Status Never Smoker Not Available [facility] 07/27/2020 03:43:22 Do You Have An Advance Directive? No [id number] Information not available 07/27/2020 What Is Your Level Of Alcohol Consumption? None [id number] Information not available 07/27/2020 Are You Blind Or Do You Have Difficulty Seeing? No [id number] Information not available 07/27/2020 What Is Your Level Of Caffeine Consumption? Moderate [id number] Information not available 07/27/2020 How Much Tobacco Do You Chew? None [id number] Information not available 07/27/2020 Are You Currently Employed? No Information not available 02/03/2021 Are You Deaf Or Do You Have Serious Difficulty Hearing? No [id number] Information not available 07/27/2020 What Type Of Diet Are You Following? REGULAR [id number] Information not available 07/27/2020 Which Illicit Or Recreational Drugs Have You Used? 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 No [id number] Information not available 07/27/2020 Hard Of Hearing [...] How Much Tobacco Do You Smoke? No [id number] Information not available 07/27/2020 General Stress Level Medium Information not available 02/23/2015 Do You Feel Stressed (tense, Restless, Nervous, Or Anxious, Or Unable To Sleep At Night)? [id number] Information not available 02/03/2021 Do You Use Any Illicit Or Recreational Drugs? No Information not available 02/03/2021 Do You Use Sunscreen Routinely? No [id number] Information not available 07/27/2020 Has Tobacco Cessation [...] have difficulty walking or climbing stairs? No [id number] Information not available 07/27/2020 Do you have difficulty doing errands alone? No [id number] Information not available 07/27/2020 Are you able to care for yourself? Yes Information not available 02/03/2021 Do you have difficulty dressing or bathing? No [id number] Information not available 07/27/2020 What is your exercise level? Occasional [id number] Information not available 07/27/2020 Mental Status Question Answer Note LastModified by Organization D etails LastModified Time Do you have difficulty concentrating, remembering or making decisions? No [id number] Information no t available 07/27/2020 Family History [...] Skin Problems Y Anemia N Heart Attack (VT) N Anxiety Disorder N Diabetes N Muscle, [...] Recorded Time Tdap 6 completed Not Available [facility] 10/11/2019 02:30:21 Influenza, split virus, quadrivalent, preservative 0 completed Not Available [facility] 09/28/2021 06:06:52 COVID-19, mRNA, LNP-S, PF, 100 mcg/0.5mL dose or 50 mcg/0.25mL dose 1 completed Not Available [facility] 09/28/2021 06:06:52 COVID-19, mRNA, LNP-S, PF, 100 mcg/0.5mL dose or 50 mcg/0.25mL dose 1 completed Not Available [facility] 09/28/2021 06:06:52 COVID-19, mRNA, LNP-S, PF, 100 [...] virus, quadrivalent, preservative 9 completed Not Available [facility] 10/11/2019 02:41:29 Pneumococcal conjugate PCV 13 1 completed [facility] [place] - [facility] 08/12/2021 10:52:14 Influenza, split virus, quadrivalent, preservative 5 completed Not Available [facility] 10/11/2019 02:47:51 Past Encounters Encounter ID Performer Location Encounter Start Date Encounter Closed Date Diagnosis/Indication Diagnosis SNOMED-CT Code Diagnosis ICD10 Code Diagnosis Note [id number] Maryam (Adult Med) [address] [place] [address] [id number] 02/23/2015 09:39:49 02/23/2015 11:21:06 Essential hypertension 06634916 Hyperlipidemia 87924545 Adult [facility] examination [id number] [facility] (Adult Med) [address] [place] [address] [id number] 05/26/2015 09:14:07 05/26/2015 10:15:40 Adult health examination [id number] Essential hypertension 59105358 Hyperlipidemia 69165113 Folliculitis 32565522 [id number] ALIZA Chavis (Adult Med) [address] [place] [address] [id number] 07/27/2015 09:15:41 07/27/2015 10:04:19 Administration of influenza vaccine 18558100 Z23 Adult [facility] th examination 269698987 Z00.00 Essential hypertension 14895949 I10 Hyperlipidemia 22195634 E78.5 [id number] ALIZA Chavis (Adult Med) [address] [place] [address] [id number] 10/05/2015 09:14:36 10/05/2015 10:02:26 Acute labyrinthitis 2335784837 64090 H83.09 Essential hypertension 71535209 I10 Hyperlipidemia 84675624 E78.5 [id number] ALIZA Chavis (Adult Med) [address] [place] [address] [id number] 02/03/2016 09:14:08 02/03/2016 16:59:30 Essential hypertension 73105382 I10 Hyperlipidemia 57668056 E78.5 Obesity 879669932 E66.9 Administra tion of tetanus vaccine 648377641 Z23 Screening mammography 24 899301 Z12.31 [id number] ALIZA Chavis (Adult Med) [address] [place] [address] [id number] 08/02/2016 10:29:29 08/02/2016 12:00:24 Obesity 138598477 E66.9 Hyperlipidemia 47743414 E78.5 Essential hypertension 18706417 I10 Acute labyrinthitis 4336 716041 28006 H83.09 [id number] ALIZA Chavis (Adult Med) [address] [place] [address] [id number] 11/23/2016 09:31:42 11/24/2016 11:40:13 Screening for malignant neoplasm of colon 880588894 Z12.11 Essential hypertension 39333082 I10 Hyperlipidemia 83813192 E78.5 Obesity 827591888 E66.9 Acute labyrinthitis 4336 684631 56597 H83.09 [id number] ALZIA Chavis (Adult Med) [address] [place] [address] [id number] 05/25/2017 09:32:08 05/25/2017 10:53:40 Essential hypertension 10302277 I10 Acute labyrinthitis 4336 149823 22955 H83.09 Hyperlipidemia 36974175 E78.5 Vitamin D deficiency 347 18431 E55.9 Obesity 355556867 E66.9 [id number] ALIZA Chavis (Adult Med) [address] [place] [address] [id number] 08/24/2017 09:32:20 08/24/2017 10:21:15 Essential hypertension 46176653 I10 Hyperlipidemia 31244681 E78.5 Obesity 666087736 E66.9 Vitamin D deficiency 347 63647 E55.9 Screening for malignant neoplasm of colon 283017409 Z12.11 [id number] ALIZA Chavis (Adult Med) [address] [place] [address] [id number] 02/22/2018 09:21:27 02/22/2018 10:17:15 Hyperlipidemia 65409514 E78.5 Essential hypertension 38656137 I10 Dysuria 96042723 R30.0 Low back pain 426183109 M54.5 Vitamin D deficiency 347 69982 E55.9 Obesity 687089158 E66.9 [id number] ALIZA Chavis (Adult Med) [address] [place] [address] [id number] 06/04/2018 10:03:24 06/05/2018 10:23:44 Hyperlipidemia 97511026 E78.5 Essential hypertension 61880448 I10 Obesity 268182692 E66.9 Low back pain 741465457 M54.5 Vitamin D deficiency 347 97837 E55.9 Screening for malignant neoplasm of colon 576544332 Z12.11 [id number] ALIZA Chavis (Adult Med) [address] [place] [address] [id number] 09/05/2018 09:18:32 09/05/2018 10:34:15 Essential hypertension 03778437 I10 Hyperlipidemia 38577283 E78.5 Obesity 895675161 E66.9 Vitamin D deficiency 347 82952 E55.9 Screening for malignant neoplasm of colon 215666679 Z12.11 [id number] ALIZA Chavis (Adult Med) [address] [place] [address] [id number] 11/05/2018 09:34:48 11/05/2018 10:50:15 Hypokalemia 51588620 E87.6 Hyperlipidemia 11460356 E78.5 Essential hypertension 92584544 I10 Obesity 785664698 E66.9 Vitamin D deficiency 347 49740 E55.9 Low back pain 814689025 M54.5 Screening for malignant neoplasm of colon 097224479 Z12.11 [id number] ALIZA Chavis (Adult Med) [address] [place] [address] [id number] 03/13/2019 11:20:26 03/14/2019 08:56:05 Essential hypertension 71014734 I10 Hyperlipidemia 50739098 E78.5 Vitamin D deficiency 347 77651 E55.9 Low back pain 609906095 M54.5 Hypokalemia 28198039 E87 .6 Dysuria 66826307 R30.0 Obesity 214385723 E66.9 [id number] ALIZA Chavis (Adult Med) [address] [place] [address] [id number] 05/12/2019 09:16:58 05/13/2019 09:16:57 Low back pain 338364008 M54.5 [id number] Danish Francisco ([facility]) [address] [place] [address] [id number] 06/19/2019 09:57:34 06/20/2019 11:42:59 Screening mammography 38506785 Z12.31 History of hysterectomy 493843708 Z90.711 2007 for cervical cancer Screening for osteoporosis 981763829 Z13.820 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 Menopausal syndrome 1237 07148 N95.9 Candidal vulvovaginitis 62793435 B37.3 [id number] ALIZA Chavis (Adult Med) [address] [place] [address] [id number] 06/26/2019 09:20:24 06/26/2019 10:03:58 Essential hypertension 77756071 I10 Hyperlipidemia 02433442 E78.5 Vitamin D deficiency 347 33390 E55.9 Low back pain 455773779 M54.5 Hypokalemia 82579656 E87 .6 Administra tion of influenza vaccine 40128718 Z23 Obesity 154611243 E66.9 [id number] ALIZA Chavis (Adult Med) [address] [place] [address] [id number] 07/24/2019 09:27:53 07/24/2019 10:15:50 Essential hypertension 94891621 I10 Hyperlipidemia 32922129 E78.5 Obesity 413139590 E66.9 Vitamin D deficiency 347 56910 E55.9 Low back pain 198949024 M54.5 Hypokalemia 75302461 E87 .6 History of hysterectomy 934465944 Z90.498 [id number] ALIZA Chavis (Adult Med) [address] [place] [address] [id number] 12/08/2019 10:44:52 12/08/2019 11:47:12 Normal grief reaction 858643875 F43.20 Essential hypertension 84224351 I10 Hyperlipidemia 92779795 E78.5 Vitamin D deficiency 347 01590 E55.9 Hypokalemia 77322496 E87 .6 Low back pain 850525875 M54.5 [id number] ALIZA Chavis (Adult Med) [address] [place] [address] [id number] 04/13/2020 09:35:27 04/13/2020 10:18:08 Essential hypertension 77830604 I10 Hyperlipidemia 97594430 E78.5 Vitamin D deficiency 347 46192 E55.9 High hemog lobin A1c level 496875600 R73.09 [id number] ALIZA Chavis (Adult Med) [address] [place] [address] [phone] 0 07/26/2020 08:00:03 07/26/2020 11:11:05 High hemoglobin A1c level 883999097 R73.09 Hyperlipidemia 57448666 E78.5 Low back pain 743138390 M54.5 Vitamin D deficiency 347 94310 E55.9 Essential hypertension 71613014 I10 Normal grief reaction 27 7595430 F43.20 Hypokalemia 41230341 E87 .6 [id number] ALIZA Chavis (Adult Med) [address] [place] [address] [phone] 0 01/04/2021 11:05:45 01/06/2021 11:05:34 Low back pain 895728260 M54.5 Essential hypertension 27529977 I10 Hyperlipidemia 42530488 E78.5 Vitamin D deficiency 347 71719 E55.9 [id number] ALIZA Chavis (Adult Med) [address] [place] [address] [phone] 0 02/03/2021 11:43:22 02/03/2021 12:23:07 Low back pain 098681350 M54.5 Hyperlipidemia 06018543 E78.5 Hypokalemia 19200898 E87 .6 Vitamin D deficiency 347 73579 E55.9 High hemog lobin A1c level 343683731 R73.09 Essential hypertension 91579695 I10 [id number] ALIZA Chavis (Adult Med) [address] [place] [address] [phone] 0 03/31/2021 10:35:44 03/31/2021 11:41:27 Cardiomegaly 1970657 I51.7 Hyperlipidemia 65020829 E78.5 Essential hypertension 09756911 I10 Screening for malignant neoplasm of breast 615402965 Z12.39 High hemog lobin A1c level 114223332 R73.09 Low back pain 412472728 M54.5 Vitamin D deficiency 347 25714 E55.9 Screening mammography of bilateral breasts 9077841632 16665 Z12.31 [id number] ALIZA Chavis (Adult Med) [address] [place] [address] [phone] 0 08/12/2021 09:37:08 08/12/2021 11:13:10 Mammography abnormal 123805861 R92.8 Administra tion of pneumococcal vaccine 46966786 Z23 Normal grief reaction 27 4701609 F43.20 Menopause present 436353 006 Z78.0 [id number] ALIZA Chavis (Adult Med) [address] [place] [address] 29011-735 0 11/25/2021 10:21:39 12/01/2021 17:01:26 Cervical spondylosis 492888158 M47.812 Essential hypertension 59682933 I10 High hemog lobin A1c level 428071834 R73.09 Hyperlipidemia 95464484 E78.5 Low back pain 452502667 M54.50 Normal grief reaction 27 8958846 F43.20 Vitamin D deficiency 347 83607 E55.9 [id number] ALIZA Chavis (Adult Med) [address] [place] [address] 23142-885 0 02/28/2022 09:59:45 03/01/2022 11:47:22 Essential hypertension 02997723 I10 Acute labyrinthitis 4336 317145 11571 H83.09 Cardiomegaly 4317083 I51 .7 Cervical spondylosis 387 673953 M47.812 High hemog lobin A1c level 340661980 R73.09 Hyperlipidemia 78856867 E78.5 Low back pain 873884841 M54.50 Obesity 139716084 E66.9 Vitamin D deficiency 347 47627 E55.9 [id number] ALIZA Chavis (Adult Med) [address] [place] [address] [phone] 0 04/04/2022 09:06:07 04/05/2022 11:44:29 Screening for malignant neoplasm of breast 978909254 Z12.39 Vitamin D deficiency 347 88019 E55.9 Normal grief reaction 27 0855773 F43.20 Hyperlipidemia 62970855 E78.5 Essential hypertension 33801220 I10 HIV screening 304034200 Z11.4 High hemog lobin A1c level 024144396 R73.09 Cervical spondylosis 387 281801 M47.812 Low back pain 793761026 M54.50 Screening mammography 24 597368 Z12.31 [id number] ALIZA Chavis (Adult Med) [address] [place] [address] 79310-359 0 05/08/2022 10:18:30 05/09/2022 08:17:42 Essential hypertension 04870796 I10 Low back pain 953654487 M54.50 Pharyngitis 845868544 J0 2.9 Cardiomegaly 8947299 I51 .7 Cervical spondylosis 387 920338 M47.812 High hemog lobin A1c level 529933764 R73.09 Hyperlipidemia 66311929 E78.5 Normal grief reaction 27 2577134 F43.20 Vitamin D deficiency 347 58602 E55.9 [id number] ALIZA Chavis (Adult Med) [address] [place] [address] [id number] 0 06/09/2022 10:30:01 06/12/2022 13:58:21 Cervical spondylosis 795976297 M47.812 Hyperlipidemia 42022169 E78.5 Essential hypertension 84194997 I10 Low back pain 803433732 M54.50 Obesity 579649261 E66.9 Vitamin D deficiency 347 55843 E55.9 Cardiomegaly 9413340 I51 .7 High hemog lobin A1c level 252283403 R73.09 [id number] MD Maryam White (Adult Med) [address] [place] [address] 86434-804 0 08/09/2022 14:57:26 08/11/2022 12:39:15 Essential hypertension 34013204 I10 Cont current regimen Cough 64166093 R05.9 [id number] MD Maryam White (Adult Med) [address] [place] [address] [phone] 0 01/08/2023 10:13:51 01/09/2023 10:18:23 Morbid obesity 104232381 E66.01 Essential hypertension 19098857 I10 Cont current regimen Hyperlipidemia 02957427 E78.5 Cardiomegaly 0284800 I51 .7 Finger joint stiff 37422 8005 M25.649 Vitamin D deficiency 347 09248 E55.9 Screening for malignant neoplasm of colon 628527924 Z12.11 [id number] MD Maryam White (Adult Med) [address] [place] [address] 43936-179 0 05/10/2023 09:35:49 05/14/2023 10:00:26 Essential hypertension 37963970 I10 high x last three visits. Will increase amlodipine to 10 mg/d Morbid obesity 836803072 E66.01 Screening for malignant neoplasm of breast 559538043 Z12.39 Screening for malignant neoplasm of colon 381642696 Z12.11 Pain of bi lateral hands 7160888945 4191272 M79.641 M79.642 Screening mammography 24 415189 Z12.31 [id number] MD Maryam White (Adult Med) [address] [place] [address] [phone] 0 07/10/2023 09:34:52 07/19/2023 12:43:18 Essential hypertension 05787877 I10 Will increase amlodipine to 10 mg/d. Will increase losartan Hyperlipidemia 06769413 E78.5 Hypokalemia 11958245 E87 .6 Low back pain 271967606 M54.50 Morbid obesity 230292296 E66.01 Vitamin D deficiency 347 09739 E55.9 [id number] Emperatriz Meyer MD [facility] (Adult Med) [address] [place] [address] 01340-374 0 01/09/2024 09:27:37 01/10/2024 12:34:09 Obesity 378259320 E66.9 Essential hypertension 10125621 I10 Continue current regimen High hemog lobin A1c level 161741739 R73.09 Hyperlipidemia 18173208 E78.5 Hypokalemia 98398788 E87 .6 Low back pain 705383791 M54.50 Morbid obesity 791516485 E66.01 Vitamin D deficiency 347 05735 E55.9 History of polyp of colon 032558579 Z86.010 Get colonoscop y results Disorder of skin 7817939 5 L98.9 [id number] Emperatriz Meyer MD [facility] (Adult Med) [address] [place] [address] [phone] 0 07/07/2024 09:31:14 07/08/2024 10:00:55 Essential hypertension 61864953 I10 Continue current regimen High hemog lobin A1c level 216196109 R73.09 History of polyp of colon 851423914 Z86.0100 Hyperlipidemia 39721983 E78.5 Morbid obesity 268572590 E66.01 Vitamin D deficiency 347 25181 E55.9 Carcinoma of breast 2548 42789 C50.919 Screening for malignant neoplasm of breast 958037052 Z12.39 Disorder of left ear 470 3933997 224448 H93.92 Will refer to ENT after other problems addresses Hypokalemia 99550069 E87 .6 Health Concerns Section Related Observation LastModified by Organization Detai ls LastModified Time None Recorded Concern Status LastModified by Organization Details LastModified Time None Recorded Advance Directives Directive N: Payers Encounter Date Sequence Insurance Name Policy Number Policy Mcghee Covered Member ID Mcghee Member ID Guarantor Name 01/08/2023 1 [employer] (MEDICARE REPLACEMENT/A DVANTAGE - HMO) [id number] Yaneth A Estrella [id number] Yaneth Ebonie Estrella 05/10/2023 1 [employer] (MEDICARE REPLACEMENT/A DVANTAGE - HMO) [id number] Yaneht A Estrella [id number] Yaneth Ebonie Estrella 07/10/2023 1 [employer] (MEDICARE REPLACEMENT/A DVANTAGE - HMO) [id number] Yaneth A Estrella [id number] Yaneth Ebonie Estrella 01/09/2024 1 [employer] (MEDICARE REPLACEMENT/A DVANTAGE - HMO) [id number] Yaneth A Estrella [id number] Yaneth Ebonie Estrella 07/07/2024 1 [employer] (MEDICARE REPLACEMENT/A DVANTAGE - HMO) [id number] Yaneth A Estrella [id number] Yaneth Ebonie Estrella Notes Date Note Type Note Provider Name and Address Organization Details Recorded Time 01/08/2023 text/html Hands swelling a nd stiffness in hands especially on the left in the past month. She has tried OTC meds with some relief. Emperatriz Meyer MD Attn: [address] [place], [address], [facility] 01/08/2023 11:04:03 05/10/2023 text/html Here for four month f/u visit. Needs mammogram. BP med was apparently denied Emperatriz Meyer MD Attn: [address] [place], [address], [place] 05/10/2023 10:41:36 07/10/2023 text/html Here for BP f/u. Scheduled for colonoscopy in two days. Emperatriz Meyer MD Attn: [address] [place], [address], [place] 07/10/2023 10:38:18 01/09/2024 text/html Here for routine f/u. Had colonoscopy about six months ago. Wants results. Has skin lesions on her ear she wants examined by dermatology Emperatriz Meyer MD Attn: [address] [place], [address], [facility] 01/09/2024 10:39:49 07/07/2024 text/html Throbbing of lef t ear for four months. Needs mammogram Emperatriz Meyer MD Attn: [address], [place], [address], [facility] 07/07/2024 10:40:04 OBGyn Episode Ob Episode Information Episode Created Date Number of Fetuses Patient Bloodtype Patient rh Status Prepregnancy Weight lbs Domestic Partner Domestic Partner Phone Father Name Account Administrator Status 06/19/20 19 1 CLOSED Fetus Data First Name Last Name Admitted to NICU Weight (g) Sex Living Outcome Pediatric Complications Fetus ID Race Codes Race Delivery Type Full Term [id number] Nathanael Calculation Initial Nathanael Date Initial Exam [...] Domestic Partner Domestic Partner Phone Father Name Account Administrator Status 06/19/20 19 1 CLOSED Fetus Data First Name Last Name Admitted to NICU Weight (g) Sex Living Outcome Pediatric Complications Fetus ID Race Codes Race Delivery Type Full Term [id number] Nathanael Calculation Initial Nathanael Date Initial Exam [...]
--- NOTE | 2024-11-18 13:56 | PC.NURSE ---
Pt. approached nurses station asking for VS of pt. to be rechecked. VS reassessed by this RN and charted in flowsheet.
--- NOTE | 2024-11-18 14:16 | ED_ITS ---
HPI - Weakness General Chief complaint: Weakness <Indio Pate PA-C - Last Filed: 11/18/24 14:39> Stated complaint: weakness <Indio Pate PA-C - Last Filed: 11/18/24 14:39> Time Seen by Provider: 11/18/24 16:27 <Indio Pate PA-C - Last Filed: 11/18/24 14:39> Focused HPI: 68-year-old female with PMH of colon cancer who presents to the ED for chief complaint of generalized fatigue and weakness. Patient states that she has been nauseous but no episodes of vomiting. States that she is set to start specialized chemotherapy at [facility] for her cancer, but has not yet started this. Endorses history of ileostomy but has no abdominal complaints other than the nausea. She does feel that she may have pneumonia as she has been persistently coughing from her most recent hospital stay 2 weeks ago. GENERAL: Appears generally weak and dehydrated. HEAD: Normocephalic, atraumatic. CHEST: Clear to auscultation. No respiratory distress. HEART: Regular rate and rhythm. NEURO: Alert and oriented x3. Patient screened in triage and initial orders placed. Additional care and disposition to be based upon diagnostic testing and treatment. <Indio Pate PA-C - Last Filed: 11/18/24 14:39> Source: patient <Indio Pate PA-C - Last Filed: 11/18/24 14:39> Mode of arrival: ambulatory <Indio Pate PA-C - Last Filed: 11/18/24 14:39> Limitations: no limitations <Indio Pate PA-C - Last Filed: 11/18/24 14:39> History of Present Illness HPI Narrative: Patient is a 68-year-old female who presents emergency department chief complaint of generalized weakness fatigue and nausea patient reports that she was recently in the hospital after she was having increased output from her ileostomy site patient states she also had pneumonia during that time. Patient reports that she has been not feeling well got worse the last 48 hour she reported no fever does report that she is to be seen at the [facility] for possible chemotherapy. <Ferny Black MD - Last Filed: 11/18/24 17:27> Related Data Home medications: Home Medications ?Medication ?Instructions ?Recorded ?Confirmed ?Last Taken ?Type amlodipine 5 mg tablet 5 mg PO DAILY 10/15/24 11/14/24 10/21/24 History aspirin 81 mg chewable tablet 81 mg PO DAILY 10/15/24 11/14/24 10/21/24 History ezetimibe 10 mg tablet 10 mg PO DAILY 10/15/24 11/14/24 10/21/24 History metoprolol succinate 50 mg 50 mg PO Q12H 10/15/24 11/14/24 10/21/24 History tablet,extended release 24 hr pravastatin 40 mg tablet 40 mg PO DAILY 10/15/24 11/14/24 10/21/24 History <Indio Pate PA-C - Last Filed: 11/18/24 14:39> Allergies/Adverse reactions: Allergies Allergy/AdvReac Type Severity Reaction Status Date / Time No Known Allergies Allergy Verified 11/18/24 15:34 <Indio Pate PA-C - Last Filed: 11/18/24 14:39> Review of Systems 2 Review of Systems: A 10 system review of systems was completed on the patient and is negative except for what is stated in the HPI. Nursing and ancillary documentation was reviewed. 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 Otero History of total abdominal hysterectomy History of lumpectomy of left breast <Indio Pate PA-C - Last Filed: 11/18/24 14:39> Family History Family History: Family History Sibling Lung cancer COVID Diabetes mellitus Father Leukemia Mother Heart trouble <Indio Pate PA-C - Last Filed: 11/18/24 14:39> Social History Social History: Social History Smoking status: Never smoker Second hand tobacco smoke exposure: No Alcohol intake: never Substance use: never Do You Feel Safe in your Home?: Yes Lack of Transportation: No Lack of Food: Never True Current Housing: I Have Housing Concerned About Future Housing: No Difficulty Paying Gas/Electric Bills: No Difficulty Paying for Meds: No Currently Unemployed: No Education: Decline to Answer Difficulty w/ Childcare or Family Care: No Spiritual care concerns: No <Indio Pate PA-C - Last Filed: 11/18/24 14:39> Exam 2 Narrative: GENERAL: Well-appearing, well-nourished, and in no acute distress. HEAD: Normocephalic, atraumatic. EYES: PERRLA and EOMI. ENT: Nares clear, no rhinorrhea or epistaxis. Mucous membranes moist. NECK: Supple. CHEST: Clear to auscultation. No respiratory distress. HEART: Regular rate and rhythm. No murmur heard. Normal peripheral pulses. ABDOMEN: Soft, nontender ileostomy bag present, nondistended, normal active bowel sounds. EXTREMITIES: Normal range of motion. No edema. SKIN: Warm, dry, no rash. NEURO: No focal deficits. Alert and oriented x3. PSYCH: Normal mood and affect. <Ferny Black MD - Last Filed: 11/18/24 17:27> Course Vital Signs Vital signs: Vital Signs Temperature 36.7 C 11/18/24 12:04 Pulse Rate 109 H 11/18/24 12:04 Respiratory Rate 16 11/18/24 12:04 Blood Pressure 147/78 H 11/18/24 12:04 Pulse Oximetry 93 11/18/24 12:04 Oxygen Delivery Room Air 11/18/24 12:04 Temperature 36.7 C 11/18/24 12:04 Pulse Rate 105 H 11/18/24 13:57 Respiratory Rate 14 11/18/24 13:57 Blood Pressure 129/71 11/18/24 13:57 Pulse Oximetry 94 11/18/24 13:57 Oxygen Delivery Room Air 11/18/24 13:57 <Indio Pate PA-C - Last Filed: 11/18/24 14:39> Vital Signs Temperature 36.7 C 11/18/24 12:04 Pulse Rate 109 H 11/18/24 12:04 Respiratory Rate 16 11/18/24 12:04 Blood Pressure 147/78 H 11/18/24 12:04 Pulse Oximetry 93 11/18/24 12:04 Oxygen Delivery Room Air 11/18/24 12:04 Temperature 36.7 C 11/18/24 12:04 Pulse Rate 105 H 11/18/24 13:57 Respiratory Rate 14 11/18/24 13:57 Blood Pressure 129/71 11/18/24 13:57 Pulse Oximetry 94 11/18/24 13:57 Oxygen Delivery Room Air 11/18/24 13:57 <Ferny Black MD - Last Filed: 11/18/24 17:27> MDM - Weakness MDM Narrative Medical decision making narrative: Differential diagnosis includes pneumonia, sepsis, intra-abdominal infection. Patient had a leukocytosis white count 14.9 patient was 11.7 earlier this month hemoglobin has increased to 12.1 from 9 electrolytes showed a normal BUN and creatinine potassium was low at 2.9 bilirubin has increased to 4.0 AST and ALT were slightly elevated at 102 and 83 CRP was 13.9 lipase was 344 urinalysis showed 51-100 red blood cells 0-5 whites COVID flu and RSV were negative CT scan of the abdomen pelvis showed an 18 mm liver mass suspicious for abscess or metastatic disease cholelithiasis with gallbladder distention there is also a gallstone in the gallbladder <Ferny Black MD - Last Filed: 11/18/24 17:27> Lab Data Result diagrams: 11/18/24 15:32 11/18/24 15:32 <Indio Pate PA-C - Last Filed: 11/18/24 14:39> Labs: Lab Results 11/18/24 11/18/24 11/18/24 Range/Units 15:32 15:44 16:12 WBC 14.9 H (4.5-10.0) K/mm3 RBC 4.53 (4.2-5.4) M/mm3 Hgb 12.5 D (12.0-15.0) g/dL Hct 38.6 (37.0-47.0) % MCV 85.2 (80-100) fl MCH 27.6 (26-34) pg MCHC 32.4 (32-36) g/dl RDW 14.2 (11.5-14.5) % Plt Count 305 (150-375) k/mm3 MPV 10.3 (7.4-10.4) fl Immature Gran % (Auto) 0.6 H (0-0.5) % Neut % (Auto) 83.3 H (45.5-73.1) % Lymph % (Auto) 7.9 L (18.3-44.2) % [place] % (Auto) 7.2 (2.6-8.5) % Eos % (Auto) 0.7 (0-4.4) % Baso % (Auto) 0.3 (0.2-1.2) % Lymph # (Auto) 1.17 (0.9-3.2) K/mm3 [place] # (Auto) 1.1 H (0.1-0.6) K/mm3 Eos # (Auto) 0.1 (0-0.3) K/mm3 Baso # (Auto) 0.0 (0.0-0.1) K/mm3 Abs Immat Gran (auto) 0.09 H (0.00-0.031) K/mm3 Absolute Neuts (auto) 12.4 H (1.3-6.7) K/mm3 Absolute Nucleated RBC 0.000 (0.0-0.012) K/mm3 Nucleated RBC % 0.0 (0.0-0.2) % Sodium 132 L (137-145) mmol/L Potassium 2.9 L (3.4-5.0) mmol/L Chloride 88 L (98-107) mmol/L Carbon Dioxide 32 H (22-30) mmol/L Anion Gap 12 (4-12) mmol/L BUN 14 (7-17) mg/dL Creatinine 0.66 L (0.7-1.0) mg/dL Estim Creat Clear Calc 69 ml/min Estimated GFR > 60 (59 - ) Glucose 204 H (65-110) mg/dL Calcium 9.3 (8.4-10.2) mg/dL Total Bilirubin 4.0 H (0.2-1.3) mg/dL AST 102 H (14-36) U/L ALT 83 H (6-35) U/L Alkaline Phosphatase 216 H (38-126) U/L C-Reactive Protein 13.9 H (<1.0) mg/dL Total Protein 8.0 (6.3-8.2) g/dL Albumin 4.2 (3.5-5.1) g/dL Lipase 344 H (23-300) U/L Urine Color Dark yellow (Yellow) Urine Appearance Turbid H (Clear) Urine pH 5.5 (5.0-9.0) Ur Specific [place] 1.022 (1.001-1.035) Urine Protein 2+ H (Negative) mg/dL Urine Glucose (UA) Negative (Negative) mg/dL Urine Ketones Negative (Negative) mg/dL Ur Blood (Man) Negative (Negative) Urine Nitrate Positive H (Negative) Urine Bilirubin 3+ H (Negative) Urine Urobilinogen 1.0 (<2.0) mg/dL Add Ur Microanalysis Reviewed Leukocyte Esterase Rfl 1+ H (Negative) JULIAN/UL Urine RBC 51-100 H (0-2) /hpf Urine WBC 0-5 (0-3) /hpf Ur Squamous Epith Cells Moderate (Few) /hpf Urine Bacteria None seen /hpf Urine Casts >20 Urine Mucus Present /lpf Urine Yeast (Budding) Present H (None) /hpf Influenza A (RT-PCR) Negative (Negative) Influenza B (RT-PCR) Negative (Negative) RSV (RT-PCR) Negative (Negative) SARS-CoV-2 RNA (RT-PCR) Negative (Negative) <Indio Pate PA-C - Last Filed: 11/18/24 14:39> Lab Results 11/18/24 11/18/24 11/18/24 Range/Units 15:32 15:44 16:12 WBC 14.9 H (4.5-10.0) K/mm3 RBC 4.53 (4.2-5.4) M/mm3 Hgb 12.5 D (12.0-15.0) g/dL Hct 38.6 (37.0-47.0) % MCV 85.2 (80-100) fl MCH 27.6 (26-34) pg MCHC 32.4 (32-36) g/dl RDW 14.2 (11.5-14.5) % Plt Count 305 (150-375) k/mm3 MPV 10.3 (7.4-10.4) fl Immature Gran % (Auto) 0.6 H (0-0.5) % Neut % (Auto) 83.3 H (45.5-73.1) % Lymph % (Auto) 7.9 L (18.3-44.2) % [place] % (Auto) 7.2 (2.6-8.5) % Eos % (Auto) 0.7 (0-4.4) % Baso % (Auto) 0.3 (0.2-1.2) % Lymph # (Auto) 1.17 (0.9-3.2) K/mm3 [place] # (Auto) 1.1 H (0.1-0.6) K/mm3 Eos # (Auto) 0.1 (0-0.3) K/mm3 Baso # (Auto) 0.0 (0.0-0.1) K/mm3 Abs Immat Gran (auto) 0.09 H (0.00-0.031) K/mm3 Absolute Neuts (auto) 12.4 H (1.3-6.7) K/mm3 Absolute Nucleated RBC 0.000 (0.0-0.012) K/mm3 Nucleated RBC % 0.0 (0.0-0.2) % Sodium 132 L (137-145) mmol/L Potassium 2.9 L (3.4-5.0) mmol/L Chloride 88 L (98-107) mmol/L Carbon Dioxide 32 H (22-30) mmol/L Anion Gap 12 (4-12) mmol/L BUN 14 (7-17) mg/dL Creatinine 0.66 L (0.7-1.0) mg/dL Estim Creat Clear Calc 69 ml/min Estimated GFR > 60 (59 - ) Glucose 204 H (65-110) mg/dL Calcium 9.3 (8.4-10.2) mg/dL Total Bilirubin 4.0 H (0.2-1.3) mg/dL AST 102 H (14-36) U/L ALT 83 H (6-35) U/L Alkaline Phosphatase 216 H (38-126) U/L C-Reactive Protein 13.9 H (<1.0) mg/dL Total Protein 8.0 (6.3-8.2) g/dL Albumin 4.2 (3.5-5.1) g/dL Lipase 344 H (23-300) U/L Urine Color Dark yellow (Yellow) Urine Appearance Turbid H (Clear) Urine pH 5.5 (5.0-9.0) Ur Specific [place] 1.022 (1.001-1.035) Urine Protein 2+ H (Negative) mg/dL Urine Glucose (UA) Negative (Negative) mg/dL Urine Ketones Negative (Negative) mg/dL Ur Blood (Man) Negative (Negative) Urine Nitrate Positive H (Negative) Urine Bilirubin 3+ H (Negative) Urine Urobilinogen 1.0 (<2.0) mg/dL Add Ur Microanalysis Reviewed Leukocyte Esterase Rfl 1+ H (Negative) JULIAN/UL Urine RBC 51-100 H (0-2) /hpf Urine WBC 0-5 (0-3) /hpf Ur Squamous Epith Cells Moderate (Few) /hpf Urine Bacteria None seen /hpf Urine Casts >20 Urine Mucus Present /lpf Urine Yeast (Budding) Present H (None) /hpf Influenza A (RT-PCR) Negative (Negative) Influenza B (RT-PCR) Negative (Negative) RSV (RT-PCR) Negative (Negative) SARS-CoV-2 RNA (RT-PCR) Negative (Negative) <Ferny Black MD - Last Filed: 11/18/24 17:27> Discharge Plan Discharge Clinical Impression: Cholelithiasis, Colon cancer, Acute dehydration, Elevated liver enzymes <Indio Pate PA-C - Last Filed: 11/18/24 14:39> Patient Disposition: Still a Patient <Indio Pate PA-C - Last Filed: 11/18/24 14:39> Condition: Stable <Indio Pate PA-C - Last Filed: 11/18/24 14:39> Patient Language: Beninese <Indio Pate PA-C - Last Filed: 11/18/24 14:39> Prescriptions: No Action metoclopramide HCl [Reglan] 10 mg tablet 10 mg PO Q6H PRN (Reason: nausea and vomiting) Qty: 30 1RF amlodipine 5 mg tablet 5 mg PO DAILY ezetimibe 10 mg tablet 10 mg PO DAILY metoprolol succinate 50 mg tablet extended release 24 hr 50 mg PO Q12H pravastatin 40 mg tablet 40 mg PO DAILY aspirin 81 mg tablet,chewable 81 mg PO DAILY <Indio Pate PA-C - Last Filed: 11/18/24 14:39> Follow-up/Referrals: Corwin,Emperatriz Myers MD [Primary Care Provider] - <Indio Pate PA-C - Last Filed: 11/18/24 14:39> Time of Disposition: 17:27 <Indio Pate PA-C - Last Filed: 11/18/24 14:39> 17:27 <Ferny Black MD - Last Filed: 11/18/24 17:27>
[2024-11-18 15:38] LABS: Basophils Percent Auto 0.3 % (0.2-1.2); Eosinophils Absolute Auto 0.1 K/mm3 (0-0.3); Eosinophils Percent Auto 0.7 % (0-4.4); Hematocrit 38.6 % (37.0-47.0); Hemoglobin 12.5 g/dL (12.0-15.0); Immature Granulocyte Absolute 0.09 K/mm3 (0.00-0.031); Immature Granulocyte Percent A 0.6 % (0-0.5); Lymphocytes Absolute Auto 1.17 K/mm3 (0.9-3.2); Lymphocytes Percent Auto 7.9 % (18.3-44.2); Mean Corpuscular HGB Conc 32.4 g/dl (32-36); Mean Corpuscular Hemoglobin 27.6 pg (26-34); Mean Corpuscular Volume 85.2 fl (80-100); Mean Platelet Volume 10.3 fl (7.4-10.4); Monocytes Absolute Auto 1.1 K/mm3 (0.1-0.6); Monocytes Percent Auto 7.2 % (2.6-8.5); Neutrophils Absolute Auto 12.4 K/mm3 (1.3-6.7); Neutrophils Percent Auto 83.3 % (45.5-73.1); Platelet Count Result 305 k/mm3 (150-375); Red Blood Count 4.53 M/mm3 (4.2-5.4); Red Cell Distribution Width 14.2 % (11.5-14.5); White Blood Count 14.9 K/mm3 (4.5-10.0)
[2024-11-18 16:00] LABS: Alanine Aminotransferase 83 U/L (6-35); Albumin Level 4.2 g/dL (3.5-5.1); Alkaline Phosphatase 216 U/L (38-126); Anion Gap 12 mmol/L (4-12); Aspartate Amino Transferase 102 U/L (14-36); Blood Urea Nitrogen 14 mg/dL (7-17); CRP 13.9 mg/dL (<1.0); Calcium 9.3 mg/dL (8.4-10.2); Carbon Dioxide 32 mmol/L (22-30); Chloride 88 mmol/L (98-107); Estimated CRCL calculation 69 ml/min; Estimated Glomerular Filt Rate > 60; Glucose 204 mg/dL (65-110); Lipase 344 U/L (23-300); Potassium 2.9 mmol/L (3.4-5.0); Sodium 132 mmol/L (137-145)
[2024-11-18 16:27] LABS: Add Urine Microscopic? YES; Appearance Urine Turbid (Clear); Bacteria Urine None Seen /hpf; Bilirubin Urine 3+ (Negative); Blood Urine Negative (Negative); Budding Yeast Urine Present /hpf; Glucose Urine UA Negative (Negative); Ketones Urine Negative (Negative); Leukocyte Esterase Ur 1+ LEU/UL (Negative); Mucus Urine Present /lpf; Need Manual Microscopic Reviewed; Nitrate Urine Positive (Negative); Non Pathogenic Casts >20; Protein Urine 2+ mg/dL (Negative); RBC Urine 51-100 /hpf (0-2); Specific Grav Ur 1.022 (1.001-1.035); Squamous Epithelial Cell Urine Moderate /hpf (Few); WBC Urine 0-5 /hpf (0-3); pH Urine 5.5 (5.0-9.0)
[2024-11-18 16:28] LABS: Color Urine Dark Yellow (Yellow)
[2024-11-18 16:33] LABS: Influenza A QL RT-PCR Negative (Negative); Influenza B QL RT-PCR Negative (Negative); RSV RNA, RT-PCR Negative (Negative); SARS-CoV-2 RNA PCR Negative (Negative)
--- OUTSIDE RECORDS SUMMARY | 2024-11-18 16:45 | XMS_ITS | Referral Summary ---
Author Organization [facility] Address [address] [place] [address] Care Team Providers Care Supervisor [employer] Name Role Phone Richardson Correa Primary Care Provider + Richardson Correa Unavailable [phone] Aris Meyer MD Unavailable Ghanshyam Calixto DO Unavailable [phone] Domingo Bearden MD Unavailable [phone] Ebony Masters MD Unavailable [phone] Allergies No known active allergies Medications diclofenac [...] from 05/26/2021:Stage IB(cT2, cN0, cM0, G2, ER+, OR+, HER2-) - Signed by Ebony Masters MD on 08/31/2021 Pathologic stage from 09/26/2021:Stage IA(pT1b, pN0(sn), cM0, G2, ER+, OR+, HER2-) - Signed by Ebony Masters MD [...] on file Legal Sex Female 7:22 AM [employer]MAN Gender Identity Not on file Sexual Orientation [...] Insurance MEDICARE SOLUTIONS MED[employer]ARE SOLUTIONS Care Teams Supervisor [employer] Relationship Specialty Start Date End Date Richardson Correa PA [address] [place] [id number] PCP - General Internal Medicine 08/31/21 Richardson Correa PA [address] [place] [address] [id number] Internal Medicine 08/31/21 Aris Meyer MD [address] [place] [address] Consulting Physician Cardiology 08/31/21 Ghanshyam Calixto DO [address] [place] [address] [phone] Medical Oncologist/Feller Buncher Operator Hematology and Oncology 08/31/21 Domingo Bearden MD [address] [place] [address] [phone] Surgeon General Surgery 08/31/21 Ebony Masters MD [address] [place] [address] [phone] Radiation Oncologist Radiation Oncology 05/14/24
--- OUTSIDE RECORDS SUMMARY | 2024-11-18 16:45 | XMS_ITS | Clinical Summary ---
Author Organization [facility] Address [address] [place] [address] Care Team Providers Care Dance Studio Manager Name Role Phone Richardson Correa Primary Care Provider + Richardson Correa Unavailable [phone] Aris Meyer MD Unavailable Ghanshyam Calixto DO Unavailable [phone] Domingo Bearden MD Unavailable [phone] Ebony Masters MD Unavailable [phone] Allergies No known active allergies Medications diclofenac [...] on file Legal Sex Female 7:22 AM DIRECTOR PRESALES Gender Identity Not on file Sexual Orientation [...] or Tdap) 02/02/2026 02/03/2016 Insurance MEDICARE SOLUTIONS [place] [id number] MEDICARE SOLUTIONS [place] [id number] Care Teams Dance Studio Manager Relationship Specialty Start Date End Date Richardson Correa PA [address] [place] [id number] PCP - General Internal Medicine 08/31/21 Richardson Correa PA [address] [place] [id number] Internal Medicine 08/31/21 Aris Meyer MD [address] [place] [address] Consulting Physician Cardiology 08/31/21 Ghanshyam Calixto DO [address] [id number] Medical Oncologist/Clinical Rehabilitation Liaison Hematology and Oncology 08/31/21 Domingo Bearden MD [facility] [address] [place] [address] Surgeon General Surgery 08/31/21 Ebony Masters MD [address] [facility] [address] [place] [address] Radiation Oncologist Radiation Oncology 05/14/24
--- OUTSIDE RECORDS SUMMARY | 2024-11-18 16:45 | XMS_ITS | Clinical Summary ---
Author Organization [facility] Address [address] [place] [address] Care Team Providers Care It Applications Analyst Name Role Phone Richardson Correa Primary Care Provider + Aris Meyer MD Unavailable [phone] Allergies No known active allergies Medications [...] Comments Blood Pressure 167/88 09/26/2021 4:12 PM BILLET WORKER Pulse 99 09/26/2021 4:12 PM BILLET WORKER Temperature 37 C (98.6 F) 09/26/2021 4:12 PM BILLET WORKER Respiratory Rate 20 09/26/2021 4:12 PM BILLET WORKER Oxygen Saturation 93% 09/26/2021 4:12 PM BILLET WORKER Inhaled Oxygen Concentration - - Weight 88.4 kg (194 lb 14.2 oz) 022 11:00 AM BILLET WORKER Height 154.9 cm (5' 1 ) 09/26/2021 11:0 0 AM BILLET WORKER Body Mass Index 36.82 09/26/2021 11:00 AM BILLET WORKER Plan of Treatment Health Maintenance Due Date [...] age to complete this topic Insurance [facility] Care Teams It Applications Analyst Relationship Specialty Start Date End Date Richardson Correa PA PCP - General PHYSICIAN SCHEDULING MANAGER 09/13/21 [place] [address] [place] [address] CARDIOVASCULAR DISEASE 09/13/21
--- OUTSIDE RECORDS SUMMARY | 2024-11-18 16:45 | XMS_ITS ---
Author Organization [facility] Address [address] [place] [address] Care Team Providers Care Commercial Counsel Name Role Phone Richardson Correa Primary Care Provider + Richardson Correa Unavailable [phone] Aris Meyer MD Unavailable Ghanshyam Calixto DO Unavailable [phone] Domingo Bearden MD Unavailable [phone] Ebony Masters MD Unavailable [phone] Active Problems Problem Noted Date Diagnosed Date Personal history of radiation therapy 12/26/2021 Malignant neoplasm of upper- outer quadrant of left breast in female, estrogen receptor positive 08/31/2021 Cancer Staging:Clinical stage from 05/26/2021:Stage IB(cT2, cN0, cM0, G2, ER+, DC+, HER2-) - Signed by Ebony Masters MD on 08/31/2021 Pathologic stage from 09/26/2021:Stage IA(pT1b, pN0(sn), cM0, G2, ER+, DC+, HER2-) - Signed by Ebony Masters MD [...]
[2024-11-18] MEDS: KCL 20 MEQ/SW 100 ML 100 ML 50 MEQ IVPB (17:50)
[2024-11-18] MEDS: SODIUM CHLORIDE 0.9% IV 1,000 ML 999 ML IV CONT (17:52)
[2024-11-18 18:32] LABS: Lactic Acid Reflex 0.9 mmol/L (0.7-2.0)
--- NOTE | 2024-11-18 18:55 | ADMGEN ---
This patient, Hayden Estrella, was admitted to [facility] Surg Room 327-01. Patient/family oriented to hospital policies and general routines including ID bracelet, bed and alarms, visiting hours, pain management, procedures, bathroom and other care routines, personal items, smoking policy, room service/diet, and visiting hours. Information on how to activate the Rapid Response Team has been discussed. Patient/Family are encouraged to report perceived risks to care and to ask questions if they do not understand what they are told or what they should do.
[2024-11-18] MEDS: PIPERACILLN/TAZ 3.375GM/NS50ML 3.375 GM/50 ML BAG IVPB (19:43)
[2024-11-18] MEDS: SODIUM CHLORIDE 0.9% IV 1,000 ML 125 ML IV CONT (19:43)
--- NOTE | 2024-11-18 20:49 | PM.IMHP ---
H&P: HPI History of Present Illness Date/Time: 11/18/24 20:49 Chief Complaint: 1. Nausea 2. Vomiting Narrative: Hayden Estrella is a 68 yo F with a mHx significant for obesity, breast Ca, Cervical Ca, Colon Ca, hypertension, dyslipidemia. 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 She denies hematemesis, fevers, chills, rigors, dizziness, chest pain, flank pain or LOC. She does not smoke/chew tobacco, drink alcohol or consume recreational/illicit drugs. She resides with her ; she does not use assist devices for ambulation at baseline. Work-up findings: CTAP: 1. Mild pulmonary edema. 2. 18 mm liver mass suspicious for abscess or metastatic disease. 3. Cholelithiasis. Gallbladder distention may be secondary to fasting. 4. Mild mediastinal lymphadenopathy, likely reactive. WBC 14 Hb 12.5 PLT 305 Na 132 K 2.9 Cl 88 CO2 32 AG 12 BUN 14 Cr 0.66 GFR 69 GFR >60 LA 0.9 T. 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 Otero History of total abdominal hysterectomy History of lumpectomy of left breast Family History Family History Sibling Lung cancer COVID Diabetes mellitus Father Leukemia Mother Heart trouble Social History Social History Smoking status: Never smoker Second hand tobacco smoke exposure: No Alcohol intake: never Substance use: never Do You Feel Safe in your Home?: Yes Lack of Transportation: No Lack of Food: Never True Current Housing: I Have Housing Concerned About Future Housing: No Difficulty Paying Gas/Electric Bills: No Difficulty Paying for Meds: No Currently Unemployed: No Education: High School Diploma/GED Difficulty w/ Childcare or Family Care: No Spiritual care concerns: No Meds Home Medications and Allergies Home Medications ?Medication ?Instructions ?Recorded ?Confirmed ?Type amlodipine 5 mg tablet 5 mg PO DAILY 10/15/24 11/18/24 History aspirin 81 mg chewable tablet 81 mg PO DAILY 10/15/24 11/18/24 History ezetimibe 10 mg tablet 10 mg PO DAILY 10/15/24 11/18/24 History metoprolol succinate 50 mg 50 mg PO Q12H 10/15/24 11/18/24 History tablet,extended release 24 hr pravastatin 40 mg tablet 40 mg PO DAILY 10/15/24 11/18/24 History metoclopramide HCl 10 mg tablet 10 mg PO Q6H PRN nausea and 11/13/24 11/18/24 Rx (Reglan) vomiting #30 tabs Allergies Allergy/AdvReac Type Severity Reaction Status Date / Time No Known Allergies Allergy Verified 11/18/24 15:34 Vital Signs Vital Signs - 24 hr 11/18/24 12:04 11/18/24 13:57 11/18/24 16:15 Temperature 98.1 F Pulse Rate 109 H 105 H 112 H Respiratory Rate 16 14 20 Blood Pressure 147/78 H 129/71 162/85 H Pulse Oximetry 93 94 100 Oxygen Delivery Room Air Room Air 11/18/24 16:45 11/18/24 17:15 11/18/24 17:45 Temperature Pulse Rate 96 95 103 H Respiratory Rate 16 18 24 H Blood Pressure 144/64 H 152/56 H 143/55 H Pulse Oximetry 98 97 98 Oxygen Delivery 11/18/24 18:15 11/18/24 18:45 Temperature Pulse Rate 107 H 94 Respiratory Rate 18 18 Blood Pressure 147/54 H 137/48 L Pulse Oximetry 96 97 Oxygen Delivery Exam Const: General: comfortable HENMT: Ears: TM's normal bilaterally Face/Nose/Sinus: Normal nares present Mouth: Yes moist mucous membranes Eyes: Sclera: abnormal sclerae Pupils: Equal, round and reactive pupils present EOM: EOMs intact bilaterally Neck: Neck: supple Resp: Effort & Inspection: normal respiratory effort Auscultation: rales bilateral at the base Cardio: Rate: regular rate GI: GI Palp: Yes Soft to palpation and No Guarding due to palpation present (GI) Auscultation: normal bowel sounds Skin: General skin exam: No normal color (mildly icteric) Neuro: Speech: normal speech Motor exam (neuro): 5/5 motor strength present throughout, Normal motor muscle tone present throughout and strength normal Extrem: General: normal to inspection Psych: Mental Status: mental status grossly normal H&P: Results Labs Labs: Short CBC 11/18/24 Range/Units 15:32 WBC 14.9 H (4.5-10.0) K/mm3 Hgb 12.5 D (12.0-15.0) g/dL Hct 38.6 (37.0-47.0) % Plt Count 305 (150-375) k/mm3 BMP 11/18/24 15:32 Sodium 132 L Potassium 2.9 L Chloride 88 L Carbon Dioxide 32 H BUN 14 Creatinine 0.66 L Glucose 204 H Calcium 9.3 Liver Function 11/18/24 Range/Units 15:32 Total Bilirubin 4.0 H (0.2-1.3) mg/dL AST 102 H (14-36) U/L ALT 83 H (6-35) U/L Alkaline Phosphatase 216 H (38-126) U/L Albumin 4.2 (3.5-5.1) g/dL Urine 11/18/24 Range/Units 16:12 Urine Color Dark yellow (Yellow) Urine Appearance Turbid H (Clear) Urine pH 5.5 (5.0-9.0) Ur Specific [place] 1.022 (1.001-1.035) Urine Protein 2+ H (Negative) mg/dL Urine Glucose (UA) Negative (Negative) mg/dL Assessment and Plan Assessment and plan (1) Hyponatremia: Code(s): E87.1 - Hypo-osmolality and hyponatremia Status: Acute (2) Cholestatic hepatitis: Code(s): K75.89 - Other specified inflammatory liver diseases Status: Acute (3) Hypertension: Code(s): I10 - Essential (primary) hypertension Status: Chronic (4) Hyperlipidemia: Code(s): E78.5 - Hyperlipidemia, unspecified Status: Chronic (5) Ileostomy in place: Code(s): Z93.2 - Ileostomy status Status: Acute Plan Acute and principal conditions 1. Cholestatic hepatitis. 2. Probable metastatic liver disease/ Probable liver abscess 3. Hypokalemia. Poor PO intake 4. Hyponatremia. Poor PO intake 5. Intractable Nausea and vomiting. Rx: A. IVFs; NPO; Anti-emetics B. blood cultures C. IV zosyn D. Replete and monitor Na and K E. BNP, sOSM F. GI consulted; GS consult Chronic and stable conditions. 1. Hypertension. On Amlodipine 2. Dyslipidemia. on Atorvastatin. Will hold 3. Obesity. BMI 36 4. Hx of skin Ca 5. Hx of Breast Ca. s/p XRT, lumpectomy 6. Hx of colon Ca. s/p resection, ostomy and Port-placement. Rx to begin at [place], [place] Miscellaneous care. 1. Code status. Full 2. Nutrition. NPO 3. VTE prophylaxis. SCDs; [facility] Hospitalist MIPS Advance Care Plan I have confirmed that the patient's Advanced Care Plan is present, code status is documented, or surrogate decision maker is listed in patient medical record.: Yes Medication Reconciliation I have utilized all available resources to obtain, update and review the patients current medications (includes all prescriptions, OTC, herbals, cannabis, and nutritional supplements).: Yes The patient is not eligible for med reconciliation; the patient is in a emergent medical situation where delaying treatment would jeopardize the patients health.: Yes
[2024-11-18] MEDS: HEPARIN SODIUM 5,000 UNITS/ML VIAL 5000 UNITS SUB-Q (21:21)
[2024-11-18] MEDS: SODIUM CHLORIDE 0.9% IV 1,000 ML 100 ML IV CONT (21:25)
[2024-11-18 21:43] LABS: Anion Gap 11 mmol/L (4-12); Blood Urea Nitrogen 14 mg/dL (7-17); Calcium 8.5 mg/dL (8.4-10.2); Carbon Dioxide 32 mmol/L (22-30); Chloride 91 mmol/L (98-107); Estimated CRCL calculation 75 ml/min; Estimated Glomerular Filt Rate > 60; Glucose 196 mg/dL (65-110); Potassium 2.9 mmol/L (3.4-5.0); Sodium 134 mmol/L (137-145)
[2024-11-18] MEDS: POTASSIUM CHLORIDE INJ 40 MEQ in SODIUM CHLORIDE 0.9% IV 500 ML 130 MEQ IVPB (22:00)
[2024-11-18 22:44] LABS: NT Pro B Type Natriuretic Pept 168 pg/mL (19.9-100)
[2024-11-19] VITALS (8 sets, daily range): BP systolic 147–153; BP diastolic 66–82; PULSE 89–989; RESP 13–16; TEMP 36.3–36.6; O2SAT 92–95; BMI 36.6
[2024-11-19] MEDS: PIPERACILLN/TAZ 3.375GM/NS50ML 3.375 GM/50 ML BAG IVPB ×5 (00:24→23:40)
[2024-11-19] MEDS: POTASSIUM CHLORIDE INJ 40 MEQ in SODIUM CHLORIDE 0.9% IV 500 ML 130 MEQ IVPB (02:45)
[2024-11-19] MEDS: PROCHLORPERAZINE EDISYLATE 10 MG/2 ML VIAL IV PUSH ×2 (03:04→20:49)
--- NOTE | 2024-11-19 08:31 | P.PNIM_ITS ---
Progress Note: A&P Assessment and Plan (1) Hyponatremia: Code(s): E87.1 - Hypo-osmolality and hyponatremia Status: Acute Assessment and Plan: ## r/t nausea, vomiting --> trend labs, --> replete as needed (2) Cholestatic hepatitis: Code(s): K75.89 - Other specified inflammatory liver diseases Status: Acute Assessment and Plan: ## IVFs; NPO; Anti-emetics - trend labs - cmp-cbc- blood cultures --> IV zosyn --> GI consulted; GS consult (3) Hypertension: Code(s): I10 - Essential (primary) hypertension Status: Chronic Assessment and Plan: Continue home medications (4) Hyperlipidemia: Code(s): E78.5 - Hyperlipidemia, unspecified Status: Chronic Assessment and Plan: Continue medications (5) Ileostomy in place: Code(s): Z93.2 - Ileostomy status Status: Acute Assessment and Plan: ## Hx of colon Ca. s/p resection, ostomy and Port-placement. Rx to begin at [place], [place] Stable -draining liquid stool Plan Hx of colon Ca. s/p resection, ostomy and Port-placement. Rx to begin at [place], [place] on the 12/09/2024 M Code status. Full Nutrition. NPO VTE prophylaxis. SCDs; [facility] Time Spent With Patient Time with patient: Greater than 35 minutes (45 minutes) Subjective Date/time seen: 11/19/24 08:31 Interval history: This is a 68-year-old female with medical history of obesity, breast cancer, cervical cancer, colon cancer with hypertension dyslipidemia. She reports today that she is doing okay, she is tired, and wants to drink water this morning. Patient is NPO due to potential for GI/surgical consultation today. Patient reports no active vomiting, she does have some upper abdominal pain, and nausea. Denies any diarrhea. Denies any fever chills, denies any melena, hemoptysis, LOC, comfort distress. Review of Systems Review of Systems: All systems reviewed & are unremarkable except as noted in HPI and below Exam Const: General: comfortable and no acute distress HENMT: Head: normal to inspection and normocephalic Ears: TM's normal bilaterally Face/Nose/Sinus: Normal nares present Mouth: Yes moist mucous membranes Eyes: General: appearance normal, both eyes and all related structures Sclera: abnormal sclerae Pupils: Equal, round and reactive pupils present EOM: EOMs intact bilaterally Neck: Neck: full ROM, no lymphadenopathy and supple Chest: Chest palpation & inspection: normal inspection of the chest Resp: Effort & Inspection: normal respiratory effort Auscultation: rales bilateral at the base Cardio: Rate: regular rate Rhythm: regular rhythm Heart sounds: S1 normal heart sound present and S2 normal heart sound present Peripheral pulses: Peripheral pulses 2+ throughout GI: Inspection: distended and other (right lower ileostomy intact, draining liquid stool ) GI Palp: Yes abdominal tenderness Auscultation: Hypoactive bowel sounds present Skin: General skin exam: normal color (mildly icteric) and no rashes or lesions noted Neuro: General: patient oriented x3, tone normal and moves all extremities Cranial nerves: Yes Equal, round and reactive pupils present Speech: normal speech Motor exam (neuro): 5/5 motor strength present throughout, Normal motor muscle tone present throughout and strength normal Extrem: General: normal to inspection and full ROM Psych: Appearance: grossly normal Mental Status: mental status grossly normal Objective Data Vital Signs Vital Signs: Vital Signs - 24 hr 11/18/24 12:04 11/18/24 13:57 11/18/24 16:15 Temperature 98.1 F Pulse Rate 109 H 105 H 112 H Respiratory Rate 16 14 20 Blood Pressure 147/78 H 129/71 162/85 H Pulse Oximetry 93 94 100 Oxygen Delivery Room Air Room Air 11/18/24 16:45 11/18/24 17:15 11/18/24 17:45 Temperature Pulse Rate 96 95 103 H Respiratory Rate 16 18 24 H Blood Pressure 144/64 H 152/56 H 143/55 H Pulse Oximetry 98 97 98 Oxygen Delivery 11/18/24 18:15 11/18/24 18:45 11/18/24 20:00 Temperature Pulse Rate 107 H 94 93 Respiratory Rate 18 18 Blood Pressure 147/54 H 137/48 L Pulse Oximetry 96 97 Oxygen Delivery 11/18/24 21:00 11/19/24 00:00 11/19/24 04:00 Temperature 97.4 F L Pulse Rate 93 93 98 Respiratory Rate 14 Blood Pressure 159/77 H Pulse Oximetry 98 Oxygen Delivery 11/19/24 05:39 Temperature 97.4 F L Pulse Rate 99 Respiratory Rate 13 Blood Pressure 149/75 H Pulse Oximetry 92 Oxygen Delivery Intake/Output Intake/Output: Intake & Output 11/16/24 11/17/24 11/18/24 11/19/24 23:59 23:59 23:59 23:59 Intake Total 1140 Balance 1140 Meds/Results Medications: Active Medications Generic Name Dose Route Start Last Admin Trade Name Freq PRN Reason Stop Dose Admin Acetaminophen 650 mg 11/18/24 20:47 Acetaminophen 325 Mg Tablet PO Q4H PRN Mild Pain (1-3) or Fever Guaifenesin/Dextromethorphan 10 ml 11/18/24 20:47 Guaifenesin/Dextromethorphan 10 Ml Udc PO Q4H PRN Cough Heparin Sodium (Porcine) 5,000 units 11/18/24 21:00 11/18/24 21:21 Heparin Sodium 5,000 Units/Ml Vial SUB-Q 5,000 units Q12HR FLORINDA Administration Piperacillin/Tazobactam/Dextrose 3.375 gm in 50 mls @ 100 mls/hr 11/19/24 00:00 11/19/24 07:04 Zosyn 3.375 Gm/Ns 50 Ml IVPB Infused Q6H FLORINDA Infusion Sodium Chloride 1,000 mls @ 100 mls/hr 11/18/24 20:50 11/18/24 21:25 Normal Saline Iv IV CONT 100 mls/hr .Q10H FLORINDA Administration Melatonin 5 mg 11/18/24 20:47 Melatonin 5 Mg Tablet PO HS PRN Insomnia Morphine Sulfate 2 mg 11/18/24 17:22 Morphine Sulfate (*Crx) 2 Mg/Ml Inj IV PUSH Q2H PRN Pain Rated 7-10 Prochlorperazine Edisylate 10 mg 11/18/24 20:47 11/19/24 03:04 Prochlorperazine Edisylate 10 Mg/2 Ml Vial IV PUSH 10 mg Q6H PRN Administration Nausea And Vomiting Radiology Results: ITS Impressions Chest CT 11/18/24 14:58 IMPRESSION: 1. Mild pulmonary edema. 2. 18 mm liver mass suspicious for abscess or metastatic disease. 3. Cholelithiasis. Gallbladder distention may be secondary to fasting. 4. Mild mediastinal lymphadenopathy, likely reactive. Labs Labs: Laboratory Results - last 24 hr 11/18/24 11/18/24 11/18/24 15:32 15:44 16:12 WBC 14.9 H RBC 4.53 Hgb 12.5 D Hct 38.6 MCV 85.2 MCH 27.6 MCHC 32.4 RDW 14.2 Plt Count 305 MPV 10.3 Immature Gran % (Auto) 0.6 H Neut % (Auto) 83.3 H Lymph % (Auto) 7.9 L [place] % (Auto) 7.2 Eos % (Auto) 0.7 Baso % (Auto) 0.3 Lymph # (Auto) 1.17 [place] # (Auto) 1.1 H Eos # (Auto) 0.1 Baso # (Auto) 0.0 Abs Immat Gran (auto) 0.09 H Absolute Neuts (auto) 12.4 H Absolute Nucleated RBC 0.000 Nucleated RBC % 0.0 Sodium 132 L Potassium 2.9 L Chloride 88 L Carbon Dioxide 32 H Anion Gap 12 BUN 14 Creatinine 0.66 L Estim Creat Clear Calc 69 Estimated GFR > 60 Glucose 204 H Lactic Acid Calcium 9.3 Total Bilirubin 4.0 H AST 102 H ALT 83 H Alkaline Phosphatase 216 H C-Reactive Protein 13.9 H NT-Pro-B Natriuret Pep Total Protein 8.0 Albumin 4.2 Lipase 344 H Urine Color Dark yellow Urine Appearance Turbid H Urine pH 5.5 Ur Specific [place] 1.022 Urine Protein 2+ H Urine Glucose (UA) Negative Urine Ketones Negative Ur Blood (Man) Negative Urine Nitrate Positive H Urine Bilirubin 3+ H Urine Urobilinogen 1.0 Add Ur Microanalysis Reviewed Leukocyte Esterase Rfl 1+ H Urine RBC 51-100 H Urine WBC 0-5 Ur Squamous Epith Cells Moderate Urine Bacteria None seen Urine Casts >20 Urine Mucus Present Urine Yeast (Budding) Present H Influenza A (RT-PCR) Negative Influenza B (RT-PCR) Negative RSV (RT-PCR) Negative SARS-CoV-2 RNA (RT-PCR) Negative 11/18/24 11/18/24 18:15 21:20 WBC RBC Hgb Hct MCV MCH MCHC RDW Plt Count MPV Immature Gran % (Auto) Neut % (Auto) Lymph % (Auto) [place] % (Auto) Eos % (Auto) Baso % (Auto) Lymph # (Auto) [place] # (Auto) Eos # (Auto) Baso # (Auto) Abs Immat Gran (auto) Absolute Neuts (auto) Absolute Nucleated RBC Nucleated RBC % Sodium 134 L Potassium 2.9 L Chloride 91 L Carbon Dioxide 32 H Anion Gap 11 BUN 14 Creatinine 0.62 L Estim Creat Clear Calc 75 Estimated GFR > 60 Glucose 196 H Lactic Acid 0.9 Calcium 8.5 Total Bilirubin AST ALT Alkaline Phosphatase C-Reactive Protein NT-Pro-B Natriuret Pep 168 H Total Protein Albumin Lipase Urine Color Urine Appearance Urine pH Ur Specific [place] Urine Protein Urine Glucose (UA) Urine Ketones Ur Blood (Man) Urine Nitrate Urine Bilirubin Urine Urobilinogen Add Ur Microanalysis Leukocyte Esterase Rfl Urine RBC Urine WBC Ur Squamous Epith Cells Urine Bacteria Urine Casts Urine Mucus Urine Yeast (Budding) Influenza A (RT-PCR) Influenza B (RT-PCR) RSV (RT-PCR) SARS-CoV-2 RNA (RT-PCR)
[2024-11-19] MEDS: HEPARIN SODIUM 5,000 UNITS/ML VIAL 5000 UNITS SUB-Q ×2 (09:21→20:54)
[2024-11-19] MEDS: KCL 20 MEQ/0.45% NS 1,000 ML 100 ML IV CONT ×2 (09:21→21:01)
[2024-11-19 10:04] LABS: Basophils Percent Auto 0.2 % (0.2-1.2); Eosinophils Percent Auto 0.2 % (0-4.4); Hematocrit 35.9 % (37.0-47.0); Hemoglobin 10.7 g/dL (12.0-15.0); Immature Granulocyte Absolute 0.05 K/mm3 (0.00-0.031); Immature Granulocyte Percent A 0.5 % (0-0.5); Lymphocytes Percent Auto 7.3 % (18.3-44.2); Mean Corpuscular HGB Conc 29.8 g/dl (32-36); Mean Corpuscular Hemoglobin 26.8 pg (26-34); Mean Corpuscular Volume 89.8 fl (80-100); Mean Platelet Volume 10.7 fl (7.4-10.4); Monocytes Absolute Auto 0.6 K/mm3 (0.1-0.6); Monocytes Percent Auto 5.4 % (2.6-8.5); Neutrophils Absolute Auto 9.5 K/mm3 (1.3-6.7); Neutrophils Percent Auto 86.4 % (45.5-73.1); Platelet Count Result 233 k/mm3 (150-375); Red Cell Distribution Width 14.4 % (11.5-14.5); White Blood Count 10.9 K/mm3 (4.5-10.0)
[2024-11-19 10:13] LABS: Alanine Aminotransferase 76 U/L (6-35); Albumin Level 3.3 g/dL (3.5-5.1); Alkaline Phosphatase 200 U/L (38-126); Anion Gap 9 mmol/L (4-12); Aspartate Amino Transferase 95 U/L (14-36); Bilirubin,Total 3.8 mg/dL (0.2-1.3); Blood Urea Nitrogen 16 mg/dL (7-17); Calcium 8.2 mg/dL (8.4-10.2); Carbon Dioxide 29 mmol/L (22-30); Chloride 101 mmol/L (98-107); Estimated CRCL calculation 72 ml/min; Estimated Glomerular Filt Rate > 60; Glucose 193 mg/dL (65-110); Potassium 3.9 mmol/L (3.4-5.0); Sodium 139 mmol/L (137-145)
[2024-11-19 11:02] LABS: Burr Cells 1+; Hypochromasia 1+; Platelet Estimate Adequate (Adequate); Schistocytes None Seen
--- NOTE | 2024-11-19 14:08 | PM.CNGS ---
Assessment and Plan Assessment and plan (1) Cholelithiasis: Qualifiers: Cholelithiasis location: gallbladder Cholecystitis presence: without cholecystitis Biliary obstruction: without biliary obstruction Qualified Code(s): K80.20 - Calculus of gallbladder without cholecystitis without obstruction Code(s): K80.20 - Calculus of gallbladder without cholecystitis without obstruction Status: Acute Assessment and Plan: I reviewed the CT and discussed the findings with the patient. She is not having any abdominal pain but does have nausea without any specific types of food triggering this. This does not appear likely to be related to cholelithiasis or cholecystitis. Her liver enzymes elevated which could be secondary to a biliary obstruction. Agree with getting MRCP to further evaluate. She would not be a very good surgical candidate it given her current situation with metastatic colon cancer and needing to initiate treatment for this. Any surgical intervention would delay starting chemotherapy by a minimum of a couple weeks. Would consider percutaneous cholecystostomy tube if intervention is needed. Will continue to follow along with patient and discuss further treatment options based on MRCP results. 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 She presented to the emergency department overnight with nausea and vomiting. Her main complaint in the ED last night was fatigue and weakness along with nausea. She also was experiencing coughing when laying flat. On workup in the emergency department she was noted to elevated liver enzymes which was a new finding. She also had a CT chest which showed pulmonary edema, cholelithiasis, possible hepatic metastasis, and mild mediastinal lymphadenopathy. Patient has a known recent finding of metastatic colon cancer with carcinomatosis. She has a loop ileostomy that was recently placed and has been functioning well. She currently is in the process of going up to the [facility] to be evaluated. She has not started any chemotherapy yet. The patient is denying any abdominal pain. She has not identified any particular foods that are causing the nausea. Review of Systems Review of Systems: All systems reviewed & are unremarkable except as noted in HPI and below Eyes: Eyes: Denies change in vision ENT: Denies hearing loss, Denies neck pain and Denies sore throat Cardiovascular: Cardiovascular: Denies chest pain and Denies dyspnea Respiratory: Respiratory: Denies cough, Denies dyspnea and Denies wheezing Gastrointestinal: Gastrointestinal: Reports as per HPI Genitourinary: Genitourinary: Denies hematuria and Denies dysuria Musculoskeletal: Musculoskeletal: Denies arthralgias, Denies joint swelling and Denies neck pain Allergic/Immunologic: Allergic/Immunologic: Denies wheezing [facility] Past Medical History Medical History Lactic acidosis Dysphagia 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 Otero History of total abdominal hysterectomy History of lumpectomy of left breast Family History Family History Sibling Lung cancer COVID Diabetes mellitus Father Leukemia Mother Heart trouble Social History Social History Smoking status: Never smoker Second hand tobacco smoke exposure: No Alcohol intake: never Substance use: never Do You Feel Safe in your Home?: Yes Lack of Transportation: No Lack of Food: Never True Current Housing: I Have Housing Concerned About Future Housing: No Difficulty Paying Gas/Electric Bills: No Difficulty Paying for Meds: No Currently Unemployed: No Education: High School Diploma/GED Difficulty w/ Childcare or Family Care: No Spiritual care concerns: No Meds Home Medications and Allergies Home Medications ?Medication ?Instructions ?Recorded ?Confirmed ?Type amlodipine 5 mg tablet 5 mg PO DAILY 10/15/24 11/18/24 History aspirin 81 mg chewable tablet 81 mg PO DAILY 10/15/24 11/18/24 History ezetimibe 10 mg tablet 10 mg PO DAILY 10/15/24 11/18/24 History metoprolol succinate 50 mg 50 mg PO Q12H 10/15/24 11/18/24 History tablet,extended release 24 hr pravastatin 40 mg tablet 40 mg PO DAILY 10/15/24 11/18/24 History metoclopramide HCl 10 mg tablet 10 mg PO Q6H PRN nausea and 11/13/24 11/18/24 Rx (Reglan) vomiting #30 tabs Allergies Allergy/AdvReac Type Severity Reaction Status Date / Time No Known Allergies Allergy Verified 11/18/24 15:34 Vital Signs Vital Signs - 24 hr 11/18/24 16:15 11/18/24 16:45 11/18/24 17:15 Temperature Pulse Rate 112 H 96 95 Respiratory Rate 20 16 18 Blood Pressure 162/85 H 144/64 H 152/56 H Pulse Oximetry 100 98 97 Oxygen Delivery 11/18/24 17:45 11/18/24 18:15 11/18/24 18:45 Temperature Pulse Rate 103 H 107 H 94 Respiratory Rate 24 H 18 18 Blood Pressure 143/55 H 147/54 H 137/48 L Pulse Oximetry 98 96 97 Oxygen Delivery 11/18/24 20:00 11/18/24 21:00 11/19/24 00:00 Temperature 97.4 F L Pulse Rate 93 93 93 Respiratory Rate 14 Blood Pressure 159/77 H Pulse Oximetry 98 Oxygen Delivery 11/19/24 04:00 11/19/24 05:39 11/19/24 08:00 Temperature 97.4 F L Pulse Rate 98 99 Respiratory Rate 13 Blood Pressure 149/75 H Pulse Oximetry 92 Oxygen Delivery Room Air 11/19/24 08:00 11/19/24 12:00 11/19/24 13:38 Temperature 97.5 F L Pulse Rate 89 115 H 94 Respiratory Rate 16 Blood Pressure 147/82 H Pulse Oximetry 95 Oxygen Delivery Exam Const: General: alert; No acute distress Orientation/consciousness: patient oriented x3 Limitations: no limitations HENMT: Head: normocephalic and atraumatic Ears: hearing grossly normal bilaterally Face/Nose/Sinus: Normal external nose present and Normal nares present Mouth: Yes Normal oral and palatal mucosa present and Yes moist mucous membranes Eyes: General: appearance normal, both eyes and all related structures Conjunctivae: conjunctivae normal Sclera: sclerae normal Pupils: Equal, round and reactive pupils present EOM: EOMs intact bilaterally Neck: Neck: normal visual inspection, full ROM, no lymphadenopathy, supple and no JVD Lymphatic: no lymphadenopathy noted Chest: Chest palpation & inspection: normal inspection of the chest Resp: Effort & Inspection: normal respiratory effort and able to speak in complete sentences Auscultation: clear to auscultation bilaterally Percussion: percussion normal Cardio: Jugular venous distension: no JVD Rate: regular rate Rhythm: regular rhythm Heart sounds: S1 normal heart sound present and S2 normal heart sound present Peripheral pulses: Peripheral pulses 2+ throughout GI: Inspection: non-distended and other (Right lower quadrant loop ileostomy in place) GI Palp: Yes Soft to palpation, No Tenderness to palpation present (GI), No Guarding due to palpation present (GI) and No Rebound tenderness present Percussion: Yes normal to percussion Auscultation: normal bowel sounds Other: Ileostomy patent and functioning : General: Yes no CVA tenderness Back/Spine/Pelvis: Back: no CVA tenderness Skin: General skin exam: normal color and dry skin Neuro: General: patient oriented x3, gait normal, moves all extremities, no focal motor deficits and CN's II-XI intact bilaterally Cranial nerves: Yes Equal, round and reactive pupils present Speech: normal speech Extrem: General: normal to inspection and capillary refill normal Results Labs 11/19/24 09:57 11/19/24 09:57 Labs: Abnormal lab results 11/18/24 11/18/24 11/18/24 Range/Units 15:32 16:12 21:20 WBC 14.9 H (4.5-10.0) K/mm3 RBC (4.2-5.4) M/mm3 Hgb (12.0-15.0) g/dL Hct (37.0-47.0) % MCHC (32-36) g/dl MPV (7.4-10.4) fl Immature Gran % (Auto) 0.6 H (0-0.5) % Neut % (Auto) 83.3 H (45.5-73.1) % Lymph % (Auto) 7.9 L (18.3-44.2) % Lymph # (Auto) (0.9-3.2) K/mm3 Hardin # (Auto) 1.1 H (0.1-0.6) K/mm3 Abs Immat Gran (auto) 0.09 H (0.00-0.031) K/mm3 Absolute Neuts (auto) 12.4 H (1.3-6.7) K/mm3 Sodium 132 L 134 L (137-145) mmol/L Potassium 2.9 L 2.9 L (3.4-5.0) mmol/L Chloride 88 L 91 L (98-107) mmol/L Carbon Dioxide 32 H 32 H (22-30) mmol/L Creatinine 0.66 L 0.62 L (0.7-1.0) mg/dL Glucose 204 H 196 H (65-110) mg/dL Calcium (8.4-10.2) mg/dL Total Bilirubin 4.0 H (0.2-1.3) mg/dL AST 102 H (14-36) U/L ALT 83 H (6-35) U/L Alkaline Phosphatase 216 H (38-126) U/L C-Reactive Protein 13.9 H (<1.0) mg/dL NT-Pro-B Natriuret Pep 168 H (19.9-100) pg/mL Total Protein (6.3-8.2) g/dL Albumin (3.5-5.1) g/dL Lipase 344 H (23-300) U/L Urine Appearance Turbid H (Clear) Urine Protein 2+ H (Negative) mg/dL Urine Nitrate Positive H (Negative) Urine Bilirubin 3+ H (Negative) Leukocyte Esterase Rfl 1+ H (Negative) JULIAN/UL Urine RBC 51-100 H (0-2) /hpf Urine Yeast (Budding) Present H (None) /hpf 11/19/24 Range/Units 09:57 WBC 10.9 H (4.5-10.0) K/mm3 RBC 4.00 L (4.2-5.4) M/mm3 Hgb 10.7 L (12.0-15.0) g/dL Hct 35.9 L (37.0-47.0) % MCHC 29.8 L (32-36) g/dl MPV 10.7 H (7.4-10.4) fl Immature Gran % (Auto) (0-0.5) % Neut % (Auto) 86.4 H (45.5-73.1) % Lymph % (Auto) 7.3 L (18.3-44.2) % Lymph # (Auto) 0.80 L (0.9-3.2) K/mm3 Hardin # (Auto) (0.1-0.6) K/mm3 Abs Immat Gran (auto) 0.05 H (0.00-0.031) K/mm3 Absolute Neuts (auto) 9.5 H (1.3-6.7) K/mm3 Sodium (137-145) mmol/L Potassium (3.4-5.0) mmol/L Chloride (98-107) mmol/L Carbon Dioxide (22-30) mmol/L Creatinine 0.65 L (0.7-1.0) mg/dL Glucose 193 H (65-110) mg/dL Calcium 8.2 L (8.4-10.2) mg/dL Total Bilirubin 3.8 H (0.2-1.3) mg/dL AST 95 H (14-36) U/L ALT 76 H (6-35) U/L Alkaline Phosphatase 200 H (38-126) U/L C-Reactive Protein (<1.0) mg/dL NT-Pro-B Natriuret Pep (19.9-100) pg/mL Total Protein 6.0 L (6.3-8.2) g/dL Albumin 3.3 L (3.5-5.1) g/dL Lipase (23-300) U/L Urine Appearance (Clear) Urine Protein (Negative) mg/dL Urine Nitrate (Negative) Urine Bilirubin (Negative) Leukocyte Esterase Rfl (Negative) JULIAN/UL Urine RBC (0-2) /hpf Urine Yeast (Budding) (None) /hpf Diabetes panel 11/18/24 11/18/24 11/19/24 Range/Units 15:32 21:20 09:57 Sodium 132 L 134 L 139 (137-145) mmol/L Potassium 2.9 L 2.9 L 3.9 (3.4-5.0) mmol/L Chloride 88 L 91 L 101 (98-107) mmol/L Carbon Dioxide 32 H 32 H 29 (22-30) mmol/L BUN 14 14 16 (7-17) mg/dL Creatinine 0.66 L 0.62 L 0.65 L (0.7-1.0) mg/dL Glucose 204 H 196 H 193 H (65-110) mg/dL Calcium 9.3 8.5 8.2 L (8.4-10.2) mg/dL AST 102 H 95 H (14-36) U/L ALT 83 H 76 H (6-35) U/L Alkaline Phosphatase 216 H 200 H (38-126) U/L Total Protein 8.0 6.0 L (6.3-8.2) g/dL Albumin 4.2 3.3 L (3.5-5.1) g/dL Calcium panel 11/18/24 11/18/24 11/19/24 Range/Units 15:32 21:20 09:57 Calcium 9.3 8.5 8.2 L (8.4-10.2) mg/dL Albumin 4.2 3.3 L (3.5-5.1) g/dL Pituitary panel 11/18/24 11/18/24 11/19/24 Range/Units 15:32 21:20 09:57 Sodium 132 L 134 L 139 (137-145) mmol/L Potassium 2.9 L 2.9 L 3.9 (3.4-5.0) mmol/L Chloride 88 L 91 L 101 (98-107) mmol/L Carbon Dioxide 32 H 32 H 29 (22-30) mmol/L BUN 14 14 16 (7-17) mg/dL Creatinine 0.66 L 0.62 L 0.65 L (0.7-1.0) mg/dL Glucose 204 H 196 H 193 H (65-110) mg/dL Calcium 9.3 8.5 8.2 L (8.4-10.2) mg/dL Adrenal panel 11/18/24 11/18/24 11/19/24 Range/Units 15:32 21:20 09:57 Sodium 132 L 134 L 139 (137-145) mmol/L Potassium 2.9 L 2.9 L 3.9 (3.4-5.0) mmol/L Chloride 88 L 91 L 101 (98-107) mmol/L Carbon Dioxide 32 H 32 H 29 (22-30) mmol/L BUN 14 14 16 (7-17) mg/dL Creatinine 0.66 L 0.62 L 0.65 L (0.7-1.0) mg/dL Glucose 204 H 196 H 193 H (65-110) mg/dL Calcium 9.3 8.5 8.2 L (8.4-10.2) mg/dL Total Bilirubin 4.0 H 3.8 H (0.2-1.3) mg/dL AST 102 H 95 H (14-36) U/L ALT 83 H 76 H (6-35) U/L Alkaline Phosphatase 216 H 200 H (38-126) U/L Total Protein 8.0 6.0 L (6.3-8.2) g/dL Albumin 4.2 3.3 L (3.5-5.1) g/dL All other labs normal. Imaging Additional studies: ITS Impressions Chest CT 11/18/24 14:58 IMPRESSION: 1. Mild pulmonary edema. 2. 18 mm liver mass suspicious for abscess or metastatic disease. 3. Cholelithiasis. Gallbladder distention may be secondary to fasting. 4. Mild mediastinal lymphadenopathy, likely reactive.
--- NOTE | 2024-11-19 16:46 | WPDGICN ---
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: Code(s): C18.9 - Malignant neoplasm of colon, unspecified; C77.2 - Secondary and unspecified malignant neoplasm of intra-abdominal lymph nodes Status: Acute Assessment and Plan: elevated liver enzymes will get MRCP to check if liver lesions from malignancy and rule out if biliary obstruction- surgery also on board prognosis will depend on findings- patient says that she has made an appointment to go to [facility] in [place] in few more weeks she has not started treatment for her cancer will ask oncology for recommendations (2) Abnormal CT of the abdomen: Code(s): R93.5 - Abnormal findings on diagnostic imaging of other abdominal regions, including retroperitoneum Status: Acute (3) Elevated liver enzymes: Code(s): R74.8 - Abnormal levels of other serum enzymes Status: Acute Assessment and Plan: pending mrcp (4) Nausea and vomiting in adult: Code(s): R11.2 - Nausea with vomiting, unspecified Status: Resolved Assessment and Plan: egd negative probably from malignancy GI Consult Note Consult date/time: 11/19/24 16:46 Reason for consult: elevated liver enzymes, n/v, colon cancer HPI: Hayden Estrella is a 68 year old female who is known to me from recent hospitalization. I performed a colonoscopy and found to have a near obstructing transverse colon mass with peritoneal carcinomatosis. She ultimately underwent laparoscopic diverting loop ileostomy, laparoscopic incisional omental biopsy, and placement of right subclavian vein port a catheter on 10/27/[address] Otero. Then readmitted with n/v, EGD no major findings. [facility] is coming back again with ongoing n/v, denies much of abdominal pain. Blood work noted new elevated bilirubin 4, transaminases 90's. She had CT chest- Mild pulmonary edema, 18 mm liver mass suspicious for abscess or metastatic disease. 3. Cholelithiasis. Gallbladder distention may be secondary to fasting, Mild mediastinal lymphadenopathy, likely reactive. I just ordered MRCP. Review of Systems Constitutional: Constitutional: Reports lethargy Eyes: Eyes: Denies blurry vision ENT: Reports Normal hearing present Cardiovascular: Cardiovascular: Denies chest pain Respiratory: Respiratory: Denies dyspnea on exertion Gastrointestinal: Gastrointestinal: Reports nausea and Reports vomiting Genitourinary: Genitourinary: Denies urinary urgency Musculoskeletal: Musculoskeletal: Denies neck pain Integumentary/Breasts: Skin/Breast: Denies rash Neurologic: Denies Abnormal speech present Psychiatric: Psychiatric: Denies behavioral changes [facility] Past Medical History Medical History Lactic acidosis Dysphagia 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 Otero History of total abdominal hysterectomy History of lumpectomy of left breast Family History Family History Sibling Lung cancer COVID Diabetes mellitus Father Leukemia Mother Heart trouble Social History Social History Smoking status: Never smoker Second hand tobacco smoke exposure: No Alcohol intake: never Substance use: never Do You Feel Safe in your Home?: Yes Lack of Transportation: No Lack of Food: Never True Current Housing: I Have Housing Concerned About Future Housing: No Difficulty Paying Gas/Electric Bills: No Difficulty Paying for Meds: No Currently Unemployed: No Education: High School Diploma/GED Difficulty w/ Childcare or Family Care: No Spiritual care concerns: No Meds Home Medications and Allergies Home Medications ?Medication ?Instructions ?Recorded ?Confirmed ?Type amlodipine 5 mg tablet 5 mg PO DAILY 10/15/24 11/18/24 History aspirin 81 mg chewable tablet 81 mg PO DAILY 10/15/24 11/18/24 History ezetimibe 10 mg tablet 10 mg PO DAILY 10/15/24 11/18/24 History metoprolol succinate 50 mg 50 mg PO Q12H 10/15/24 11/18/24 History tablet,extended release 24 hr pravastatin 40 mg tablet 40 mg PO DAILY 10/15/24 11/18/24 History metoclopramide HCl 10 mg tablet 10 mg PO Q6H PRN nausea and 11/13/24 11/18/24 Rx (Reglan) vomiting #30 tabs Allergies Allergy/AdvReac Type Severity Reaction Status Date / Time No Known Allergies Allergy Verified 11/18/24 15:34 Vital Signs Vital Signs - 24 hr 11/18/24 17:15 11/18/24 17:45 11/18/24 18:15 Temperature Pulse Rate 95 103 H 107 H Respiratory Rate 18 24 H 18 Blood Pressure 152/56 H 143/55 H 147/54 H Pulse Oximetry 97 98 96 Oxygen Delivery 11/18/24 18:45 11/18/24 20:00 11/18/24 21:00 Temperature 97.4 F L Pulse Rate 94 93 93 Respiratory Rate 18 14 Blood Pressure 137/48 L 159/77 H Pulse Oximetry 97 98 Oxygen Delivery 11/19/24 00:00 11/19/24 04:00 11/19/24 05:39 Temperature 97.4 F L Pulse Rate 93 98 99 Respiratory Rate 13 Blood Pressure 149/75 H Pulse Oximetry 92 Oxygen Delivery 11/19/24 08:00 11/19/24 08:00 11/19/24 12:00 Temperature Pulse Rate 89 115 H Respiratory Rate Blood Pressure Pulse Oximetry Oxygen Delivery Room Air 11/19/24 13:38 11/19/24 16:00 Temperature 97.5 F L Pulse Rate 94 109 H Respiratory Rate 16 Blood Pressure 147/82 H Pulse Oximetry 95 Oxygen Delivery Exam Const: General: alert; No acute distress Orientation/consciousness: patient oriented x3 Limitations: no limitations HENMT: Head: normocephalic and atraumatic Ears: hearing grossly normal bilaterally Face/Nose/Sinus: Normal external nose present and Normal nares present Mouth: Yes Normal oral and palatal mucosa present and Yes moist mucous membranes Eyes: General: appearance normal, both eyes and all related structures Conjunctivae: conjunctivae normal Neck: Neck: normal visual inspection, full ROM and supple Chest: Chest palpation & inspection: normal inspection of the chest Resp: Effort & Inspection: normal respiratory effort and able to speak in complete sentences Auscultation: clear to auscultation bilaterally Percussion: percussion normal Cardio: Rate: regular rate Rhythm: regular rhythm GI: Inspection: non-distended and other (Right lower quadrant loop ileostomy in place) GI Palp: Yes Soft to palpation, No Tenderness to palpation present (GI), No Guarding due to palpation present (GI) and No Rebound tenderness present Percussion: Yes normal to percussion Auscultation: normal bowel sounds Other: Ileostomy patent and functioning : General: Yes no CVA tenderness Back/Spine/Pelvis: Back: no CVA tenderness Skin: General skin exam: normal color and dry skin Neuro: General: patient oriented x3, moves all extremities and no focal motor deficits Speech: normal speech Extrem: General: normal to inspection Results Labs 11/19/24 09:57 11/19/24 09:57 Labs: Short CBC 11/19/24 Range/Units 09:57 WBC 10.9 H (4.5-10.0) K/mm3 Hgb 10.7 L (12.0-15.0) g/dL Hct 35.9 L (37.0-47.0) % Plt Count 233 (150-375) k/mm3 BMP 11/18/24 11/19/24 21:20 09:57 Sodium 134 L 139 Potassium 2.9 L 3.9 Chloride 91 L 101 Carbon Dioxide 32 H 29 BUN 14 16 Creatinine 0.62 L 0.65 L Glucose 196 H 193 H Calcium 8.5 8.2 L Liver Function 11/19/24 Range/Units 09:57 Total Bilirubin 3.8 H (0.2-1.3) mg/dL AST 95 H (14-36) U/L ALT 76 H (6-35) U/L Alkaline Phosphatase 200 H (38-126) U/L Albumin 3.3 L (3.5-5.1) g/dL
--- NOTE | 2024-11-19 19:22 | WPDONCCN ---
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: Code(s): C18.9 - Malignant neoplasm of colon, unspecified; C77.2 - Secondary and unspecified malignant neoplasm of intra-abdominal lymph nodes Status: Acute Plan Metastatic colon cancer with liver metastasis and peritoneal carcinomatosis. Patient is status post diverting ileostomy due to transverse colon stricture done on October 27, 2024. She came into the hospital with nausea vomiting and failure to thrive. CT chest an MRCP finding noted. GI and surgery consult also noted. There is no evidence of biliary obstruction based on the MRCP. Gallbladder was distended could be secondary to fasting or acute cholecystitis. We will wait for surgery and GI recommendations regarding the management. She need to start chemotherapy as soon as possible but on the can tolerate if she can tolerate the oral food intake prior to initiation of chemotherapy. She will follow-up in the office to initiate chemotherapy. HPI Data of Consult Date/Time: 11/19/24 19:22 Requesting Physician: Bakari Del Real MD Primary Care Provider: Emperatriz OliviaMD Consult Narrative Narrative: Hayden Estrella is a 68 year old female with history of cervical cancer and left-sided breast cancer was admitted to the hospital on October 21 with abdominal pain nausea vomiting and diarrhea. CT scan at that time showed stricture in the transverse colon with nodularity of the peritoneum in the abdomen suspicious for peritoneal carcinomatosis. Colonoscopy and biopsy done on October 23 showed undifferentiated carcinoma in the transverse colon. Patient now came back into the hospital with abdominal pain nausea and vomiting. She was recently at the on November 03 with sepsis along with nausea and vomiting. Patient had laparoscopic diverting loop ileostomy done on October 27, 2024 due to transverse colon obstruction secondary to colon cancer. She also had MediPort placed at that time. CT abdomen done on November 03 showed cholelithiasis along with 7.2 x 7.1 cm hematoma in the subcutaneous soft tissue at stony site. There was a stable focal wall thickening and inflammatory change along with carcinomatosis at the hepatic flexure of the colon. CT chest done on November 18 showed 18 mm liver mass suspicious for abscess or metastatic mild mediastinal lymphadenopathy likely reactive. MRCP done today showed multiple liver masses with wall thickening of the hepatic flexure of the colon with peritoneal nodularity cholelithiasis with gallbladder distention may be secondary to fasting or acute cholecystitis. Patient has been having difficulty eating with nausea and not able to keep the food down. She is quite tired and fatigued. Review of Systems Review of Systems: Review of system as per HPI otherwise negative [facility] Past Medical History Medical History Lactic acidosis Dysphagia 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 Otero History of total abdominal hysterectomy History of lumpectomy of left breast Family History Family History Sibling Lung cancer COVID Diabetes mellitus Father Leukemia Mother Heart trouble Social History Social History Smoking status: Never smoker Second hand tobacco smoke exposure: No Alcohol intake: never Substance use: never Do You Feel Safe in your Home?: Yes Lack of Transportation: No Lack of Food: Never True Current Housing: I Have Housing Concerned About Future Housing: No Difficulty Paying Gas/Electric Bills: No Difficulty Paying for Meds: No Currently Unemployed: No Education: High School Diploma/GED Difficulty w/ Childcare or Family Care: No Spiritual care concerns: No Meds Home Medications and Allergies Home Medications ?Medication ?Instructions ?Recorded ?Confirmed ?Type amlodipine 5 mg tablet 5 mg PO DAILY 10/15/24 11/18/24 History aspirin 81 mg chewable tablet 81 mg PO DAILY 10/15/24 11/18/24 History ezetimibe 10 mg tablet 10 mg PO DAILY 10/15/24 11/18/24 History metoprolol succinate 50 mg 50 mg PO Q12H 10/15/24 11/18/24 History tablet,extended release 24 hr pravastatin 40 mg tablet 40 mg PO DAILY 10/15/24 11/18/24 History metoclopramide HCl 10 mg tablet 10 mg PO Q6H PRN nausea and 11/13/24 11/18/24 Rx (Reglan) vomiting #30 tabs Allergies Allergy/AdvReac Type Severity Reaction Status Date / Time No Known Allergies Allergy Verified 11/18/24 15:34 Vital Signs Vital Signs - 24 hr 11/18/24 20:00 11/18/24 21:00 11/19/24 00:00 Temperature 36.3 C L Pulse Rate 93 93 93 Respiratory Rate 14 Blood Pressure 159/77 H Pulse Oximetry 98 Oxygen Delivery 11/19/24 04:00 11/19/24 05:39 11/19/24 08:00 Temperature 36.3 C L Pulse Rate 98 99 Respiratory Rate 13 Blood Pressure 149/75 H Pulse Oximetry 92 Oxygen Delivery Room Air 11/19/24 08:00 11/19/24 12:00 11/19/24 13:38 Temperature 36.4 C L Pulse Rate 89 115 H 94 Respiratory Rate 16 Blood Pressure 147/82 H Pulse Oximetry 95 Oxygen Delivery 11/19/24 16:00 Temperature Pulse Rate 109 H Respiratory Rate Blood Pressure Pulse Oximetry Oxygen Delivery Exam Narrative: Lungs are clear to auscultation bilaterally Cardiovascular regular rate rhythm Abdomen slightly distended ileostomy site noted no signs of infection Extremities no edema Results Labs 11/19/24 09:57 11/19/24 09:57 Labs: Short CBC 11/19/24 Range/Units 09:57 WBC 10.9 H (4.5-10.0) K/mm3 Hgb 10.7 L (12.0-15.0) g/dL Hct 35.9 L (37.0-47.0) % Plt Count 233 (150-375) k/mm3 BMP 11/18/24 11/19/24 21:20 09:57 Sodium 134 L 139 Potassium 2.9 L 3.9 Chloride 91 L 101 Carbon Dioxide 32 H 29 BUN 14 16 Creatinine 0.62 L 0.65 L Glucose 196 H 193 H Calcium 8.5 8.2 L Liver Function 11/19/24 Range/Units 09:57 Total Bilirubin 3.8 H (0.2-1.3) mg/dL AST 95 H (14-36) U/L ALT 76 H (6-35) U/L Alkaline Phosphatase 200 H (38-126) U/L Albumin 3.3 L (3.5-5.1) g/dL
[2024-11-19] MEDS: MELATONIN 5 MG TABLET PO (20:49)
[2024-11-20] VITALS (11 sets, daily range): BP systolic 151–174; BP diastolic 68–87; PULSE 75–119; RESP 14–16; TEMP 36.4–36.8; O2SAT 92–95
[2024-11-20] MEDS: guaiFENesin/DEXTROMETHORPHAN 10 ML UDC PO ×3 (00:21→17:19)
[2024-11-20] MEDS: PIPERACILLN/TAZ 3.375GM/NS50ML 3.375 GM/50 ML BAG IVPB ×3 (06:02→17:17)
[2024-11-20 06:06] LABS: Basophils Percent Auto 0.2 % (0.2-1.2); Eosinophils Absolute Auto 0.3 K/mm3 (0-0.3); Eosinophils Percent Auto 2.7 % (0-4.4); Hematocrit 35.2 % (37.0-47.0); Hemoglobin 10.7 g/dL (12.0-15.0); Immature Granulocyte Absolute 0.03 K/mm3 (0.00-0.031); Immature Granulocyte Percent A 0.3 % (0-0.5); Lymphocytes Absolute Auto 0.64 K/mm3 (0.9-3.2); Lymphocytes Percent Auto 6.2 % (18.3-44.2); Mean Corpuscular HGB Conc 30.4 g/dl (32-36); Mean Corpuscular Volume 88.7 fl (80-100); Mean Platelet Volume 10.9 fl (7.4-10.4); Monocytes Absolute Auto 0.6 K/mm3 (0.1-0.6); Monocytes Percent Auto 6.2 % (2.6-8.5); Neutrophils Absolute Auto 8.8 K/mm3 (1.3-6.7); Neutrophils Percent Auto 84.4 % (45.5-73.1); Platelet Count Result 242 k/mm3 (150-375); Red Blood Count 3.97 M/mm3 (4.2-5.4); Red Cell Distribution Width 14.6 % (11.5-14.5); White Blood Count 10.4 K/mm3 (4.5-10.0)
[2024-11-20 06:23] LABS: Alanine Aminotransferase 82 U/L (6-35); Albumin Level 3.4 g/dL (3.5-5.1); Alkaline Phosphatase 224 U/L (38-126); Anion Gap 9 mmol/L (4-12); Aspartate Amino Transferase 88 U/L (14-36); Bilirubin,Total 3.4 mg/dL (0.2-1.3); Blood Urea Nitrogen 15 mg/dL (7-17); Calcium 8.3 mg/dL (8.4-10.2); Carbon Dioxide 29 mmol/L (22-30); Chloride 99 mmol/L (98-107); Estimated CRCL calculation 85 ml/min; Estimated Glomerular Filt Rate > 60; Glucose 216 mg/dL (65-110); Potassium 3.1 mmol/L (3.4-5.0); Sodium 137 mmol/L (137-145)
--- NOTE | 2024-11-20 07:13 | WPDCDIQUERY2 ---
CDI Query Clarification Request BMI: 36.7 Nutritional Diagnostic Statement: Please refer to the comprehensive nutrition assessment for further information. If you agree with diagnosis of Severe Protein Calorie Malnutrition as related to inadequate protein energy intake as evidenced by significant weight loss of 15 ibs (7%) in 1 month and < 75% of EER for > 1 month. .Please specify severity if known: Mild Moderate Severe Other/Unknown <Suzan Avendano RN - Last Filed: 11/20/24 07:13> Provider Comments I agree, patient has moderate nutritional def. <Vaishali Case APRN - Last Filed: 11/20/24 10:57>
--- NOTE | 2024-11-20 07:30 | PM.IMPN ---
Progress Note: A&P Assessment and Plan (1) Hyponatremia: Code(s): E87.1 - Hypo-osmolality and hyponatremia Status: Acute Assessment and Plan: ## r/t nausea, vomiting --> Na 137, K 3.1 today --> trend labs, --> replete as needed --continue NS with 20 KCL at 100 ml per hour (2) Cholestatic hepatitis: Code(s): K75.89 - Other specified inflammatory liver diseases Status: Acute Assessment and Plan: ## IVFs; Anti-emetics --> start reglan 10 mg po ACHS --> Zofran prn --> Bentyl IM prn - trend labs - cmp-cbc- blood cultures --> IV zosyn - --> GI consulted; -->GS consult --> not a surgical candidate at this time. (3) Hypertension: Code(s): I10 - Essential (primary) hypertension Status: Chronic Assessment and Plan: Continue home medications (4) Hyperlipidemia: Code(s): E78.5 - Hyperlipidemia, unspecified Status: Chronic Assessment and Plan: Continue medications (5) Ileostomy in place: Code(s): Z93.2 - Ileostomy status Status: Acute Assessment and Plan: ## Hx of colon Ca. s/p resection, ostomy and Port-placement. Rx to begin at [place], [place] Stable -draining liquid stool Plan Hx of colon Ca. s/p resection, ostomy and Port-placement. Rx to begin at [place], [place] on the 12/09/2024 Code status. Full Nutrition. clear liquid at this time VTE prophylaxis. SCDs; [facility] Time Spent With Patient Time: Had a very extensive conversation with patient's daughter Suzan, who is a RN at the BHU unit in [facility]. Explained to the patient and the daughter that we will be keeping the patient until she can successfully keep fluids down. Explained to her the MRCP results, surgical intervention is not warranted at this time. Certainly if we were to intervene, she would need 4-6 weeks of healing time which would delay her chemotherapy further. Explained to her this time MRCP results note inflammation of the gallbladder but no obstruction. Will continue to monitor her closely, change her antiemetics, with hopes that we will manage her. Patient and daughter in agreement of this plan Time with patient: Greater than 35 minutes (60 minutes) Subjective Date/time seen: 11/20/24 07:30 Interval history: This is a 68-year-old female with medical history of obesity, breast cancer, cervical cancer, colon cancer with hypertension dyslipidemia. She reports today that she is doing okay, she is tired. Patient had her MRCP yesterday, which noted no obstruction, did note some minimal inflammation of the gallbladder and cholelithiasis, no need for surgical intervention at this time. Patient was seen by heme Onc yesterday, some confusion on why she did not have surgery. However if patient were to have surgery she would be delayed in her chemotherapy which is due to start a [facility] on the 09 of December. Patient reports active vomiting, she does have some upper abdominal pain, and nausea. Patient has had active vomiting since post ileostomy. Patient has been hospitalized multiple times for this similar complaint. Denies any diarrhea. Denies any fever chills, denies any melena, hemoptysis, LOC, comfort distress. Review of Systems Review of Systems: All systems reviewed & are unremarkable except as noted in HPI and below Exam Const: General: comfortable and no acute distress Orientation/consciousness: patient oriented x3 HENMT: Head: normal to inspection and normocephalic Ears: TM's normal bilaterally Face/Nose/Sinus: Normal nares present Mouth: Yes moist mucous membranes Eyes: General: appearance normal, both eyes and all related structures Sclera: abnormal sclerae Pupils: Equal, round and reactive pupils present EOM: EOMs intact bilaterally Neck: Neck: full ROM, no lymphadenopathy and supple Chest: Chest palpation & inspection: normal inspection of the chest Resp: Effort & Inspection: normal respiratory effort Auscultation: rales bilateral at the base Cardio: Rate: regular rate Rhythm: regular rhythm Heart sounds: S1 normal heart sound present and S2 normal heart sound present Peripheral pulses: Peripheral pulses 2+ throughout GI: Inspection: distended and other (right lower ileostomy intact, draining liquid stool ) Auscultation: normal bowel sounds and Hypoactive bowel sounds present Skin: General skin exam: normal color (mildly icteric) and no rashes or lesions noted Neuro: General: patient oriented x3, tone normal and moves all extremities Cranial nerves: Yes Equal, round and reactive pupils present Speech: normal speech Motor exam (neuro): 5/5 motor strength present throughout, Normal motor muscle tone present throughout and strength normal Extrem: General: normal to inspection and full ROM Psych: Appearance: grossly normal Mental Status: mental status grossly normal Objective Data Vital Signs Vital Signs: Vital Signs - 24 hr 11/19/24 08:00 11/19/24 08:00 11/19/24 12:00 Temperature Pulse Rate 89 115 H Respiratory Rate Blood Pressure Pulse Oximetry Oxygen Delivery Room Air 11/19/24 13:38 11/19/24 16:00 11/19/24 21:47 Temperature 97.5 F L 97.9 F Pulse Rate 94 109 H 989 H Respiratory Rate 16 16 Blood Pressure 147/82 H 153/66 H Pulse Oximetry 95 93 Oxygen Delivery 11/20/24 00:00 11/20/24 04:00 11/20/24 05:23 Temperature 98.1 F Pulse Rate 96 119 H 109 H Respiratory Rate 16 Blood Pressure 151/87 H Pulse Oximetry 92 Oxygen Delivery Intake/Output Intake/Output: Intake & Output 11/17/24 11/18/24 11/19/24 11/20/24 23:59 23:59 23:59 23:59 Intake Total 2980 50 Balance 2980 50 Meds/Results Medications: Active Medications Generic Name Dose Route Start Last Admin Trade Name Freq PRN Reason Stop Dose Admin Acetaminophen 650 mg 11/18/24 20:47 Acetaminophen 325 Mg Tablet PO Q4H PRN Mild Pain (1-3) or Fever Guaifenesin/Dextromethorphan 10 ml 11/18/24 20:47 11/20/24 06:02 Guaifenesin/Dextromethorphan 10 Ml Udc PO 10 ml Q4H PRN Administration Cough Heparin Sodium (Porcine) 5,000 units 11/18/24 21:00 11/19/24 20:54 Heparin Sodium 5,000 Units/Ml Vial SUB-Q 5,000 units Q12HR FLORINDA Administration Piperacillin/Tazobactam/Dextrose 3.375 gm in 50 mls @ 100 mls/hr 11/19/24 00:00 11/20/24 06:02 Zosyn 3.375 Gm/Ns 50 Ml IVPB 100 mls/hr Q6H FLORINDA Administration Potassium Chloride/Sodium Chloride 1,000 mls @ 100 mls/hr 11/19/24 09:00 11/19/24 21:01 Kcl 20 Meq/0.45% Ns IV CONT 100 mls/hr .Q10H FLORINDA Administration Melatonin 5 mg 11/18/24 20:47 11/19/24 20:49 Melatonin 5 Mg Tablet PO 5 mg HS PRN Administration Insomnia Morphine Sulfate 2 mg 11/18/24 17:22 Morphine Sulfate (*Crx) 2 Mg/Ml Inj IV PUSH Q2H PRN Pain Rated 7-10 Prochlorperazine Edisylate 10 mg 11/18/24 20:47 11/19/24 20:49 Prochlorperazine Edisylate 10 Mg/2 Ml Vial IV PUSH 10 mg Q6H PRN Administration Nausea And Vomiting Radiology Results: ITS Impressions Chest CT 11/18/24 14:58 IMPRESSION: 1. Mild pulmonary edema. 2. 18 mm liver mass suspicious for abscess or metastatic disease. 3. Cholelithiasis. Gallbladder distention may be secondary to fasting. 4. Mild mediastinal lymphadenopathy, likely reactive. MRCP 11/19/24 15:50 IMPRESSION: 1. Multiple liver masses, consistent with metastatic disease. 2. Wall thickening of the hepatic flexure of the colon with surrounding fat stranding and peritoneal nodularity, consistent with primary malignancy and peritoneal carcinomatosis. 3. Cholelithiasis. Gallbladder distention may be secondary to fasting or acute cholecystitis. If there is clinical concern for acute cholecystitis, consider hepatobiliary scintigraphy. Labs Labs: Laboratory Results - last 24 hr 11/19/24 11/20/24 09:57 05:33 WBC 10.9 H 10.4 H RBC 4.00 L 3.97 L Hgb 10.7 L 10.7 L Hct 35.9 L 35.2 L MCV 89.8 D 88.7 MCH 26.8 27.0 MCHC 29.8 L 30.4 L RDW 14.4 14.6 H Plt Count 233 242 MPV 10.7 H 10.9 H Immature Gran % (Auto) 0.5 0.3 Neut % (Auto) 86.4 H 84.4 H Lymph % (Auto) 7.3 L 6.2 L [place] % (Auto) 5.4 6.2 Eos % (Auto) 0.2 2.7 Baso % (Auto) 0.2 0.2 Lymph # (Auto) 0.80 L 0.64 L [place] # (Auto) 0.6 0.6 Eos # (Auto) 0.0 0.3 Baso # (Auto) 0.0 0.0 Abs Immat Gran (auto) 0.05 H 0.03 Absolute Neuts (auto) 9.5 H 8.8 H Absolute Nucleated RBC 0.000 0.000 Band Neutrophils % Not Reportable Nucleated RBC % 0.0 0.0 Platelet Estimate Adequate Hypochromasia 1+ Sabrina Cells 1+ Schistocytes None seen Sodium 139 137 Potassium 3.9 3.1 L Chloride 101 99 Carbon Dioxide 29 29 Anion Gap 9 9 BUN 16 15 Creatinine 0.65 L 0.54 L Estim Creat Clear Calc 72 85 Estimated GFR > 60 > 60 Glucose 193 H 216 H Calcium 8.2 L 8.3 L Magnesium 2.0 Total Bilirubin 3.8 H 3.4 H AST 95 H 88 H ALT 76 H 82 H Alkaline Phosphatase 200 H 224 H Total Protein 6.0 L 7.0 Albumin 3.3 L 3.4 L
[2024-11-20] MEDS: HEPARIN SODIUM 5,000 UNITS/ML VIAL 5000 UNITS SUB-Q ×2 (08:59→20:36)
[2024-11-20] MEDS: PROCHLORPERAZINE EDISYLATE 10 MG/2 ML VIAL IV PUSH (09:02)
[2024-11-20] MEDS: KCL 20 MEQ/0.45% NS 1,000 ML 100 ML IV CONT ×2 (10:17→20:37)
[2024-11-20] MEDS: METOCLOPRAMIDE HCL INJ 10 MG/2 ML VIAL IV PUSH (10:19)
[2024-11-20] MEDS: amLODIPine BESYLATE 5 MG TABLET PO (10:19)
[2024-11-20] MEDS: METOPROLOL SUCCINATE EXT REL 50 MG TABCR PO ×2 (10:20→20:36)
[2024-11-20] MEDS: PANTOPRAZOLE SODIUM IV 40 MG VIAL IV PUSH (10:22)
[2024-11-20] MEDS: METOCLOPRAMIDE HCL 10 MG TABLET PO ×3 (12:36→20:36)
--- NOTE | 2024-11-20 12:57 | PM.PNGS ---
Progress Note: A&P Assessment and Plan (1) Cholelithiasis: Qualifiers: Biliary obstruction: without biliary obstruction Cholecystitis presence: without cholecystitis Cholelithiasis location: gallbladder Qualified Code(s): K80.20 - Calculus of gallbladder without cholecystitis without obstruction Code(s): K80.20 - Calculus of gallbladder without cholecystitis without obstruction Status: Acute Assessment and Plan: No inflammatory signs on CT or MRI. Stone does not appear to be obstructing cystic or common bile ducts. Can get HIDA scan to rule out cholecystitis. Would not recommend any surgical intervention unless significant inflammatory or infectious signs develop. Will get HIDA scan tomorrow morning. (2) Nausea and vomiting in adult: Code(s): R11.2 - Nausea with vomiting, unspecified Status: Resolved (3) Metastases to the liver: Code(s): C78.7 - Secondary malignant neoplasm of liver and intrahepatic bile duct Status: Acute Assessment and Plan: Likely source of elevated liver enzymes (4) Pulmonary edema: Code(s): J81.1 - Chronic pulmonary edema Status: Acute Assessment and Plan: Likely cause of cough, continue as per Hospitalist. (5) Ileostomy in place: Code(s): Z93.2 - Ileostomy status Status: Acute (6) 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: Code(s): C18.9 - Malignant neoplasm of colon, unspecified; C77.2 - Secondary and unspecified malignant neoplasm of intra-abdominal lymph nodes Status: Acute (7) Elevated liver enzymes: Code(s): R74.8 - Abnormal levels of other serum enzymes Status: Acute Subjective Subjective Date/Time Seen: 11/20/24 12:57 Interval history: Still no abdominal pain. Just nausea. Also still c/o cough when lying down. Exam GI: Inspection: non-distended and other (ileostomy patent and functioning) GI Palp: No abdominal tenderness, Yes Soft to palpation, No Guarding due to palpation present (GI) and No Rebound tenderness present Percussion: Yes normal to percussion Auscultation: normal bowel sounds Objective Data Vital Signs Vital Signs: Vital Signs - 24 hr 11/19/24 13:38 11/19/24 16:00 11/19/24 21:47 Temperature 97.5 F L 97.9 F Pulse Rate 94 109 H 989 H Respiratory Rate 16 16 Blood Pressure 147/82 H 153/66 H Pulse Oximetry 95 93 Oxygen Delivery 11/20/24 00:00 11/20/24 04:00 11/20/24 05:23 Temperature 98.1 F Pulse Rate 96 119 H 109 H Respiratory Rate 16 Blood Pressure 151/87 H Pulse Oximetry 92 Oxygen Delivery 11/20/24 08:00 11/20/24 10:20 Temperature Pulse Rate 93 Respiratory Rate Blood Pressure Pulse Oximetry Oxygen Delivery Room Air Intake/Output Intake/Output: Intake & Output 11/17/24 11/18/24 11/19/24 11/20/24 23:59 23:59 23:59 23:59 Intake Total 2980 1340 Balance 2980 1340 Meds/Results Medications: Active Medications Generic Name Dose Route Start Last Admin Trade Name Freq PRN Reason Stop Dose Admin Acetaminophen 650 mg 11/18/24 20:47 Acetaminophen 325 Mg Tablet PO Q4H PRN Mild Pain (1-3) or Fever Amlodipine Besylate 5 mg 11/20/24 10:10 11/20/24 10:19 Amlodipine Besylate 5 Mg Tablet PO 5 mg DAILY FLORINDA Administration Dicyclomine HCl 20 mg 11/20/24 09:58 Dicyclomine Hcl Inj 20 Mg/2 Ml Vial IM QID PRN Cramping Guaifenesin/Dextromethorphan 10 ml 11/18/24 20:47 11/20/24 06:02 Guaifenesin/Dextromethorphan 10 Ml Udc PO 10 ml Q4H PRN Administration Cough Heparin Sodium (Porcine) 5,000 units 11/18/24 21:00 11/20/24 08:59 Heparin Sodium 5,000 Units/Ml Vial SUB-Q 5,000 units Q12HR FLORINDA Administration Piperacillin/Tazobactam/Dextrose 3.375 gm in 50 mls @ 100 mls/hr 11/19/24 00:00 11/20/24 12:36 Zosyn 3.375 Gm/Ns 50 Ml IVPB 100 mls/hr Q6H FLORINDA Administration Potassium Chloride/Sodium Chloride 1,000 mls @ 100 mls/hr 11/19/24 09:00 11/20/24 10:17 Kcl 20 Meq/0.45% Ns IV CONT 100 mls/hr .Q10H FLORINDA Administration Melatonin 5 mg 11/18/24 20:47 11/19/24 20:49 Melatonin 5 Mg Tablet PO 5 mg HS PRN Administration Insomnia Metoclopramide HCl 10 mg 11/20/24 11:30 11/20/24 12:36 Metoclopramide Hcl 10 Mg Tablet PO 10 mg ACHS FLORINDA Administration Metoprolol Succinate 50 mg 11/20/24 10:10 11/20/24 10:20 Metoprolol Succinate Ext Rel 50 Mg Tabcr PO 50 mg Q12HR FLORINDA Administration Morphine Sulfate 2 mg 11/18/24 17:22 Morphine Sulfate (*Crx) 2 Mg/Ml Inj IV PUSH Q2H PRN Pain Rated 7-10 Ondansetron HCl 4 mg 11/20/24 09:56 Ondansetron Inj 4 Mg/2 Ml Vial IV PUSH Q6H PRN Nausea And Vomiting Pantoprazole Sodium 40 mg 11/21/24 09:00 Pantoprazole Sodium Iv 40 Mg Vial IV PUSH QAM [facility] Radiology Results: ITS Impressions Chest CT 11/18/24 14:58 IMPRESSION: 1. Mild pulmonary edema. 2. 18 mm liver mass suspicious for abscess or metastatic disease. 3. Cholelithiasis. Gallbladder distention may be secondary to fasting. 4. Mild mediastinal lymphadenopathy, likely reactive. MRCP 11/19/24 15:50 IMPRESSION: 1. Multiple liver masses, consistent with metastatic disease. 2. Wall thickening of the hepatic flexure of the colon with surrounding fat stranding and peritoneal nodularity, consistent with primary malignancy and peritoneal carcinomatosis. 3. Cholelithiasis. Gallbladder distention may be secondary to fasting or acute cholecystitis. If there is clinical concern for acute cholecystitis, consider hepatobiliary scintigraphy. Chest X-Ray 11/20/24 12:15 IMPRESSION: 1. Interstitial opacities in the mid and lower lung zones, consistent with mild pulmonary edema versus atypical pneumonia. Labs Labs: Laboratory Results - last 24 hr 11/20/24 05:33 WBC 10.4 H RBC 3.97 L Hgb 10.7 L Hct 35.2 L MCV 88.7 MCH 27.0 MCHC 30.4 L RDW 14.6 H Plt Count 242 MPV 10.9 H Immature Gran % (Auto) 0.3 Neut % (Auto) 84.4 H Lymph % (Auto) 6.2 L [place] % (Auto) 6.2 Eos % (Auto) 2.7 Baso % (Auto) 0.2 Lymph # (Auto) 0.64 L [place] # (Auto) 0.6 Eos # (Auto) 0.3 Baso # (Auto) 0.0 Abs Immat Gran (auto) 0.03 Absolute Neuts (auto) 8.8 H Absolute Nucleated RBC 0.000 Nucleated RBC % 0.0 Sodium 137 Potassium 3.1 L Chloride 99 Carbon Dioxide 29 Anion Gap 9 BUN 15 Creatinine 0.54 L Estim Creat Clear Calc 85 Estimated GFR > 60 Glucose 216 H Calcium 8.3 L Total Bilirubin 3.4 H AST 88 H ALT 82 H Alkaline Phosphatase 224 H Total Protein 7.0 Albumin 3.4 L
--- NOTE | 2024-11-20 13:58 | WPDGIPROGNO ---
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: Code(s): C18.9 - Malignant neoplasm of colon, unspecified; C77.2 - Secondary and unspecified malignant neoplasm of intra-abdominal lymph nodes Status: Acute (4) Nausea and vomiting in adult: Code(s): R11.2 - Nausea with vomiting, unspecified Status: Resolved (5) Ileostomy in place: Code(s): Z93.2 - Ileostomy status Status: Acute Subjective Date/time seen: 11/20/24 13:58 Interval history: still with nausea Review of Systems Review of Systems: All systems reviewed & are unremarkable except as noted in HPI and below Exam Const: General: alert; No acute distress Orientation/consciousness: patient oriented x3 Limitations: no limitations HENMT: Head: normocephalic and atraumatic Ears: hearing grossly normal bilaterally Face/Nose/Sinus: Normal nares present Mouth: Yes Normal oral and palatal mucosa present Eyes: General: appearance normal, both eyes and all related structures Conjunctivae: conjunctivae normal Neck: Neck: normal visual inspection and full ROM Chest: Chest palpation & inspection: normal inspection of the chest Resp: Effort & Inspection: normal respiratory effort and able to speak in complete sentences Auscultation: clear to auscultation bilaterally Cardio: Rate: regular rate Rhythm: regular rhythm GI: Inspection: non-distended and other (Right lower quadrant loop ileostomy in place) GI Palp: Yes Soft to palpation, No Tenderness to palpation present (GI) and No Guarding due to palpation present (GI) Percussion: Yes normal to percussion Auscultation: normal bowel sounds Other: Ileostomy patent and functioning : General: Yes no CVA tenderness Back/Spine/Pelvis: Back: no CVA tenderness Skin: General skin exam: normal color and dry skin Neuro: General: patient oriented x3, moves all extremities and no focal motor deficits Speech: normal speech Extrem: General: normal to inspection Objective Data Vital Signs Vital Signs: Vital Signs - 24 hr 11/19/24 16:00 11/19/24 21:47 11/20/24 00:00 Temperature 97.9 F Pulse Rate 109 H 989 H 96 Respiratory Rate 16 Blood Pressure 153/66 H Pulse Oximetry 93 Oxygen Delivery 11/20/24 04:00 11/20/24 05:23 11/20/24 08:00 Temperature 98.1 F Pulse Rate 119 H 109 H Respiratory Rate 16 Blood Pressure 151/87 H Pulse Oximetry 92 Oxygen Delivery Room Air 11/20/24 10:20 Temperature Pulse Rate 93 Respiratory Rate Blood Pressure Pulse Oximetry Oxygen Delivery Intake/Output Intake/Output: Intake & Output 11/17/24 11/18/24 11/19/24 11/20/24 23:59 23:59 23:59 23:59 Intake Total 2980 1340 Balance 2980 1340 Meds/Results Medications: Active Medications Generic Name Dose Route Start Last Admin Trade Name Freq PRN Reason Stop Dose Admin Acetaminophen 650 mg 11/18/24 20:47 Acetaminophen 325 Mg Tablet PO Q4H PRN Mild Pain (1-3) or Fever Amlodipine Besylate 5 mg 11/20/24 10:10 11/20/24 10:19 Amlodipine Besylate 5 Mg Tablet PO 5 mg DAILY FLORINDA Administration Dicyclomine HCl 20 mg 11/20/24 09:58 Dicyclomine Hcl Inj 20 Mg/2 Ml Vial IM QID PRN Cramping Guaifenesin/Dextromethorphan 10 ml 11/18/24 20:47 11/20/24 06:02 Guaifenesin/Dextromethorphan 10 Ml Udc PO 10 ml Q4H PRN Administration Cough Heparin Sodium (Porcine) 5,000 units 11/18/24 21:00 11/20/24 08:59 Heparin Sodium 5,000 Units/Ml Vial SUB-Q 5,000 units Q12HR FLORINDA Administration Piperacillin/Tazobactam/Dextrose 3.375 gm in 50 mls @ 100 mls/hr 11/19/24 00:00 11/20/24 12:36 Zosyn 3.375 Gm/Ns 50 Ml IVPB 100 mls/hr Q6H FLORINDA Administration Potassium Chloride/Sodium Chloride 1,000 mls @ 100 mls/hr 11/19/24 09:00 11/20/24 10:17 Kcl 20 Meq/0.45% Ns IV CONT 100 mls/hr .Q10H FLORINDA Administration Melatonin 5 mg 11/18/24 20:47 11/19/24 20:49 Melatonin 5 Mg Tablet PO 5 mg HS PRN Administration Insomnia Metoclopramide HCl 10 mg 11/20/24 11:30 11/20/24 12:36 Metoclopramide Hcl 10 Mg Tablet PO 10 mg ACHS FLORINDA Administration Metoprolol Succinate 50 mg 11/20/24 10:10 11/20/24 10:20 Metoprolol Succinate Ext Rel 50 Mg Tabcr PO 50 mg Q12HR FLORINDA Administration Morphine Sulfate 2 mg 11/18/24 17:22 Morphine Sulfate (*Crx) 2 Mg/Ml Inj IV PUSH Q2H PRN Pain Rated 7-10 Ondansetron HCl 4 mg 11/20/24 09:56 Ondansetron Inj 4 Mg/2 Ml Vial IV PUSH Q6H PRN Nausea And Vomiting Pantoprazole Sodium 40 mg 11/21/24 09:00 Pantoprazole Sodium Iv 40 Mg Vial IV PUSH QAM [facility] Radiology Results: ITS Impressions Chest CT 11/18/24 14:58 IMPRESSION: 1. Mild pulmonary edema. 2. 18 mm liver mass suspicious for abscess or metastatic disease. 3. Cholelithiasis. Gallbladder distention may be secondary to fasting. 4. Mild mediastinal lymphadenopathy, likely reactive. MRCP 11/19/24 15:50 IMPRESSION: 1. Multiple liver masses, consistent with metastatic disease. 2. Wall thickening of the hepatic flexure of the colon with surrounding fat stranding and peritoneal nodularity, consistent with primary malignancy and peritoneal carcinomatosis. 3. Cholelithiasis. Gallbladder distention may be secondary to fasting or acute cholecystitis. If there is clinical concern for acute cholecystitis, consider hepatobiliary scintigraphy. Chest X-Ray 11/20/24 12:15 IMPRESSION: 1. Interstitial opacities in the mid and lower lung zones, consistent with mild pulmonary edema versus atypical pneumonia. Labs Labs: Laboratory Results - last 24 hr 11/20/24 05:33 WBC 10.4 H RBC 3.97 L Hgb 10.7 L Hct 35.2 L MCV 88.7 MCH 27.0 MCHC 30.4 L RDW 14.6 H Plt Count 242 MPV 10.9 H Immature Gran % (Auto) 0.3 Neut % (Auto) 84.4 H Lymph % (Auto) 6.2 L [place] % (Auto) 6.2 Eos % (Auto) 2.7 Baso % (Auto) 0.2 Lymph # (Auto) 0.64 L [place] # (Auto) 0.6 Eos # (Auto) 0.3 Baso # (Auto) 0.0 Abs Immat Gran (auto) 0.03 Absolute Neuts (auto) 8.8 H Absolute Nucleated RBC 0.000 Nucleated RBC % 0.0 Sodium 137 Potassium 3.1 L Chloride 99 Carbon Dioxide 29 Anion Gap 9 BUN 15 Creatinine 0.54 L Estim Creat Clear Calc 85 Estimated GFR > 60 Glucose 216 H Calcium 8.3 L Total Bilirubin 3.4 H AST 88 H ALT 82 H Alkaline Phosphatase 224 H Total Protein 7.0 Albumin 3.4 L
[2024-11-20] MEDS: MELATONIN 5 MG TABLET PO (20:36)
[2024-11-21] VITALS (7 sets, daily range): BP systolic 142–150; BP diastolic 70–77; PULSE 65–95; RESP 16–18; TEMP 36.1–36.4; O2SAT 91–95
[2024-11-21] MEDS: PIPERACILLN/TAZ 3.375GM/NS50ML 3.375 GM/50 ML BAG IVPB ×2 (00:06→05:40)
[2024-11-21] MEDS: guaiFENesin/DEXTROMETHORPHAN 10 ML UDC PO ×2 (00:10→21:51)
[2024-11-21 05:44] LABS: Basophils Percent Auto 0.3 % (0.2-1.2); Eosinophils Absolute Auto 0.6 K/mm3 (0-0.3); Eosinophils Percent Auto 4.8 % (0-4.4); Hematocrit 33.9 % (37.0-47.0); Hemoglobin 10.5 g/dL (12.0-15.0); Immature Granulocyte Absolute 0.06 K/mm3 (0.00-0.031); Immature Granulocyte Percent A 0.5 % (0-0.5); Lymphocytes Absolute Auto 1.27 K/mm3 (0.9-3.2); Mean Corpuscular Hemoglobin 27.3 pg (26-34); Mean Corpuscular Volume 88.1 fl (80-100); Mean Platelet Volume 10.8 fl (7.4-10.4); Monocytes Absolute Auto 0.8 K/mm3 (0.1-0.6); Monocytes Percent Auto 6.9 % (2.6-8.5); Neutrophils Absolute Auto 8.9 K/mm3 (1.3-6.7); Neutrophils Percent Auto 76.5 % (45.5-73.1); Platelet Count Result 266 k/mm3 (150-375); Red Blood Count 3.85 M/mm3 (4.2-5.4); Red Cell Distribution Width 14.6 % (11.5-14.5); White Blood Count 11.6 K/mm3 (4.5-10.0)
[2024-11-21 05:56] LABS: Alanine Aminotransferase 77 U/L (6-35); Albumin Level 3.4 g/dL (3.5-5.1); Alkaline Phosphatase 239 U/L (38-126); Anion Gap 10 mmol/L (4-12); Aspartate Amino Transferase 71 U/L (14-36); Bilirubin,Total 3.2 mg/dL (0.2-1.3); Blood Urea Nitrogen 10 mg/dL (7-17); Calcium 8.6 mg/dL (8.4-10.2); Carbon Dioxide 24 mmol/L (22-30); Chloride 101 mmol/L (98-107); Estimated CRCL calculation 94 ml/min; Estimated Glomerular Filt Rate > 60; Glucose 170 mg/dL (65-110); Potassium 3.5 mmol/L (3.4-5.0); Sodium 135 mmol/L (137-145)
--- NOTE | 2024-11-21 07:35 | PM.IMPN ---
Progress Note: A&P Assessment and Plan (1) Hyponatremia: Code(s): E87.1 - Hypo-osmolality and hyponatremia Status: Acute Assessment and Plan: ## r/t nausea, vomiting --> Na 135, K 3.5 today --> trend labs, --> replete as needed --continue NS with 20 KCL at 100 ml per hour --> after changing to scheduled ACHS reglan, prn Zofran. (2) Cholestatic hepatitis: Code(s): K75.89 - Other specified inflammatory liver diseases Status: Acute Assessment and Plan: ## IVFs; Anti-emetics --> started reglan 10 mg po ACHS --> Zofran prn --> Bentyl IM prn - trend labs - cmp-cbc- blood cultures --> IV zosyn - stopped - changed to Levaquin --> GI consulted; -->GS consult --> not a surgical candidate at this time. HIDA scan today (3) Hypertension: Code(s): I10 - Essential (primary) hypertension Status: Chronic Assessment and Plan: Continue home medications (4) Hyperlipidemia: Code(s): E78.5 - Hyperlipidemia, unspecified Status: Chronic Assessment and Plan: Continue medications (5) Ileostomy in place: Code(s): Z93.2 - Ileostomy status Status: Acute Assessment and Plan: ## Hx of colon Ca. s/p resection, ostomy and Port-placement. Rx to begin at [place], [place] Stable -draining liquid stool (6) Atypical pneumonia: Code(s): J18.9 - Pneumonia, unspecified organism Status: Acute Assessment and Plan: - patient was treated out patient for PNE, - with elevation in WBC - and cough. CXR ordered - noted Interstitial opacities in the mid and lower lung zones, consistent with mild pulmonary edema versus atypical pneumonia. which is improved ---> stop Zosyn, start levaquin 750 mg IV daily. trend labs and monitor. off note: CXR 10/27/24 - FINDINGS A right subclavian central venous port catheter identified with the reservoir projecting just caudal to the right glenohumeral joint space and the tip projecting over the superior vena cava. Right upper extremity PICC line also detected with its tip projecting over the cavoatrial junction. The remainder of the cardiomediastinal silhouette is enlarged, but otherwise unremarkable. Patchy opacification of the left mid to lower lung field. Increased interstitial markings are identified bilaterally, findings suggesting mild pulmonary vascular congestion. The lungs are otherwise clear. Plan Hx of colon Ca. s/p resection, ostomy and Port-placement. Rx to begin at [place], [place] on the 12/09/2024 Code status. Full Nutrition. clear liquid at this time VTE prophylaxis. SCDs; FLORINDA Time Spent With Patient Time with patient: Greater than 35 minutes (45 minutes) Subjective Date/time seen: 11/21/24 07:35 Interval history: This is a 68-year-old female with medical history of obesity, breast cancer, cervical cancer, colon cancer with hypertension dyslipidemia. She reports today that she is doing okay, she is tired. Patient had her MRCP which noted no obstruction, did note some minimal inflammation of the gallbladder and cholelithiasis, no need for surgical intervention at this time. Patient was seen by [facility] [place] Onc which lead to some confusion on why she did not have surgery. However if patient were to have surgery she would be delayed in her chemotherapy which is due to start a [facility] on the 09 of December. Patient is to have Hida scan today. Patient reports no vomiting today except when she coughed hard enough to make her vomit, she does not have upper abdominal pain today and no nausea. Patient has had active vomiting since post ileostomy. Patient has been hospitalized multiple times for this similar complaint. Denies any diarrhea. Denies any fever chills, denies any melena, hemoptysis, LOC, comfort distress. *off note: spoke again with Daughter Suzan, nurse at [facility], updated on care, at this time she is comfortable with mothers care, if she worsens would consider transfer to [facility] At this time, continuing course. Review of Systems Review of Systems: All systems reviewed & are unremarkable except as noted in HPI and below Exam Const: General: comfortable and no acute distress Orientation/consciousness: patient oriented x3 HENMT: Head: normal to inspection and normocephalic Ears: TM's normal bilaterally Face/Nose/Sinus: Normal nares present Mouth: Yes moist mucous membranes Eyes: General: appearance normal, both eyes and all related structures Sclera: abnormal sclerae Pupils: Equal, round and reactive pupils present EOM: EOMs intact bilaterally Neck: Neck: full ROM, no lymphadenopathy and supple Chest: Chest palpation & inspection: normal inspection of the chest Resp: Effort & Inspection: normal respiratory effort Auscultation: rales bilateral at the base Cardio: Rate: regular rate Rhythm: regular rhythm Heart sounds: S1 normal heart sound present and S2 normal heart sound present Peripheral pulses: Peripheral pulses 2+ throughout GI: Inspection: distended and other (right lower ileostomy intact, draining liquid stool ) Auscultation: normal bowel sounds and Hypoactive bowel sounds present Skin: General skin exam: normal color (mildly icteric) and no rashes or lesions noted Neuro: General: patient oriented x3, tone normal and moves all extremities Cranial nerves: Yes Equal, round and reactive pupils present Speech: normal speech Motor exam (neuro): 5/5 motor strength present throughout, Normal motor muscle tone present throughout and strength normal Extrem: General: normal to inspection and full ROM Psych: Appearance: grossly normal Mental Status: mental status grossly normal Objective Data Vital Signs Vital Signs: Vital Signs - 24 hr 11/20/24 08:00 11/20/24 08:00 11/20/24 10:20 Temperature Pulse Rate 92 93 Respiratory Rate Blood Pressure Pulse Oximetry Oxygen Delivery Room Air 11/20/24 12:00 11/20/24 14:00 11/20/24 16:00 Temperature 98.2 F Pulse Rate 110 H 98 90 Respiratory Rate 14 Blood Pressure 174/74 H Pulse Oximetry 95 Oxygen Delivery 11/20/24 20:00 11/20/24 20:00 11/20/24 20:36 Temperature Pulse Rate 85 75 Respiratory Rate Blood Pressure Pulse Oximetry Oxygen Delivery Room Air 11/20/24 21:48 11/21/24 00:00 11/21/24 04:00 Temperature 97.5 F L Pulse Rate 82 95 65 Respiratory Rate 14 Blood Pressure 154/68 H Pulse Oximetry 92 Oxygen Delivery 11/21/24 06:00 Temperature 97.0 F L Pulse Rate 82 Respiratory Rate 18 Blood Pressure 149/70 H Pulse Oximetry 95 Oxygen Delivery Intake/Output Intake/Output: Intake & Output 11/18/24 11/19/24 11/20/24 11/21/24 23:59 23:59 23:59 23:59 Intake Total 2980 3450 100 Balance 2980 3450 100 Meds/Results Medications: Active Medications Generic Name Dose Route Start Last Admin Trade Name Freq PRN Reason Stop Dose Admin Acetaminophen 650 mg 11/18/24 20:47 Acetaminophen 325 Mg Tablet PO Q4H PRN Mild Pain (1-3) or Fever Amlodipine Besylate 5 mg 11/20/24 10:10 11/20/24 10:19 Amlodipine Besylate 5 Mg Tablet PO 5 mg DAILY FLORINDA Administration Dicyclomine HCl 20 mg 11/20/24 09:58 Dicyclomine Hcl Inj 20 Mg/2 Ml Vial IM QID PRN Cramping Guaifenesin/Dextromethorphan 10 ml 11/18/24 20:47 11/21/24 00:10 Guaifenesin/Dextromethorphan 10 Ml Udc PO 10 ml Q4H PRN Administration Cough Heparin Sodium (Porcine) 5,000 units 11/18/24 21:00 11/20/24 20:36 Heparin Sodium 5,000 Units/Ml Vial SUB-Q 5,000 units Q12HR FLORINDA Administration Potassium Chloride/Sodium Chloride 1,000 mls @ 100 mls/hr 11/19/24 09:00 11/20/24 20:37 Kcl 20 Meq/0.45% Ns IV CONT 100 mls/hr .Q10H FLORINDA Administration Levofloxacin/Dextrose 750 mg in 150 mls @ 100 mls/hr 11/21/24 07:35 Levaquin 750 Mg/D5w 150 Ml IVPB Q24H FLORINDA Melatonin 5 mg 11/18/24 20:47 11/20/24 20:36 Melatonin 5 Mg Tablet PO 5 mg HS PRN Administration Insomnia Metoclopramide HCl 10 mg 11/20/24 11:30 11/21/24 05:41 Metoclopramide Hcl 10 Mg Tablet PO Not Given ACHS FLORINDA Metoprolol Succinate 50 mg 11/20/24 10:10 11/20/24 20:36 Metoprolol Succinate Ext Rel 50 Mg Tabcr PO 50 mg Q12HR FLORINDA Administration Morphine Sulfate 2 mg 11/18/24 17:22 Morphine Sulfate (*Crx) 2 Mg/Ml Inj IV PUSH Q2H PRN Pain Rated 7-10 Ondansetron HCl 4 mg 11/20/24 09:56 Ondansetron Inj 4 Mg/2 Ml Vial IV PUSH Q6H PRN Nausea And Vomiting Pantoprazole Sodium 40 mg 11/21/24 09:00 Pantoprazole Sodium Iv 40 Mg Vial IV PUSH QAM FLORINDA Radiology Results: ITS Impressions Chest CT 11/18/24 14:58 IMPRESSION: 1. Mild pulmonary edema. 2. 18 mm liver mass suspicious for abscess or metastatic disease. 3. Cholelithiasis. Gallbladder distention may be secondary to fasting. 4. Mild mediastinal lymphadenopathy, likely reactive. MRCP 11/19/24 15:50 IMPRESSION: 1. Multiple liver masses, consistent with metastatic disease. 2. Wall thickening of the hepatic flexure of the colon with surrounding fat stranding and peritoneal nodularity, consistent with primary malignancy and peritoneal carcinomatosis. 3. Cholelithiasis. Gallbladder distention may be secondary to fasting or acute cholecystitis. If there is clinical concern for acute cholecystitis, consider hepatobiliary scintigraphy. Chest X-Ray 11/20/24 12:15 IMPRESSION: 1. Interstitial opacities in the mid and lower lung zones, consistent with mild pulmonary edema versus atypical pneumonia. Labs Labs: Laboratory Results - last 24 hr 11/21/24 05:38 WBC 11.6 H RBC 3.85 L Hgb 10.5 L Hct 33.9 L MCV 88.1 MCH 27.3 MCHC 31.0 L RDW 14.6 H Plt Count 266 MPV 10.8 H Immature Gran % (Auto) 0.5 Neut % (Auto) 76.5 H Lymph % (Auto) 11.0 L [place] % (Auto) 6.9 Eos % (Auto) 4.8 H Baso % (Auto) 0.3 Lymph # (Auto) 1.27 [place] # (Auto) 0.8 H Eos # (Auto) 0.6 H Baso # (Auto) 0.0 Abs Immat Gran (auto) 0.06 H Absolute Neuts (auto) 8.9 H Absolute Nucleated RBC 0.000 Nucleated RBC % 0.0 Sodium 135 L Potassium 3.5 Chloride 101 Carbon Dioxide 24 Anion Gap 10 BUN 10 D Creatinine 0.48 L Estim Creat Clear Calc 94 Estimated GFR > 60 Glucose 170 H Calcium 8.6 Total Bilirubin 3.2 H AST 71 H ALT 77 H Alkaline Phosphatase 239 H Total Protein 7.0 Albumin 3.4 L Quality VTE Prophylaxis VTE prophylaxis: mechanical ordered Hospitalist MIPS Advance Care Plan I have confirmed that the patient's Advanced Care Plan is present, code status is documented, or surrogate decision maker is listed in patient medical record.: Yes Medication Reconciliation I have utilized all available resources to obtain, update and review the patients current medications (includes all prescriptions, OTC, herbals, cannabis, and nutritional supplements).: Yes
--- NOTE | 2024-11-21 08:14 | PCNFU ---
Nutrition Follow-Up Complete: Severe Protein Calorie Malnutrition as related to inadequate protein energy intake as evidenced by significant weight loss of 15 ibs (7%) in 1 month and < 75% of EER for > 1 month. Goal: Meet estimated nutritional needs. Patient will continue current goal. Pt current nutrition is NPO. Nutrition recommendation: Regular Last recorded weight is 88 kg, stable Bowel Motility:+BM reported 11/20-ostomy Labs Reviewed:Glu 170,Cr 0.48, Alb 3.4 Meds Noted:Heparin, Reglan, Protonix Skin: WNL Additional Notes: Patient currently NPO for HIDA scan today. Recommend Ensure Enlive BID for additional 350 kcal and 20 gm protein when diet order advances. Will monitor weight, labs, skin, diet orders, meds every 5 days.
--- NOTE | 2024-11-21 08:30 | PM.PNGS ---
Progress Note: A&P Assessment and Plan (1) Cholelithiasis: Qualifiers: Biliary obstruction: without biliary obstruction Cholecystitis presence: without cholecystitis Cholelithiasis location: gallbladder Qualified Code(s): K80.20 - Calculus of gallbladder without cholecystitis without obstruction Code(s): K80.20 - Calculus of gallbladder without cholecystitis without obstruction Status: Acute Assessment and Plan: Will await HIDA results. (2) Nausea and vomiting in adult: Code(s): R11.2 - Nausea with vomiting, unspecified Status: Resolved (3) Metastases to the liver: Code(s): C78.7 - Secondary malignant neoplasm of liver and intrahepatic bile duct Status: Acute Assessment and Plan: Likely source of elevated liver enzymes (4) Pulmonary edema: Code(s): J81.1 - Chronic pulmonary edema Status: Acute Assessment and Plan: Likely cause of cough, continue as per Hospitalist. 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 No Abd pain. Exam GI: Inspection: non-distended and other (ileostomy patent and functioning) GI Palp: No abdominal tenderness, Yes Soft to palpation, No Guarding due to palpation present (GI) and No Rebound tenderness present Percussion: Yes normal to percussion Auscultation: normal bowel sounds Objective Data Vital Signs Vital Signs: Vital Signs - 24 hr 11/20/24 10:20 11/20/24 12:00 11/20/24 14:00 Temperature 98.2 F Pulse Rate 93 110 H 98 Respiratory Rate 14 Blood Pressure 174/74 H Pulse Oximetry 95 Oxygen Delivery 11/20/24 16:00 11/20/24 20:00 11/20/24 20:00 Temperature Pulse Rate 90 85 Respiratory Rate Blood Pressure Pulse Oximetry Oxygen Delivery Room Air 11/20/24 20:36 11/20/24 21:48 11/21/24 00:00 Temperature 97.5 F L Pulse Rate 75 82 95 Respiratory Rate 14 Blood Pressure 154/68 H Pulse Oximetry 92 Oxygen Delivery 11/21/24 04:00 11/21/24 06:00 Temperature 97.0 F L Pulse Rate 65 82 Respiratory Rate 18 Blood Pressure 149/70 H Pulse Oximetry 95 Oxygen Delivery Intake/Output Intake/Output: Intake & Output 11/18/24 11/19/24 11/20/24 11/21/24 23:59 23:59 23:59 23:59 Intake Total 2980 3450 100 Balance 2980 3450 100 Meds/Results Medications: Active Medications Generic Name Dose Route Start Last Admin Trade Name Freq PRN Reason Stop Dose Admin Acetaminophen 650 mg 11/18/24 20:47 Acetaminophen 325 Mg Tablet PO Q4H PRN Mild Pain (1-3) or Fever Amlodipine Besylate 5 mg 11/20/24 10:10 11/20/24 10:19 Amlodipine Besylate 5 Mg Tablet PO 5 mg DAILY [place] Administration Dicyclomine HCl 20 mg 11/20/24 09:58 Dicyclomine Hcl Inj 20 Mg/2 Ml Vial IM QID PRN Cramping Guaifenesin/Dextromethorphan 10 ml 11/18/24 20:47 11/21/24 00:10 Guaifenesin/Dextromethorphan 10 Ml Udc PO 10 ml Q4H PRN Administration Cough Heparin Sodium (Porcine) 5,000 units 11/18/24 21:00 11/20/24 20:36 Heparin Sodium 5,000 Units/Ml Vial SUB-Q 5,000 units Q12HR FLORINDA Administration Potassium Chloride/Sodium Chloride 1,000 mls @ 100 mls/hr 11/19/24 09:00 11/20/24 20:37 Kcl 20 Meq/0.45% Ns IV CONT 100 mls/hr .Q10H FLORINDA Administration Levofloxacin/Dextrose 750 mg in 150 mls @ 100 mls/hr 11/21/24 09:00 Levaquin 750 Mg/D5w 150 Ml IVPB Q24H FLORINDA Melatonin 5 mg 11/18/24 20:47 11/20/24 20:36 Melatonin 5 Mg Tablet PO 5 mg HS PRN Administration Insomnia Metoclopramide HCl 10 mg 11/20/24 11:30 11/21/24 05:41 Metoclopramide Hcl 10 Mg Tablet PO Not Given ACHS [facility] Metoprolol Succinate 50 mg 11/20/24 10:10 11/20/24 20:36 Metoprolol Succinate Ext Rel 50 Mg Tabcr PO 50 mg Q12HR [facility] Administration Morphine Sulfate 2 mg 11/18/24 17:22 Morphine Sulfate (*Crx) 2 Mg/Ml Inj IV PUSH Q2H PRN Pain Rated 7-10 Ondansetron HCl 4 mg 11/20/24 09:56 Ondansetron Inj 4 Mg/2 Ml Vial IV PUSH Q6H PRN Nausea And Vomiting Pantoprazole Sodium 40 mg 11/21/24 09:00 Pantoprazole Sodium Iv 40 Mg Vial IV PUSH QAM [facility] Radiology Results: ITS Impressions Chest CT 11/18/24 14:58 IMPRESSION: 1. Mild pulmonary edema. 2. 18 mm liver mass suspicious for abscess or metastatic disease. 3. Cholelithiasis. Gallbladder distention may be secondary to fasting. 4. Mild mediastinal lymphadenopathy, likely reactive. MRCP 11/19/24 15:50 IMPRESSION: 1. Multiple liver masses, consistent with metastatic disease. 2. Wall thickening of the hepatic flexure of the colon with surrounding fat stranding and peritoneal nodularity, consistent with primary malignancy and peritoneal carcinomatosis. 3. Cholelithiasis. Gallbladder distention may be secondary to fasting or acute cholecystitis. If there is clinical concern for acute cholecystitis, consider hepatobiliary scintigraphy. Chest X-Ray 11/20/24 12:15 IMPRESSION: 1. Interstitial opacities in the mid and lower lung zones, consistent with mild pulmonary edema versus atypical pneumonia. Labs Labs: Laboratory Results - last 24 hr 11/21/24 05:38 WBC 11.6 H RBC 3.85 L Hgb 10.5 L Hct 33.9 L MCV 88.1 MCH 27.3 MCHC 31.0 L RDW 14.6 H Plt Count 266 MPV 10.8 H Immature Gran % (Auto) 0.5 Neut % (Auto) 76.5 H Lymph % (Auto) 11.0 L [place] % (Auto) 6.9 Eos % (Auto) 4.8 H Baso % (Auto) 0.3 Lymph # (Auto) 1.27 [place] # (Auto) 0.8 H Eos # (Auto) 0.6 H Baso # (Auto) 0.0 Abs Immat Gran (auto) 0.06 H Absolute Neuts (auto) 8.9 H Absolute Nucleated RBC 0.000 Nucleated RBC % 0.0 Sodium 135 L Potassium 3.5 Chloride 101 Carbon Dioxide 24 Anion Gap 10 BUN 10 D Creatinine 0.48 L Estim Creat Clear Calc 94 Estimated GFR > 60 Glucose 170 H Calcium 8.6 Total Bilirubin 3.2 H AST 71 H ALT 77 H Alkaline Phosphatase 239 H Total Protein 7.0 Albumin 3.4 L
[2024-11-21] MEDS: KCL 20 MEQ/0.45% NS 1,000 ML 100 ML IV CONT ×2 (09:33→21:30)
[2024-11-21] MEDS: levoFLOXacin 750 MG/D5W 150 ML 750 MG/150 ML BAG 100 MG IVPB (09:52)
[2024-11-21] MEDS: PANTOPRAZOLE SODIUM IV 40 MG VIAL IV PUSH (15:00)
[2024-11-21] MEDS: amLODIPine BESYLATE 5 MG TABLET PO (15:01)
[2024-11-21] MEDS: METOCLOPRAMIDE HCL 10 MG TABLET PO ×2 (15:24→21:36)
[2024-11-21] MEDS: BENZONATATE 100 MG CAPSULE PO (17:37)
[2024-11-21] MEDS: METOPROLOL SUCCINATE EXT REL 50 MG TABCR PO (21:36)
[2024-11-21] MEDS: HEPARIN SODIUM 5,000 UNITS/ML VIAL 5000 UNITS SUB-Q (21:37)
[2024-11-22 05:32] VITALS: BP 151/71; PULSE 88; RESP 18; TEMP 36.7; O2SAT 95
[2024-11-22 05:57] LABS: Basophils Percent Auto 0.2 % (0.2-1.2); Eosinophils Absolute Auto 0.5 K/mm3 (0-0.3); Eosinophils Percent Auto 4.2 % (0-4.4); Hematocrit 35.9 % (37.0-47.0); Hemoglobin 11.3 g/dL (12.0-15.0); Immature Granulocyte Percent A 0.8 % (0-0.5); Lymphocytes Absolute Auto 1.36 K/mm3 (0.9-3.2); Lymphocytes Percent Auto 11.3 % (18.3-44.2); Mean Corpuscular HGB Conc 31.5 g/dl (32-36); Mean Corpuscular Hemoglobin 26.8 pg (26-34); Mean Corpuscular Volume 85.3 fl (80-100); Mean Platelet Volume 10.4 fl (7.4-10.4); Monocytes Absolute Auto 0.9 K/mm3 (0.1-0.6); Monocytes Percent Auto 7.4 % (2.6-8.5); Neutrophils Absolute Auto 9.1 K/mm3 (1.3-6.7); Neutrophils Percent Auto 76.1 % (45.5-73.1); Platelet Count Result 255 k/mm3 (150-375); Red Blood Count 4.21 M/mm3 (4.2-5.4); Red Cell Distribution Width 14.6 % (11.5-14.5)
[2024-11-22 06:08] LABS: Alanine Aminotransferase 72 U/L (6-35); Albumin Level 3.4 g/dL (3.5-5.1); Alkaline Phosphatase 274 U/L (38-126); Anion Gap 10 mmol/L (4-12); Aspartate Amino Transferase 69 U/L (14-36); Bilirubin,Total 3.6 mg/dL (0.2-1.3); Blood Urea Nitrogen 7 mg/dL (7-17); Calcium 8.9 mg/dL (8.4-10.2); Carbon Dioxide 23 mmol/L (22-30); Chloride 101 mmol/L (98-107); Estimated CRCL calculation 98 ml/min; Estimated Glomerular Filt Rate > 60; Glucose 173 mg/dL (65-110); Potassium 3.4 mmol/L (3.4-5.0); Sodium 134 mmol/L (137-145)
[2024-11-22] MEDS: METOCLOPRAMIDE HCL 10 MG TABLET PO ×4 (06:31→21:19)
[2024-11-22 09:07] VITALS: PULSE 79
[2024-11-22] MEDS: BENZONATATE 100 MG CAPSULE PO ×3 (09:07→17:32)
[2024-11-22] MEDS: METOPROLOL SUCCINATE EXT REL 50 MG TABCR PO ×2 (09:07→21:19)
[2024-11-22] MEDS: levoFLOXacin 750 MG/D5W 150 ML 750 MG/150 ML BAG 100 MG IVPB (09:07)
[2024-11-22] MEDS: amLODIPine BESYLATE 5 MG TABLET PO (09:07)
[2024-11-22] MEDS: HEPARIN SODIUM 5,000 UNITS/ML VIAL 5000 UNITS SUB-Q ×2 (09:07→21:19)
[2024-11-22] MEDS: PANTOPRAZOLE SODIUM IV 40 MG VIAL IV PUSH (09:08)
--- NOTE | 2024-11-22 09:30 | PC.NURSE ---
RN called IV ultrasound RN Don Counts to place new IV.
--- NOTE | 2024-11-22 09:54 | PM.PNGS ---
Progress Note: A&P Assessment and Plan (1) Cholelithiasis: Qualifiers: Biliary obstruction: without biliary obstruction Cholecystitis presence: without cholecystitis Cholelithiasis location: gallbladder Qualified Code(s): K80.20 - Calculus of gallbladder without cholecystitis without obstruction Code(s): K80.20 - Calculus of gallbladder without cholecystitis without obstruction Status: Acute Assessment and Plan: HIDA scan shows delayed passage of the tracer from the liver. Little or no activity in the gallbladder but no activity in the bowel either by 3 hours. Not really suggestive of cholecystitis as the issue seems to be retention of the tracer within the liver itself. MRCP did show 15 lesions most likely metastatic cancer within the liver. Hepatic flexure tumor and carcinomatosis noted as well. Patient does not like the liquids that she is getting but is not having any abdominal pain, or any nausea or vomiting. Will proceed with low-fiber diet today. I discussed with her the possibility of percutaneous cholecystostomy tube and drainage as treatment for cholecystitis but with the HIDA scan result, it does not appear she has cholecystitis. (2) Nausea and vomiting in adult: Code(s): R11.2 - Nausea with vomiting, unspecified Status: Resolved (3) Ileostomy in place: Code(s): Z93.2 - Ileostomy status Status: Chronic Assessment and Plan: Working well (4) Colon cancer: Qualifiers: Colon location: hepatic flexure Qualified Code(s): C18.3 - Malignant neoplasm of hepatic flexure Code(s): C18.9 - Malignant neoplasm of colon, unspecified Status: Chronic (5) Metastases to the liver: Code(s): C78.7 - Secondary malignant neoplasm of liver and intrahepatic bile duct Status: Chronic Subjective Subjective Date/Time Seen: 11/22/24 09:54 Patient reports: no new complaints, pain is less, afebrile and other (Ankles edematous, elevating on a chair) Review of Systems Review of Systems: All systems reviewed & are unremarkable except as noted in HPI and below (HPI) Exam Const: General: comfortable and no acute distress Orientation/consciousness: patient oriented x3 GI: Inspection: other (Ileostomy noted) GI Palp: Yes Soft to palpation, No Tenderness to palpation present (GI), No Guarding due to palpation present (GI) and No Rebound tenderness present Auscultation: normal bowel sounds Neuro: General: patient oriented x3 and no focal motor deficits Extrem: General: no calf tenderness and no edema Psych: Affect: normal affect Insight: Good insight present (Psych) Judgement: Good judgement present (Psych) Objective Data Vital Signs Vital Signs: Vital Signs - 24 hr 11/21/24 14:00 11/21/24 20:00 11/21/24 20:30 Temperature 36.2 C L 36.4 C L Pulse Rate 84 95 Respiratory Rate 18 16 Blood Pressure 142/74 H 150/77 H Pulse Oximetry 95 91 Oxygen Delivery Room Air 11/21/24 21:36 11/22/24 05:32 11/22/24 09:07 Temperature 36.7 C Pulse Rate 95 88 79 Respiratory Rate 18 Blood Pressure 151/71 H Pulse Oximetry 95 Oxygen Delivery Intake/Output Intake/Output: Intake & Output 11/19/24 11/20/24 11/21/24 11/22/24 23:59 23:59 23:59 23:59 Intake Total 2980 3450 2370 300 Balance 2980 3450 2370 300 Meds/Results Medications: Active Medications Generic Name Dose Route Start Last Admin Trade Name Freq PRN Reason Stop Dose Admin Acetaminophen 650 mg 11/18/24 20:47 Acetaminophen 325 Mg Tablet PO Q4H PRN Mild Pain (1-3) or Fever Amlodipine Besylate 5 mg 11/20/24 10:10 11/22/24 09:07 Amlodipine Besylate 5 Mg Tablet PO 5 mg DAILY FLORINDA Administration Benzonatate 100 mg 11/21/24 13:00 11/22/24 09:07 Benzonatate 100 Mg Capsule PO 100 mg TID FLORINDA Administration Dicyclomine HCl 20 mg 11/20/24 09:58 Dicyclomine Hcl Inj 20 Mg/2 Ml Vial IM QID PRN Cramping Guaifenesin/Dextromethorphan 10 ml 11/18/24 20:47 11/21/24 21:51 Guaifenesin/Dextromethorphan 10 Ml Udc PO 10 ml Q4H PRN Administration Cough Heparin Sodium (Porcine) 5,000 units 11/18/24 21:00 11/22/24 09:07 Heparin Sodium 5,000 Units/Ml Vial SUB-Q 5,000 units Q12HR FLORINDA Administration Potassium Chloride/Sodium Chloride 1,000 mls @ 100 mls/hr 11/19/24 09:00 11/21/24 21:30 Kcl 20 Meq/0.45% Ns IV CONT 100 mls/hr .Q10H FLORINDA Administration Levofloxacin/Dextrose 750 mg in 150 mls @ 100 mls/hr 11/21/24 09:00 11/22/24 09:07 Levaquin 750 Mg/D5w 150 Ml IVPB 100 mls/hr Q24H FLORINDA Administration Melatonin 5 mg 11/18/24 20:47 11/20/24 20:36 Melatonin 5 Mg Tablet PO 5 mg HS PRN Administration Insomnia Metoclopramide HCl 10 mg 11/20/24 11:30 11/22/24 06:31 Metoclopramide Hcl 10 Mg Tablet PO 10 mg ACHS FLORINDA Administration Metoprolol Succinate 50 mg 11/20/24 10:10 11/22/24 09:07 Metoprolol Succinate Ext Rel 50 Mg Tabcr PO 50 mg Q12HR FLORINDA Administration Morphine Sulfate 2 mg 11/18/24 17:22 Morphine Sulfate (*Crx) 2 Mg/Ml Inj IV PUSH Q2H PRN Pain Rated 7-10 Ondansetron HCl 4 mg 11/20/24 09:56 Ondansetron Inj 4 Mg/2 Ml Vial IV PUSH Q6H PRN Nausea And Vomiting Pantoprazole Sodium 40 mg 11/21/24 09:00 11/22/24 09:08 Pantoprazole Sodium Iv 40 Mg Vial IV PUSH 40 mg QAM FLORINDA Administration Radiology Results: ITS Impressions Chest CT 11/18/24 14:58 IMPRESSION: 1. Mild pulmonary edema. 2. 18 mm liver mass suspicious for abscess or metastatic disease. 3. Cholelithiasis. Gallbladder distention may be secondary to fasting. 4. Mild mediastinal lymphadenopathy, likely reactive. MRCP 11/19/24 15:50 IMPRESSION: 1. Multiple liver masses, consistent with metastatic disease. 2. Wall thickening of the hepatic flexure of the colon with surrounding fat stranding and peritoneal nodularity, consistent with primary malignancy and peritoneal carcinomatosis. 3. Cholelithiasis. Gallbladder distention may be secondary to fasting or acute cholecystitis. If there is clinical concern for acute cholecystitis, consider hepatobiliary scintigraphy. Chest X-Ray 11/20/24 12:15 IMPRESSION: 1. Interstitial opacities in the mid and lower lung zones, consistent with mild pulmonary edema versus atypical pneumonia. Hepatobiliary Scan Nuclear Medicine 11/21/24 14:28 IMPRESSION: 1. Markedly delayed activity excretion from the gallbladder with small amount of gallbladder activity but no evident activity in the bowel likely course of 3 hours of observation which is suggestive of biliary obstruction at the level of the common bile duct although no evident biliary ductal dilation is evident on the prior MRCP. Labs Labs: Laboratory Results - last 24 hr 11/22/24 05:43 WBC 12.0 H RBC 4.21 Hgb 11.3 L Hct 35.9 L MCV 85.3 MCH 26.8 MCHC 31.5 L RDW 14.6 H Plt Count 255 MPV 10.4 Immature Gran % (Auto) 0.8 H Neut % (Auto) 76.1 H Lymph % (Auto) 11.3 L [place] % (Auto) 7.4 Eos % (Auto) 4.2 Baso % (Auto) 0.2 Lymph # (Auto) 1.36 [place] # (Auto) 0.9 H Eos # (Auto) 0.5 H Baso # (Auto) 0.0 Abs Immat Gran (auto) 0.10 H Absolute Neuts (auto) 9.1 H Absolute Nucleated RBC 0.000 Nucleated RBC % 0.0 Sodium 134 L Potassium 3.4 Chloride 101 Carbon Dioxide 23 Anion Gap 10 BUN 7 Creatinine 0.46 L Estim Creat Clear Calc 98 Estimated GFR > 60 Glucose 173 H Calcium 8.9 Total Bilirubin 3.6 H AST 69 H ALT 72 H Alkaline Phosphatase 274 H Total Protein 7.0 Albumin 3.4 L
--- NOTE | 2024-11-22 10:31 | PM.IMPN ---
Progress Note: A&P Assessment and Plan (1) Atypical pneumonia: Code(s): J18.9 - Pneumonia, unspecified organism Status: Acute Assessment and Plan: Chest CT shown mild pulmonary edema Chest x-ray showing interstitial opacities in the mid and lower lung zone consistent with mild pulmonary edema versus atypical pneumonia Continue Levaquin (2) UTI (urinary tract infection): Code(s): N39.0 - Urinary tract infection, site not specified Status: Acute Assessment and Plan: UA showing turbid urine appearance, 2+ urine protein, 1-100 urine RBC, yeast present. No urine culture was obtained Patient currently on Levaquin Blood culture showing no growth to date on preliminary read (3) Cholestatic hepatitis: Code(s): K75.89 - Other specified inflammatory liver diseases Status: Acute Assessment and Plan: Continue Zosyn General surgery did HIDA scan yesterday which did not show cholecystitis. She is not a candidate for surgery and is not a candidate for percutaneous cholecystectomy drain GI signed off Continue antiemetics (4) Hyponatremia: Code(s): E87.1 - Hypo-osmolality and hyponatremia Status: Acute Assessment and Plan: Sodium 134 Continue to trend (5) Hypertension: Code(s): I10 - Essential (primary) hypertension Status: Chronic Assessment and Plan: Blood pressure ranging 142/74 to 174/74 Continue amlodipine and metoprolol (6) Hyperlipidemia: Code(s): E78.5 - Hyperlipidemia, unspecified Status: Chronic Assessment and Plan: Continue Zeita, pravastatin, aspirin (7) Ileostomy in place: Code(s): Z93.2 - Ileostomy status Status: Chronic Assessment and Plan: History of colon cancer status post resection and ileostomy with port placement Continue I&O Time Spent With Patient Time with patient: Greater than 35 minutes Subjective Date/time seen: 11/22/24 10:31 Interval history: Interval history: This is a 68-year-old female with significant past medical history of obesity, breast cancer, cervical cancer, colon cancer, hypertension, hyper lipidemia who presented to the hospital with complaints of nausea and vomiting on 11/18/2024. Workup in the hospital included a chest CT which showed mild pulmonary edema, 18 mm liver mass suspicious for abscess or metastatic disease, cholelithiasis, gallbladder distension secondary to fasting, mild mediastinal lymphadenopathy likely reactive. MRCP showed multiple liver masses consistent with metastatic disease, wall thickening of the hepatic flexure of the colon with surrounding fat stranding and peritoneal nodularity consistent with primary malignancy and perineal carcinomatosis, cholelithiasis with gallbladder distention. Chest x-ray showed interstitial opacities in the mid and lower lung zones consistent with pulmonary edema versus atypical pneumonia. HIDA scan shown markedly delayed activity excretion from a gallbladder was small amount of gallbladder activity but no evident activity and the bowel likely course of 3 hours of observation which is suggestive of biliary obstruction at the level of the common bile duct although no evident biliary ductal dilatation is evident on prior MRCP. Initial labs showed a white blood cell count of 14.9, sodium 132, potassium 2.9, chloride 88, bicarb 32, creatinine 0.66, EGFR greater than 60, blood sugars ranging 193-204, lactic acid was normal at 0.9, total bili 4.0, AST 102, ALT 83, alkaline phosphate 216, C reactive protein 13.9, proBNP 168, lipase 344. A UA was obtained which showed turbid urine appearance, 2+ urine protein, positive nitrate, 3+ urine bili, 1+ leukocyte, 51-100 urine RBC, greater than 20 urine cast, yeast present. Respiratory panel was negative for influenza a and B, RSV, COVID. Blood cultures were obtained and pending. GI, General surgery, Oncology/Hematology were consulted. Patient was started on Levaquin however no urine culture was obtained. Patient will be started on chemotherapy on 12/09/2024 as an outpatient. General surgery reviewed MRCP and will hold off on percutaneous cholecystectomy tube or any surgical intervention as the HIDA scan results did not appear to show cholecystitis. GI suggested that her metastatic disease to the liver is the cause of her symptoms and that there was no indication for ERCP at this time and signed off on 11/20/2024. Subjective: Patient denies any new complaints today. Labs and imaging reviewed Review of Systems Review of Systems: All systems reviewed & are unremarkable except as noted in HPI and below Exam Narrative: General: In no acute distress, well nourished Head: atraumatic, no encephalopathy Eyes: PERRLA, sclera clear ENT: moist mucous membranes, nasal passages clear Neck: supple, no JVD, no adenopathy, trachea midline Cardiac: Normal S1 and S2. No murmur, gallops or friction rubs, peripheral pulses intact. Respiratory: Lungs clear to auscultation, no adventitious lung sounds currently on room air Gastrointestinal: soft, non-distended, non-tender, normoactive bowel sounds. : voiding without difficulty. Extremities: moves all extremities well, 1 to 2+ bilateral lower extremity edema Neuro: Alert and oriented x4, cranial nerves intact, no neuro deficits. Psych: normal mood, normal affect, interactive Objective Data Vital Signs Vital Signs: Vital Signs - 24 hr 11/21/24 14:00 11/21/24 20:00 11/21/24 20:30 Temperature 97.2 F L 97.5 F L Pulse Rate 84 95 Respiratory Rate 18 16 Blood Pressure 142/74 H 150/77 H Pulse Oximetry 95 91 Oxygen Delivery Room Air 11/21/24 21:36 11/22/24 05:32 11/22/24 09:07 Temperature 98.1 F Pulse Rate 95 88 79 Respiratory Rate 18 Blood Pressure 151/71 H Pulse Oximetry 95 Oxygen Delivery Intake/Output Intake/Output: Intake & Output 11/19/24 11/20/24 11/21/24 11/22/24 23:59 23:59 23:59 23:59 Intake Total 2980 3450 2370 900 Balance 2980 3450 2370 900 Meds/Results Medications: Active Medications Generic Name Dose Route Start Last Admin Trade Name Freq PRN Reason Stop Dose Admin Acetaminophen 650 mg 11/18/24 20:47 Acetaminophen 325 Mg Tablet PO Q4H PRN Mild Pain (1-3) or Fever Amlodipine Besylate 5 mg 11/20/24 10:10 11/22/24 09:07 Amlodipine Besylate 5 Mg Tablet PO 5 mg DAILY FLORINDA Administration Benzonatate 100 mg 11/21/24 13:00 11/22/24 09:07 Benzonatate 100 Mg Capsule PO 100 mg TID FLORINDA Administration Dicyclomine HCl 20 mg 11/20/24 09:58 Dicyclomine Hcl Inj 20 Mg/2 Ml Vial IM QID PRN Cramping Guaifenesin/Dextromethorphan 10 ml 11/18/24 20:47 11/21/24 21:51 Guaifenesin/Dextromethorphan 10 Ml Udc PO 10 ml Q4H PRN Administration Cough Heparin Sodium (Porcine) 5,000 units 11/18/24 21:00 11/22/24 09:07 Heparin Sodium 5,000 Units/Ml Vial SUB-Q 5,000 units Q12HR FLORINDA Administration Potassium Chloride/Sodium Chloride 1,000 mls @ 100 mls/hr 11/19/24 09:00 11/21/24 21:30 Kcl 20 Meq/0.45% Ns IV CONT 100 mls/hr .Q10H FLORINDA Administration Levofloxacin/Dextrose 750 mg in 150 mls @ 100 mls/hr 11/21/24 09:00 11/22/24 09:07 Levaquin 750 Mg/D5w 150 Ml IVPB 100 mls/hr Q24H FLORINDA Administration Melatonin 5 mg 11/18/24 20:47 11/20/24 20:36 Melatonin 5 Mg Tablet PO 5 mg HS PRN Administration Insomnia Metoclopramide HCl 10 mg 11/20/24 11:30 11/22/24 06:31 Metoclopramide Hcl 10 Mg Tablet PO 10 mg ACHS FLORINDA Administration Metoprolol Succinate 50 mg 11/20/24 10:10 11/22/24 09:07 Metoprolol Succinate Ext Rel 50 Mg Tabcr PO 50 mg Q12HR FLORINDA Administration Morphine Sulfate 2 mg 11/18/24 17:22 Morphine Sulfate (*Crx) 2 Mg/Ml Inj IV PUSH Q2H PRN Pain Rated 7-10 Ondansetron HCl 4 mg 11/20/24 09:56 Ondansetron Inj 4 Mg/2 Ml Vial IV PUSH Q6H PRN Nausea And Vomiting Pantoprazole Sodium 40 mg 11/21/24 09:00 11/22/24 09:08 Pantoprazole Sodium Iv 40 Mg Vial IV PUSH 40 mg QAM FLORINDA Administration Radiology Results: ITS Impressions Chest CT 11/18/24 14:58 IMPRESSION: 1. Mild pulmonary edema. 2. 18 mm liver mass suspicious for abscess or metastatic disease. 3. Cholelithiasis. Gallbladder distention may be secondary to fasting. 4. Mild mediastinal lymphadenopathy, likely reactive. MRCP 11/19/24 15:50 IMPRESSION: 1. Multiple liver masses, consistent with metastatic disease. 2. Wall thickening of the hepatic flexure of the colon with surrounding fat stranding and peritoneal nodularity, consistent with primary malignancy and peritoneal carcinomatosis. 3. Cholelithiasis. Gallbladder distention may be secondary to fasting or acute cholecystitis. If there is clinical concern for acute cholecystitis, consider hepatobiliary scintigraphy. Chest X-Ray 11/20/24 12:15 IMPRESSION: 1. Interstitial opacities in the mid and lower lung zones, consistent with mild pulmonary edema versus atypical pneumonia. Hepatobiliary Scan Nuclear Medicine 11/21/24 14:28 IMPRESSION: 1. Markedly delayed activity excretion from the gallbladder with small amount of gallbladder activity but no evident activity in the bowel likely course of 3 hours of observation which is suggestive of biliary obstruction at the level of the common bile duct although no evident biliary ductal dilation is evident on the prior MRCP. Labs Labs: Laboratory Results - last 24 hr 11/22/24 05:43 WBC 12.0 H RBC 4.21 Hgb 11.3 L Hct 35.9 L MCV 85.3 MCH 26.8 MCHC 31.5 L RDW 14.6 H Plt Count 255 MPV 10.4 Immature Gran % (Auto) 0.8 H Neut % (Auto) 76.1 H Lymph % (Auto) 11.3 L [place] % (Auto) 7.4 Eos % (Auto) 4.2 Baso % (Auto) 0.2 Lymph # (Auto) 1.36 [place] # (Auto) 0.9 H Eos # (Auto) 0.5 H Baso # (Auto) 0.0 Abs Immat Gran (auto) 0.10 H Absolute Neuts (auto) 9.1 H Absolute Nucleated RBC 0.000 Nucleated RBC % 0.0 Sodium 134 L Potassium 3.4 Chloride 101 Carbon Dioxide 23 Anion Gap 10 BUN 7 Creatinine 0.46 L Estim Creat Clear Calc 98 Estimated GFR > 60 Glucose 173 H Calcium 8.9 Total Bilirubin 3.6 H AST 69 H ALT 72 H Alkaline Phosphatase 274 H Total Protein 7.0 Albumin 3.4 L Quality VTE Prophylaxis VTE prophylaxis: mechanical ordered
[2024-11-22] MEDS: guaiFENesin/DEXTROMETHORPHAN 10 ML UDC PO ×2 (12:06→21:19)
[2024-11-22] MEDS: EZETIMIBE 10 MG TABLET PO (13:23)
[2024-11-22] MEDS: ASPIRIN 81 MG CHEWABLE TABLET PO (13:23)
[2024-11-22] MEDS: PRAVASTATIN SODIUM 20 MG TABLET 40 MG PO (13:23)
[2024-11-22 14:05] VITALS: BP 130/70; PULSE 83; RESP 16; TEMP 36.4; O2SAT 95
[2024-11-22] MEDS: MELATONIN 5 MG TABLET PO (21:19)
[2024-11-22 21:30] VITALS: PULSE 100; RESP 18; TEMP 36.8; O2SAT 93
[2024-11-23 00:30] VITALS: BP 148/61
[2024-11-23] MEDS: METOCLOPRAMIDE HCL 10 MG TABLET PO (05:18)
[2024-11-23 05:40] VITALS: BP 140/76; PULSE 83; RESP 18; TEMP 36.4; O2SAT 95
[2024-11-23 07:22] LABS: Basophils Percent Auto 0.2 % (0.2-1.2); Eosinophils Absolute Auto 0.5 K/mm3 (0-0.3); Eosinophils Percent Auto 3.9 % (0-4.4); Hemoglobin 11.3 g/dL (12.0-15.0); Immature Granulocyte Absolute 0.06 K/mm3 (0.00-0.031); Immature Granulocyte Percent A 0.5 % (0-0.5); Lymphocytes Absolute Auto 0.86 K/mm3 (0.9-3.2); Lymphocytes Percent Auto 7.1 % (18.3-44.2); Mean Corpuscular HGB Conc 31.4 g/dl (32-36); Mean Corpuscular Volume 86.1 fl (80-100); Mean Platelet Volume 11.2 fl (7.4-10.4); Monocytes Absolute Auto 0.9 K/mm3 (0.1-0.6); Monocytes Percent Auto 7.3 % (2.6-8.5); Neutrophils Absolute Auto 9.8 K/mm3 (1.3-6.7); Platelet Count Result 236 k/mm3 (150-375); Red Blood Count 4.18 M/mm3 (4.2-5.4); Red Cell Distribution Width 14.8 % (11.5-14.5); White Blood Count 12.1 K/mm3 (4.5-10.0)
[2024-11-23 07:42] LABS: Alanine Aminotransferase 75 U/L (6-35); Albumin Level 3.5 g/dL (3.5-5.1); Alkaline Phosphatase 372 U/L (38-126); Anion Gap 11 mmol/L (4-12); Aspartate Amino Transferase 82 U/L (14-36); Bilirubin,Total 4.4 mg/dL (0.2-1.3); Blood Urea Nitrogen 8 mg/dL (7-17); Calcium 8.6 mg/dL (8.4-10.2); Carbon Dioxide 24 mmol/L (22-30); Chloride 100 mmol/L (98-107); Estimated CRCL calculation 99 ml/min; Estimated Glomerular Filt Rate > 60; Glucose 200 mg/dL (65-110); Potassium 2.8 mmol/L (3.4-5.0); Sodium 135 mmol/L (137-145)
--- NOTE | 2024-11-23 08:02 | PM.DS ---
DS: Admitting Diagnosis Discharge Date 11/23/24 Admitting Diagnosis hyponatremia cholestatic hepatitis hypertension hyperlipidemia ileostomy in place DS: Discharge Diagnosis Discharge Diagnosis (1) Atypical pneumonia: Code(s): J18.9 - Pneumonia, unspecified organism Status: Acute (2) UTI (urinary tract infection): Code(s): N39.0 - Urinary tract infection, site not specified Status: Acute (3) Cholestatic hepatitis: Code(s): K75.89 - Other specified inflammatory liver diseases Status: Acute (4) Hyponatremia: Code(s): E87.1 - Hypo-osmolality and hyponatremia Status: Acute (5) Hypertension: Code(s): I10 - Essential (primary) hypertension Status: Chronic (6) Hyperlipidemia: Code(s): E78.5 - Hyperlipidemia, unspecified Status: Chronic (7) Ileostomy in place: Code(s): Z93.2 - Ileostomy status Status: Chronic DS: Summary Hospital Course Reason for hospitalization: hyponatremia cholestatic hepatitis hypertension hyperlipidemia ileostomy in place Hospital Course: This is a 68-year-old female with significant past medical history of obesity, breast cancer, cervical cancer, colon cancer, hypertension, hyper lipidemia who presented to the hospital with complaints of nausea and vomiting on 11/18/2024. Workup in the hospital included a chest CT which showed mild pulmonary edema, 18 mm liver mass suspicious for abscess or metastatic disease, cholelithiasis, gallbladder distension secondary to fasting, mild mediastinal lymphadenopathy likely reactive. MRCP showed multiple liver masses consistent with metastatic disease, wall thickening of the hepatic flexure of the colon with surrounding fat stranding and peritoneal nodularity consistent with primary malignancy and perineal carcinomatosis, cholelithiasis with gallbladder distention. Chest x-ray showed interstitial opacities in the mid and lower lung zones consistent with pulmonary edema versus atypical pneumonia. HIDA scan shown markedly delayed activity excretion from a gallbladder was small amount of gallbladder activity but no evident activity and the bowel likely course of 3 hours of observation which is suggestive of biliary obstruction at the level of the common bile duct although no evident biliary ductal dilatation is evident on prior MRCP. Initial labs showed a white blood cell count of 14.9, sodium 132, potassium 2.9, chloride 88, bicarb 32, creatinine 0.66, EGFR greater than 60, blood sugars ranging 193-204, lactic acid was normal at 0.9, total bili 4.0, AST 102, ALT 83, alkaline phosphate 216, C reactive protein 13.9, proBNP 168, lipase 344. A UA was obtained which showed turbid urine appearance, 2+ urine protein, positive nitrate, 3+ urine bili, 1+ leukocyte, 51-100 urine RBC, greater than 20 urine cast, yeast present. Respiratory panel was negative for influenza a and B, RSV, COVID. Blood cultures were obtained and pending. GI, General surgery, Oncology/Hematology were consulted. Patient was started on Levaquin however no urine culture was obtained. Patient will be started on chemotherapy on 12/09/2024 as an outpatient. General surgery reviewed MRCP and will hold off on percutaneous cholecystectomy tube or any surgical intervention as the HIDA scan results did not appear to show cholecystitis. GI suggested that her metastatic disease to the liver is the cause of her symptoms and that there was no indication for ERCP at this time and signed off on 11/20/2024. Patient is stable for discharge at this time. Repeat CXR today remained stable. She will need to finish her full course of antibiotics and then follow up with her PCP in 1 week. She will also need to obtain a CMP to recheck liver enzymes and potassium level. She will be discharged on po potassium for her hypokalemia. She will follow up with [facility] in [place] for her chemotherapy treatments. Final diagnosis: atypical pneumonia, acute UTI, transaminitis, hyponatremia, cholestatic hepatitis, hypokalemia Status at Discharge Cognitive/behavioral status at discharge: Alert and oriented x3 Functional status at discharge: independent ambulation Overall status at discharge: patient is progressing back to baseline Time Spent with Patient Time attestation: Total time spent providing and/or coordinating discharge services: Time spent: Greater than 30 minutes Exam Narrative: General: In no acute distress, well nourished Cardiac: Normal S1 and S2. No murmur, gallops or friction rubs, peripheral pulses intact. Respiratory: Lungs clear to auscultation, no adventitious lung sounds, currently on room air Gastrointestinal: soft, non-distended, non-tender, normoactive bowel sounds. : voiding without difficulty. Extremities: moves all extremities well Neuro: Alert and oriented x4 DS: Data Data Completed and Pending Completed studies during hospitalization: Chest CT MRCP Chest x-ray Hida scan Pending studies at discharge: blood cultures Labs on day of discharge: Labs from last 24 hours 11/23/24 11/18/24 06:19 15:32 WBC 12.1 H RBC 4.18 L Hgb 11.3 L Hct 36.0 L MCV 86.1 MCH 27.0 MCHC 31.4 L RDW 14.8 H Plt Count 236 MPV 11.2 H Immature Gran % (Auto) 0.5 Neut % (Auto) 81.0 H Lymph % (Auto) 7.1 L [place] % (Auto) 7.3 Eos % (Auto) 3.9 Baso % (Auto) 0.2 Lymph # (Auto) 0.86 L [place] # (Auto) 0.9 H Eos # (Auto) 0.5 H Baso # (Auto) 0.0 Abs Immat Gran (auto) 0.06 H Absolute Neuts (auto) 9.8 H Absolute Nucleated RBC 0.000 Nucleated RBC % 0.0 Sodium 135 L Potassium 2.8 L* Chloride 100 Carbon Dioxide 24 Anion Gap 11 BUN 8 Creatinine 0.45 L Estim Creat Clear Calc 99 Estimated GFR > 60 Glucose 200 H Serum Osmolality 280 Calcium 8.6 Total Bilirubin 4.4 H AST 82 H ALT 75 H Alkaline Phosphatase 372 H Total Protein 7.0 Albumin 3.5 Preliminary micro results at discharge 11/18/24 21:20 Blood Culture - Preliminary Blood 11/18/24 21:20 Blood Culture - Preliminary Blood 11/18/24 18:15 Blood Culture - Preliminary Blood 11/18/24 18:15 Blood Culture - Preliminary Blood Procedures/Treatments: None Discharge Plan Discharge Attending physician on discharge: Reina Benjamin Consulting providers: Ramos Capellan; Herbie Phillips; Reina Benjamin; Abdulaziz Buchanan Discharging Clinician: Ibis Rios Anticipated Discharge Date/Time: 11/23/24 07:51 Patient Disposition: Home Health Service Activity: as tolerated Diet: as tolerated and low fiber Discharge Instructions: Per Care Coordination: [facility] ([phone]) will call to resume services at discharge. Finish all your antibiotic as directed even if you are feeling better. Follow up with your primary care doctor in 1 week Follow up with oncologist as already scheduled. Inform them that there were multiple liver masses noted on your MRI with MRCP Your liver enzymes have been trending downward You have been prescribed potassium as your level has been below normal. Continue taking this medication, recheck lab in 1 week, and follow up with primary care doctor. Obtain lab in 1 week to recheck liver enzymes and potassium levels General surgery ruled out acute cholecystitis Patient Instructions: Antibiotic Form, Levofloxacin (By mouth), Low Fiber Diet (DC), Bacterial Pneumonia (DC), Transaminitis (GEN) Patient Language: Pashto Stand Alone Forms: General Discharge Information Follow-up/Referrals: Sharon,Emperatriz Myers MD [Primary Care Provider] - 1 Week Discharge Medications: New dextromethorphan-guaifenesin 10-100 mg/5 mL Syrup 10 ml PO Q4H PRN (Reason: Cough) Qty: 237 0RF benzonatate 100 mg Capsule 100 mg PO TID Qty: 60 0RF potassium chloride [K-Tab] 20 mEq Tablet Extended Release 40 meq PO DAILY Qty: 60 0RF levofloxacin 750 mg tablet 750 mg PO DAILY Qty: 5 0RF Continued metoclopramide HCl [Reglan] 10 mg tablet 10 mg PO Q6H PRN (Reason: nausea and vomiting) Qty: 30 1RF amlodipine 5 mg tablet 5 mg PO DAILY ezetimibe 10 mg tablet 10 mg PO DAILY metoprolol succinate 50 mg tablet extended release 24 hr 50 mg PO Q12H pravastatin 40 mg tablet 40 mg PO DAILY aspirin 81 mg tablet,chewable 81 mg PO DAILY Other Ambulatory Orders: Comprehensive Metabolic Panel (Routine) Timeframe: 1 Week Location: Determined by Patient Ordered By: Ibis Rios Date of admission: 11/19/24 10:50 Primary Care Provider: CorwinEmperatriz Admitting Provider: Bakari Del Real Attending physician on admission: Ibis Rios Condition: Improved Quality VTE Prophylaxis VTE prophylaxis: mechanical ordered Hospitalist MIPS Heart Failure (Exclusion) Patient has history of Heart Transplant or Left Ventricular Assistive Device?: No IF YES, STOP HERE Heart Failure (Qualifier) Patient has current or prior documentation of LVEF less than or equal to 40%, or mod/servere depressed LVSF?: No IF NO, STOP HERE
[2024-11-23 08:43] VITALS: PULSE 78
[2024-11-23] MEDS: METOPROLOL SUCCINATE EXT REL 50 MG TABCR PO (08:43)
[2024-11-23] MEDS: BENZONATATE 100 MG CAPSULE PO (08:43)
[2024-11-23] MEDS: PANTOPRAZOLE 40 MG TABLET PO (08:44)
[2024-11-23] MEDS: amLODIPine BESYLATE 5 MG TABLET PO (08:44)
[2024-11-23] MEDS: ASPIRIN 81 MG CHEWABLE TABLET PO (08:44)
[2024-11-23] MEDS: HEPARIN SODIUM 5,000 UNITS/ML VIAL 5000 UNITS SUB-Q (08:44)
[2024-11-23] MEDS: levoFLOXacin 750 MG TABLET PO (08:44)
[2024-11-23] MEDS: PRAVASTATIN SODIUM 20 MG TABLET 40 MG PO (08:44)
[2024-11-23] MEDS: POTASSIUM CHLORIDE 20 MEQ ER TABLET 40 MEQ PO ×2 (08:44→11:36)
[2024-11-23] MEDS: EZETIMIBE 10 MG TABLET PO (08:44)
--- NOTE | 2024-11-23 13:51 | PM.PNGS ---
Progress Note: A&P Assessment and Plan (1) Metastases to the liver: Code(s): C78.7 - Secondary malignant neoplasm of liver and intrahepatic bile duct Status: Chronic (2) Colon cancer: Qualifiers: Colon location: hepatic flexure Qualified Code(s): C18.3 - Malignant neoplasm of hepatic flexure Code(s): C18.9 - Malignant neoplasm of colon, unspecified Status: Chronic (3) Ileostomy in place: Code(s): Z93.2 - Ileostomy status Status: Chronic (4) Cholelithiasis: Qualifiers: Biliary obstruction: without biliary obstruction Cholecystitis presence: without cholecystitis Cholelithiasis location: gallbladder Qualified Code(s): K80.20 - Calculus of gallbladder without cholecystitis without obstruction Code(s): K80.20 - Calculus of gallbladder without cholecystitis without obstruction Status: Chronic Assessment and Plan: Patient tolerating low-fiber diet without abdominal pain. HIDA scan not suggestive of cholecystitis. Patient plans to go home today and I agree with this. As far as follow-up she has made arrangements to be seen at the [facility] next week. No follow-up with general surgery needed. Subjective Subjective Date/Time Seen: 11/23/24 13:51 Patient reports: no new complaints, feels better, tolerating a regular diet and afebrile Review of Systems Review of Systems: All systems reviewed & are unremarkable except as noted in HPI and below (HPI) Exam Const: General: comfortable and no acute distress Orientation/consciousness: patient oriented x3 GI: Inspection: other (Ileostomy noted) GI Palp: Yes Soft to palpation, No Tenderness to palpation present (GI), No Guarding due to palpation present (GI), No Palpable mass present and No Rebound tenderness present Auscultation: normal bowel sounds Neuro: General: patient oriented x3 and no focal motor deficits Extrem: General: no calf tenderness and no edema Psych: Affect: normal affect Insight: Good insight present (Psych) Judgement: Good judgement present (Psych) Objective Data Vital Signs Vital Signs: Vital Signs - 24 hr 11/22/24 14:05 11/22/24 20:00 11/22/24 21:30 Temperature 36.4 C L 36.8 C Pulse Rate 83 100 Respiratory Rate 16 18 Blood Pressure 130/70 Pulse Oximetry 95 93 Oxygen Delivery Room Air 11/23/24 00:30 11/23/24 05:40 11/23/24 08:43 Temperature 36.4 C L Pulse Rate 83 78 Respiratory Rate 18 Blood Pressure 148/61 H 140/76 Pulse Oximetry 95 Oxygen Delivery 11/23/24 08:45 Temperature Pulse Rate Respiratory Rate Blood Pressure Pulse Oximetry Oxygen Delivery Room Air Intake/Output Intake/Output: Intake & Output 11/20/24 11/21/24 11/22/24 11/23/24 23:59 23:59 23:59 23:59 Intake Total 3450 2370 1220 580 Balance 3450 2370 1220 580 Meds/Results Medications: Active Medications Generic Name Dose Route Start Last Admin Trade Name Freq PRN Reason Stop Dose Admin Acetaminophen 650 mg 11/18/24 20:47 Acetaminophen 325 Mg Tablet PO Q4H PRN Mild Pain (1-3) or Fever Amlodipine Besylate 5 mg 11/20/24 10:10 11/23/24 08:44 Amlodipine Besylate 5 Mg Tablet PO 5 mg DAILY FLORINDA Administration Aspirin 81 mg 11/22/24 12:35 11/23/24 08:44 Aspirin 81 Mg Chewable Tablet PO 81 mg DAILY FLORINDA Administration Benzonatate 100 mg 11/21/24 13:00 11/23/24 08:43 Benzonatate 100 Mg Capsule PO 100 mg TID FLORINDA Administration Dicyclomine HCl 20 mg 11/20/24 09:58 Dicyclomine Hcl Inj 20 Mg/2 Ml Vial IM QID PRN Cramping Ezetimibe 10 mg 11/22/24 12:35 11/23/24 08:44 Ezetimibe 10 Mg Tablet PO 10 mg DAILY FLORINDA Administration Guaifenesin/Dextromethorphan 10 ml 11/18/24 20:47 11/22/24 21:19 Guaifenesin/Dextromethorphan 10 Ml Udc PO 10 ml Q4H PRN Administration Cough Heparin Sodium (Porcine) 5,000 units 11/18/24 21:00 11/23/24 08:44 Heparin Sodium 5,000 Units/Ml Vial SUB-Q 5,000 units Q12HR FLORINDA Administration Levofloxacin 750 mg 11/23/24 09:00 11/23/24 08:44 Levofloxacin 750 Mg Tablet PO 750 mg DAILY FLORINDA Administration Melatonin 5 mg 11/18/24 20:47 11/22/24 21:19 Melatonin 5 Mg Tablet PO 5 mg HS PRN Administration Insomnia Metoclopramide HCl 10 mg 11/20/24 11:30 11/23/24 05:18 Metoclopramide Hcl 10 Mg Tablet PO 10 mg ACHS FLORINDA Administration Metoprolol Succinate 50 mg 11/20/24 10:10 11/23/24 08:43 Metoprolol Succinate Ext Rel 50 Mg Tabcr PO 50 mg Q12HR FLORINDA Administration Morphine Sulfate 2 mg 11/18/24 17:22 Morphine Sulfate (*Crx) 2 Mg/Ml Inj IV PUSH Q2H PRN Pain Rated 7-10 Ondansetron HCl 4 mg 11/20/24 09:56 Ondansetron Inj 4 Mg/2 Ml Vial IV PUSH Q6H PRN Nausea And Vomiting Pantoprazole Sodium 40 mg 11/23/24 09:00 11/23/24 08:44 Pantoprazole 40 Mg Tablet PO 40 mg QAM FLORINDA Administration Potassium Chloride 40 meq 11/24/24 09:00 Potassium Chloride 20 Meq Er Tablet PO DAILY FLORINDA Pravastatin Sodium 40 mg 11/22/24 12:35 11/23/24 08:44 Pravastatin Sodium 20 Mg Tablet PO 40 mg DAILY FLORINDA Administration Radiology Results: ITS Impressions Chest CT 11/18/24 14:58 IMPRESSION: 1. Mild pulmonary edema. 2. 18 mm liver mass suspicious for abscess or metastatic disease. 3. Cholelithiasis. Gallbladder distention may be secondary to fasting. 4. Mild mediastinal lymphadenopathy, likely reactive. MRCP 11/19/24 15:50 IMPRESSION: 1. Multiple liver masses, consistent with metastatic disease. 2. Wall thickening of the hepatic flexure of the colon with surrounding fat stranding and peritoneal nodularity, consistent with primary malignancy and peritoneal carcinomatosis. 3. Cholelithiasis. Gallbladder distention may be secondary to fasting or acute cholecystitis. If there is clinical concern for acute cholecystitis, consider hepatobiliary scintigraphy. Hepatobiliary Scan Nuclear Medicine 11/21/24 14:28 IMPRESSION: 1. Markedly delayed activity excretion from the gallbladder with small amount of gallbladder activity but no evident activity in the bowel likely course of 3 hours of observation which is suggestive of biliary obstruction at the level of the common bile duct although no evident biliary ductal dilation is evident on the prior MRCP. Chest X-Ray 11/23/24 11:06 Impression: Stable congestive change and stable central pulmonary edema pattern. Stable Mediport. Labs Labs: Laboratory Results - last 24 hr 11/18/24 11/23/24 15:32 06:19 WBC 12.1 H RBC 4.18 L Hgb 11.3 L Hct 36.0 L MCV 86.1 MCH 27.0 MCHC 31.4 L RDW 14.8 H Plt Count 236 MPV 11.2 H Immature Gran % (Auto) 0.5 Neut % (Auto) 81.0 H Lymph % (Auto) 7.1 L [place] % (Auto) 7.3 Eos % (Auto) 3.9 Baso % (Auto) 0.2 Lymph # (Auto) 0.86 L [place] # (Auto) 0.9 H Eos # (Auto) 0.5 H Baso # (Auto) 0.0 Abs Immat Gran (auto) 0.06 H Absolute Neuts (auto) 9.8 H Absolute Nucleated RBC 0.000 Nucleated RBC % 0.0 Sodium 135 L Potassium 2.8 L* Chloride 100 Carbon Dioxide 24 Anion Gap 11 BUN 8 Creatinine 0.45 L Estim Creat Clear Calc 99 Estimated GFR > 60 Glucose 200 H Serum Osmolality 280 Calcium 8.6 Total Bilirubin 4.4 H AST 82 H ALT 75 H Alkaline Phosphatase 372 H Total Protein 7.0 Albumin 3.5
== END 2024-11-23 11:40 | disposition home health service (06) | DRG 435 ==
LOC: ANHED 17:27 → ANH3MEDSUR 18:08 → ANH3MED 11-19 23:35
PROVIDERS: Internal Medicine; Physician Assistant; Student in an Organized Health Care Education/Training Program; Admitting Provider General Practice; Emergency Provider Emergency Medicine; PCP Internal Medicine Gastroenterology; Visit Provider Nurse Practitioner Acute Care
DX: C78.7 Secondary malignant neoplasm of liver and intrahepatic bile duct (principal); J18.9 Pneumonia, unspecified organism; C18.4 Malignant neoplasm of transverse colon; C77.2 Secondary and unspecified malignant neoplasm of intra-abdominal lymph nodes; E87.1 Hypo-osmolality and hyponatremia; E44.0 Moderate protein-calorie malnutrition; J81.1 Chronic pulmonary edema; N39.0 Urinary tract infection, site not specified; K75.89 Other specified inflammatory liver diseases; K80.20 Calculus of gallbladder without cholecystitis without obstruction; I10 Essential (primary) hypertension; E86.0 Dehydration; E78.5 Hyperlipidemia, unspecified; Z20.822 Contact with and (suspected) exposure to COVID-19; Z93.2 Ileostomy status; Z79.82 Long term (current) use of aspirin; Z85.3 Personal history of malignant neoplasm of breast; Z85.41 Personal history of malignant neoplasm of cervix uteri; Z68.36 Body mass index [BMI] 36.0-36.9, adult
CPT/HCPCS: 36415; 71045; 71250; 74183; 76376; 78226; 80048; 80053; 81001; 83605; 83690; 83735; 83880; 83930; 85025; 86140; 87040; 87637; 96361; 96365; 96366; 96367; 96375; 99285; A9270; A9537; A9577; G0378; J0780; J1644; J1956; J2470; J2543; J2765; J3480; J7030; J7040

== ENCOUNTER 2024-11-29 12:49 | Inpatient (IN) | payer MEDICARE, SELFPAY ==
[2024-11-29] VITALS (19 sets, daily range): BP systolic 130–158; BP diastolic 64–86; PULSE 101–120; RESP 16–33; TEMP 36.4–37.7; O2SAT 91–96; BMI 36.3
--- NOTE | ~2024-11-29 | XR_ITS ---
EXAMINATION: XR chest 1V portable DATE: 11/29/2024 13:47 INDICATION: Weakness. TECHNIQUE: Frontal and lateral views of the chest were obtained. COMPARISON: Chest single view 11/23/2024, chest CT 11/18/2024 FINDINGS: There is mild elevation of right hemidiaphragm. There is a diffuse interstitial pattern in the lungs. No pleural effusion or pneumothorax. The heart size is normal. There is a right subclavian port with tip in superior vena cava. IMPRESSION: 1. Diffuse interstitial pattern in the lungs, likely mild pulmonary edema. Reviewed, dictated and finalized at location [facility] [employer]
--- NOTE | ~2024-11-29 | CT_ITS ---
CTA chest PE abdomen pel Ordering provider: Radha Fitzgerald MD History: . chest pain . Comparison: November 18, 2024 Technique: CT angiogram chest was performed following timed intravenous injection of contrast. Thin s lice axial images and reformatted coronal images were obtained. Three dimensional reformatted images of the chest were also obtained using a [employer] workstation. Also, CT of the abdomen and pelvis was pe rformed with IV contrast. . Automated exposure control and iterative reconstruction technique were e mployed. The dose-length product was 1365.73 mGy-cm. 100 mL Omnipaque 350 was given IV. FINDINGS: CHEST: --PULMONARY ARTERIES: No pulmonary embolus. --VISUALIZED THORACIC INLET: Normal. --MEDIASTINUM: Aorta/coronary arteries: Mild atheromatous disease. Heart/other: The heart is not enlarged. Lymph nodes: No mediastinal or hilar adenopathy. Precarinal lymph nodes are seen with the largest maribel sures 1.1 cc which is normal. Bilateral hilar adenopathy. Right measures 1.8 cm. --LUNGS: Left lower lobe atelectasis versus pneumonia. Bilateral interstitial thickening suggestive of edema v ersus pneumonitis. Multiple Nodular densities are seen bilaterally which may indicate metastatic lesi ons. Follow-up advised. No pulmonary masses. No effusions. No pneumothorax. --MUSCULOSKELETAL: Bones: Age appropriate degenerative changes of the spine. Superficial soft tissues: The superficial soft tissues are normal. ABDOMEN/PELVIS: --MUSCULOSKELETAL: Superficial soft tissues: The superficial soft tissues are normal. Bones: Age appropriate degenerative changes of the spine. --UPPER ABDOMINAL ORGANS: Liver: Multiple hypodensities suggestive of metastatic lesions. Hepatomegaly. Gallbladder: Stone in the gallbladder with minimal fluid around the gallbladder. Spleen: Normal. Stomach/duodenum: Normal. Pancreas: Possibility of a mass in the head of the pancreas measuring 2.7 cm cannot be excluded. MRI evaluation advised. Adrenals: Normal. Kidneys: Normal kidney stones. No metastatic fracture is seen in the area of the left psoas muscle with calcification. --PELVIC ORGANS: The bladder is underfilled. No bladder stones. --BOWEL AND MESENTERY: Colon: No evidence of diverticulitis. Hypodensity in the transverse colon is seen which may indicate a mass or inflammatory changes. Colonoscopy advised. Ileostomy is seen with surrounding fluid collect ion. Appendix is not demonstrated. Small Bowel: No obstruction. Peritoneum/mesentery: No free air. Free fluid is seen in the right and left paracolic gutters and in the pelvis.. No mesenteric lymphadenopathy. Fat stranding in the mesentery anterior to the transverse colon is seen suggestive of omental caking. --RETROPERITONEUM: Mild atheromatous disease of the abdominal aorta. No retroperitoneal lymphadenop athy. IMPRESSION: CHEST: 1. Precarinal and hilar adenopathy. 2. Multiple nodular densities in both lungs suggestive of metastatic lesions. 3. Bilateral interstitial thickening which may indicate pneumonitis versus edema versus lymphangitis . 4. Left lower lobe atelectasis versus pneumonia. ABDOMEN/PELVIS: 1. Multiple liver metastatic lesions. Hepatomegaly. 2. Cholelithiasis 3. Ascites. 4. Highly suggestive pancreatic mass. MRI is advised. 5. Ileostomy with surrounding fluid collection measuring 7.6 x 5.4 cm. 6. Omental caking with adjacent soft tissue density in the transverse colon suggestive of a mass or inflammatory changes. Reviewed, dictated and finalized at location A. DRIVER IMPRESSION: CHEST: 1. Precarinal and hilar adenopathy. 2. Multiple nodular densities in both lungs suggestive of metastatic lesions. 3. Bilateral interstitial thickening which may indicate pneumonitis versus armida ma versus lymphangitis. 4. Left lower lobe atelectasis versus pneumonia. ABDOMEN/PELVIS: 1. Multiple liver metastatic lesions. Hepatomegaly. 2. Cholelithiasis 3. Ascites. 4. Highly suggestive pancreatic mass. MRI is advised. 5. Ileostomy with surrounding fluid collection measuring 7.6 x 5.4 cm. 6. Omental caking with adjacent soft tissue density in the transverse colon alva ggestive of a mass or inflammatory changes.
--- NOTE | ~2024-11-29 | XR_ITS ---
XR chest 1V portable Ordering provider: Baldemar Greenberg MD History: 68 years Female with . WEAKNESS . Comparison: November 23, 2024 FINDINGS: MEDIASTINUM: The cardiac silhouette is slightly enlarged. Right Port-A-Cath with the tip overlying th e superior vena cava. Congestive maggie. LUNGS: No pneumothorax. Bilateral interstitial thickening more prominent in the lower lobes which may indicate pneumonia versus pulmonary edema. Left pleural effusion cannot be excluded. OTHER: No free air under the diaphragm. IMPRESSION: Cardiomegaly with cardiac decompensation and pulmonary edema. Pneumonia is not excluded. Reviewed, dictated and finalized at location A. ICAL THERAPY ASSISTANT
--- OUTSIDE RECORDS SUMMARY | 2024-11-29 12:53 | XMS_ITS | Clinical Summary ---
Author Organization [facility] Address [address] [place] [address] Care Team Providers Care Woven Blind Loom Tender Name Role Phone Richardson Correa Primary Care Provider + Richardson Correa Unavailable [phone] Aris Meyer MD Unavailable Ghanshyam Calixto DO Unavailable [phone] Domingo Bearden MD Unavailable [phone] Ebony Masters MD Unavailable [phone] Allergies No known active allergies Medications diclofenac [...] from 05/26/2021:Stage IB(cT2, cN0, cM0, G2, ER+, FL+, HER2-) - Signed by Ebony Masters MD on 08/31/2021 Pathologic stage from 09/26/2021:Stage IA(pT1b, pN0(sn), cM0, G2, ER+, FL+, HER2-) - Signed by Ebony Masters MD on 10/12/2021 Malignant neoplasm of upper- outer quadrant of left breast in female, estrogen receptor positive 08/10/2021 Immunizations Immunization Administration Dates Next Due Moderna SARS-CoV-2 Monovalen t Vaccination (12+ YRS) 07/18/2021,12/27/2020,11/30/2020 Pneumococcal Conjugate PCV 13 08/12/2021 Surgical History Surgery Date Site/Laterality Comments HYSTERECTOMY FL LIG/TRNSXJ FLP TUBE ABDL/VAG APPR UNI/BI Tubal Ligation - (Added by TW Conv) FL SALPINGO-OOPHORECTOMY COMPL/PRTL UNI/BI SPX Salpingo-oophorectomy Left Side - (Added by TW Conv) FL COLPOPEXY ABDOMINAL APPROACH Vaginal Surgery Colpopexy Abdominal [...] on file 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 Gender Identity Not on file Sexual Orientation [...] or Tdap) 02/02/2026 02/03/2016 Insurance [facility] Address: [address] [address] [place] [id number] [facility] MED[facility] Address: [address] [address] [place] [id number] Care Teams Woven Blind Loom Tender Relationship Specialty Start Date End Date Richardson Correa PA [address] [place] [id number] PCP - General Internal Medicine 08/31/21 Richardson Correa PA [address] [place] [id number] Internal Medicine 08/31/21 Aris Meyer MD [address] [place] [address] Consulting Physician Cardiology 08/31/21 Ghanshyam Calixto DO [address] [id number] Medical Oncologist/Advisory Internship Hematology and Oncology 08/31/21 Domingo Bearden MD [facility] [address] [place] [address] Surgeon General Surgery 08/31/21 Ebony Masters MD [address] [facility] [address] [place] [address] Radiation Oncologist Radiation Oncology 05/14/24
--- OUTSIDE RECORDS SUMMARY | 2024-11-29 12:53 | XMS_ITS | Clinical Summary ---
Author Organization [facility] Address [address] [place] [address] Care Team Providers Care Socket Puller Name Role Phone Richardson Correa Primary Care Provider + Aris Meyer MD Unavailable [phone] Allergies No known active allergies Medications biotin 300 MCG Tab Take 1 tablet by mouth daily. Active Cholecalciferol (VITAMIN D3) 50 MCG (1999 UT) Tab Take 1 tablet by mouth daily. [...] Comments Blood Pressure 167/88 09/26/2021 4:12 PM FURNACE BUILDER Pulse 99 09/26/2021 4:12 PM FURNACE BUILDER Temperature 37 C (98.6 F) 09/26/2021 4:12 PM FURNACE BUILDER Respiratory Rate 20 09/26/2021 4:12 PM FURNACE BUILDER Oxygen Saturation 93% 09/26/2021 4:12 PM FURNACE BUILDER Inhaled Oxygen Concentration - - Weight 88.4 kg (194 lb 14.2 oz) 022 11:00 AM FURNACE BUILDER Height 154.9 cm (5' 1 ) 09/26/2021 11:0 0 AM FURNACE BUILDER Body Mass Index 36.82 09/26/2021 11:00 AM FURNACE BUILDER Plan of Treatment Health Maintenance Due Date [...] age to complete this topic Insurance [facility] Care Teams Socket Puller Relationship Specialty Start Date End Date Richardson Correa PA PCP - General PHYSICIAN AIR SEALING TECHNICIAN 09/13/21 [place] [address] [place] [address] CARDIOVASCULAR DISEASE 09/13/21
--- OUTSIDE RECORDS SUMMARY | 2024-11-29 12:53 | XMS_ITS | Referral Summary ---
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 Gender Identity Not on file Sexual Orientation [...] Insurance [employer] Care Teams Gum Remover Relationship Specialty Start Date End Date Richardson Correa PA [address] [place] [id number] PCP - General Internal Medicine 08/31/21 Richardson Correa PA [address] [place] [address] Internal Medicine 08/31/21 Aris Meyer MD [address] [place] [address] Consulting Physician Cardiology 08/31/21 Ghanshyam Calixto DO [address] [place] [address] [id number] Medical Oncologist/Acoustical Logging Engineer Hematology and Oncology 08/31/21 Domingo Bearden MD [address] [place] [phone] Surgeon General Surgery 08/31/21 Ebony Masters MD [address] [place] [phone] Radiation Oncologist Radiation Oncology 05/14/24
--- OUTSIDE RECORDS SUMMARY | 2024-11-29 12:53 | XMS_ITS ---
Author Organization [facility] Address [address] [place] [address] Care Team Providers Care Kiln Burner Helper Name Role Phone Richardson Correa Primary Care Provider + Richardson Correa Unavailable [phone] Aris Meyer MD Unavailable Ghanshyam Calixto DO Unavailable [phone] Domingo Bearden MD Unavailable [phone] Ebony Masters MD Unavailable [phone] Active Problems Problem Noted Date Diagnosed Date Personal history of radiation therapy 12/26/2021 Malignant neoplasm of upper- outer quadrant of left breast in female, estrogen receptor positive 08/31/2021 Cancer Staging:Clinical stage from 05/26/2021:Stage IB(cT2, cN0, cM0, G2, ER+, [place]+, HER2-) - Signed by Ebony Masters MD on 08/31/2021 Pathologic stage from 09/26/2021:Stage IA(pT1b, pN0(sn), cM0, G2, ER+, [place]+, HER2-) - Signed by Ebony Masters MD [...]
--- OUTSIDE RECORDS SUMMARY | 2024-11-29 12:54 | XMS_ITS | Data Portability ---
Author Organization [facility] [place] Address [address] [place] [address] Care Team Providers Care Labourers Name Role Phone EMPERATRIZ MEYER Primary Care Provider [phone] Assessment No assessment recorded. Plan of Treatment Reminders Order Date Submit Date Provider Last Modified By Organization Details Last Modified Time Details Appointments ANY 15 2024 09:00A M Emperatriz Meyer MD Not available Not available Not available Lab HbA1c (hemoglob in A1c), blood 2023 024 [facility], [address] [place] [address], [address], [place], [address], 07/08/2024 08:29:59 vitamin D, 25-hydrox y, total, serum 2023 024 [facility], [address] [place] [address], [address], [place], [address], 07/08/2024 08:30:00 CMP, serum or plasma 2023 024 [facility], [address] [place] [address], [address], [place], [address], 07/08/2024 08:29:58 lipid panel, serum 2023 024 [facility], [address] [place] [address], [address], [place], [address], 07/08/2024 08:29:56 vitamin D, 25-hydrox y, total, serum 2022 023 [facility], [address], [address], [place], [address], 07/17/2023 08:26:35 CMP, serum or plasma 2022 023 [facility], [address], [address], [place], [address], 07/17/2023 06:15:55 lipid panel, serum 2022 023 [facility], [address], [address], [place], [address], 07/17/2023 06:15:54 CBC 2022 023 [facility], [address], [address], [place], [address], 07/17/2023 06:15:56 TSH, ultra-sen sitive, serum 2022 023 [facility], [facility] [address], [address], [place], [address], 07/17/2023 08:26:34 noninvasi ve colorecta l cancer DNA + occult blood screening , QL, stool 2022 023 [facility] (Cologuard Orders Only), [address], [address], [facility] [place] [place], [address], 05/31/2023 03:58:30 rf (rheumato id factor), serum 2022 023 [facility], [facility] [address], [address], [place], [address], 01/11/2023 09:16:24 C reactive protein, QN, serum or plasma 2022 023 [facility], [address], [address], [place], [address], 01/11/2023 09:16:25 erythrocy te sedimenta tion rate by lisa n method 2022 023 [facility], [address], [address], [place], [address], 01/11/2023 09:16:23 CBC 2022 023 [facility], [address], [address], [place], [address], 01/10/2023 03:39:55 lipid panel, serum 2022 023 [facility], [address], [address], [place], [address], 01/10/2023 03:39:56 vitamin D, 25-hydrox y, total, serum 2022 023 [facility], [address], [address], [place], [address], 01/11/2023 09:16:26 noninvasi ve colorecta l cancer DNA + occult blood screening , QL, stool 2022 023 [facility], [address], [address], [place], [address], 01/08/2023 11:03:49 CMP, serum or plasma 2022 023 [facility], [address], [address], [place], [address], 01/10/2023 03:39:56 Referral dermatolo gist referral 2023 024 [email or web address] Kirk Hardy MD ([facility], Dermatology), [address] [place], [address], 03/30/2024 01:42:29 Procedures None recorded. Surgeries None recorded. Imaging MAMMO, screening , digital, bilateral - Hx papillary carcinoma left breast [address] (Mammography) , [address], [place], [address], 10/17/2024 09:59:11 MAMMO, screening , bilateral 2022 023 [facility] ([facility] Sched[facility]), [address] [place], [address], 06/05/2023 14:58:34 XR, wrist + hand 2022 023 [facility] ([facility]), [address] [place], [address], 01/11/2023 02:52:41 Medication Orders losartan 100 mg-hydroc hlorothia zide 12.5 mg tablet 2023 024 [id number], [address] [place], [place], [id number], 07/07/2024 10:38:53 metoprolo l succinate ER 50 mg tablet,ex tended release 24 hr 2023 024 [facility] #63110, [address] [place], [place], [id number], 07/07/2024 10:38:53 amlodipin e 5 mg tablet 2023 024 [facility] #84646, [address] [place], [place], [id number], 07/07/2024 10:38:53 pravastat in 40 mg tablet 2023 024 [facility] #79323, [address] [place], [place], [id number], 07/07/2024 10:40:07 ezetimibe 10 mg tablet 2023 024 [facility] #69936, [address], [place], [id number], 07/07/2024 10:38:52 potassium chloride ER 10 mEq tablet,ex tended release 2023 024 [facility] #60177, [address], [place], [id number], 07/07/2024 10:38:53 losartan 100 mg-hydroc hlorothia zide 12.5 mg tablet 2022 023 [facility] #30051, [address] [place], [place], [id number], 07/10/2023 10:38:22 ibuprofen 600 mg tablet 2022 023 [facility] #50451, [address] [place], [place], [id number], 01/09/2024 09:52:03 losartan 50 mg-hydroc hlorothia zide 12.5 mg tablet 2022 023 [facility] #68059, [address] [place], [place], [id number], 01/09/2024 09:52:10 amlodipin e 5 mg tablet 2022 023 [facility] #24829, [address] [place], [place], [id number], 05/10/2023 10:36:53 Patient TargetsNo targets recorded. Patient Instructions Encounter Date Encounter Id Patient Instructions Last Modified By Organization Details Last Modified Time 01/08/2023 [id number] When You Want to Lose Weight: Care Instructions Not available 01/08/2023 11:03:30 A healthy lifestyle: care instructions [email or web address] Not available 01/08/2023 11:03:30 high cholesterol : care instructions [email or web address] Not available 01/08/2023 11:03:29 learning about high blood pressure [email or web address] Not available 01/08/2023 11:03:30 05/10/2023 [id number] When You Want to Lose Weight: Care Instructions [email or web address] Not available 05/10/2023 10:36:42 A healthy lifestyle: care instructions [email or web address] Not available 05/10/2023 10:36:41 learning about breast cancer screening Not available 05/10/2023 10:36:42 07/10/2023 [id number] back care and preventing injuries: care instructions [email or web address] Not available 07/10/2023 10:37:54 When You Want to Lose Weight: Care Instructions [email or web address] Not available 07/10/2023 10:37:54 A healthy lifestyle: care instructions [email or web address] Not available 07/10/2023 10:37:53 learning about high blood pressure [email or web address] Not available 07/10/2023 10:37:54 high cholesterol : care instructions Not available 07/10/2023 10:37:53 hypokalemia: car e instructions Not available 07/10/2023 10:37:54 01/09/2024 [id number] back care and preventing injuries: care instructions Not available 01/09/2024 10:35:11 When You Want to Lose Weight: Care Instructions [email or web address] Not available 01/09/2024 10:35:11 high cholesterol : care instructions [email or web address] Not available 01/09/2024 10:35:11 A healthy lifestyle: care instructions [email or web address] Not available 01/09/2024 10:35:11 learning about high blood pressure [email or web address] Not available 01/09/2024 10:35:11 hypokalemia: car e instructions Not available 01/09/2024 10:35:11 07/07/2024 [id number] learning about breast cancer screening [email or web address] Not available 07/07/2024 10:33:31 When You Want to Lose Weight: Care Instructions [email or web address] Not available 07/07/2024 10:33:31 A healthy lifestyle: care instructions [email or web address] Not available 07/07/2024 10:33:31 learning about high blood pressure [email or web address] Not available 07/07/2024 10:33:31 high cholesterol : care instructions [email or web address] Not available 07/07/2024 10:33:31 Reason for Referral Host And Hostess Referral for D isorder of skin Multiple skin lesions ears, chest Referring Physician: Emperatriz Meyer, Internal Medicine, Encounter Date: 01/09/2024 Results Created Date Observation Date Name Description Value Unit Range Abnormal Flag Note LastModifiedBy Organization Detail LastModifiedTime 01/10/2001/09/2023 LIPID PANEL cholesterol, total 130.6 mg/dL 140.0- 200.0 below low normal Not Available [facility] Department [address] [place] [address], [address], 01/09/2023 19:09:16 01/10/2001/09/2023 LIPID PANEL triglyceride s 120 mg/dL <=150 Not Available [facility] Department [address] [place], [address], 01/09/2023 19:09:16 01/10/2001/09/2023 LIPID PANEL HDL cholesterol 41.1 mg/dL 40.0-1 00.0 Not Available [facility] Department [address] [place], [address], 01/09/2023 19:09:16 01/10/2001/09/2023 LIPID PANEL VLDL cholesterol [place] 24.00 mg/dL 5.00-4 0.00 Not Available [facility] Department [address] [place], [address], 01/09/2023 19:09:16 01/10/20 23 01/09/2023 LIPID PANEL LDL chol calc ([facility]) 67.9 Not Available [facility] Department [address] [place], [address], 01/09/2023 19:09:16 01/10/20 23 01/09/2023 COMP. METAB OLIC PANEL (14) glucose 98 mg/dL 65-99 ANION GP 20.0 mmol/ L N OSMOL 286.0 mOsM/ L N REFER ENCE RANGE : 275.0 -301. 0 Not Available [facility] Department [address] [place], [address], 01/09/2023 19:09:16 01/10/20 23 01/09/2023 COMP. METAB OLIC PANEL (14) BUN 15 mg/dL 8-26 Not Available [facility] Department [address] [place], [address], 01/09/2023 19:09:16 01/10/20 23 01/09/2023 COMP. METAB OLIC PANEL (14) creatinine 0.59 mg/dL 0.50-1 .40 Not Available [facility] Department [address] [place], [address], 01/09/2023 19:09:16 01/10/20 23 01/09/2023 COMP. METAB OLIC PANEL (14) eGFR 99 mL/mi n/1.7 3 >=60 Not Available [facility] Department [address] [place], [address], 01/09/2023 19:09:16 01/10/20 23 01/09/2023 COMP. METAB OLIC PANEL (14) BUN/creatini ne ratio 25.9 Not Available [facility] Department [address] [place], [address], 01/09/2023 19:09:16 01/10/20 23 01/09/2023 COMP. METAB OLIC PANEL (14) sodium 143.0 mmol/ L 136.0- 144.0 Not Available [facility] Department [address] [place], [address], 01/09/2023 19:09:16 01/10/20 23 01/09/2023 COMP. METAB OLIC PANEL (14) potassium 3.8 mmol/ L 3.5-5. 3 Not Available [facility] Department [address] [place], [address], 01/09/2023 19:09:16 01/10/20 23 01/09/2023 COMP. METAB OLIC PANEL (14) chloride 102 mmol/ l 101-11 1 Not Available [facility] Department [address] [place], [address], 01/09/2023 19:09:16 01/10/20 23 01/09/2023 COMP. METAB OLIC PANEL (14) carbon dioxide, total 24.3 mmol/ L 21.0-3 2.0 Not Available [facility] Department [address] [place], [address], 01/09/2023 19:09:16 01/10/20 23 01/09/2023 COMP. METAB OLIC PANEL (14) calcium 10.2 mg/dL 8.2-10 .0 above high normal Not Available [facility] Department [address] [place], [address], 01/09/2023 19:09:16 01/10/20 23 01/09/2023 COMP. METAB OLIC PANEL (14) protein, total 6.8 g/dL 6.7-8. 2 Not Available [facility] Department [address] [place], [address], 01/09/2023 19:09:16 01/10/20 23 01/09/2023 COMP. METAB OLIC PANEL (14) albumin 4.5 g/dL 3.5-5. 5 Not Available [facility] Department [address] [place], [address], 01/09/2023 19:09:16 01/10/20 23 01/09/2023 COMP. METAB OLIC PANEL (14) globulin, total 2.3 g/dL 1.5-4. 5 Not Available [facility] Department [address] [place], [address], 01/09/2023 19:09:16 01/10/20 23 01/09/2023 COMP. METAB OLIC PANEL (14) A/G ratio 2.0 Not Available [facility] Department [address] [place], [address], 01/09/2023 19:09:16 01/10/20 23 01/09/2023 COMP. METAB OLIC PANEL (14) bilirubin, total 1.0 mg/dL 0.0-1. 2 Not Available [facility] Department [address] [place], [address], 01/09/2023 19:09:16 01/10/20 23 01/09/2023 COMP. METAB OLIC PANEL (14) alkaline phosphatase 133.4 IU/L 42.0-1 21.0 above high normal Not Available [facility] Department [address] [place], [address], 01/09/2023 19:09:16 01/10/20 23 01/09/2023 COMP. METAB OLIC PANEL (14) AST (SGOT) 22.3 U/L 10.0-4 2.0 Not Available [facility] Department [address] [place], [address], 01/09/2023 19:09:16 01/10/20 23 01/09/2023 COMP. METAB OLIC PANEL (14) ALT (SGPT) 27.5 U/L 10.0-6 0.0 Not Available [facility] Department [address] [place], [address], 01/09/2023 19:09:16 01/10/20 23 01/09/2023 CBC, PLATE LET, NO DIFFE RENTI AL WBC 7.7 K/uL 3.4-10 .8 Not Available [facility] [address] [place], [address], 01/09/2023 19:09:17 01/10/20 23 01/09/2023 CBC, PLATE LET, NO DIFFE RENTI AL RBC 4.7 M/uL 4.2-5. 4 Not Available [facility] Department [address] [place], [address], 01/09/2023 19:09:17 01/10/2001/09/2023 CBC, PLATE LET, NO DIFFE RENTI AL hemoglobin 13.7 g/dL 11.5-1 5.5 Not Available [facility] Department [address] [place], [address], 01/09/2023 19:09:17 01/10/2001/09/2023 CBC, PLATE LET, NO DIFFE RENTI AL hematocrit 41.6 % 36.0-4 8.0 Not Available [facility] Department [address] [place], [address], 01/09/2023 19:09:17 01/10/2001/09/2023 CBC, PLATE LET, NO DIFFE RENTI AL MCV 89 fL 80-95 Not Available [facility] Department [address] [place], [address], 01/09/2023 19:09:17 01/10/20 23 01/09/2023 CBC, PLATE LET, NO DIFFE RENTI AL MCH 29 pg 27-32 Not Available [facility] Department [address] [place], [address], 01/09/2023 19:09:17 01/10/2001/09/2023 CBC, PLATE LET, NO DIFFE RENTI AL MCHC 33 g/dL 32-36 Not Available [facility] Department [address] [place], [address], 01/09/2023 19:09:17 01/10/20 23 01/09/2023 CBC, PLATE LET, NO DIFFE RENTI AL RDW 12.1 % 11.5-1 4.5 Not Available [facility] Department [address] [place], [address], 01/09/2023 19:09:17 01/10/20 23 01/09/2023 CBC, PLATE LET, NO DIFFE RENTI AL platelets 173 K/uL 155-37 9 MPV 10.5 FL 8.9-1 2.7 N Not Available [facility] Department [address] [place], [address], 01/09/2023 19:09:17 01/10/20 23 01/09/2023 CBC, PLATE LET, NO DIFFE RENTI AL NRBC 0 % Not Available [facility] [address] [facility], [place], [address], 01/09/2023 19:09:17 01/10/20 23 01/11/2023 SEDIM ENTAT ION RATE- WESTE RGREN sedimentatio n rate-westerg jumana 12 mm/HR 0-40 Not Available [facility] ([facility]) [address] [place], [address], 01/11/2023 09:16:23 01/10/20 23 01/10/2023 RHEUM ATOID FACTO R (RF) rheumatoid factor (rf) <10.0 IU/mL <14.0 Not Available [facility] ([facility]) [address] [place], [address], 01/11/2023 09:16:24 01/10/2001/10/2023 C-ESTEFANI CTIVE PROTE IN, QUANT C-reactive protein, quant 6 mg/L 0-10 Not Available [facility] ([facility]) [address] [place], [address], 01/11/2023 09:16:25 01/10/20 23 01/10/2023 VITAM IN [...] Florencio sahu DC: The Natio nal [facility] Press . 2. Arielle sharif MF, Olga pena [place], Fletcher off-F caroline i DUMONT, et al. Evalu ation , treat ment, and preve ntion of vitam in D defic iency : an Endoc rine Socie ty clini [place] pract ice guide line. JCEM. 2010; 96(7) :1911 -30. Not Available [facility] ([facility]) [address] [place], [address], 01/11/2023 09:16:26 01/11/20 23 01/11/2023 OCCUL T BLOOD , FECAL , IA occult blood, fecal, ia Negati ve negati ve Not Available [facility] ([facility]) [address] [place], [address], 01/11/2023 15:10:31 05/22/20 23 05/22/2023 COLOG UARD [...] is negat redd. TEST DESCR IPTIO N: [place] site algor ithmi c julio sis of [...] years or older , who are at [facility] for color ectal cance r (CRC) . Colog uard has been appro yao for use by the [place] FDA. The perfo rmanc e of Colog uard was estab lishe d in a cross secti onal study of [facility] adult s aged 50-84 . Colog [...] of 10,00 0 indiv idual s at [facility] risk for color ectal cance r who were scree russell with both Colog uard and colon oscop y. (Kole Rice et al, N Engl J Med 2014; 370(1 4):12 86-12 97.) Colog uard may produ ce a false negat redd or false posit erdd resul t (no color ectal cance r [...] at www.c domingo robert.c om. Not Available [facility] (Cologuard Orders Only) [address], [place], [address], 05/31/2023 03:58:30 07/16/2007/16/2023 LIPID PANEL cholesterol, total 128 mg/dL 100-19 9 Not Available [facility] Department [address] [place], [address], 07/17/2023 06:15:54 07/16/2007/16/2023 LIPID PANEL triglyceride s 123 mg/dL 0-149 Not Available [facility] Department [address] [place], [address], 07/17/2023 06:15:54 07/16/2007/16/2023 LIPID PANEL HDL cholesterol 42 mg/dL 40-999 Not Available [facility] Department [address] [place], [address], 07/17/2023 06:15:54 07/16/2007/16/2023 LIPID PANEL VLDL cholesterol [place] 25 mg/dL 5-40 Not Available [facility] Department [address] [place], [address], 07/17/2023 06:15:54 07/16/2007/16/2023 LIPID PANEL LDL chol calc ([facility]) 79 mg/dL 0-99 Not Available [facility] Department [address] [place], [address], 07/17/2023 06:15:54 07/16/2007/16/2023 COMP. METAB OLIC PANEL (14) glucose 94 mg/dL 70-99 Not Available [facility] Department [address] [place], [address], 07/17/2023 06:15:55 07/16/2007/16/2023 COMP. METAB OLIC PANEL (14) BUN 18 mg/dL 8-27 Not Available [facility] Department [address] [place], [address], 07/17/2023 06:15:55 07/16/2007/16/2023 COMP. METAB OLIC PANEL (14) creatinine 0.52 mg/dL 0.76-1 .27 below low normal Not Available [facility] Department [address] [place] [address], [address], 07/17/2023 06:15:55 07/16/2007/16/2023 COMP. METAB OLIC PANEL (14) eGFR 102 >=60 Units for eGFR value s are mL/mi n/1.7 3 The eGFR Calcu latio n has not been valid ated for patie nts under the age of 18. If test resul ts are displ ayed for a patie nt under the age of 18, disre liborio that value . Not Available [facility] Department [address] [place], [address], 07/17/2023 06:15:55 07/16/2007/16/2023 COMP. METAB OLIC PANEL (14) BUN/creatini ne ratio 35 10-28 above high normal Not Available [facility] Department [address] [place], [address], 07/17/2023 06:15:55 07/16/2007/16/2023 COMP. METAB OLIC PANEL (14) sodium 143 mmol/ L 134-14 4 Not Available [facility] Department [address] [place], [address], 07/17/2023 06:15:55 07/16/2007/16/2023 COMP. METAB OLIC PANEL (14) potassium 3.3 mmol/ L 3.5-5. 2 below low normal Not Available [facility] Department [address] [place] [address], [address], 07/17/2023 06:15:55 07/16/2007/16/2023 COMP. METAB OLIC PANEL (14) chloride 101 mmol/ L 96-106 Not Available [facility] Department [address] [place] [address], [address], 07/17/2023 06:15:55 07/16/2007/16/2023 COMP. METAB OLIC PANEL (14) carbon dioxide, total 27 mmol/ L 20-29 Not Available [facility] Department [address] [place] [address], [address], 07/17/2023 06:15:55 07/16/2007/16/2023 COMP. METAB OLIC PANEL (14) calcium 9.2 mg/dL 8.7-10 .3 Not Available [facility] Department [address] [place] [address], [address], 07/17/2023 06:15:55 07/16/2007/16/2023 COMP. METAB OLIC PANEL (14) protein, total 6.7 g/dL 6.0-8. 5 Not Available [facility] Department [address] [place] [address], [address], 07/17/2023 06:15:55 07/16/2007/16/2023 COMP. METAB OLIC PANEL (14) albumin 4.3 g/dL 3.8-4. 8 Not Available [facility] Department [address] [place] [address], [address], 07/17/2023 06:15:55 07/16/2007/16/2023 COMP. METAB OLIC PANEL (14) globulin, total 2.4 g/dL 1.5-4. 5 Not Available [facility] Department [address] [place], [address], 07/17/2023 06:15:55 07/16/2007/16/2023 COMP. METAB OLIC PANEL (14) A/G ratio 1.8 1.2-2. 2 Not Available [facility] Department [address] [place], [address], 07/17/2023 06:15:55 07/16/2007/16/2023 COMP. METAB OLIC PANEL (14) bilirubin, total 0.8 mg/dL 0.0-1. 2 Not Available [facility] [address] [place], [address], 07/17/2023 06:15:55 07/16/2007/16/2023 COMP. METAB OLIC PANEL (14) alkaline phosphatase 129 IU/L 44-121 above high normal Not Available [facility] [address] [place], [address], 07/17/2023 06:15:55 07/16/2007/16/2023 COMP. METAB OLIC PANEL (14) AST (SGOT) 21 IU/L 0-40 Not Available [facility] Department [address] [place] [address], [address], 07/17/2023 06:15:55 07/16/2007/16/2023 COMP. METAB OLIC PANEL (14) ALT (SGPT) 29 IU/L 0-32 Not Available [facility] [address] [place], [address], 07/17/2023 06:15:55 07/16/2007/16/2023 CBC, PLATE LET, NO DIFFE RENTI AL WBC 7.5 x10e3 /uL 3.4-10 .8 Not Available [facility] [address] [place] [address], [address], 07/17/2023 06:15:56 07/16/2007/16/2023 CBC, PLATE LET, NO DIFFE RENTI AL RBC 4.66 x10e6 /uL 3.77-5 .28 Not Available [facility] [address] [place], [address], 07/17/2023 06:15:56 07/16/2007/16/2023 CBC, PLATE LET, NO DIFFE RENTI AL hemoglobin 13.4 g/dL 11.1-1 5.9 Not Available [facility] [address] [place], [address], 07/17/2023 06:15:56 07/16/2007/16/2023 CBC, PLATE LET, NO DIFFE RENTI AL hematocrit 41.7 % 34.0-4 6.6 Not Available [facility] [address] [place], [address], 07/17/2023 06:15:56 07/16/2007/16/2023 CBC, PLATE LET, NO DIFFE RENTI AL MCV 90 fL 79-97 Not Available [facility] [address] [place], [address], 07/17/2023 06:15:56 07/16/2007/16/2023 CBC, PLATE LET, NO DIFFE RENTI AL MCH 28.8 pg 26.6-3 3.0 Not Available [facility] [address] [place], [address], 07/17/2023 06:15:56 07/16/2007/16/2023 CBC, PLATE LET, NO DIFFE RENTI AL MCHC 32.1 g/dL 31.5-3 5.7 Not Available [facility] [address] [place], [address], 07/17/2023 06:15:56 07/16/2007/16/2023 CBC, PLATE LET, NO DIFFE RENTI AL RDW 12.7 % 11.5-1 4.5 Not Available [facility] [address] [place], [address], 07/17/2023 06:15:56 07/16/2007/16/2023 CBC, PLATE LET, NO DIFFE RENTI AL platelets 194 x10e3 /uL 150-45 0 Mean Plate let Volum e 10.6 fL 8.9-1 2.7 N Not Available [facility] [address] [place], [address], 07/17/2023 06:15:56 07/16/2007/16/2023 CBC, PLATE LET, NO DIFFE RENTI AL NRBC 0 % 0-0 Not Available [facility] [address] [place], [address], 07/17/2023 06:15:56 07/16/2007/17/2023 TSH TSH 2.340 uIU/m L 0.450- 4.500 Not Available [facility] ([facility]) [address] [facility], [place], [address], 07/17/2023 08:26:34 07/16/2007/17/2023 VITAM IN D, 25-HY [...] and D. Florencio sahu DC: The Natio [facility] Press . 2. Arielle sharif MF, Olga pena [place], Fletcher off-F errar i DUMONT, et al. Evalu ation , treat ment, and preve ntion of vitam in D defic iency : an Endoc rine Socie ty clini [place] pract ice guide line. JCEM. 2010; 96(7) :1911 -30. Not Available [facility] ([facility]) [address] [facility], [place], [address], 07/17/2023 08:26:35 07/07/2007/08/2024 LIPID PANEL cholesterol, total 136 mg/dL 100-19 9 Not Available [facility] ([facility]) [address] [place], [address], 07/08/2024 08:29:56 07/07/2007/08/2024 LIPID PANEL triglyceride s 162 mg/dL 0-149 above high normal Not Available [facility] ([facility]) [address] [place], [address], 07/08/2024 08:29:56 07/07/2007/08/2024 LIPID PANEL HDL cholesterol 40 mg/dL >39 Not Available [facility] ([facility]) [address] [facility], [place], [address], 07/08/2024 08:29:56 07/07/2007/08/2024 LIPID PANEL VLDL cholesterol [place] 28 mg/dL 5-40 Not Available [facility] ([facility]) [address] [place], [address], 07/08/2024 08:29:56 07/07/2007/08/2024 LIPID PANEL LDL chol calc ([facility]) 68 mg/dL 0-99 Not Available [facility] ([facility]) [address] [place], [address], 07/08/2024 08:29:56 07/07/2007/08/2024 COMP. METAB OLIC PANEL (14) glucose 102 mg/dL 70-99 above high normal Not Available [facility] ([facility]) [address] [facility] [place], [address], 07/08/2024 08:29:58 07/07/2007/08/2024 COMP. METAB OLIC PANEL (14) BUN 16 mg/dL 8-27 Not Available [facility] ([facility]) [address] [facility] [place], [address], 07/08/2024 08:29:58 07/07/2007/08/2024 COMP. METAB OLIC PANEL (14) creatinine 0.76 mg/dL 0.57-1 .00 Not Available [facility] ([facility]) [address] [facility] [place], [address], 07/08/2024 08:29:58 07/07/2007/08/2024 COMP. METAB OLIC PANEL (14) eGFR 85 mL/mi n/1.7 3 >59 Not Available [facility] ([facility]) [address] [facility], [place], [address], 07/08/2024 08:29:58 07/07/2007/08/2024 COMP. METAB OLIC PANEL (14) BUN/creatini ne ratio 21 12-28 Not Available [facility] ([facility]) [address] [facility] [place], [address], 07/08/2024 08:29:58 07/07/2007/08/2024 COMP. METAB OLIC PANEL (14) sodium 139 mmol/ L 134-14 4 Not Available [facility] ([facility]) [address] [facility] [place], [address], 07/08/2024 08:29:58 07/07/2007/08/2024 COMP. METAB OLIC PANEL (14) potassium 3.8 mmol/ L 3.5-5. 2 Not Available [facility] ([facility]) [address] [facility] [place], [address], 07/08/2024 08:29:58 07/07/20 24 07/08/2024 COMP. METAB OLIC PANEL (14) chloride 98 mmol/ L 96-106 Not Available [facility] ([facility]) [address] [facility], [place], [address], 07/08/2024 08:29:58 07/07/20 24 07/08/2024 COMP. METAB OLIC PANEL (14) carbon dioxide, total 25 mmol/ L 20-29 Not Available [facility] ([facility]) [address] [facility], [place], [address], 07/08/2024 08:29:58 07/07/2007/08/2024 COMP. METAB OLIC PANEL (14) calcium 9.7 mg/dL 8.7-10 .3 Not Available [facility] ([facility]) [address] [facility], [place], [address], 07/08/2024 08:29:58 07/07/2007/08/2024 COMP. METAB OLIC PANEL (14) protein, total 7.1 g/dL 6.0-8. 5 Not Available [facility] ([facility]) [address] [facility], [place], [address], 07/08/2024 08:29:58 07/07/2007/08/2024 COMP. METAB OLIC PANEL (14) albumin 4.4 g/dL 3.9-4. 9 Not Available [facility] ([facility]) [address] [facility], [place], [address], 07/08/2024 08:29:58 07/07/2007/08/2024 COMP. METAB OLIC PANEL (14) globulin, total 2.7 g/dL 1.5-4. 5 Not Available [facility] ([facility]) [address] [facility], [place], [address], 07/08/2024 08:29:58 07/07/2007/08/2024 COMP. METAB OLIC PANEL (14) bilirubin, total 0.8 mg/dL 0.0-1. 2 Not Available [facility] ([facility]) [address] [place], [address], 07/08/2024 08:29:58 07/07/20 24 07/08/2024 COMP. METAB OLIC PANEL (14) alkaline phosphatase 108 IU/L 44-121 Not Available [facility] ([facility]) [address] [place], [address], 07/08/2024 08:29:58 07/07/2007/08/2024 COMP. METAB OLIC PANEL (14) AST (SGOT) 23 IU/L 0-40 Not Available [facility] ([facility]) [address] [place], [address], 07/08/2024 08:29:58 07/07/20 24 07/08/2024 COMP. METAB OLIC PANEL (14) ALT (SGPT) 19 IU/L 0-32 Not Available [facility] ([facility]) [address] [place], [address], 07/08/2024 08:29:58 07/07/2007/08/2024 HEMOG LOBIN A1C hemoglobin A1C 6.2 % 4.8-5. 6 above high normal Predi abete s: 5.7 - 6.4 Diabe mesfin: >6.4 Glyce leona contr ol for adult s with diabe mesfin: <7.0 Not Available [facility] ([facility]) [address] [place], [address], 07/08/2024 08:29:59 07/07/2007/08/2024 VITAM IN D, 25-HY [...] um and D. Florencio sahu [place]: [facility] . 2. Arilele sharif MF, Olga pena [place], Bisch off-F errclaude i DUMONT, et al. Evalu ation , treat ment, and preve ntion of vitam in D defic iency : an Endoc rine Socie ty clini [place] pract ice guide line. JCEM. 2010; 96(7) :1911 -30. Not Available [facility] ([facility]) [address] [facility], [place], [address], 07/08/2024 08:30:00 10/07/1910/07/2024 urina lysis , dipst [...] 10/07/2024 urina lysis , dipst ick Specific [place] 1.020 Not Available In-Off ice Order Internal [...] + hand No observ ation record ed. [address] [place], [address], 01/24/2023 14:16:12 03/09/20 23 03/09/2023 CT, abdom en + pelvi s, w/o contr ast No observ ation record ed. [address], [place], [address], 03/13/2023 16:43:45 06/05/20 23 06/05/2023 MAMMO , scree ana, bilat eral No observ ation record ed. [facility] [address] [place], [address], 06/27/2023 12:53:30 07/03/2007/03/2023 US, breas t, unila teral No observ ation record ed. [facility] [address] [place], [address], 07/05/2023 09:20:36 07/03/2007/03/2023 MAMMO , diagn ostic , unila teral No observ ation record ed. [address] ([employer]) [address] [place], [address], 07/03/2023 14:20:42 10/15/19 25 10/15/2024 CT, abdom en + pelvi s, w/ contr ast No observ ation record ed. [address] [address], [place], [address], 10/16/2024 12:21:18 10/17/19 25 10/17/2024 US, abdom en No observ ation record ed. [address] [address], [place], [address], 10/20/2024 12:22:07 10/21/19 25 10/21/2024 US, ascencion x, gypsy s, lower extre mity No observ ation record ed. [address] [address], [place], [address], 10/22/2024 10:17:52 10/21/19 25 10/21/2024 CT, abdom en + pelvi s, w/ contr ast No observ ation record ed. [address] [address], [place], [address], 10/22/2024 10:38:39 10/23/19 25 10/23/2024 CT, chest , w/ contr ast No observ ation record ed. [address] [address], [place], [address], 10/25/2024 16:48:20 10/23/19 25 10/23/2024 CT, abdom en + pelvi s, w/ contr ast No observ ation record ed. [address] [address], [place], [address], 10/25/2024 16:48:20 10/24/19 25 10/24/2024 US, abdom en, limit ed No observ ation record ed. [address] [address], [place], [address], 10/28/2024 23:22:35 10/27/19 25 10/27/2024 XR, chest No observ ation record ed. [address] [address], [place], [address], 10/29/2024 10:02:07 10/27/19 25 10/27/2024 fluor oscop y (PROC ) No observ ation record ed. [address] [address], [place], [address], 10/29/2024 10:02:33 11/03/19 25 11/03/2024 CT, abdom en + pelvi s, w/ contr ast No observ ation record ed. [address] [address], [place], [address], 11/11/2024 12:28:21 11/04/19 25 11/04/2024 XR, chest No observ ation record ed. [address] [address], [place], [address], 11/11/2024 12:28:48 11/18/19 25 11/18/2024 CT, chest , w/o contr ast No observ ation record ed. [address], [place], [address], 11/26/2024 13:47:53 11/19/19 25 11/19/2024 imagi ng/di agnos tic resul t No observ ation record ed. [email or web address], [place], [address], 11/20/2024 10:18:26 11/20/19 25 11/20/2024 imagi ng/di agnos tic resul t No observ ation record ed. [address], [place], [address], 11/20/2024 14:42:56 11/21/19 25 11/21/2024 NM, hepat obili yasmine scan No observ ation record ed. [address], [place], [address], 11/26/2024 13:47:54 11/24/19 25 11/23/2024 imagi ng/di agnos tic resul t No observ ation record ed. [address], [place], [address], 11/23/2024 13:52:55 Result Notes None recorded. Problems Name Problem SNOMED Code Status Onset Date Resolution Date Notes Provider Name and Address Organization Details Recorded Time Low back pain 154543992 Active 2017 Not Available [facility] 2 06:06:52 Dysuria 72308844 Active 2017 Not Available [facility] 2 06:06:52 Hypokale shana 04401687 Active 2018 Not Available [facility] 2 06:06:52 Administ ration of influenz a vaccine Active 2018 Not Available [facility] 2 06:06:52 Normal grief reaction 115930675 Active 2019 Not Available [facility] 2 06:06:52 High hemoglob in A1c level 713048076 Active 2019 Not Available [facility] 2 06:06:52 Injury of ribs 030584280 Active 2020 right Not Available [facility] 2 06:06:52 Cardiome mahendra 3963350 Active 2020 Not Available [facility] 2 06:06:52 Screenin g for malignan t neoplasm of breast Active 2020 Not Available [facility] 2 06:06:52 Mammogra phy abnormal 851394490 Active 2020 Not Available [facility] 06:06:52 Cervical spondylo sis 870312262 Active 2020 see XR cervical spine 05/27/2021 Not Available [facility] 2 06:06:52 Ultrason ography of breast abnormal 69401845922 668501 Active 2020 Not Available [facility] 2 06:06:52 Administ ration of pneumoco ccal vaccine Active 2020 Not Available [facility] 2 06:06:52 Menopaus e present 180011541 Active 2020 Not Available [facility] 2 06:06:52 HIV screenin g Active 2021 Richardson Correa PA-C Attn: Accounting ,[address] [place], [address] , [place] [facility] 2 10:01:15 Pharyngi tis 062473316 Active 2021 Richardson Correa PA-C Attn: Accounting ,[address] [facility], [place], [address] , [place] [facility] 2 10:46:21 Cough 47370660 Active 2021 Emperatriz Meyer MD Attn: Accounting ,[address] [facility], [place], [address] , [place] [facility] 2 17:15:56 Morbid obesity 382741942 Active 2022 Emperatriz Meyer MD Attn: Accounting ,[address] [facility], [place], [address] , [place] [facility] 3 10:57:52 Finger joint stiff 981561823 Active 2022 Emperatriz Meyer MD Attn: Accounting ,[address] [facility], [place], [address] , [place] [facility] 3 10:59:17 Pain of bilatera l hands 26445952403 752019 Active 2022 Emperatriz Meyer MD Attn: Accounting ,[address] [place], [address] , [place] [facility] 3 10:39:02 History of polyp of colon 623390857 Active 2023 Emperatriz Meyer MD Attn: Accounting ,[address] [facility], [place], [address] , [place] [facility] 4 10:34:33 Disorder of skin 09804179 Active 2023 Emperatriz Meyer MD Attn: Accounting ,[address] [place], [address] , [place] [facility] 4 10:36:51 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 [place], [address] , [facility] 5 15:39:12 Essentia l hyperten alex 00765420 Active Not Available [facility] 2 06:06:52 Hyperlip idemia 29984284 Active Not Available [facility] 2 06:06:52 Follicul itis 25052588 Active Not Available [facility] 2 06:06:52 Acute labyrint hitis 28907218737 4103 Active Not Available [facility] 2 06:06:52 Obesity 884113815 Completed 01/08/2023 Emperatriz Meyer MD Attn: Accounting ,[address] [facility], [place], [address] , [facility] 3 10:57:41 Screenin g for malignan t neoplasm of colon Active 2016 Not Available [facility] 2 06:06:52 Vitamin D deficien cy 04670501 Active 2016 Not Available [facility] 2 06:06:52 Notes:prolapsed bowel in 200 7.... pinned to spine Problem Notes None recorded. Procedures Surgical History Date Name Laterality Status Provider Name and Address Organization Details Recorded Time 09/26/19 22 lumpectomy of breast completed Yenny Jackson MA [place] - [facility] 04/04/2022 09:43:11 09/24/19 16 Most [facility] 10:20:56 09/24/19 07 operation on intestine completed [facility] 06/19/2019 10:24:51 09/24/18 88 Hysterectomy completed [facility] 06/19/2019 10:23:01 Imaging Results Imaging Date Name Status LastModified by Organization Details LastModified Time 01/10/2023 XR, wrist + hand completed [email or web address] [facility] [address] [place], [address], 01/24/2023 14:16:12 03/09/2023 CT, abdomen + pelvis, w/o contrast completed [address] [facility] [place], [address], 03/13/2023 16:43:45 06/05/2023 MAMMO, screening, bilateral completed [facility] [address] [place], [address], 06/27/2023 12:53:30 07/03/2023 US, breast, unilateral completed [facility] [address] [place], [address], 07/05/2023 09:20:36 07/03/2023 MAMMO, diagnostic, unilateral completed [address] ([employer]) [address] [place], [address], 07/03/2023 14:20:42 10/15/2024 CT, abdomen + pelvis, w/ contrast completed [address], [address], 10/16/2024 12:21:18 10/17/2024 US, abdomen completed [address] [address], [place], [address], 10/20/2024 12:22:07 10/21/2024 US, duplex, venous, lower extremity completed [address], [place], [address], 10/22/2024 10:17:52 10/21/2024 CT, abdomen + pelvis, w/ contrast completed [address], [address], 10/22/2024 10:38:39 10/23/2024 CT, chest, w/ contrast completed [address], [address], 10/25/2024 16:48:20 10/23/2024 CT, abdomen + pelvis, w/ contrast completed [address], [place], [address], 10/25/2024 16:48:20 10/24/2024 US, abdomen, limited completed [address], [place], [address], 10/28/2024 23:22:35 10/27/2024 XR, chest completed [address] [address], [place], [address], 10/29/2024 10:02:07 10/27/2024 fluoroscopy (PROC) completed [address] [address], [place], [address], 10/29/2024 10:02:33 11/03/2024 CT, abdomen + pelvis, w/ contrast completed [address] [address], [place], [address], 11/11/2024 12:28:21 11/04/2024 XR, chest completed [address] [address], [place], [address], 11/11/2024 12:28:48 11/18/2024 CT, chest, w/o contrast completed [address] [address], [place], [address], 11/26/2024 13:47:53 11/19/2024 imaging/diagnosti c result active [address] [address], [place], [address], 11/20/2024 10:18:26 11/20/2024 imaging/diagnosti c result active [address] [address], [place], [address], 11/20/2024 14:42:56 11/21/2024 NM, hepatobiliary scan completed [address] [address], [place], [address], 11/26/2024 13:47:54 11/23/2024 imaging/diagnosti c result active [facility] [address], [place], [address], 11/23/2024 13:52:55 Procedure Notes None recorded. Medical Equipment None [...] Updated DateTime 3 156.21 cm 37.4 kg/m2 71787.0 7 g 98.1 [degF] 89 /min 96 % 96 % 142 mm[Hg] 82 mm[Hg] Dalia Ellis MA [place] - [facility] 3 10:37:28 Date Recorded Body height Body mass index (BMI) Body weight Heart rate Oxygen saturation Oxygen saturation in Arterial blood by Pulse oximetry Systolic blood pressure Diastolic blood pressure Provider Name and Address Organization Details Last Updated DateTime 3 156.21 cm 37.2 kg/m2 55635.4 7 g 91 /min 94 % 94 % 150 mm[Hg] 85 mm[Hg] Madelyn Hong MA [facility] 3 10:11:49 Date Recorded Body height Body mass index (BMI) Body weight Heart rate Body temperature Oxygen saturation Oxygen saturation in Arterial blood by Pulse oximetry Systolic blood pressure Diastolic blood pressure Provider Name and Address Organization Details Last Updated DateTime 3 156.21 cm 36.2 kg/m2 74339.5 1 g 80 /min 98 [degF] 95 % 95 % 140 mm[Hg] 80 mm[Hg] Dalia Ellis MA [facility] 3 10:01:32 Date Recorded Body height Body mass index (BMI) Body weight Body temperature Oxygen saturation Oxygen saturation in Arterial blood by Pulse oximetry Heart rate Systolic blood pressure Diastolic blood pressure Provider Name and Address Organization Details Last Updated DateTime 4 156.21 cm 34.9 kg/m2 23067.3 7 g 98 [degF] 96 % 96 % 84 /min 134 mm[Hg] 80 mm[Hg] Dalia Ellis MA [place] - [facility] 4 10:15:53 Date Recorded Body height Body mass index (BMI) Body weight Heart rate Oxygen saturation Oxygen saturation in Arterial blood by Pulse oximetry Systolic blood pressure Diastolic blood pressure Provider Name and Address Organization Details Last Updated DateTime 4 156.21 cm 36.6 kg/m2 48629.7 g 82 /min 95 % 95 % 130 mm[Hg] 81 mm[Hg] Jose Correa MA [facility] 4 10:00:14 Social History Question Answer Notes LastModified by Organizat ion Details LastModified Time Tobacco Smoking Status Never Smoker Not Available [facility] 07/27/2020 03:43:22 Do You Have An Advance Directive? No [id number] Information not available 07/27/2020 What Is Your Level Of Alcohol Consumption? None [id number] Information not available 07/27/2020 Are You Blind Or Do You Have Difficulty Seeing? No [id number] Information not available 07/27/2020 What Is Your Level Of Caffeine Consumption? Moderate [id number] Information not available 07/27/2020 How Much Tobacco Do You Chew? None [id number] Information not available 07/27/2020 Are You Currently Employed? No Information not available 02/03/2021 Are You Deaf Or Do You Have Serious Difficulty Hearing? No [id number] Information not available 07/27/2020 What Type Of Diet Are You Following? REGULAR [id number] Information not available 07/27/2020 Which Illicit Or Recreational Drugs Have You Used? 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 No [id number] Information not available 07/27/2020 Hard Of Hearing [...] How Much Tobacco Do You Smoke? No [id number] Information not available 07/27/2020 General Stress Level Medium Information not available 02/23/2015 Do You Feel Stressed (tense, Restless, Nervous, Or Anxious, Or Unable To Sleep At Night)? [id number] Information not available 02/03/2021 Do You Use Any Illicit Or Recreational Drugs? No Information not available 02/03/2021 Do You Use Sunscreen Routinely? No [id number] Information not available 07/27/2020 Has Tobacco Cessation [...] have difficulty walking or climbing stairs? No [id number] Information not available 07/27/2020 Do you have difficulty doing errands alone? No [id number] Information not available 07/27/2020 Are you able to care for yourself? Yes Information not available 02/03/2021 Do you have difficulty dressing or bathing? No [id number] Information not available 07/27/2020 What is your exercise level? Occasional [id number] Information not available 07/27/2020 Mental Status Question Answer Note LastModified by Organization D etails LastModified Time Do you have difficulty concentrating, remembering or making decisions? No [id number] Information no t available 07/27/2020 Family History [...] Breast Problem N Anemia N Heart Attack ([place]) N Diabetes N Anxiety Disorder N Muscle, [...] Recorded Time Tdap 6 completed Not Available [facility] 10/11/2019 02:30:21 Influenza, split virus, quadrivalent, preservative 0 completed Not Available [facility] 09/28/2021 06:06:52 COVID-19, mRNA, LNP-S, PF, 100 mcg/0.5mL dose or 50 mcg/0.25mL dose 1 completed Not Available [facility] 09/28/2021 06:06:52 COVID-19, mRNA, LNP-S, PF, 100 [...] virus, quadrivalent, preservative 9 completed Not Available [facility] 10/11/2019 02:41:29 Pneumococcal conjugate PCV 13 1 completed Yenny [place] MA null, [place] [facility] 08/12/2021 10:52:14 Influenza, split virus, quadrivalent, preservative 5 completed Not Available [facility] 10/11/2019 02:47:51 Past Encounters Encounter ID Performer Location Encounter Start Date Encounter Closed Date Diagnosis/Indication Diagnosis SNOMED-CT Code Diagnosis ICD10 Code Diagnosis Note [id number] Maryam (Adult Med) [address] [place] [address] 02/23/2015 09:39:49 02/23/2015 11:21:06 Essential hypertension 92565246 Hyperlipidemia 92592570 Adult [facility] examination [id number] FCO Eckert (Adult Med) [address] [place] [address] 05/26/2015 09:14:07 05/26/2015 10:15:40 Adult health examination 133979306 Essential hypertension 46185452 Hyperlipidemia 53117647 Folliculitis 58426791 [id number] ALIZA Chavis (Adult Med) [address] [place] [address] 07/27/2015 09:15:41 07/27/2015 10:04:19 Administration of influenza vaccine 18559920 Z23 Adult heal th examination 081134133 Z00.00 Essential hypertension 39579270 I10 Hyperlipidemia 34826177 E78.5 [id number] ALIZA Chavis (Adult Med) [address] [place] [address] 10/05/2015 09:14:36 10/05/2015 10:02:26 Acute labyrinthitis 6829047390 77305 H83.09 Essential hypertension 43003238 I10 Hyperlipidemia 92399156 E78.5 [id number] ALIZA Chavis (Adult Med) [address] [place] [address] 02/03/2016 09:14:08 02/03/2016 16:59:30 Essential hypertension 45839564 I10 Hyperlipidemia 67648612 E78.5 Obesity 766367784 E66.9 Administra tion of tetanus vaccine 483118636 Z23 Screening mammography 24 742794 Z12.31 [id number] ALIZA Chavis (Adult Med) [address] [place] [address] 08/02/2016 10:29:29 08/02/2016 12:00:24 Obesity 612376578 E66.9 Hyperlipidemia 43623189 E78.5 Essential hypertension 19644666 I10 Acute labyrinthitis 4336 882661 06623 H83.09 [id number] ALIZA Chavis (Adult Med) [address] [place] [address] 11/23/2016 09:31:42 11/24/2016 11:40:13 Screening for malignant neoplasm of colon 719485459 Z12.11 Essential hypertension 12774637 I10 Hyperlipidemia 05081328 E78.5 Obesity 568415531 E66.9 Acute labyrinthitis 4336 215328 25006 H83.09 [id number] ALIZA Chavis (Adult Med) [address] [place] [address] 05/25/2017 09:32:08 05/25/2017 10:53:40 Essential hypertension 53844722 I10 Acute labyrinthitis 4336 755410 44413 H83.09 Hyperlipidemia 54108082 E78.5 Vitamin D deficiency 347 48208 E55.9 Obesity 733441480 E66.9 [id number] ALIZA Chavis (Adult Med) [address] [place] [address] 08/24/2017 09:32:20 08/24/2017 10:21:15 Essential hypertension 08172791 I10 Hyperlipidemia 91741976 E78.5 Obesity 166324594 E66.9 Vitamin D deficiency 347 72895 E55.9 Screening for malignant neoplasm of colon 438191570 Z12.11 [id number] ALIZA Chavis (Adult Med) [address] [place] [address] 02/22/2018 09:21:27 02/22/2018 10:17:15 Hyperlipidemia 71810469 E78.5 Essential hypertension 43358666 I10 Dysuria 87538808 R30.0 Low back pain 865240495 M54.5 Vitamin D deficiency 347 46629 E55.9 Obesity 138958525 E66.9 [id number] ALIZA Chavis (Adult Med) [address] [place] [address] 06/04/2018 10:03:24 06/05/2018 10:23:44 Hyperlipidemia 51453636 E78.5 Essential hypertension 43439962 I10 Obesity 014165520 E66.9 Low back pain 295784831 M54.5 Vitamin D deficiency 347 80514 E55.9 Screening for malignant neoplasm of colon 322514023 Z12.11 [id number] ALIZA Chavis (Adult Med) [address] [place] [address] 09/05/2018 09:18:32 09/05/2018 10:34:15 Essential hypertension 69593967 I10 Hyperlipidemia 20128364 E78.5 Obesity 502964379 E66.9 Vitamin D deficiency 347 81309 E55.9 Screening for malignant neoplasm of colon 848827009 Z12.11 [id number] ALIZA Chavis (Adult Med) [address] [place] [address] 11/05/2018 09:34:48 11/05/2018 10:50:15 Hypokalemia 09701344 E87.6 Hyperlipidemia 03648100 E78.5 Essential hypertension 73386949 I10 Obesity 340752470 E66.9 Vitamin D deficiency 347 43759 E55.9 Low back pain 395713054 M54.5 Screening for malignant neoplasm of colon 525807053 Z12.11 [id number] ALIZA Chavis (Adult Med) [address] [place] [address] 64047-546 0 03/13/2019 11:20:26 03/14/2019 08:56:05 Essential hypertension 72779915 I10 Hyperlipidemia 24573561 E78.5 Vitamin D deficiency 347 96610 E55.9 Low back pain 935835983 M54.5 Hypokalemia 34123436 E87 .6 Dysuria 49606381 R30.0 Obesity 736745417 E66.9 [id number] ALIZA Chavis (Adult Med) [address] [place] [address] 38519-379 0 05/12/2019 09:16:58 05/13/2019 09:16:57 Low back pain 558274785 M54.5 [id number] Danish Francisco (SISAL PICKER) [address] [place] [address] 04680-940 0 06/19/2019 09:57:34 06/20/2019 11:42:59 Screening mammography 01343830 Z12.31 History of hysterectomy 502107790 Z90.711 2007 for cervical cancer Screening for osteoporosis 669559049 Z13.820 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 Menopausal syndrome 1237 86784 N95.9 Candidal vulvovaginitis 04399320 B37.3 [id number] ALIZA Chavis (Adult Med) [address] [place] [address] 45679-150 0 06/26/2019 09:20:24 06/26/2019 10:03:58 Essential hypertension 83424508 I10 Hyperlipidemia 35500999 E78.5 Vitamin D deficiency 347 13830 E55.9 Low back pain 534847283 M54.5 Hypokalemia 12959793 E87 .6 Administra tion of influenza vaccine 45971462 Z23 Obesity 549123198 E66.9 [id number] ALIZA Chavis (Adult Med) [address] [place] [address] 39811-856 0 07/24/2019 09:27:53 07/24/2019 10:15:50 Essential hypertension 92514055 I10 Hyperlipidemia 16428879 E78.5 Obesity 704497373 E66.9 Vitamin D deficiency 347 22461 E55.9 Low back pain 244612529 M54.5 Hypokalemia 25891054 E87 .6 History of hysterectomy 188935007 Z90.241 [id number] ALIZA Chavis (Adult Med) [address] [place] [address] 71790-340 0 12/08/2019 10:44:52 12/08/2019 11:47:12 Normal grief reaction 347504201 F43.20 Essential hypertension 85292797 I10 Hyperlipidemia 69415801 E78.5 Vitamin D deficiency 347 47141 E55.9 Hypokalemia 71247385 E87 .6 Low back pain 821091966 M54.5 [id number] ALIZA Chavis (Adult Med) [address] [place] [address] 72408-221 0 04/13/2020 09:35:27 04/13/2020 10:18:08 Essential hypertension 59171531 I10 Hyperlipidemia 85269001 E78.5 Vitamin D deficiency 347 55522 E55.9 High hemog lobin A1c level 210622245 R73.09 [id number] ALIZA Chavis (Adult Med) [address] [place] [address] 31092-311 0 07/26/2020 08:00:03 07/26/2020 11:11:05 High hemoglobin A1c level 056620906 R73.09 Hyperlipidemia 14095290 E78.5 Low back pain 704775687 M54.5 Vitamin D deficiency 347 73699 E55.9 Essential hypertension 96381098 I10 Normal grief reaction 27 9689183 F43.20 Hypokalemia 76289395 E87 .6 [id number] ALIZA Chavis (Adult Med) [address] [place] [address] 73815-230 0 01/04/2021 11:05:45 01/06/2021 11:05:34 Low back pain 498556121 M54.5 Essential hypertension 70219821 I10 Hyperlipidemia 79657285 E78.5 Vitamin D deficiency 347 79138 E55.9 [id number] ALIZA Chavis (Adult Med) [address] [place] [address] 30369-866 0 02/03/2021 11:43:22 02/03/2021 12:23:07 Low back pain 047178363 M54.5 Hyperlipidemia 79304329 E78.5 Hypokalemia 15192639 E87 .6 Vitamin D deficiency 347 88533 E55.9 High hemog lobin A1c level 242326168 R73.09 Essential hypertension 98454531 I10 [id number] ALIZA Chavis (Adult Med) [address] [place] [address] 26924-982 0 03/31/2021 10:35:44 03/31/2021 11:41:27 Cardiomegaly 7205299 I51.7 Hyperlipidemia 48056285 E78.5 Essential hypertension 01271634 I10 Screening for malignant neoplasm of breast 462923334 Z12.39 High hemog lobin A1c level 131791013 R73.09 Low back pain 317235138 M54.5 Vitamin D deficiency 347 49723 E55.9 Screening mammography of bilateral breasts 7520368926 49328 Z12.31 [id number] ALIZA Chavis (Adult Med) [address] [place] [address] 44799-763 0 08/12/2021 09:37:08 08/12/2021 11:13:10 Mammography abnormal 731224229 R92.8 Administra tion of pneumococcal vaccine 16397397 Z23 Normal grief reaction 27 5977950 F43.20 Menopause present 115659 006 Z78.0 [id number] ALIZA Chavis (Adult Med) [address] [place] [address] 16284-571 0 11/25/2021 10:21:39 12/01/2021 17:01:26 Cervical spondylosis 053394520 M47.812 Essential hypertension 44318202 I10 High hemog lobin A1c level 191406009 R73.09 Hyperlipidemia 39373035 E78.5 Low back pain 107550480 M54.50 Normal grief reaction 27 5904945 F43.20 Vitamin D deficiency 347 21267 E55.9 [id number] ALIZA Chavis (Adult Med) [address] [place] [address] 91167-357 0 02/28/2022 09:59:45 03/01/2022 11:47:22 Essential hypertension 01783379 I10 Acute labyrinthitis 4336 640637 81322 H83.09 Cardiomegaly 6088000 I51 .7 Cervical spondylosis 387 108958 M47.812 High hemog lobin A1c level 213357684 R73.09 Hyperlipidemia 11150656 E78.5 Low back pain 721695583 M54.50 Obesity 999991544 E66.9 Vitamin D deficiency 347 85918 E55.9 [id number] ALIZA Chavis (Adult Med) [address] [place] [address] 48393-357 0 04/04/2022 09:06:07 04/05/2022 11:44:29 Screening for malignant neoplasm of breast 262223823 Z12.39 Vitamin D deficiency 347 48160 E55.9 Normal grief reaction 27 4696044 F43.20 Hyperlipidemia 12880520 E78.5 Essential hypertension 26763048 I10 HIV screening 655605785 Z11.4 High hemog lobin A1c level 969109599 R73.09 Cervical spondylosis 387 996159 M47.812 Low back pain 197077149 M54.50 Screening mammography 24 515968 Z12.31 [id number] ALIZA Chavis (Adult Med) [address] [place] [address] 49912-670 0 05/08/2022 10:18:30 05/09/2022 08:17:42 Essential hypertension 15547888 I10 Low back pain 815892744 M54.50 Pharyngitis 051839241 J0 2.9 Cardiomegaly 1231926 I51 .7 Cervical spondylosis 387 355841 M47.812 High hemog lobin A1c level 144436413 R73.09 Hyperlipidemia 80300032 E78.5 Normal grief reaction 27 9261375 F43.20 Vitamin D deficiency 347 76363 E55.9 [id number] ALIZA Chavis (Adult Med) [address] [place] [address] 74269-741 0 06/09/2022 10:30:01 06/12/2022 13:58:21 Cervical spondylosis 991415854 M47.812 Hyperlipidemia 18672563 E78.5 Essential hypertension 49808383 I10 Low back pain 280516214 M54.50 Obesity 109299707 E66.9 Vitamin D deficiency 347 97076 E55.9 Cardiomegaly 9159578 I51 .7 High hemog lobin A1c level 035323965 R73.09 [id number] MD Maryam White (Adult Med) [address] [place] [address] 18344-401 0 08/09/2022 14:57:26 08/11/2022 12:39:15 Essential hypertension 94622330 I10 Cont current regimen Cough 16994944 R05.9 [id number] MD Maryam White (Adult Med) [address] [place] [address] 08758-467 0 01/08/2023 10:13:51 01/09/2023 10:18:23 Morbid obesity 463467389 E66.01 Essential hypertension 38432162 I10 Cont current regimen Hyperlipidemia 52783039 E78.5 Cardiomegaly 9305803 I51 .7 Finger joint stiff 38691 8005 M25.649 Vitamin D deficiency 347 36599 E55.9 Screening for malignant neoplasm of colon 436909216 Z12.11 [id number] MD Maryam White (Adult Med) [address] [place] [address] 75566-037 0 05/10/2023 09:35:49 05/14/2023 10:00:26 Essential hypertension 88583590 I10 high x last three visits. Will increase amlodipine to 10 mg/d Morbid obesity 332226579 E66.01 Screening for malignant neoplasm of breast 859617952 Z12.39 Screening for malignant neoplasm of colon 567073783 Z12.11 Pain of bi lateral hands 6075921425 5940980 M79.641 M79.642 Screening mammography 24 507201 Z12.31 [id number] [facility] [address] [place] [address] 54717-430 0 07/10/2023 09:34:52 07/19/2023 12:43:18 Essential hypertension 93764139 I10 Will increase amlodipine to 10 mg/d. Will increase losartan Hyperlipidemia 43465837 E78.5 Hypokalemia 86704074 E87 .6 Low back pain 574288474 M54.50 Morbid obesity 005120675 E66.01 Vitamin D deficiency 347 29642 E55.9 [id number] Emperatriz Meyer MD [facility] (Adult Med) [address] [place] [address] 42360-961 0 01/09/2024 09:27:37 01/10/2024 12:34:09 Obesity 615462309 E66.9 Essential hypertension 40651143 I10 Continue current regimen High hemog lobin A1c level 396427697 R73.09 Hyperlipidemia 64804457 E78.5 Hypokalemia 42397796 E87 .6 Low back pain 181185977 M54.50 Morbid obesity 599563543 E66.01 Vitamin D deficiency 347 16169 E55.9 History of polyp of colon 625902236 Z86.010 Get colonoscop y results Disorder of skin 1023181 5 L98.9 [id number] Emperatriz Meyer MD [facility] (Adult Med) [address] [place] [address] 22632-960 0 07/07/2024 09:31:14 07/08/2024 10:00:55 Essential hypertension 76985023 I10 Continue current regimen High hemog lobin A1c level 978587099 R73.09 History of polyp of colon 416093772 Z86.0100 Hyperlipidemia 40215809 E78.5 Morbid obesity 576776012 E66.01 Vitamin D deficiency 347 73519 E55.9 Carcinoma of breast 2548 60999 C50.919 Screening for malignant neoplasm of breast 040262665 Z12.39 Disorder of left ear 022 4318375 251359 H93.92 Will refer to ENT after other problems addresses Hypokalemia 99737693 E87 .6 Health Concerns Section Related Observation LastModified by Organization Detai ls LastModified Time None Recorded Concern Status LastModified by Organization Details LastModified Time None Recorded Advance Directives Directive N: Payers Encounter Date Sequence Insurance Name Policy Number Policy Mcghee Covered Member ID Mcghee Member ID Guarantor Name 01/08/2023 1 [facility] (MEDICARE REPLACEMENT/A DVANTAGE - HMO) [id number] Yaneth A Estrella [id number] Yaneth Ebonie Estrella 05/10/2023 1 [facility] (MEDICARE REPLACEMENT/A DVANTAGE - HMO) [id number] Yaneth A Estrella [id number] Yaneth Ebonie Estrella 07/10/2023 1 [facility] (MEDICARE REPLACEMENT/A DVANTAGE - HMO) [id number] Yaneth A Estrella [id number] Yaneth Ebonie Estrella 01/09/2024 1 [facility] (MEDICARE REPLACEMENT/A DVANTAGE - HMO) [id number] Yaneth A Estrella [id number] Yaneth Ebonie Estrella 07/07/2024 1 [facility] (MEDICARE REPLACEMENT/A DVANTAGE - HMO) [id number] Yaneth A Estrella [id number] Yaneth Ebonie Estrella Notes Date Note Type Note Provider Name and Address Organization Details Recorded Time 01/08/2023 text/html Hands swelling a nd stiffness in hands especially on the left in the past month. She has tried OTC meds with some relief. Emperatriz Meyer MD Attn: [address] [place], [address], [place] 01/08/2023 11:04:03 05/10/2023 text/html Here for four month f/u visit. Needs mammogram. BP med was apparently denied Emperatriz Meyer MD Attn: [address]ing[address] [place], [address], [place] [facility] 05/10/2023 10:41:36 07/10/2023 text/html Here for BP f/u. Scheduled for colonoscopy in two days. Emperatriz Meyer MD Attn: [address]ing[address] [facility], [place], [address], [place] [facility] 07/10/2023 10:38:18 01/09/2024 text/html Here for routine f/u. Had colonoscopy about six months ago. Wants results. Has skin lesions on her ear she wants examined by dermatology Emperatriz Meyer MD Attn: [address]ing[address] [facility], [place], [address], [place] [facility] 01/09/2024 10:39:49 07/07/2024 text/html Throbbing of lef t ear for four months. Needs mammogram Emperatriz Meyer MD Attn: Accounting[address] [facility], [place], [address], [place] [facility] 07/07/2024 10:40:04 OBGyn Episode Ob Episode Information Episode Created Date Number of Fetuses Patient Bloodtype Patient rh Status Prepregnancy Weight lbs Domestic Partner Domestic Partner Phone Father Name Office Agent Status 06/19/20 19 1 CLOSED Fetus Data First Name Last Name Admitted to NICU Weight (g) Sex Living Outcome Pediatric Complications Fetus ID Race Codes Race Delivery Type Full Term [id number] Nathanael Calculation Initial Nathanael Date Initial Exam [...] Domestic Partner Domestic Partner Phone Father Name Office Agent Status 06/19/20 19 1 CLOSED Fetus Data First Name Last Name Admitted to NICU Weight (g) Sex Living Outcome Pediatric Complications Fetus ID Race Codes Race Delivery Type Full Term [id number] Nathanael Calculation Initial Nathanael Date Initial Exam [...]
--- NOTE | 2024-11-29 13:05 | ECG_ITS ---
Test Date: 2024-11-29 13:24:48 Measurements Intervals [place] Rate: 110 P: 77 NE: 126 QRS: 93 QRSD: 66 T: 29 QT: 316 QTc: 428 Interpretive Statements SINUS TACHYCARDIA POSSIBLE LEFT ATRIAL ENLARGEMENT [-0.1mV P WAVE IN V1/V2] NONSPECIFIC T-WAVE ABNORMALITY ABNORMAL RHYTHM ECG Compared to ECG 10/27/2024 09:07:23 NO SIGNIFICANT CHANGE Electronically Signed On 11-29-2024 16:05:01 MEAT SLICER by Domingo Villalobos M.D.
--- NOTE | 2024-11-29 13:21 | PC.NURSE ---
This RN noted jaundice to pt skin skin, sclera. Pt & family state it is new.
[2024-11-29 14:01] LABS: Basophils Absolute Auto 0.1 K/mm3 (0.0-0.1); Basophils Percent Auto 0.4 % (0.2-1.2); Eosinophils Absolute Auto 0.2 K/mm3 (0-0.3); Eosinophils Percent Auto 0.9 % (0-4.4); Hemoglobin 13.4 g/dL (12.0-15.0); Immature Granulocyte Absolute 0.26 K/mm3 (0.00-0.031); Immature Granulocyte Percent A 1.2 % (0-0.5); Lymphocytes Absolute Auto 0.76 K/mm3 (0.9-3.2); Lymphocytes Percent Auto 3.4 % (18.3-44.2); Mean Corpuscular HGB Conc 31.9 g/dl (32-36); Mean Corpuscular Hemoglobin 27.2 pg (26-34); Mean Corpuscular Volume 85.2 fl (80-100); Mean Platelet Volume 12.3 fl (7.4-10.4); Monocytes Absolute Auto 1.9 K/mm3 (0.1-0.6); Monocytes Percent Auto 8.4 % (2.6-8.5); Neutrophils Absolute Auto 19.3 K/mm3 (1.3-6.7); Neutrophils Percent Auto 85.7 % (45.5-73.1); Platelet Count Result 145 k/mm3 (150-375); Red Blood Count 4.93 M/mm3 (4.2-5.4); Red Cell Distribution Width 17.9 % (11.5-14.5); White Blood Count 22.6 K/mm3 (4.5-10.0)
[2024-11-29 14:14] LABS: Albumin Level 3.3 g/dL (3.5-5.1); Anion Gap 16 mmol/L (4-12); Aspartate Amino Transferase 277 U/L (14-36); Bilirubin,Total 12.3 mg/dL (0.2-1.3); Blood Urea Nitrogen 19 mg/dL (7-17); Calcium 8.9 mg/dL (8.4-10.2); Carbon Dioxide 24 mmol/L (22-30); Chloride 95 mmol/L (98-107); Estimated CRCL calculation 95 ml/min; Estimated Glomerular Filt Rate > 60; Glucose 188 mg/dL (65-110); Potassium 3.6 mmol/L (3.4-5.0); Sodium 135 mmol/L (137-145)
[2024-11-29 14:16] LABS: INR 1.3; Partial Thromboplastin Time 26.7 Seconds (22.3-36.8); Prothrombin Time 16.6 Seconds (11.1-14.7)
--- OUTSIDE RECORDS SUMMARY | 2024-11-29 14:24 | XMS_ITS | Referral Summary ---
Author Organization [facility] Address [address] [place] [address] Care Team Providers Care Scrap Metal Burner Name Role Phone Richardson Correa Primary Care Provider + Richardson Correa Unavailable [phone] Aris Meyer MD Unavailable Ghanshyam Calixto DO Unavailable [phone] Domingo Bearden MD Unavailable [phone] Ebony Masters MD Unavailable [phone] Allergies No known active allergies Medications diclofenac [...] from 05/26/2021:Stage IB(cT2, cN0, cM0, G2, ER+, NC+, HER2-) - Signed by Ebony Masters MD on 08/31/2021 Pathologic stage from 09/26/2021:Stage IA(pT1b, pN0(sn), cM0, G2, ER+, NC+, HER2-) - Signed by Ebony Masters MD [...] on file 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 Gender Identity Not on file Sexual [...] Treatment Not on file Insurance MEDICARE SOL[facility] MEDICARE Address: [facility] [address] [place] [address] MEDICARE [facility] MEDIC[facility] Address: [facility] [address] [place] [address] Care Teams Scrap Metal Burner Relationship Specialty Start Date End Date Richardson Correa PA [address] [place] [address] 32508 PCP - General Internal Medicine 08/31/21 Richardson Correa PA [address] [place] [address] 49666 Internal Medicine 08/31/21 Aris Meyer MD [address] [place] [address] Consulting Physician Cardiology 08/31/21 Ghanshyam Calixto DO [address] [place] [address] [id number] Medical Oncologist/Blunger Machine Operator Hematology and Oncology 08/31/21 Dominog Bearden MD [address] [place] [address] [phone] Surgeon General Surgery 08/31/21 Ebony Masters MD [address] [place] [address] [phone] Radiation Oncologist Radiation Oncology 05/14/24
--- OUTSIDE RECORDS SUMMARY | 2024-11-29 14:24 | XMS_ITS | Clinical Summary ---
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 MEDICARE Address: [address] [address] [place] [id number] [facility] MEDICARE Address: [address] [address] [place] [phone] Care Teams Rock Picker Relationship Specialty Start Date End Date Richardson Correa PA [address] [place] [address] PCP - General Internal Medicine 08/31/21 Richardson Correa PA [address] [place] [address] Internal Medicine 08/31/21 Aris Meyer MD [address] [place] [address] Consulting Physician Cardiology 08/31/21 Ghanshyam Calixto DO [address] [id number] Medical Oncologist/Chief Transfer And Pumphouse Operator Hematology and Oncology 08/31/21 Domingo Bearden MD [facility] [address] [place] [address] Surgeon General Surgery 08/31/21 Ebony Masters MD [address] [facility] [address] [place] [address] Radiation Oncologist Radiation Oncology 05/14/24
--- OUTSIDE RECORDS SUMMARY | 2024-11-29 14:24 | XMS_ITS ---
Author Organization [facility] Address [address] [place] [address] Care Team Providers Care Test Operator Name Role Phone Richardson Correa Primary Care Provider + Richardson Correa Unavailable [phone] Aris Meyer MD Unavailable Ghanshyam Calixto DO Unavailable [phone] Domingo Bearden MD Unavailable [phone] Ebony Masters MD Unavailable [phone] Active Problems Problem Noted Date Diagnosed Date Personal history of radiation therapy 12/26/2021 Malignant neoplasm of upper- outer quadrant of left breast in female, estrogen receptor positive 08/31/2021 Cancer Staging:Clinical stage from 05/26/2021:Stage IB(cT2, cN0, cM0, G2, ER+, NE+, HER2-) - Signed by Ebony Masters MD on 08/31/2021 Pathologic stage from 09/26/2021:Stage IA(pT1b, pN0(sn), cM0, G2, ER+, NE+, HER2-) - Signed by Ebony Masters MD [...]
--- OUTSIDE RECORDS SUMMARY | 2024-11-29 14:24 | XMS_ITS | Clinical Summary ---
Author Organization [facility] Address [address] [place] [address] Care Team Providers Care Crew Leader Name Role Phone Richardson Correa Primary Care Provider + Aris Meyer MD Unavailable [phone] Allergies No known active allergies Medications [...] Comments Blood Pressure 167/88 09/26/2021 4:12 PM TUBE DEPATCHER Pulse 99 09/26/2021 4:12 PM TUBE DEPATCHER Temperature 37 C (98.6 F) 09/26/2021 4:12 PM TUBE DEPATCHER Respiratory Rate 20 09/26/2021 4:12 PM TUBE DEPATCHER Oxygen Saturation 93% 09/26/2021 4:12 PM TUBE DEPATCHER Inhaled Oxygen Concentration - - Weight 88.4 kg (194 lb 14.2 oz) 022 11:00 AM TUBE DEPATCHER Height 154.9 cm (5' 1 ) 09/26/2021 11:0 0 AM TUBE DEPATCHER Body Mass Index 36.82 09/26/2021 11:00 AM TUBE DEPATCHER Plan of Treatment Health Maintenance Due Date [...] topic Insurance [facility] Care Teams Crew Leader Relationship Specialty Start Date End Date Richardson Correa PA PCP - General PHYSICIAN MCAT INSTRUCTOR 09/13/21 [place] [address] [place] [address] CARDIOVASCULAR DISEASE 09/13/21
[2024-11-29 14:25] LABS: Alanine Aminotransferase 183 U/L (6-35); Alkaline Phosphatase 1063 U/L (38-126)
[2024-11-29] MEDS: ONDANSETRON INJ 4 MG/2 ML VIAL IV PUSH (14:47)
[2024-11-29 14:55] LABS: Ammonia < 9 umol/L (9-30)
[2024-11-29 15:09] LABS: NT Pro B Type Natriuretic Pept 381 pg/mL (19.9-100); Troponin I < 0.012 ng/mL (0.000-0.034)
--- NOTE | 2024-11-29 15:28 | ED_ITS ---
HPI - Weakness General Chief complaint: Weakness Stated complaint: Weakness, shortness of breath Stage 4 Cancer Time Seen by Provider: 11/29/24 14:15 Source: patient, family, RN notes reviewed and old records reviewed Mode of arrival: wheelchair Limitations: no limitations History of Present Illness HPI Narrative: This is a 68 year old female with recent diagnosis of colon cancer with mets to liver who presents from home for evaluation of weakness. PAtient was discharged from hospital days ago after evaluation and treatment of pneumonia and weakness. She was evaluated by oncology, GI and general surgery at that time. Her daughter states this is her 4th time coming to hospital since her diagnosis in September. Patient's daughter states patient is not eating and she thinks this is cause of her weakness. She is also having nausea and vomiting. Nursing reports her oxygen saturation dropped to 87% so she was placed on nasal canula in ED today. She denies chest pain, abdominal pain. Related Data Home Medications ?Medication ?Instructions ?Recorded ?Confirmed ?Last Taken ?Type amlodipine 5 mg tablet 5 mg PO DAILY 10/15/24 11/18/24 10/21/24 History aspirin 81 mg chewable tablet 81 mg PO DAILY 10/15/24 11/18/24 10/21/24 History ezetimibe 10 mg tablet 10 mg PO DAILY 10/15/24 11/18/24 10/21/24 History metoprolol succinate 50 mg 50 mg PO Q12H 10/15/24 11/18/24 10/21/24 History tablet,extended release 24 hr pravastatin 40 mg tablet 40 mg PO DAILY 10/15/24 11/18/24 10/21/24 History Allergies Allergy/AdvReac Type Severity Reaction Status Date / Time No Known Allergies Allergy Verified 11/29/24 12:51 Review of Systems 2 Constitutional: Constitutional: Reports fatigue and Reports weakness Cardiovascular: Cardiovascular: Denies chest pain Respiratory: Respiratory: Reports dyspnea Gastrointestinal: Gastrointestinal: Reports nausea and Reports vomiting Musculoskeletal: Musculoskeletal: Reports myalgias PMFSH Past Medical History Medical History Lactic acidosis Dysphagia 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 Otero History of total abdominal hysterectomy History of lumpectomy of left breast Family History Family History Sibling Lung cancer COVID Diabetes mellitus Father Leukemia Mother Heart trouble Social History Social History Smoking status: Never smoker Second hand tobacco smoke exposure: No Alcohol intake: never Substance use: never Do You Feel Safe in your Home?: Yes Lack of Transportation: No Lack of Food: Never True Current Housing: I Have Housing Concerned About Future Housing: No Difficulty Paying Gas/Electric Bills: No Difficulty Paying for Meds: No Currently Unemployed: No Education: High School Diploma/GED Difficulty w/ Childcare or Family Care: No Spiritual care concerns: No Exam 2 Const: General: alert and ill appearing Orientation/consciousness: patient oriented x3 HENMT: Head: normal to inspection Eyes: Conjunctivae: conjunctival abnormality bilateral conjunctival icterus EOM: EOMs intact bilaterally Resp: Effort & Inspection: normal respiratory effort Auscultation: clear to auscultation bilaterally Cardio: Rate: tachycardic Rhythm: regular rhythm Heart sounds: Murmur heart sound present GI: Inspection: distended GI Palp: Yes Soft to palpation, No Tenderness to palpation present (GI), No Guarding due to palpation present (GI) and No Rigid due to palpation Auscultation: normal bowel sounds Skin: General skin exam: jaundice Neuro: General: patient oriented x3 and moves all extremities Extrem: General: no pedal edema Psych: Mental Status: mental status grossly normal Affect: normal affect Attitude: cooperative Course Reevaluation(s) Reevaluation #1: I spoke with daughter, patient and family about CT findings. PAtient looks to have progression of her disease. She will need to be admitted. Date: 11/29/24 Time: 17:00 Consultations Consultation #1: I spoke with DR. Armin Marte. He is familiar with patient. He denies any recommendations. He will consult Date: 11/29/24 Time: 14:00 Consultation #2: I Discussed case with Savana with hospitalist and she accepts to service. Date: 11/29/24 Time: 17:12 Consultation #3: I spoke with Dr. Phillips of general surgery. He will consult and determine if intervention is needed Date: 11/29/24 Time: 18:13 Vital Signs Vital signs: Vital Signs Temperature 97.6 F 11/29/24 13:02 Pulse Rate 117 H 11/29/24 13:02 Respiratory Rate 18 11/29/24 13:02 Blood Pressure 141/75 H 11/29/24 13:02 Pulse Oximetry 93 11/29/24 13:02 Oxygen Delivery Room Air 11/29/24 13:02 Temperature 97.6 F 11/29/24 13:02 Pulse Rate 112 H 11/29/24 18:37 Respiratory Rate 20 11/29/24 18:37 Blood Pressure 138/86 11/29/24 18:37 Pulse Oximetry 95 11/29/24 18:37 Oxygen Delivery Room Air 11/29/24 13:02 MDM - Weakness Differential Diagnosis Differential diagnosis: Likely anemia, hypoglycemia, hypothyroidism, rhabdomyolysis, sepsis and dehydration Medical Records Attestation: I reviewed the patient's medical records. Medical records narrative: Patient was diagnosed with obstructing colon cancer that required diverting ileostomy in September. This was done by [facility] surgeon. She has required multiple hospitalizations due to new diagnosis of colon cancer with mets. She was discharged 11/23/24 after evaluation of elevated LFTS, gallstones, weakness, nausea and pneumonia. She was evaluated by GI, oncology, general surgeon. It was thought that elevated bilirubin and LFTS were due to her metastatic lesions in her liver instead of cholecystitis or bile duct obstruction. Lab Data Attestation: I reviewed the patient's lab results. 11/29/24 13:54 11/29/24 13:54 Labs: Lab Results 11/29/24 11/29/24 11/29/24 Range/Units 13:54 14:39 16:02 WBC 22.6 H (4.5-10.0) K/mm3 RBC 4.93 (4.2-5.4) M/mm3 Hgb 13.4 (12.0-15.0) g/dL Hct 42.0 (37.0-47.0) % MCV 85.2 (80-100) fl MCH 27.2 (26-34) pg MCHC 31.9 L (32-36) g/dl RDW 17.9 H (11.5-14.5) % Plt Count 145 L (150-375) k/mm3 MPV 12.3 H (7.4-10.4) fl Immature Gran % (Auto) 1.2 H (0-0.5) % Neut % (Auto) 85.7 H (45.5-73.1) % Lymph % (Auto) 3.4 L (18.3-44.2) % [place] % (Auto) 8.4 (2.6-8.5) % Eos % (Auto) 0.9 (0-4.4) % Baso % (Auto) 0.4 (0.2-1.2) % Lymph # (Auto) 0.76 L (0.9-3.2) K/mm3 [place] # (Auto) 1.9 H (0.1-0.6) K/mm3 Eos # (Auto) 0.2 (0-0.3) K/mm3 Baso # (Auto) 0.1 (0.0-0.1) K/mm3 Abs Immat Gran (auto) 0.26 H (0.00-0.031) K/mm3 Absolute Neuts (auto) 19.3 H (1.3-6.7) K/mm3 Absolute Nucleated RBC 0.000 (0.0-0.012) K/mm3 Nucleated RBC % 0.0 (0.0-0.2) % PT 16.6 H (11.1-14.7) Seconds INR 1.3 APTT 26.7 (22.3-36.8) Seconds Sodium 135 L (137-145) mmol/L Potassium 3.6 (3.4-5.0) mmol/L Chloride 95 L (98-107) mmol/L Carbon Dioxide 24 (22-30) mmol/L Anion Gap 16 H (4-12) mmol/L BUN 19 H D (7-17) mg/dL Creatinine 0.45 L (0.7-1.0) mg/dL Estim Creat Clear Calc 95 ml/min Estimated GFR > 60 (59 - ) Glucose 188 H (65-110) mg/dL Calcium 8.9 (8.4-10.2) mg/dL Total Bilirubin 12.3 H (0.2-1.3) mg/dL AST 277 H (14-36) U/L ALT 183 H (6-35) U/L Alkaline Phosphatase 1063 H (38-126) U/L Ammonia < 9 L (9-30) umol/L Troponin I < 0.012 (0.000-0.034) ng/mL NT-Pro-B Natriuret Pep 381 H (19.9-100) pg/mL Total Protein 7.0 (6.3-8.2) g/dL Albumin 3.3 L (3.5-5.1) g/dL Urine Color Dark yellow (Yellow) Urine Appearance Cloudy H (Clear) Urine pH 5.5 (5.0-9.0) Ur Specific [place] > 1.045 H (1.001-1.035) Urine Protein 1+ H (Negative) mg/dL Urine Glucose (UA) Negative (Negative) mg/dL Urine Ketones Negative (Negative) mg/dL Ur Blood (Man) Negative (Negative) Urine Nitrate Positive H (Negative) Urine Bilirubin 3+ H (Negative) Urine Urobilinogen 0.2 (<2.0) mg/dL Add Ur Microanalysis Reviewed Leukocyte Esterase Rfl 1+ H (Negative) JULIAN/UL Urine RBC 0-2 (0-2) /hpf Urine WBC 0-5 (0-3) /hpf Ur Squamous Epith Cells Moderate (Few) /hpf Urine Bacteria None seen /hpf Urine Casts 6-10 Urine Mucus Few H /lpf Urine Yeast (Budding) Present H (None) /hpf Imaging Data Radiologist's impression: ITS Impressions Chest X-Ray 11/29/24 13:52 IMPRESSION: 1. Diffuse interstitial pattern in the lungs, likely mild pulmonary edema. Chest X-Ray 11/29/24 14:10 IMPRESSION: Cardiomegaly with cardiac decompensation and pulmonary edema. Pneumonia is not excluded. Chest/Abdomen/Pelvis CTA 11/29/24 16:09 IMPRESSION: CHEST: 1. Precarinal and hilar adenopathy. 2. Multiple nodular densities in both lungs suggestive of metastatic lesions. 3. Bilateral interstitial thickening which may indicate pneumonitis versus edema versus lymphangitis. 4. Left lower lobe atelectasis versus pneumonia. ABDOMEN/PELVIS: 1. Multiple liver metastatic lesions. Hepatomegaly. 2. Cholelithiasis 3. Ascites. 4. Highly suggestive pancreatic mass. MRI is advised. 5. Ileostomy with surrounding fluid collection measuring 7.6 x 5.4 cm. 6. Omental caking with adjacent soft tissue density in the transverse colon suggestive of a mass or inflammatory changes. ECG Data EKG #1: Attestation: I personally reviewed and interpreted this ECG as follows: ECG completion date: 11/29/24 ECG completion time: 13:24 Interpretation: nonspecific t abnormalities EKG Interpretation: tachycardia (110), sinus rhythm and NL axis Critical Care Time Critical Care Time Critical Care Time: Yes Total Critical Care Time: 45 Discharge Plan Discharge Clinical Impression: Metastases to the liver, Leukocytosis, Hyperbilirubinemia Cholelithiasis Qualifiers: Cholelithiasis location: gallbladder Cholecystitis presence: without cholecystitis Biliary obstruction: without biliary obstruction Qualified Code(s): K80.20 - Calculus of gallbladder without cholecystitis without obstruction Patient Disposition: Still a Patient Condition: Serious
[2024-11-29 16:30] LABS: Add Urine Microscopic? YES; Appearance Urine Cloudy (Clear); Bacteria Urine None Seen /hpf; Bilirubin Urine 3+ (Negative); Blood Urine Negative (Negative); Budding Yeast Urine Present /hpf; Color Urine Dark Yellow (Yellow); Glucose Urine UA Negative (Negative); Ketones Urine Negative (Negative); Leukocyte Esterase Ur 1+ LEU/UL (Negative); Need Manual Microscopic Reviewed; Nitrate Urine Positive (Negative); Protein Urine 1+ mg/dL (Negative); Specific Grav Ur > 1.045 (1.001-1.035); Squamous Epithelial Cell Urine Moderate /hpf (Few); Urobilinogen Urine 0.2 mg/dL (<2.0); WBC Urine 0-5 /hpf (0-3); pH Urine 5.5 (5.0-9.0)
[2024-11-29 16:41] LABS: Mucus Urine Few /lpf; RBC Urine 0-2 /hpf (0-2)
[2024-11-29] MEDS: MORPHINE SULFATE (*CRX) 4 MG/ML INJ IV PUSH (18:28)
[2024-11-29] MEDS: metroNIDAZOLE 500 MG/ISO 100ML 500 MG/100 ML BAG 100 MG IVPB (18:29)
[2024-11-29] MEDS: LACTATED RINGERS 1,000 ML 125 ML IV CONT (20:21)
--- NOTE | 2024-11-29 21:31 | ADMGEN ---
This patient, Hayden Estrella, was admitted to [facility] Surg Room 315-02. Patient/family oriented to hospital policies and general routines including ID bracelet, bed and alarms, visiting hours, pain management, procedures, bathroom and other care routines, personal items, smoking policy, room service/diet, and visiting hours. Information on how to activate the Rapid Response Team has been discussed. Patient/Family are encouraged to report perceived risks to care and to ask questions if they do not understand what they are told or what they should do.
--- NOTE | 2024-11-29 22:10 | P.HP_ITS ---
H&P: HPI History of Present Illness Date/Time: 11/30/24 04:30 Chief Complaint: Weakness and shortness of breath. 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 The patient provides the following history. She was admitted to the hospital in October a bowel obstruction due to colon stricture. Biopsies of a malignant appearing mass in the transverse colon revealed undifferentiated adenocarcinoma and she then underwent laparoscopic diverting loop ileostomy. Since that time she has had several other hospitalizations due to complications and most recently she was hospitalized about weeks ago elevated liver enzymes after presenting with nausea and vomiting. MRCP did not show any signs of obstruction and she was seen by General surgery who did not feel that her symptoms were suggestive of cholecystitis and felt that the delay of tracer from the liver on HIDA scan was likely related to retention of the tracer within the liver as 15 lesions were seen in the liver on CT scan sent with probable metastatic disease. She was discharged home 1 week ago and again has not yet been able to start treatment. She is supposed to have a consultation at the [facility] sometimes next week. Unfortunately she continues to have poor oral intake, nausea, and vomiting. Anything she eats seems to come up within a very short period of time. She is becoming progressively more weak and her skin is getting more yellow. He has significant aching pain in the back and down into her legs. She also reports a cough which is occasionally productive of clear sputum and low-grade fever. She denies chest and pleuritic pain, hematemesis, diarrhea, melena, hematochezia, and dysuria. In the ED: Vital signs on arrival include a temperature of 97.6?, blood pressure 141/75, pulse 117, respiratory rate 18, SpO2 93% on 2 L. labs are significant for WBC count of 22.6, platelet 145, sodium 135, chloride 95, anion gap 16, BUN 19, creatinine 0.45, glucose 188, total XII 0.3, AST 277, ALT 183, alkaline phosphatase 1063. Urinalysis was positive for nitrates and leukocyte esterase though no bacteria were seen on microscopy. CTA of the chest, abdomen, and pelvis was negative for pulmonary embolus but did show interstitial thickening which may indicate pneumonitis versus edema versus lymphangitis, left lower lobe atelectasis or pneumonia, precarinal and hilar lymphadenopathy, multiple nodular densities in both lungs and liver consistent with metastatic lesions, multiple ascites, omental caking, and a highly suggestive pancreatic mass. She was given a and a dose of Zosyn, IV fluids, potassium, antiemetics, and pain medications and she is being admitted in this setting for hydration and multi specialty consultations. Review of Systems Review of Systems: 12 systems were reviewed and are negativ e except for as per HPI. [facility] Past Medical History Medical History Kidney stones Stenosis of right carotid artery Metastatic adenocarcinoma Deep venous thrombosis Cervical cancer Breast cancer Hyperlipidemia Hypertension Surgical History Surgical History History of ileostomy (10/28/24) laparoscopic diverting loop ileostomy History of laparotomy open repair for prolapse, possibly cystocele History of total abdominal hysterectomy History of lumpectomy of left breast Family History Family History Sibling Lung cancer COVID Diabetes mellitus Father Leukemia Mother Heart trouble Social History Social History Social History: Surrogate medical decision maker: Suzan Rice, daughter ([phone]). Code status: Full code. Smoking status: Never smoker Second hand tobacco smoke exposure: No Alcohol intake: never Substance use: never Do You Feel Safe in your Home?: Yes Lack of Transportation: No Lack of Food: Never True Current Housing: I Have Housing Concerned About Future Housing: No Difficulty Paying Gas/Electric Bills: No Difficulty Paying for Meds: No Currently Unemployed: No Education: Grade School Difficulty w/ Childcare or Family Care: No Spiritual care concerns: No Meds Home Medications and Allergies Home Medications ?Medication ?Instructions ?Recorded ?Confirmed ?Type amlodipine 5 mg tablet 5 mg PO DAILY 10/15/24 11/29/24 History aspirin 81 mg chewable tablet 81 mg PO DAILY 10/15/24 11/29/24 History ezetimibe 10 mg tablet 10 mg PO DAILY 10/15/24 11/29/24 History metoprolol succinate 50 mg 50 mg PO Q12H 10/15/24 11/29/24 History tablet,extended release 24 hr pravastatin 40 mg tablet 40 mg PO DAILY 10/15/24 11/29/24 History benzonatate 100 mg capsule 100 mg PO TID #60 caps 11/23/24 11/29/24 Rx dextromethorphan-guaifenesin 10 10 ml PO Q4H PRN Cough #237 mL 11/23/24 11/29/24 Rx mg-100 mg/5 mL oral syrup potassium chloride 20 mEq 40 meq (2 x 20 mEq) PO DAILY #60 11/23/24 11/29/24 Rx tablet,extended release (K-Tab) tabs Allergies Allergy/AdvReac Type Severity Reaction Status Date / Time No Known Allergies Allergy Verified 11/29/24 12:51 Vital Signs Vital Signs - 24 hr 11/29/24 13:02 11/29/24 13:19 11/29/24 13:30 Temperature 97.6 F Pulse Rate 117 H 117 H 101 H Respiratory Rate 18 17 27 H Blood Pressure 141/75 H Pulse Oximetry 93 91 Oxygen Delivery Room Air 11/29/24 13:45 11/29/24 14:00 11/29/24 14:12 Temperature Pulse Rate 106 H 108 H 106 H Respiratory Rate 33 H 17 24 H Blood Pressure 140/71 Pulse Oximetry 96 93 Oxygen Delivery 11/29/24 14:34 11/29/24 14:47 11/29/24 14:48 Temperature Pulse Rate 107 H 107 H Respiratory Rate 22 H 29 H Blood Pressure 158/68 H Pulse Oximetry 94 94 95 Oxygen Delivery 11/29/24 15:00 11/29/24 15:02 11/29/24 15:15 Temperature Pulse Rate 107 H 109 H 110 H Respiratory Rate 23 H 22 H 25 H Blood Pressure 150/65 H Pulse Oximetry 95 94 95 Oxygen Delivery 11/29/24 15:30 11/29/24 16:23 11/29/24 17:53 Temperature Pulse Rate 112 H 113 H 115 H Respiratory Rate 28 H 16 23 H Blood Pressure 140/68 131/81 Pulse Oximetry 95 92 94 Oxygen Delivery 11/29/24 17:54 11/29/24 18:37 Temperature Pulse Rate 115 H 112 H Respiratory Rate 20 Blood Pressure 138/86 Pulse Oximetry 95 Oxygen Delivery Exam Narrative: General: Moderately ill-appearing female lying on her left side in bed in no acute distress. Weight: 84.3 kg. BMI: 36.3. HEENT: PERRL, EOMI. Bilateral conjunctival icterus. Tacky mucous membranes. Neck: Supple. Respiratory: Respirations are nonlabored. Lung sounds are a bit coarse but are otherwise clear to auscultation. Cardiovascular: Regular rate and rhythm with S1-S2. Gastrointestinal: Abdomen is protuberant with positive bowel sounds. She is tender to deeper palpation throughout the abdomen without guarding or rebound tenderness. Negative Maurer sign. Skin: Warm, dry, and jaundiced. Extremities: No cyanosis, clubbing, or significant edema. Radial and pedal pulses intact. No palpable knots or cords. Negative Landy sign bilaterally. Neurological: Alert. Cranial nerves 2-12 are grossly intact. No gross focal deficits to casual conversation. Psychiatric: Pleasant and cooperative with normal mood and affect. Judgment and insight intact. H&P: Results Labs Labs: Short CBC 11/29/24 Range/Units 13:54 WBC 22.6 H (4.5-10.0) K/mm3 Hgb 13.4 (12.0-15.0) g/dL Hct 42.0 (37.0-47.0) % Plt Count 145 L (150-375) k/mm3 BMP 11/29/24 13:54 Sodium 135 L Potassium 3.6 Chloride 95 L Carbon Dioxide 24 BUN 19 H D Creatinine 0.45 L Glucose 188 H Calcium 8.9 Cardiac Enzymes 11/29/24 Range/Units 14:39 Troponin I < 0.012 (0.000-0.034) ng/mL Liver Function 11/29/24 Range/Units 13:54 Total Bilirubin 12.3 H (0.2-1.3) mg/dL AST 277 H (14-36) U/L ALT 183 H (6-35) U/L Alkaline Phosphatase 1063 H (38-126) U/L Albumin 3.3 L (3.5-5.1) g/dL Urine 11/29/24 Range/Units 16:02 Urine Color Dark yellow (Yellow) Urine Appearance Cloudy H (Clear) Urine pH 5.5 (5.0-9.0) Ur Specific [place] > 1.045 H (1.001-1.035) Urine Protein 1+ H (Negative) mg/dL Urine Glucose (UA) Negative (Negative) mg/dL Imaging Chest X-Ray 11/29/24 13:52 IMPRESSION: 1. Diffuse interstitial pattern in the lungs, likely mild pulmonary edema. Chest X-Ray 11/29/24 14:10 IMPRESSION: 1. Cardiomegaly with cardiac decompensation and pulmonary edema. Pneumonia is not excluded. Chest/Abdomen/Pelvis CTA 11/29/24 16:09 IMPRESSION: CHEST: 1. Precarinal and hilar adenopathy. 2. Multiple nodular densities in both lungs suggestive of metastatic lesions. 3. Bilateral interstitial thickening which may indicate pneumonitis versus edema versus lymphangitis. 4. Left lower lobe atelectasis versus pneumonia. ABDOMEN/PELVIS: 1. Multiple liver metastatic lesions. Hepatomegaly. 2. Cholelithiasis. 3. Ascites. 4. Highly suggestive pancreatic mass. MRI is advised. 5. Ileostomy with surrounding fluid collection measuring 7.6 x 5.4 cm. 6. Omental caking with adjacent soft tissue density in the transverse colon suggestive of a mass or inflammatory changes. Assessment and Plan Assessment and plan (1) Fever: Code(s): R50.9 - Fever, unspecified Status: Acute (2) Elevated liver enzymes: Code(s): R74.8 - Abnormal levels of other serum enzymes Status: Acute (3) Metastatic adenocarcinoma: Code(s): C79.9 - Secondary malignant neoplasm of unspecified site Status: Acute (4) Abnormal CT of the abdomen: Code(s): R93.5 - Abnormal findings on diagnostic imaging of other abdominal regions, including retroperitoneum Status: Acute (5) Hyperglycemia: Code(s): R73.9 - Hyperglycemia, unspecified Status: Acute (6) Hypertension: Code(s): I10 - Essential (primary) hypertension Status: Chronic Plan The patient presented to the emergency department with complaints of weakness, shortness of breath, and ongoing nausea and vomiting as detailed in HPI. Labs, imaging, EKG, and all reports were personally reviewed. She recently finished a course of antibiotics for ?atypical pneumonia? and she continues to run a low- grade fever and has a WBC count of 22.6. May be related to inflammation and malignancy however infection is a consideration with possible sources to include lungs (CT shows interstitial thickening which may indicate pneumonitis or possible edema versus lymphangitis and aspiration is a possibility given ongoing vomiting), cholecystitis which is unlikely, infection of a fluid collection around the ileostomy which also seems less likely, or even ascending cholangitis. Continue empiric Zosyn for now. Blood cultures have been ordered and are pending. LFTs continue to climb, most notably her bilirubin and alkaline phosphorus. CT scan shows suggestions of a pancreatic mass and a repeat MRCP may be prudent (pancreas was unremarkable last month). GI, surgery, and Oncology were consulted by the ED physician and their input is appreciated. Unfortunately her imaging now shows multiple nodular densities in the lungs in addition to those in the liver as well as omental caking which indicated an aggressive cancer with a poor prognosis. She is eager to start treatment and is not interested in discussing palliative care at this time. Blood pressures have been stable. Check fasting glucose and A1c as her random glucose was 188. Her home medications will be reviewed and resumed as appropriate. Findings and treatment plan were discussed with the patient. Questions were solicited and answered to satisfaction. The patient's medical management will be taken over by the hospitalist team in a.m. Quality VTE Prophylaxis VTE prophylaxis: mechanical ordered If No VTE Prophylaxis Answer both mechanical and pharmacologic: Reason no pharmacologic proph: medical contraindication (may require procedure) Hospitalist MIPS Advance Care Plan I have confirmed that the patient's Advanced Care Plan is present, code status is documented, or surrogate decision maker is listed in patient medical record.: Yes Medication Reconciliation I have utilized all available resources to obtain, update and review the patients current medications (includes all prescriptions, OTC, herbals, cannabis, and nutritional supplements).: Yes
[2024-11-30] MEDS: MORPHINE SULFATE (*CRX) 2 MG/ML INJ IV PUSH ×3 (00:46→19:57)
--- NOTE | 2024-11-30 03:03 | PC.NURSE ---
Daylight Savings Time For Daylight Savings Time Ending in the Fall - Clocks are moved back. For Daylight Savings Time Beginning in the Spring - Clocks are moved ahead. For [facility], the time of change occurs at 0200 hrs. Time is taken from the service observer chief. This entry on the patient's chart recognizes the change in time reflected during documentation. Example: 2 entries for vital signs may be charted for 0200 hrs.
[2024-11-30] MEDS: PIPERACILLN/TAZ 3.375GM/NS50ML 3.375 GM/50 ML BAG IVPB ×4 (04:10→20:57)
[2024-11-30] MEDS: LACTATED RINGERS 1,000 ML 125 ML IV CONT (05:32)
[2024-11-30 06:00] VITALS: BP 140/84; PULSE 130; RESP 18; TEMP 37.1; O2SAT 90
[2024-11-30 06:35] LABS: Basophils Absolute Auto 0.1 K/mm3 (0.0-0.1); Basophils Percent Auto 0.4 % (0.2-1.2); Eosinophils Absolute Auto 0.2 K/mm3 (0-0.3); Eosinophils Percent Auto 0.9 % (0-4.4); Hematocrit 40.2 % (37.0-47.0); Hemoglobin 12.8 g/dL (12.0-15.0); Immature Granulocyte Absolute 0.23 K/mm3 (0.00-0.031); Immature Granulocyte Percent A 1.1 % (0-0.5); Lymphocytes Absolute Auto 0.78 K/mm3 (0.9-3.2); Lymphocytes Percent Auto 3.7 % (18.3-44.2); Mean Corpuscular HGB Conc 31.8 g/dl (32-36); Mean Corpuscular Hemoglobin 27.1 pg (26-34); Monocytes Absolute Auto 1.9 K/mm3 (0.1-0.6); Monocytes Percent Auto 8.9 % (2.6-8.5); Neutrophils Absolute Auto 17.7 K/mm3 (1.3-6.7); Platelet Count Result 116 k/mm3 (150-375); Red Blood Count 4.73 M/mm3 (4.2-5.4); Red Cell Distribution Width 18.4 % (11.5-14.5); White Blood Count 20.8 K/mm3 (4.5-10.0)
[2024-11-30 06:37] LABS: Alanine Aminotransferase 159 U/L (6-35); Albumin Level 2.9 g/dL (3.5-5.1); Anion Gap 14 mmol/L (4-12); Aspartate Amino Transferase 277 U/L (14-36); Bilirubin,Total 12.3 mg/dL (0.2-1.3); Blood Urea Nitrogen 21 mg/dL (7-17); Calcium 8.6 mg/dL (8.4-10.2); Carbon Dioxide 24 mmol/L (22-30); Chloride 97 mmol/L (98-107); Estimated CRCL calculation 73 ml/min; Estimated Glomerular Filt Rate > 60; Glucose 168 mg/dL (65-110); Lipase 141 U/L (23-300); Potassium 3.7 mmol/L (3.4-5.0); Sodium 135 mmol/L (137-145)
[2024-11-30 06:45] LABS: Alkaline Phosphatase 1158 U/L (38-126)
[2024-11-30 07:23] LABS: Hemoglobin A1C 6.2 % (<5.7)
[2024-11-30 08:00] VITALS: O2SAT 92
[2024-11-30 08:48] VITALS: PULSE 130
[2024-11-30] MEDS: METOPROLOL SUCCINATE EXT REL 50 MG TABCR PO (08:48)
[2024-11-30] MEDS: amLODIPine BESYLATE 5 MG TABLET PO (08:48)
[2024-11-30] MEDS: ONDANSETRON INJ 4 MG/2 ML VIAL IV PUSH ×3 (08:52→19:08)
--- NOTE | 2024-11-30 11:16 | P.CONGS_ITS ---
Assessment and Plan Assessment and plan (1) Cholelithiasis: Qualifiers: Biliary obstruction: without biliary obstruction Cholecystitis presence: without cholecystitis Cholelithiasis location: gallbladder Qualified Code(s): K80.20 - Calculus of gallbladder without cholecystitis without obstruction Code(s): K80.20 - Calculus of gallbladder without cholecystitis without obstruction Status: Chronic Assessment and Plan: * On imaging she only has 1 small gallstone in the dependent portion of the gallbladder which does not appear to be causing an obstruction. Her gallbladder does not appear to be the source of any of her problems. She likely has progressing widely metastatic cancer and has an obstruction of the common bile duct. Would await recommendations from GI for whether patient should have ERCP with stent placement. Oncology will have to discuss with patient any potential palliative treatment options. (2) 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: Code(s): C18.9 - Malignant neoplasm of colon, unspecified; C77.2 - Secondary and unspecified malignant neoplasm of intra-abdominal lymph nodes Status: Acute (3) Metastases to the liver: Code(s): C78.7 - Secondary malignant neoplasm of liver and intrahepatic bile duct Status: Chronic (4) Elevated liver enzymes: Code(s): R74.8 - Abnormal levels of other serum enzymes Status: Acute History of Present Illness Consult details Consult date: 11/30/24 Reason for consult: gallstones Requesting physician: Radha Fitzgerald MD Narrative: A 68-year-old woman who I am asked to see for cholelithiasis. She presented to the emergency department yesterday with weakness and shortness of breath. She was just hospitalized from November 18 to November 22 with nausea and vomiting. At that time her gallbladder was worked up but she did not have any findings consistent with acute cholecystitis. Elevated liver enzymes were felt to be due to multiple hepatic metastases and possible distal common bile duct obstruction. She has stage IV colon cancer and has not started chemotherapy yet. She has a diverting ileostomy due to the mass being obstructing. She underwent CT chest/abdomen/pelvis in the emergency department yesterday and this is showing multiple areas of metastases in chest and abdomen. She also has a possible pancreatic mass seen on the CT now. Review of Systems 2 Review of Systems: All systems reviewed & are unremarkable except as noted in HPI and below Eyes: Eyes: Denies change in vision ENT: Denies hearing loss, Denies neck pain and Denies sore throat Cardiovascular: Cardiovascular: Denies chest pain and Denies dyspnea Respiratory: Respiratory: Denies cough, Denies dyspnea and Denies wheezing Gastrointestinal: Gastrointestinal: Reports as per HPI Genitourinary: Genitourinary: Denies hematuria and Denies dysuria Musculoskeletal: Musculoskeletal: Denies arthralgias, Denies joint swelling and Denies neck pain Allergic/Immunologic: Allergic/Immunologic: Denies wheezing [facility] Past Medical History Medical History Kidney stones Stenosis of right carotid artery Metastatic adenocarcinoma Deep venous thrombosis Cervical cancer Breast cancer Hyperlipidemia Hypertension Surgical History Surgical History History of ileostomy (10/28/24) laparoscopic diverting loop ileostomy History of laparotomy open repair for prolapse, possibly cystocele History of total abdominal hysterectomy History of lumpectomy of left breast Family History Family History Sibling Lung cancer COVID Diabetes mellitus Father Leukemia Mother Heart trouble Social History Social History Social History: Surrogate medical decision maker: Suzan Rice, daughter ([phone]). Code status: Full code. Smoking status: Never smoker Second hand tobacco smoke exposure: No Alcohol intake: never Substance use: never Do You Feel Safe in your Home?: Yes Lack of Transportation: No Lack of Food: Never True Current Housing: I Have Housing Concerned About Future Housing: No Difficulty Paying Gas/Electric Bills: No Difficulty Paying for Meds: No Currently Unemployed: No Education: Grade School Difficulty w/ Childcare or Family Care: No Spiritual care concerns: No Meds Home Medications and Allergies Home Medications ?Medication ?Instructions ?Recorded ?Confirmed ?Type amlodipine 5 mg tablet 5 mg PO DAILY 10/15/24 11/29/24 History aspirin 81 mg chewable tablet 81 mg PO DAILY 10/15/24 11/29/24 History ezetimibe 10 mg tablet 10 mg PO DAILY 10/15/24 11/29/24 History metoprolol succinate 50 mg 50 mg PO Q12H 10/15/24 11/29/24 History tablet,extended release 24 hr pravastatin 40 mg tablet 40 mg PO DAILY 10/15/24 11/29/24 History benzonatate 100 mg capsule 100 mg PO TID #60 caps 11/23/24 11/29/24 Rx dextromethorphan-guaifenesin 10 10 ml PO Q4H PRN Cough #237 mL 11/23/24 11/29/24 Rx mg-100 mg/5 mL oral syrup potassium chloride 20 mEq 40 meq (2 x 20 mEq) PO DAILY #60 11/23/24 11/29/24 Rx tablet,extended release (K-Tab) tabs Allergies Allergy/AdvReac Type Severity Reaction Status Date / Time No Known Allergies Allergy Verified 11/29/24 12:51 Vital Signs Vital Signs - 24 hr 11/29/24 13:02 11/29/24 13:19 11/29/24 13:30 Temperature 97.6 F Pulse Rate 117 H 117 H 101 H Respiratory Rate 18 17 27 H Blood Pressure 141/75 H Pulse Oximetry 93 91 Oxygen Delivery Room Air Oxygen Flow Rate 11/29/24 13:45 11/29/24 14:00 11/29/24 14:12 Temperature Pulse Rate 106 H 108 H 106 H Respiratory Rate 33 H 17 24 H Blood Pressure 140/71 Pulse Oximetry 96 93 Oxygen Delivery Oxygen Flow Rate 11/29/24 14:34 11/29/24 14:47 11/29/24 14:48 Temperature Pulse Rate 107 H 107 H Respiratory Rate 22 H 29 H Blood Pressure 158/68 H Pulse Oximetry 94 94 95 Oxygen Delivery Oxygen Flow Rate 11/29/24 15:00 11/29/24 15:02 11/29/24 15:15 Temperature Pulse Rate 107 H 109 H 110 H Respiratory Rate 23 H 22 H 25 H Blood Pressure 150/65 H Pulse Oximetry 95 94 95 Oxygen Delivery Oxygen Flow Rate 11/29/24 15:30 11/29/24 16:23 11/29/24 17:53 Temperature Pulse Rate 112 H 113 H 115 H Respiratory Rate 28 H 16 23 H Blood Pressure 140/68 131/81 Pulse Oximetry 95 92 94 Oxygen Delivery Oxygen Flow Rate 11/29/24 17:54 11/29/24 18:37 11/29/24 20:00 Temperature Pulse Rate 115 H 112 H Respiratory Rate 20 Blood Pressure 138/86 Pulse Oximetry 95 95 Oxygen Delivery Nasal Cannula Oxygen Flow Rate 2 11/29/24 22:00 11/30/24 06:00 11/30/24 08:48 Temperature 99.9 F H 98.8 F Pulse Rate 120 H 130 H 130 H Respiratory Rate 18 18 Blood Pressure 130/64 140/84 Pulse Oximetry 91 90 Oxygen Delivery Oxygen Flow Rate Exam 2 Const: General: alert; No acute distress Orientation/consciousness: patient oriented x3 Limitations: physical limitations (Weakness) Other: Jaundice skin HENMT: Head: normocephalic and atraumatic Ears: hearing grossly normal bilaterally Face/Nose/Sinus: Normal external nose present and Normal nares present Mouth: Yes Normal oral and palatal mucosa present and Yes moist mucous membranes Eyes: General: appearance normal, both eyes and all related structures C onjunctivae: conjunctivae normal Sclera: sclerae normal Pupils: Equal, round and reactive pupils present EOM: EOMs intact bilaterally Neck: Neck: normal visual inspection, full ROM, no lymphadenopathy, supple and no JVD Lymphatic: no lymphadenopathy noted Chest: Chest palpation & inspection: normal inspection of the chest Resp: Effort & Inspection: normal respiratory effort and able to speak in complete sentences Auscultation: clear to auscultation bilaterally P ercussion: percussion normal Cardio: Jugular venous distension: no JVD Rate: regular rate Rhythm: r egular rhythm Heart sounds: S1 normal heart sound present and S2 normal heart sound present Peripheral pulses: Peripheral pulses 2+ throughout GI: Inspection: normal to inspection GI Palp: Yes Soft to palpation, No Tenderness to palpation present (GI) (No focal tenderness to palpation) and No Guarding due to palpation present (GI) Auscultation: normal bowel sounds : General: Yes no CVA tenderness Back/Spine/Pelvis: Back: no CVA tenderness Skin: General skin exam: normal color and dry skin Neuro: General: patient oriented x3, gait normal, moves all extremities, no focal motor deficits and CN's II-XI intact bilaterally Cranial nerves: Yes Equal, round and reactive pupils present Speech: normal speech Extrem: General: normal to inspection and capillary refill normal Results Labs 11/30/24 05:52 11/30/24 05:52 Labs: Abnormal lab results 11/29/24 11/29/24 11/29/24 Range/Units 13:54 14:39 16:02 WBC 22.6 H (4.5-10.0) K/mm3 MCHC 31.9 L (32-36) g/dl RDW 17.9 H (11.5-14.5) % Plt Count 145 L (150-375) k/mm3 MPV 12.3 H (7.4-10.4) fl Immature Gran % (Auto) 1.2 H (0-0.5) % Neut % (Auto) 85.7 H (45.5-73.1) % Lymph % (Auto) 3.4 L (18.3-44.2) % Young % (Auto) (2.6-8.5) % Lymph # (Auto) 0.76 L (0.9-3.2) K/mm3 Young # (Auto) 1.9 H (0.1-0.6) K/mm3 Abs Immat Gran (auto) 0.26 H (0.00-0.031) K/mm3 Absolute Neuts (auto) 19.3 H (1.3-6.7) K/mm3 PT 16.6 H (11.1-14.7) Seconds Sodium 135 L (137-145) mmol/L Chloride 95 L (98-107) mmol/L Anion Gap 16 H (4-12) mmol/L BUN 19 H D (7-17) mg/dL Creatinine 0.45 L (0.7-1.0) mg/dL Glucose 188 H (65-110) mg/dL Hemoglobin A1c (<5.7) % Total Bilirubin 12.3 H (0.2-1.3) mg/dL AST 277 H (14-36) U/L ALT 183 H (6-35) U/L Alkaline Phosphatase 1063 H (38-126) U/L Ammonia < 9 L (9-30) umol/L NT-Pro-B Natriuret Pep 381 H (19.9-100) pg/mL Total Protein (6.3-8.2) g/dL Albumin 3.3 L (3.5-5.1) g/dL Urine Appearance Cloudy H (Clear) Ur Specific [place] > 1.045 H (1.001-1.035) Urine Protein 1+ H (Negative) mg/dL Urine Nitrate Positive H (Negative) Urine Bilirubin 3+ H (Negative) Leukocyte Esterase Rfl 1+ H (Negative) JULIAN/UL Urine Mucus Few H /lpf Urine Yeast (Budding) Present H (None) /hpf 11/30/24 Range/Units 05:52 WBC 20.8 H (4.5-10.0) K/mm3 MCHC 31.8 L (32-36) g/dl RDW 18.4 H (11.5-14.5) % Plt Count 116 L (150-375) k/mm3 MPV 12.0 H (7.4-10.4) fl Immature Gran % (Auto) 1.1 H (0-0.5) % Neut % (Auto) 85.0 H (45.5-73.1) % Lymph % (Auto) 3.7 L (18.3-44.2) % Young % (Auto) 8.9 H (2.6-8.5) % Lymph # (Auto) 0.78 L (0.9-3.2) K/mm3 Young # (Auto) 1.9 H (0.1-0.6) K/mm3 Abs Immat Gran (auto) 0.23 H (0.00-0.031) K/mm3 Absolute Neuts (auto) 17.7 H (1.3-6.7) K/mm3 PT (11.1-14.7) Seconds Sodium 135 L (137-145) mmol/L Chloride 97 L (98-107) mmol/L Anion Gap 14 H (4-12) mmol/L BUN 21 H (7-17) mg/dL Creatinine 0.60 L (0.7-1.0) mg/dL Glucose 168 H (65-110) mg/dL Hemoglobin A1c 6.2 H (<5.7) % Total Bilirubin 12.3 H (0.2-1.3) mg/dL AST 277 H (14-36) U/L ALT 159 H (6-35) U/L Alkaline Phosphatase 1158 H (38-126) U/L Ammonia (9-30) umol/L NT-Pro-B Natriuret Pep (19.9-100) pg/mL Total Protein 6.0 L (6.3-8.2) g/dL Albumin 2.9 L (3.5-5.1) g/dL Urine Appearance (Clear) Ur Specific [place] (1.001-1.035) Urine Protein (Negative) mg/dL Urine Nitrate (Negative) Urine Bilirubin (Negative) Leukocyte Esterase Rfl (Negative) JULIAN/UL Urine Mucus /lpf Urine Yeast (Budding) (None) /hpf Diabetes panel 11/29/24 11/30/24 Range/Units 13:54 05:52 Sodium 135 L 135 L (137-145) mmol/L Potassium 3.6 3.7 (3.4-5.0) mmol/L Chloride 95 L 97 L (98-107) mmol/L Carbon Dioxide 24 24 (22-30) mmol/L BUN 19 H D 21 H (7-17) mg/dL Creatinine 0.45 L 0.60 L (0.7-1.0) mg/dL Glucose 188 H 168 H (65-110) mg/dL Hemoglobin A1c 6.2 H (<5.7) % Calcium 8.9 8.6 (8.4-10.2) mg/dL AST 277 H 277 H (14-36) U/L ALT 183 H 159 H (6-35) U/L Alkaline Phosphatase 1063 H 1158 H (38-126) U/L Total Protein 7.0 6.0 L (6.3-8.2) g/dL Albumin 3.3 L 2.9 L (3.5-5.1) g/dL Calcium panel 11/29/24 11/30/24 Range/Units 13:54 05:52 Calcium 8.9 8.6 (8.4-10.2) mg/dL Albumin 3.3 L 2.9 L (3.5-5.1) g/dL Pituitary panel 11/29/24 11/30/24 Range/Units 13:54 05:52 Sodium 135 L 135 L (137-145) mmol/L Potassium 3.6 3.7 (3.4-5.0) mmol/L Chloride 95 L 97 L (98-107) mmol/L Carbon Dioxide 24 24 (22-30) mmol/L BUN 19 H D 21 H (7-17) mg/dL Creatinine 0.45 L 0.60 L (0.7-1.0) mg/dL Glucose 188 H 168 H (65-110) mg/dL Calcium 8.9 8.6 (8.4-10.2) mg/dL Adrenal panel 11/29/24 11/30/24 Range/Units 13:54 05:52 Sodium 135 L 135 L (137-145) mmol/L Potassium 3.6 3.7 (3.4-5.0) mmol/L Chloride 95 L 97 L (98-107) mmol/L Carbon Dioxide 24 24 (22-30) mmol/L BUN 19 H D 21 H (7-17) mg/dL Creatinine 0.45 L 0.60 L (0.7-1.0) mg/dL Glucose 188 H 168 H (65-110) mg/dL Calcium 8.9 8.6 (8.4-10.2) mg/dL Total Bilirubin 12.3 H 12.3 H (0.2-1.3) mg/dL AST 277 H 277 H (14-36) U/L ALT 183 H 159 H (6-35) U/L Alkaline Phosphatase 1063 H 1158 H (38-126) U/L Total Protein 7.0 6.0 L (6.3-8.2) g/dL Albumin 3.3 L 2.9 L (3.5-5.1) g/dL All other labs normal. Imaging Additional studies: ITS Impressions Chest X-Ray 11/29/24 13:52 IMPRESSION: 1. Diffuse interstitial pattern in the lungs, likely mild pulmonary edema. Chest X-Ray 11/29/24 14:10 IMPRESSION: Cardiomegaly with cardiac decompensation and pulmonary edema. Pneumonia is not excluded. Chest/Abdomen/Pelvis CTA 11/29/24 16:09 IMPRESSION: CHEST: 1. Precarinal and hilar adenopathy. 2. Multiple nodular densities in both lungs suggestive of metastatic lesions. 3. Bilateral interstitial thickening which may indicate pneumonitis versus edema versus lymphangitis. 4. Left lower lobe atelectasis versus pneumonia. ABDOMEN/PELVIS: 1. Multiple liver metastatic lesions. Hepatomegaly. 2. Cholelithiasis 3. Ascites. 4. Highly suggestive pancreatic mass. MRI is advised. 5. Ileostomy with surrounding fluid collection measuring 7.6 x 5.4 cm. 6. Omental caking with adjacent soft tissue density in the transverse colon suggestive of a mass or inflammatory changes.
--- NOTE | 2024-11-30 13:07 | P.CONGI_ITS ---
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: Code(s): C18.9 - Malignant neoplasm of colon, unspecified; C77.2 - Secondary and unspecified malignant neoplasm of intra-abdominal lymph nodes Status: Acute Assessment and Plan: worsening disease, now with more jaundice- this is most likely from widely liver lesions and carcinomatosis she had recent MRCP and did not see obvious obstructive jaundice, probably no need to repeat again. I do not think that ERCP will make a difference family would like to talk to oncologist regarding prognosis and clinical course consider palliative care/hospice will follow as needed (2) Metastases to the liver: Code(s): C78.7 - Secondary malignant neoplasm of liver and intrahepatic bile duct Status: Chronic Assessment and Plan: also involving lungs, etc poor prognosis (3) Elevated liver enzymes: Code(s): R74.8 - Abnormal levels of other serum enzymes Status: Acute (4) Nausea and vomiting in adult: Code(s): R11.2 - Nausea with vomiting, unspecified Status: Resolved (5) Weight loss: Code(s): R63.4 - Abnormal weight loss Status: Acute (6) Stricture intestinal: Code(s): K56.699 - Other intestinal obstruction unspecified as to partial versus complete obstruction Status: Acute GI Consult Note Consult date/time: 11/30/24 13:07 Reason for consult: metastatic colon cancer to liver, elevated liver enzymes HPI: Hayden Estrella is a 68 year old female recently diagnosed with metastatic undifferentiated adenocarcinoma arising in the colon with liver metastasis and peritoneal carcinomatosis. Patient is status post diverting ileostomy due to transverse colon stricture done on October 27, 2024. She has been admitted since with recurrent nausea, vomiting, weight loss and elevated liver enzymes. EGD did not reveal any acute findings. She had a recent MRCP did not show any signs of obstruction and she was seen by General surgery but no obvious cholecystitis. Multiple liver lesions, also was seen by oncologist but has not received chemotherapy yet. Here with ongoing nausea, generalized weakness, anorexia, worsening jaundice with bili 12 (recently 4). CT scan with multiple lesions in liver/lungs, carcinomatosis, also possible pancreatic lesion. Review of Systems 2 Constitutional: Constitutional: Reports fatigue, Reports lethargy and Reports weakness Eyes: Eyes: Denies blurry vision ENT: Reports Normal hearing present Cardiovascular: Cardiovascular: Denies chest pain Respiratory: Respiratory: Denies cough Gastrointestinal: Gastrointestinal: Reports nausea and Reports vomiting Genitourinary: Genitourinary: Denies urinary urgency Musculoskeletal: Musculoskeletal: Denies neck pain Integumentary/Breasts: Skin/Breast: Denies rash Neurologic: Denies Abnormal speech present Psychiatric: Psychiatric: Denies behavioral changes [facility] Past Medical History Medical History (Updated 11/30/24 @ 13:14 by Ramos Capellan MD) Weight loss Kidney stones Stenosis of right carotid artery Metastatic adenocarcinoma Deep venous thrombosis Cervical cancer Breast cancer Hyperlipidemia Hypertension Surgical History Surgical History History of ileostomy (10/28/24) laparoscopic diverting loop ileostomy History of laparotomy open repair for prolapse, possibly cystocele History of total abdominal hysterectomy History of lumpectomy of left breast Family History Family History Sibling Lung cancer COVID Diabetes mellitus Father Leukemia Mother Heart trouble Social History Social History Social History: Surrogate medical decision maker: Suzan Rice, daughter ([phone]). Code status: Full code. Smoking status: Never smoker Second hand tobacco smoke exposure: No Alcohol intake: never Substance use: never Do You Feel Safe in your Home?: Yes Lack of Transportation: No Lack of Food: Never True Current Housing: I Have Housing Concerned About Future Housing: No Difficulty Paying Gas/Electric Bills: No Difficulty Paying for Meds: No Currently Unemployed: No Education: Grade School Difficulty w/ Childcare or Family Care: No Spiritual care concerns: No Meds Home Medications and Allergies Home Medications ?Medication ?Instructions ?Recorded ?Confirmed ?Type amlodipine 5 mg tablet 5 mg PO DAILY 10/15/24 11/29/24 History aspirin 81 mg chewable tablet 81 mg PO DAILY 10/15/24 11/29/24 History ezetimibe 10 mg tablet 10 mg PO DAILY 10/15/24 11/29/24 History metoprolol succinate 50 mg 50 mg PO Q12H 10/15/24 11/29/24 History tablet,extended release 24 hr pravastatin 40 mg tablet 40 mg PO DAILY 10/15/24 11/29/24 History benzonatate 100 mg capsule 100 mg PO TID #60 caps 11/23/24 11/29/24 Rx dextromethorphan-guaifenesin 10 10 ml PO Q4H PRN Cough #237 mL 11/23/24 11/29/24 Rx mg-100 mg/5 mL oral syrup potassium chloride 20 mEq 40 meq (2 x 20 mEq) PO DAILY #60 11/23/24 11/29/24 Rx tablet,extended release (K-Tab) tabs Allergies Allergy/AdvReac Type Severity Reaction Status Date / Time No Known Allergies Allergy Verified 11/29/24 12:51 Vital Signs Vital Signs - 24 hr 11/29/24 13:02 11/29/24 13:19 11/29/24 13:30 Temperature 97.6 F Pulse Rate 117 H 117 H 101 H Respiratory Rate 18 17 27 H Blood Pressure 141/75 H Pulse Oximetry 93 91 Oxygen Delivery Room Air Oxygen Flow Rate 11/29/24 13:45 11/29/24 14:00 11/29/24 14:12 Temperature Pulse Rate 106 H 108 H 106 H Respiratory Rate 33 H 17 24 H Blood Pressure 140/71 Pulse Oximetry 96 93 Oxygen Delivery Oxygen Flow Rate 11/29/24 14:34 11/29/24 14:47 11/29/24 14:48 Temperature Pulse Rate 107 H 107 H Respiratory Rate 22 H 29 H Blood Pressure 158/68 H Pulse Oximetry 94 94 95 Oxygen Delivery Oxygen Flow Rate 11/29/24 15:00 11/29/24 15:02 11/29/24 15:15 Temperature Pulse Rate 107 H 109 H 110 H Respiratory Rate 23 H 22 H 25 H Blood Pressure 150/65 H Pulse Oximetry 95 94 95 Oxygen Delivery Oxygen Flow Rate 11/29/24 15:30 11/29/24 16:23 11/29/24 17:53 Temperature Pulse Rate 112 H 113 H 115 H Respiratory Rate 28 H 16 23 H Blood Pressure 140/68 131/81 Pulse Oximetry 95 92 94 Oxygen Delivery Oxygen Flow Rate 11/29/24 17:54 11/29/24 18:37 11/29/24 20:00 Temperature Pulse Rate 115 H 112 H Respiratory Rate 20 Blood Pressure 138/86 Pulse Oximetry 95 95 Oxygen Delivery Nasal Cannula Oxygen Flow Rate 2 11/29/24 22:00 11/30/24 06:00 11/30/24 08:48 Temperature 99.9 F H 98.8 F Pulse Rate 120 H 130 H 130 H Respiratory Rate 18 18 Blood Pressure 130/64 140/84 Pulse Oximetry 91 90 Oxygen Delivery Oxygen Flow Rate Exam 2 Const: General: alert; No acute distress Orientation/consciousness: patient oriented x3 Limitations: physical limitations (Weakness) Other: Jaundice skin HENMT: Head: normocephalic Ears: hearing grossly normal bilaterally Eyes: General: appearance normal, both eyes and all related structures Neck: Neck: normal visual inspection and full ROM Chest: Chest palpation & inspection: normal inspection of the chest Resp: Effort & Inspection: normal respiratory effort and able to speak in complete sentences Cardio: Jugular venous distension: no JVD Rate: regular rate Rhythm: r egular rhythm GI: Inspection: normal to inspection GI Palp: Yes Soft to palpation and No Tenderness to palpation present (GI) (No focal tenderness to palpation) O ther: ostomy in place : General: Yes no CVA tenderness Back/Spine/Pelvis: Back: no CVA tenderness Skin: General skin exam: normal color and dry skin Other: icteric Neuro: General: patient oriented x3 and no focal motor deficits Speech: n ormal speech Extrem: General: normal to inspection Psych: Affect: Anxious affect present Results Labs 11/30/24 05:52 11/30/24 05:52 Labs: Short CBC 11/29/24 11/30/24 Range/Units 13:54 05:52 WBC 22.6 H 20.8 H (4.5-10.0) K/mm3 Hgb 13.4 12.8 (12.0-15.0) g/dL Hct 42.0 40.2 (37.0-47.0) % Plt Count 145 L 116 L (150-375) k/mm3 BMP 11/29/24 11/30/24 13:54 05:52 Sodium 135 L 135 L Potassium 3.6 3.7 Chloride 95 L 97 L Carbon Dioxide 24 24 BUN 19 H D 21 H Creatinine 0.45 L 0.60 L Glucose 188 H 168 H Calcium 8.9 8.6 Cardiac Enzymes 11/29/24 Range/Units 14:39 Troponin I < 0.012 (0.000-0.034) ng/mL Liver Function 11/29/24 11/30/24 Range/Units 13:54 05:52 Total Bilirubin 12.3 H 12.3 H (0.2-1.3) mg/dL AST 277 H 277 H (14-36) U/L ALT 183 H 159 H (6-35) U/L Alkaline Phosphatase 1063 H 1158 H (38-126) U/L Albumin 3.3 L 2.9 L (3.5-5.1) g/dL Urine 11/29/24 Range/Units 16:02 Urine Color Dark yellow (Yellow) Urine Appearance Cloudy H (Clear) Urine pH 5.5 (5.0-9.0) Ur Specific [place] > 1.045 H (1.001-1.035) Urine Protein 1+ H (Negative) mg/dL Urine Glucose (UA) Negative (Negative) mg/dL
--- NOTE | 2024-11-30 13:08 | P.PNIM_ITS ---
Progress Note: A&P Assessment and Plan (1) Fever: Code(s): R50.9 - Fever, unspecified Status: Acute (2) Elevated liver enzymes: Code(s): R74.8 - Abnormal levels of other serum enzymes Status: Acute (3) Metastatic adenocarcinoma: Code(s): C79.9 - Secondary malignant neoplasm of unspecified site Status: Acute (4) Abnormal CT of the abdomen: Code(s): R93.5 - Abnormal findings on diagnostic imaging of other abdominal regions, including retroperitoneum Status: Acute (5) Hyperglycemia: Code(s): R73.9 - Hyperglycemia, unspecified Status: Acute (6) Hypertension: Code(s): I10 - Essential (primary) hypertension Status: Chronic Plan Possible Pneumonia CT chest showed bilateral interstitial which may indicate pneumonitis Leukocytosis WBC 22.6, Continue Zosyn Levaquin and Flagyl MRSA pending, blood and sputum culture pending Monitor Pancreatic ca with mets to kidney, Liver and lungs with omental caking Patient is yet to start treatment and has had multiple and recurrent hospitalization Discussed with family to consider hospice care in the Meantime GI, Surgery and oncology consulted Elevated liver enzymes with hyperbilirubinemia Likely from Ca above continue above care and continue monitoring Bili 12.3, AST 277, ALT 159, ALP Phosphatase 1158 Vomiting and generalized weakness Continue both care. Hypertension titrate home medication clinical course. DVT prophylaxis subQ Lovenox Discussed with family about considering hospice given the advanced cancer and recurrent hospitalization, family is meeting amongst themselves will inform us of the decision. Subjective Date/time seen: 11/30/24 13:08 Interval history: Patient comfortable at bedside surrounded by family and they are considering hospice and will inform us of there decision Review of Systems Review of Systems: 12 systems were reviewed and are negativ e except for as per HPI. Exam Narrative: General: Moderately ill-appearing female lying on her left side in bed in no acute distress. Weight: 84.3 kg. BMI: 36.3. HEENT: PERRL, EOMI. Bilateral conjunctival icterus. Tacky mucous membranes. Neck: Supple. Respiratory: Respirations are nonlabored. Lung sounds are a bit coarse but are otherwise clear to auscultation. Cardiovascular: Regular rate and rhythm with S1-S2. Gastrointestinal: Abdomen is protuberant with positive bowel sounds. She is tender to deeper palpation throughout the abdomen without guarding or rebound tenderness. Negative Maurer sign. Skin: Warm, dry, and jaundiced. Extremities: No cyanosis, clubbing, or significant edema. Radial and pedal pulses intact. No palpable knots or cords. Negative Landy sign bilaterally. Neurological: Alert. Cranial nerves 2-12 are grossly intact. No gross focal deficits to casual conversation. Psychiatric: Pleasant and cooperative with normal mood and affect. Judgment and insight intact. Objective Data Vital Signs Vital Signs: Vital Signs - 24 hr 11/29/24 13:02 11/29/24 13:19 11/29/24 13:30 Temperature 97.6 F Pulse Rate 117 H 117 H 101 H Respiratory Rate 18 17 27 H Blood Pressure 141/75 H Pulse Oximetry 93 91 Oxygen Delivery Room Air Oxygen Flow Rate 11/29/24 13:45 11/29/24 14:00 11/29/24 14:12 Temperature Pulse Rate 106 H 108 H 106 H Respiratory Rate 33 H 17 24 H Blood Pressure 140/71 Pulse Oximetry 96 93 Oxygen Delivery Oxygen Flow Rate 11/29/24 14:34 11/29/24 14:47 11/29/24 14:48 Temperature Pulse Rate 107 H 107 H Respiratory Rate 22 H 29 H Blood Pressure 158/68 H Pulse Oximetry 94 94 95 Oxygen Delivery Oxygen Flow Rate 11/29/24 15:00 11/29/24 15:02 11/29/24 15:15 Temperature Pulse Rate 107 H 109 H 110 H Respiratory Rate 23 H 22 H 25 H Blood Pressure 150/65 H Pulse Oximetry 95 94 95 Oxygen Delivery Oxygen Flow Rate 11/29/24 15:30 11/29/24 16:23 11/29/24 17:53 Temperature Pulse Rate 112 H 113 H 115 H Respiratory Rate 28 H 16 23 H Blood Pressure 140/68 131/81 Pulse Oximetry 95 92 94 Oxygen Delivery Oxygen Flow Rate 11/29/24 17:54 11/29/24 18:37 11/29/24 20:00 Temperature Pulse Rate 115 H 112 H Respiratory Rate 20 Blood Pressure 138/86 Pulse Oximetry 95 95 Oxygen Delivery Nasal Cannula Oxygen Flow Rate 2 11/29/24 22:00 11/30/24 06:00 11/30/24 08:48 Temperature 99.9 F H 98.8 F Pulse Rate 120 H 130 H 130 H Respiratory Rate 18 18 Blood Pressure 130/64 140/84 Pulse Oximetry 91 90 Oxygen Delivery Oxygen Flow Rate Intake/Output Intake/Output: Intake & Output 11/27/24 11/28/24 11/29/24 12/01/24 23:59 23:59 23:59 00:59 Intake Total 50 1616.7 Balance 50 1616.7 Meds/Results Medications: Active Medications Generic Name Dose Route Start Last Admin Trade Name Freq PRN Reason Stop Dose Admin Amlodipine Besylate 5 mg 11/30/24 09:00 11/30/24 08:48 Amlodipine Besylate 5 Mg Tablet PO 5 mg DAILY [facility] Administration Lactated Ringer's 1,000 mls @ 85 mls/hr 11/29/24 17:40 11/30/24 11:55 Lr - Lactated Ringers Iv IV CONT Not Given .[id number] [facility] Piperacillin/Tazobactam/Dextrose 3.375 gm in 50 mls @ 100 mls/hr 11/30/24 04:00 11/30/24 11:34 Zosyn 3.375 Gm/Ns 50 Ml IVPB Infused Q6H [facility] Infusion Metoprolol Succinate 50 mg 11/30/24 09:00 11/30/24 08:48 Metoprolol Succinate Ext Rel 50 Mg Tabcr PO 50 mg DAILY [facility] Administration Morphine Sulfate 2 mg 11/29/24 23:58 11/30/24 11:07 Morphine Sulfate (*Crx) 2 Mg/Ml Inj IV PUSH 2 mg Q4H PRN Administration Pain Rated 4-6 Morphine Sulfate 4 mg 11/29/24 23:58 Morphine Sulfate (*Crx) 4 Mg/Ml Inj IV PUSH Q4H PRN Pain Rated 7-10 Ondansetron HCl 4 mg 11/29/24 17:38 11/30/24 08:52 Ondansetron Inj 4 Mg/2 Ml Vial IV PUSH 4 mg Q4H PRN Administration Nausea Potassium Chloride 40 meq 11/30/24 08:00 11/30/24 08:46 Potassium Chloride 20 Meq Er Tablet PO Not Given DAILY@0800 [facility] Radiology Results: ITS Impressions Chest X-Ray 11/29/24 14:10 IMPRESSION: Cardiomegaly with cardiac decompensation and pulmonary edema. Pneumonia is not excluded. Chest/Abdomen/Pelvis CTA 11/29/24 16:09 IMPRESSION: CHEST: 1. Precarinal and hilar adenopathy. 2. Multiple nodular densities in both lungs suggestive of metastatic lesions. 3. Bilateral interstitial thickening which may indicate pneumonitis versus edema versus lymphangitis. 4. Left lower lobe atelectasis versus pneumonia. ABDOMEN/PELVIS: 1. Multiple liver metastatic lesions. Hepatomegaly. 2. Cholelithiasis 3. Ascites. 4. Highly suggestive pancreatic mass. MRI is advised. 5. Ileostomy with surrounding fluid collection measuring 7.6 x 5.4 cm. 6. Omental caking with adjacent soft tissue density in the transverse colon suggestive of a mass or inflammatory changes. Labs Labs: Laboratory Results - last 24 hr 11/29/24 11/29/24 11/29/24 13:54 14:39 16:02 WBC 22.6 H RBC 4.93 Hgb 13.4 Hct 42.0 MCV 85.2 MCH 27.2 MCHC 31.9 L RDW 17.9 H Plt Count 145 L MPV 12.3 H Immature Gran % (Auto) 1.2 H Neut % (Auto) 85.7 H Lymph % (Auto) 3.4 L [place] % (Auto) 8.4 Eos % (Auto) 0.9 Baso % (Auto) 0.4 Lymph # (Auto) 0.76 L [place] # (Auto) 1.9 H Eos # (Auto) 0.2 Baso # (Auto) 0.1 Abs Immat Gran (auto) 0.26 H Absolute Neuts (auto) 19.3 H Absolute Nucleated RBC 0.000 Nucleated RBC % 0.0 PT 16.6 H INR 1.3 APTT 26.7 Sodium 135 L Potassium 3.6 Chloride 95 L Carbon Dioxide 24 Anion Gap 16 H BUN 19 H D Creatinine 0.45 L Estim Creat Clear Calc 95 Estimated GFR > 60 Glucose 188 H Hemoglobin A1c Calcium 8.9 Total Bilirubin 12.3 H AST 277 H ALT 183 H Alkaline Phosphatase 1063 H Ammonia < 9 L Troponin I < 0.012 NT-Pro-B Natriuret Pep 381 H Total Protein 7.0 Albumin 3.3 L Lipase Urine Color Dark yellow Urine Appearance Cloudy H Urine pH 5.5 Ur Specific [place] > 1.045 H Urine Protein 1+ H Urine Glucose (UA) Negative Urine Ketones Negative Ur Blood (Man) Negative Urine Nitrate Positive H Urine Bilirubin 3+ H Urine Urobilinogen 0.2 Add Ur Microanalysis Reviewed Leukocyte Esterase Rfl 1+ H Urine RBC 0-2 Urine WBC 0-5 Ur Squamous Epith Cells Moderate Urine Bacteria None seen Urine Casts 6-10 Urine Mucus Few H Urine Yeast (Budding) Present H 11/30/24 05:52 WBC 20.8 H RBC 4.73 Hgb 12.8 Hct 40.2 MCV 85.0 MCH 27.1 MCHC 31.8 L RDW 18.4 H Plt Count 116 L MPV 12.0 H Immature Gran % (Auto) 1.1 H Neut % (Auto) 85.0 H Lymph % (Auto) 3.7 L [place] % (Auto) 8.9 H Eos % (Auto) 0.9 Baso % (Auto) 0.4 Lymph # (Auto) 0.78 L [place] # (Auto) 1.9 H Eos # (Auto) 0.2 Baso # (Auto) 0.1 Abs Immat Gran (auto) 0.23 H Absolute Neuts (auto) 17.7 H Absolute Nucleated RBC 0.000 Nucleated RBC % 0.0 PT INR APTT Sodium 135 L Potassium 3.7 Chloride 97 L Carbon Dioxide 24 Anion Gap 14 H BUN 21 H Creatinine 0.60 L Estim Creat Clear Calc 73 Estimated GFR > 60 Glucose 168 H Hemoglobin A1c 6.2 H Calcium 8.6 Total Bilirubin 12.3 H AST 277 H ALT 159 H Alkaline Phosphatase 1158 H Ammonia Troponin I NT-Pro-B Natriuret Pep Total Protein 6.0 L Albumin 2.9 L Lipase 141 Urine Color Urine Appearance Urine pH Ur Specific [place] Urine Protein Urine Glucose (UA) Urine Ketones Ur Blood (Man) Urine Nitrate Urine Bilirubin Urine Urobilinogen Add Ur Microanalysis Leukocyte Esterase Rfl Urine RBC Urine WBC Ur Squamous Epith Cells Urine Bacteria Urine Casts Urine Mucus Urine Yeast (Budding) Quality VTE Prophylaxis VTE prophylaxis: mechanical ordered
[2024-11-30 14:00] VITALS: BP 130/65; PULSE 127; RESP 18; TEMP 36.6; O2SAT 91
[2024-11-30] MEDS: MORPHINE SULFATE (*CRX) 4 MG/ML INJ IV PUSH (15:10)
[2024-11-30 20:00] VITALS: O2SAT 92
[2024-11-30 22:00] VITALS: BP 154/91; PULSE 133; RESP 18; TEMP 36.2; O2SAT 92
[2024-12-01] MEDS: ONDANSETRON INJ 4 MG/2 ML VIAL IV PUSH ×4 (03:20→15:12)
[2024-12-01] MEDS: PIPERACILLN/TAZ 3.375GM/NS50ML 3.375 GM/50 ML BAG IVPB ×4 (03:20→21:59)
[2024-12-01 05:11] VITALS: BP 151/85; PULSE 130; RESP 18; TEMP 36.2; O2SAT 93
[2024-12-01 08:00] VITALS: PULSE 115; O2SAT 91
[2024-12-01] MEDS: ENOXAPARIN 40 MG/0.4 ML SYRINGE SUB-Q (08:06)
[2024-12-01 08:09] VITALS: PULSE 115
[2024-12-01] MEDS: METOPROLOL SUCCINATE EXT REL 50 MG TABCR PO (08:09)
[2024-12-01] MEDS: POTASSIUM CHLORIDE 20 MEQ ER TABLET 40 MEQ PO (08:09)
[2024-12-01] MEDS: amLODIPine BESYLATE 5 MG TABLET PO (08:09)
[2024-12-01 12:45] VITALS: BMI 36.3
--- NOTE | 2024-12-01 12:53 | P.PNIM_ITS ---
Progress Note: A&P Assessment and Plan (1) Fever: Code(s): R50.9 - Fever, unspecified Status: Acute (2) Elevated liver enzymes: Code(s): R74.8 - Abnormal levels of other serum enzymes Status: Acute (3) Metastatic adenocarcinoma: Code(s): C79.9 - Secondary malignant neoplasm of unspecified site Status: Acute (4) Abnormal CT of the abdomen: Code(s): R93.5 - Abnormal findings on diagnostic imaging of other abdominal regions, including retroperitoneum Status: Acute (5) Hyperglycemia: Code(s): R73.9 - Hyperglycemia, unspecified Status: Acute (6) Hypertension: Code(s): I10 - Essential (primary) hypertension Status: Chronic Plan Possible Pneumonia CT chest showed bilateral interstitial which may indicate pneumonitis Leukocytosis WBC 22.6, Continue Zosyn Levaquin and Flagyl MRSA pending, blood and sputum culture pending Monitor Pancreatic ca with mets to kidney, Liver and lungs with omental caking Patient is yet to start treatment and has had multiple and recurrent hospitalization Discussed with family to consider hospice care in the Meantime GI, Surgery and oncology consulted Elevated liver enzymes with hyperbilirubinemia Likely from Ca above continue above care and continue monitoring Bili 12.3, AST 277, ALT 159, ALP Phosphatase 1158 Vomiting and generalized weakness Continue both care. Hypertension titrate home medication clinical course. DVT prophylaxis subQ Lovenox Awaiting home hospice set up. Subjective Date/time seen: 12/01/24 12:53 Interval history: Patient comfortable at bedside awaiting home hospice set up for discharge Possible discharge tomorrow, CC working up setting up home hospice Review of Systems Review of Systems: 12 systems were reviewed and are negativ e except for as per HPI. Exam Narrative: General: Moderately ill-appearing female lying on her left side in bed in no acute distress. Weight: 84.3 kg. BMI: 36.3. HEENT: PERRL, EOMI. Bilateral conjunctival icterus. Tacky mucous membranes. Neck: Supple. Respiratory: Respirations are nonlabored. Lung sounds are a bit coarse but are otherwise clear to auscultation. Cardiovascular: Regular rate and rhythm with S1-S2. Gastrointestinal: Abdomen is protuberant with positive bowel sounds. She is tender to deeper palpation throughout the abdomen without guarding or rebound tenderness. Negative Maurer sign. Skin: Warm, dry, and jaundiced. Extremities: No cyanosis, clubbing, or significant edema. Radial and pedal pulses intact. No palpable knots or cords. Negative Landy sign bilaterally. Neurological: Alert. Cranial nerves 2-12 are grossly intact. No gross focal deficits to casual conversation. Psychiatric: Pleasant and cooperative with normal mood and affect. Judgment and insight intact. Objective Data Vital Signs Vital Signs: Vital Signs - 24 hr 11/30/24 14:00 11/30/24 20:00 11/30/24 22:00 Temperature 97.9 F 97.1 F L Pulse Rate 127 H 133 H Respiratory Rate 18 18 Blood Pressure 130/65 154/91 H Pulse Oximetry 91 92 92 Oxygen Delivery Nasal Cannula Oxygen Flow Rate 3.5 12/01/24 05:11 12/01/24 08:00 12/01/24 08:09 Temperature 97.2 F L Pulse Rate 130 H 115 H 115 H Respiratory Rate 18 Blood Pressure 151/85 H Pulse Oximetry 93 91 Oxygen Delivery Nasal Cannula Oxygen Flow Rate 4 Intake/Output Intake/Output: Intake & Output 11/28/24 11/29/24 12/01/24 12/01/24 23:59 23:59 00:59 23:59 Intake Total 50 1716.7 100 Balance 50 1716.7 100 Meds/Results Medications: Active Medications Generic Name Dose Route Start Last Admin Trade Name Freq PRN Reason Stop Dose Admin Amlodipine Besylate 5 mg 11/30/24 09:00 12/01/24 08:09 Amlodipine Besylate 5 Mg Tablet PO 5 mg DAILY [facility] Administration Enoxaparin Sodium 40 mg 12/01/24 09:00 12/01/24 08:06 Enoxaparin 40 Mg/0.4 Ml Syringe SUB-Q 40 mg DAILY [facility] Administration Lactated Ringer's 1,000 mls @ 85 mls/hr 11/29/24 17:40 11/30/24 11:55 Lr - Lactated Ringers Iv IV CONT Not Given .[id number] [facility] Piperacillin/Tazobactam/Dextrose 3.375 gm in 50 mls @ 100 mls/hr 11/30/24 04:00 12/01/24 09:56 Zosyn 3.375 Gm/Ns 50 Ml IVPB Infused Q6H [facility] Infusion Metoprolol Succinate 50 mg 11/30/24 09:00 12/01/24 08:09 Metoprolol Succinate Ext Rel 50 Mg Tabcr PO 50 mg DAILY [facility] Administration Morphine Sulfate 2 mg 11/29/24 23:58 11/30/24 19:57 Morphine Sulfate (*Crx) 2 Mg/Ml Inj IV PUSH 2 mg Q4H PRN Administration Pain Rated 4-6 Morphine Sulfate 4 mg 11/29/24 23:58 11/30/24 15:10 Morphine Sulfate (*Crx) 4 Mg/Ml Inj IV PUSH 4 mg Q4H PRN Administration Pain Rated 7-10 Ondansetron HCl 4 mg 11/29/24 17:38 12/01/24 10:28 Ondansetron Inj 4 Mg/2 Ml Vial IV PUSH 4 mg Q4H PRN Administration Nausea Potassium Chloride 40 meq 11/30/24 08:00 12/01/24 08:09 Potassium Chloride 20 Meq Er Tablet PO 40 meq DAILY@0800 [facility] Administration Radiology Results: ITS Impressions Chest X-Ray 11/29/24 14:10 IMPRESSION: Cardiomegaly with cardiac decompensation and pulmonary edema. Pneumonia is not excluded. Chest/Abdomen/Pelvis CTA 11/29/24 16:09 IMPRESSION: CHEST: 1. Precarinal and hilar adenopathy. 2. Multiple nodular densities in both lungs suggestive of metastatic lesions. 3. Bilateral interstitial thickening which may indicate pneumonitis versus edema versus lymphangitis. 4. Left lower lobe atelectasis versus pneumonia. ABDOMEN/PELVIS: 1. Multiple liver metastatic lesions. Hepatomegaly. 2. Cholelithiasis 3. Ascites. 4. Highly suggestive pancreatic mass. MRI is advised. 5. Ileostomy with surrounding fluid collection measuring 7.6 x 5.4 cm. 6. Omental caking with adjacent soft tissue density in the transverse colon suggestive of a mass or inflammatory changes. Quality VTE Prophylaxis VTE prophylaxis: mechanical ordered
[2024-12-01 13:51] VITALS: BP 138/74; PULSE 111; RESP 16; TEMP 35.9; O2SAT 90
[2024-12-01] MEDS: LACTATED RINGERS 1,000 ML 85 ML IV CONT (15:51)
[2024-12-01] MEDS: HYDROcodone/acetaminophen (*CRX) 5-325 MG TABLET 1 TAB PO (16:49)
--- NOTE | 2024-12-01 17:38 | P.CONONC_ITS ---
Assessment and Plan Assessment and plan (1) Colon cancer: Qualifiers: Colon location: hepatic flexure Qualified Code(s): C18.3 - Malignant neoplasm of hepatic flexure Code(s): C18.9 - Malignant neoplasm of colon, unspecified Status: Chronic Plan Metastatic colon cancer. Patient is a 68-year-old female with diagnosis of static colon cancer with liver metastasis and peritoneal carcinomatosis came back into the hospital with nausea vomiting poor appetite and abdominal discomfort. CT scan chest abdomen pelvis from November 29 showed precarinal and hilar lymphadenopathy with total lung metastasis and multiple liver masses with highly suggestive pancreatic mass. Patient is quite uncomfortable with abdominal discomfort along with nausea vomiting and poor appetite. GI and surgery input noted. Patient and family has decided to proceed with comfort care and hospice. We will sign off. HPI Data of Consult Date/Time: 12/01/24 17:38 Requesting Physician: Jacob Hartley MD Primary Care Provider: Emperatriz OliviaMD Consult Narrative Narrative: Hayden Estrella is a 68 year old female with history of cervical cancer in the left- sided breast cancer was admitted to the hospital on November 19, 2024. With nausea vomiting and diarrhea. Prior to that she was admitted to the hospital in October 21 with a similar complaint and CT scan was performed that showed stricture in the transverse colon along with peritoneal carcinomatosis. Patient had colonoscopy and biopsy on September [address] abdomen on November 03 showed cholelithiasis. MRCP was performed that showed multiple liver masses along with thickening of the hepatic flexure of the colon with peritoneal nodularity and gallbladder distention secondary to cholecystitis. She is back in the hospital with similar symptoms. CT scan chest abdomen pelvis was repeated on March 01 that showed precarinal and hilar lymphadenopathy, nodular density in both lungs suggestive of metastatic disease multiple liver masses and highly suggestive pancreatic mass. General surgery and GI was again consulted. On the imaging study was only 1 gallstone with does not appear to be causing the obstruction based on the surgery input. Gastroenterology input suggested worsening of the symptom and liver likely due to metastatic liver disease and carcinomatosis rather than biliary obstruction. Patient is getting pain medicine with some pain control but still not able to eat much due to poor appetite and nausea vomiting Review of Systems 2 Review of Systems: Review of system as per HPI otherwise negative PMFSH Past Medical History Medical History (Updated 11/30/24 @ 13:14 by aRmos Capellan MD) Weight loss Kidney stones Stenosis of right carotid artery Metastatic adenocarcinoma Deep venous thrombosis Cervical cancer Breast cancer Hyperlipidemia Hypertension Surgical History Surgical History History of ileostomy (10/28/24) laparoscopic diverting loop ileostomy History of laparotomy open repair for prolapse, possibly cystocele History of total abdominal hysterectomy History of lumpectomy of left breast Family History Family History Sibling Lung cancer COVID Diabetes mellitus Father Leukemia Mother Heart trouble Social History Social History Social History: Surrogate medical decision maker: Suzan Rice, daughter ([phone]). Code status: Full code. Smoking status: Never smoker Second hand tobacco smoke exposure: No Alcohol intake: never Substance use: never Do You Feel Safe in your Home?: Yes Lack of Transportation: No Lack of Food: Never True Current Housing: I Have Housing Concerned About Future Housing: No Difficulty Paying Gas/Electric Bills: No Difficulty Paying for Meds: No Currently Unemployed: No Education: Grade School Difficulty w/ Childcare or Family Care: No Spiritual care concerns: No Meds Home Medications and Allergies Home Medications ?Medication ?Instructions ?Recorded ?Confirmed ?Type amlodipine 5 mg tablet 5 mg PO DAILY 10/15/24 11/29/24 History aspirin 81 mg chewable tablet 81 mg PO DAILY 10/15/24 11/29/24 History ezetimibe 10 mg tablet 10 mg PO DAILY 10/15/24 11/29/24 History metoprolol succinate 50 mg 50 mg PO Q12H 10/15/24 11/29/24 History tablet,extended release 24 hr pravastatin 40 mg tablet 40 mg PO DAILY 10/15/24 11/29/24 History benzonatate 100 mg capsule 100 mg PO TID #60 caps 11/23/24 11/29/24 Rx dextromethorphan-guaifenesin 10 10 ml PO Q4H PRN Cough #237 mL 11/23/24 11/29/24 Rx mg-100 mg/5 mL oral syrup potassium chloride 20 mEq 40 meq (2 x 20 mEq) PO DAILY #60 11/23/24 11/29/24 Rx tablet,extended release (K-Tab) tabs Allergies Allergy/AdvReac Type Severity Reaction Status Date / Time No Known Allergies Allergy Verified 11/29/24 12:51 Vital Signs Vital Signs - 24 hr 11/30/24 20:00 11/30/24 22:00 12/01/24 05:11 Temperature 36.2 C L 36.2 C L Pulse Rate 133 H 130 H Respiratory Rate 18 18 Blood Pressure 154/91 H 151/85 H Pulse Oximetry 92 92 93 Oxygen Delivery Nasal Cannula Oxygen Flow Rate 3.5 12/01/24 08:00 12/01/24 08:09 12/01/24 13:51 Temperature 35.9 C L Pulse Rate 115 H 115 H 111 H Respiratory Rate 16 Blood Pressure 138/74 Pulse Oximetry 91 90 Oxygen Delivery Nasal Cannula Oxygen Flow Rate 4 Exam 2 Narrative: Lungs are clear to auscultation bilaterally Cardiovascular regular rate rhythm no murmurs Abdomen distended with some diffuse tenderness Extremities no edema Results Labs 11/30/24 05:52 11/30/24 05:52
[2024-12-02] MEDS: PIPERACILLN/TAZ 3.375GM/NS50ML 3.375 GM/50 ML BAG IVPB ×2 (02:59→09:44)
[2024-12-02] MEDS: ONDANSETRON INJ 4 MG/2 ML VIAL IV PUSH ×2 (06:33→10:16)
--- NOTE | 2024-12-02 07:08 | P.CDI_ITS ---
CDI Query Clarification Request BMI: 36.3 Nutritional Diagnostic Statement: Please refer to the comprehensive nutrition assessment for further information. If you agree with diagnosis of Severe protein calorie malnutrition related to chronic metastatic cancer as evidenced by 7% weight loss/2 months; intakes <50% needs >1 week; moderate muscle wasting and fat loss. Please specify severity if known: * Mild * Moderate * Severe * Other/Unknown <Suzan Avendano RN - Last Filed: 12/02/24 07:10> Clarified Diagnosis Clarified Diagnosis: severe <Pauline Babcock PA-C - Last Filed: 12/02/24 08:25>
[2024-12-02 08:00] VITALS: O2SAT 91
--- NOTE | 2024-12-02 08:25 | PM.IMPN ---
Progress Note: A&P Assessment and Plan (1) Fever: Code(s): R50.9 - Fever, unspecified Status: Acute (2) Elevated liver enzymes: Code(s): R74.8 - Abnormal levels of other serum enzymes Status: Acute (3) Metastatic adenocarcinoma: Code(s): C79.9 - Secondary malignant neoplasm of unspecified site Status: Acute (4) Abnormal CT of the abdomen: Code(s): R93.5 - Abnormal findings on diagnostic imaging of other abdominal regions, including retroperitoneum Status: Acute (5) Hyperglycemia: Code(s): R73.9 - Hyperglycemia, unspecified Status: Acute (6) Hypertension: Code(s): I10 - Essential (primary) hypertension Status: Chronic Subjective Date/time seen: 12/02/24 08:25 Interval history: 68-year-old female who was recently diagnosed with 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 Review of Systems Review of Systems: All systems reviewed & are unremarkable except as noted in HPI and below Exam Narrative: AF General: well nourished, well-developed female in no acute respiratory distress who is nontoxic appearing, lying semi recumbent in bed. HEENT: Normocephalic. Atraumatic. Pupils equal round reactive to light. Extraocular movement intact. Sclera clear and anicteric. Nares patent. No oral lesions. Moist mucous membranes. Tongue is midline. Palate holden symmetrically. No facial asymmetry. Neck: Neck was supple. No dominant adenopathy, thyromegaly or masses. 2+ carotid upstrokes without bruits. Chest: Lungs are clear to auscultation bilaterlly. No wheezes or crackles. CV: Heart was regular rate and rhythm. S1-S2. No murmurs, gallops, or rubs. Abd: Abdomen was soft. Nontender. Nondistended. Postive bowel sounds. No organomegaly or masses. Ext: No clubbing, cyanosis, or edema. 2+ DP pulses bilaterally. Neuro: Patient is alert and oriented x4. Strenth is 5/5 in both upper and lower extremities. Cranial nerves 2-12 are intact. Speech is clear. Psych: Normal nood and affect. Patient is pleasant and cooperative. Skin: Warm and dry. No rashes noted. Objective Data Vital Signs Vital Signs: Vital Signs - 24 hr 12/01/24 13:51 Temperature 96.7 F L Pulse Rate 111 H Respiratory Rate 16 Blood Pressure 138/74 Pulse Oximetry 90 Intake/Output Intake/Output: Intake & Output 11/29/24 12/01/24 12/01/24 12/02/24 23:59 00:59 23:59 23:59 Intake Total 50 2200.0 200 200 Balance 50 2200.0 200 200 Meds/Results Medications: Active Medications Generic Name Dose Route Start Last Admin Trade Name Freq PRN Reason Stop Dose Admin Hydrocodone Bitart/Acetaminophen 1 tab 12/01/24 16:25 12/01/24 16:49 Hydrocodone/Acetaminophen (*Crx) 5-325 Mg Tablet PO 1 tab Q4H PRN Administration Pain Rated 4-6 Amlodipine Besylate 5 mg 11/30/24 09:00 12/01/24 08:09 Amlodipine Besylate 5 Mg Tablet PO 5 mg DAILY FLORINDA Administration Enoxaparin Sodium 40 mg 12/01/24 09:00 12/01/24 08:06 Enoxaparin 40 Mg/0.4 Ml Syringe SUB-Q 40 mg DAILY FLORINDA Administration Lactated Ringer's 1,000 mls @ 85 mls/hr 11/29/24 17:40 12/02/24 00:58 Lr - Lactated Ringers Iv IV CONT Not Given .[id number] FLORINDA Piperacillin/Tazobactam/Dextrose 3.375 gm in 50 mls @ 100 mls/hr 11/30/24 04:00 12/02/24 02:59 Zosyn 3.375 Gm/Ns 50 Ml IVPB 100 mls/hr Q6H FOLRINDA Administration Metoprolol Succinate 50 mg 11/30/24 09:00 12/01/24 08:09 Metoprolol Succinate Ext Rel 50 Mg Tabcr PO 50 mg DAILY FLORINDA Administration Morphine Sulfate 2 mg 11/29/24 23:58 11/30/24 19:57 Morphine Sulfate (*Crx) 2 Mg/Ml Inj IV PUSH 2 mg Q4H PRN Administration Pain Rated 4-6 Morphine Sulfate 4 mg 11/29/24 23:58 11/30/24 15:10 Morphine Sulfate (*Crx) 4 Mg/Ml Inj IV PUSH 4 mg Q4H PRN Administration Pain Rated 7-10 Ondansetron HCl 4 mg 11/29/24 17:38 12/02/24 06:33 Ondansetron Inj 4 Mg/2 Ml Vial IV PUSH 4 mg Q4H PRN Administration Nausea Potassium Chloride 40 meq 11/30/24 08:00 12/02/24 07:42 Potassium Chloride 20 Meq Er Tablet PO Not Given DAILY@0800 [facility] Radiology Results: ITS Impressions Chest X-Ray 11/29/24 14:10 IMPRESSION: Cardiomegaly with cardiac decompensation and pulmonary edema. Pneumonia is not excluded. Chest/Abdomen/Pelvis CTA 11/29/24 16:09 IMPRESSION: CHEST: 1. Precarinal and hilar adenopathy. 2. Multiple nodular densities in both lungs suggestive of metastatic lesions. 3. Bilateral interstitial thickening which may indicate pneumonitis versus edema versus lymphangitis. 4. Left lower lobe atelectasis versus pneumonia. ABDOMEN/PELVIS: 1. Multiple liver metastatic lesions. Hepatomegaly. 2. Cholelithiasis 3. Ascites. 4. Highly suggestive pancreatic mass. MRI is advised. 5. Ileostomy with surrounding fluid collection measuring 7.6 x 5.4 cm. 6. Omental caking with adjacent soft tissue density in the transverse colon suggestive of a mass or inflammatory changes. Quality VTE Prophylaxis VTE prophylaxis: mechanical ordered
[2024-12-02] MEDS: ENOXAPARIN 40 MG/0.4 ML SYRINGE SUB-Q (09:41)
[2024-12-02 09:43] VITALS: PULSE 115
[2024-12-02] MEDS: METOPROLOL SUCCINATE EXT REL 50 MG TABCR PO (09:43)
[2024-12-02] MEDS: amLODIPine BESYLATE 5 MG TABLET PO (09:43)
--- NOTE | 2024-12-02 12:16 | P.DS_ITS ---
DS: Admitting Diagnosis Discharge Date 12/02/2024 Admitting Diagnosis fever elevated liver enzymes metastatic adnenocarcinoma abnormal ct of the abdomen hyperglycemia hypertension DS: Discharge Diagnosis Discharge Diagnosis (1) Fever: Code(s): R50.9 - Fever, unspecified Status: Acute (2) Elevated liver enzymes: Code(s): R74.8 - Abnormal levels of other serum enzymes Status: Acute (3) Metastatic adenocarcinoma: Code(s): C79.9 - Secondary malignant neoplasm of unspecified site Status: Acute (4) Abnormal CT of the abdomen: Code(s): R93.5 - Abnormal findings on diagnostic imaging of other abdominal regions, including retroperitoneum Status: Acute (5) Hyperglycemia: Code(s): R73.9 - Hyperglycemia, unspecified Status: Acute (6) Hypertension: Code(s): I10 - Essential (primary) hypertension Status: Chronic DS: Summary Hospital Course Reason for hospitalization: fever elevated liver enzymes metastatic adnenocarcinoma abnormal ct of the abdomen hyperglycemia hypertension Hospital Course: 68-year-old female who was recently diagnosed with 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 Patient discharged home with family on [facility]. Status at Discharge Functional status at discharge: bed bound Time Spent with Patient Time attestation: Total time spent providing and/or coordinating discharge services: Time spent: Greater than 30 minutes Exam Narrative: AF HR 111 RR 16 SPO2 90 4L NC BP 138/74 General: female in no acute respiratory distress who is nontoxic appearing, lying semi recumbent in bed. HEENT: Normocephalic. Atraumatic. Extraocular movement intact. Sclera clear and anicteric. . No facial asymmetry. Chest: Lungs are clear to auscultation bilaterally. CV: Heart was regular rate and rhythm. Abd: Abdomen was soft. Nontender. Nondistended. Positive bowel sounds. Neuro: Patient is alert and oriented x4. Speech is clear. DS: Data Data Completed and Pending Completed studies during hospitalization: chest/abdomen/pelvis CTA chest xr chest xr Labs on day of discharge: Preliminary micro results at discharge 11/29/24 17:38 Blood Culture - Preliminary Blood 11/29/24 17:28 Blood Culture - Preliminary Blood Discharge Plan Discharge Attending physician on discharge: Reina Benjamin Consulting providers: Ramos Capellan; Abdulaziz Buchanan Discharging Clinician: Pauline Babcock Anticipated Discharge Date/Time: 12/02/24 11:36 Patient Disposition: Hospice - Home Activity: as tolerated Diet: as tolerated Discharge Instructions: Discharge disposition: Patient being discharged home with [facility] Medication adjustments per Hospice Augmentin sent to pharmacy to cover for abdominal infection, continue medication per hospice recommendations Thank you for choosing [facility] for your healthcare needs Per Care Coordination: [facility] ([phone]) will call to resume services at discharge. Patient Instructions: Hospice Care (GEN) Patient Language: Nepalese Stand Alone Forms: General Discharge Information Discharge Medications: New amoxicillin-pot clavulanate 875-125 mg tablet 1 tablet PO Q12H Qty: 8 0RF Continued amlodipine 5 mg tablet 5 mg PO DAILY ezetimibe 10 mg tablet 10 mg PO DAILY metoprolol succinate 50 mg tablet extended release 24 hr 50 mg PO Q12H pravastatin 40 mg tablet 40 mg PO DAILY aspirin 81 mg tablet,chewable 81 mg PO DAILY benzonatate 100 mg Capsule 100 mg PO TID Qty: 60 0RF dextromethorphan-guaifenesin 10-100 mg/5 mL Syrup 10 ml PO Q4H PRN (Reason: Cough) Qty: 237 0RF potassium chloride [K-Tab] 20 mEq Tablet Extended Release 40 meq PO DAILY Qty: 60 0RF Date of admission: 11/29/24 17:39 Primary Care Provider: Boaz*Emperatriz Admitting Provider: Jacob Hartley Attending physician on admission: Pauline Babcock Condition: Terminal Hospitalist MIPS Heart Failure (Exclusion) Patient has history of Heart Transplant or Left Ventricular Assistive Device?: No IF YES, STOP HERE Heart Failure (Qualifier) Patient has current or prior documentation of LVEF less than or equal to 40%, or mod/servere depressed LVSF?: No IF NO, STOP HERE
[2024-12-02] MEDS: ONDANSETRON HCL ODT 4 MG TABLET PO (12:50)
== END 2024-12-02 13:28 | disposition hospice, home (50) | DRG 374 ==
LOC: ANHED 14:23 → ANH3MEDSUR 18:21
PROVIDERS: Emergency Medicine; Physician Assistant; Admitting Provider Internal Medicine; Emergency Provider General Practice; PCP Internal Medicine Gastroenterology; Visit Provider Student in an Organized Health Care Education/Training Program
DX: C18.3 Malignant neoplasm of hepatic flexure (principal); E43 Unspecified severe protein-calorie malnutrition; C77.2 Secondary and unspecified malignant neoplasm of intra-abdominal lymph nodes; C78.7 Secondary malignant neoplasm of liver and intrahepatic bile duct; C78.00 Secondary malignant neoplasm of unspecified lung; E78.5 Hyperlipidemia, unspecified; I10 Essential (primary) hypertension; K86.9 Disease of pancreas, unspecified; R19.09 Other intra-abdominal and pelvic swelling, mass and lump; Z85.41 Personal history of malignant neoplasm of cervix uteri; Z85.3 Personal history of malignant neoplasm of breast; Z86.718 Personal history of other venous thrombosis and embolism; Z68.36 Body mass index [BMI] 36.0-36.9, adult; Z74.01 Bed confinement status
CPT/HCPCS: 36415; 71045; 71046; 71275; 74177; 80053; 81001; 82140; 83036; 83690; 83880; 84484; 85025; 85610; 85730; 87040; 93005; 96365; 96367; 96375; 96376; 99285; A9270; J0696; J1650; J1836; J2270; J2405; J2543; J7120; Q9967